=== PATIENT | male | born 1940 | race Caucasian/White ===

== ENCOUNTER 2019-05-05 18:19 | Emergency (ER) | payer MEDICARE, SELFPAY ==
[2019-05-05 18:19] VITALS: BP 157/90; PULSE 104; RESP 16; TEMP 36.3; O2SAT 98; BMI 21.8
[2019-05-05 18:45] VITALS: PULSE 99; RESP 15; O2SAT 99
--- NOTE | 2019-05-05 18:55 | RAD_ITS ---
STUDY: X-RAY - LUMBAR SPINE REASON FOR EXAM: Male, 78 years old. Lower back pain. Pain in legs. TECHNIQUE: 3 view(s) of the lumbar spine were obtained. COMPARISON: None FINDINGS: Normal lumbar lordosis. There is no substantial scoliosis. There is a normal alignment of the vertebrae. There is multilevel endplate spondylosis of the lumbar vertebrae. There is multi-level degenerative disc disease with multi-level disc space narrowing. There is no evidence of acute fracture or loss of vertebral axial height. Diffuse degenerative facet disease. There is atherosclerotic calcification of the abdominal aorta without a demonstrated aneurysm. RAD/Lumbar Spine 2 or 3 Views IMPRESSION: Degenerative changes of the spine, as detailed above. Electronically Signed: Antony Vu DO at 19:13 EDT Tel [phone], Service support ,
[2019-05-05] MEDS: HYDROcodone Bitartrate/Apap 5/325 Tablet PO (19:41)
--- NOTE | 2019-05-05 20:16 | ED.DCSUM_ITS ---
- ER Visit Summary Date of Service: 05/05/19 Chief Complaint: Back pain History of Present Illness: The patient is a 78 M with lumbar back pain that started around 11 AM. Nothing seemed to bring it on. Worse with movement. Nothing seems to make it better. No history of this in the past. The pain radiates down both legs. Patient denies abdominal pain or GI symptoms. Denies any urinary symptoms. Denies fever or systemic symptoms. Denies weakness or numbness. He has a history of peripheral arterial disease with stenting in his legs. He had an ultrasound of his legs last month which was unremarkable. Physical Examination: Afebrile and vital signs unremarkable. Abdomen soft and nontender. Lumbar spine is diffusely tender to palpation bilaterally over the lower lumbar region. Straight leg raise negative. Good strength and sensation. DP and PT pulses strong and equal bilaterally. Reflexes normal. Test Results: Lumbar x-rays show degenerative changes. He has a calcified aorta without aneurysm. Emergency Department Course and Treatment: Patient treated with [place] while awaiting results. I reviewed his imaging. Patient was feeling better on reevaluation and requested discharge. I believe this is myofascial pain. There is nothing to suggest GI, , vascular, or infectious etiology. No further imaging or diagnostic testing is indicated emergently. I believe the patient is appropriate for outpatient follow-up. He feels safe at home. He will follow-up with his family doctor or return for any worsening issues. He was given a short course of [place] for pain. Treatment Plan: As above Disposition: Discharged Impression: 1. Bilateral lumbar back pain This note was generated with [employer]akto[employer] dictation software. It may contain incorrect words, spelling, and punctuation that were not noted in review of the chart prior to signing ED Disposition - Plan for ED Patient: Referrals: Charanjit Nelson III, MD [Primary Care Provider] -
--- NOTE | 2019-05-05 20:19 | DCINST.ED_ITS ---
ED Disposition - Plan for ED Patient: Instructions: BACK PAIN (Acute or Chronic) Prescriptions: Hydrocodone Bitart/Apap 5-325 [Juana Diaz 5MG-325MG] 1 tab PO Q6H PRN PRN 3 Days #10 tab PRN Reason: Pain Prescription Printed Referrals: Charanjit Nelson III, MD [Primary Care Provider] -
[2019-05-05 20:27] VITALS: BP 167/74; PULSE 82; RESP 18
== END 2019-05-05 20:30 | disposition home or self-care (01) ==
PROVIDERS: Emergency Provider Emergency Medicine; Family Provider Family Medicine; PCP Family Medicine
DX: M54.5 Low back pain (principal); I70.0 Atherosclerosis of aorta; E11.9 Type 2 diabetes mellitus without complications; I10 Essential (primary) hypertension; E78.00 Pure hypercholesterolemia, unspecified; Z86.79 Personal history of other diseases of the circulatory system; Z95.828 Presence of other vascular implants and grafts; Z79.82 Long term (current) use of aspirin; Z79.4 Long term (current) use of insulin; Z79.899 Other long term (current) drug therapy; Z72.0 Tobacco use
CPT/HCPCS: 72100; 99283

== ENCOUNTER → 2019-12-11 | Outpatient (CLI) | payer MEDICARE, SELFPAY ==
--- NOTE | 2019-12-10 13:00 | FLU_PTH ---
PATIENT: ABEL SOLIS LOC: [facility] U#:[id number] AGE/SX: 79/M ROOM: RE12/11/[address]: Dr. Milla Person MD : [id number] BED: DIS: 12/11/2019 SPEC #: [id number] RECD: 12/11/19 12:44 STATUS: RACHNA REQ #: [id number] LOS: 12/10/19 13:[address]: Milla Person DEPT: CYTOLOGY RECD BY: Jayjay Self ENTERED: 12/11/19 13:23 SP TYPE: Fluid OTHR DR: Dr. Charanjit Nelson III, MD Tissues: A - Thyroid gland, NOS B - Thyroid gland, NOS Procedures: Special Stain Group II Surgery Specimen Level IV Cytospin Fluid Cytology Other HEADER OPERATION: Ultrasound-guided fine needle aspiration of right thyroid nodule PRE-OP DIAGNOSIS: Thyroid nodules TISSUE SUBMITTED: A - FNA right thyroid for cytology, B - FNA right thyroid x 8 slides DIAGNOSIS CYTOLOGY A. Right thyroid nodule fluid, ultrasound-guided FNA (cytospin and cell block): Consistent with benign follicular/colloid nodule. B. Right thyroid nodule, FNA (smears): Consistent with benign follicular/colloid nodule. Adequate for evaluation. ELIAS:gil 12/14/19 COMMENT Correlation with clinical, radiologic findings and appropriate follow up are necessary. CYTOLOGY STUDY Slides are reviewed. CYTOLOGY GROSS A - Received is 35 ml of turbid brown fluid labeled with the patient's name and and designated per the requisition as right thyroid. Submitted for cytology preparation including cell block. B - Received are eight smears labeled with the patient's name and designated per the requisition as right thyroid. Submitted for staining. / gil 12/11/19 TC:5 CPT: 85808, 88049, 82117
== END | disposition home or self-care (01) ==
PROVIDERS: PCP Family Medicine; Referring Provider Surgery; Visit Provider Surgery
DX: E04.2 Nontoxic multinodular goiter (principal)
CPT/HCPCS: 88108; 88161; 88305; 88313

== ENCOUNTER 2020-09-06 10:53 | Inpatient (IN) | payer MEDICARE, SELFPAY ==
[2020-09-06] VITALS (17 sets, daily range): BP systolic 135–174; BP diastolic 53–72; PULSE 72–100; RESP 13–18; TEMP 36.7–37.4; O2SAT 99–100; BMI 20.2; BMI 20.3; BMI 19.1
--- NOTE | 2020-09-06 11:45 | ED.VIS.GEN ---
History of Present Illness Chief Complaint: Abn Labs Informant: Patient Onset: Today Maximum Severity: Mild Narrative: Patient presents reporting his potassium is 6 on the blood draw during routine health visit check with his physician yesterday he was called about the above and told to come to the hospital he has no complaints he has been feeling well eating and drinking well normal bowel bladder habits he is on no supplements Past Medical History - Allergies and Home Meds Allergies/Adverse Reactions: Allergies varenicline tartrate [From Chantix] Allergy (Verified 09/06/20 10:54) makes me weird, hallucinations Primary Care Physician: Charanjit Nelson III, MD [Primary Care Provider] - Past Medical History: None Surgical History: - - wrist surgery in 1990 veing stripping, pad with stents 3 stents in left leg, abcess removed from his back Smoking Status: Current every day smoker - Family History Maternal Family History: Reports: No pertinent history, - - mother had a stroke, also had diabetes Paternal Family History: Reports: - - father of colon cancer, had diabetes Review of Systems General: Denies: Chills, Fever, Sweats Eyes: Denies: Visual changes - bilaterally, Diplopia ENT: Denies: Rhinorrhea, Sore throat Cardiovascular: Denies: Chest pain, Palpitations Respiratory: Denies: Dyspnea, Cough, Dyspnea on exertion Gastrointestinal: Denies: Abdominal pain, Nausea, Vomiting, Diarrhea, Melena, Hematochezia Genitourinary: Denies: Dysuria, Hematuria, Frequency Musculoskeletal: Denies: Back pain, Extremity Pain Skin: Denies: Rash, Wounds Neurological: Denies: Headache, Weakness, Numbness Physical Exam Vital Signs/Narrative: Vital Signs Temp Pulse Resp BP Pulse Ox 09/06/20 10:55 98.1 F 81 16 135/69 H 100 General: Well nourished, Well developed, No Acute Distress Head: Normocephalic, Atraumatic Eyes: Perrl, EOMI ENT: Moist mucous membranes, No rhinorrhea Neck: Supple, Nontender Cardiovascular: Regular rate, Regular rhythm, No murmurs Respiratory: No distress, CTA bilaterally, Chest nontender Abdomen: Soft, Nontender, Nondistended, Normal bowel sounds Back: Nontender, Normal Inspection Extremities: Nontender, No edema Skin: Normal color, No rash Neurological: Alert, Oriented x3, Cranial nerves II-XII grossly intact, Normal Strength, Normal Sensation Psychological: Normal affect, Normal Mood Diagnostic/Tx/Re-eval - Medical Decision Making Is resting comfortably in the bed he has absolutely no complaints eating and drinking well no complaints of fatigue chest pain fever cough the above screening labs were obtained to reevaluate for the high potassium reported on outpatient draw Patient's chemistry panel returns with potassium of 6.1, creatinine about 4.4 his baseline creatinine is about 2.6, his EKG shows a sinus rhythm rate of about 70 there appear to be peaked we will T waves compared to previous EKG, he was treated with the hyperkalemia protocol in addition he is noted to be anemic hemoglobin 6.6. He indicates he has had no vomiting of blood no black stools or red stools, he indicates he has been told he has anemia his baseline hemoglobin is running 9 range, he indicates he believes he had EGD and colonoscopy in the past and that he may have been told to use iron in the past for the anemia he is never required a blood transfusion I spoke with his attending physician Dr. vera given all the above he asked that he be considered for admission with hospitalist noting the patient was started on Benicar in the summer at that time again his baseline creatinine was about 2.6 and he had normal potassium he also noted that recent UAs have shown quite a bit of proteinuria Home Impression final hyperkalemia with EKG changes, history of unspecified anemia acute on chronic renal failure ED Disposition - Plan for ED Patient: Diagnosis: Acute on chronic renal failure hyperkale Referrals: Charanjit Nelson III, MD [Primary Care Provider] -
[2020-09-06 11:50] LABS: Absolute Lymphocyte Count 1.04 X10^3/uL (0.83-4.51); Absolute Neutrophil Count 5.7 X10^3/uL (2.0-7.7); Basophil# 0.04 X10^3/uL; Basophil% 0.5 % (0-1); Eosinophil# 0.13 X10^3/uL; Eosinophils% 1.7 % (0-5); Hematocrit 21.2 % (40-54); Hemoglobin 6.6 g/dL (13.0-16.5); Lymphocyte # 1.04 X10^3/ul (4.0); Lymphocyte % 13.9 % (19-41); Mean Corp Hgb Conc 31.1 g/dL (32-36); Mean Corpuscular Volume 99.5 fL (80-94); Mean Platelet Vol. 10.3 fl (6.2-12.0); Monocyte# 0.55 X10^3/uL; Monocyte% 7.4 % (0-10); NRBC Flagged by Analyzer 0 % (0-5); Neutrophil # 5.69 X10^3/uL (2.7-7.7); Neutrophil % 76.1 % (47-70); Platelet Count 254 K/mm3 (150-450); RBC Distribution Width CV 14.6 % (11.6-14.6); RBC Distribution Width SD 52.8 fl (35.1-43.9); Red Blood Count 2.13 M/mm3 (4.6-6.2); White Blood Count 7.5 K/mm3 (4.4-11.0)
[2020-09-06 12:04] LABS: Anion Gap 8 (5-15); BUN 62 mg/dL (7-18); BUN/Creat Ratio 14.4 RATIO (10-20); Calcium,Total 8.5 mg/dL (8.5-10.1); Chloride 113 mmol/L (98-107); EST Glomerular Filtration Rate 14 mL/min (>60); Est Glom Filt Rate - Afr Amer 17 mL/min (>60); Estimated Creatinine Clearance 11.97 ml/min; Glucose 84 mg/dL (74-106); Potassium 6.1 mmol/L (3.5-5.1); Sodium Level 136 mmol/L (136-145)
--- NOTE | 2020-09-06 13:06 | EKG12_ITS ---
Test Reason : ABNORMAL LABS Blood Pressure : / mmHG Vent. Rate : 069 BPM Atrial Rate : 069 BPM P-R Int : 188 ms QRS Dur : 080 ms QT Int : 386 ms P-R-T Axes : 050 015 057 degrees QTc Int : 413 ms Normal sinus rhythm Normal ECG Confirmed by INGRID BERRIOS, ASPEN ([id number]), film and video editor KAYKAY BRIONES ([id number]) on 09/09/2020 11:23:36 AM Referred By: RUBY/ELIAS Confirmed By:ASPEN QUINTERO MD
[2020-09-06] MEDS: Albuterol 2.5 MG/3 ML VIAL.NEB. INHALATION (13:55)
[2020-09-06 14:14] LABS: Bacteria 0 SEEN /hpf (None Seen); Mucous, Urine 0 SEEN /hpf (<or=2+); Squamous Epithelial Cells - UA 0 SEEN /hpf (0-5); White Blood Cells 0 SEEN /hpf (0-5)
[2020-09-06 14:24] LABS: Color, Urine Straw (Yellow); Glucose, Dipstick Normal (Normal); Ketone-Dipstick Negative (Negative); Leukocyte Esterase-Dipstick Negative /ul (Negative); Nitrite-Dipstick Negative (Negative); Occult Blood-Urine 10 /ul (Negative); Protein-Dipstick 500 mg/dl (Negative); Specific Gravity, Urine 1.015 (1.002-1.030); Urine Bilirubin Dipstick Negative (Negative); Urine Clarity Clear (Clear); Urine Urobilinogen Normal (Normal)
[2020-09-06] MEDS: Dextrose 50%-Water 25 GM/50 ML DISP.SYRIN IV (14:24)
[2020-09-06] MEDS: Calcium Gluconate 1 GM/10 ML Vial IV (14:24)
[2020-09-06] MEDS: Sodium Polystyrene Sulfonate 15 GM/60 ML UDC 30 GM PO (14:24)
[2020-09-06] MEDS: Insulin Lispro 5 UNIT in Syringe 0 ML 3 UNIT IV (14:25)
[2020-09-06 14:30] LABS: Red Blood Cells-Urine 0-5 SEEN /hpf (0-5)
--- NOTE | 2020-09-06 14:34 | NURSING ---
DR CORONA FOR DR ZAMBRANO
--- NOTE | 2020-09-06 14:47 | NURSING ---
PCU ACUTE ON CHRONIC RENAL FAILURE, HYPERKALEMIA, ANEMIA CHLOE
--- NOTE | 2020-09-06 14:58 | HP.PCM_ITS ---
<Breana Rodriguez DERMATOLOGY SALES REPRESENTATIVE - Last Filed: 09/06/20 15:45> Problem List (1) Colon polyps Status: Chronic (2) Tobacco use disorder Status: Chronic (3) PVD (peripheral vascular disease) Status: Chronic (4) Type II diabetes mellitus, uncontrolled Status: Chronic (5) Benign essential HTN Status: Chronic History of Present Illness Date of Admission: 09/06/20 Chief Complaint: Abnormal labs. The patient is a 79 year old M who presents to the emergency room due to abnormal labs. Patient states he was at his primary care provider yesterday for 6-month checkup and was called today and notified to come to ER due to abnormal labs. Patient is asymptomatic. He denies lightheadedness, shortness of breath, chest pain. Denies difficulty urinating or urinary symptoms. Denies blood in stool or dark stools. Denies nausea, vomiting, abdominal pain. Patient does state he has chronic right hip pain and needs his hip replaced. He is taking twice daily ibuprofen for pain. 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 Past Medical History Past Medical History (Chronic Problems): Chronic Problems Colon polyps (Chronic) Tobacco use disorder (Chronic) PVD (peripheral vascular disease) (Chronic) Type II diabetes mellitus, uncontrolled (Chronic) Benign essential HTN (Chronic) Allergies varenicline tartrate [From Chantix] Allergy (Verified 09/06/20 10:54) makes me weird, hallucinations Home Medications: Ambulatory Orders Medication Instructions Recorded Amlodipine [Norvasc] 10 mg PO DAILY 04/22/15 Insulin Glargine [Lantus SoloStar 12 units SC QHS 04/22/15 Pen] Hydrochlorothiazide [Hctz] 12.5 mg PO DAILY #30 tablet 05/02/15 Atorvastatin Calcium 10 mg PO QHS 05/05/19 Ferrous Sulfate 325 mg PO BID 05/05/19 Furosemide [Lasix] 20 mg PO DAILY 05/05/19 Cilostazol 100 mg PO BID 09/06/20 Labetalol [Trandate] 100 mg PO BID 09/06/20 Mycophenolate Mofetil 500 mg PO BID 09/06/20 Olmesartan Medoxomil [Benicar] 20 mg PO DAILY 09/06/20 Surgical History: - - wrist surgery in 1990 veing stripping, pad with stents 3 stents in left leg, abcess removed from his back, colon resection Psychiatric History: No pertinent psych hx Lives: Alone Smoking Status: Current every day smoker Tobacco Use: Cigarettes Alcohol: Sober - *Family History Maternal History Items: - - mother had a stroke, also had diabetes Paternal History Items: - - father of colon cancer, had diabetes Review of Systems Constitutional: Denies: Chills, Fever, Weight Change HEENT: Denies: Head Aches, Sinus Congestion, Sinus Drainage Cardiovascular: Denies: Chest Pain, Palpitations Respiratory: Denies: Cough, Shortness of breath at rest, Sputum production Gastrointestinal: Denies: Abdominal Pain, Nausea, Vomiting Genitourinary: Denies: Dysuria Musculoskeletal: Denies: Joint Pain, Joint Tenderness Skin: Denies: Rash, Wounds Neurological: Denies: Numbness, Tingling, Focal weakness Psychiatric: Denies: Anxiety, Depression, Homicidal Ideations, Suicidal Ideations Hematologic/ Lymphatic: Denies: Easy Bruising, Easy Bleeding VTE Information - Inpt Only VTE Present on Admission: No VTE Mechan Device Prophylaxis: SCD's VTE Pharm Prophylaxis ordered?: No Reason prophylaxis not ordered:: Medical Contraindication - Physical Exam Vitals/I&O's: Vital Signs Temp Pulse Resp BP Pulse Ox 98.1 F 94 15 172/72 H 100 09/06/20 10:55 09/06/20 14:04 09/06/20 14:04 09/06/20 14:04 09/06/20 10:55 Oxygen Delivery Method Room Air Weight: 129 lb 10.109 oz Body Mass Index (BMI) 20.2 Finger Stick Blood Glucose 146 Intake and Output for Last 24 Hours 09/04/20 09/05/20 09/06/20 23:59 23:59 23:59 Intake Total 500.05 / 500.05 Balance 500.05 / 500.05 General: Alert, Oriented x3, Cooperative HEENT: Atraumatic, PERRLA, EOMI, Normocephalic Neck: Supple, No JVD, Negative Carotid Bruits Lungs: Clear to auscultation, Normal air movement Cardiovascular: Regular rate, No murmurs Abdomen: Bowel Sounds Present, Soft, Non Tender Extremities: No clubbing, No cyanosis, No edema, Capillary Refill Less than 3 Seconds Skin: No rashes, No breakdown Musculoskeletal: No Tenderness to Palpation of Joints or Extremities Neurological: Cranial nerves II-XII grossly intact, Neuro grossly intact Psych/Mental Status: Normal Affect, Appropriate Laboratory Results 09/06/20 11:40: WBC 7.5, RBC 2.13 L, Hgb 6.6 L, Hct 21.2 L, MCV 99.5 H, MCH 31.0, MCHC 31.1 L, RDW Std Deviation 52.8 H, RDW Coeff of Mihaela 14.6, Plt Count 254, MPV 10.3, Immature Gran % (Auto) 0.400, Neut % (Auto) 76.1 H, Lymph % (Auto) 13.9 L, Shasta % (Auto) 7.4, Eos % (Auto) 1.7, Baso % (Auto) 0.5, Absolute Neuts (auto) 5.7, Absolute Lymphs (auto) 1.04, Nucleated RBC % 0 09/06/20 11:40: Sodium 136, Potassium 6.1 H*, Chloride 113 H, Carbon Dioxide 15.0 L, Anion Gap 8, BUN 62 H, Creatinine 4.30 H, Estim Creat Clear Calc 11.97, Est GFR (MDRD) Af Amer 17 L, Est GFR (MDRD) Non-Af 14 L, BUN/Creatinine Ratio 14.4, Glucose 84, Calcium 8.5 09/06/20 14:00: Urine Color Straw, Urine Clarity Clear, Urine pH 6.0, Ur Specific Corning 1.015, Urine Protein 500 H, Urine Glucose (UA) Normal, Urine Ketones Negative, Urine Occult Blood 10 H, Urine Nitrite Negative, Urine Bilirubin Negative, Urine Urobilinogen Normal, Ur Leukocyte Esterase Negative, Urine RBC 0-5 SEEN, Urine WBC 0 SEEN, Ur Squamous Epith Cells 0 SEEN, Urine B acteria 0 SEEN, Urine Mucus 0 SEEN Assessment/Plan 1. Acute blood loss anemia secondary to GI bleed on chronic anemia- history of bowel resection secondary to multiple polyps. Patient reports daily NSAID use due to right hip pain. IV PPI twice daily. Trend H&H. Transfuse 1 unit PRBC. Stool for occult blood ordered. 2. Acute kidney injury with hyperkalemia on chronic kidney disease stage III- hold ARB and HCTZ regimen. IV fluids, trend BMP. 3. Chronic right hip pain, arthritis- instructed on avoidance of NSAIDS. As needed pain regimen. 4. Type 2 diabetes [id number] with sliding scale insulin. Continue long-acting regimen. 5. Hypertension-stable, continue labetalol, amlodipine. Hold ARB. 6. PVD-continue statin. Hold cilostazol. History of vascular intervention. 7. Tobacco dependence-encouraged cessation. Current pack per day smoker. Nicotine replacement patch. 8. History of alcohol use-10 years sober. DVT prophylaxis- SCDs. This patient was seen by FAUSTINA Gonzalez under the supervision of Dr. Chun. <Solis Chun F - Last Filed: 09/06/20 16:54> History of Present Illness The patient is a 79 year old M [] Past Medical History Allergies varenicline tartrate [From Chantix] Allergy (Verified 09/06/20 10:54) makes me weird, hallucinations - Physical Exam Vitals/I&O's: Vital Signs Temp Pulse Resp BP Pulse Ox 98.4 F 84 18 156/71 H 99 09/06/20 16:16 09/06/20 16:16 09/06/20 16:16 09/06/20 16:16 09/06/20 16:16 Oxygen Delivery Method Room Air Weight: 126 lb 1.671 oz Body Mass Index (BMI) 19.1 Finger Stick Blood Glucose 146 Intake and Output for Last 24 Hours 09/04/20 09/05/20 09/06/20 23:59 23:59 23:59 Intake Total 500.05 / 500.05 Balance 500.05 / 500.05 Laboratory Results 09/06/20 11:40: WBC 7.5, RBC 2.13 L, Hgb 6.6 L, Hct 21.2 L, MCV 99.5 H, MCH 31.0, MCHC 31.1 L, RDW Std Deviation 52.8 H, RDW Coeff of Mihaela 14.6, Plt Count 254, MPV 10.3, Immature Gran % (Auto) 0.400, Neut % (Auto) 76.1 H, Lymph % (Auto) 13.9 L, Shasta % (Auto) 7.4, Eos % (Auto) 1.7, Baso % (Auto) 0.5, Absolute Neuts (auto) 5.7, Absolute Lymphs (auto) 1.04, Nucleated RBC % 0 09/06/20 11:40: Sodium 136, Potassium 6.1 H*, Chloride 113 H, Carbon Dioxide 15.0 L, Anion Gap 8, BUN 62 H, Creatinine 4.30 H, Estim Creat Clear Calc 11.97, Est GFR (MDRD) Af Amer 17 L, Est GFR (MDRD) Non-Af 14 L, BUN/Creatinine Ratio 14.4, Glucose 84, Calcium 8.5 09/06/20 14:00: Urine Color Straw, Urine Clarity Clear, Urine pH 6.0, Ur Specific [place] 1.015, Urine Protein 500 H, Urine Glucose (UA) Normal, Urine Ketones Negative, Urine Occult Blood 10 H, Urine Nitrite Negative, Urine Bilirubin Negative, Urine Urobilinogen Normal, Ur Leukocyte Esterase Negative, Urine RBC 0-5 SEEN, Urine WBC 0 SEEN, Ur Squamous Epith Cells 0 SEEN, Urine Bacteria 0 SEEN, Urine Mucus 0 SEEN 09/06/20 15:43: Blood Type Pending, Antibody Screen Pending Current Medications Acetaminophen (Acetaminophen 325 Mg Tablet) 650 mg PO Q6H PRN PRN PRN Reason: Pain Score 1-10 Amlodipine Besylate (Amlodipine 10 Mg Tablet) 10 mg PO DAILY [facility] Atorvastatin Calcium (Atorvastatin Calcium 10 Mg Tablet) 10 mg PO QHS [facility] Ferrous Sulfate (Ferrous Sulfate 325 Mg Tablet) 325 mg PO BIDCM [facility] Sodium Chloride () 1,000 mls @ 100 mls/hr IV .Q10H [facility] Last Admin: 09/06/20 16:39 Dose: 100 mls/hr Documented by: Pantoprazole Sodium 40 mg/ (Sodium Chloride) 110 mls @ 330 mls/hr IV Q12 [facility] Insulin Glargine (Insulin Glargine 100 Units/Ml Pen) 12 units SC QHS [facility] Insulin Human Lispro (Insulin Lispro 100 Unit/Ml Insuln.Pen) 0 unit SC ACHS [facility]; Protocol Last Admin: 09/06/20 16:43 Dose: Not Given Documented by: Labetalol HCl (Labetalol 100 Mg Tablet) 100 mg PO BID [facility] Mycophenolate Mofetil (Mycophenolate Mofetil 250 Mg Capsule) 500 mg PO BID [facility] Nicotine (Nicotine 14 Mg Patch) 14 mg TD DAILY [facility] Ondansetron HCl (Ondansetron 4 Mg/2 Ml Vial) 4 mg IV Q8H PRN PRN PRN Reason: NAUSEA/VOMITING Oxycodone HCl (Oxycodone 5 Mg Tablet) 5 mg PO Q4H PRN PRN PRN Reason: Pain Score 6-10 Addendum: Dr. Chun I personally examined the patient and reviewed the chart. I agree with the above. 79-year-old male presented to his PCP yesterday and had lab work which demonstrated a potassium of 6.0. He was called today to come to the ER where he was found to have a potassium of 6.1. EKGs were unremarkable and he did have Kayexalate as well as calcium gluconate and insulin and glucose given to try to lower his potassium. He denies any signs of overt bleeding but has noted that he has become more fatigued over the last several weeks. He states that he has been using Advil on a regular basis because of his hip pain. We will start him on Protonix and transfuse him at least 1 unit and with hemoglobin recheck. We will also try to test his stool for blood, he does have microscopic hematuria on his urine sample. Inpatient E&M: 19556 Init Hosp L3
[2020-09-06] MEDS: 0.9% Normal Saline 1,000 ML 100 ML IV (16:39)
[2020-09-06 16:50] LABS: Bedside Glucose 131 mg/dL (70-110)
[2020-09-06] MEDS: Ferrous Sulfate 325 MG Tablet PO (16:56)
[2020-09-06] MEDS: 0.9% Saline Lock 10 ML Syringe IV ×2 (17:51→22:20)
[2020-09-06 22:15] LABS: Bedside Glucose 131 mg/dL (70-110)
[2020-09-06] MEDS: Labetalol 100 MG Tablet PO (22:21)
[2020-09-06] MEDS: Atorvastatin Calcium 10 MG Tablet PO (22:21)
[2020-09-06] MEDS: Mycophenolate Mofetil 250 MG Capsule 500 MG PO (22:22)
[2020-09-07] VITALS (15 sets, daily range): BP systolic 148–173; BP diastolic 53–74; PULSE 59–99; RESP 18; TEMP 36.8–37.3; O2SAT 65–100
[2020-09-07 00:26] LABS: Hematocrit 20.8 % (40-54); Hemoglobin 6.5 g/dL (13.0-16.5)
[2020-09-07 07:05] LABS: Bedside Glucose 64 mg/dL (70-110)
[2020-09-07 07:11] LABS: Bedside Glucose 52 mg/dL (70-110)
[2020-09-07 07:11] LABS: Bedside Glucose 53 mg/dL (70-110)
[2020-09-07 07:26] LABS: Bedside Glucose 89 mg/dL (70-110)
[2020-09-07] MEDS: Ferrous Sulfate 325 MG Tablet PO ×2 (07:38→21:45)
[2020-09-07 09:13] LABS: Hematocrit 27.3 % (40-54); Hemoglobin 8.6 g/dL (13.0-16.5)
[2020-09-07] MEDS: amLODIPine 10 MG Tablet PO (09:25)
[2020-09-07] MEDS: Mycophenolate Mofetil 250 MG Capsule 500 MG PO ×2 (09:25→21:45)
[2020-09-07] MEDS: 0.9% Saline Lock 10 ML Syringe IV (09:25)
[2020-09-07] MEDS: Labetalol 100 MG Tablet PO ×2 (09:25→21:46)
[2020-09-07 09:36] LABS: Anion Gap 8 (5-15); BUN 63 mg/dL (7-18); BUN/Creat Ratio 15.7 RATIO (10-20); Calcium,Total 7.9 mg/dL (8.5-10.1); Chloride 114 mmol/L (98-107); Creatinine, Serum 4.01 mg/dL (0.70-1.30); EST Glomerular Filtration Rate 16 mL/min (>60); Est Glom Filt Rate - Afr Amer 19 mL/min (>60); Estimated Creatinine Clearance 12.48 ml/min; Glucose 85 mg/dL (74-106); Potassium 5.7 mmol/L (3.5-5.1); Sodium Level 138 mmol/L (136-145)
[2020-09-07 09:44] LABS: Ferritin 511 ng/mL (26-388); Iron 149 ug/dL (65-175); Iron Binding Capacity,Total 208 ug/dL (250-450); PERCENT IRON SATURATION 71.6 % (15.0-55.0)
--- NOTE | 2020-09-07 10:49 | CASEMGMT ---
JENIFER MCBRIDE assessment: Phone interview with patient for initial transition planning/care coordination assessment at this time. JENIFER MCBRIDE introduced self and role at [facility], pt voices understanding and consents to assessment at this time. Pt is A/O x4 at this time and answers all questions appropriately at this time. Care providers, pharmacy, and demographics verified at this time. Presentation: Sent by PCP for elev K+ Admitting dx: Hyperkalemia, anemia w/ MOODY PCP: Leslie TAY Specialists: simona Enamorado in [place](was supposed to have hip replacement but postponed at this time) Preferred Pharm[facility]: [facility]cription Benefit: [facility] Living Will/HPOA: Pt states has LW/HPOA and is aware that they are not on file at [facility] at this time. Pt states daughter, Jovita Jackman, is HPOA. LNOK: Jovita Jackman, daughter/HPOA Living Arrangements: Pt states lives alone in apartment with elevator access and states no concerns at home at this time. Pt states is independent with ADL's. Transportation: Pt states friends drive or hires rides and states no transportation concerns at this time. DME/HHC: Pt states no current DME or need for any at this time. Pt states has had HHC in the past with wound vac placement but states has not been to SNF in the past. Pt states no concerns with going home at time of discharge. Pt states is retired. 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 Pt states no further concerns/needs at this time. CM to follow for PT/OT evals and any further discharge planning/needs. Advised pt to ask for CM if any further questions/concerns/needs arise, voices understanding. Pt Goal: Home Plan[place] JENIFER MCBRIDE
[2020-09-07 11:41] LABS: Bedside Glucose 72 mg/dL (70-110)
[2020-09-07] MEDS: 0.9% Normal Saline 1,000 ML 100 ML IV ×2 (12:40→22:59)
--- NOTE | 2020-09-07 13:23 | PCM.PN.HOSP ---
Reason for Visit: abnormal lives Subjective: Feels well. Had some diarrhea post kayexalate. Vitals/I&O's: Vital Signs Temp Pulse Resp BP Pulse Ox 37.1 C 59 L 18 148/74 H 100 09/07/20 08:00 09/07/20 11:00 09/07/20 08:00 09/07/20 08:00 09/07/20 08:00 Oxygen Delivery Method Room Air Weight: 57.2 kg Body Mass Index (BMI) 19.1 Finger Stick Blood Glucose 146 Intake and Output for Last 24 Hours 09/05/20 09/06/20 09/07/20 23:59 23:59 23:59 Intake Total 1531.72 / 1641.72 1428.33 / 1428.33 Balance 1531.72 / 1641.72 1428.33 / 1428.33 General: Alert, No apparent distress HEENT: Atraumatic, Normocephalic Oral: Moist Mucosa, No Gingival or Mucosal Lesions/ Ulcerations Neck: No Nodes, Thyroid Normal Size and Texture Lungs: Clear to auscultation, Normal air movement, No rhonchi, No wheeze, No rales Cardiovascular: Regular rate, Regular Rhythm, Normal S1, Normal S2, No murmurs Abdomen: Bowel Sounds Present, Soft, Non Tender, Non-Distended, No Hepato-splenomegaly Extremities: No edema, No Calf Tenderness Skin: No rashes, No breakdown Psych/Mental Status: Normal Affect, Appropriate Microbiology Past 72 Hours 09/07/20 09:04 Stool Stool Occult Blood (MARYANN) - Final 09/06/20 22:15 Stool Stool Occult Blood (MARYANN) - Final Laboratory Results 09/06/20 14:00: Urine Color Straw, Urine Clarity Clear, Urine pH 6.0, Ur Specific [place] 1.015, Urine Protein 500 H, Urine Glucose (UA) Normal, Urine Ketones Negative, Urine Occult Blood 10 H, Urine Nitrite Negative, Urine Bilirubin Negative, Urine Urobilinogen Normal, Ur Leukocyte Esterase Negative, Urine RBC 0-5 SEEN, Urine WBC 0 SEEN, Ur Squamous Epith Cells 0 SEEN, Urine Bacteria 0 SEEN, Urine Mucus 0 SEEN 09/06/20 15:43: Blood Type A POSITIVE, Antibody Screen NEGATIVE 09/06/20 15:43: Crossmatch See Detail 09/06/20 16:32: POC Glucose 131 H 09/06/20 22:06: POC Glucose 131 H 09/07/20 00:15: Hgb 6.5 L, Hct 20.8 L 09/07/20 06:42: POC Glucose 52 L 09/07/20 06:44: POC Glucose 53 L 09/07/20 07:01: POC Glucose 64 L 09/07/20 07:22: POC Glucose 89 09/07/20 09:00: Sodium 138, Potassium 5.7 H, Chloride 114 H, Carbon Dioxide 16.0 L, Anion Gap 8, BUN 63 H, Creatinine 4.01 H, Estim Creat Clear Calc 12.48, Est GFR (MDRD) Af Amer 19 L, Est GFR (MDRD) Non-Af 16 L, BUN/Creatinine Ratio 15.7, Glucose 85, Calcium 7.9 L 09/07/20 09:00: Vitamin B12 Pending 09/07/20 09:00: Iron 149, TIBC 208 L, Iron Saturation 71.6 H, Ferritin 511 H 09/07/20 09:00: RBC Folate Hemolysate Pending, RBC Folate Pending, Hematocrit Pending 09/07/20 09:00: Hgb 8.6 L, Hct 27.3 L 09/07/20 11:22: POC Glucose 72 Current Medications Acetaminophen (Acetaminophen 325 Mg Tablet) 650 mg PO Q6H PRN PRN PRN Reason: Pain Score 1-10 Amlodipine Besylate (Amlodipine 10 Mg Tablet) 10 mg PO DAILY [facility] Last Admin: 09/07/20 09:25 Dose: 10 mg Documented by: Atorvastatin Calcium (Atorvastatin Calcium 10 Mg Tablet) 10 mg PO QHS [facility] Last Admin: 09/06/20 22:21 Dose: 10 mg Documented by: Ferrous Sulfate (Ferrous Sulfate 325 Mg Tablet) 325 mg PO BIDCM [facility] Last Admin: 09/07/20 07:38 Dose: 325 mg Documented by: Sodium Chloride () 1,000 mls @ 100 mls/hr IV .Q10H [facility] Last Admin: 09/07/20 12:40 Dose: 100 mls/hr Documented by: Pantoprazole Sodium 40 mg/ (Sodium Chloride) 110 mls @ 330 mls/hr IV Q12 [facility] Last Infusion: 09/07/20 09:48 Dose: Infused Documented by: Sodium Chloride () 500 mls @ 15 mls/hr IV PRN PRN PRN Reason: Blood Transfusion Sodium Chloride () 250 mls @ 15 mls/hr IV .[id number] PRN PRN Reason: Saline Flush Sodium Chloride () 250 mls @ 15 mls/hr IV .[id number] PRN PRN Reason: Additional IVPB Infusion Insulin Glargine (Insulin Glargine 100 Units/Ml Pen) 12 units SC QHS [facility] Last Admin: 09/06/20 22:20 Dose: 12 u Documented by: Insulin Human Lispro (Insulin Lispro 100 Unit/Ml Insuln.Pen) 0 unit SC ACHS [facility]; Protocol Last Admin: 09/07/20 11:23 Dose: Not Given Documented by: Labetalol HCl (Labetalol 100 Mg Tablet) 100 mg PO BID [facility] Last Admin: 09/07/20 09:25 Dose: 100 mg Documented by: Mycophenolate Mofetil (Mycophenolate Mofetil 250 Mg Capsule) 500 mg PO BID [facility] Last Admin: 09/07/20 09:25 Dose: 500 mg Documented by: Nicotine (Nicotine 14 Mg Patch) 14 mg TD DAILY [facility] Last Admin: 09/07/20 09:25 Dose: Not Given Documented by: Ondansetron HCl (Ondansetron 4 Mg/2 Ml Vial) 4 mg IV Q8H PRN PRN PRN Reason: NAUSEA/VOMITING Oxycodone HCl (Oxycodone 5 Mg Tablet) 5 mg PO Q4H PRN PRN PRN Reason: Pain Score 6-10 Sodium Chloride (0.9% Saline Lock 10 Ml Syringe) 10 - 40 ml IV UD PRN PRN Reason: SALINE FLUSH Last Admin: 09/07/20 09:25 Dose: 10 ml Documented by: STROKE Vital Signs/Narrative: Vital Signs Pulse 09/07/20 11:00 59 L Medical Necessity - Tobacco Use Smoking Status: Current every day smoker Tobacco Use: Cigarettes Assessment/Plan All Active Problems MOODY (acute kidney injury) (Acute) Hyperkalemia (Acute) Anemia (Acute) 1. 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 hold HCTZ, olmesartan monitor nephrology consult in v outpt 2. Hyperkalemia 2/2 MOODY, olmesartan recheck improved, but still elevated post Kayexalate 3. Anemia s/p 1 unit improved after transfusion studies post 1 unit: showed iron level and ferritin normal hemoccult pending 4. DM2 continue basal insulin 5. VTE prophylaxis: SCDs. Inpatient E&M: 57521 Subs Hosp L2
[2020-09-07 15:07] LABS: Anion Gap 6 (5-15); BUN 59 mg/dL (7-18); BUN/Creat Ratio 14.7 RATIO (10-20); Calcium,Total 7.8 mg/dL (8.5-10.1); Chloride 115 mmol/L (98-107); Creatinine, Serum 4.02 mg/dL (0.70-1.30); EST Glomerular Filtration Rate 15 mL/min (>60); Est Glom Filt Rate - Afr Amer 19 mL/min (>60); Estimated Creatinine Clearance 12.45 ml/min; Glucose 122 mg/dL (74-106); Potassium 6.4 mmol/L (3.5-5.1); Sodium Level 138 mmol/L (136-145)
[2020-09-07] MEDS: Sodium Polystyrene Sulfonate 15 GM/60 ML UDC PO (16:30)
[2020-09-07 16:56] LABS: Bedside Glucose 91 mg/dL (70-110)
[2020-09-07] MEDS: Atorvastatin Calcium 10 MG Tablet PO (21:46)
[2020-09-07 22:51] LABS: Bedside Glucose 135 mg/dL (70-110)
[2020-09-08 02:20] VITALS: BP 160/67; PULSE 68; RESP 19; TEMP 36.6; O2SAT 98
[2020-09-08 03:00] VITALS: PULSE 66
[2020-09-08 05:38] LABS: Absolute Lymphocyte Count 1.23 X10^3/uL (0.83-4.51); Absolute Neutrophil Count 5.8 X10^3/uL (2.0-7.7); Basophil# 0.03 X10^3/uL; Basophil% 0.4 % (0-1); Eosinophil# 0.17 X10^3/uL; Hematocrit 24.9 % (40-54); Hemoglobin 7.6 g/dL (13.0-16.5); Lymphocyte # 1.23 X10^3/ul (4.0); Lymphocyte % 14.8 % (19-41); Mean Corp Hgb Conc 30.5 g/dL (32-36); Mean Corpuscular Hgb 29.8 pg (27.0-32.0); Mean Corpuscular Volume 97.6 fL (80-94); Mean Platelet Vol. 9.6 fl (6.2-12.0); Monocyte# 1.05 X10^3/uL; Monocyte% 12.6 % (0-10); NRBC Flagged by Analyzer 0 % (0-5); Neutrophil # 5.82 X10^3/uL (2.7-7.7); Neutrophil % 69.8 % (47-70); Platelet Count 173 K/mm3 (150-450); RBC Distribution Width CV 15.7 % (11.6-14.6); RBC Distribution Width SD 56.2 fl (35.1-43.9); Red Blood Count 2.55 M/mm3 (4.6-6.2); White Blood Count 8.3 K/mm3 (4.4-11.0)
[2020-09-08 06:15] LABS: Anion Gap 8 (5-15); BUN 62 mg/dL (7-18); BUN/Creat Ratio 14.9 RATIO (10-20); Calcium,Total 7.8 mg/dL (8.5-10.1); Chloride 116 mmol/L (98-107); Creatinine, Serum 4.15 mg/dL (0.70-1.30); EST Glomerular Filtration Rate 15 mL/min (>60); Est Glom Filt Rate - Afr Amer 18 mL/min (>60); Estimated Creatinine Clearance 12.06 ml/min; Glucose 36 mg/dL (74-106); Potassium 5.2 mmol/L (3.5-5.1); Sodium Level 140 mmol/L (136-145)
--- NOTE | 2020-09-08 06:30 | NURSING ---
Addendum entered by Ankita Blanco 09/08/20 06:55: Rechecked BS, still was only 52. paged d/t no PRN orders for D50. put in orders, 1/2 amp given per protocol. JENIFER Joseph. Original Note: Lab called this RN to report a panic value, blood glucose of 36. This RN checked pt's blood sugar and it was 34. Pt denied any symptoms. Gave pt orange juice and PB w/ crackers. Rechecked in ten minutes, up to 47. Will recheck again in a bit. JENIFER Joseph
[2020-09-08] MEDS: Dextrose 50%-Water 25 GM/50 ML DISP.SYRIN IV (06:52)
[2020-09-08 07:00] VITALS: PULSE 72
[2020-09-08 07:46] LABS: Bedside Glucose 133 mg/dL (70-110)
[2020-09-08 07:46] LABS: Bedside Glucose 52 mg/dL (70-110)
[2020-09-08] MEDS: Ferrous Sulfate 325 MG Tablet PO (08:02)
[2020-09-08 08:15] LABS: Urea Nitrogen, Urine 409 mg/dL (NO RANGE EST.)
[2020-09-08 08:20] VITALS: BP 169/63; PULSE 65; RESP 18; TEMP 36.8; O2SAT 100
[2020-09-08 09:09] LABS: LDH 196 U/L (87-241)
--- NOTE | 2020-09-08 10:23 | DCINST_ITS ---
- Discharge Diagnoses Current Active Problems: Current Active and Chronic Problems Colon polyps (Chronic) Tobacco use disorder (Chronic) PVD (peripheral vascular disease) (Chronic) Type II diabetes mellitus, uncontrolled (Chronic) Benign essential HTN (Chronic) You will use the following diet at home:: Calorie/Carbohydrate Controlled (specify 1200, 1400, etc) - 1800 erick / day, Cardiac Your food should be the consistency of: Regular Your liquids should be the consistency of: Regular/Thin Discharge Activity: Return to Normal Activity Call your doctor if you observe: Shortness of breath, Dizziness, Fainting spells Additional Instructions: You will need to have a CBC and BMP (labs) checked in 1 week. You will need to arrange this with your PCP. Allergies/Adverse Reactions: Allergies varenicline tartrate [From Chantix] Allergy (Verified 09/06/20 10:54) makes me weird, hallucinations Medications to take at Discharge Amlodipine [Norvasc] 10 mg PO DAILY 04/22/15 Atorvastatin Calcium 10 mg PO QHS 05/05/19 Ferrous Sulfate 325 mg PO BID 05/05/19 Labetalol [Trandate (Beta Chema)] 100 mg PO BID 09/06/20 Mycophenolate Mofetil 500 mg PO BID 09/06/20 Primary Care Physician: Charanjit Nelson III, MD [Primary Care Provider] - Please follow up with your Primary Care Physician in: 1-2 weeks Test Results: Test results from this visit will be discussed in further detail at your follow- up appointment, if applicable. Please Follow Up With: Katie Hamilton DO - Nephrology When: 1-2 weeks Proposed Discharge Date: 09/08/20
[2020-09-08] MEDS: Mycophenolate Mofetil 250 MG Capsule 500 MG PO (10:46)
[2020-09-08] MEDS: Labetalol 100 MG Tablet PO (10:46)
[2020-09-08] MEDS: amLODIPine 10 MG Tablet PO (10:46)
[2020-09-08 10:50] VITALS: BP 169/63; PULSE 65; RESP 18; TEMP 36.8; O2SAT 100
[2020-09-08 11:00] VITALS: PULSE 63
--- NOTE | 2020-09-08 11:25 | DS.PCM_ITS ---
<Omar Linder - Last Filed: 09/08/20 11:25> Discharge Date and Diagnosis Date of Admission: 09/06/20 Date of Discharge: 09/08/20 - Primary Discharge Diagnosis Acute Problems: MOODY on CKD 4 with hyperkalemia PVD Hypertension Type 2 diabetes with hypoglycemia - Secondary Discharge Diagnosis Chronic Problems: Chronic Problems Colon polyps (Chronic) Tobacco use disorder (Chronic) PVD (peripheral vascular disease) (Chronic) Type II diabetes mellitus, uncontrolled (Chronic) Benign essential HTN (Chronic) Hospital Course and Treatment Imaging Results: Operations: colectomy Procedures: None Summary of Care Provided: Hospital course: The patient is a 79 year old M past medical history of polyps, tobacco use, PVD, type 2 diabetes, hypertension, who presented to the emergency room due to abnormal labs. He was in his normal state of health however his outpatient labs demonstrated acute kidney injury and hyperkalemia, anemia so he was sent to the emergency room. His hemoglobin was 6.6, potassium was 6.1, BUN 62, creatinine 4.3. He was placed in the progressive care unit. He was transfused with 2 units packed red blood cells. He was given Kayexalate and IV fluids. He had good improvement in his potassium. Hemoccult was negative x2. HCTZ, Lasix, and olmesartan were discontinued due to his declining renal function and hyperkalemia. Pletal was discontinued due to his anemia. While here he developed significant hypoglycemia while on his normal home Lantus dose. This was discontinued. His glucose and his blood pressure remained stable despite these changes to his medications. He was discharged home in stable condition. He will need follow-up with nephrology in 1 to 2 weeks, follow-up with PCP in 1 to 2 weeks, and follow-up with a basic metabolic panel and CBC in 1 week. This patient was seen by Omar Linder PA-C under the supervision of Doctor Horowitz. [] - Physical Exam Vitals/I&O's: Vital Signs Temp Pulse Resp BP Pulse Ox 98.3 F 65 18 169/63 H 100 09/08/20 10:50 09/08/20 10:50 09/08/20 10:50 09/08/20 10:50 09/08/20 10:50 Oxygen Delivery Method Room Air Weight: 126 lb 1.671 oz Body Mass Index (BMI) 19.1 Finger Stick Blood Glucose 146 Intake and Output for Last 24 Hours 09/06/20 09/07/20 09/08/20 23:59 23:59 23:59 Intake Total 1531.72 / 1641.72 2778.33 / 2898.33 120 / 120 Balance 1531.72 / 1641.72 2778.33 / 2898.33 120 / 120 General: Alert, Oriented x3, Cooperative HEENT: Atraumatic, PERRLA, EOMI, Normocephalic Neck: Supple, No JVD, Negative Carotid Bruits Lungs: Clear to auscultation, Normal air movement Cardiovascular: Regular rate, No murmurs Abdomen: Bowel Sounds Present, Soft, Non Tender Extremities: No edema, Capillary Refill Less than 3 Seconds Skin: No rashes, No breakdown Musculoskeletal: No Tenderness to Palpation of Joints or Extremities Neurological: Cranial nerves II-XII grossly intact Psych/Mental Status: Normal Affect, Appropriate, Alert and oriented to time, place, person, mood and affect Microbiology Past 72 Hours 09/07/20 09:04 Stool Stool Occult Blood (MARYANN) - Final 09/06/20 22:15 Stool Stool Occult Blood (MARYANN) - Final Laboratory Results 09/07/20 11:22: POC Glucose 72 09/07/20 14:12: Sodium 138, Potassium 6.4 H*, Chloride 115 H, Carbon Dioxide 17.0 L, Anion Gap 6, BUN 59 H, Creatinine 4.02 H, Estim Creat Clear Calc 12.45, Est GFR (MDRD) Af Amer 19 L, Est GFR (MDRD) Non-Af 15 L, BUN/Creatinine Ratio 14.7, Glucose 122 H, Calcium 7.8 L 09/07/20 16:33: POC Glucose 91 09/07/20 21:43: POC Glucose 135 H 09/08/20 04:31: WBC 8.3, RBC 2.55 L, Hgb 7.6 L, Hct 24.9 L, MCV 97.6 H, MCH 29.8, MCHC 30.5 L, RDW Std Deviation 56.2 H, RDW Coeff of Mihaela 15.7 H, Plt Count 173, MPV 9.6, Immature Gran % (Auto) 0.400, Neut % (Auto) 69.8, Lymph % (Auto) 14.8 L, [place] % (Auto) 12.6 H, Eos % (Auto) 2.0, Baso % (Auto) 0.4, Absolute Neuts (auto) 5.8, Absolute Lymphs (auto) 1.23, Nucleated RBC % 0 09/08/20 04:31: Sodium 140, Potassium 5.2 H, Chloride 116 H, Carbon Dioxide 16.0 L, Anion Gap 8, BUN 62 H, Creatinine 4.15 H, Estim Creat Clear Calc 12.06, Est GFR (MDRD) Af Amer 18 L, Est GFR (MDRD) Non-Af 15 L, BUN/Creatinine Ratio 14.9, Glucose 36 L*, Calcium 7.8 L 09/08/20 04:31: Lactate Dehydrogenase 196 09/08/20 06:39: POC Glucose 52 L 09/08/20 07:41: POC Glucose 133 H 09/08/20 07:45: Eos Smear Total Cells Pending 09/08/20 07:45: Urine Urea Nitrogen 409 09/08/20 07:45: Urine Creatinine 49.30 Current Medications Acetaminophen (Acetaminophen 325 Mg Tablet) 650 mg PO Q6H PRN PRN PRN Reason: Pain Score 1-10 Amlodipine Besylate (Amlodipine 10 Mg Tablet) 10 mg PO DAILY [facility] Last Admin: 09/08/20 10:46 Dose: 10 mg Documented by: Atorvastatin Calcium (Atorvastatin Calcium 10 Mg Tablet) 10 mg PO QHS [facility] Last Admin: 09/07/20 21:46 Dose: 10 mg Documented by: Dextrose (Dextrose 50%-Water 25 Gm/50 Ml Disp.Syrin) 0 gm IV X1 PRN; Protocol PRN Reason: Hypoglycemia Last Admin: 09/08/20 06:52 Dose: 25 gm Documented by: Ferrous Sulfate (Ferrous Sulfate 325 Mg Tablet) 325 mg PO BIDCM [facility] Last Admin: 09/08/20 08:02 Dose: 325 mg Documented by: Glucagon (Glucagon 1 Mg/Ml Syringe) 1 mg IM .X1 PRN PRN Reason: Hypoglycemia Sodium Chloride () 1,000 mls @ 100 mls/hr IV .Q10H [facility] Last Admin: 09/07/20 22:59 Dose: 100 mls/hr Documented by: Pantoprazole Sodium 40 mg/ (Sodium Chloride) 110 mls @ 330 mls/hr IV Q12 [facility] Last Admin: 11/26/20 10:38 Dose: 330 mls/hr Documented by: Sodium Chloride () 500 mls @ 15 mls/hr IV PRN PRN PRN Reason: Blood Transfusion Sodium Chloride () 250 mls @ 15 mls/hr IV .[id number] PRN PRN Reason: Saline Flush Sodium Chloride () 250 mls @ 15 mls/hr IV .[id number] PRN PRN Reason: Additional IVPB Infusion Labetalol HCl (Labetalol 100 Mg Tablet) 100 mg PO BID [facility] Last Admin: 09/08/20 10:46 Dose: 100 mg Documented by: Mycophenolate Mofetil (Mycophenolate Mofetil 250 Mg Capsule) 500 mg PO BID [facility] Last Admin: 09/08/20 10:46 Dose: 500 mg Documented by: Nicotine (Nicotine 14 Mg Patch) 14 mg TD DAILY [facility] Last Admin: 09/08/20 10:40 Dose: Not Given Documented by: Ondansetron HCl (Ondansetron 4 Mg/2 Ml Vial) 4 mg IV Q8H PRN PRN PRN Reason: NAUSEA/VOMITING Oxycodone HCl (Oxycodone 5 Mg Tablet) 5 mg PO Q4H PRN PRN PRN Reason: Pain Score 6-10 Sodium Chloride (0.9% Saline Lock 10 Ml Syringe) 10 - 40 ml IV UD PRN PRN Reason: SALINE FLUSH Last Admin: 09/07/20 09:25 Dose: 10 ml Documented by: Discharge Diet: Low fat/ Low Cholesterol, 1800 Calorie Control Diet, 2000 mg Sodium Diet Discharge Activity: Return to Normal Activity Call your doctor if you observe: Shortness of breath, Dizziness, Fainting spells Home Medications: Medications to take at Discharge Amlodipine [Norvasc] 10 mg PO DAILY 04/22/15 Atorvastatin Calcium 10 mg PO QHS 05/05/19 Ferrous Sulfate 325 mg PO BID 05/05/19 Labetalol [Trandate (Beta Chema)] 100 mg PO BID 09/06/20 Mycophenolate Mofetil 500 mg PO BID 09/06/20 Primary Care Physician: Charanjit Nelson III, MD [Primary Care Provider] - Please follow up with your Primary Care Physician in: 1-2 weeks Please Follow Up With: Katie Hamilton DO - Nephrology When: 1-2 weeks Disposition: Home Minutes spent on discharge:: 35 Patient Condition:: Stable Medical Necessity - Tobacco Use Smoking Status: Current every day smoker Tobacco Use: Cigarettes Meaningful Use Info Meaningful Use Diagnoses (Choose all that apply): None applicable <Ramana Cantrell - Last Filed: 09/08/20 13:01> Discharge Date and Diagnosis - Secondary Discharge Diagnosis Chronic Problems: Chronic Problems Colon polyps (Chronic) Tobacco use disorder (Chronic) PVD (peripheral vascular disease) (Chronic) Type II diabetes mellitus, uncontrolled (Chronic) Benign essential HTN (Chronic) Hospital Course and Treatment Imaging Results: 09/08/20 07:21 Kidney and Bladder [US] Urgent Procedures: None Summary of Care Provided: Patient seen and examined independently. Data reviewed. I agree with the above note by the physician environmental emergencies assistant. The patient is a 79 year old M presents with abnormal labs. Hemoglobin was found to be 6.6, potassium 6.1, creatinine 4.3. Patient instructed to come to the emergency room. Patient was transfused 2 units of packed red blood cells and his hemoglobin came up to 7.6. Iron studies performed after the initial transfusion were unremarkable., B12 and folate are still pending. Patient will require further work-up, including endoscopy in regards to his anemia. Patient will require periodic monitoring of his hemoglobin. For the patient's hyperkalemia, thought attributable to his chronic kidney disease and also his olmesartan. That has been held in addition, given the patient's chronic kidney disease, his HCTZ and for most mild will be held. Patient did have issue with hypoglycemia and his insulin has been recommended to be held for now as the risks outweigh the benefits. Patient is otherwise doing well. Patient did have diarrhea with Kayexalate that he did receive for his hyperkalemia. His hyperkalemia overall is improved. [] - Physical Exam Vitals/I&O's: Vital Signs Temp Pulse Resp BP Pulse Ox 36.8 C 63 18 169/63 H 100 09/08/20 10:50 09/08/20 11:00 09/08/20 10:50 09/08/20 10:50 09/08/20 10:50 Oxygen Delivery Method Room Air Weight: 57.2 kg Body Mass Index (BMI) 19.1 Finger Stick Blood Glucose 146 Intake and Output for Last 24 Hours 09/06/20 09/07/20 09/08/20 23:59 23:59 23:59 Intake Total 1531.72 / 1641.72 2778.33 / 2898.33 1470 / 1470 Balance 1531.72 / 1641.72 2778.33 / 2898.33 1470 / 1470 General: Alert, Cooperative HEENT: Atraumatic, Normocephalic Lungs: Clear to auscultation, Normal air movement Cardiovascular: Regular rate, No murmurs Abdomen: Bowel Sounds Present, Soft, Non Tender, Non-Distended Psych/Mental Status: Normal Affect, Appropriate Microbiology Past 72 Hours 09/07/20 09:04 Stool Stool Occult Blood (MARYANN) - Final 09/06/20 22:15 Stool Stool Occult Blood (MARYANN) - Final Laboratory Results 09/07/20 14:12: Sodium 138, Potassium 6.4 H*, Chloride 115 H, Carbon Dioxide 17.0 L, Anion Gap 6, BUN 59 H, Creatinine 4.02 H, Estim Creat Clear Calc 12.45, Est GFR (MDRD) Af Amer 19 L, Est GFR (MDRD) Non-Af 15 L, BUN/Creatinine Ratio 14.7, Glucose 122 H, Calcium 7.8 L 09/07/20 16:33: POC Glucose 91 09/07/20 21:43: POC Glucose 135 H 09/08/20 04:31: WBC 8.3, RBC 2.55 L, Hgb 7.6 L, Hct 24.9 L, MCV 97.6 H, MCH 29.8, MCHC 30.5 L, RDW Std Deviation 56.2 H, RDW Coeff of Mihaela 15.7 H, Plt Count 173, MPV 9.6, Immature Gran % (Auto) 0.400, Neut % (Auto) 69.8, Lymph % (Auto) 14.8 L, [place] % (Auto) 12.6 H, Eos % (Auto) 2.0, Baso % (Auto) 0.4, Absolute Neuts (auto) 5.8, Absolute Lymphs (auto) 1.23, Nucleated RBC % 0 09/08/20 04:31: Sodium 140, Potassium 5.2 H, Chloride 116 H, Carbon Dioxide 16.0 L, Anion Gap 8, BUN 62 H, Creatinine 4.15 H, Estim Creat Clear Calc 12.06, Est GFR (MDRD) Af Amer 18 L, Est GFR (MDRD) Non-Af 15 L, BUN/Creatinine Ratio 14.9, Glucose 36 L*, Calcium 7.8 L 09/08/20 04:31: Lactate Dehydrogenase 196 09/08/20 06:39: POC Glucose 52 L 09/08/20 07:41: POC Glucose 133 H 09/08/20 07:45: Eos Smear Total Cells Pending 09/08/20 07:45: Urine Urea Nitrogen 409 09/08/20 07:45: Urine Creatinine 49.30 09/08/20 11:30: POC Glucose 116 H Discharge Diet: Low fat/ Low Cholesterol, 1800 Calorie Control Diet, 2000 mg Sodium Diet Discharge Activity: Return to Normal Activity Call your doctor if you observe: Shortness of breath, Dizziness, Fainting spells Disposition: Home Minutes spent on discharge:: 35 Patient Condition:: Stable Meaningful Use Info Meaningful Use Diagnoses (Choose all that apply): None applicable Inpatient E&M: 64846 Disch Hosp
[2020-09-08] MEDS: 0.9% Saline Lock 10 ML Syringe IV (11:31)
[2020-09-08 11:40] LABS: Bedside Glucose 116 mg/dL (70-110)
[2020-09-09 07:06] LABS: Bedside Glucose 47 mg/dL (70-110)
[2020-09-09 07:06] LABS: Bedside Glucose 34 mg/dL (70-110)
[2020-09-09 14:08] LABS: Folate, RBC (Hct) Test 26.3 % (37.5-51.0)
[2020-09-09 14:27] LABS: Vitamin B12 315 pg/mL (211-911)
[2020-09-09 16:08] LABS: Folates, RBC Test 981 ng/mL (>498)
--- NOTE | 2020-09-09 16:36 | CASEMGMT ---
JENIFER MCBRIDE Discharge Follow-Up Phone Call. [place]: 10 Strata: 3 Discharge Date: 09/08/20 Adm Dx: Hypercalcemia, anemia, MOODY Call to pt to inquire about how he has been doing since being discharged from the hospital. Pt stated, I'm doing pretty darn good. He denies having any questions about the discharge instructions, stating, I need to contact Dr Nelson and Dr Hamilton to schedule appts yet, but other than that, everything is alright. Pt denies having any questions about his medications. He stated, Nope. I was out of one of the medications but they came in the mail today RN RAE inquired about what medications arrived today. Pt states 2 different ones arrived, the Atorvastatin and Cilostazol (Pletal). JENIFER MCBRIDE noted that Pletal was not on discharge medication list and reviewed discharge summary. Noted that Pletal was discontinued d/t the anemia. JENIFER MCBRIDE informed pt of this. Pt voices understanding and states he will stop taking it and voices appreciation for the call. He denies having any questions/concerns/needs. JENIFER MCBRIDE thanked pt for choosing [facility]. Ying LENTZ RN, CM
[2020-09-10 14:29] LABS: Eosinophil Ct. Urine No Eosinophils Seen % (.)
== END 2020-09-08 12:50 | disposition home or self-care (01) | DRG 812 ==
LOC: ED 12:31 → PCU 14:57
PROVIDERS: Nurse Practitioner Family; Physician Assistant; Admitting Provider Family Medicine; Emergency Provider Emergency Medicine; PCP Family Medicine
DX: D62 Acute posthemorrhagic anemia (principal); N17.9 Acute kidney failure, unspecified; N18.4 Chronic kidney disease, stage 4 (severe); E87.5 Hyperkalemia; E11.22 Type 2 diabetes mellitus with diabetic chronic kidney disease; I12.9 Hypertensive chronic kidney disease with stage 1 through stage 4 chronic kidney disease, or unspecified chronic kidney disease; E11.649 Type 2 diabetes mellitus with hypoglycemia without coma; E11.51 Type 2 diabetes mellitus with diabetic peripheral angiopathy without gangrene; M16.11 Unilateral primary osteoarthritis, right hip; G89.29 Other chronic pain; Z86.010 Personal history of colon polyps; F17.210 Nicotine dependence, cigarettes, uncomplicated; Z87.19 Personal history of other diseases of the digestive system; Z95.820 Peripheral vascular angioplasty status with implants and grafts; Z79.4 Long term (current) use of insulin; Z79.899 Other long term (current) drug therapy; Z90.49 Acquired absence of other specified parts of digestive tract
CPT/HCPCS: 36415; 80048; 81001; 82274; 82570; 82607; 82728; 82747; 82962; 83540; 83550; 83615; 84540; 85014; 85018; 85025; 86850; 86900; 86901; 86920; 86922; 87205; 93005; 94640; 99284; 99406; J7030; J7040; P9016; A4216; J0610

== ENCOUNTER → 2020-09-26 11:01 | Outpatient (CLI) | payer MEDICARE, SELFPAY ==
[2020-09-06 16:18] VITALS: BMI 19.1
--- NOTE | 2020-09-26 11:06 | US_ITS ---
STUDY: RENAL ULTRASOUND - COMPLETE REASON FOR EXAM: Male, 79 years old. CKD 4 TECHNIQUE: Ultrasound evaluation of the kidneys was performed with real-time and static jung-scale imaging. COMPARISON: None. FINDINGS: RIGHT KIDNEY: Normal location of the right kidney, which is normal in size. The right kidney measures 10.0 cm. Increased echogenicity renal cortex consistent with chronic medical renal disease. The renal cortex measures 1.7 cm. 2.5 cm cyst in the upper pole the right kidney. 2 other exophytic cyst in the midsection the right kidney. There are no right renal calculi. There is no right hydronephrosis. DISTAL RIGHT URETER: There is non-visualization of the distal right ureter. There is no demonstrated right ureterovesical junction calculus. There is a visualized right ureteral jet. LEFT KIDNEY: Normal location of the left kidney, which is normal in size. The left kidney measures 9.2 cm. Increased echogenicity renal cortex consistent with chronic medical renal disease. The renal cortex measures 1.8 cm. 1.2 cm exophytic cyst of the lower pole the left kidney. There are no left renal calculi. There is no left hydronephrosis. DISTAL LEFT URETER: There is non-visualization of the distal left ureter. There is no demonstrated left ureterovesical junction calculus. There is a visualized left ureteral jet. BLADDER: The distended urinary bladder has a volume of 57 ml. The empty urinary bladder has a volume of ml. There is a normal wall thickness of the distended urinary bladder. There is no demonstrated mass within the urinary bladder. There are no demonstrated bladder calculi. US/Kidney and Bladder IMPRESSION: Chronic medical renal disease but no hydronephrosis to suggest obstruction. Electronically Signed: Uvaldo Kim MD at 13:34 EST Tel , Service support ,
== END ==
PROVIDERS: PCP Family Medicine; Referring Provider Internal Medicine Nephrology; Visit Provider Internal Medicine Nephrology
DX: N18.4 Chronic kidney disease, stage 4 (severe) (principal)
CPT/HCPCS: 76770

== ENCOUNTER → 2020-10-26 08:22 | Outpatient (CLI) | payer MEDICARE, SELFPAY ==
[2020-09-06 16:18] VITALS: BMI 19.1
[2020-10-26 08:35] VITALS: BP 150/71; PULSE 81; RESP 18; TEMP 36.5; O2SAT 100
[2020-10-26 09:11] VITALS: BP 150/71; PULSE 81; RESP 16; TEMP 36.5; O2SAT 100
[2020-10-26 09:26] VITALS: BP 154/79; PULSE 73; RESP 16; TEMP 36.6
[2020-10-26] MEDS: 0.9% NaCl Peripheral Flush Adult/Peds IV (09:30)
[2020-10-26 10:26] VITALS: BP 164/70; PULSE 68; RESP 16; TEMP 36.3; O2SAT 100
[2020-10-26 11:40] VITALS: BP 181/74; PULSE 72; RESP 16; TEMP 36.4; O2SAT 99
[2020-10-26] MEDS: Furosemide 40 MG/4 ML Vial IV (11:56)
[2020-10-26 12:42] VITALS: BP 174/67; PULSE 78; RESP 16; TEMP 36.4; O2SAT 100
== END ==
PROVIDERS: PCP Family Medicine; Referring Provider Internal Medicine Hematology & Oncology; Visit Provider Internal Medicine Hematology & Oncology
DX: D64.9 Anemia, unspecified (principal); N18.9 Chronic kidney disease, unspecified
CPT/HCPCS: 36430; 86850; 86900; 86901; 86920; 86922; J7040; P9016; A4216; J1940

== ENCOUNTER → 2020-10-31 14:18 | Outpatient (CLI) | payer MEDICARE, SELFPAY ==
[2020-09-06 16:18] VITALS: BMI 19.1
[2020-10-31 15:52] LABS: Hematocrit 25.7 % (40-54); Hemoglobin 8.3 g/dL (13.0-16.5); Mean Corp Hgb Conc 32.3 g/dL (32-36); Mean Corpuscular Hgb 29.4 pg (27.0-32.0); Mean Corpuscular Volume 91.1 fL (80-94); Mean Platelet Vol. 10.5 fl (6.2-12.0); Platelet Count 290 K/mm3 (150-450); RBC Distribution Width CV 17.4 % (11.6-14.6); RBC Distribution Width SD 58.8 fl (35.1-43.9); Red Blood Count 2.82 M/mm3 (4.6-6.2); White Blood Count 8.9 K/mm3 (4.4-11.0)
[2020-10-31 16:18] LABS: Vitamin D,25 Hydroxy 10.6 ng/mL
[2020-10-31 16:35] LABS: Albumin, Serum 3.1 g/dL (3.2-5.0); BUN 69 mg/dL (7-18); BUN/Creat Ratio 11.6 RATIO (10-20); Calcium,Total 8.4 mg/dL (8.5-10.1); Chloride 109 mmol/L (98-107); Creatinine, Serum 5.93 mg/dL (0.70-1.30); EST Glomerular Filtration Rate 10 mL/min (>60); Est Glom Filt Rate - Afr Amer 12 mL/min (>60); Glucose 134 mg/dL (74-106); Phosphorus 8.8 mg/dL (2.5-4.9); Potassium 4.7 mmol/L (3.5-5.1); Sodium Level 136 mmol/L (136-145)
[2020-11-01 08:37] LABS: PTHIN 517.8 pg/mL (18.4-80.1)
== END ==
PROVIDERS: PCP Family Medicine; Referring Provider Internal Medicine Nephrology; Visit Provider Internal Medicine Nephrology
DX: N18.4 Chronic kidney disease, stage 4 (severe) (principal); D64.9 Anemia, unspecified
CPT/HCPCS: 36415; 80069; 82306; 83970; 85027

== ENCOUNTER → 2020-11-02 11:41 | Outpatient (CLI) | payer MEDICARE, SELFPAY ==
[2020-11-02 13:23] LABS: Hepatitis B Surface Antigen Non-Reactive (Nonreactive)
[2020-11-03 14:51] LABS: Hepatitis B Core Ab Total Negative (Negative)
== END ==
PROVIDERS: PCP Family Medicine; Visit Provider Internal Medicine Nephrology
DX: N18.5 Chronic kidney disease, stage 5 (principal)
CPT/HCPCS: 36415; 86704; 87340

== ENCOUNTER 2020-11-04 06:00 | Day surgery (SDC) | payer MEDICARE, SELFPAY ==
[2020-11-03 09:17] VITALS: BMI 20.5
[2020-11-04] VITALS (8 sets, daily range): BP systolic 151–165; BP diastolic 56–68; PULSE 71–78; RESP 16–20; TEMP 36.5–37.1; O2SAT 98–100; BMI 20.5
--- NOTE | 2020-11-04 06:17 | HP.PCM_ITS ---
Problem List (1) Chronic renal failure, stage 5 Status: Chronic History and Physical Date of Admission: 11/04/20 Intake Visit Reasons: CHEST CATH PLACEMENT Chief Complaint: dialysis cath placement Shipping Lead Required: No Is patient in pain?: No Allergies varenicline tartrate [From Chantix] Allergy (Verified 11/03/20 09:18) makes me weird, hallucinations Medications Amlodipine [Norvasc] 10 mg PO DAILY 04/22/15 [History Confirmed 11/03/20] Atorvastatin Calcium 10 mg PO QHS 05/05/19 [History Confirmed 11/03/20] Ferrous Sulfate 325 mg PO BID 05/05/19 [History Confirmed 11/03/20] Mycophenolate Mofetil 500 mg PO BID 09/06/20 [History Confirmed 11/03/20] calcium acetate(phosphat bind) 667 mg capsule 667 mg PO ONCE 11/03/20 [History Confirmed 11/03/20] ergocalciferol (vitamin D2) 1,250 mcg (50,000 unit) capsule 1,250 mcg PO QMONTH 11/03/20 [History Confirmed 11/03/20] [facility] Medical History (Updated 11/03/20 @ 09:[address] Meir Nelson MD) Chronic renal failure, stage 5 (Chronic) Brain aneurysm (Acute) History of GI bleed (Acute) Atrial fibrillation (Acute) Hepatitis C (Acute) CVA (cerebral vascular accident) (Acute) COPD (chronic obstructive pulmonary disease) (Chronic) Asthma (Acute) Sleep apnea (Acute) MOODY (acute kidney injury) (Acute) Hyperkalemia (Acute) Anemia (Acute) Colon polyps (Chronic) Tobacco use disorder (Chronic) PVD (peripheral vascular disease) (Chronic) Type II diabetes mellitus, uncontrolled (Chronic) Benign essential HTN (Chronic) Surgical History (Updated 11/03/20 @ 09:16 by Marilyn Booth) History of vein stripping (Acute) History of surgery on left wrist (Acute) History of cataract extraction (Acute) History of colectomy (Acute) History of colonoscopy (Acute ~06/2020) Family History Mother CVA (cerebral vascular accident) Diabetes Hypertension Father Colon cancer Diabetes Brother Diabetes Social History (Updated 11/03/20 @ 10:[address] Meir Nelson MD) Smoking Status: Current every day smoker HPI HPI HPI: ABEL SOLIS, is a 79 M who presents to the office today for referred today for urgent placement of tunneled dialysis catheters. The patient is referred by Dr. Katie Hamilton and a written copy my surgical consult recommendations will return to her. The patient was discharged from the [facility] on September 08, 2020 with the following problem list: MOODY on CKD 4 with hyperkalemia PVD Hypertension Type 2 diabetes with hypoglycemia The patient states that at discharge he was at 15 cc/min creatinine clearance and now he is at 10. He is scheduled to have bilateral upper extremity vein mapping tomorrow. A request has been made for urgent placement of tunneled dialysis catheters to facilitate hemodialysis. The patient otherwise generally feels well. There has been a slow progressive weight loss. He is accompanied by his daughter today. He claims to have had bilateral lower extremity surgery per Dr. Laura Barba. For that he was on anticoagulant. Again that has been recently discontinued. RUN DATE: 11/03/20 Test Result Flag Adult Reference Range RENAL GLU 134 H 74-106 mg/dL Fasting Glucose result greater than or equal to 126 mg/dL suggests DIABETES MELLITUS per A.D.A. criteria. Please note revised GLUCOSE reference range effective 11/15/2017. BUN 69 H 7-18 mg/dL CREAT,SERUM 5.93 H 0.70-1.30 mg/dL The validity of the calculated GFR & GFRAA in patients over 70 years has not been determined. Clinical correlation is essential. EST GFR 10 L >60 mL/min Non- GFR Calc EST GFR - AA 12 L >60 mL/min GFR Calc BUN/CRE 11.6 10-20 RATIO ALB 3.1 L 3.2-5.0 g/dL CA,Total 8.4 L 8.5-10.1 mg/dL PHOS 8.8 H 2.5-4.9 mg/dL NA 136 136-145 mmol/L Potassium 4.7 3.5-5.1 mmol/L CL 109 H 98-107 mmol/L CO2 12.0 L 21.0-32.0 mmol/L HPI HPI HPI: ABEL SOLIS, is a 79 M who presents to the office today for ROS General General: Yes fatigue; no weight change, appetite, colon cancer, breast cancer or weakness HEENT HEENT: Yes eye surgery; no difficulty swallowing, eye injury, swollen glands or hoarseness Endo Endocrine: Yes diabetes mellitus; no thyroid disease, thyroid cancer, Hair loss, heat intolerance or cold int olerance [facility] [place] Musculoskeletal: No back problems, arthritis, rheumatoid arthritis, gout or joint pain Cardio Cardiovascular: Yes high blood pressure; no murmur, pacemaker, heart disease, atrial fibrillation, heart attack, heart stent, palpitations, shortness of breat with exertion or chest pain Psych Psychiatric: No depression, anxiety or hearing voices Resp Respiratory: Yes shortness of breath, Yes sleep apnea, No cough, No COPD, No asthma, No emphysema, No wheezing Gastro Gastrointestinal: No abdominal pain, No nausea or vomiting, No diarrhea, No constipation, No blood in stool, No acid reflux, No hemorrhoids, No ulcers, No gallbladder problem, No black,tarry stools [place] Hematologic: No blood thinners, No blood disorders, No bleeding, Yes anemia, No blood clots Neuro Neurologic: No weakness Exam Const General: cooperative, comfortable, no acute distress Nutritional Appearance: underweight Orientation: alert, awake [facility] Head: normal to inspection Chest Chest palpation & inspection: normal inspection of the chest Resp Effort & Inspection: normal respiratory effort Auscultation: clear to auscultation bilaterally Cardio Rate: regular rate Rhythm: regular rhythm Heart Sounds: no murmurs GI Palpation: soft, no hepatosplenomegaly Other: Scaphoid, evidence of weight loss, no hepatosplenomegaly, [facility] [place] Cervical Spine: normal cervical lordosis Neuro Cognition: normal cognition Extrem General: no calf tenderness Other: Mild right lower extremity nonpitting edema Psych Affect: normal affect Assessment & Plan Problems 1. Chronic renal failure, stage 5 N18.5 Plan Stage V chronic renal failure. I recommended the patient tolerated Alysis catheter. Plan for the right IJ approach possible left. He is aware of the technique, benefit, risk of alternatives. We will expedite his care. He is scheduled for tomorrow. He has not yet had bilateral upper extremity vein mapping. I anticipate that he would be a candidate for future AV fistula creation. We will subsequently see him back in the office post vein mapping to evaluate for possible future fistula creation as well. The patient and his daughter have had an opportunity to ask and have questions answered. They would like to proceed with surgical treatment. Copy: Dr. Katie Hamilton and Dr. Charanjit Nelson, III Meri Nelson M.D., F.A.C.S. Coding Level of Care Code 79635 Diagnoses Chronic renal failure, stage 5 N18.5 I have re-examined the patient. There are no clinical changes since date of exam. Procedure Criteria Procedure Type: Elective COVID Risk Discussion: The surgeon/proceduralist and patient have discussed in detail the risk of exposure to and/or potential harm posed by the COVID-19 virus with having a surgery/procedure at this time versus the risk of delaying the surgery/procedure. It is not possible to know either the risk of delaying the surgery or procedure or chance of getting an infection with perfect accuracy, but a joint decision was made between the patient and the surgeon/proceduralist to proceed at this time with the scheduled surgery/procedure as indicated on the consent form.
[2020-11-04] MEDS: 0.9% Normal Saline 1,000 ML 30 ML IV (07:03)
--- NOTE | 2020-11-04 07:08 | DCINST_ITS ---
Discharge Diet: Renal Diet Discharge Activity: May Not Shower, May Take a Tub Bath May shower in (days): 1 Lifting Restrictions: 10 pounds Call your doctor if your incision/area has: Continuous Slow Oozing, Sudden Increased Bleeding, Increased Pain/ Swelling, Increased Redness, Foul Smelling Discharge Call your doctor if you observe: Fever of 101 or Higher Suture Line Care: Avoid Pulling/Pushing, Avoid Pinching/Bending Additional Dressing/Incision Instructions:: Dressing changes will typically be performed at the dialysis center. Please contact Dr. Katie Hamilton and your dialysis center so as to initiate hemodialysis treatment. Additional Instructions: Office follow-up should be confirmed after you have your vein mapping procedure so we can discuss future creation of an arteriovenous hemodialysis fistula Allergies/Adverse Reactions: Allergies varenicline tartrate [From Chantix] Allergy (Verified 11/04/20 06:26) makes me weird, hallucinations Medications to take at Discharge Amlodipine [Norvasc] 10 mg PO DAILY 04/22/15 Atorvastatin Calcium 10 mg PO QHS 05/05/19 Ferrous Sulfate 325 mg PO BID 05/05/19 Mycophenolate Mofetil 500 mg PO BID 09/06/20 calcium acetate(phosphat bind) 667 mg capsule 667 mg PO ONCE 11/03/20 ergocalciferol (vitamin D2) 1,250 mcg (50,000 unit) capsule 1,250 mcg PO QMONTH 11/03/20 Primary Care Physician: Charanjit Nelson III, MD [Primary Care Provider] - Test Results: Test results from this visit will be discussed in further detail at your follow- up appointment, if applicable. Please Follow Up With: Meir Nelson MD - [phone] When: Confirm office appt. please
[2020-11-04 07:10] LABS: Bedside Glucose 106 mg/dL (70-110)
[2020-11-04] MEDS: Cefazolin 2 GM in 0.9% Normal Saline 100 ML IV (07:26)
[2020-11-04] MEDS: Heparin 10,000 UNITS/10 ML Vial 10000 UNITS (07:58)
[2020-11-04] MEDS: Bupivacaine Mpf 0.5% 30 ML VIAL (08:01)
[2020-11-04] MEDS: Lidocaine 1% (30 ml sdv) 30 ML Vial (08:02)
--- NOTE | 2020-11-04 08:05 | OP.PCM_ITS ---
Problem List (1) Chronic renal failure, stage 5 Status: Chronic Report of Operation Date of Procedure: 11/04/20 Pre-Operative Diagnosis: Stage V chronic renal failure Post-Operative Diagnosis: Same Surgery/Procedure Performed:: Right internal jugular 19 cm precurved palindrome catheter placement. Ref. [id number]. Lot. [id number]. Expiry date 03/01/2025 Description of Surgical Findings:: Timeout and informed consent was obtained. 79-year-old gent was taken to the operating placed on the table underwent monitored anesthesia care. Ancef 2 g were given intravenously. The right neck and chest were initially prepped with chlorhexidine. There was some left forearm IV adjustment. So we reprepped the right neck and chest then with Betadine. Under ultrasound guidance 1% lidocaine mixed 50-50 with 0.5% Marcaine was used as a local anesthetic. A total of 19 cc was used. Under ultrasound guidance a micropuncture needle was inserted in the right internal jugular vein followed by Seldinger wire advancement. Local was instilled down upon the chest wall. An exit site selected. The 19 cm precurved palindrome catheter was advanced from the chest to the neck site. A micropunc ture sheath was inserted. The micropuncture wire dilator removed. 035 J-wire was inserted. Confirmation of position performed with fluoroscopy. Serial dilatation was performed. Sheath dilator was then inserted the dilator wire removed the catheter advanced through the sheath the sheath was split the catheter positioned. Fluoroscopy demonstrated excellent position of the catheter with a nice curvilinear lie. It aspirated easily. It was flushed with saline and then 2 cc of heparinized saline per chamber. It was secured at the exit site with 3-0 nylon. The neck site was closed with interrupted 5-0 Vicryl subdermal stitch. Steri-Strip Telfa OpSite placed on the neck. Silver dressing applied at the exit site. Sponge and instrument and needle counts were reported to the surgeon to be correct. Blood loss minimal. Blood loss minimal. Specimens none. Drains none. The patient was taken to recovery room in satisfactory addition without apparent complication Meir Nelson M.D., F.A.C.S. Type of Anesthesia:: Local MAC Anesthesiologist: Lauri Rios
--- NOTE | 2020-11-04 08:25 | RAD_ITS ---
STUDY: X-RAY CHEST REASON FOR EXAM: Male, 79 years old. Post op dialysis catheter placement TECHNIQUE: Single AP portable view of the chest. COMPARISON: Comparison is made with prior study dated 05/11/2014. FINDINGS: A right-sided dialysis catheter has been placed. The tip is at the junction of the superior vena cava and right atrium. Mild increased linear markings at the left lung base suggestive of atelectasis and/or scarring. There is no demonstrated pleural abnormality. Normal size heart. Normal mediastinum and jen. Normal visualized pulmonary arteries. There is atherosclerotic calcification of the aortic arch with tortuosity. Normal visualized thoracic spine. There is degenerative osteoarthritis of the bilateral shoulders. There is no demonstrated abnormality of the visualized soft tissue structures of the upper abdomen. RAD/CXR for Line Placement IMPRESSION: The tip of the dialysis catheter is at the junction of the superior vena cava and right atrium. Electronically Signed: Samson Bob MD at 9:03 EST , Service support ,
--- NOTE | 2020-11-04 08:59 | SUR.PHASEI ---
SINCE ADMISSION TO PACU, SLOW SEEPING OF BLOOD NOTED FROM RIGHT SUBCLAVIAN INSERTION SITE. DIRECT PRESSURE APPLIED TO RIGHT SUBCLAVIAN AREA. NO HEMATOMA NOTED. STERILE SILVERCEL/OPSITE DRESSING APPLIED TO RIGHT SUBCLAVIAN INSERTION SITE. 5 POUND SANDBAG LAID ON RIGHT SUBCLAVIAN AREA.
--- NOTE | 2020-11-04 10:05 | SUR.PHASEII ---
PRESSURE APPLIED TO RIGHT SUBCLAVIAN INSERTION SITE FOR APPROXIMATELY 20 MIN. NO HEMATOMA NOTED. SILVERCEL DRESSING APPLIED TO INSERTION SITE. 4X4 GAUZE PRESSURE DRESSING AND OPSITE APPLIED OVER THAT. [address] OVER RIGHT SUBCLAVIAN AREA.
== END 2020-11-04 10:40 | disposition home or self-care (01) ==
LOC: SDC 06:01 → AC 06:01
PROVIDERS: PCP Family Medicine; Referring Provider Surgery; Visit Provider Surgery
PROC: (CPT 36558; principal; 2020-11-04 07:15)
DX: I12.0 Hypertensive chronic kidney disease with stage 5 chronic kidney disease or end stage renal disease (principal); E11.22 Type 2 diabetes mellitus with diabetic chronic kidney disease; N18.5 Chronic kidney disease, stage 5; Z99.2 Dependence on renal dialysis; Z20.828 Contact with and (suspected) exposure to other viral communicable diseases; D64.9 Anemia, unspecified; E11.51 Type 2 diabetes mellitus with diabetic peripheral angiopathy without gangrene; I48.91 Unspecified atrial fibrillation; G47.30 Sleep apnea, unspecified; J44.9 Chronic obstructive pulmonary disease, unspecified; G25.81 Restless legs syndrome; E78.00 Pure hypercholesterolemia, unspecified; Z87.19 Personal history of other diseases of the digestive system; Z86.010 Personal history of colon polyps; Z86.73 Personal history of transient ischemic attack (TIA), and cerebral infarction without residual deficits; Z79.899 Other long term (current) drug therapy; F17.200 Nicotine dependence, unspecified, uncomplicated; R60.0 Localized edema
CPT/HCPCS: 36558; 71045; 76000; 82962; 87426; 93970; C9803; C1750

== ENCOUNTER → 2020-11-04 10:31 | Outpatient (CLI) | payer MEDICARE, SELFPAY ==
[2020-11-04 06:37] VITALS: BMI 20.5
--- NOTE | 2020-11-04 10:34 | VDUE_ITS ---
Reason For Study: CKD, AVF placement Right Arm Left Arm Right Cephalic Vein at the wrist measures Left Cephalic Vein at the wrist measures 0.17 x 0.19 cm. 0.10 x 0.10 cm. Right Cephalic Vein in the forearm measures Left Cephalic Vein in the forearm measures 0.21 x 0.23 cm. 0.13 x 0.13 cm. Right Cephalic Vein below antecub measures Left Cephalic Vein below antecub measures 0.26 x 0.27 cm. 0.12 x 0.13 cm. Right Cephalic Vein above antecub measures Left Cephalic Vein above antecub measures 0.29 x 0.30 cm. 0.31 x 0.34 cm. Right Cephalic Vein mid bicep measures 0.21 Left Cephalic Vein at mid bicep measures x 0.24 cm. 0.36 x 0.40 cm. Right Cephalic Vein at the shoulder measures Mid bicep branch measures 0.29 x 0.36 cm. 0.30 x 0.32 cm. Left Cephalic Vein at the shoulder measures Right Basilic Vein at the origin measures 0.29 x 0.28 cm. 0.12 x 0.14 cm. Basilic vein at origin measures 0.18 x 0.16 Right Basilic Vein mid bicep measures 0.16 x cm. 0.16 cm. Basilic vein at bicep measures 0.15 x 0.15 Right Basilic Vein above antecub measures cm. 0.11 x 0.11 cm. Basilic vein above antecub measures 0.19 x Right Brachial artery measures 0.49 x 0.50 0.18 cm. cm with a velocity of 109 cm/sec. Left Brachial artery measures 0.50 x 0.52 cm Right Radial artery measures 0.29 x 0.30 cm with a velocity of 152 cm/sec. with a velocity of 77.1 cm/sec. Left Radial artery measures 0.27 x 0.26 cm with a velocity of 110.9 cm/sec. Interpretation Summary Patent and compressible bilateral upper extremity cephalic and basilic veins as noted. Bilateral upper arm basilic veins are unusually diminutive Bilateral upper arm cephalic veins borderline though slightly more generous on the left. Patent with normal flow bilateral radial and brachial arteries Ordering Physician: Katie Hamilton Referring Physician: JASVIR Nelson M.D. Performed By: Trina lCaire RVT ?
== END ==
PROVIDERS: PCP Family Medicine; Referring Provider Internal Medicine Nephrology; Visit Provider Internal Medicine Nephrology
DX: Z01.818 Encounter for other preprocedural examination (principal); N18.5 Chronic kidney disease, stage 5
CPT/HCPCS: 93970

== ENCOUNTER 2020-11-30 08:38 | Day surgery (SDC) | payer MEDICARE, SELFPAY ==
[2020-11-23 13:20] VITALS: BMI 20.2
--- NOTE | 2020-11-28 13:37 | EKG12_ITS ---
Test Reason : PREOP Blood Pressure : / mmHG Vent. Rate : 080 BPM Atrial Rate : 080 BPM P-R Int : 188 ms QRS Dur : 086 ms QT Int : 368 ms P-R-T Axes : 079 054 072 degrees QTc Int : 424 ms Normal sinus rhythm Normal ECG Confirmed by INGRID BERRIOS, ASPEN ([id number]), technical editor KAYKAY BRIONES ([id number]) on 11/29/2020 10:56:35 AM Referred By: Meir Nelson Confirmed By:ASPEN QUINTERO MD
[2020-11-28 14:49] LABS: Hematocrit 27.5 % (40-54); Hemoglobin 8.4 g/dL (13.0-16.5); Mean Corp Hgb Conc 30.5 g/dL (32-36); Mean Corpuscular Hgb 31.2 pg (27.0-32.0); Mean Corpuscular Volume 102.2 fL (80-94); Mean Platelet Vol. 9.8 fl (6.2-12.0); POSITIVE MORPHOLOGY YES; Platelet Count 287 K/mm3 (150-450); RBC Distribution Width CV 18.7 % (11.6-14.6); RBC Distribution Width SD 71.2 fl (35.1-43.9); Red Blood Count 2.69 M/mm3 (4.6-6.2); White Blood Count 7.7 K/mm3 (4.4-11.0)
[2020-11-28 14:51] LABS: Scan Indicated on CBC? Y/N YES- FLAGS NOTED
[2020-11-28 15:06] LABS: Anion Gap 8 (5-15); BUN 23 mg/dL (7-18); BUN/Creat Ratio 5.3 RATIO (10-20); Calcium,Total 8.5 mg/dL (8.5-10.1); Chloride 99 mmol/L (98-107); Creatinine, Serum 4.38 mg/dL (0.70-1.30); EST Glomerular Filtration Rate 14 mL/min (>60); Est Glom Filt Rate - Afr Amer 17 mL/min (>60); Glucose 210 mg/dL (74-106); Potassium 4.8 mmol/L (3.5-5.1); Sodium Level 134 mmol/L (136-145)
[2020-11-30] VITALS (8 sets, daily range): BP systolic 95–153; BP diastolic 49–61; PULSE 69–80; RESP 14–16; TEMP 36.7–37.4; O2SAT 95–100; BMI 19.1
--- NOTE | 2020-11-30 09:20 | HP.PCM_ITS ---
Problem List (1) Chronic renal failure, stage 5 Status: Chronic History and Physical Date of Admission: 11/30/20 Intake Visit Reasons: VM 11/04, AV FISTULA Chief Complaint: Discuss AV Fistula [employer] Required: No Accompanied by: Unknown Is patient in pain?: No Allergies varenicline tartrate [From Chantix] Allergy (Verified 11/23/20 13:23) makes me weird, hallucinations Medications Amlodipine [Norvasc] 10 mg PO DAILY 04/22/15 [History Confirmed 11/23/20] Atorvastatin Calcium 10 mg PO QHS 05/05/19 [History Confirmed 11/23/20] Ferrous Sulfate 325 mg PO BID 05/05/19 [History Confirmed 11/23/20] Mycophenolate Mofetil 500 mg PO BID 09/06/20 [History Confirmed 11/23/20] calcium acetate(phosphat bind) 667 mg capsule 667 mg PO ONCE 11/03/20 [History Confirmed 11/23/20] ergocalciferol (vitamin D2) 1,250 mcg (50,000 unit) capsule 1,250 mcg PO QMONTH 11/03/20 [History Confirmed 11/23/20] [facility] Medical History Chronic renal failure, stage 5 (Chronic) Brain aneurysm (Acute) History of GI bleed (Acute) Atrial fibrillation (Acute) Hepatitis C (Acute) CVA (cerebral vascular accident) (Acute) COPD (chronic obstructive pulmonary disease) (Chronic) Asthma (Acute) Sleep apnea (Acute) MOODY (acute kidney injury) (Acute) Hyperkalemia (Acute) Anemia (Acute) Colon polyps (Chronic) Tobacco use disorder (Chronic) PVD (peripheral vascular disease) (Chronic) Type II diabetes mellitus, uncontrolled (Chronic) Benign essential HTN (Chronic) Surgical History (Updated 11/23/20 @ 13:20 by [place]) History of vein stripping (Acute) History of surgery on left wrist (Acute) History of cataract extraction (Acute) History of colectomy (Acute) History of colonoscopy (Acute ~06/2020) history insertion dialysis catheter (Acute ~11/04/20) Family History Mother CVA (cerebral vascular accident) Diabetes Hypertension Father Colon cancer Diabetes Brother Diabetes Social History (Updated 11/23/20 @ 13:[address] Meir Nelson MD) Smoking Status: Heavy Smoker (>10/day) HPI HPI HPI: ABEL SOLIS, is a 80 M who presents to the office today for surgical consultation regarding creation of a arteriovenous hemodialysis fistula for dialysis. The patient is referred by Dr. Katie Hamilton and a written copy my surgical consult recommendations will return to her. As noted below November 04, 2020 he had bilateral upper extremity vein mapping. Unfortunately this demonstrates quite diminutive veins. He has had a left forearm fracture that required 6 hours of ORIF. He has an incision down to the wrist he is unclear as to why he is got an oblique incision close to the left antecubital space. The vein mapping suggests diminutive veins of the forearms. His left upper arm cephalic vein is borderline. On November 04, 2020 I placed a 19 cm precurved palindrome catheter forearm and he has been on hemodialysis ever since. When asked whether he feels better now than he did preoperatively he states he feels about the same. He presents with his daughter today. He does appear to be quite thin. Body weight is noted to be 133 with a BMI of 20.2 [facility] [address] [place] [address] Saphenous Vein Mapping, Bilat 11/04/20 1042 MR#: [id number] Name: ABEL SOLISRep #:[id number] : [id number] 79From: Meir Nelson MD Attending Dr: Dr. Katie Hamilton, DOStatus: REG CLI Ordering Dr: Katie Hamilton DODate: 11/04/20 Location:CVSSex: Admitted: Reason For Study: CKD, AVF placement Right Arm Left Arm Right Cephalic Vein at the wrist measures Left Cephalic Vein at the wrist measures 0.17 x 0.19 cm. 0.10 x 0.10 cm. Right Cephalic Vein in the forearm measures Left Cephalic Vein in the forearm measures 0.21 x 0.23 cm. 0.13 x 0.13 cm. Right Cephalic Vein below antecub measures Left Cephalic Vein below antecub measures 0.26 x 0.27 cm. 0.12 x 0.13 cm. Right Cephalic Vein above antecub measures Left Cephalic Vein above antecub measures 0.29 x 0.30 cm. 0.31 x 0.34 cm. Right Cephalic Vein mid bicep measures 0.21 Left Cephalic Vein at mid bicep measures x 0.24 cm. 0.36 x 0.40 cm. Right Cephalic Vein at the shoulder measures Mid bicep branch measures 0.29 x 0.36 cm. 0.30 x 0.32 cm. Left Cephalic Vein at the shoulder measures Right Basilic Vein at the origin measures 0.29 x 0.28 cm. 0.12 x 0.14 cm. Basilic vein at origin measures 0.18 x 0.16 Right Basilic Vein mid bicep measures 0.16 x cm. 0.16 cm. Basilic vein at bicep measures 0.15 x 0.15 Right Basilic Vein above antecub measures cm. 0.11 x 0.11 cm. Basilic vein above antecub measures 0.19 x Right Brachial artery measures 0.49 x 0.50 0.18 cm. cm with a velocity of 109 cm/sec. Left Brachial artery measures 0.50 x 0.52 cm Right Radial artery measures 0.29 x 0.30 cm with a velocity of 152 cm/sec. with a velocity of 77.1 cm/sec. Left Radial artery measures 0.27 x 0.26 cm with a velocity of 110.9 cm/sec. Interpretation Summary Patent and compressible bilateral upper extremity cephalic and basilic veins as noted. Bilateral upper arm basilic veins are unusually diminutive Bilateral upper arm cephalic veins borderline though slightly more generous on the left. Patent with normal flow bilateral radial and brachial arteries Ordering Physician: Katie Hamilton Referring Physician: JASVIR Nelson M.D. Performed By: Trina Claire RVT ? 11/04/20 1307 Date Meir Nelson MD HPI HPI HPI: ABEL SOLIS, is a 80 M who presents to the office today for ROS General General: Yes fatigue; no weight change, appetite, colon cancer, breast cancer or weakness HEENT HEENT: Yes eye surgery; no difficulty swallowing, eye injury, swollen glands or hoarseness Endo Endocrine: Yes diabetes mellitus; no thyroid disease, thyroid cancer, Hair loss, heat intolerance or cold intolerance Skin Skin: No rash or changing moles Breast Breast: No left breast lump, right breast lump, nipple discharge, breast pain, abnormal mammogram, abnormal US or breast enlargement Musc Musculoskeletal: Yes arthritis; no back problems, rheumatoid arthritis, gout or joint pain Cardio Cardiovascular: Yes high blood pressure; no murmur, pacemaker, heart disease, atrial fibrillation, heart attack, heart stent, palpitations, shortness of breat with exertion or chest pain Psych Psychiatric: No depression, anxiety or hearing voices Resp Respiratory: Yes shortness of breath, Yes sleep apnea, No cough, No COPD, No asthma, No emphysema, No wheezing Gastro Gastrointestinal: No abdominal pain, No nausea or vomiting, No diarrhea, No constipation, No blood in stool, No acid reflux, No hemorrhoids, No ulcers, No gallbladder problem, No black,tarry stools [place] Hematologic: No blood thinners, No blood disorders, No bleeding, Yes anemia, No blood clots Neuro Neurologic: No system reviewed and no additional complaints, except as docu, No as per HPI, No abnormal walking, No abnormal hearing, No abnormal movements, No abnormal speech, No behavioral changes, No burning sensations, No confusion, No seizure-like activity, No unsteadiness, No dizziness, No localized weakness, No frequent falls, No headache(s), No lack of coordination, No loss of vision, No memory loss, No numbness, No other visual disturbances, No radiating pain, No restless legs, No sensory deficit, No fainting, No tingling, No tremor(s), No weakness, No other Exam Const General: cooperative, frail appearing Nutritional Appearance: underweight Orientation: alert, awake [facility] Head: normal to inspection Eyes General: appearance normal, both eyes and all related structures Chest Breast Palpation: No nipple discharge Other: Increased anterior posterior diameter. Tunnel dialysis catheter right chest. Resp Auscultation: clear to auscultation bilaterally Other: Decreased respiratory excursion Cardio Heart Sounds: no murmurs Other: Distant heart sounds, regular rate rhythm GI Palpation: soft Auscultation: normal bowel sounds Musc Cervical Spine: normal cervical lordosis Skin Other: Multiple areas bilateral upper extremities and upper torso of self inflicted areas of excoriation and ulceration Neuro Cognition: normal cognition Other: Hard of hearing, hearing aids in place Extrem General: no calf tenderness Psych Affect: normal affect Assessment & Plan Problems 1. Chronic renal failure, stage 5 N18.5 Plan Complicated 80-year-old gentleman. He is right arm dominant. He is right IJ tunneled dialysis catheter is in place. He has multiple areas of self-induced excoriation secondary to the pruritus of his chronic renal failure. He has been on hemodialysis since November 04, 2020. I do not believe that he would be a good candidate for a prosthetic device. He already has his tunneled catheters. I propose for him an attempt at a left upper extremity brachial to cephalic arteriovenous hemodialysis fistula. I inspected his left upper arm with ultrasound today. The cephalic vein appears to be somewhat thick-walled but is patent and compressible. Care will need to be taken to avoid his previous oblique incision at the distal left antecubital space. With his daughter present I have discussed the technique, benefit, risk, alternatives. No guarantees of success have been offered. We will schedule and proceed at his discretion. Because of his medical comorbidities I would anticipate performing this under monitored anesthesia care with local anesthetic Copy: Dr. Charanjit Nelson, III and Dr. Katie Nelson M.D., F.A.C.S. Coding Level of Care Code Off vis,est,level 3 Diagnoses Chronic renal failure, stage 5 N18.5 I have re-examined the patient. There are no clinical changes since date of exam. Procedure Criteria Procedure Type: Elective COVID Risk Discussion: The surgeon/proceduralist and patient have discussed in detail the risk of exposure to and/or potential harm posed by the COVID-19 virus with having a surgery/procedure at this time versus the risk of delaying the surgery/procedure. It is not possible to know either the risk of delaying the surgery or procedure or chance of getting an infection with perfect accuracy, but a joint decision was made between the patient and the surgeon/proceduralist to proceed at this time with the scheduled surgery/procedure as indicated on the consent form.
--- NOTE | 2020-11-30 09:21 | DCINST_ITS ---
Discharge Diet: Renal Diet Discharge Activity: May Not Drive - for 2-3 days or while taking narcotic pain medications., May Shower, May Take a Tub Bath - in 5 days. Lifting Restrictions: 5 pounds Keep extremity elevated above heart level: - - Keep arm elevated above the heart level for 3 days. Additional Activity Instructions:: Exercise hand vigorously with a stress ball. Call your doctor if your incision/area has: Continuous Slow Oozing, Sudden Increased Bleeding - apply pressure and call your doctor., Increased Pain/ Swelling, Increased Redness, Foul Smelling Discharge Call your doctor if you observe: Fever of 101 or Higher Suture Line Care: Avoid Pulling/Pushing, Avoid Pinching/Bending Cleanse incision/area with: Keep Dressing Clean & Dry Additional Dressing/Incision Instructions:: Change or remove dressing in one day. May protect with a gauze bandaid. Allergies/Adverse Reactions: Allergies varenicline tartrate [From Chantix] Allergy (Verified 11/28/20 11:42) makes me weird, hallucinations Medications to take at Discharge Amlodipine [Norvasc] 10 mg PO DAILY 04/22/15 Atorvastatin Calcium 10 mg PO QHS 05/05/19 Ferrous Sulfate 325 mg PO BID 05/05/19 Mycophenolate Mofetil 500 mg PO BID 09/06/20 calcium acetate(phosphat bind) 667 mg capsule 667 mg PO ONCE 11/03/20 ergocalciferol (vitamin D2) 1,250 mcg (50,000 unit) capsule 1,250 mcg PO QMONTH 11/03/20 Primary Care Physician: Charanjit Nelson III, MD [Primary Care Provider] - Test Results: Test results from this visit will be discussed in further detail at your follow- up appointment, if applicable. Please Follow Up With: Meir Nelson MD - [phone] When: Call to make an appointment for suture removal and follow up in 10 days.
[2020-11-30 09:41] LABS: Bedside Glucose 95 mg/dL (70-110)
[2020-11-30] MEDS: 0.45% Normal Saline 1,000 ML 15 ML IV (09:46)
[2020-11-30] MEDS: Cefazolin 2 GM in 0.9% Normal Saline 100 ML IV (10:30)
[2020-11-30] MEDS: Bupivacaine Mpf 0.5% 30 ML VIAL (11:00)
[2020-11-30] MEDS: Heparin Injection (Vial) 5,000 UNIT/ML VIAL 5000 UNIT (11:00)
[2020-11-30] MEDS: Lidocaine 1% (30 ml sdv) 30 ML Vial (11:00)
--- NOTE | 2020-11-30 11:32 | PCM.OPRPT ---
Problem List (1) Chronic renal failure, stage 5 Status: Chronic Report of Operation Date of Procedure: 11/30/20 Pre-Operative Diagnosis: Stage V chronic renal insufficiency on hemodialysis Post-Operative Diagnosis: Same Surgery/Procedure Performed:: Left upper arm brachial to cephalic arteriovenous hemodialysis fistula creation Description of Surgical Findings:: Timeout and informed consent was obtained. 80-year-old gentleman was taken to the operating placed on the table underwent monitored anesthesia care. Ancef 2 g were given intravenously. The left hip extremity was sterilely prepped and draped with chlorhexidine. Ultrasound had been performed preprocedure to map out the course of the cephalic vein. 1% lidocaine mixed 50-50 with 0.5% Marcaine was used as a local anesthetic. A total of 6 cc was used. The patient had evidence of self excoriation so after the prepping I applied a OpSite 3000 and an attempt to exclude the excoriation sites. An oblique incision was made at the antecubital space sharp and blunt dissection was used to dissect the cephalic vein. It was circumferentially dissected free. Side branches were secured with hemoclips. Then sharp and blunt dissection used to identify the brachial artery which was quite superficial. The vein was ligated distally with 2 hemoclips. The patient received 5000 units of heparin. After adequate circulating time peripheral vascular clamps were placed on the brachial artery. A 11 blade was used to make an arteriotomy which was extended with Liriano scissors. The vein was slightly spatulated. A end-to-side anastomosis of the vein to the artery was created with a running 7-0 Prolene. Prior to completion there was good antegrade retrograde flow. Clamps were removed. Immediately there was good pulsatile flow within the fistula. There remained a 2+ left radial pulse. The hand appeared to be viable. The wound was closed with deep layer of interrupted 3-0 Vicryl. The skin was approximated running subicular 4-0 Monocryl. Doreen-Strips Telfa tape dressing applied. Sponge and instrument and needle counts were reported the surgeon to be correct. Specimens none. Drains none. Blood loss minimal. The patient was taken to the recovery area in satisfactory vision without apparent complication. Meir Nelson M.D., F.A.C.S. Type of Anesthesia:: Local MAC Anesthesiologist: Alec Rao
== END 2020-11-30 14:07 | disposition home or self-care (01) ==
LOC: SDC 08:38 → AC 08:38
PROVIDERS: PCP Family Medicine; Referring Provider Surgery; Visit Provider Surgery
PROC: (CPT 36821; principal; 2020-11-30 10:30)
DX: E11.22 Type 2 diabetes mellitus with diabetic chronic kidney disease (principal); I12.0 Hypertensive chronic kidney disease with stage 5 chronic kidney disease or end stage renal disease; N18.5 Chronic kidney disease, stage 5; I48.91 Unspecified atrial fibrillation; J44.9 Chronic obstructive pulmonary disease, unspecified; G47.30 Sleep apnea, unspecified; E11.51 Type 2 diabetes mellitus with diabetic peripheral angiopathy without gangrene; G25.81 Restless legs syndrome; E78.00 Pure hypercholesterolemia, unspecified; Z20.828 Contact with and (suspected) exposure to other viral communicable diseases; Z86.010 Personal history of colon polyps; Z86.73 Personal history of transient ischemic attack (TIA), and cerebral infarction without residual deficits; Z87.19 Personal history of other diseases of the digestive system; Z79.899 Other long term (current) drug therapy
CPT/HCPCS: 01780; 36821; 36415; 80048; 82962; 85027; 87426; 93005; C9803; J2405

== ENCOUNTER 2020-12-04 16:01 | Emergency (ER) | payer MEDICARE, SELFPAY ==
[2020-11-30 09:30] VITALS: BMI 19.1
[2020-12-04 16:03] VITALS: BP 176/65; PULSE 84; RESP 16; TEMP 36.7; O2SAT 100; BMI 19.1
--- NOTE | 2020-12-04 16:18 | EKG12_ITS ---
Test Reason : DIZZY Blood Pressure : / mmHG Vent. Rate : 079 BPM Atrial Rate : 079 BPM P-R Int : 000 ms QRS Dur : 080 ms QT Int : 370 ms P-R-T Axes : 000 029 058 degrees QTc Int : 424 ms Sinus Rhythm Abnormal ECG Confirmed by ASPEN QUINTERO MD ([id number]), news assignment editor KAYKAY BRIONES ([id number]) on 12/06/2020 11:37:41 AM Referred By: NATALIO Confirmed By:ASPEN QUINTERO MD
--- NOTE | 2020-12-04 16:28 | ED.VIS.GEN ---
History of Present Illness Chief Complaint: Dizziness Informant: Patient Onset: Today, Hours Context: Sudden Onset Timing: Intermittent Quality: [place] weak and slumped against a cart to the ground Location: Outside apartment complex Current Severity: - - None Maximum Severity: Moderate - Mild to moderate when he stands Worsened by: Upright position Relieved by: Supine position Associated Symptoms: 2 loose watery stools this morning Narrative: Patient 80-year-old male with multiple medical problems including hemodialysis. He receives hemodialysis on Saturday, and Saturday. He had a fistula placed left antecubital fossa approximate 1 week ago. He has a Vas-Cath right subclavian. He states he had 2 loose watery stools this morning. He denied blood or mucus in the stool. He did report nausea without vomiting. He denies fever or chills. He denies headache. He denies change in vision, blurred vision or double vision. He denies ringing in his ears or decreased hearing. He denies upper respiratory symptoms. He denies loss of taste or smell. He denies chest discomfort, orthopnea or PND. He denies cough or shortness of breath. He denies dyspnea on exertion. He states urine output is less than normal. He has had no ill contacts. He states he has been tested for Covid multiple times. He does have rash lower extremity due to venous stasis dermatitis. He does complain of tingling in his left upper extremity since the placement of the fistula. He denies vertigo. Patient states he lives on the third floor of an apartment complex. He took the elevator down. He was walking out towards his car when he felt weak and slumped against the car to the ground. This was associated with nausea. He had no other symptoms. Prior similar symptoms: No Recent Illness/Hospitalization: Yes - Past Medical History (1) Diverticulitis of intestine with abscess Status: Resolved (2) Anemia Status: Acute (3) Asthma Status: Acute (4) Atrial fibrillation Status: Acute (5) Brain aneurysm Status: Acute (6) CVA (cerebral vascular accident) Status: Acute (7) Hepatitis C Status: Acute (8) History of GI bleed Status: Acute (9) PVD (peripheral vascular disease) Status: Chronic (10) Tobacco use disorder Status: Chronic (11) Type II diabetes mellitus, uncontrolled Status: Chronic Past Medical History - Allergies and Home Meds Allergies/Adverse Reactions: Allergies varenicline tartrate [From Chantix] Allergy (Verified 12/04/20 16:07) makes me weird, hallucinations Primary Care Physician: Charanjit Nelson III, MD [Primary Care Provider] - Prior records reviewed: Yes Surgical History: - - wrist surgery in 1990 veing stripping, pad with stents 3 stents in left leg, abcess removed from his back, colon resection Lives: Alone Smoking Status: Current every day smoker Alcohol: None Drugs: None - Family History Maternal Family History: Family History (Last Reviewed 11/23/20 @ 13:19 by [place]) Mother CVA (cerebral vascular accident) Diabetes Hypertension Father Colon cancer Diabetes Brother Diabetes Family History: Reports: - Paternal Family History: Family History (Last Reviewed 11/23/20 @ 13:19 by [place]) Mother CVA (cerebral vascular accident) Diabetes Hypertension Father Colon cancer Diabetes Brother Diabetes Family History: Reports: - Review of Systems General: Denies: Chills, Fever, Malaise, Subjective, Sweats Eyes: Denies: Visual changes - bilaterally, Blurred Vision - bilaterally, Diplopia ENT: Denies: Bilateral ear pain, Rhinorrhea, Sore throat Cardiovascular: Denies: Chest pain, Palpitations Respiratory: Denies: Dyspnea, Cough, Dyspnea on exertion, Orthopnea, Paroxysmal nocturnal dyspnea Gastrointestinal: Reports: Nausea, Diarrhea. Denies: Abdominal pain, Vomiting, Constipation, Melena, Hematochezia, -, - Genitourinary: Reports: - - Patient reports decreased urine output from baseline.. Denies: Dysuria, Hematuria, Frequency Musculoskeletal: Denies: Myalgias, Arthralgias, Neck pain, Back pain, Swelling, Extremity Pain, -, - Skin: Denies: Rash, Wounds Neurological: Reports: Weakness, Parasthesia - Left upper extremity status post fistula placement. Denies: Headache Psych: Denies: Depression Endocrine: Denies: Polyuria, Polydipsia Hematologic: Denies: Easy bruising, Easy bleeding Allergy: Denies: Uticaria Physical Exam Vital Signs/Narrative: Vital Signs Temp Pulse Resp BP Pulse Ox 12/04/20 16:03 98.0 F 84 16 176/65 H 100 Inital Vital Signs reviewed: Yes General: Well nourished, Well developed, No Acute Distress Head: Normocephalic, Atraumatic Eyes: Perrl, EOMI, Pale conjunctiva. Negative for: Scleral icterus ENT: Moist mucous membranes, No rhinorrhea. Negative for: Nasal congestion, Sinus tenderness Neck: Supple, Nontender, No lymphadenopathy, No JVD, - Cardiovascular: Regular rate, No murmurs, Irregular Respiratory: No distress, CTA bilaterally, Chest nontender Abdomen: Soft, Nontender, Nondistended, Normal bowel sounds, No masses. Negative for: Hepatomegaly, Splenomegaly, Mass, Pulsatile mass Rectal: Deferred Back: Nontender, Normal Inspection Extremities: Nontender, No edema, - - Has a significant pulse noted over the fistula. There is no obvious thrill at this point. Skin: No Trauma, Pallor, Rash - Stasis dermatitis. Negative for: Normal color, No rash, Cyanosis, Diaphoresis, Jaundice Neurological: Alert, Oriented x3, Cranial nerves II-XII grossly intact, Normal Strength, Normal Sensation Psychological: Normal affect, Normal Mood Diagnostic/Tx/Re-eval Laboratory Results 12/04/20 12/04/20 18:28 18:28 WBC 8.8 RBC 2.44 L Hgb 7.7 L Hct 25.0 L MCV 102.5 H MCH 31.6 MCHC 30.8 L RDW Std Deviation 69.7 H RDW Coeff of Mihaela 18.6 H Plt Count 220 MPV 9.7 Immature Gran % (Auto) 0.300 Neut % (Auto) 75.3 H Lymph % (Auto) 12.6 L Runnels % (Auto) 9.5 Eos % (Auto) 1.8 Baso % (Auto) 0.5 Absolute Neuts (auto) 6.6 Absolute Lymphs (auto) 1.11 Nucleated RBC % 0 Sodium 133 L Potassium 4.7 Chloride 96 L Carbon Dioxide 32.0 Anion Gap 5 BUN 23 H Creatinine 3.28 H Estim Creat Clear Calc 14.94 Est GFR (MDRD) Af Amer 24 L Est GFR (MDRD) Non-Af 20 L BUN/Creatinine Ratio 7.0 L Glucose 133 H Calcium 8.4 L IV access was not obtainable. Patient drink several glasses of water. Orthostatics were repeated. He is no longer symptomatic however he does have decrease in his blood pressure. Suspect this is due to autonomic dysfunction. - Rhythm Strip Rhythm Strip: Sinus Rhythm Ectopy: PAC(s) - EKG Initial EKG Interpretation: Sinus Rhythm - Sinus rhythm with a ventricular to 79. AR interval is proximal 160 ms. QRS duration 80 ms. QT duration 370 ms. [place] is normal. The computer read EKG is accelerated junction. I am in disagreement. Prior: Unchanged - Prior EKG was performed on November 28, 2020. ED Disposition - Plan for ED Patient: Disposition: Home or Assisted Living Diagnosis: Generalized weakness, Orthostatic hypotension, Diarrhea, End-stage renal disease on hemodialysis Instructions: ED Weakness (Uncertain Cause), ED Hypotension, Orthostatic, ED Diarrhea, Unknown Cause Referrals: Charanjit Nelson III, MD [Primary Care Provider] -
--- NOTE | 2020-12-04 18:21 | ED.RN ---
Dr Zhou aware unable to start IV and draw labs. He will do fem stick.
[2020-12-04 18:23] VITALS: BP 158/64; PULSE 73; RESP 15; O2SAT 98
[2020-12-04 18:49] VITALS: BP 124/51; BP 171/66; BP 173/62; PULSE 75; PULSE 80; PULSE 92
[2020-12-04 18:56] LABS: Anion Gap 5 (5-15); BUN 23 mg/dL (7-18); Calcium,Total 8.4 mg/dL (8.5-10.1); Chloride 96 mmol/L (98-107); Creatinine, Serum 3.28 mg/dL (0.70-1.30); EST Glomerular Filtration Rate 20 mL/min (>60); Est Glom Filt Rate - Afr Amer 24 mL/min (>60); Estimated Creatinine Clearance 14.94 ml/min; Glucose 133 mg/dL (74-106); Potassium 4.7 mmol/L (3.5-5.1); Sodium Level 133 mmol/L (136-145)
[2020-12-04 19:02] LABS: Absolute Lymphocyte Count 1.11 X10^3/uL (0.83-4.51); Absolute Neutrophil Count 6.6 X10^3/uL (2.0-7.7); Basophil# 0.04 X10^3/uL; Basophil% 0.5 % (0-1); Eosinophil# 0.16 X10^3/uL; Eosinophils% 1.8 % (0-5); Hemoglobin 7.7 g/dL (13.0-16.5); Lymphocyte # 1.11 X10^3/ul (4.0); Lymphocyte % 12.6 % (19-41); Mean Corp Hgb Conc 30.8 g/dL (32-36); Mean Corpuscular Hgb 31.6 pg (27.0-32.0); Mean Corpuscular Volume 102.5 fL (80-94); Mean Platelet Vol. 9.7 fl (6.2-12.0); Monocyte# 0.84 X10^3/uL; Monocyte% 9.5 % (0-10); NRBC Flagged by Analyzer 0 % (0-5); Neutrophil # 6.63 X10^3/uL (2.7-7.7); Neutrophil % 75.3 % (47-70); POSITIVE MORPHOLOGY YES; Platelet Count 220 K/mm3 (150-450); RBC Distribution Width CV 18.6 % (11.6-14.6); RBC Distribution Width SD 69.7 fl (35.1-43.9); Red Blood Count 2.44 M/mm3 (4.6-6.2); White Blood Count 8.8 K/mm3 (4.4-11.0)
[2020-12-04 19:27] LABS: Differential Indicated SCAN CRITERIA MET
[2020-12-04 20:06] LABS: Anisocytosis 3+; Differential Comment SCANNED; Macrocytosis 1+; Platelet Estimate ADEQUATE (ADEQ); Schistocytes 1+; Tear Drop Cell RARE
[2020-12-04 21:17] VITALS: BP 160/64; PULSE 75; RESP 15; O2SAT 99
[2020-12-04 22:05] VITALS: BP 113/47; BP 137/52; BP 163/62; PULSE 73; PULSE 82; PULSE 94
[2020-12-04 22:59] VITALS: RESP 18
[2020-12-05 13:34] LABS: Pathologist Review Reviewed
== END 2020-12-04 22:55 | disposition home or self-care (01) ==
PROVIDERS: Emergency Provider Emergency Medicine; PCP Family Medicine
DX: I95.1 Orthostatic hypotension (principal); R53.1 Weakness; R19.7 Diarrhea, unspecified; N18.6 End stage renal disease; Z99.2 Dependence on renal dialysis; I49.1 Atrial premature depolarization; D64.9 Anemia, unspecified; I87.2 Venous insufficiency (chronic) (peripheral); E11.51 Type 2 diabetes mellitus with diabetic peripheral angiopathy without gangrene; E11.22 Type 2 diabetes mellitus with diabetic chronic kidney disease; J45.909 Unspecified asthma, uncomplicated; I48.91 Unspecified atrial fibrillation; Z87.19 Personal history of other diseases of the digestive system; Z86.73 Personal history of transient ischemic attack (TIA), and cerebral infarction without residual deficits; Z79.899 Other long term (current) drug therapy; F17.200 Nicotine dependence, unspecified, uncomplicated
CPT/HCPCS: 80048; 85025; 93005; 99284; A4216

== ENCOUNTER 2020-12-15 15:38 | Observation (INO) | payer MEDICARE, SELFPAY ==
[2020-12-15 15:39] VITALS: BP 166/65; PULSE 72; RESP 17; TEMP 36.7; O2SAT 100; BMI 18.3
--- NOTE | 2020-12-15 16:26 | EKG12_ITS ---
Test Reason : DISSINESS Blood Pressure : / mmHG Vent. Rate : 071 BPM Atrial Rate : 071 BPM P-R Int : 198 ms QRS Dur : 088 ms QT Int : 418 ms P-R-T Axes : 074 036 069 degrees QTc Int : 454 ms Sinus rhythm with Premature atrial complexes Otherwise normal ECG Confirmed by SAVANAH BERRIOS, JIMI ([id number]), editor magazine KAYKAY BRIONES ([id number]) on 12/19/2020 2:38:05 PM Referred By: SHANE Confirmed By:JIMI PAVON MD
--- NOTE | 2020-12-15 16:27 | ED.DCSUM_ITS ---
History of Present Illness Chief Complaint: Dizziness Informant: Patient, Family Onset: Weeks - several Context: Gradual Onset - after standing Timing: Intermittent Quality: lightheadedness Location: head Current Severity: - - gone Maximum Severity: Severe Worsened by: standing Relieved by: sitting/resting Associated Symptoms: near-syncopal today. dark loose stools. no bleeding from anywhere. Narrative: Over the past 4 to 5 weeks or so patient has been feeling progressively more weak and lightheaded. There are times when he stands up and feels lightheaded immediately, there also times such as today when he stands up and starts feeling lightheaded 5 minutes later or so. He had a fall a week or 2 ago because of this, he did not injure himself. He has had no episodes of loss of consciousness but today he came close. He is on no anticoagulants. He has been taking iron pills and seen dark stools recently, no blood. No nausea, vomiting, abdominal pain. He has had progressively worsening renal function and was started on dialysis about 6 weeks ago which she has been compliant with. - Past Medical History (1) Anemia Status: Chronic (2) Asthma Status: Chronic (3) Atrial fibrillation Status: Chronic (4) Brain aneurysm Status: Chronic (5) CVA (cerebral vascular accident) Status: Chronic (6) Hepatitis C Status: Chronic (7) History of GI bleed Status: Chronic (8) Sleep apnea Status: Chronic (9) Benign essential HTN Status: Chronic (10) COPD (chronic obstructive pulmonary disease) Status: Chronic (11) Chronic renal failure, stage 5 Status: Chronic (12) Colon polyps Status: Chronic (13) PVD (peripheral vascular disease) Status: Chronic (14) Type II diabetes mellitus, uncontrolled Status: Chronic Past Medical History - Allergies and Home Meds Allergies/Adverse Reactions: Allergies varenicline tartrate [From Chantix] Allergy (Verified 12/15/20 15:39) makes me weird, hallucinations Primary Care Physician: Charanjit Nelson III, MD [Primary Care Provider] - Surgical History: - - wrist surgery in 1990 veing stripping, pad with stents 3 stents in left leg, abcess removed from his back, colon resection Smoking Status: Current every day smoker - Family History Maternal Family History: Family History (Last Reviewed 11/23/20 @ 13:19 by Soni [place]) Mother CVA (cerebral vascular accident) Diabetes Hypertension Father Colon cancer Diabetes Brother Diabetes Family History: Reports: - Paternal Family History: Family History (Last Reviewed 11/23/20 @ 13:19 by Soni [place]) Mother CVA (cerebral vascular accident) Diabetes Hypertension Father Colon cancer Diabetes Brother Diabetes Family History: Reports: - Review of Systems General: Reports: Malaise - And lightheadedness. See HPI.. Denies: Chills, Fever, Sweats Eyes: Denies: Visual changes - bilaterally, Diplopia ENT: Denies: Bilateral ear pain, Rhinorrhea, Sore throat Cardiovascular: Denies: Chest pain, Palpitations Respiratory: Denies: Dyspnea, Cough, Dyspnea on exertion Gastrointestinal: Denies: Abdominal pain, Nausea, Vomiting, Diarrhea, Melena, Hematochezia Genitourinary: Denies: Dysuria, Hematuria, Frequency Musculoskeletal: Denies: Back pain, Swelling, Extremity Pain Skin: Denies: Rash, Wounds Neurological: Denies: Headache, Weakness, Numbness Physical Exam Vital Signs/Narrative: Vital Signs Temp Pulse Resp BP Pulse Ox 12/15/20 15:39 98.0 F 72 17 166/65 H 100 Inital Vital Signs reviewed: Yes General: Well nourished, Well developed, No Acute Distress Head: Normocephalic, Atraumatic Eyes: Perrl, EOMI ENT: Moist mucous membranes, No rhinorrhea Neck: Supple, Nontender Cardiovascular: Regular rate, Regular rhythm, No murmurs. Negative for: Tachycardia Respiratory: No distress, CTA bilaterally, Chest nontender Abdomen: Soft, Nontender, Nondistended, Normal bowel sounds Back: Nontender, Normal Inspection Extremities: Nontender, No edema. Negative for: Calf Tenderness Skin: Normal color, No rash, No Trauma Neurological: Alert, Oriented x3, Cranial nerves II-XII grossly intact, Normal Strength, Normal Sensation Psychological: Normal affect, Normal Mood Diagnostic/Tx/Re-eval Chest X-Ray - ED: 1 View, Read by ED Physician, No Acute Disease, Chronic Changes - Hyperinflation Impressions Chest X-Ray 12/15/20 16:54 IMPRESSION: No active disease. Electronically Signed: Uvaldo Kim MD at 17:04 EST Tel , Service support , 12/15/20 16:54 Chest 1 View (Portable) [RAD] Stat Laboratory Results 12/15/20 12/15/20 16:00 16:00 WBC 5.7 RBC 2.33 L Hgb 7.5 L Hct 23.9 L MCV 102.6 H MCH 32.2 H MCHC 31.4 L RDW Std Deviation 67.9 H RDW Coeff of Mihaela 18.3 H Plt Count 202 MPV 10.1 Immature Gran % (Auto) 0.300 Neut % (Auto) 63.7 Lymph % (Auto) 23.0 [place] % (Auto) 10.1 H Eos % (Auto) 2.4 Baso % (Auto) 0.5 Absolute Neuts (auto) 3.7 Absolute Lymphs (auto) 1.32 Nucleated RBC % 0 Platelet Estimate ADEQUATE RBC Morphology N CHROM Anisocytosis 2+ Sodium 137 Potassium 4.3 Chloride 95 L Carbon Dioxide 37.0 H Anion Gap 5 BUN 9 Creatinine 1.77 H Estim Creat Clear Calc 26.56 Est GFR (MDRD) Af Amer 48 L Est GFR (MDRD) Non-Af 40 L BUN/Creatinine Ratio 5.1 L Glucose 114 H Calcium 8.6 Troponin I < 0.015 - Rhythm Strip Rhythm Strip: Sinus Rhythm Rate: 70 Ectopy: None - EKG Initial EKG Interpretation: Sinus Rhythm, No Acute Injury Pattern - Medical Decision Making Patient has a hemoglobin of 7.5, showing a steady decline. He has been anemic in the past and required blood transfusion, but did not necessarily have the s radha symptoms that he or daughter can recall. Given his symptoms and living by himself, especially several episodes of near syncope I think admitting him is reasonable. Discussed with hospitalist Dr. Cantrell, who agrees with admitting him and would hold off on transfusing with blood for now. I sent a type and screen in case he requires it. ED Disposition - Plan for ED Patient: Disposition: Acute Care Hospital [facility] Diagnosis: Anemia, Chronic renal failure, stage 5, Near syncope Referrals: Charanjit Nelson III, MD [Primary Care Provider] -
[2020-12-15 16:49] LABS: Absolute Lymphocyte Count 1.32 X10^3/uL (0.83-4.51); Absolute Neutrophil Count 3.7 X10^3/uL (2.0-7.7); Basophil# 0.03 X10^3/uL; Basophil% 0.5 % (0-1); Eosinophil# 0.14 X10^3/uL; Eosinophils% 2.4 % (0-5); Hematocrit 23.9 % (40-54); Hemoglobin 7.5 g/dL (13.0-16.5); Lymphocyte # 1.32 X10^3/ul (4.0); Mean Corp Hgb Conc 31.4 g/dL (32-36); Mean Corpuscular Hgb 32.2 pg (27.0-32.0); Mean Corpuscular Volume 102.6 fL (80-94); Mean Platelet Vol. 10.1 fl (6.2-12.0); Monocyte# 0.58 X10^3/uL; Monocyte% 10.1 % (0-10); NRBC Flagged by Analyzer 0 % (0-5); Neutrophil # 3.65 X10^3/uL (2.7-7.7); Neutrophil % 63.7 % (47-70); POSITIVE MORPHOLOGY YES; Platelet Count 202 K/mm3 (150-450); RBC Distribution Width CV 18.3 % (11.6-14.6); RBC Distribution Width SD 67.9 fl (35.1-43.9); Red Blood Count 2.33 M/mm3 (4.6-6.2); White Blood Count 5.7 K/mm3 (4.4-11.0)
--- NOTE | 2020-12-15 16:54 | RAD_ITS ---
STUDY: X-RAY CHEST REASON FOR EXAM: Male, 80 years old. weakness TECHNIQUE: Single AP portable view of the chest. COMPARISON: 11/04/2020 FINDINGS: Tunneled right internal jugular dialysis catheter which is unchanged. The lungs are clear and expanded. There is no demonstrated pleural abnormality. Normal size heart. Normal mediastinum and jen. Normal visualized pulmonary arteries. Normal visualized aortic arch and descending thoracic aorta. Normal visualized thoracic spine. Normal visualized ribs, clavicles, and shoulders. There is no demonstrated abnormality of the visualized soft tissue structures of the upper abdomen. RAD/Chest 1 View (Portable) IMPRESSION: No active disease. Electronically Signed: Uvaldo Kim MD at 17:04 EST Tel , Service support ,
[2020-12-15 17:16] LABS: Anion Gap 5 (5-15); BUN 9 mg/dL (7-18); BUN/Creat Ratio 5.1 RATIO (10-20); Calcium,Total 8.6 mg/dL (8.5-10.1); Chloride 95 mmol/L (98-107); Creatinine, Serum 1.77 mg/dL (0.70-1.30); EST Glomerular Filtration Rate 40 mL/min (>60); Est Glom Filt Rate - Afr Amer 48 mL/min (>60); Estimated Creatinine Clearance 26.56 ml/min; Glucose 114 mg/dL (74-106); Potassium 4.3 mmol/L (3.5-5.1); Sodium Level 137 mmol/L (136-145)
[2020-12-15 17:20] LABS: Differential Indicated SCAN CRITERIA MET
[2020-12-15 17:32] LABS: Platelet Estimate ADEQUATE (ADEQ); Red Cell Morphology N CHROM NORMAL (NORM C&C)
[2020-12-15 17:33] LABS: Anisocytosis 2+
[2020-12-15 18:02] VITALS: PULSE 88; RESP 22; O2SAT 96
--- NOTE | 2020-12-15 18:30 | HP.PCM_ITS ---
Problem List (1) Near syncope Status: Acute (2) Diverticulitis of intestine with abscess Status: Resolved (3) Chronic renal failure, stage 5 Status: Chronic (4) History of vein stripping Status: Chronic (5) History of surgery on left wrist Status: Chronic (6) History of cataract extraction Status: Chronic (7) History of colectomy Status: Chronic (8) History of colonoscopy Status: Chronic (9) Brain aneurysm Status: Chronic (10) History of GI bleed Status: Chronic (11) Atrial fibrillation Status: Chronic (12) Hepatitis C Status: Chronic (13) CVA (cerebral vascular accident) Status: Chronic (14) COPD (chronic obstructive pulmonary disease) Status: Chronic (15) Asthma Status: Chronic (16) Sleep apnea Status: Chronic (17) MOODY (acute kidney injury) Status: Chronic (18) Anemia Status: Chronic (19) Colon polyps Status: Chronic (20) Tobacco use disorder Status: Chronic (21) PVD (peripheral vascular disease) Status: Chronic (22) Type II diabetes mellitus, uncontrolled Status: Chronic (23) Benign essential HTN Status: Chronic History of Present Illness Date of Admission: 12/15/20 Chief Complaint: dizziness The patient is a 80 year old M [facility] and had [facility]. Afterwards, he is being picked up by his daughter, and patient went to get up and nearly passed out. Patient was confused for short period of time and then she came to. No seizure-like activity was noted.. Patient had a similar episode back on for and was seen in the emergency room at that time he was found to be orthostatic dropping roughly 50 mmHg upon standing from laying. Patient was discharged home. Patient stated he felt similar to that time. Patient is also another episode but was not evaluated in the emergency room. Patient is daughter was concerned given the confusion and how ill he appeared. In the emergency room here, he had a work-up that was unremarkable. Patient was anemic appears to be stable. Patient does note black stools which she initially stated was new but then states he does not know how long its been going on. Patient is on iron. Patient states that he normally feels well but daughter notes he does get dizzy at times upon standing but never to the extent that was visualized today. [] Past Medical History Past Medical History (Chronic Problems): Chronic Problems (Last Reviewed 02/10/21 @ 13:19 by Soni Bay) Chronic renal failure, stage 5 (Chronic) History of vein stripping (Chronic) History of surgery on left wrist (Chronic) History of cataract extraction (Chronic) History of colectomy (Chronic) History of colonoscopy (Chronic ~06/2020) Brain aneurysm (Chronic) History of GI bleed (Chronic) Atrial fibrillation (Chronic) Hepatitis C (Chronic) CVA (cerebral vascular accident) (Chronic) COPD (chronic obstructive pulmonary disease) (Chronic) Asthma (Chronic) Sleep apnea (Chronic) MOODY (acute kidney injury) (Chronic) Anemia (Chronic) Colon polyps (Chronic) Tobacco use disorder (Chronic) PVD (peripheral vascular disease) (Chronic) Type II diabetes mellitus, uncontrolled (Chronic) Benign essential HTN (Chronic) Medical History: Medical History (Last Reviewed 12/15/20 @ 18:[address] Ramana Cantrell, DO) Chronic renal failure, stage 5 (Chronic) N18.5 Brain aneurysm (Chronic) I67.1 History of GI bleed (Chronic) Z87.19 Atrial fibrillation (Chronic) I48.91 Hepatitis C (Chronic) B19.20 CVA (cerebral vascular accident) (Chronic) I63.9 COPD (chronic obstructive pulmonary disease) (Chronic) J44.9 Asthma (Chronic) J45.909 Sleep apnea (Chronic) G47.30 MOODY (acute kidney injury) (Acute) N17.9 Hyperkalemia (Acute) E87.5 Anemia (Chronic) D64.9 Colon polyps (Chronic) Tobacco use disorder (Chronic) F17.200 PVD (peripheral vascular disease) (Chronic) I73.9 Type II diabetes mellitus, uncontrolled (Chronic) E11.65 Benign essential HTN (Chronic) I10 Allergies varenicline tartrate [From Chantix] Allergy (Verified 12/15/20 15:39) makes me weird, hallucinations Home Medications: Ambulatory Orders Medication Instructions Recorded Amlodipine [Norvasc] 10 mg PO DAILY 04/22/15 Atorvastatin Calcium 10 mg PO QHS 05/05/19 Ferrous Sulfate 325 mg PO BID 05/05/19 Mycophenolate Mofetil 500 mg PO BID 09/06/20 calcium acetate(phosphat bind) 667 667 mg PO ONCE 11/03/20 mg capsule ergocalciferol (vitamin D2) 1,250 1,250 mcg PO QMONTH 11/03/20 mcg (50,000 unit) capsule Cilostazol 100 mg PO DAILY 12/04/20 Olmesartan Medoxomil [Benicar] 20 mg PO DAILY 12/04/20 Surgical History: Surgical History (Last Reviewed 12/15/20 @ 18:[address] Ramana Cantrell DO) History of vein stripping (Chronic) Z98.890 History of surgery on left wrist (Chronic) Z98.890 History of cataract extraction (Chronic) Z98.49 History of colectomy (Chronic) Z90.49 History of colonoscopy (Chronic) Onset Date: ~06/2020 Z98.890 history insertion dialysis catheter Onset Date: ~11/04/20 Surgical History: - - wrist surgery in 1990 veing stripping, pad with stents 3 stents in left leg, abcess removed from his back, colon resection Psychiatric History: No pertinent psych hx Smoking Status: Current every day smoker Tobacco Use: Cigarettes - *Family History Maternal Family History: Family History (Last Reviewed 12/15/20 @ 18:[address] Ramana Cantrell DO) Mother CVA (cerebral vascular accident) Diabetes Hypertension Father Colon cancer Diabetes Brother Diabetes History Items: - Paternal Family History: Family History (Last Reviewed 12/15/20 @ 18:[address] Ramana Cantrell DO) Mother CVA (cerebral vascular accident) Diabetes Hypertension Father Colon cancer Diabetes Brother Diabetes History Items: - Review of Systems Constitutional: Denies: Anorexia, Fever, Night Sweats, Malaise, Weakness Eyes: Denies: Blurred vision, Double vision HEENT: Denies: Head Aches, Sinus Congestion, Sinus Drainage Cardiovascular: Denies: Chest Pain, Palpitations Respiratory: Denies: Cough, Shortness of breath at rest, Sputum production Gastrointestinal: Denies: Abdominal Pain, Nausea, Vomiting Genitourinary: Denies: Dysuria Musculoskeletal: Denies: Joint Pain, Joint Tenderness Skin: Denies: Rash, Wounds Neurological: Reports: Balance problems. Denies: Change in Speech, Focal weakness, Headaches Psychiatric: Denies: Anxiety, Depression Endocrine: Reports: Change in Body Habitus - Has lost several pounds as of late. Not trying to lose weight. Hematologic/ Lymphatic: Denies: Easy Bruising, Easy Bleeding, Hx of blood clot Comment: All review of systems were negative except as mentioned above in the history of present illness and the other review of systems. VTE Information - Inpt Only VTE Present on Admission: No VTE Mechan Device Prophylaxis: None VTE Pharm Prophylaxis ordered?: No Reason prophylaxis not ordered:: Treatment Not Indicated - Physical Exam Vitals/I&O's: Vital Signs Temp Pulse Resp BP Pulse Ox 36.7 C 88 22 H 166/65 H 96 12/15/20 15:39 12/15/20 18:02 12/15/20 18:02 12/15/20 15:39 12/15/20 18:02 Oxygen Delivery Method Room Air Weight: 54.6 kg Body Mass Index (BMI) 18.3 Finger Stick Blood Glucose 146 General: Alert, Cooperative, No apparent distress, Well developed, Well nourished HEENT: Atraumatic, Normocephalic Oral: Moist Mucosa, No Gingival or Mucosal Lesions/ Ulcerations Neck: No Nodes, Thyroid Normal Size and Texture Lungs: Clear to auscultation, Normal air movement, No rhonchi, No wheeze, No rales Cardiovascular: Regular rate, Regular Rhythm, Normal S1, Normal S2, No murmurs Abdomen: Bowel Sounds Present, Soft, Non Tender, Non-Distended, No Hepato- splenomegaly Extremities: No edema, No Calf Tenderness, - - Fistula in the left upper extremity with a palpable and audible thrill. No evidence of any cellulitis. Skin: No rashes, No breakdown Musculoskeletal: No Tenderness to Palpation of Joints or Extremities, Cachexia, Muscle Wasting Neurological: Cranial nerves II-XII grossly intact, Motor Exam 5/5 strength throughout Psych/Mental Status: Normal Affect, Appropriate Laboratory Results 12/15/20 16:00: WBC 5.7, RBC 2.33 L, Hgb 7.5 L, Hct 23.9 L, MCV 102.6 H, MCH 32.2 H, MCHC 31.4 L, RDW Std Deviation 67.9 H, RDW Coeff of Mihaela 18.3 H, Plt Count 202, MPV 10.1, Immature Gran % (Auto) 0.300, Neut % (Auto) 63.7, Lymph % (Auto) 23.0, [place] % (Auto) 10.1 H, Eos % (Auto) 2.4, Baso % (Auto) 0.5, Absolute Neuts (auto) 3.7, Absolute Lymphs (auto) 1.32, Nucleated RBC % 0, Platelet Estimate ADEQUATE, RBC Morphology N CHROM, Anisocytosis 2+ 12/15/20 16:00: Sodium 137, Potassium 4.3, Chloride 95 L, Carbon Dioxide 37.0 H, Anion Gap 5, BUN 9, Creatinine 1.77 H, Estim Creat Clear Calc 26.56, Est GFR ( MDRD) Af Amer 48 L, Est GFR (MDRD) Non-Af 40 L, BUN/Creatinine Ratio 5.1 L, Glucose 114 H, Calcium 8.6, Troponin I < 0.015 EKG reviewed showed normal sinus rhythm with PACs. No other acute process noted. Chest x-ray personally reviewed and showed tunneled dialysis catheter in the right chest. No effusions, infiltrate nor edema. Assessment/Plan All Active Problems (Last Reviewed 11/23/20 @ 13:19 by Soni [place]) Diverticulitis of intestine with abscess (Resolved) Near syncope (Acute) 1. Near syncope Patient did not lose complete consciousness but was very dizzy and also confused transiently. Symptoms clearly resolved when he was sitting or laying. Patient was evaluated with similar symptoms back on December 04 and had profound orthostatic hypotension or laying, he went from 163/60 to 113/47 upon standing. I feel that that is likely the cause of this bout. I suspect is probably related with his blood pressure medications but also the fluid shifts related with dialysis. He may have periods where his blood pressure does drop upon standing but it may not affect him in any significant way. Plan: * I will not give the patient any additional fluids as he is already received IV fluids in the patient. * Hold amlodipine and allow permissive hypertension * Check orthostatic vital signs * Symptoms do persist and is orthostatic may need to consider addition of Florinef * Check a.m. cortisol if low, check an ACTH stim test the following morning. * Patient was transiently confused during this episode. Patient has no focal neurologic deficits and his symptoms resolved very quickly upon laying down. No additional neurologic work-up at this time. 2. Anemia Likely of chronic disease. Patient had anemia labs performed on September 07: Iron was 149, ferritin was 511, B12 315 and folate 981. Patient already on ferrous sulfate Patient states that he is having black stool but cannot tell me definitively if this is new versus chronic. Plan * Continue to monitor for now. Would hold off on transfusions unless he drops further. * No need to check additional anemia studies as he already had an unremarkable work-up back in August. 3. End-stage renal disease per patient, due to diabetes Patient has been on hemodialysis every Saturday since October Patient will be observation status but if this hospitalization does extend beyond the fifth, consult Dr. Hamilton for dialysis as that would be his normal dialysis day. Patient on mycophenolate but does not know why. Reviewing records, patient had not been on mycophenolate back in 2014 but it is unclear when it was started and by whom. Patient denies any organ transplant or any autoimmune disease. Will continue for now as he has been on it at least since August. 4. Diabetes mellitus type 2 Had a hypoglycemic episode back in August and has since been taken off his insulin glargine. Plan * Blood sugar before every meal and at bedtime. Sliding scale insulin * No recent A1c since 2014 so we will repeat. 5. Moderate protein malnutrition Recent albumin of 3.1 from October 31, 2020. Plan * Consult dietary for recommendations. 6. VTE prophylaxis: Not indicated given observation status 7. Advanced care planning: Discussed with the patient. Patient wishes to be full CODE STATUS. Case discussed with the patient's daughter present at bedside. OBSV E&M: [id number] Initial observation care L3
[2020-12-15 18:44] VITALS: BP 136/45; BP 156/57; BP 171/59; PULSE 75; PULSE 77; PULSE 87
[2020-12-15 18:49] VITALS: BP 136/45; PULSE 77; RESP 20; TEMP 36.5; O2SAT 98
[2020-12-15 19:15] VITALS: BP 166/52; PULSE 73; RESP 16; TEMP 37.1; O2SAT 100
[2020-12-15 19:27] VITALS: PULSE 73
[2020-12-15 19:46] VITALS: BMI 17.8
[2020-12-15 19:56] VITALS: BMI 17.8
[2020-12-15] MEDS: Atorvastatin Calcium 10 MG Tablet PO (21:38)
[2020-12-15] MEDS: Mycophenolate Mofetil 250 MG Capsule 500 MG PO (21:38)
[2020-12-15 21:45] LABS: Bedside Glucose 225 mg/dL (70-110)
[2020-12-16] VITALS (16 sets, daily range): BP systolic 131–200; BP diastolic 53–81; PULSE 70–84; RESP 16–18; TEMP 36.7–37.1; O2SAT 95–99
[2020-12-16 05:43] LABS: Absolute Lymphocyte Count 1.22 X10^3/uL (0.83-4.51); Absolute Neutrophil Count 4.2 X10^3/uL (2.0-7.7); Basophil# 0.04 X10^3/uL; Basophil% 0.6 % (0-1); Eosinophil# 0.19 X10^3/uL; Hematocrit 23.5 % (40-54); Hemoglobin 7.1 g/dL (13.0-16.5); Lymphocyte # 1.22 X10^3/ul (4.0); Lymphocyte % 19.1 % (19-41); Mean Corp Hgb Conc 30.2 g/dL (32-36); Mean Corpuscular Hgb 32.1 pg (27.0-32.0); Mean Corpuscular Volume 106.3 fL (80-94); Mean Platelet Vol. 9.1 fl (6.2-12.0); Monocyte# 0.69 X10^3/uL; Monocyte% 10.8 % (0-10); NRBC Flagged by Analyzer 0 % (0-5); Neutrophil # 4.23 X10^3/uL (2.7-7.7); Neutrophil % 66.2 % (47-70); POSITIVE MORPHOLOGY YES; Platelet Count 164 K/mm3 (150-450); RBC Distribution Width CV 18.5 % (11.6-14.6); Red Blood Count 2.21 M/mm3 (4.6-6.2); White Blood Count 6.4 K/mm3 (4.4-11.0)
[2020-12-16 05:49] LABS: Differential Indicated SCAN CRITERIA MET
[2020-12-16 06:02] LABS: Bacteria 0 SEEN /hpf (None Seen); Mucous, Urine 0 SEEN /hpf (<or=2+); Red Blood Cells-Urine 0 SEEN /hpf (0-5); Squamous Epithelial Cells - UA 0 SEEN /hpf (0-5); White Blood Cells 0 SEEN /hpf (0-5)
[2020-12-16 06:03] LABS: International Normalized Ratio 1.1; Prothrombin Time (Protime)PT. 13.9 SECONDS (11.7-14.9)
[2020-12-16 06:03] LABS: Color, Urine Yellow (Yellow); Glucose, Dipstick 100 mg/dl (Normal); Ketone-Dipstick Negative (Negative); Leukocyte Esterase-Dipstick Negative /ul (Negative); Nitrite-Dipstick Negative (Negative); Occult Blood-Urine Negative /ul (Negative); Protein-Dipstick 500 mg/dl (Negative); Urine Bilirubin Dipstick Negative (Negative); Urine Clarity Clear (Clear); Urine Urobilinogen Normal (Normal)
[2020-12-16 06:18] LABS: Differential Comment SCANNED
[2020-12-16 06:19] LABS: Anisocytosis 2+; Macrocytosis 1+; Microcytosis 1+; Polychromasia RARE; Schistocytes RARE
[2020-12-16 06:45] LABS: Bedside Glucose 94 mg/dL (70-110)
[2020-12-16 08:52] LABS: Hemoglobin A1c < 3.8 % (3.8-5.6)
[2020-12-16] MEDS: Calcium Acetate 667 MG Capsule 1334 MG PO ×3 (08:56→17:11)
[2020-12-16] MEDS: Ferrous Sulfate 325 MG Tablet 650 MG PO ×2 (08:56→17:11)
[2020-12-16] MEDS: Mycophenolate Mofetil 250 MG Capsule 500 MG PO ×2 (08:57→21:50)
[2020-12-16] MEDS: Folic Acid/Vitamin B Comp W-C 1 Capsule 1 CAP PO (08:57)
[2020-12-16 09:05] LABS: ALB/GLOB Ratio 0.9 RATIO (0.9-2.4); AST(SGOT) 11 U/L (15-37); Alanine Aminotransfer ALT/SGPT 12 U/L (16-61); Albumin, Serum 2.4 g/dL (3.2-5.0); Alkaline Phosphatase 49 U/L (45-117); Anion Gap 4 (5-15); BUN 19 mg/dL (7-18); BUN/Creat Ratio 6.7 RATIO (10-20); Calcium,Total 8.1 mg/dL (8.5-10.1); Chloride 100 mmol/L (98-107); Creatinine, Serum 2.85 mg/dL (0.70-1.30); EST Glomerular Filtration Rate 23 mL/min (>60); Est Glom Filt Rate - Afr Amer 28 mL/min (>60); Estimated Creatinine Clearance 16.07 ml/min; Ferritin 1221 ng/mL (26-388); Globulin 2.6 g/dL (2.2-4.2); Glucose 83 mg/dL (74-106); Iron Binding Capacity,Total 184 ug/dL (250-450); Potassium 4.7 mmol/L (3.5-5.1); Sodium Level 138 mmol/L (136-145)
[2020-12-16] MEDS: Insulin Lispro 100 UNIT/ML INSULN.PEN SC (12:07)
[2020-12-16 12:12] LABS: Iron 107 ug/dL (65-175)
[2020-12-16 12:16] LABS: Bedside Glucose 200 mg/dL (70-110)
--- NOTE | 2020-12-16 15:06 | CASEMGMT ---
Per Lynne, pt has chair time TTS at [address] Hussein is updated at this time so that if pt were to be kept overnight, they could try to get pt discharged by chair time so that he can have OP dialysis. Isamar, PCU charged, updated as well at this time. Carmen BURGESS CM
--- NOTE | 2020-12-16 15:53 | CASEMGMT ---
JENIFER MCBRIDE in to discuss HART form with pt. RN CM explained HART form, pt voiced understanding. Pt signed HART form and filed in chart. Pt provided with copy of signed form. Pt had no further questions or concerns at this time.
--- NOTE | 2020-12-16 16:17 | PN_ITS ---
Patient Problems: Active and Suspected Problems (Last Reviewed 12/15/20 @ 18:[address] Ramana Cantrell, DO) Near syncope (Acute) Near syncope (Acute) Reason for Visit: Follow- up on near syncope/severe anemia Subjective: Patient was seen and examined. He feels improved. Patient is on oral iron and his stools have been dark. FOBT has been negative. His H&H was unable to be drawn. Discussed with his primary specialty finishing utility person, Dr. Hamilton; his hemoglobin 2 days ago in the dialysis center was 9. Objective: Physical exam: General: Alert, Cooperative, No apparent distress, Well developed, Well nourished HEENT: Atraumatic, Normocephalic Oral: Moist Mucosa, No Gingival or Mucosal Lesions/ Ulcerations Neck: No Nodes, Thyroid Normal Size and Texture Lungs: Clear to auscultation, Normal air movement, No rhonchi, No wheeze, No rales Cardiovascular: Regular rate, Regular Rhythm, Normal S1, Normal S2, No murmurs Abdomen: Bowel Sounds Present, Soft, Non Tender, Non-Distended, No Hepato- splenomegaly Extremities: No edema, No Calf Tenderness, - - Fistula in the left upper extremity with a palpable and audible thrill. No evidence of any cellulitis. Skin: No rashes, No breakdown Musculoskeletal: No Tenderness to Palpation of Joints or Extremities, Cachexia, Muscle Wasting Neurological: Cranial nerves II-XII grossly intact, Motor Exam 5/5 strength throughout Psych/Mental Status: Normal Affect, Appropriate Vitals/I&O's: Vital Signs Temp Pulse Resp BP Pulse Ox 98.6 F 84 18 154/53 H 98 12/16/20 13:40 12/16/20 13:40 12/16/20 13:40 12/16/20 13:40 12/16/20 13:40 Oxygen Delivery Method Room Air Weight: 53.2 kg Body Mass Index (BMI) 17.8 Finger Stick Blood Glucose 146 Orthostatic Vital Signs Start: 12/15/20 20:17 Freq: 0700 Status: Active Protocol: Activity Type Activity Date Activity User E-Sign Co-Sign Detail Recorded Client Recorded Date Recorded By Document 12/16/20 13:39 DEBORAH [id number] 12/16/20 13:40 DEBORAH 12/16/20 13:39 Orthostatic Vitals Standing -Blood Pressure (90/60-120/80) 148/74 H -Extremity Use Right Arm -Pulse Rate (60-100) 80 Sitting -Blood Pressure (90/60-120/80) 154/53 H -Extremity Use Right Arm -Pulse Rate (60-100) 84 Lying -Blood Pressure (90/60-120/80) 175/57 H -Extremity Use Right Arm -Pulse Rate (60-100) 84 Intake and Output for Last 24 Hours 12/14/20 12/15/20 12/16/20 23:59 23:59 23:59 Intake Total 740 / 740 850 / 850 Output Total 450 / 450 Balance 740 / 740 400 / 400 Microbiology Past 72 Hours 12/16/20 15:00 Stool Stool Occult Blood (MARYANN) - Final 12/15/20 18:00 Stool Stool Occult Blood (MARYANN) - Final Laboratory Results 12/15/20 16:00: WBC 5.7, RBC 2.33 L, Hgb 7.5 L, Hct 23.9 L, MCV 102.6 H, MCH 32.2 H, MCHC 31.4 L, RDW Std Deviation 67.9 H, RDW Coeff of Mihaela 18.3 H, Plt Count 202, MPV 10.1, Immature Gran % (Auto) 0.300, Neut % (Auto) 63.7, Lymph % (Auto) 23.0, Stevens % (Auto) 10.1 H, Eos % (Auto) 2.4, Baso % (Auto) 0.5, Absolute Neuts (auto) 3.7, Absolute Lymphs (auto) 1.32, Nucleated RBC % 0, Platelet Estimate ADEQUATE, RBC Morphology N CHROM, Anisocytosis 2+ 12/15/20 16:00: Sodium 137, Potassium 4.3, Chloride 95 L, Carbon Dioxide 37.0 H, Anion Gap 5, BUN 9, Creatinine 1.77 H, Estim Creat Clear Calc 26.56, Est GFR (MDRD) Af Amer 48 L, Est GFR (MDRD) Non-Af 40 L, BUN/Creatinine Ratio 5.1 L, Glucose 114 H, Calcium 8.6, Troponin I < 0.015 12/15/20 21:00: Troponin I < 0.015 12/15/20 21:34: POC Glucose 225 H 12/16/20 00:20: Troponin I < 0.015 12/16/20 05:32: WBC 6.4, RBC 2.21 L, Hgb 7.1 L, Hct 23.5 L, MCV 106.3 H, MCH 32.1 H, MCHC 30.2 L, RDW Std Deviation 72.0 H, RDW Coeff of Mihaela 18.5 H, Plt Count 164, MPV 9.1, Immature Gran % (Auto) 0.300, Neut % (Auto) 66.2, Lymph % (Auto) 19.1, Stevens % (Auto) 10.8 H, Eos % (Auto) 3.0, Baso % (Auto) 0.6, Absolute Neuts (auto) 4.2, Absolute Lymphs (auto) 1.22, Nucleated RBC % 0, Differential Comment SCANNED, Polychromasia RARE, Anisocytosis 2+, Microcytosis 1+, Macrocytosis 1+, Schistocytes RARE 12/16/20 05:32: PT 13.9, INR 1.1 12/16/20 05:32: Hemoglobin A1c < 3.8 L 12/16/20 05:32: Sodium 138, Potassium 4.7, Chloride 100, Carbon Dioxide 34.0 H, Anion Gap 4 L, BUN 19 H, Creatinine 2.85 H, Estim Creat Clear Calc 16.07, Est GFR (MDRD) Af Amer 28 L, Est GFR (MDRD) Non-Af 23 L, BUN/Creatinine Ratio 6.7 L, Glucose 83, Calcium 8.1 L, TIBC 184 L, Ferritin 1221 H, Total Bilirubin 0.40, AST 11 L, ALT 12 L, Alkaline Phosphatase 49, Total Protein 5.0 L, Albumin 2.4 L, Globulin 2.6, Albumin/Globulin Ratio 0.9 12/16/20 05:32: Iron 107 12/16/20 05:50: Urine Color Yellow, Urine Clarity Clear, Urine pH 8.0, Ur Specific [place] 1.010, Urine Protein 500 H, Urine Glucose (UA) 100 H, Urine Ketones Negative, Urine Occult Blood Negative, Urine Nitrite Negative, Urine Bilirubin Negative, Urine Urobilinogen Normal, Ur Leukocyte Esterase Negative, Urine RBC 0 SEEN, Urine WBC 0 SEEN, Ur Squamous Epith Cells 0 SEEN, Urine Bacteria 0 SEEN, Urine Mucus 0 SEEN 12/16/20 06:41: POC Glucose 94 12/16/20 12:03: POC Glucose 200 H Current Medications Acetaminophen (Acetaminophen 325 Mg Tablet) 650 mg PO Q6H PRN PRN PRN Reason: Pain Score 1-10/Temp > 100.7 F Atorvastatin Calcium (Atorvastatin Calcium 10 Mg Tablet) 10 mg PO QHS [facility] Last Admin: 12/15/20 21:38 Dose: 10 mg Documented by: Calcium Acetate (Calcium Acetate 667 Mg Capsule) 1,334 mg PO TIDCM [facility] Last Admin: 12/16/20 12:08 Dose: 1,334 mg Documented by: Ferrous Sulfate (Ferrous Sulfate 325 Mg Tablet) 650 mg PO BIDCM [facility] Last Admin: 12/16/20 08:56 Dose: 650 mg Documented by: Sodium Chloride () 250 mls @ 15 mls/hr IV .[id number] PRN PRN Reason: Saline Flush Sodium Chloride () 250 mls @ 15 mls/hr IV .[id number] PRN PRN Reason: Additional IVPB Infusion Sodium Chloride () 500 mls @ 999 mls/hr IV .Q31M ONE Stop: 12/16/20 16:19 Last Admin: 12/16/20 16:13 Dose: 999 mls/hr Documented by: Insulin Human Lispro (Insulin Lispro 100 Unit/Ml Insuln.Pen) 0 unit SC TIDAC [facility]; Protocol Last Admin: 12/16/20 12:07 Dose: 2 u Documented by: Multivit/Ca Carb/B Cmplx/FA/Prenat (Folic Acid/Vitamin B Comp W-C 1 Capsule) 1 capsule PO DAILY [facility] Last Admin: 12/16/20 08:57 Dose: 1 capsule Documented by: Mycophenolate Mofetil (Mycophenolate Mofetil 250 Mg Capsule) 500 mg PO BID [facility] Last Admin: 12/16/20 08:57 Dose: 500 mg Documented by: Ondansetron HCl (Ondansetron 4 Mg/2 Ml Vial) 4 mg IV Q8H PRN PRN PRN Reason: NAUSEA/VOMITING Sodium Chloride (0.9% Saline Lock 10 Ml Syringe) 10 - 40 ml IV UD PRN PRN Reason: SALINE FLUSH STROKE Vital Signs/Narrative: Vital Signs Temp Pulse Pulse Pulse Pulse Resp BP 12/16/20 13:40 98.6 F 84 18 154/53 H 12/16/20 13:39 84 84 80 BP BP BP Pulse Ox 12/16/20 13:40 98 12/16/20 13:39 175/57 H 154/53 H 148/74 H Medical Necessity - Tobacco Use Smoking Status: Current every day smoker Tobacco Use: Cigarettes Assessment/Plan All Active Problems (Last Reviewed 12/15/20 @ 18:[address] Ramana Cantrell, DO) Diverticulitis of intestine with abscess (Resolved) Near syncope (Acute) Near syncope (Acute) 1. Near syncope secondary to orthostatic hypotension Patient remains orthostatic, off blood pressure medications Will give IV fluid boluses Continue to monitor 2. Anemia, likely acute on chronic, hemoglobin reportedly 9.0, 2 days ago Hb this morning 7.1, stool for occult blood has been negative, Will transfuse 1 unit of packed RBC Repeat blood work in am Will start on PO PPI twice daily, will follow up with GI in the outpatient 3. ESRD on hemodialysis?Saturday??Saturday 4. Type II DM, not on any hypoglycemic Check to monitor 5. Malnutrition, moderate protein calorie, on supplements 6. DVT prophylaxis?SCDs Inpatient E&M: 19792 Subs Hosp L2
--- NOTE | 2020-12-16 16:17 | DCINST_ITS ---
- Discharge Diagnoses Current Active Problems: Current Active and Chronic Problems (Last Reviewed 12/15/20 @ 18:[address] Ramana Cantrell DO) Near syncope (Acute) Near syncope (Acute) Chronic renal failure, stage 5 (Chronic) History of vein stripping (Chronic) History of surgery on left wrist (Chronic) History of cataract extraction (Chronic) History of colectomy (Chronic) History of colonoscopy (Chronic ~06/2020) Brain aneurysm (Chronic) History of GI bleed (Chronic) Atrial fibrillation (Chronic) Hepatitis C (Chronic) CVA (cerebral vascular accident) (Chronic) COPD (chronic obstructive pulmonary disease) (Chronic) Asthma (Chronic) Sleep apnea (Chronic) MOODY (acute kidney injury) (Chronic) Anemia (Chronic) Colon polyps (Chronic) Tobacco use disorder (Chronic) PVD (peripheral vascular disease) (Chronic) Type II diabetes mellitus, uncontrolled (Chronic) Benign essential HTN (Chronic) Reason(s) for Visit for Discharge Instructions: Near syncope You will use the following diet at home:: Cardiac Your food should be the consistency of: Regular Your liquids should be the consistency of: Regular/Thin Discharge Activity: Return to Normal Activity Additional Instructions: Continue with dialysis as scheduled. Do not take any of your BP medications. Allergies/Adverse Reactions: Allergies varenicline tartrate [From Chantix] Allergy (Verified 12/15/20 19:54) makes me weird, hallucinations Medications to take at Discharge Atorvastatin Calcium 10 mg PO QHS 05/05/19 Ferrous Sulfate 650 mg PO BID 05/05/19 Mycophenolate Mofetil 500 mg PO BID 09/06/20 calcium acetate(phosphat bind) 667 mg capsule 1,334 mg PO TIDCM 11/03/20 ergocalciferol (vitamin D2) 1,250 mcg (50,000 unit) capsule 1,250 mcg PO QMONTH 11/03/20 Vit B Comp No.3/Folic/C/Biotin [Nephro-Lola Rx Tablet] 1 tab PO DAILY 12/15/20 Primary Care Physician: Charanjit Nelson III, MD [Primary Care Provider] - Please follow up with your Primary Care Physician in: within 1-2 weeks Test Results: Test results from this visit will be discussed in further detail at your follow- up appointment, if applicable. Please Follow Up With: Katie Hamilton DO When: as scheduled in dialysis Proposed Discharge Date: 12/17/20
[2020-12-16 16:41] LABS: Bedside Glucose 92 mg/dL (70-110)
[2020-12-16] MEDS: Pantoprazole Sodium 40 MG Tablet PO (21:50)
[2020-12-16] MEDS: Atorvastatin Calcium 10 MG Tablet PO (21:50)
[2020-12-16 23:16] LABS: Bedside Glucose 151 mg/dL (70-110)
[2020-12-17] VITALS (11 sets, daily range): BP systolic 148–202; BP diastolic 70–83; PULSE 71–89; RESP 16–18; TEMP 36.8–36.9; O2SAT 96–97
--- NOTE | 2020-12-17 00:15 | PCM.PN.BLA ---
Progress Note Patient is severely elevated blood pressure. Apparently was on home amlodipine but stopped for permissive hypertension. Will start patient on amlodipine 5 mg p.o. daily first dose now. Hydralazine as needed for systolic blood pressure of more than 180 ordered. STROKE Vital Signs/Narrative: Vital Signs Temp Pulse Resp BP Pulse Ox 12/16/20 23:41 98.1 F 73 18 200/78 H 96 12/16/20 22:41 98.1 F 73 18 198/81 H 96 12/16/20 21:41 98.8 F 73 18 186/74 H 98 12/16/20 21:26 98.6 F 71 18 194/76 H 98
[2020-12-17] MEDS: amLODIPine 5 MG Tablet PO (00:58)
[2020-12-17] MEDS: hydrALAZINE 20 MG/ML Vial 5 MG IV (01:01)
[2020-12-17] MEDS: hydrALAZINE 20 MG/ML Vial 10 MG IV (04:11)
[2020-12-17 06:45] LABS: Bedside Glucose 98 mg/dL (70-110)
--- NOTE | 2020-12-17 06:57 | PCM.CONS.GEN ---
Problem List (1) Anemia Status: Chronic Qualifiers: Anemia type: due to chronic kidney disease Reason for Consult Date of Consultation: 12/17/20 History of Present Illness: The patient is a 80 year old M patient was here with syncope and was found to be anemic. The patient had 2 fecal occult blood test which were both negative. He is not having any abdominal pain and has not noted any gross blood in his stool. Past Medical History Past Medical History (Chronic Problems): Chronic Problems (Last Reviewed 12/15/20 @ 18:[address] Ramana Cantrell DO) Chronic renal failure, stage 5 (Chronic) History of vein stripping (Chronic) History of surgery on left wrist (Chronic) History of cataract extraction (Chronic) History of colectomy (Chronic) History of colonoscopy (Chronic ~06/2020) Brain aneurysm (Chronic) History of GI bleed (Chronic) Atrial fibrillation (Chronic) Hepatitis C (Chronic) CVA (cerebral vascular accident) (Chronic) COPD (chronic obstructive pulmonary disease) (Chronic) Asthma (Chronic) Sleep apnea (Chronic) MOODY (acute kidney injury) (Chronic) Anemia (Chronic) Colon polyps (Chronic) Tobacco use disorder (Chronic) PVD (peripheral vascular disease) (Chronic) Type II diabetes mellitus, uncontrolled (Chronic) Benign essential HTN (Chronic) Medical History: Medical History (Last Reviewed 12/15/20 @ 18:[address] Ramana Cantrell DO) Chronic renal failure, stage 5 (Chronic) N18.5 Brain aneurysm (Chronic) I67.1 History of GI bleed (Chronic) Z87.19 Atrial fibrillation (Chronic) I48.91 Hepatitis C (Chronic) B19.20 CVA (cerebral vascular accident) (Chronic) I63.9 COPD (chronic obstructive pulmonary disease) (Chronic) J44.9 Asthma (Chronic) J45.909 Sleep apnea (Chronic) G47.30 MOODY (acute kidney injury) (Chronic) N17.9 Anemia (Chronic) D64.9 Colon polyps (Chronic) Tobacco use disorder (Chronic) F17.200 PVD (peripheral vascular disease) (Chronic) I73.9 Type II diabetes mellitus, uncontrolled (Chronic) E11.65 Benign essential HTN (Chronic) I10 Allergies varenicline tartrate [From Chantix] Allergy (Verified 12/15/20 19:54) makes me weird, hallucinations Home Medications: Ambulatory Orders Medication Instructions Recorded Atorvastatin Calcium 10 mg PO QHS 05/05/19 Ferrous Sulfate 650 mg PO BID 05/05/19 Mycophenolate Mofetil 500 mg PO BID 09/06/20 calcium acetate(phosphat bind) 667 1,334 mg PO TIDCM 11/03/20 mg capsule ergocalciferol (vitamin D2) 1,250 1,250 mcg PO QMONTH 11/03/20 mcg (50,000 unit) capsule Vit B Comp No.3/Folic/C/Biotin 1 tab PO DAILY 12/15/20 [Nephro-Lola Rx Tablet] Surgical History: Surgical History (Last Reviewed 12/15/20 @ 18:[address] Ramana Cantrell DO) History of vein stripping (Chronic) Z98.890 History of surgery on left wrist (Chronic) Z98.890 History of cataract extraction (Chronic) Z98.49 History of colectomy (Chronic) Z90.49 History of colonoscopy (Chronic) Onset Date: ~06/2020 Z98.890 history insertion dialysis catheter Onset Date: ~11/04/20 Surgical History: - - wrist surgery in 1990 veing stripping, pad with stents 3 stents in left leg, abcess removed from his back, colon resection Psychiatric History: No pertinent psych hx Smoking Status: Current every day smoker Tobacco Use: Cigarettes - *Family History Maternal Family History: Family History (Last Reviewed 12/15/20 @ 18:[address] Ramana Cantrell DO) Mother CVA (cerebral vascular accident) Diabetes Hypertension Father Colon cancer Diabetes Brother Diabetes History Items: - Paternal Family History: Family History (Last Reviewed 12/15/20 @ 18:[address] Ramana Cantrell DO) Mother CVA (cerebral vascular accident) Diabetes Hypertension Father Colon cancer Diabetes Brother Diabetes History Items: - Review of Systems Constitutional: Reports: Weakness. Denies: Anorexia, Fever HEENT: Denies: Difficulty Swallowing Respiratory: Denies: Cough, Shortness of Breath Gastrointestinal: Denies: Abdominal Pain, Hematemesis, Hematochezia, Nausea, Melena, Vomiting Genitourinary: Denies: Hematuria Skin: Denies: Jaundice Neurological: Denies: Balance problems Hematologic/ Lymphatic: Reports: Anemia Patient Problems: Active and Suspected Problems (Last Reviewed 12/15/20 @ 18:[address] Ramana Cantrell, DO) Near syncope (Acute) Near syncope (Acute) - Physical Exam Vitals/I&O's: Vital Signs Temp Pulse Resp BP Pulse Ox 98.3 F 74 16 199/83 H 97 12/17/20 03:58 12/17/20 04:11 12/17/20 03:58 12/17/20 04:11 12/17/20 03:58 Oxygen Delivery Method Room Air Weight: 117 lb 4.575 oz Body Mass Index (BMI) 17.8 Finger Stick Blood Glucose 146 Orthostatic Vital Signs Start: 12/15/20 20:17 Freq: 0700 Status: Active Protocol: Activity Type Activity Date Activity User E-Sign Co-Sign Detail Recorded Client Recorded Date Recorded By Document 12/16/20 13:39 DEBORAH [id number] 12/16/20 13:40 DEBORAH 12/16/20 13:39 Orthostatic Vitals Standing -Blood Pressure (90/60-120/80) 148/74 H -Extremity Use Right Arm -Pulse Rate (60-100) 80 Sitting -Blood Pressure (90/60-120/80) 154/53 H -Extremity Use Right Arm -Pulse Rate (60-100) 84 Lying -Blood Pressure (90/60-120/80) 175/57 H -Extremity Use Right Arm -Pulse Rate (60-100) 84 Intake and Output for Last 24 Hours 12/15/20 12/16/20 12/17/20 23:59 23:59 23:59 Intake Total 740 / 740 1900 / 1900 Output Total 450 / 450 0 / 0 Balance 740 / 740 1450 / 1450 0 / 0 General: Alert, Oriented x3 Neck: No JVD Lungs: Normal air movement Cardiovascular: Regular rate, Regular Rhythm Abdomen: Soft, Non Tender, Non-Distended Microbiology Past 72 Hours 12/16/20 15:00 Stool Stool Occult Blood (MARYANN) - Final 12/15/20 18:00 Stool Stool Occult Blood (MARYANN) - Final Laboratory Results 12/16/20 05:32: Hemoglobin A1c < 3.8 L 12/16/20 05:32: Sodium 138, Potassium 4.7, Chloride 100, Carbon Dioxide 34.0 H, Anion Gap 4 L, BUN 19 H, Creatinine 2.85 H, Estim Creat Clear Calc 16.07, Est GFR (MDRD) Af Amer 28 L, Est GFR (MDRD) Non-Af 23 L, BUN/Creatinine Ratio 6.7 L, Glucose 83, Calcium 8.1 L, TIBC 184 L, Ferritin 1221 H, Total Bilirubin 0.40, AST 11 L, ALT 12 L, Alkaline Phosphatase 49, Total Protein 5.0 L, Albumin 2.4 L, Globulin 2.6, Albumin/Globulin Ratio 0.9 12/16/20 05:32: Iron 107 12/16/20 12:03: POC Glucose 200 H 12/16/20 16:32: POC Glucose 92 12/16/20 16:53: Blood Type A POSITIVE, Antibody Screen NEGATIVE, Crossmatch See Detail 12/16/20 21:47: POC Glucose 151 H 12/17/20 06:42: POC Glucose 98 Current Medications Acetaminophen (Acetaminophen 325 Mg Tablet) 650 mg PO Q6H PRN PRN PRN Reason: Pain Score 1-10/Temp > 100.7 F Amlodipine Besylate (Amlodipine 5 Mg Tablet) 5 mg PO DAILY [facility] Last Admin: 12/17/20 00:58 Dose: 5 mg Documented by: Atorvastatin Calcium (Atorvastatin Calcium 10 Mg Tablet) 10 mg PO QHS [facility] Last Admin: 12/16/20 21:50 Dose: 10 mg Documented by: Calcium Acetate (Calcium Acetate 667 Mg Capsule) 1,334 mg PO TIDCM [facility] Last Admin: 12/16/20 17:11 Dose: 1,334 mg Documented by: Ferrous Sulfate (Ferrous Sulfate 325 Mg Tablet) 650 mg PO BIDCM [facility] Last Admin: 12/16/20 17:11 Dose: 650 mg Documented by: Hydralazine HCl (Hydralazine 20 Mg/Ml Vial) 10 mg IV Q4H PRN PRN PRN Reason: BLOOD PRESSURE ELEVATION Last Admin: 12/17/20 04:11 Dose: 10 mg Documented by: Sodium Chloride () 250 mls @ 15 mls/hr IV .[id number] PRN PRN Reason: Saline Flush Sodium Chloride () 250 mls @ 15 mls/hr IV .[id number] PRN PRN Reason: Additional IVPB Infusion Insulin Human Lispro (Insulin Lispro 100 Unit/Ml [facility]ul[facility].Pen) [facility]; Protocol Last Admin: 12/17/20 06:44 Dose: Not Given Documented by: Multivit/Ca Carb/B Cmplx/FA/Prenat (Folic Acid/Vitamin B Comp W-C 1 Capsule) 1 capsule PO DAILY [facility] Last Admin: 12/16/20 08:57 Dose: 1 capsule Documented by: Mycophenolate Mofetil (Mycophenolate Mofetil 250 Mg Capsule) 500 mg PO BID [facility] Last Admin: 12/16/20 21:50 Dose: 500 mg Documented by: Ondansetron HCl (Ondansetron 4 Mg/2 Ml Vial) 4 mg IV Q8H PRN PRN PRN Reason: NAUSEA/VOMITING Pantoprazole Sodium (Pantoprazole Sodium 40 Mg Tablet) 40 mg PO BID [facility] Last Admin: 12/16/20 21:50 Dose: 40 mg Documented by: Sodium Chloride (0.9% Saline Lock 10 Ml Syringe) 10 - 40 ml IV UD PRN PRN Reason: SALINE FLUSH Assessment/Plan All Active Problems (Last Reviewed 12/15/20 @ 18:[address] Ramana Cantrell, DO) Diverticulitis of intestine with abscess (Resolved) Near syncope (Acute) Near syncope (Acute) 80-year-old male with anemia 1. The patient's anemia is most likely due to his chronic kidney disease. The patient was recently seen by Dr. Rodríguez who performed an EGD. The patient would like to follow-up with Dr. Rodríguez as an outpatient for colonoscopy. I believe this is reasonable and the patient may follow-up with Dr. Rodríguez after discharge. Jone Castillo MD Pager: [facility] [address] [place] [address], [address] [place] [address] Office:
[2020-12-17] MEDS: Calcium Acetate 667 MG Capsule 1334 MG PO (08:09)
[2020-12-17] MEDS: Folic Acid/Vitamin B Comp W-C 1 Capsule 1 CAP PO (08:09)
[2020-12-17] MEDS: amLODIPine 10 MG Tablet PO (08:09)
[2020-12-17] MEDS: 0.9% Saline Lock 10 ML Syringe IV (08:09)
[2020-12-17] MEDS: Pantoprazole Sodium 40 MG Tablet PO (08:09)
[2020-12-17] MEDS: Ferrous Sulfate 325 MG Tablet 650 MG PO (08:09)
--- NOTE | 2020-12-17 08:09 | PCM.DC.SUM ---
Discharge Date and Diagnosis - Problem List Patient Problems: Active and Suspected Problems (Last Reviewed 12/15/20 @ 18:[address] Ramana Cantrell DO) Near syncope (Acute) Near syncope (Acute) Date of Admission: 12/15/20 Date of Discharge: 12/17/20 - Primary Discharge Diagnosis Acute Problems: Active Problems (Last Reviewed 12/15/20 @ 18:[address] Ramana Cantrell DO) Near syncope (Acute) Orthostatic hypotension Anemia, acute on chronic, unclear etiology Suspected acute GI bleed - Secondary Discharge Diagnosis Chronic Problems: Chronic Problems (Last Reviewed 12/15/20 @ 18:[address] Ramana Cantrell DO) Chronic renal failure, stage 5 (Chronic) History of vein stripping (Chronic) History of surgery on left wrist (Chronic) History of cataract extraction (Chronic) History of colectomy (Chronic) History of colonoscopy (Chronic ~06/2020) Brain aneurysm (Chronic) History of GI bleed (Chronic) Atrial fibrillation (Chronic) Hepatitis C (Chronic) CVA (cerebral vascular accident) (Chronic) COPD (chronic obstructive pulmonary disease) (Chronic) Asthma (Chronic) Sleep apnea (Chronic) MOODY (acute kidney injury) (Chronic) Anemia (Chronic) Colon polyps (Chronic) Tobacco use disorder (Chronic) PVD (peripheral vascular disease) (Chronic) Type II diabetes mellitus, uncontrolled (Chronic) Benign essential HTN (Chronic) Hospital Course and Treatment Imaging Results: Clinical Impression(s) from Imaging Studies Chest X-Ray 12/15/20 16:54 IMPRESSION: No active disease. Electronically Signed: Uvaldo Kim MD at 17:04 EST Tel , Service support , None Summary of Care Provided: The patient is a 80 year old M with past medical history of ESRD on hemodialysis, chronic anemia, who presents with a near syncopal episode. He had dialysis on the day of admission and was on his way home with his daughter, when he attempted to get up and nearly passed out. He was confused for short period of time. No seizure-like activity was noted. Patient was brought to the emergency department and found to have orthostatic hypotension. Patient admits to dark stools; he is on oral iron. His admitting hemoglobin was 7.5. Previous hemoglobin in the dialysis center 2 days prior to admission was reportedly 9.0. Patient's repeat hemoglobin was 7.5. His stool for FOBT x2 was negative. General surgery was consulted, outpatient colonoscopy recommended. Patient received 1 unit of packed RBC prior to discharge. His repeat hemoglobin was 9.7. He received IV fluid boluses orthostatic hypotension. His home blood pressure medications were initially held. Overnight, his blood pressures were elevated and amlodipine was resumed. Amlodipine was increased to [address] Hamilton and updated patient's daughter, Jovita, patient will have labetalol 100 mg p.o. twice daily for when systolic blood pressures were more than 180. He will follow-up with Dr. Hamilton in also with Dr. Nelson in the outpatient. Patient Problems: Active and Suspected Problems (Last Reviewed 12/15/20 @ 18:[address] Ramana Cantrell, DO) Near syncope (Acute) Near syncope (Acute) Subjective: On the day of discharge, patient was seen and examined. He denied any new complaints. Objective: Physical exam: General: Alert, Cooperative, No apparent distress, Well developed, Well nourished HEENT: Atraumatic, Normocephalic Oral: Moist Mucosa, No Gingival or Mucosal Lesions/ Ulcerations Neck: No Nodes, Thyroid Normal Size and Texture Lungs: Clear to auscultation, Normal air movement, No rhonchi, No wheeze, No rales Cardiovascular: Regular rate, Regular Rhythm, Normal S1, Normal S2, No murmurs Abdomen: Bowel Sounds Present, Soft, Non Tender, Non-Distended, No Hepato-splenomegaly Extremities: No edema, No Calf Tenderness, - - Fistula in the left upper extremity with a palpable and audible thrill. No evidence of any cellulitis. Skin: No rashes, No breakdown Musculoskeletal: No Tenderness to Palpation of Joints or Extremities, Cachexia, Muscle Wasting Neurological: Cranial nerves II-XII grossly intact, Motor Exam 5/5 strength throughout Psych/Mental Status: Normal Affect, Appropriate - Physical Exam Vitals/I&O's: Vital Signs Temp Pulse Resp BP Pulse Ox 98.4 F 77 18 170/77 H 97 12/17/20 08:02 12/17/20 08:02 12/17/20 08:02 12/17/20 08:02 12/17/20 08:02 Oxygen Delivery Method Room Air Weight: 53.2 kg Body Mass Index (BMI) 17.8 Finger Stick Blood Glucose 146 Orthostatic Vital Signs Start: 12/15/20 20:17 Freq: 0700 Status: Active Protocol: Activity Type Activity Date Activity User E-Sign Co-Sign Detail Recorded Client Recorded Date Recorded By Document 12/17/20 07:00 bm [id number] 12/17/20 07:48 bm 12/17/20 07:00 Orthostatic Vitals Standing -Blood Pressure (90/60-120/80) 150/70 H -Extremity Use Right Arm -Pulse Rate (60-100) 89 Sitting -Blood Pressure (90/60-120/80) 148/72 H -Extremity Use Right Arm -Pulse Rate (60-100) 82 Lying -Blood Pressure (90/60-120/80) 170/76 H -Extremity Use Right Arm -Pulse Rate (60-100) 77 Intake and Output for Last 24 Hours 12/15/20 12/16/20 12/17/20 23:59 23:59 23:59 Intake Total 740 / 740 1900 / 1900 100 / 100 Output Total 450 / 450 0 / 0 Balance 740 / 740 1450 / 1450 100 / 100 Microbiology Past 72 Hours 12/16/20 15:00 Stool Stool Occult Blood (MARYANN) - Final 12/15/20 18:00 Stool Stool Occult Blood (MARYANN) - Final Laboratory Results 12/16/20 05:32: Hemoglobin A1c < 3.8 L 12/16/20 05:32: Sodium 138, Potassium 4.7, Chloride 100, Carbon Dioxide 34.0 H, Anion Gap 4 L, BUN 19 H, Creatinine 2.85 H, Estim Creat Clear Calc 16.07, Est GFR (MDRD) Af Amer 28 L, Est GFR (MDRD) Non-Af 23 L, BUN/Creatinine Ratio 6.7 L, Glucose 83, Calcium 8.1 L, TIBC 184 L, Ferritin 1221 H, Total Bilirubin 0.40, AST 11 L, ALT 12 L, Alkaline Phosphatase 49, Total Protein 5.0 L, Albumin 2.4 L, Globulin 2.6, Albumin/Globulin Ratio 0.9 12/16/20 05:32: Iron 107 12/16/20 12:03: POC Glucose 200 H 12/16/20 16:32: POC Glucose 92 12/16/20 16:53: Blood Type A POSITIVE, Antibody Screen NEGATIVE, Crossmatch See Detail 12/16/20 21:47: POC Glucose 151 H 12/17/20 06:42: POC Glucose 98 Current Medications Acetaminophen (Acetaminophen 325 Mg Tablet) 650 mg PO Q6H PRN PRN PRN Reason: Pain Score 1-10/Temp > 100.7 F Amlodipine Besylate (Amlodipine 10 Mg Tablet) 10 mg PO DAILY [facility] Atorvastatin Calcium (Atorvastatin Calcium 10 Mg Tablet) 10 mg PO QHS [facility] Last Admin: 12/16/20 21:50 Dose: 10 mg Documented by: Calcium Acetate (Calcium Acetate 667 Mg Capsule) 1,334 mg PO TIDCM [facility] Last Admin: 12/16/20 17:11 Dose: 1,334 mg Documented by: Ferrous Sulfate (Ferrous Sulfate 325 Mg Tablet) 650 mg PO BIDCM [facility] Last Admin: 12/16/20 17:11 Dose: 650 mg Documented by: Hydralazine HCl (Hydralazine 20 Mg/Ml Vial) 10 mg IV Q4H PRN PRN PRN Reason: BLOOD PRESSURE ELEVATION Last Admin: 12/17/20 04:11 Dose: 10 mg Documented by: Sodium Chloride () 250 mls @ 15 mls/hr IV .[id number] PRN PRN Reason: Saline Flush Sodium Chloride () 250 mls @ 15 mls/hr IV .[id number] PRN PRN Reason: Additional IVPB Infusion Insulin Human Lispro (Insulin Lispro 100 Unit/Ml Insuln.Pen) [facility]; Protocol Last Admin: 12/17/20 06:44 Dose: Not Given Documented by: Multivit/Ca Carb/B Cmplx/FA/Prenat (Folic Acid/Vitamin B Comp W-C 1 Capsule) 1 capsule PO DAILY [facility] Last Admin: 12/16/20 08:57 Dose: 1 capsule Documented by: Mycophenolate Mofetil (Mycophenolate Mofetil 250 Mg Capsule) 500 mg PO BID [facility] Last Admin: 12/16/20 21:50 Dose: 500 mg Documented by: Ondansetron HCl (Ondansetron 4 Mg/2 Ml Vial) 4 mg IV Q8H PRN PRN PRN Reason: NAUSEA/VOMITING Pantoprazole Sodium (Pantoprazole Sodium 40 Mg Tablet) 40 mg PO BID [facility] Last Admin: 12/16/20 21:50 Dose: 40 mg Documented by: Sodium Chloride (0.9% Saline Lock 10 Ml Syringe) 10 - 40 ml IV UD PRN PRN Reason: SALINE FLUSH Discharge Diet: Renal Diet Discharge Activity: Return to Normal Activity Home Medications: Medications to take at Discharge Atorvastatin Calcium 10 mg PO QHS 05/05/19 Ferrous Sulfate 650 mg PO BID 05/05/19 Mycophenolate Mofetil 500 mg PO BID 09/06/20 calcium acetate(phosphat bind) 667 mg capsule 1,334 mg PO TIDCM 11/03/20 ergocalciferol (vitamin D2) 1,250 mcg (50,000 unit) capsule 1,250 mcg PO QMONTH 11/03/20 Vit B Comp No.3/Folic/C/Biotin [Nephro-Lola Rx Tablet] 1 tab PO DAILY 12/15/20 Labetalol [Trandate (Beta Chema)] 100 mg PO BID 30 Days #60 tab 12/17/20 Pantoprazole Sodium [Protonix] 40 mg PO BID 30 Days #60 tab 12/17/20 Following Prescriptions Were Given to Patient: Pantoprazole Sodium [Protonix] 40 mg PO BID 30 Days #60 tab Transmission Status: Received by [id number] Labetalol [Trandate (Beta Chema)] 100 mg PO BID 30 Days #60 tab Transmission Status: Received by [id number] Primary Care Physician: Charanjit Nelson III, MD [Primary Care Provider] - Please follow up with your Primary Care Physician in: within 1-2 weeks Please Follow Up With: aKtie Hamilton DO When: as scheduled in dialysis Disposition: Home Minutes spent on discharge:: 40 Patient Condition:: Stable Medical Necessity - Tobacco Use Smoking Status: Current every day smoker Tobacco Use: Cigarettes Meaningful Use Info Meaningful Use Diagnoses (Choose all that apply): None applicable Inpatient E&M: 54658 Disch Hosp
[2020-12-17 08:46] LABS: Hemoglobin 9.7 g/dL (13.0-16.5)
--- NOTE | 2020-12-17 10:57 | NURSING ---
Patient discharged home via wheelchair. Daughter at side. Discharge teaching complete. Daughter and patient verbalized understanding. Vital signs stable.
== END 2020-12-17 07:27 | disposition home or self-care (01) ==
LOC: ED 18:11 → PCU 18:25
PROVIDERS: Emergency Provider Emergency Medicine; PCP Family Medicine; Visit Provider Internal Medicine
DX: I95.1 Orthostatic hypotension (principal); D63.1 Anemia in chronic kidney disease; J44.9 Chronic obstructive pulmonary disease, unspecified; I48.20 Chronic atrial fibrillation, unspecified; B18.2 Chronic viral hepatitis C; I12.0 Hypertensive chronic kidney disease with stage 5 chronic kidney disease or end stage renal disease; E11.22 Type 2 diabetes mellitus with diabetic chronic kidney disease; N18.6 End stage renal disease; N17.9 Acute kidney failure, unspecified; E11.51 Type 2 diabetes mellitus with diabetic peripheral angiopathy without gangrene; G47.30 Sleep apnea, unspecified; F17.210 Nicotine dependence, cigarettes, uncomplicated; E44.0 Moderate protein-calorie malnutrition; Z79.899 Other long term (current) drug therapy; Z86.73 Personal history of transient ischemic attack (TIA), and cerebral infarction without residual deficits; Z99.2 Dependence on renal dialysis; Z68.1 Body mass index [BMI] 19.9 or less, adult
CPT/HCPCS: 36415; 36430; 71045; 80048; 80053; 81001; 82274; 82728; 82962; 83036; 83540; 83550; 84484; 85014; 85018; 85025; 85610; 86850; 86900; 86901; 86920; 86922; 93005; 96361; 96374; 96376; 97161; 97165; 97802; 99218; 99285; 99406; J7040; P9016; A4216; G0378

== ENCOUNTER 2021-06-25 21:26 | Emergency (ER) | payer MEDICARE, SELFPAY ==
[2021-06-25 21:28] VITALS: BP 148/66; PULSE 64; RESP 16; TEMP 36.3; BMI 20.7
--- NOTE | 2021-06-25 21:48 | ED.RN ---
PT REQUESTS FOR DAUGHTER TO BE NOTIFIED THAT HE IS IN THE EMERGENCY DEPT. THIS RN CONTACTED HIS DAUGHTER WHO STATES SHE CANNOT COME IN DUE TO A SICK CHILD BUT WOULD STILL LIKE UPDATES THEY COME ON HER FATHERS STATUS
--- NOTE | 2021-06-25 22:38 | CT_ITS ---
STUDY: CT BRAIN WITHOUT CONTRAST REASON FOR EXAM: Male, 80 years old. Dizziness RADIATION DOSAGE (If Supplied By Facility): CTDIvol = ( 44.99 ) mGy, DLP = ( 829.85 ) mGycm TECHNIQUE: Transaxial CT imaging of the brain was performed without administration of intravenous contrast material. Individualized dose optimization techniques were used for this CT. COMPARISON: 06/01/2017 FINDINGS: Normal soft tissue structures. Normal calvarium. Normal size ventricles and extra-axial spaces for the patient''s age. There are areas of decreased attenuation within the white matter tracts of the supratentorial brain, consistent with microvascular disease changes. Normal basal ganglia and thalami. Normal brainstem. Normal cerebellum. There is no intracranial hemorrhage. There are no findings of an acute ischemic infarction. Normal visualized paranasal sinuses. Right ocular lens replacement. CT/Brain/Head without Contrast IMPRESSION: No intracranial acute abnormal finding. Electronically Signed: Shaheen Keys MD at 23:43 EDT Tel , Service support ,
--- NOTE | 2021-06-25 22:39 | EKG12_ITS ---
Test Reason : DYSRHYTHMIA Blood Pressure : / mmHG Vent. Rate : 059 BPM Atrial Rate : 059 BPM P-R Int : 220 ms QRS Dur : 098 ms QT Int : 444 ms P-R-T Axes : 053 004 040 degrees QTc Int : 439 ms Sinus bradycardia with 1st degree A-V block Otherwise normal ECG Confirmed by INGRID BERRIOS, ASPEN ([id number]), digital editor KAYKAY BRIONES ([id number]) on 06/26/2021 1:51:16 PM Referred By: DOUGLAS Confirmed By:ASPEN QUINTERO MD
--- NOTE | 2021-06-25 22:41 | EX.ED.DYSGE1 ---
HPI History of Present Illness Chief Complaint: Dizziness Narrative Narrative: Patient presents via EMS because of lightheaded and dizziness that began today at 11:00, almost 12 hours ago. He has past medical history of end-stage renal disease with dialysis on Saturday, Saturday, and Saturday. He completed all of his dialysis on Saturday evening, 2 days ago. He thinks his blood sugar may be high because as he is diabetic, he has felt this way previously when his blood sugars were elevated. However, he states that they took him off insulin in October and did not start him on any medications because there was no need for blood sugar control because he is on dialysis. He denies any chest pain or shortness of breath. He states his symptoms are more near syncopal than they are vertiginous. He had a headache earlier, but that has resolved. He denies any paresthesias. No other symptoms. He was concerned and called EMS because it happened again while he was at home, and he lives alone. [facility] Medical History MOODY (acute kidney injury) Anemia Asthma Atrial fibrillation Benign essential HTN Brain aneurysm Chronic renal failure, stage 5 Colon polyps COPD (chronic obstructive pulmonary disease) CVA (cerebral vascular accident) Hepatitis C History of GI bleed PVD (peripheral vascular disease) Sleep apnea Tobacco use disorder Type II diabetes mellitus, uncontrolled Home Medications atorvastatin 10 mg PO QHS 05/05/19 [History Last Taken 12/14/20] ferrous sulfate 650 mg PO BID 05/05/19 [History Last Taken 12/15/20] mycophenolate mofetil 500 mg PO BID 09/06/20 [History Last Taken 12/15/20] calcium acetate(phosphat bind) 667 mg capsule 1,334 mg PO TIDCM 11/03/20 [History Last Taken 12/15/20] ergocalciferol (vitamin D2) 1,250 mcg (50,000 unit) capsule 1,250 mcg PO QMONTH 11/03/20 [History Last Taken 06/14/21] vit B comp no.[id number]-L-biotin 1 tab PO DAILY 12/15/20 [History Last Taken 12/15/20] Allergy/AdvReac Type Severity Reaction Status Date / Time varenicline tartrate Allergy makes me Verified 06/25/21 21:30 [From Chantix] loyd oseguera Family History Mother CVA (cerebral vascular accident) Diabetes Hypertension Father Colon cancer Diabetes Brother Diabetes Surgical History history insertion dialysis catheter (~11/04/20) History of cataract extraction History of colectomy History of colonoscopy (~06/2020) History of surgery on left wrist History of vein stripping Social History Smoking Status: Current every day smoker tobacco type: cigarettes ROS ROS ED ROS Narrative Constitutional: No fever, no chills. HEENT: No sore throat. No neck pain. No loss of vision. No rhinorrhea. Cardiovascular: No chest pain. No palpitations. No pedal edema. Respiratory: No cough, no shortness of breath. Abdominal: No abdominal pain. No nausea. No vomiting. Genitourinary: No dysuria. No hematuria. Musculoskeletal: No myalgias. No arthralgias. Neurologic: No headaches currently. Positive dizziness, but not vertiginous. Positive lightheadedness. Skin: No rash. No change in color. Psychiatric: No depression. No anxiety. EXAM Physical Exam Narrative Exam Narrative: Afebrile. Vital signs noted. HEENT: Normocephalic. Atraumatic. PERRL, EOMI. Neck soft and supple. No point tenderness or step off. Cardiovascular: Regular rate and rhythm. No murmurs, rubs, or gallops appreciated. Respiratory: No tachypnea. Lungs clear to auscultation bilaterally. Gastrointestinal: Abdomen soft, nontender, with normoactive bowel sounds. No rebound or guarding. Neurological: Awake. Alert. Oriented x3. Nonfocal, nonlateralizing. Cerebellar functioning normal as tested. NIH stroke scale 0. Skin: No rash. Normal color. No pallor. Musculoskeletal: No pedal edema. Full range of motion extremities. Positive fistula left upper extremity with palpable thrill. Const Vital Signs: 06/25/21 21:28 06/25/21 22:48 06/25/21 23:40 Temperature 97.4 F L Temperature Source Temporal Pulse Rate 64 66 Pulse Rate [Lying] 58 L Pulse Rate [Sitting] 63 Pulse Rate [Standing] 62 Respiratory Rate 16 16 Respiratory Effort Normal Respiratory Pattern Normal Blood Pressure 148/66 H 165/63 H Blood Pressure [Lying] 156/56 H Blood Pressure [Sitting] 155/58 H Blood Pressure [Standing] 151/52 H Blood Pressure Mean 93 97 Blood Pressure Mean [Lying] 89 Blood Pressure Mean [Sitting] 90 Blood Pressure Mean [Standing] 85 Pulse Ox 95 Oxygen Delivery Method Room Air Room Air 06/26/21 01:45 Temperature Temperature Source Pulse Rate 72 Pulse Rate [Lying] Pulse Rate [Sitting] Pulse Rate [Standing] Respiratory Rate 18 Respiratory Effort Respiratory Pattern Blood Pressure 159/65 H Blood Pressure [Lying] Blood Pressure [Sitting] Blood Pressure [Standing] Blood Pressure Mean 96 Blood Pressure Mean [Lying] Blood Pressure Mean [Sitting] Blood Pressure Mean [Standing] Pulse Ox Oxygen Delivery Method MDM MDM MDM Narrative Medical decision making narrative: Comprehensive work-up was pursued. His EKG demonstrates normal sinus rhythm at 59 bpm without ectopy or acute ST changes. Electrolyte panel shows potassium slightly elevated at 5.5, but this is better than previous at 6.0. He was given 15 g of Kayexalate. He will be dialyzed tomorrow. His high-sensitivity troponin is negative. Orthostatics are negative. He was able to stand without difficulty. CT the brain shows no acute process. His glucose is normal at 115/appropriately elevated. He has a normal anion gap of 10. At this point in time, I feel he can be discharged safely home to get dialysis in the afternoon. Disposition is discharged home in stable condition. Return instructions to the emergency department were reviewed. Lab Data Attestation: I reviewed the patient's lab results. Labs: Laboratory Results - last 24 hr 06/25/21 06/25/21 06/25/21 21:37 21:37 22:46 WBC 6.0 RBC 2.62 L Hgb 8.7 L Hct 27.7 L MCV 105.7 H MCH 33.2 H MCHC 31.4 L RDW Std Deviation 65.1 H RDW Coeff of Mihaela 16.6 H Plt Count 210 MPV 10.2 Immature Gran % (Auto) 0.500 Neut % (Auto) 62.2 Lymph % (Auto) 21.6 Glynn % (Auto) 13.0 H Eos % (Auto) 2.2 Baso % (Auto) 0.5 Absolute Neuts (auto) 3.8 Absolute Lymphs (auto) 1.30 Nucleated RBC % 0 Anisocytosis 1+ Sodium 133 L Potassium 5.5 H Chloride 94 L Carbon Dioxide 29.0 Anion Gap 10 BUN 48 H Creatinine 5.62 H Estim Creat Clear Calc 9.47 Est GFR (MDRD) Af Amer 13 L Est GFR (MDRD) Non-Af 11 L BUN/Creatinine Ratio 8.5 L Glucose 115 H Calcium 9.1 Total Bilirubin 0.50 AST 22 ALT 22 Alkaline Phosphatase 62 Troponin I High Sens 14 Total Protein 6.7 Albumin 3.5 Globulin 3.2 Albumin/Globulin Ratio 1.1 POC Glucose 120 H Radiography Diagnostic Testing: Radiology Impression Brain CT 06/25/21 22:38 IMPRESSION: No intracranial acute abnormal finding. Electronically Signed: Shaheen Keys MD at 23:43 EDT Tel , Service support , Discharge Plan Triage Chief Complaint: Dizziness ED Provider: Kyle Parry Dx/Rx/DC Orders Clinical Impression: Lightheadedness, Near syncope, Acute hyperkalemia Instructions: ED Hyperkalemia, ED Near-Fainting, Uncertain Cause Prescriptions: No Action ergocalciferol (vitamin D2) 1,250 mcg (50,000 unit) capsule 1,250 mcg PO QMONTH RF: 0 calcium acetate(phosphat bind) 667 mg capsule 1,334 mg PO TIDCM RF: 0 atorvastatin 10 MG tablet 10 mg PO QHS RF: 0 ferrous sulfate 325 MG tablet 650 mg PO BID RF: 0 mycophenolate mofetil 500 MG tablet 500 mg PO BID RF: 0 vit B comp no.7-samgd-I-biotin 1 EACH tablet 1 tab PO DAILY RF: 0 Primary Care Provider: Jr Desouza Referrals: Jr Desouza MD [Primary Care Provider] - 06/26/21 Disposition Disposition: Home, Self Care
[2021-06-25 22:48] VITALS: BP 151/52; BP 155/58; BP 156/56; PULSE 58; PULSE 62; PULSE 63
[2021-06-25 22:50] LABS: Bedside Glucose 120 mg/dL (70-110)
[2021-06-25 22:58] LABS: Absolute Neutrophil Count 3.8 X10^3/uL (2.0-7.7); Basophil# 0.03 X10^3/uL; Basophil% 0.5 % (0-1); Eosinophil# 0.13 X10^3/uL; Eosinophils% 2.2 % (0-5); Hematocrit 27.7 % (40-54); Hemoglobin 8.7 g/dL (13.0-16.5); Lymphocyte % 21.6 % (19-41); Mean Corp Hgb Conc 31.4 g/dL (32-36); Mean Corpuscular Hgb 33.2 pg (27.0-32.0); Mean Corpuscular Volume 105.7 fL (80-94); Mean Platelet Vol. 10.2 fl (6.2-12.0); Monocyte# 0.78 X10^3/uL; NRBC Flagged by Analyzer 0 % (0-5); Neutrophil # 3.75 X10^3/uL (2.7-7.7); Neutrophil % 62.2 % (47-70); POSITIVE MORPHOLOGY YES; Platelet Count 210 K/mm3 (150-450); RBC Distribution Width CV 16.6 % (11.6-14.6); RBC Distribution Width SD 65.1 fl (35.1-43.9); Red Blood Count 2.62 M/mm3 (4.6-6.2)
[2021-06-25 23:01] LABS: Differential Indicated SCAN CRITERIA MET
[2021-06-25 23:14] LABS: ALB/GLOB Ratio 1.1 RATIO (0.9-2.4); AST(SGOT) 22 U/L (15-37); Alanine Aminotransfer ALT/SGPT 22 U/L (16-61); Albumin, Serum 3.5 g/dL (3.2-5.0); Alkaline Phosphatase 62 U/L (45-117); Anion Gap 10 (5-15); BUN 48 mg/dL (7-18); BUN/Creat Ratio 8.5 RATIO (10-20); Calcium,Total 9.1 mg/dL (8.5-10.1); Chloride 94 mmol/L (98-107); Creatinine, Serum 5.62 mg/dL (0.70-1.30); EST Glomerular Filtration Rate 11 mL/min (>60); Est Glom Filt Rate - Afr Amer 13 mL/min (>60); Estimated Creatinine Clearance 9.47 ml/min; Globulin 3.2 g/dL (2.2-4.2); Glucose 115 mg/dL (74-106); Potassium 5.5 mmol/L (3.5-5.1); Protein, Total 6.7 g/dL (6.4-8.2); Sodium Level 133 mmol/L (136-145); Troponin-I HS 14 pg/mL (3.0-78.0)
[2021-06-25 23:40] VITALS: BP 165/63; PULSE 66; RESP 16; O2SAT 95
[2021-06-25 23:51] LABS: Anisocytosis 1+
[2021-06-26] MEDS: Sodium Polystyrene Sulfonate 15 GM/60 ML UDC PO (00:46)
[2021-06-26 01:45] VITALS: BP 159/65; PULSE 72; RESP 18; O2SAT 94
== END 2021-06-26 02:32 | disposition home or self-care (01) ==
PROVIDERS: Emergency Provider Emergency Medicine; PCP Family Medicine
DX: R55 Syncope and collapse (principal); E87.5 Hyperkalemia; E11.22 Type 2 diabetes mellitus with diabetic chronic kidney disease; I12.0 Hypertensive chronic kidney disease with stage 5 chronic kidney disease or end stage renal disease; N18.6 End stage renal disease; Z99.2 Dependence on renal dialysis; D64.9 Anemia, unspecified; E11.51 Type 2 diabetes mellitus with diabetic peripheral angiopathy without gangrene; I48.91 Unspecified atrial fibrillation; I67.1 Cerebral aneurysm, nonruptured; J44.9 Chronic obstructive pulmonary disease, unspecified; G47.30 Sleep apnea, unspecified; Z87.19 Personal history of other diseases of the digestive system; Z86.73 Personal history of transient ischemic attack (TIA), and cerebral infarction without residual deficits; Z79.4 Long term (current) use of insulin; Z79.899 Other long term (current) drug therapy; F17.210 Nicotine dependence, cigarettes, uncomplicated
CPT/HCPCS: 70450; 80053; 82962; 84484; 85025; 93005; 96360; 99285; J7030; A4216

== ENCOUNTER 2021-06-29 19:06 | Observation (INO) | payer MEDICARE, SELFPAY ==
[2021-06-29 19:07] VITALS: BP 150/113; PULSE 65; RESP 16; TEMP 36.4; O2SAT 99; BMI 19.0
--- NOTE | 2021-06-29 19:27 | EKG12_ITS ---
Test Reason : DIZZINESS Blood Pressure : / mmHG Vent. Rate : 062 BPM Atrial Rate : 062 BPM P-R Int : 192 ms QRS Dur : 098 ms QT Int : 440 ms P-R-T Axes : 047 015 031 degrees QTc Int : 446 ms Normal sinus rhythm Voltage criteria for left ventricular hypertrophy Abnormal ECG Confirmed by INGRID BERRIOS, ASPEN ([id number]), telegraph editor KAYKAY BRIONES ([id number]) on 07/03/2021 10:09:30 AM Referred By: CESAR Confirmed By:ASPEN QUINTERO MD
--- NOTE | 2021-06-29 19:30 | RAD_ITS ---
STUDY: X-RAY CHEST REASON FOR EXAM: Male, 80 years old. Stroke TECHNIQUE: Single AP portable view of the chest. COMPARISON: December 15, 2020 FINDINGS: There is hyperinflation of the lungs consistent with chronic obstructive lung disease (COPD). No visualized consolidation. There is no demonstrated pleural abnormality. Normal size heart. Normal mediastinum and jen. Normal visualized pulmonary arteries. There is atherosclerotic calcification of the aortic arch with tortuosity. There are diffuse degenerative changes of the visualized thoracic spine. Normal visualized ribs, clavicles, and shoulders. There is no demonstrated abnormality of the visualized soft tissue structures of the upper abdomen. RAD/Chest 1 View (Portable) IMPRESSION: COPD Electronically Signed: Eduardo Orozco MD at 21:05 EDT , Service support ,
[2021-06-29 20:01] LABS: Absolute Lymphocyte Count 1.05 X10^3/uL (0.83-4.51); Absolute Neutrophil Count 5.6 X10^3/uL (2.0-7.7); Basophil# 0.02 X10^3/uL; Basophil% 0.3 % (0-1); Eosinophil# 0.08 X10^3/uL; Hematocrit 28.9 % (40-54); Hemoglobin 9.1 g/dL (13.0-16.5); Lymphocyte # 1.05 X10^3/ul (0.83-4.51); Lymphocyte % 13.7 % (19-41); Mean Corp Hgb Conc 31.5 g/dL (32-36); Mean Corpuscular Hgb 33.5 pg (27.0-32.0); Mean Corpuscular Volume 106.3 fL (80-94); Monocyte# 0.89 X10^3/uL; Monocyte% 11.6 % (0-10); NRBC Flagged by Analyzer 0 % (0-5); Neutrophil # 5.58 X10^3/uL (2.7-7.7); Neutrophil % 73.1 % (47-70); Platelet Count 176 K/mm3 (150-450); RBC Distribution Width CV 16.5 % (11.6-14.6); RBC Distribution Width SD 64.7 fl (35.1-43.9); Red Blood Count 2.72 M/mm3 (4.6-6.2); White Blood Count 7.6 K/mm3 (4.4-11.0)
[2021-06-29 20:12] LABS: International Normalized Ratio 1.1; Partial Thromboplast Time 30.5 Seconds (24.1-36.2); Prothrombin Time (Protime)PT. 13.6 SECONDS (11.7-14.9)
[2021-06-29 20:15] LABS: Anion Gap 7 (5-15); BUN 37 mg/dL (7-18); BUN/Creat Ratio 8.4 RATIO (10-20); Calcium,Total 9.3 mg/dL (8.5-10.1); Chloride 94 mmol/L (98-107); EST Glomerular Filtration Rate 14 mL/min (>60); Est Glom Filt Rate - Afr Amer 17 mL/min (>60); Glucose 132 mg/dL (74-106); Potassium 4.7 mmol/L (3.5-5.1); Sodium Level 135 mmol/L (136-145)
[2021-06-29 20:21] VITALS: PULSE 103; RESP 15; O2SAT 94
[2021-06-29 20:22] VITALS: O2SAT 94
--- NOTE | 2021-06-29 22:45 | EX.ED.DYSGE1 ---
HPI History of Present Illness Chief Complaint: Dizziness Detail of Chief Complaint: Lightheadedness Informant: patient and family Onset/Context/Timing Onset: Days Context: Gradual Onset Timing: Intermittent Current Severity: Mild Maximum Severity: Mild Narrative Narrative: 72-year-old male past medical history of hypertension, diabetes prior partial colectomy secondary to polyps. No history of stroke or heart attack. In December of this year he had trouble with his balance he was hospitalized and they adjusted his blood pressure medications because he was running low. States that he has had off balance and lightheadedness for the last several days. He was seen in the emergency department several days ago had a negative work-up and was discharged home. Similar symptoms today when he was walking. He denies any vertiginous room spinning sensation. He is never had vertigo. He denies any recent illness. Prior similar symptoms: Yes Recent Illness/Hospitalization: No PFSH [facility] Medical History MOODY (acute kidney injury) Anemia Asthma Atrial fibrillation Benign essential HTN Brain aneurysm Chronic renal failure, stage 5 Colon polyps COPD (chronic obstructive pulmonary disease) CVA (cerebral vascular accident) Hepatitis C History of GI bleed PVD (peripheral vascular disease) Sleep apnea Tobacco use disorder Type II diabetes mellitus, uncontrolled Home Medications atorvastatin 10 mg PO QHS 05/05/19 [History Last Taken 12/14/20] ferrous sulfate 650 mg PO BID 05/05/19 [History Last Taken 12/15/20] mycophenolate mofetil 500 mg PO BID 09/06/20 [History Last Taken 12/15/20] calcium acetate(phosphat bind) 667 mg capsule 1,334 mg PO TIDCM 11/03/20 [History Last Taken 12/15/20] ergocalciferol (vitamin D2) 1,250 mcg (50,000 unit) capsule 1,250 mcg PO QMONTH 11/03/20 [History Last Taken 06/14/21] vit B comp no.5-afwiu-W-biotin 1 tab PO DAILY 12/15/20 [History Last Taken 12/15/20] Allergy/AdvReac Type Severity Reaction Status Date / Time varenicline tartrate Allergy makes me Verified 06/29/21 19:06 [From Chantix] loyd oseguera Family History Mother CVA (cerebral vascular accident) Diabetes Hypertension Father Colon cancer Diabetes Brother Diabetes Surgical History history insertion dialysis catheter (~11/04/20) History of cataract extraction History of colectomy History of colonoscopy (~06/2020) History of surgery on left wrist History of vein stripping Social History Smoking Status: Current every day smoker tobacco type: cigarettes ROS ROS ED ROS Narrative Denies recent illness. Review of Systems ROS Unobtainable: Denies due to encephalopathy Constitutional Constitutional ED: Denies chills or fever(s) Eyes Eyes: Denies change in vision ENT ENT ED: Denies ear pain or sore throat Cardiovascular Cardiovascular: Denies chest pain Respiratory/Chest Respiratory/Chest: Denies cough or dyspnea Gastrointestinal Gastrointestinal: Denies abdominal pain, diarrhea, nausea or vomiting Genitourinary Genitourinary ED: Denies dysuria Musculoskeletal Musculoskeletal: Denies myalgias Integumentary Denies rash Neurologic Neurologic: Denies headache(s) Psychiatric Psychiatric: Denies depression Endocrine Endocrinology: Denies polyuria Allergic/Immunologic Allergic/Immunologic ED: Denies urticaria EXAM Physical Exam Narrative Exam Narrative: 72-year-old male no acute distress. Vital signs are stable. Initial blood pressure was 150/113. He is afebrile. Patient is in no distress lying in bed. HEENT exam unremarkable. No facial droop. Tongue midline. Moist mucous membranes. No trauma. Neck nontender. Lungs clear to auscultation bilaterally. Heart regular rate and rhythm rate about 70 no murmur. Abdomen soft nontender normal bowel sounds no peritoneal signs. Moving all 4 extremities. 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 Dorsi plantarflexion intact. Back nontender. Neurologically is awake and alert there is no focal motor deficits lying in bed. His NIH score lying in bed is 0. He has no drift. He has normal speech. There is no facial droop. Const Vital Signs: 06/29/21 19:07 06/29/21 20:21 06/29/21 20:22 Temperature 97.6 F L Temperature Source Temporal Pulse Rate 65 103 H Pulse Rate [Lying] Pulse Rate [Sitting] Pulse Rate [Standing] Respiratory Rate 16 15 Respiratory Effort Respiratory Pattern Blood Pressure 150/113 H Blood Pressure [Lying] Blood Pressure [Sitting] Blood Pressure [Standing] Blood Pressure Mean 125 Blood Pressure Mean [Lying] Blood Pressure Mean [Sitting] Blood Pressure Mean [Standing] Pulse Ox 99 94 94 Oxygen Delivery Method Room Air Nasal Cannula Nasal Cannula Oxygen Flow Rate (L/min) 6 6 Fraction of Inspired Oxygen (FIO2) 100 06/29/21 22:34 06/29/21 22:53 06/30/21 00:16 Temperature Temperature Source Pulse Rate 57 L Pulse Rate [Lying] 62 Pulse Rate [Sitting] 63 Pulse Rate [Standing] 60 Respiratory Rate 18 Respiratory Effort Normal Non-Labored Respiratory Pattern Normal Blood Pressure 143/56 H Blood Pressure [Lying] 155/62 H Blood Pressure [Sitting] 146/77 H Blood Pressure [Standing] 144/50 H Blood Pressure Mean 85 Blood Pressure Mean [Lying] 93 Blood Pressure Mean [Sitting] 100 Blood Pressure Mean [Standing] 81 Pulse Ox 100 Oxygen Delivery Method Room Air Oxygen Flow Rate (L/min) Fraction of Inspired Oxygen (FIO2) 06/30/21 01:31 Temperature Temperature Source Pulse Rate 62 Pulse Rate [Lying] Pulse Rate [Sitting] Pulse Rate [Standing] Respiratory Rate 18 Respiratory Effort Respiratory Pattern Blood Pressure 155/60 H Blood Pressure [Lying] Blood Pressure [Sitting] Blood Pressure [Standing] Blood Pressure Mean 91 Blood Pressure Mean [Lying] Blood Pressure Mean [Sitting] Blood Pressure Mean [Standing] Pulse Ox 93 Oxygen Delivery Method Room Air Oxygen Flow Rate (L/min) Fraction of Inspired Oxygen (FIO2) Positive well nourished and well developed; Negative for obese, cachectic, contractures or unkempt General Appearance ED: well developed and NAD; Negative for unkempt, cachectic, contractures, cyanotic or diaphoretic Nutritional Appearance: Negative for cachectic or obese HEENT Reports moist mucous membranes Negative for trauma or tenderness Eyes PERRL and EOMs intact bilaterally Neck no lymphadenopathy, supple and no JVD General: Negative for tenderness Chest Wall inspection of chest normal and palpation of chest normal Resp normal respiratory effort and clear to auscultation bilaterally Auscultation: Negative for rales, rhonchi or wheezes Cardio regular rate, regular rhythm, S1 normal heart sound, S2 normal heart sound and no murmurs GI normal to inspection, nondistended, normoactive bowel sounds, non-tender, non-distended and no masses Auscultation: normoactive bowel sounds Palpation: soft; Negative for tender, guarding or rebound tenderness present Back/Spine no CVA tenderness General Back: Negative for CVA tenderness Cervical Spine: Negative for cervical spine tenderness Thoracic Spine / Upper Back: Negative for thoracic spinal tenderness Extremity normal to inspection General Extremety ED: Negative for edema or tenderness General Extremity: Negative for edema Neuro oriented x3 and CN's II-XII intact bilaterally Sensorium / Orientation: alert; Negative for orientation impaired, lethargic or stuporous Motor Exam: strength 5/5 throughout Psych mental status grossly normal Appearance: Negative for unkempt Attitude: No agitated Mood & Affect: Negative for depressed or tearful Skin no rashes or lesions noted, no wounds and No skin turgor normal MDM MDM MDM Narrative Medical decision making narrative: Older male complaining of lightheadedness and off balance. Unremarkable exam lying in bed. I will review his labs and images from the other day. His CAT scan at that time was unremarkable. Repeat exam unchanged at 1:30 AM. Discussed at length with patient and family at bedside. Family is concerned that he is a significant fall risk. Has had trouble ambulating for more than a year. Is progressively getting worse. They would like him assessed by physical therapy to determine if he needs to go to a long-term rehabilitation center or the transitional care unit or if this could be worked on as an outpatient. I will speak to the hospitalist about admission. Lab Data Attestation: I reviewed the patient's lab results. Lab results narrative: CBC shows a white count of 7. Hemoglobin 9.1. Electrolytes show sodium 135. Gap is 7 acute renal insufficiency of the BUN of 37 creatinine 4.4 which is his baseline. Glucose 132. This is his baseline anemia of chronic disease in his baseline renal insufficiency. Labs: Laboratory Results - last 24 hr 06/29/21 06/29/21 06/29/21 19:50 19:50 19:50 WBC 7.6 RBC 2.72 L Hgb 9.1 L Hct 28.9 L MCV 106.3 H MCH 33.5 H MCHC 31.5 L RDW Std Deviation 64.7 H RDW Coeff of Mihaela 16.5 H Plt Count 176 MPV 10.0 Immature Gran % (Auto) 0.300 Neut % (Auto) 73.1 H Lymph % (Auto) 13.7 L [place] % (Auto) 11.6 H Eos % (Auto) 1.0 Baso % (Auto) 0.3 Absolute Neuts (auto) 5.6 Absolute Lymphs (auto) 1.05 Nucleated RBC % 0 PT 13.6 INR 1.1 APTT 30.5 Sodium 135 L Potassium 4.7 Chloride 94 L Carbon Dioxide 34.0 H Anion Gap 7 BUN 37 H Creatinine 4.40 H Estim Creat Clear Calc 11.10 Est GFR (MDRD) Af Amer 17 L Est GFR (MDRD) Non-Af 14 L BUN/Creatinine Ratio 8.4 L Glucose 132 H Calcium 9.3 Radiography Chest X-Ray - ED: 1 View, Read by ED Physician, Read by Radiologist, Heart, Lungs, Mediastinum, Bony Structures, No Acute Disease and Chronic Changes Diagnostic Testing: Radiology Impression Chest X-Ray 06/29/21 19:30 IMPRESSION: COPD Electronically Signed: Eduardo Orozco MD at 21:05 EDT , Service support , Portable chest x-ray 1 view interpreted both by myself the radiologist shows chronic changes consistent with COPD. No acute infiltrates. Rhythm Strip Rhythm Strip: Sinus Rhythm Rate: 62 Ectopy: None EKG Initial EKG: Attestation: I personally reviewed and interpreted this EKG as follows: Interpretation: Sinus Rhythm and No Acute Injury Pattern Comments: Normal sinus rhythm rate of 62 no acute signs of AL nor ischemia. No dysrhythmia. LVH. Discharge Plan Triage Chief Complaint: Dizziness ED Provider: Mauri Gifford Dx/Rx/DC Orders Clinical Impression: Weakness, Difficulty in walking, History of end stage renal disease, Anemia due to chronic kidney disease Prescriptions: No Action ergocalciferol (vitamin D2) 1,250 mcg (50,000 unit) capsule 1,250 mcg PO QMONTH RF: 0 calcium acetate(phosphat bind) 667 mg capsule 1,334 mg PO TIDCM RF: 0 atorvastatin 10 MG tablet 10 mg PO QHS RF: 0 ferrous sulfate 325 MG tablet 650 mg PO BID RF: 0 mycophenolate mofetil 500 MG tablet 500 mg PO BID RF: 0 vit B comp no.5-qgsbg-M-biotin 1 EACH tablet 1 tab PO DAILY RF: 0 Primary Care Provider: Jr Desouza Referrals: Jr Desouza MD [Primary Care Provider] - Disposition Disposition: Acute Care Hospital [facility]
[2021-06-29 22:53] VITALS: BP 143/56; PULSE 57; RESP 18; O2SAT 100
[2021-06-30] VITALS (13 sets, daily range): BP systolic 141–171; BP diastolic 50–80; PULSE 60–84; RESP 16–18; TEMP 36.2–37.7; O2SAT 93–98; BMI 19.8
--- NOTE | 2021-06-30 03:27 | HP.PCM.HOS_ITS ---
HPI - General General Date of Admission: 06/30/21 HPI Narrative ABEL SOLIS, is a 80 M with a significant history of end-stage renal disease on dialysis who presents to the emergency department with lightheadedness and near syncope for the past 2 weeks. His symptoms are progressively worsening. Because of the above symptoms he is unable to walk. Of note patient was at a hospital ED on 06/25/2021. He had hyperkalemia and was given Kayexalate at that time. CT scan at that time showed no acute intracranial pathology. Patient was subsequently discharged home. [facility] Medical History MOODY (acute kidney injury) Anemia Asthma Atrial fibrillation Benign essential HTN Brain aneurysm Chronic renal failure, stage 5 Colon polyps COPD (chronic obstructive pulmonary disease) CVA (cerebral vascular accident) Hepatitis C History of GI bleed PVD (peripheral vascular disease) Sleep apnea Tobacco use disorder Type II diabetes mellitus, uncontrolled Home Medications atorvastatin 10 mg PO QHS 05/05/19 [History Last Taken 12/14/20] ferrous sulfate 650 mg PO BID 05/05/19 [History Last Taken 12/15/20] mycophenolate mofetil 500 mg PO BID 09/06/20 [History Last Taken 12/15/20] calcium acetate(phosphat bind) 667 mg capsule 1,334 mg PO TIDCM 11/03/20 [History Last Taken 12/15/20] ergocalciferol (vitamin D2) 1,250 mcg (50,000 unit) capsule 1,250 mcg PO QMONTH 11/03/20 [History Last Taken 06/14/21] vit B comp no.9-yoxhu-X-biotin 1 tab PO DAILY 12/15/20 [History Last Taken 12/15/20] Allergy/AdvReac Type Severity Reaction Status Date / Time varenicline tartrate Allergy makes me Verified 06/29/21 19:06 [From Dulce] loyd oseguera Family History Mother CVA (cerebral vascular accident) Diabetes Hypertension Father Colon cancer Diabetes Brother Diabetes Surgical History history insertion dialysis catheter (~11/04/20) History of cataract extraction History of colectomy History of colonoscopy (~06/2020) History of surgery on left wrist History of vein stripping Social History Smoking Status: Current every day smoker tobacco type: cigarettes ROS ROS Narrative Constitutional: Denies anorexia and change in weight Eyes: Denies blurry vision, change in eye color, change in vision, discharge from eye(s), double vision, erythema, eye pain, loss of vision or other HEENT: Denies abnormal hearing, dysphagia, ear pain, epistaxis, headache(s), hearing loss, nasal congestion, nasal discharge, post nasal drip, sinus pressure, sore throat or other Cardiovascular: Denies chest pain or palpitations. Denies dyspnea on exertion, orthopnea and paroxysmal nocturnal dyspnea Respiratory/Chest: Denies cough, excessive phlegm production, shortness of breath with exertion and wheezing Gastrointestinal: Denies abdominal pain, coffee ground emesis, constipation, diarrhea, dyspepsia, hematemesis, hematochezia, loose stools, melena, nausea, vomiting or other Genitourinary: Denies burning urination, difficulty urinating, dysuria, hematuria, nocturia, urinary frequency, urinary hesitancy, urinary incontinence, urinary urgency or other Musculoskeletal: Denies arthralgias, back pain, joint pain, joint stiffness, joint swelling, myalgias, neck pain or other Neurologic: Denies abnormal gait, abnormal speech, confusion, dizziness, focal weakness, headache(s), numbness, paresthesias, seizure-like activity, seizures, tingling, tremor(s) or other Psychiatric: Denies anxiety, depression, homicidal ideation, suicidal ideation or other Endocrinology: Denies change in body appearance, cold intolerance, excessive sweating, heat intolerance, polydipsia, polyuria or other Hematologic/Lymphatic: Denies anemia, easy bleeding, easy bruising, lymphadenopathy or other Integumentary: Denies rashes Allergic/Immunologic: Denies rhinitis, hives, eczema, asthma or other Vital Signs Vital Signs Vital Signs: 06/29/21 19:07 06/29/21 20:21 06/29/21 20:22 Temperature 97.6 F L Temperature Source Temporal Pulse Rate 65 103 H Pulse Rate [Lying] Pulse Rate [Sitting] Pulse Rate [Standing] Respiratory Rate 16 15 Respiratory Effort Respiratory Pattern Blood Pressure 150/113 H Blood Pressure [Lying] Blood Pressure [Sitting] Blood Pressure [Standing] Blood Pressure Mean 125 Blood Pressure Mean [Lying] Blood Pressure Mean [Sitting] Blood Pressure Mean [Standing] Pulse Ox 99 94 94 Oxygen Delivery Method Room Air Nasal Cannula Nasal Cannula Oxygen Flow Rate (L/min) 6 6 Fraction of Inspired Oxygen (FIO2) 100 06/29/21 22:34 06/29/21 22:53 06/30/21 00:16 Temperature Temperature Source Pulse Rate 57 L Pulse Rate [Lying] 62 Pulse Rate [Sitting] 63 Pulse Rate [Standing] 60 Respiratory Rate 18 Respiratory Effort Normal Non-Labored Respiratory Pattern Normal Blood Pressure 143/56 H Blood Pressure [Lying] 155/62 H Blood Pressure [Sitting] 146/77 H Blood Pressure [Standing] 144/50 H Blood Pressure Mean 85 Blood Pressure Mean [Lying] 93 Blood Pressure Mean [Sitting] 100 Blood Pressure Mean [Standing] 81 Pulse Ox 100 Oxygen Delivery Method Room Air Oxygen Flow Rate (L/min) Fraction of Inspired Oxygen (FIO2) 06/30/21 01:31 Temperature Temperature Source Pulse Rate 62 Pulse Rate [Lying] Pulse Rate [Sitting] Pulse Rate [Standing] Respiratory Rate 18 Respiratory Effort Respiratory Pattern Blood Pressure 155/60 H Blood Pressure [Lying] Blood Pressure [Sitting] Blood Pressure [Standing] Blood Pressure Mean 91 Blood Pressure Mean [Lying] Blood Pressure Mean [Sitting] Blood Pressure Mean [Standing] Pulse Ox 93 Oxygen Delivery Method Room Air Oxygen Flow Rate (L/min) Fraction of Inspired Oxygen (FIO2) Weight Weight: 56.699 kg Body Mass Index (BMI) 19.0 Physical Exam Narrative Physical exam: General: Well-nourished, well-developed. Head: Normocephalic, atraumatic, no tenderness Eyes: PERRLA, EOMI ENT, no trauma, moist mucous membranes, no rhinorrhea Neck: Nontender, full range of motion, no spinal tenderness, deformities, step- off CVS: Regular rate and rhythm. S1-S2 present. No murmur, gallop or rub. Respiratory : clear to auscultation bilaterally, chest wall nontender, no wheezing Abdomen: Soft, nontender, nondistended, normal bowel sounds, no masses : Deferred Back: Nontender, no CVA tenderness, no midline spinal tenderness, deformities, step-offs Extremities: Nontender full range of motion, no trauma Skin: Normal color, no trauma, abrasions Neuro: Alert, oriented, cranial nerves II through XII grossly intact. Psychiatry: Normal mood. Normal affect. Not depressed. Not anxious. Results Lab / Micro Data Result Diagrams: 06/29/21 19:50 06/29/21 19:50 Labs: Laboratory Results - last 24 hr 06/29/21 19:50: WBC 7.6, RBC 2.72 L, Hgb 9.1 L, Hct 28.9 L, MCV 106.3 H, MCH 33.5 H, MCHC 31.5 L, RDW Std Deviation 64.7 H, RDW Coeff of Mihaela 16.5 H, Plt Count 176, MPV 10.0, Immature Gran % (Auto) 0.300, Neut % (Auto) 73.1 H, Lymph % (Auto) 13.7 L, [place] % (Auto) 11.6 H, Eos % (Auto) 1.0, Baso % (Auto) 0.3, Absolute Neuts (auto) 5.6, Absolute Lymphs (auto) 1.05, Nucleated RBC % 0 06/29/21 19:50: PT 13.6, INR 1.1, APTT 30.5 06/29/21 19:50: Sodium 135 L, Potassium 4.7, Chloride 94 L, Carbon Dioxide 34.0 H, Anion Gap 7, BUN 37 H, Creatinine 4.40 H, Estim Creat Clear Calc 11.10, Est GFR (MDRD) Af Amer 17 L, Est GFR (MDRD) Non-Af 14 L, BUN/Creatinine Ratio 8.4 L, Glucose 132 H, Calcium 9.3 Rhythm Strip Rhythm Strip: Sinus Rhythm Rate: 62 Ectopy: None Radiology Impression Chest X-Ray 06/29/21 19:30 IMPRESSION: COPD Electronically Signed: Eduardo Orozco MD at 21:05 EDT , Service support , Assessment & Plan Assessment/Plan (1) Lightheadedness: (2) Near syncope: (3) Debility: PLAN: Lightheadedness and syncope EKG independently reviewed sinus rhythm with left ventricular hypertrophy previous EKG was reviewed. Previous EKG (06/25/2021) also showed left ventricular hypertrophy. Impression of chest x-ray by radiologist: COPD. Actual chest x-ray image was independently reviewed and interpreted as hyperinflation and in agreement with radiologist interpretation. No acute cardiopulmonary process noted. Echocardiogram ordered. Review of previous labs shows that on 06/25/2021 when patient presented with similar symptoms his high-sensitivity troponin was negative. Orthostatic vitals per protocol Debility Secondary to lightheadedness and syncope. PT and OT to work with patient. Case management consult for disposition. End-stage renal disease on dialysis Stable Renal diet. Patient's nephrology is Dr. Sunny Hamilton. Will consult Dr. Hamilton. Tobacco abuse Counselled Nicotine patch prescribed DVT prophylaxis:Heparin subcutaneous ordered. Charges/Coding Visit Charges OBSV E&M: 79438 Initial observation care L3
--- NOTE | 2021-06-30 05:03 | ECHOD_ITS ---
Reason For Study: SYNCOPE Procedure This was a 2D Doppler, Color Flow transthoracic echocardiogram. Exam performed portable in patient room. Left Ventricle Normal left ventricle. The estimated ejection fraction is EF 40-45% %. Right Ventricle Normal right ventricle. Normal systolic function. Atria The left atrium is mildly enlarged. Normal right atrium. Mitral Valve There is mild to moderate mitral annular calcification. Moderate (2+) mitral valve insufficiency. Tricuspid Valve Normal tricuspid valve. Mild to moderate (1-2+) tricuspid valve insufficiency. Aortic Valve Moderate focal aortic valve calcification. Trivial aortic valve insufficiency. Pulmonic Valve The pulmonic valve is not well visualized. Great Vessels Normal aortic root. Pericardium/Pleural No pericardial effusion. MMode/2D Measurements & Calculations LVIDd: 5.0 cm IVSd: 0.76 cm Ao root diam: 3.0 cm LVIDs: 3.8 cm LVPWd: 0.74 cm RVDd: 3.3 cm FS: 23.5 % LAV(MOD-bp): 75.0 ml LVAd ap4: 34.8 cm2 SV(MOD-sp4): 40.1 ml LAV(MOD-bp) Indexed: 44.1 ml/m2 LVLd ap4: 9.7 cm LAV(MOD-sp2): 86.7 ml EDV(MOD-sp4): 103.3 ml LAV(MOD-sp4): 61.2 ml EDV(sp4-el): 105.9 ml LVAs ap4: 24.3 cm2 LVLs ap4: 8.1 cm ESV(MOD-sp4): 63.2 ml ESV(sp4-el): 61.9 ml EF(MOD-sp4): 38.8 % EF(sp4-el): 41.5 % SV(sp4-el): 43.9 ml LA A4 area: 20.8 cm2 LA dimension(2D): 4.1 cm RA A4 area: 12.0 cm2 Doppler Measurements & Calculations MV E max avelino: 120.1 cm/sec Lat Peak E' Avelino: 11.0 cm/sec Med Peak E' Avelino: 7.5 cm/sec MV A max avelino: 92.5 cm/sec E/E' lat: 10.9 E/E' med: 16.0 MV E/A: 1.3 Ao V2 max: 150.4 cm/sec LV V1 max: 85.9 cm/sec TR max avelino: 289.6 cm/sec Ao max P.1 mmHg LV V1 max P.0 mmHg TR max P.7 mmHg ECHO/Echo Complete Interpretation Summary The estimated ejection fraction is EF 40-45% %. Mild global Hypokinesia Moderate MR Mild to moderate TR No pericardial Effusion Ordering Physician: Noe Weaver Referring Physician: PAM THOMAS Performed By: Elba Reno, ROSY, RVT
--- NOTE | 2021-06-30 05:09 | PCS.PANDOC ---
PANDEMIC DOCUMENTATION INITIATED: Date: 05/29/2021 Time: 190
[2021-06-30 08:02] LABS: Absolute Lymphocyte Count 0.89 X10^3/uL (0.83-4.51); Absolute Neutrophil Count 6.4 X10^3/uL (2.0-7.7); Basophil# 0.02 X10^3/uL; Basophil% 0.2 % (0-1); Eosinophil# 0.11 X10^3/uL; Eosinophils% 1.3 % (0-5); Hematocrit 24.7 % (40-54); Hemoglobin 7.8 g/dL (13.0-16.5); Lymphocyte # 0.89 X10^3/ul (0.83-4.51); Lymphocyte % 10.6 % (19-41); Mean Corp Hgb Conc 31.6 g/dL (32-36); Mean Corpuscular Hgb 33.3 pg (27.0-32.0); Mean Corpuscular Volume 105.6 fL (80-94); Mean Platelet Vol. 10.6 fl (6.2-12.0); Monocyte# 0.93 X10^3/uL; Monocyte% 11.1 % (0-10); NRBC Flagged by Analyzer 0 % (0-5); Neutrophil # 6.37 X10^3/uL (2.7-7.7); Neutrophil % 76.2 % (47-70); Platelet Count 158 K/mm3 (150-450); RBC Distribution Width CV 16.2 % (11.6-14.6); Red Blood Count 2.34 M/mm3 (4.6-6.2); White Blood Count 8.4 K/mm3 (4.4-11.0)
[2021-06-30 08:14] LABS: Anion Gap 8 (5-15); BUN 41 mg/dL (7-18); BUN/Creat Ratio 8.4 RATIO (10-20); Calcium,Total 8.6 mg/dL (8.5-10.1); Chloride 94 mmol/L (98-107); Creatinine, Serum 4.87 mg/dL (0.70-1.30); EST Glomerular Filtration Rate 12 mL/min (>60); Est Glom Filt Rate - Afr Amer 15 mL/min (>60); Estimated Creatinine Clearance 10.47 ml/min; Glucose 256 mg/dL (74-106); Potassium 4.4 mmol/L (3.5-5.1); Sodium Level 132 mmol/L (136-145)
--- NOTE | 2021-06-30 08:17 | PCM.DC ---
Discharge Instructions Diet Discharge Diet: Carb Control Diet and Renal Diet Activity Discharge Activity: Return to Normal Activity Weight Bearing Status: Weight bearing as tolerated Follow Up Care Test Results: Test results from this visit will be discussed in further detail at your follow-up appointment, if applicable. Discharge Plan Admission Admit Date/Time: 06/30/21 03:18 Attending Provider: Reba Muñoz Primary Care Provider: Jr Desouza Consulting Providers: Katie Hamilton Discharge Orders/Prescriptions Prescriptions: No Action ergocalciferol (vitamin D2) 1,250 mcg (50,000 unit) capsule 1,250 mcg PO QMONTH RF: 0 calcium acetate(phosphat bind) 667 mg capsule 1,334 mg PO TIDCM RF: 0 atorvastatin 10 MG tablet 10 mg PO QHS RF: 0 ferrous sulfate 325 MG tablet 650 mg PO BID RF: 0 mycophenolate mofetil 500 MG tablet 500 mg PO BID RF: 0 vit B comp no.5-qcisb-E-biotin 1 EACH tablet 1 tab PO DAILY RF: 0 Referrals / Follow Up: Jr Desouza MD [Primary Care Provider] - Disposition Discharge Orders: Discharge Patient (Routine); Ordered 06/30/21 Ordered By: Dr. Reba Muñoz
--- NOTE | 2021-06-30 08:40 | MRI_ITS ---
STUDY: MRI BRAIN WITHOUT CONTRAST REASON FOR EXAM: Male, 80 years old. neuro deficit -- dizzy TECHNIQUE: Standardized multiplanar fat and water weighted pulse sequences were obtained. COMPARISON: ct head 06.25.21. FINDINGS: There is mild cerebral atrophy with widening of the extra-axial spaces and ventricular dilatation. There are a limited number of small white matter hyperintensities, distributed throughout the deep white matter tracts of the cerebral hemispheres, consistent with mild chronic white matter ischemic changes. There is mild prominence of the vermian folia, consistent with atrophy of the vermis. The cerebellar hemispheres are normal. There is no evidence for recent intracranial ischemia or other cause of cytotoxic edema on diffusion weighted imaging (DWI). Normal bilateral basal ganglia. Normal thalami. There is no extra-axial fluid accumulation. Normal flow voids within the major intracranial circulation suggesting patency by spin echo criteria. Normal sella turcica, pituitary gland, infundibular stalk, optic chiasm and hypothalamus. Normal tectal plate and pineal gland. Normal midbrain, jose and medulla. Normal basal cisterns. Normal bilateral temporal bones. Normal bilateral internal auditory canals. No demonstrated orbital abnormality, within the constraints of a routine brain study. Normal visualized paranasal sinuses. Normal calvarium and skull base. Normal visualized soft tissue structures. Normal visualized upper cervical spine. Aspect score 10 IMPRESSION: (NOT LISTED IN ORDER OF SIGNIFICANCE) There are no acute intracranial findings. Electronically Signed: Jorden Amaro MD at 10:05 EDT , Service support , MRI/Brain without Contrast
--- NOTE | 2021-06-30 08:41 | PN.HOSP_ITS ---
Subjective Subjective Patient was seen and examined. He was admitted this morning with near syncope and dizziness. Orthostatic vitals are negative. Patient still has dizziness. Labs reviewed and are stable Objective Data Objective Data Vital Signs: Vital Signs Temp Pulse Resp BP Pulse Ox 97.7 F L 66 18 141/80 H 95 06/30/21 05:18 06/30/21 05:18 06/30/21 05:18 06/30/21 05:18 06/30/21 08:32 Oxygen Flow Rate (L/min) 6 Oxygen Delivery Method Room Air Weight: 59.2 kg Body Mass Index (BMI) 19.8 Intake & Output: Intake and Output for Last 24 Hours 06/28/21 06/29/21 06/30/21 23:59 23:59 23:59 Intake Total 0 / 0 Balance 0 / 0 Lab / Micro Data Result Diagrams: 06/30/21 13:24 06/30/21 07:10 Labs: Laboratory Results - last 24 hr 06/29/21 19:50: WBC 7.6, RBC 2.72 L, Hgb 9.1 L, Hct 28.9 L, MCV 106.3 H, MCH 33.5 H, MCHC 31.5 L, RDW Std Deviation 64.7 H, RDW Coeff of Mihaela 16.5 H, Plt Count 176, MPV 10.0, Immature Gran % (Auto) 0.300, Neut % (Auto) 73.1 H, Lymph % (Auto) 13.7 L, [place] % (Auto) 11.6 H, Eos % (Auto) 1.0, Baso % (Auto) 0.3, Absolute Neuts (auto) 5.6, Absolute Lymphs (auto) 1.05, Nucleated RBC % 0 06/29/21 19:50: PT 13.6, INR 1.1, APTT 30.5 06/29/21 19:50: Sodium 135 L, Potassium 4.7, Chloride 94 L, Carbon Dioxide 34.0 H, Anion Gap 7, BUN 37 H, Creatinine 4.40 H, Estim Creat Clear Calc 11.10, Est GFR (MDRD) Af Amer 17 L, Est GFR (MDRD) Non-Af 14 L, BUN/Creatinine Ratio 8.4 L, Glucose 132 H, Calcium 9.3 06/30/21 07:10: WBC 8.4, RBC 2.34 L, Hgb 7.8 L, Hct 24.7 L, MCV 105.6 H, MCH 33.3 H, MCHC 31.6 L, RDW Std Deviation 63.0 H, RDW Coeff of Mihaela 16.2 H, Plt Count 158, MPV 10.6, Immature Gran % (Auto) 0.600, Neut % (Auto) 76.2 H, Lymph % (Auto) 10.6 L, [place] % (Auto) 11.1 H, Eos % (Auto) 1.3, Baso % (Auto) 0.2, Absolute Neuts (auto) 6.4, Absolute Lymphs (auto) 0.89, Nucleated RBC % 0 06/30/21 07:10: Sodium 132 L, Potassium 4.4, Chloride 94 L, Carbon Dioxide 30.0, Anion Gap 8, BUN 41 H, Creatinine 4.87 H, Estim Creat Clear Calc 10.47, Est GFR (MDRD) Af Amer 15 L, Est GFR (MDRD) Non-Af 12 L, BUN/Creatinine Ratio 8.4 L, Glucose 256 H, Calcium 8.6 Radiography Diagnostic Testing: Radiology Impression Chest X-Ray 06/29/21 19:30 IMPRESSION: COPD Electronically Signed: Eduardo Orozco MD at 21:05 EDT , Service support , Rhythm Strip Rhythm Strip: Sinus Rhythm Rate: 62 Ectopy: None Physical Exam Narrative Physical exam: General: Alert, Oriented x3, Cooperative, No apparent distress, Well developed HEENT: Atraumatic Oral: Moist Mucosa Neck: Supple Lungs: Clear to auscultation Cardiovascular: HS I+II, regular, no murmurs Abdomen: Bowel Sounds Present, Soft, Non Tender Extremities: No edema ACTING PROFESSOR: Cranial II-XII intact, power 5/5 in all extremities, normal tone, [id number] test intact, did not walk patient Assessment & Plan Assessment/Plan (1) Debility: (2) Lightheadedness: (3) Near syncope: (4) Anemia due to chronic kidney disease: QUALIFIERS: Chronic kidney disease stage: on chronic dialysis Qualified Code(s): N18.6 - End stage renal disease; D63.1 - Anemia in chronic kidney disease; Z99.2 - Dependence on renal dialysis (5) Ataxia: PLAN: 1. Acute dizziness/presyncope/ataxia Orthostatic vitals negative Admitting EKG showed normal sinus rhythm, no acute ST-T changes 2D echo ordered MRI brain to rule out posterior circulation 2. Anemia, chronic, anemia of CKD Admitting hemoglobin was 9.1, hemoglobin 7.89 We will check stool for occult blood, iron studies 3. Debility, related to the above 4. End-stage renal disease on dialysis, on hemodialysis- -- 5. Nicotine dependence, on nicotine patch Charges/Coding Visit Charges Inpatient E&M: 19649 Subs Hosp L2
[2021-06-30] MEDS: Heparin Injection (Vial) 5,000 UNIT/ML VIAL 5000 UNIT SC ×2 (08:51→21:28)
[2021-06-30 09:50] LABS: Vitamin B12 543 pg/mL (211-911)
--- NOTE | 2021-06-30 09:50 | CASEMGMT ---
SW had a note to call patient's daughter regarding placement. SW spoke with therapy and patient is strong, but very unsteady and wobbily. They are recommending SNF. SW then called patient's daughter and she said she and patient have been discussing SNF. She said he has been to [facility] and he would not mind going back there. She said their second choice would be [facility]. She asked if they have dialysis on site at [facility] and SW told her they do. MODESTO told her SW will talk with patient to make sure he is in agreement and then work on referral. SW will be in touch. SW went to see patient, but they were taking him to MRI. MODESTO did call Barb with [facility] regarding referral and also faxed referral. Await their decision and SW to double check with patient that he is okay with [facility] or [facility]. Gina Meier RETAIL OFFICE MANAGER [employer]
[2021-06-30 10:26] LABS: Iron 38 ug/dL (65-175); Iron Binding Capacity,Total 237 ug/dL (250-450)
--- NOTE | 2021-06-30 11:00 | CASEMGMT ---
SW spoke with patient and he was in agreement with going to [facility]. MODESTO told him SW sent a referral. We are just waiting on them to get back to SW. Gina CHAO
--- NOTE | 2021-06-30 12:31 | CON.PCM.RE_ITS ---
Assessment & Plan Assessment/Plan (1) History of end stage renal disease: PLAN: Dialysis today and Saturday (2) Anemia due to chronic kidney disease: QUALIFIERS: Chronic kidney disease stage: on chronic dialysis Qu alified Code(s): N18.6 - End stage renal disease; D63.1 - Anemia in chronic kidney disease; Z99.2 - Dependence on renal dialysis PLAN: ESRD on dialysis (3) Near syncope: PLAN: PT evaluation, monitor for arrhythmia (4) Weakness: (5) Benign essential HTN: PLAN: stable (6) DM type 2 (diabetes mellitus, type 2): PLAN: primary mgmt HPI Consult Data Date of Consult: 06/30/21 HPI Narrative HPI Narrative: ABEL SOLIS, is a 80 M with end-stage renal disease on hemodialysis Saturday posterior unit presents with near syncope, weakness for the past several weeks. He notices the symptoms after dialysis. He notices palpitations without shortness of breath. CT of the head was unremarkable on admission. Currently receiving hemodialysis. Physical therapy on consult for evaluation, blood pressure has been stable. [facility] Medical History MOODY (acute kidney injury) Anemia Asthma Atrial fibrillation Benign essential HTN Brain aneurysm Chronic renal failure, stage 5 Colon polyps COPD (chronic obstructive pulmonary disease) CVA (cerebral vascular accident) Hepatitis C History of GI bleed PVD (peripheral vascular disease) Sleep apnea Tobacco use disorder Type II diabetes mellitus, uncontrolled Home Medications atorvastatin 10 mg PO QHS 05/05/19 [History Last Taken 12/14/20] ferrous sulfate 650 mg PO BID 05/05/19 [History Last Taken 12/15/20] mycophenolate mofetil 500 mg PO BID 09/06/20 [History Last Taken 12/15/20] calcium acetate(phosphat bind) 667 mg capsule 1,334 mg PO TIDCM 11/03/20 [History Last Taken 12/15/20] ergocalciferol (vitamin D2) 1,250 mcg (50,000 unit) capsule 1,250 mcg PO QMONTH 11/03/20 [History Last Taken 06/14/21] vit B comp no.2-dnrxn-Y-biotin 1 tab PO DAILY 12/15/20 [History Last Taken 12/15/20] Allergy/AdvReac Type Severity Reaction Status Date / Time varenicline tartrate Allergy makes me Verified 06/29/21 19:06 [From Chantix] weird, loyd Family History Mother CVA (cerebral vascular accident) Diabetes Hypertension Father Colon cancer Diabetes Brother Diabetes Surgical History history insertion dialysis catheter (~11/04/20) History of cataract extraction History of colectomy History of colonoscopy (~06/2020) History of surgery on left wrist History of vein stripping Social History Smoking Status: Current every day smoker tobacco type: cigarettes ROS Constitutional Constitutional: Reports weakness; Denies chills or fever(s) Cardiovascular Cardiovascular: Reports palpitations; Denies chest pain or edema Respiratory/Chest Respiratory/Chest: Denies shortness of breath at rest Gastrointestinal Gastrointestinal: Denies diarrhea, nausea or vomiting Neurologic Neurologic: Reports weakness and other Details: Near syncope ; Denies frequent falls Psychiatric Psychiatric: Reports depression; Denies anxiety Hematologic/Lymphatic Hematologic/Lymphatic: Reports anemia Physical Exam Const alert, oriented x3 and no apparent distress Resp clear to auscultation bilaterally Cardio regular rate GI non-tender and non-distended Palpation: soft Extremity no clubbing, cyanosis or edema Extremity Narrative: AV fistula weak thrill and bruit difficult cannulation Skin Skin Narrative: Ecchymosis of the arms chronic Neuro Sensorium / Orientation: awake and alert Psych cooperative Lab / Micro Data Result Diagrams: 06/30/21 07:10 06/30/21 07:10 Labs: Laboratory Results - last 24 hr 06/29/21 19:50: WBC 7.6, RBC 2.72 L, Hgb 9.1 L, Hct 28.9 L, MCV 106.3 H, MCH 33.5 H, MCHC 31.5 L, RDW Std Deviation 64.7 H, RDW Coeff of Mihaela 16.5 H, Plt Count 176, MPV 10.0, Immature Gran % (Auto) 0.300, Neut % (Auto) 73.1 H, Lymph % (Auto) 13.7 L, [place] % (Auto) 11.6 H, Eos % (Auto) 1.0, Baso % (Auto) 0.3, Absolute Neuts (auto) 5.6, Absolute Lymphs (auto) 1.05, Nucleated RBC % 0 06/29/21 19:50: PT 13.6, INR 1.1, APTT 30.5 06/29/21 19:50: Sodium 135 L, Potassium 4.7, Chloride 94 L, Carbon Dioxide 34.0 H, Anion Gap 7, BUN 37 H, Creatinine 4.40 H, Estim Creat Clear Calc 11.10, Est GFR (MDRD) Af Amer 17 L, Est GFR (MDRD) Non-Af 14 L, BUN/Creatinine Ratio 8.4 L, Glucose 132 H, Calcium 9.3 06/29/21 19:50: Vitamin B12 543 06/30/21 07:10: WBC 8.4, RBC 2.34 L, Hgb 7.8 L, Hct 24.7 L, MCV 105.6 H, MCH 33.3 H, MCHC 31.6 L, RDW Std Deviation 63.0 H, RDW Coeff of Mihaela 16.2 H, Plt Count 158, MPV 10.6, Immature Gran % (Auto) 0.600, Neut % (Auto) 76.2 H, Lymph % (Auto) 10.6 L, [place] % (Auto) 11.1 H, Eos % (Auto) 1.3, Baso % (Auto) 0.2, Absolute Neuts (auto) 6.4, Absolute Lymphs (auto) 0.89, Nucleated RBC % 0 06/30/21 07:10: Sodium 132 L, Potassium 4.4, Chloride 94 L, Carbon Dioxide 30.0, Anion Gap 8, BUN 41 H, Creatinine 4.87 H, Estim Creat Clear Calc 10.47, Est GFR (MDRD) Af Amer 15 L, Est GFR (MDRD) Non-Af 12 L, BUN/Creatinine Ratio 8.4 L, Glucose 256 H, Calcium 8.6 06/30/21 07:10: Iron 38 L, TIBC 237 L, Iron Saturation 16.0, Folate 75.10 H Rhythm Strip Rhythm Strip: Sinus Rhythm Rate: 62 Ectopy: None Radiology Impression Chest X-Ray 06/29/21 19:30 IMPRESSION: COPD Electronically Signed: Eduardo Orozco MD at 21:05 EDT , Service support , Brain MRI 06/30/21 08:40
[2021-06-30 13:35] LABS: Hematocrit 25.2 % (40-54)
[2021-06-30] MEDS: Epoetin Alfa epbx 10,000 UNITS/ML 6000 UNIT IV (15:26)
--- NOTE | 2021-06-30 16:15 | DIALYSIS ---
HD x 3 hours and 15 minutes complete. Tolerated tx well. UF of 1000ml. Used upper left arm fistula. Difficulty placing venous needle. Dr. Hamilton is aware. Buckley removed post tx and pressure applied x 10 minutes. Hemostasis achieved and fresh gauze and tape applied. Meds given as ordered. See tx sheet for more details. Report was given to JENIFER Gallo.
--- NOTE | 2021-06-30 16:45 | CASEMGMT ---
MODESTO received a call from Barb with [employer] [facility] and they can take patient whenever he is ready. MODESTO called patient's daughter and let her know and that he won't be going until tomorrow now. Green sheet on chart. Plan: d/c to [facility] under skilled level of care on a PASRR as he is observation status. Gina Meier CHEF & OWNER [employer]
[2021-06-30] MEDS: Acetaminophen 325 MG Tablet 650 MG PO (21:28)
[2021-07-01] VITALS (7 sets, daily range): BP systolic 115–164; BP diastolic 67–74; PULSE 71–77; RESP 18; TEMP 36.7–37.6; O2SAT 91–97
[2021-07-01 09:15] LABS: Absolute Neutrophil Count 7.7 X10^3/uL (2.0-7.7); Basophil# 0.03 X10^3/uL; Basophil% 0.3 % (0-1); Eosinophil# 0.03 X10^3/uL; Eosinophils% 0.3 % (0-5); Hematocrit 26.1 % (40-54); Hemoglobin 8.4 g/dL (13.0-16.5); Lymphocyte % 10.3 % (19-41); Mean Corp Hgb Conc 32.2 g/dL (32-36); Mean Corpuscular Hgb 34.1 pg (27.0-32.0); Mean Corpuscular Volume 106.1 fL (80-94); Mean Platelet Vol. 10.1 fl (6.2-12.0); Monocyte# 0.96 X10^3/uL; Monocyte% 9.9 % (0-10); NRBC Flagged by Analyzer 0 % (0-5); Neutrophil # 7.66 X10^3/uL (2.7-7.7); Platelet Count 147 K/mm3 (150-450); RBC Distribution Width SD 62.4 fl (35.1-43.9); Red Blood Count 2.46 M/mm3 (4.6-6.2); White Blood Count 9.7 K/mm3 (4.4-11.0)
[2021-07-01] MEDS: Heparin Injection (Vial) 5,000 UNIT/ML VIAL 5000 UNIT SC (09:32)
[2021-07-01 09:38] LABS: ALB/GLOB Ratio 0.9 RATIO (0.9-2.4); AST(SGOT) 13 U/L (15-37); Alanine Aminotransfer ALT/SGPT 18 U/L (16-61); Albumin, Serum 3.1 g/dL (3.2-5.0); Alkaline Phosphatase 62 U/L (45-117); Anion Gap 7 (5-15); BUN 31 mg/dL (7-18); BUN/Creat Ratio 8.1 RATIO (10-20); Calcium,Total 8.6 mg/dL (8.5-10.1); Chloride 97 mmol/L (98-107); Creatinine, Serum 3.84 mg/dL (0.70-1.30); EST Glomerular Filtration Rate 16 mL/min (>60); Est Glom Filt Rate - Afr Amer 20 mL/min (>60); Estimated Creatinine Clearance 13.28 ml/min; Globulin 3.5 g/dL (2.2-4.2); Glucose 112 mg/dL (74-106); Potassium 4.1 mmol/L (3.5-5.1); Protein, Total 6.6 g/dL (6.4-8.2); Sodium Level 136 mmol/L (136-145)
--- NOTE | 2021-07-01 11:20 | CASEMGMT ---
RN RAE called daughter, Jovita SHANNON, to complete HART form via phone, patient is alert to self. RN RAE explained HART form to daughter, daughter voiced understanding. Daughter gave telephone consent via phone. HART form filed in chart. Patient provided copy of form. Daughter had no further questions or concerns.
--- NOTE | 2021-07-01 14:48 | PCM.TXEXTCAR ---
Diet 06/30/21 12:39 Diet: Renal - General Routine Orders/Code Status O2 Frequency: PRN Keep PO Greater than or Equal to (%): 94 Routine Lab Work: CBC (within 3 days) and BMP (within 3 days) Code Status: Full Code Therapies Weight Bearing: Weight bearing as tolerated Physical Therapy: Eval and Treat Occupational Therapy: Eval and Treat Problem/Diagnosis (1) Debility: Status: Acute (2) Lightheadedness: Status: Acute (3) Near syncope: Status: Acute (4) Anemia due to chronic kidney disease: Status: Chronic (5) Ataxia: Status: Acute Allergies/Procedures Done in Hospital Allergies varenicline tartrate [From Chantix] Allergy (Verified 06/29/21 19:06) makes me weird, hallucinations Procedures: 2-D Echocardiogram Type of Care/Length of Stay Estimated LOS: Convalescent Care Less Than 30 days Type of Care Needed: Skilled Rehab Potential: Good Prognosis: Good Additional Orders/Day of Discharge Day of Discharge: 07/01/21 Discharge Plan Admission Admit Date/Time: 06/30/21 03:18 Primary Reason for Your Visit: Acute dizziness Attending Provider: Reba Muñoz Primary Care Provider: Jr Desouza Consulting Providers: Katie Hamilton Discharge Orders/Prescriptions Prescriptions: New nicotine 14 mg/24 hr Patch 24 Hour 14 mg transdermal DAILY 28 Days Qty: 28 RF: 0 Continued ergocalciferol (vitamin D2) 1,250 mcg (50,000 unit) capsule 1,250 mcg PO QMONTH RF: 0 calcium acetate(phosphat bind) 667 mg capsule 2,001 mg PO TIDCM RF: 0 atorvastatin 10 MG tablet 10 mg PO QHS RF: 0 mycophenolate mofetil 500 MG tablet 500 mg PO BID RF: 0 Nephro-Lola 0.8 mg tablet 1 tab PO DAILY RF: 0 Lokelma 5 gram powder in packet 5 g PO DAILY RF: 0 Discontinued amlodipine 10 mg tablet 10 mg PO DAILY RF: 0 labetalol 100 mg tablet 100 mg PO TID RF: 0 Referrals / Follow Up: Jr Desouza MD [Primary Care Provider] - Disposition Disposition (needs filled in before D/C Order can be placed): Retirement Facility
--- NOTE | 2021-07-01 14:52 | DS.PCM_ITS ---
Providers Date of Admission: 06/30/21 Date of Discharge: 07/01/21 Primary Care Physician: Dr. Jr Thomas MD Consultations 06/30/21 05:03 Consult: Nephrology Routine Consulting Provider: Katie Hamilton Reason for Consult: ESRD on dialysis EMERGENT Consult: No MD Notified: Yes Date Notified: 06/30/21 Time Notified: 07:00 Method of Notification: Text Reason For Visit: NEAR SYNCOPE Diagnosis Discharge Diagnosis (1) Debility: Status: Acute Code(s): R53.81 - Other malaise (2) Lightheadedness: Status: Resolved Code(s): R42 - Dizziness and giddiness (3) Near syncope: Status: Resolved Code(s): R55 - Syncope and collapse (4) Anemia due to chronic kidney disease: Status: Chronic Code(s): N18.9 - Chronic kidney disease, unspecified; D63.1 - Anemia in chronic kidney disease Qualifiers: Chronic kidney disease stage: on chronic dialysis Qualified Code(s): N18.6 - End stage renal disease; D63.1 - Anemia in chronic kidney disease; Z99.2 - Dependence on renal dialysis (5) Ataxia: Status: Acute Code(s): R27.0 - Ataxia, unspecified Medications at Discharge Home Medications atorvastatin 10 mg PO QHS 05/05/19 mycophenolate mofetil 500 mg PO BID 09/06/20 calcium acetate(phosphat bind) 667 mg capsule 2,001 mg PO TIDCM 11/03/20 ergocalciferol (vitamin D2) 1,250 mcg (50,000 unit) capsule 1,250 mcg PO QMONTH 11/03/20 Lokelma 5 g PO DAILY 07/01/21 Nephro-Lola 1 tab PO DAILY 07/01/21 nicotine 14 mg TRANSDERMAL DAILY 28 Days #28 ea 07/01/21 Hospital Course Operations None Procedures 2-D Echocardiogram Summary of Care Provided Minutes Spent on Discharge: 40 Hospital Course: 89-year-old male with past medical history of ESRD on hemodialysis who presented with lightheadedness and near syncope ongoing for the past 2 weeks. Patient stated that he has been unable to walk. He was recently in the emergency room on 06/25/21 and found to be hyperkalemic. He was given Kayexalate at that time. His CT scan of the head showed no acute intracranial abnormality. Patient was admitted to the PCU, orthostatic vitals were negative. Patient was found to be significantly dizzy. He underwent dialysis during this hospital stay. Work-up for acute posterior stroke was negative with MRI. 2D echo shows EF of 40 to 45%. Patient was monitored off his blood pressure medications. His symptoms were resolved at discharge. He was skilled for discharge to subacute [facility]. His blood pressures remained stable. Physical Exam Narrative Physical exam: General: Alert, Oriented x3, Cooperative, No apparent distress, Well developed HEENT: Atraumatic Oral: Moist Mucosa Neck: Supple Lungs: Clear to auscultation Cardiovascular: HS I+II, regular, no murmurs Abdomen: Bowel Sounds Present, Soft, Non Tender Extremities: No edema HIGH VOLTAGE ELECTRICIAN: Cranial II-XII intact, power 5/5 in all extremities, normal tone, [id number]-xz-[id number] test intact, did not walk patient Weight / BMI Weight Weight: 59.2 kg Body Mass Index (BMI) 19.8 ABG / Lab / Microbiology Data Result Diagrams: 07/01/21 09:00 07/01/21 09:00 Laboratory: Laboratory Results - last 24 hr 07/01/21 09:00: WBC 9.7, RBC 2.46 L, Hgb 8.4 L, Hct 26.1 L, MCV 106.1 H, MCH 34.1 H, MCHC 32.2, RDW Std Deviation 62.4 H, RDW Coeff of Mihaela 16.0 H, Plt Count 147 L, MPV 10.1, Immature Gran % (Auto) 0.200, Neut % (Auto) 79.0 H, Lymph % (Auto) 10.3 L, [place] % (Auto) 9.9, Eos % (Auto) 0.3, Baso % (Auto) 0.3, Absolute Neuts (auto) 7.7, Absolute Lymphs (auto) 1.00, Nucleated RBC % 0 07/01/21 09:00: Sodium 136, Potassium 4.1, Chloride 97 L, Carbon Dioxide 32.0, Anion Gap 7, BUN 31 H, Creatinine 3.84 H, Estim Creat Clear Calc 13.28, Est GFR (MDRD) Af Amer 20 L, Est GFR (MDRD) Non-Af 16 L, BUN/Creatinine Ratio 8.1 L, Glucose 112 H, Calcium 8.6, Total Bilirubin 0.70, AST 13 L, ALT 18, Alkaline Phosphatase 62, Total Protein 6.6, Albumin 3.1 L, Globulin 3.5, Albumin/Globulin Ratio 0.9 Radiography Diagnostic Testing: Radiology Impression Echocardiogram 06/30/21 05:03 Interpretation Summary The estimated ejection fraction is EF 40-45% %. Mild global Hypokinesia Moderate MR Mild to moderate TR No pericardial Effusion Ordering Physician: Noe Weaver Referring Physician: PAM THOMAS Performed By: Elba Reno RDCS, RVT D/C Instructions Discharge Diet: Low fat / Low cholesterol and 2000 mg Sodium Diet Discharge Activity: Return to Normal Activity Meaningful Use Info Meaningful Use Diagnoses (Choose all that apply): None applicable Discharge Plan Admission Admit Date/Time: 06/30/21 03:18 Primary Reason for Your Visit: Acute dizziness Attending Provider: Reba Muñoz Primary Care Provider: Jr Thomas Consulting Providers: Katie Hamilton Discharge Orders/Prescriptions Prescriptions: New nicotine 14 mg/24 hr Patch 24 Hour 14 mg transdermal DAILY 28 Days Qty: 28 RF: 0 Continued ergocalciferol (vitamin D2) 1,250 mcg (50,000 unit) capsule 1,250 mcg PO QMONTH RF: 0 calcium acetate(phosphat bind) 667 mg capsule 2,001 mg PO TIDCM RF: 0 atorvastatin 10 MG tablet 10 mg PO QHS RF: 0 mycophenolate mofetil 500 MG tablet 500 mg PO BID RF: 0 Nephro-Lola 0.8 mg tablet 1 tab PO DAILY RF: 0 Lokelma 5 gram powder in packet 5 g PO DAILY RF: 0 Discontinued amlodipine 10 mg tablet 10 mg PO DAILY RF: 0 labetalol 100 mg tablet 100 mg PO TID RF: 0 Referrals / Follow Up: Jr Thomas MD [Primary Care Provider] - Disposition Disposition (needs filled in before D/C Order can be placed): Nursing Home Facility Charges/Coding Visit Charges OBSV E&M: 33633 Observation care discharge
--- NOTE | 2021-07-01 16:18 | NURSING ---
Report called to nurse Екатерина, for pt return to [facility].
--- NOTE | 2021-07-01 17:17 | NURSING ---
Pt daughter Jovita updated to pt going to [facility].
== END 2021-07-01 17:21 | disposition skilled nursing facility (03) ==
LOC: ED 06-30 02:23 → PCU 06-30 04:32
PROVIDERS: Admitting Provider Hospitalist; Emergency Provider Emergency Medicine; PCP Family Medicine; Visit Provider Internal Medicine
DX: R55 Syncope and collapse (principal); R42 Dizziness and giddiness; D63.1 Anemia in chronic kidney disease; N18.6 End stage renal disease; I12.0 Hypertensive chronic kidney disease with stage 5 chronic kidney disease or end stage renal disease; E11.22 Type 2 diabetes mellitus with diabetic chronic kidney disease; R29.700 NIHSS score 0; E11.51 Type 2 diabetes mellitus with diabetic peripheral angiopathy without gangrene; J44.9 Chronic obstructive pulmonary disease, unspecified; G47.30 Sleep apnea, unspecified; F17.210 Nicotine dependence, cigarettes, uncomplicated; I48.91 Unspecified atrial fibrillation; Z79.899 Other long term (current) drug therapy; Z99.2 Dependence on renal dialysis; Z86.19 Personal history of other infectious and parasitic diseases
CPT/HCPCS: 36415; 70551; 71045; 80048; 80053; 82607; 82746; 83540; 83550; 85014; 85018; 85025; 85610; 85730; 87426; 90937; 93005; 93306; 96372; 96374; 96375; 97116; 97162; 97166; 97535; 99218; 99285; J1756; J7030; A4216; G0257; G0378; Q5106

== ENCOUNTER 2021-07-22 22:17 | Inpatient (IN) | payer MEDICARE, SELFPAY ==
[2021-07-22 22:18] VITALS: BP 144/69; PULSE 102; RESP 33; TEMP 38.2; O2SAT 96; BMI 19.3
--- NOTE | 2021-07-22 22:20 | EKG12_ITS ---
Test Reason : ALT LOC Blood Pressure : / mmHG Vent. Rate : 098 BPM Atrial Rate : 098 BPM P-R Int : 150 ms QRS Dur : 088 ms QT Int : 398 ms P-R-T Axes : 039 027 -04 degrees QTc Int : 508 ms Normal sinus rhythm Nonspecific ST abnormality Prolonged QT Abnormal ECG Confirmed by INGRID BERRIOS, ASPEN ([id number]), research editor KAYKAY BRIONES ([id number]) on 07/25/2021 9:31:10 AM Referred By: LULU Confirmed By:ASPEN QUINTERO MD
--- NOTE | 2021-07-22 22:20 | RAD_ITS ---
EXAM: XR Chest, 1 View CLINICAL INDICATION: 80 years old, Male; hypoxia TECHNIQUE: Frontal view of the chest. This report was created using [employer] report generation technology. COMPARISON: None. FINDINGS: Lungs and pleural spaces: Infiltrates throughout both lungs may be due to edema or pneumonia. Blunting of the left costophrenic angle may be due to a small amount of fluid or pleural thickening. No pneumothorax. Heart: Unremarkable. Cardiac silhouette not enlarged. Mediastinum: Central airways and mediastinal contour are unremarkable. Bones/joints: Advanced degenerative changes both shoulders. Soft tissues: Unremarkable. RAD/Chest 1 View (Portable) IMPRESSION: 1. Infiltrates throughout both lungs may be due to edema or pneumonia. 2. Advanced degenerative changes both shoulders. ASSESSMENT: ABNORMAL report - There are abnormal findings in this report which may be related or unrelated to the reason for the exam. Electronically Signed: Cuong Ramirez MD at 23:07 EDT Tel , Service support ,
--- NOTE | 2021-07-22 22:20 | RAD_ITS ---
EXAM: XR Right Humerus, 2 or More Views CLINICAL INDICATION: 80 years old, Male; pain, fall TECHNIQUE: Frontal and lateral views of the right humerus. This report was created using [employer] report generation technology. COMPARISON: None. FINDINGS: Bones/joints: Advanced degenerative changes right shoulder. Calcific tendinosis of the lateral epicondyle. No acute fracture. No subluxation. Normal alignment. No sclerotic or destructive changes observed. Soft tissues: Unremarkable. No soft tissue swelling or gas. No radiopaque foreign body. RAD/Humerus min 2 Views IMPRESSION: Advanced degenerative changes right shoulder. ASSESSMENT: ABNORMAL report - There are abnormal findings in this report which may be related or unrelated to the reason for the exam. Electronically Signed: Cuong Ramirez MD at 23:06 EDT Tel , Service support ,
--- NOTE | 2021-07-22 22:21 | CT_ITS ---
EXAM: CT Head Without Intravenous Contrast CLINICAL INDICATION: 80 years old, Male; weakness, fall TECHNIQUE: Multiple axial images were obtained of the head without intravenous contrast. This CT exam was performed using one or more of the following dose reduction techniques: automated exposure control, adjustment of the mA and/or kV according to patient size, and/or use of iterative reconstruction technique. This report was created using [employer] report generation technology. COMPARISON: Head CT dated 06/25/2021 FINDINGS: Brain and extra-axial spaces: Mild small vessel ischemic/degenerative changes. Mild cerebral and cerebellar atrophy. No intra- or extra-axial hemorrhage. No intracranial mass or mass effect. No hydrocephalus. Basal cisterns are patent. Bones/joints: Unremarkable. No discrete lytic or blastic abnormalities. Vasculature: Atherosclerotic disease. Sinuses: Unremarkable as visualized. Clear. Mastoid air cells: Unremarkable. Clear. Orbits: Visualized globes, extraocular muscles, optic nerves and retrobulbar fat appear unremarkable. CT/Brain/Head without Contrast IMPRESSION: No acute findings in the head/brain. ASSESSMENT: INCIDENTAL report - The findings in this report are either known or are not significant. Electronically Signed: Cuong Ramirez MD at 23:10 EDT Tel , Service support ,
[2021-07-22 22:22] VITALS: TEMP 38.2; O2SAT 96
[2021-07-22 22:23] VITALS: BP 144/69; PULSE 100; RESP 26; TEMP 38.2; O2SAT 96
--- NOTE | 2021-07-22 22:52 | EX.ED.DYSGE1 ---
HPI History of Present Illness Chief Complaint: Alt LOC Informant: patient, family and EMS Narrative Narrative: Patient is a 80-year-old male with complex medical history presenting from home via EMS after he was found laying longterm off the bed. Apparently patient been there all day. Patient was discharged from rehab 1 week ago and had a fall after dialysis 3 days ago. EMS came to evaluate him but he refused transport. Daughter found him today and patient not complaining of pain but is complain of generalized weakness. On my evaluation he is complaining of some right shoulder pain as well. He had dialysis yesterday. Patient does dialysis Saturday and Saturday. Patient was hypoxic for EMS and 72% on room air. He was placed on nonrebreather with improvement. He was also febrile with a fever of 102.7 for EMS and was given 500 mg of Tylenol in route. PFSH PFS Medical History MOODY (acute kidney injury) Anemia Asthma Atrial fibrillation Benign essential HTN Brain aneurysm Chronic renal failure, stage 5 Colon polyps COPD (chronic obstructive pulmonary disease) CVA (cerebral vascular accident) Hepatitis C History of GI bleed PVD (peripheral vascular disease) Sleep apnea Tobacco use disorder Type II diabetes mellitus, uncontrolled Home Medications atorvastatin 10 mg PO QHS 05/05/19 [History Last Taken 06/29/21 21:00] mycophenolate mofetil 500 mg PO BID 09/06/20 [History Last Taken 06/29/21] calcium acetate(phosphat bind) 667 mg capsule 2,001 mg PO TIDCM 11/03/20 [History Last Taken 06/29/21 17:00] ergocalciferol (vitamin D2) 1,250 mcg (50,000 unit) capsule 1,250 mcg PO QMONTH 11/03/20 [History Last Taken 06/14/21] Lokelma 5 g PO DAILY 07/01/21 [History Last Taken 06/29/21] Nephro-Lola 1 tab PO DAILY 07/01/21 [History Last Taken 06/29/21 17:00] Allergy/AdvReac Type Severity Reaction Status Date / Time varenicline tartrate Allergy makes me Verified 07/22/21 22:23 [From Chantix] loyd oseguera Family History Mother CVA (cerebral vascular accident) Diabetes Hypertension Father Colon cancer Diabetes Brother Diabetes Surgical History history insertion dialysis catheter (~11/04/20) History of cataract extraction History of colectomy History of colonoscopy (~06/2020) History of surgery on left wrist History of vein stripping Social History Smoking Status: Current every day smoker tobacco type: cigarettes ROS ROS ED Constitutional Constitutional ED: Reports chills and fever(s) Eyes Eyes: Denies change in vision ENT ENT ED: Denies sore throat Cardiovascular Cardiovascular: Denies chest pain or palpitations Respiratory/Chest Respiratory/Chest: Reports cough; Denies dyspnea Gastrointestinal Gastrointestinal: Denies abdominal pain, nausea or vomiting Musculoskeletal Musculoskeletal: Reports arthralgias; Denies myalgias Integumentary Denies rash Neurologic Neurologic: Reports weakness; Denies headache(s) Psychiatric Psychiatric: Denies depression EXAM Physical Exam Const Vital Signs: 07/22/21 22:18 07/22/21 22:22 07/22/21 22:23 Temperature 100.7 F H 100.7 F H 100.7 F H Temperature Source Oral Oral Oral Pulse Rate 102 H 100 Respiratory Rate 33 H 26 H Respiratory Effort Respiratory Pattern Blood Pressure 144/69 H 144/69 H Blood Pressure Mean 94 94 Pulse Ox 96 96 96 Oxygen Delivery Method Nasal Cannula Nasal Cannula Nasal Cannula Oxygen Flow Rate (L/min) 4 4 4 07/22/21 22:27 07/22/21 23:22 07/23/21 00:00 Temperature 99 F 99.3 F H Temperature Source Oral Oral Pulse Rate 81 81 Respiratory Rate 22 H 29 H Respiratory Effort Normal Respiratory Pattern Tachypnea Blood Pressure 134/71 H 132/76 H Blood Pressure Mean 92 94 Pulse Ox 97 96 Oxygen Delivery Method Nasal Cannula Nasal Cannula Oxygen Flow Rate (L/min) 2.5 2.5 Positive cachectic Constitutional Narrative: Chronically ill-appearing General Appearance ED: cachectic Nutritional Appearance: cachectic HEENT Reports dry mucous membranes Mouth ED: Yes dry mucous membranes Mouth: dry mucous membranes Eyes PERRL and EOMs intact bilaterally Neck supple and no JVD Chest Wall inspection of chest normal Resp normal respiratory effort Resp Narrative: Coarse breath sounds throughout, diminished at the bases Cardio regular rhythm and no murmurs Rate: tachycardic GI normal to inspection, nondistended, normoactive bowel sounds and non-tender Extremity normal to inspection Extremity Narrative: Right shoulder diffusely, no joint deformity. Range of motion preserved. Forearm with palpable thrill. General Extremety ED: Yes tenderness; Negative for edema General Extremity: Negative for edema Neuro oriented x3 Sensorium / Orientation: alert Motor Exam: general weakness Psych mental status grossly normal Skin no rashes or lesions noted Skin Narrative: Scattered ecchymosis on left shoulder MDM MDM MDM Narrative Medical decision making narrative: Patient is evaluated for acute hypoxia and generalized weakness. He is also febrile. Clinically suspect he has pneumonia. Covid test is negative. He was given Tylenol in route and his fever does seem to be improving. He is requiring submental oxygen. Patient clinically appears dehydrated. His CBC is remarkable for leukocytosis and chronic anemia. Patient's CMP does show a transaminitis as well as consistent with end-stage kidney disease. His potassium is normal and he does not require emergent dialysis. Patient has a markedly elevated high sensitive troponin of 1678. He is not having any chest pain. I did discuss with cardiology on-call who at this time felt like this was more of a strain pattern and did not think heparin drip was indicated. Patient is given aspirin in the ER. He is admitted to hospitalist service for further management of his elevated troponin, hypoxia and suspected pneumonia. Lab Data Attestation: I reviewed the patient's lab results. Labs: Laboratory Results - last 24 hr 07/22/21 07/22/21 07/22/21 22:35 22:35 22:35 WBC Cancelled Corrected WBC Cancelled RBC Cancelled Hgb Cancelled Hct Cancelled MCV Cancelled MCH Cancelled MCHC Cancelled RDW Std Deviation Cancelled RDW Coeff of Mihaela Cancelled Plt Count Cancelled MPV Cancelled Immature Gran % (Auto) Cancelled Neut % (Auto) Cancelled Lymph % (Auto) Cancelled Gulf % (Auto) Cancelled Eos % (Auto) Cancelled Baso % (Auto) Cancelled Absolute Neuts (auto) Cancelled Absolute Lymphs (auto) Cancelled Total Counted Cancelled Neutrophils % (Manual) Cancelled Band Neutrophils % Cancelled Lymphocytes % (Manual) Cancelled Monocytes % (Manual) Cancelled Eosinophils % (Manual) Cancelled Basophils % (Manual) Cancelled Metamyelocytes % Cancelled Myelocytes % Cancelled Promyelocytes % Cancelled Blast Cells % Cancelled Plasma Cell % (Manual) Cancelled Other Cells % Cancelled Nucleated RBC % Cancelled Nucleated RBCs/100 WBC Cancelled Differential Comment Cancelled Diff Path Review Cancelled Hypersegmented Neuts Cancelled Atypical Lymphocytes Cancelled Reactive Lymphocytes Cancelled Smudge Cells Cancelled Toxic Granulation Cancelled Toxic Vacuolation Cancelled Dohle Bodies Cancelled Vaishali Rods Cancelled Platelet Estimate Cancelled Plt Morphology Comment Cancelled RBC Morphology Cancelled Polychromasia Cancelled Hypochromasia Cancelled Poikilocytosis Cancelled Basophilic Stippling Cancelled Anisocytosis Cancelled Microcytosis Cancelled Macrocytosis Cancelled Spherocytes Cancelled Sickle Cells Cancelled Target Cells Cancelled Tear Drop Cells Cancelled Ovalocytes Cancelled Stomatocytes Cancelled Joseph-Buell Bodies Cancelled Casi Cells Cancelled Bite Cells Cancelled Crenated Cell Cancelled Acanthocytes (Spur) Cancelled Rouleaux Cancelled Schistocytes Cancelled PT 19.4 H INR 1.7 APTT 33.6 Sodium 135 L Potassium 4.8 Chloride 91 L Carbon Dioxide 28.0 Anion Gap 16 H BUN 45 H Creatinine 5.77 H Estim Creat Clear Calc 8.58 Est GFR (MDRD) Af Amer 12 L Est GFR (MDRD) Non-Af 10 L BUN/Creatinine Ratio 7.8 L Glucose 285 H Lactic Acid Calcium 8.4 L Total Bilirubin 0.80 AST 304 H ALT 236 H Alkaline Phosphatase 81 Total Creatine Kinase 314 H Troponin I High Sens 1678 H* Total Protein 6.7 Albumin 2.9 L Globulin 3.8 Albumin/Globulin Ratio 0.8 L 07/22/21 07/22/21 23:05 23:05 WBC 17.5 H Corrected WBC RBC 2.77 L Hgb 9.3 L Hct 28.8 L MCV 104.0 H MCH 33.6 H MCHC 32.3 RDW Std Deviation 63.5 H RDW Coeff of Mihaela 16.8 H Plt Count 227 MPV 10.4 Immature Gran % (Auto) 2.600 H Neut % (Auto) 90.8 H Lymph % (Auto) 1.8 L Gulf % (Auto) 4.7 Eos % (Auto) 0.0 Baso % (Auto) 0.1 Absolute Neuts (auto) 15.9 H Absolute Lymphs (auto) 0.31 L Total Counted Neutrophils % (Manual) Band Neutrophils % Lymphocytes % (Manual) Monocytes % (Manual) Eosinophils % (Manual) Basophils % (Manual) Metamyelocytes % Myelocytes % Promyelocytes % Blast Cells % Plasma Cell % (Manual) Other Cells % Nucleated RBC % 0.1 Nucleated RBCs/100 WBC Differential Comment Diff Path Review Hypersegmented Neuts Atypical Lymphocytes Reactive Lymphocytes Smudge Cells Toxic Granulation Toxic Vacuolation Dohle Bodies Vaishali Rods Platelet Estimate Plt Morphology Comment RBC Morphology Polychromasia Hypochromasia Poikilocytosis Basophilic Stippling Anisocytosis Microcytosis Macrocytosis Spherocytes Sickle Cells Target Cells Tear Drop Cells Ovalocytes Stomatocytes Joseph-Buell Bodies [place] Cells Bite Cells Crenated Cell Acanthocytes (Spur) Rouleaux Schistocytes PT INR APTT Sodium Potassium Chloride Carbon Dioxide Anion Gap BUN Creatinine Estim Creat Clear Calc Est GFR (MDRD) Af Amer Est GFR (MDRD) Non-Af BUN/Creatinine Ratio Glucose Lactic Acid 2.1 H* Calcium Total Bilirubin AST ALT Alkaline Phosphatase Total Creatine Kinase Troponin I High Sens Total Protein Albumin Globulin Albumin/Globulin Ratio Radiography Chest X-Ray - ED: 1 View, Read by ED Physician, Read by Radiologist, Right Infiltrate and Left Infiltrate Diagnostic Testing: Clinical Impression(s) from Imaging Studies Chest X-Ray 07/22/21 22:20 IMPRESSION: 1. Infiltrates throughout both lungs may be due to edema or pneumonia. 2. Advanced degenerative changes both shoulders. ASSESSMENT: ABNORMAL report - There are abnormal findings in this report which may be related or unrelated to the reason for the exam. Electronically Signed: Cuong Ramirez MD at 23:07 EDT Tel , Service support , Humerus X-Ray 07/22/21 22:20 IMPRESSION: Advanced degenerative changes right shoulder. ASSESSMENT: ABNORMAL report - There are abnormal findings in this report which may be related or unrelated to the reason for the exam. Electronically Signed: Cuong Ramirez MD at 23:06 EDT Tel , Service support , Brain CT 07/22/21 22:21 IMPRESSION: No acute findings in the head/brain. ASSESSMENT: INCIDENTAL report - The findings in this report are either known or are not significant. Electronically Signed: Cuong Ramirez MD at 23:10 EDT Tel , Service support , Rhythm Strip Rhythm Strip: Sinus Rhythm Rate: 98 Ectopy: None EKG Initial EKG: Attestation: I personally reviewed and interpreted this EKG as follows: Interpretation: Sinus Rhythm Comments: Normal sinus rhythm rate of 98 Normal axis Prolonged QTC at [address] segment abnormalities No ACS noted Discharge Plan Dx/Rx/DC Orders Clinical Impression: Febrile illness, acute, Metabolic encephalopathy, Multifocal pneumonia, NSTEMI, initial episode of care, Acute respiratory failure with hypoxia, Leukocytosis, Anemia in chronic kidney disease (CKD) Disposition Disposition: Acute Care Hospital [facility] Discharge Date/Time: 07/23/21 01:08
[2021-07-22 23:01] LABS: International Normalized Ratio 1.7; Prothrombin Time (Protime)PT. 19.4 SECONDS (11.7-14.9)
[2021-07-22 23:02] LABS: Partial Thromboplast Time 33.6 Seconds (24.1-36.2)
[2021-07-22 23:22] VITALS: BP 134/71; PULSE 81; RESP 22; TEMP 37.2; O2SAT 97
[2021-07-22 23:25] LABS: ALB/GLOB Ratio 0.8 RATIO (0.9-2.4); AST(SGOT) 304 U/L (15-37); Alanine Aminotransfer ALT/SGPT 236 U/L (16-61); Albumin, Serum 2.9 g/dL (3.2-5.0); Alkaline Phosphatase 81 U/L (45-117); Anion Gap 16 (5-15); BUN 45 mg/dL (7-18); BUN/Creat Ratio 7.8 RATIO (10-20); CPK Total, Creatine Kinase 314 U/L (39-308); Calcium,Total 8.4 mg/dL (8.5-10.1); Chloride 91 mmol/L (98-107); Creatinine, Serum 5.77 mg/dL (0.70-1.30); EST Glomerular Filtration Rate 10 mL/min (>60); Est Glom Filt Rate - Afr Amer 12 mL/min (>60); Estimated Creatinine Clearance 8.58 ml/min; Globulin 3.8 g/dL (2.2-4.2); Glucose 285 mg/dL (74-106); Potassium 4.8 mmol/L (3.5-5.1); Protein, Total 6.7 g/dL (6.4-8.2); Sodium Level 135 mmol/L (136-145); Troponin-I HS 1678 pg/mL (3.0-78.0)
[2021-07-23] VITALS (19 sets, daily range): BP systolic 132–175; BP diastolic 61–79; PULSE 72–137; RESP 18–29; TEMP 36.6–37.4; O2SAT 92–96; BMI 18.1
[2021-07-23 00:18] LABS: Lactic Acid 2.1 mmol/L (0.4-1.9)
--- NOTE | 2021-07-23 00:28 | ECHOD_ITS ---
Version 2 Reason For Study: CHF Procedure This was a 2D Doppler, Color Flow transthoracic echocardiogram. Exam performed portable in patient room. Left Ventricle Normal LV size. The estimated ejection fraction is 37 %. Normal diastology for age. Stage 1 diastolic dysfunction. There is moderate global hypokinesis of the left ventricle. Right Ventricle Normal RV size. Normal systolic function. Mitral Valve Normal mitral valve. Mild (1+) eccentric mitral valve insufficiency. Tricuspid Valve Normal tricuspid valve. Mild (1+) tricuspid valve insufficiency. Pulmonary artery systolic pressure is 46 mmHg. Aortic Valve Trisinus/trileaflet aortic valve. Moderate focal aortic valve calcification. Trivial aortic valve insufficiency. Pulmonic Valve Normal pulmonic valve. Great Vessels Normal aortic root. The pulmonary artery is normal size. Normal inferior vena cava. Pericardium/Pleural Small pericardial effusion. Moderate size left pleural effusion. MMode/2D Measurements & Calculations LVIDd: 5.0 cm IVSd: 0.99 cm LA dimension: 3.8 cm LVIDs: 4.3 cm LVPWd: 1.2 cm RVDd: 3.3 cm FS: 13.9 % LAV(MOD-bp): 67.0 ml LA A4 area: 17.4 cm2 RA A4 area: 15.3 cm2 LAV(MOD-bp) Indexed: 39.7 ml/m2 LAV(MOD-sp2): 89.3 ml LAV(MOD-sp4): 43.6 ml Time Measurements MV dec time: 0.14 sec Doppler Measurements & Calculations MV E max avelino: 106.8 cm/sec Lat Peak E' Avelino: 7.5 cm/sec Med Peak E' Avelino: 4.5 cm/sec MV A max avelino: 109.8 cm/sec E/E' lat: 14.3 E/E' med: 23.6 MV E/A: 0.97 MV V2 max: 112.9 cm/sec MV P1/2t max avelino: 95.1 cm/sec Ao V2 max: 137.2 cm/sec MV max P.1 mmHg MV P1/2t: 65.3 msec Ao max P.5 mmHg MV V2 mean: 64.3 cm/sec MV mean P.9 mmHg MV dec slope: 426.3 cm/sec2 MV V2 VTI: 24.4 cm MVA(P1/2t): 3.4 cm2 LV V1 max: 77.0 cm/sec MR max avelino: 553.3 cm/sec PA V2 max: 73.8 cm/sec LV V1 max P.4 mmHg MR max P.4 mmHg MR mean avelino: 396.7 cm/sec MR mean P.8 mmHg MR VTI: 178.2 cm TR max avelino: 325.2 cm/sec TR max P.3 mmHg ECHO/Echo Complete Interpretation Summary Normal LV size. The estimated ejection fraction is 37 %. There is moderate global hypokinesis of the left ventricle. Normal diastology for age. Small pericardial effusion. Moderate focal aortic valve calcification. Stage 1 diastolic dysfunction. Moderate size left pleural effusion. Ordering Physician: Kaley Hamilton Referring Physician: Jai Desouza Performed By: Alejandro Way RCS
--- NOTE | 2021-07-23 00:29 | PCM.HP.STD ---
HPI - General General Date of Admission: 07/23/21 Date of Service: 07/23/21 Chief Complaint: generalized weakness/Encephalopathy HPI Narrative ABEL SOLIS, is a 80 M who presented to the emergency department at [facility] on 07/22/2021 with some altered mental status and hypoxia. The patient's daughter found him lying skilled nursing off the bed this afternoon. The patient had evidently been there all day. He states he had really eating all day and his appetite has been poor. 3 days ago he fell after dialysis and the EMS came to evaluate him but he refused transport at that time. He had a recent hospitalization here from 06/30/2021 to 07/01/2021 and was discharged to [facility] for rehab and was discharged from [facility] approximately 1 week ago to home. He lives independently but his daughter checks in on him frequently. At this time he is complaining of generalized weakness, malaise, mild right shoulder pain from his fall, and decreased appetite. EMS found him to be hypoxic at 72% on room air and he was placed on a nonrebreather by them with improvement. He is currently on 3 L nasal cannula. His signs in the emergency department show a T-max of 100.7 but for the squad on their arrival his temp was 102.7 and Tylenol was given at that time. His heart rate and blood pressures appear to be at baseline he is mildly tachypneic with respiratory rates anywhere from 22-33 and he is currently requiring 3 L nasal cannula and has oxygen saturations of 96 to 97% with this. His CBC shows a leukocytosis with a white count of 17.5, and a significant left shift with 90.8% neutrophils. His coags are mildly elevated with an INR of 1.5. The patient is not on Coumadin at baseline but I suspect this may be nutritional in nature. His BMP shows a sodium of 135 which is approximately his baseline but he has an elevated anion gap at 16. His BUN and creatinine are 45 and 5.77 respectively. The patient is on dialysis at baseline on Saturday and Saturday. His glucose was 285 but he is not taking any hormone oral agents. His lactic acid was 2.1. His bilirubin is normal but his AST and ALT show significant elevation when compared to baseline. AST is 304 and ALT is 236. CK was obtained and was 314. A troponin was obtained and was found to be elevated at 1678. This is markedly elevated compared to a previous troponin he has had with the same renal function. A rapid Covid was negative but his chest x-ray showed patchy bilateral infiltrates versus edema and with his other symptoms I felt it prudent to rule out Covid with a PCR. His EKG showed normal sinus rhythm with evidence of LVH but no ST-T wave elevation. In the emergency department he was given a 500 cc fluid bolus and dosed with Vanco and Zosyn. [facility] Medical History MOODY (acute kidney injury) Anemia Asthma Atrial fibrillation Benign essential HTN Brain aneurysm Chronic renal failure, stage 5 Colon polyps COPD (chronic obstructive pulmonary disease) CVA (cerebral vascular accident) Hepatitis C History of GI bleed PVD (peripheral vascular disease) Sleep apnea Tobacco use disorder Type II diabetes mellitus, uncontrolled Home Medications atorvastatin 10 mg PO QHS 05/05/19 [History Last Taken 06/29/21 21:00] mycophenolate mofetil 500 mg PO BID 09/06/20 [History Last Taken 06/29/21] calcium acetate(phosphat bind) 667 mg capsule 2,001 mg PO TIDCM 11/03/20 [History Last Taken 06/29/21 17:00] ergocalciferol (vitamin D2) 1,250 mcg (50,000 unit) capsule 1,250 mcg PO QMONTH 11/03/20 [History Last Taken 06/14/21] Lokelma 5 g PO DAILY 07/01/21 [History Last Taken 06/29/21] Nephro-Lola 1 tab PO DAILY 07/01/21 [History Last Taken 06/29/21 17:00] Allergy/AdvReac Type Severity Reaction Status Date / Time varenicline tartrate Allergy makes me Verified 07/22/21 22:23 [From Dulce] loyd oseguera Family History Mother CVA (cerebral vascular accident) Diabetes Hypertension Father Colon cancer Diabetes Brother Diabetes Surgical History history insertion dialysis catheter (~11/04/20) History of cataract extraction History of colectomy History of colonoscopy (~06/2020) History of surgery on left wrist History of vein stripping Social History Smoking Status: Current every day smoker tobacco type: cigarettes ROS Constitutional Constitutional: Reports anorexia, chills, fatigue, malaise and weakness; Denies change in weight, fever(s), night sweats or other Eyes Eyes: Denies blurry vision, change in eye color, change in vision, discharge from eye(s), double vision, erythema, eye pain, loss of vision or other ENT HEENT: Denies abnormal hearing, dysphagia, ear pain, epistaxis, headache(s), hearing loss, nasal congestion, nasal discharge, post nasal drip, sinus pressure, sore throat or other Cardiovascular Cardiovascular: Denies chest pain, claudication, dyspnea on exertion, edema, lightheadedness, orthopnea, palpitations, paroxysmal nocturnal dyspnea, rapid heart rate, syncope or other Respiratory/Chest Respiratory/Chest: Reports cough, dyspnea and shortness of breath with exertion Gastrointestinal Gastrointestinal: Denies abdominal pain, coffee ground emesis, constipation, diarrhea, dyspepsia, hematemesis, hematochezia, loose stools, melena, nausea, vomiting or other Genitourinary Genitourinary: Denies burning urination, difficulty urinating, dysuria, hematuria, nocturia, urinary frequency, urinary hesitancy, urinary incontinence, urinary urgency or other Musculoskeletal Musculoskeletal: Reports joint stiffness and myalgias; Denies arthralgias, back pain, joint pain, joint swelling, neck pain or other Neurologic Neurologic: Reports abnormal gait, confusion and paresthesias LLE; Denies abnormal speech, disequilibrium, dizziness, focal weakness, headache(s), numbness, seizure-like activity, seizures, syncope, tingling, tremor(s) or other Psychiatric Psychiatric: Denies anxiety, depression, homicidal ideation, suicidal ideation or other Endocrine Endocrinology: Denies change in body appearance, cold intolerance, excessive sweating, heat intolerance, polydipsia, polyuria or other Hematologic/Lymphatic Hematologic/Lymphatic: Reports anemia; Denies easy bleeding, easy bruising, lymphadenopathy or other Allergic/Immunologic Allergic/Immunologic: Denies rhinitis, hives, eczemia, asthma or other Vital Signs Vital Signs Vital Signs: 07/22/21 22:18 07/22/21 22:22 07/22/21 22:23 Temperature 100.7 F H 100.7 F H 100.7 F H Temperature Source Oral Oral Oral Pulse Rate 102 H 100 Respiratory Rate 33 H 26 H Respiratory Effort Respiratory Pattern Blood Pressure 144/69 H 144/69 H Blood Pressure Mean 94 94 Pulse Ox 96 96 96 Oxygen Delivery Method Nasal Cannula Nasal Cannula Nasal Cannula Oxygen Flow Rate (L/min) 4 4 4 07/22/21 22:27 07/22/21 23:22 07/23/21 00:00 Temperature 99 F 99.3 F H Temperature Source Oral Oral Pulse Rate 81 81 Respiratory Rate 22 H 29 H Respiratory Effort Normal Respiratory Pattern Tachypnea Blood Pressure 134/71 H 132/76 H Blood Pressure Mean 92 94 Pulse Ox 97 96 Oxygen Delivery Method Nasal Cannula Nasal Cannula Oxygen Flow Rate (L/min) 2.5 2.5 07/23/21 00:16 Temperature 99.2 F H Temperature Source Oral Pulse Rate 80 Respiratory Rate 23 H Respiratory Effort Respiratory Pattern Blood Pressure 134/79 H Blood Pressure Mean 97 Pulse Ox 96 Oxygen Delivery Method Nasal Cannula Oxygen Flow Rate (L/min) 2.5 Weight Weight: 57.5 kg Body Mass Index (BMI) 19.3 Physical Exam Const alert and no apparent distress Constitutional Narrative: Hectic elderly white male lying in bed, daughter at bedside, patient alert and oriented to self, month, year, president but confused about present location General Appearance: cooperative HEENT normocephalic and head/scalp atraumatic HEENT Narrative: Mild KOTZEBUE, no thrush, Mallampati 2, fair dentition, dry mucous membranes Eyes PERRL, EOMs intact bilaterally and conjunctivae normal Eyes Narrative: No scleral icterus Neck no lymphadenopathy, supple and no JVD Resp no retractions and no use of accessory muscles Resp Narrative: Diminished with patchy crackles, mild tachypnea no signs of respiratory extremis Auscultation: crackles; Negative for rales, rhonchi or wheezes Cardio regular rate, regular rhythm, S1 normal heart sound, S2 normal heart sound, no murmurs, no rub, no gallops, no clicks and no JVD GI normal to inspection, nondistended, normoactive bowel sounds, soft to palpation, non-tender and non-distended; Negative for hepatosplenomegaly Extremity no clubbing, cyanosis or edema Extremity Narrative: Few healing sores on feet, decreased lean muscle mass Peripheral Pulses: Yes pulses 2+ throughout Skin skin turgor normal, no jaundice, no petechiae and no mottling Neuro CN's II-XII intact bilaterally, moves all extremities and no focal motor deficits Neuro Narrative: Marked generalized weakness Sensorium / Orientation: awake and alert Speech: speech normal Psych affect normal Results Lab / Micro Data Result Diagrams: 07/22/21 23:05 07/22/21 22:35 Labs: Laboratory Results - last 24 hr 07/22/21 22:35: WBC Cancelled, Corrected WBC Cancelled, RBC Cancelled, Hgb Cancelled, Hct Cancelled, MCV Cancelled, MCH Cancelled, MCHC Cancelled, RDW Std Deviation Cancelled, RDW Coeff of Mihaela Cancelled, Plt Count Cancelled, MPV Cancelled, Immature Gran % (Auto) Cancelled, Neut % (Auto) Cancelled, Lymph % (Auto) Cancelled, [place] % (Auto) Cancelled, Eos % (Auto) Cancelled, Baso % (Auto) Cancelled, Absolute Neuts (auto) Cancelled, Absolute Lymphs (auto) Cancelled, Total Counted Cancelled, Neutrophils % (Manual) Cancelled, Band Neutrophils % Cancelled, Lymphocytes % (Manual) Cancelled, Monocytes % (Manual) Cancelled, Eosinophils % (Manual) Cancelled, Basophils % (Manual) Cancelled, Metamyelocytes % Cancelled, Myelocytes % Cancelled, Promyelocytes % Cancelled, Blast Cells % Cancelled, Plasma Cell % (Manual) Cancelled, Other Cells % Cancelled, Nucleated RBC % Cancelled, Nucleated RBCs/100 WBC Cancelled, Differential Comment Cancelled, Diff Path Review Cancelled, Hypersegmented Neuts Cancelled, Atypical Lymphocytes Cancelled, Reactive Lymphocytes Cancelled, Smudge Cells Cancelled, Toxic Granulation Cancelled, Toxic Vacuolation Cancelled, Dohle Bodies Cancelled, Vaishali Rods Cancelled, Platelet Estimate Cancelled, Plt Morphology Comment Cancelled, RBC Morphology Cancelled, Polychromasia Cancelled, Hypochromasia Cancelled, Poikilocytosis Cancelled, Basophilic Stippling Cancelled, Anisocytosis Cancelled, Microcytosis Cancelled, Macrocytosis Cancelled, Spherocytes Cancelled, Sickle Cells Cancelled, Target Cells Cancelled, Tear Drop Cells Cancelled, Ovalocytes Cancelled, Stomatocytes Cancelled, Joseph-Edgard Bodies Cancelled, [place] Cells Cancelled, Bite Cells Cancelled, Crenated Cell Cancelled, Acanthocytes (Spur) Cancelled, Rouleaux Cancelled, Schistocytes Cancelled 07/22/21 22:35: PT 19.4 H, INR 1.7, APTT 33.6 07/22/21 22:35: Sodium 135 L, Potassium 4.8, Chloride 91 L, Carbon Dioxide 28.0, Anion Gap 16 H, BUN 45 H, Creatinine 5.77 H, Estim Creat Clear Calc 8.58, Est GFR (MDRD) Af Amer 12 L, Est GFR (MDRD) Non-Af 10 L, BUN/Creatinine Ratio 7.8 L, Glucose 285 H, Calcium 8.4 L, Total Bilirubin 0.80, AST 304 H, ALT 236 H, Alkaline Phosphatase 81, Total Creatine Kinase 314 H, Troponin I High Sens 1678 H*, Total Protein 6.7, Albumin 2.9 L, Globulin 3.8, Albumin/Globulin Ratio 0.8 L 07/22/21 23:05: Lactic Acid 2.1 H* Micro: Microbiology 07/22/21 22:38 Interface Orders SARS-CoV-2 Antigen (Rapid) - Final Radiology Impression Chest X-Ray 07/22/21 22:20 IMPRESSION: 1. Infiltrates throughout both lungs may be due to edema or pneumonia. 2. Advanced degenerative changes both shoulders. ASSESSMENT: ABNORMAL report - There are abnormal findings in this report which may be related or unrelated to the reason for the exam. Electronically Signed: Cuong Ramirez MD at 23:07 EDT Tel , Service support , Humerus X-Ray 07/22/21 22:20 IMPRESSION: Advanced degenerative changes right shoulder. ASSESSMENT: ABNORMAL report - There are abnormal findings in this report which may be related or unrelated to the reason for the exam. Electronically Signed: Cuong Ramirez MD at 23:06 EDT Tel , Service support , Brain CT 07/22/21 22:21 IMPRESSION: No acute findings in the head/brain. ASSESSMENT: INCIDENTAL report - The findings in this report are either known or are not significant. Electronically Signed: Cuong Ramirez MD at 23:10 EDT Tel , Service support , Assessment & Plan Assessment/Plan (1) Acute respiratory failure with hypoxia: (2) NSTEMI, initial episode of care: (3) Multifocal pneumonia: (4) Weakness: (5) Metabolic encephalopathy: (6) Febrile illness, acute: (7) Leukocytosis: (8) Anemia in chronic kidney disease (CKD): PLAN: Acute hypoxic respiratory failure -Patient does not require oxygen at baseline -Rapid Covid negative, PCR pending -Vanco and Zosyn dose in the emergency department will continue on admission -Check respiratory viral panel -Check Legionella and strep pneumo urine antigens -Check MRSA DNA by PCR -Sputum culture if obtainable -Continue supplemental oxygen as needed to maintain oxygen saturations greater than 92% -Currently requiring 2 to 3 L -If Covid positive will start Decadron Acute febrile illness -Blood cultures pending -Chest x-ray has bilateral patchy infiltrates -As needed Tylenol but monitor closely with transaminitis -Rapid Covid negative/PCR pending Acute NSTEMI -Troponin on admission was 1678 and patient had a normal troponin with a similar serum creatinine on 06/25/2021 -Suspect that he did have an acute cardiac event -Start heparin drip -Full dose aspirin dosed in the emergency department -Baby aspirin daily -Continue home statin -Check lipids -Check hemoglobin A1c -EKG has no findings consistent with acute ischemia -Check echocardiogram with troponin elevation to reassess EF and wall motion -Most recent was from 06/30/2021 and showed an EF of 40 to 45% with mild global hypokinesia, moderate MR, mild to Moderate TR -Consider initiation of beta-angeli if blood pressures remain stable although with current concern for infection I will hold off at this time -Consult cardiology Metabolic encephalopathy -Suspect acute infection and possibly NSTEMI are contributing to the worsening -Per discussion with daughter it sounds like he may be having some memory issues at baseline -Once acute issues resolve if patient is still having memory issues would refer to geriatrics for further evaluation Transaminitis -May be related to cardiac issue -Patient does not have transaminitis at baseline -Continue to monitor -We will continue statin at this time but if these continue to increase may need to discontinue Anion gap metabolic acidosis -Etiology is unclear although I suspect it is related to his kidney injury, mild lactic acidosis of 2.1 -Serum bicarbonate is approximately his baseline -We will repeat BMP in a.m. to reevaluate Leukocytosis -Suspect related to underlying infection -Monitor for improvement with treatment Chronic anemia secondary to end-stage renal disease -Counts are stable -Monitor daily with heparin drip Chronic hyponatremia -Volume management with dialysis DM-2 -Patient is currently not taking any medication for his diabetes but he has been having elevated blood sugars at home -Check hemoglobin A1c -[facility] End-stage renal disease on HD -MWF HD -Continue home phosphate binder and daily vitamin -Consult Dr. Hamilton for assistance Hyperlipidemia -Continue atorvastatin -Monitor closely with transaminitis and discontinue if liver enzymes continue to rise Severe malnutrition -Diet restrictions per chronic medical conditions -Consult dietitian -Supplementation Debility -Consult PT/OT DVT prophylaxis -Patient is on a heparin drip at this time CODE STATUS -Full code per discussion with patient and daughter in the emergency department upon admission -May need rehab placement at discharge Charges/Coding Visit Charges Inpatient E&M: 63638 Init Hosp L3
[2021-07-23 00:30] LABS: Absolute Lymphocyte Count 0.31 X10^3/uL (0.83-4.51); Absolute Neutrophil Count 15.9 X10^3/uL (2.0-7.7); Basophil# 0.02 X10^3/uL; Basophil% 0.1 % (0-1); Hematocrit 28.8 % (40-54); Hemoglobin 9.3 g/dL (13.0-16.5); Lymphocyte # 0.31 X10^3/ul (0.83-4.51); Lymphocyte % 1.8 % (19-41); Mean Corp Hgb Conc 32.3 g/dL (32-36); Mean Corpuscular Hgb 33.6 pg (27.0-32.0); Mean Platelet Vol. 10.4 fl (6.2-12.0); Monocyte# 0.82 X10^3/uL; Monocyte% 4.7 % (0-10); NRBC Flagged by Analyzer 0.1 % (0-5); Neutrophil # 15.92 X10^3/uL (2.7-7.7); Neutrophil % 90.8 % (47-70); POSITIVE DIFFERENTIAL YES; Platelet Count 227 K/mm3 (150-450); RBC Distribution Width CV 16.8 % (11.6-14.6); RBC Distribution Width SD 63.5 fl (35.1-43.9); Red Blood Count 2.77 M/mm3 (4.6-6.2); White Blood Count 17.5 K/mm3 (4.4-11.0)
[2021-07-23 00:31] LABS: Differential Indicated SCAN CRITERIA MET
[2021-07-23] MEDS: Aspirin 325 MG Tablet PO (01:00)
[2021-07-23 02:41] LABS: Troponin-I HS 3668 pg/mL (3.0-78.0)
[2021-07-23] MEDS: HEPARIN/D5w 25,000 UNITS 25,000 UNITS/250 ML IV.SOLN. 8 UNITS IV (02:47)
[2021-07-23] MEDS: Heparin Injection (Vial) 5,000 UNIT/ML VIAL 4000 UNIT IV (02:50)
[2021-07-23 03:12] LABS: Reflex Lactate? Y
[2021-07-23 03:59] LABS: Absolute Lymphocyte Count 0.63 X10^3/uL (0.83-4.51); Absolute Neutrophil Count 13.3 X10^3/uL (2.0-7.7); Basophil# 0.03 X10^3/uL; Basophil% 0.2 % (0-1); Hematocrit 26.7 % (40-54); Hemoglobin 8.5 g/dL (13.0-16.5); Lymphocyte # 0.63 X10^3/ul (0.83-4.51); Lymphocyte % 4.3 % (19-41); Mean Corp Hgb Conc 31.8 g/dL (32-36); Mean Corpuscular Hgb 32.9 pg (27.0-32.0); Mean Corpuscular Volume 103.5 fL (80-94); Mean Platelet Vol. 10.8 fl (6.2-12.0); Monocyte# 0.71 X10^3/uL; Monocyte% 4.8 % (0-10); NRBC Flagged by Analyzer 0 % (0-5); Neutrophil # 13.29 X10^3/uL (2.7-7.7); Platelet Count 194 K/mm3 (150-450); RBC Distribution Width CV 16.9 % (11.6-14.6); RBC Distribution Width SD 62.9 fl (35.1-43.9); Red Blood Count 2.58 M/mm3 (4.6-6.2); White Blood Count 14.8 K/mm3 (4.4-11.0)
[2021-07-23 04:16] LABS: Lactic Acid 1.9 mmol/L (0.4-1.9)
[2021-07-23 05:27] LABS: Troponin-I HS 4375 pg/mL (3.0-78.0)
[2021-07-23] MEDS: Phytonadione (Vit K1) 5 MG TABLET PO (06:33)
[2021-07-23] MEDS: Acetaminophen 325 MG Tablet 650 MG PO (06:38)
[2021-07-23] MEDS: Insulin Lispro 100 UNIT/ML INSULN.PEN SC ×3 (06:38→15:44)
[2021-07-23 07:06] LABS: Bedside Glucose 187 mg/dL (70-110)
[2021-07-23] MEDS: Calcium Acetate 667 MG Capsule 2001 MG PO ×3 (09:00→17:51)
[2021-07-23] MEDS: Mycophenolate Mofetil 250 MG Capsule 500 MG PO ×2 (09:01→21:45)
[2021-07-23] MEDS: Folic Acid/Vitamin B Comp W-C 1 Capsule 1 CAP PO (09:01)
[2021-07-23 09:04] LABS: Bacteria 0 SEEN /hpf (None Seen); Mucous, Urine 0 SEEN /hpf (<or=2+); Red Blood Cells-Urine 0 SEEN /hpf (0-5); Squamous Epithelial Cells - UA 0 SEEN /hpf (0-5); White Blood Cells 0 SEEN /hpf (0-5)
[2021-07-23 09:06] LABS: BNP,B-Type NATRIURETIC PEPTIDE > 5000.0 pg/mL (0-100); Magnesium 2.6 mg/dL (1.6-2.6); Phosphorus 5.5 mg/dL (2.5-4.9)
[2021-07-23 09:06] LABS: Color, Urine Yellow (Yellow); Glucose, Dipstick 100 mg/dl (Normal); Ketone-Dipstick Negative (Negative); Leukocyte Esterase-Dipstick Negative /ul (Negative); Nitrite-Dipstick Negative (Negative); Occult Blood-Urine Negative /ul (Negative); Protein-Dipstick 100 mg/dl (Negative); Urine Bilirubin Dipstick Negative (Negative); Urine Clarity Sl. Cloudy (Clear); Urine Urobilinogen Normal (Normal)
[2021-07-23 09:10] LABS: ALB/GLOB Ratio 0.7 RATIO (0.9-2.4); AST(SGOT) 438 U/L (15-37); Alanine Aminotransfer ALT/SGPT 354 U/L (16-61); Albumin, Serum 2.6 g/dL (3.2-5.0); Alkaline Phosphatase 74 U/L (45-117); Anion Gap 13 (5-15); BUN 53 mg/dL (7-18); BUN/Creat Ratio 8.6 RATIO (10-20); Chloride 91 mmol/L (98-107); Cholesterol 78 mg/dL (200); Creatinine, Serum 6.18 mg/dL (0.70-1.30); EST Glomerular Filtration Rate 9 mL/min (>60); Est Glom Filt Rate - Afr Amer 11 mL/min (>60); Estimated Creatinine Clearance 7.55 ml/min; Globulin 3.7 g/dL (2.2-4.2); Glucose 202 mg/dL (74-106); High Density Lipoprotein 50 mg/dL; Magnesium 2.6 mg/dL (1.6-2.6); Phosphorus 5.6 mg/dL (2.5-4.9); Potassium 4.6 mmol/L (3.5-5.1); Protein, Total 6.3 g/dL (6.4-8.2); Sodium Level 132 mmol/L (136-145); Triglycerides 67 mg/dL; Troponin-I HS 4545 pg/mL (3.0-78.0); Very Low Density Lipoprotein 13 mg/dL (5-40)
[2021-07-23 09:13] LABS: Partial Thromboplast Time 105.2 Seconds (24.1-36.2)
--- NOTE | 2021-07-23 11:04 | CON.PCM.CA_ITS ---
Assessment & Plan Assessment/Plan (1) Anemia in chronic kidney disease (CKD): (2) Leukocytosis: (3) Acute respiratory failure with hypoxia: (4) DM type 2 (diabetes mellitus, type 2): (5) CVA (cerebral vascular accident): (6) COPD (chronic obstructive pulmonary disease): (7) MOODY (acute kidney injury): (8) NSTEMI, initial episode of care: PLAN: 80-year-old patient admitted through the emergency department at [facility] Evidently patient was found by his daughter, lying in bed, EMS called He was hypoxic with fever and altered mental status Patient recently discharged from rehab center recently Has multiple comorbidities, with hypertension, CVA, diabetes mellitus and end- stage renal disease Patient currently on hemodialysis. Cardiac consult requested to evaluate for the elevated cardiac biomarkers Patient had no symptoms of chest pain. Patient had a history of paroxysmal atrial fibrillation, history of stroke and chronic anemia, history of peripheral vascular disease. Cardiovascular assessment and recommendation; 1. Impression; Elevated cardiac biomarkers is likely type II myocardial infarction with demand myocardial ischemia secondary to the hypoxia, I reviewed the current medication as well as his current lab and residential monitor We will continue medical therapy 2. Echocardiogram to evaluate his LV function 3. Will follow-up clinically and discuss further cardiac care plan. HPI Consult Data Date of Consult: 07/23/21 HPI Narrative Reason for Consultation: NSTEMI HPI Narrative: ABEL SOLIS, is a 80 M who presents [facility] Medical History MOODY (acute kidney injury) Anemia Asthma Atrial fibrillation Benign essential HTN Brain aneurysm Chronic renal failure, stage 5 Colon polyps COPD (chronic obstructive pulmonary disease) CVA (cerebral vascular accident) Hepatitis C History of GI bleed PVD (peripheral vascular disease) Sleep apnea Tobacco use disorder Type II diabetes mellitus, uncontrolled Home Medications atorvastatin 10 mg PO QHS 05/05/19 [History Last Taken 06/29/21 21:00] mycophenolate mofetil 500 mg PO BID 09/06/20 [History Last Taken 06/29/21] calcium acetate(phosphat bind) 667 mg capsule 2,001 mg PO TIDCM 11/03/20 [History Last Taken 06/29/21 17:00] ergocalciferol (vitamin D2) 1,250 mcg (50,000 unit) capsule 1,250 mcg PO QMONTH 11/03/20 [History Last Taken 06/14/21] Lokelma 5 g PO DAILY 07/01/21 [History Last Taken 06/29/21] Nephro-Lola 1 tab PO DAILY 07/01/21 [History Last Taken 06/29/21 17:00] Allergy/AdvReac Type Severity Reaction Status Date / Time varenicline tartrate Allergy makes me Verified 07/22/21 22:23 [From Chantix] loyd oseguera Family History Mother CVA (cerebral vascular accident) Diabetes Hypertension Father Colon cancer Diabetes Brother Diabetes Surgical History history insertion dialysis catheter (~11/04/20) History of cataract extraction History of colectomy History of colonoscopy (~06/2020) History of surgery on left wrist History of vein stripping Social History Smoking Status: Current every day smoker tobacco type: cigarettes Physical Exam Narrative Patient seen and evaluated today at bedside Sitting out in a chair No symptoms of chest pain reported Cardiovascular examination; case monitor showed underlying normal sinus S1-S2 regular there is no murmur, no gallop or pericardial rub. Chest examination; Mild bilateral basilar rales. Objective Data Vital Signs: Vital Signs Temp Pulse Resp BP Pulse Ox 98.1 F 78 18 137/61 H 92 07/23/21 08:17 07/23/21 08:17 07/23/21 08:17 07/23/21 08:17 07/23/21 08:17 Oxygen Flow Rate (L/min) 3 Oxygen Delivery Method Nasal Cannula Weight: 119 lb 7.849 oz Body Mass Index (BMI) 18.1 Intake & Output: Intake and Output for Last 24 Hours 07/21/21 07/22/21 07/23/21 23:59 23:59 23:59 Intake Total 922 / 922 Balance 922 / 922 Lab / Micro Data Result Diagrams: 07/23/21 03:45 07/23/21 08:36 Labs: Laboratory Results - last 24 hr 07/22/21 22:35: WBC Cancelled, Corrected WBC Cancelled, RBC Cancelled, Hgb Cancelled, Hct Cancelled, MCV Cancelled, MCH Cancelled, MCHC Cancelled, RDW Std Deviation Cancelled, RDW Coeff of Mihaela Cancelled, Plt Count Cancelled, MPV Cancelled, Immature Gran % (Auto) Cancelled, Neut % (Auto) Cancelled, Lymph % (Auto) Cancelled, [place] % (Auto) Cancelled, Eos % (Auto) Cancelled, Baso % (Auto) Cancelled, Absolute Neuts (auto) Cancelled, Absolute Lymphs (auto) Cancelled, Total Counted Cancelled, Neutrophils % (Manual) Cancelled, Band Neutrophils % Cancelled, Lymphocytes % (Manual) Cancelled, Monocytes % (Manual) Cancelled, Eosinophils % (Manual) Cancelled, Basophils % (Manual) Cancelled, Metamyelocytes % Cancelled, Myelocytes % Cancelled, Promyelocytes % Cancelled, Blast Cells % Cancelled, Plasma Cell % (Manual) Cancelled, Other Cells % Cancelled, Nucleated RBC % Cancelled, Nucleated RBCs/100 WBC Cancelled, Differential Comment Cancelled, Diff Path Review Cancelled, Hypersegmented Neuts Cancelled, Atypical Lymphocytes Cancelled, Reactive Lymphocytes Cancelled, Smudge Cells Cancelled, Toxic Granulation Cancelled, Toxic Vacuolation Cancelled, Dohle Bodies Cancelled, Vaishali Rods Cancelled, Platelet Estimate Cancelled, Plt Morphology Comment Cancelled, RBC Morphology Cancelled, Polychromasia Cancelled, Hypochromasia Cancelled, Poikilocytosis Cancelled, Basophilic Stippling Cancelled, Anisocytosis Cancelled, Microcytosis Cancelled, Macrocytosis Cancelled, Spherocytes Cancelled, Sickle Cells Cancelled, Target Cells Cancelled, Tear Drop Cells Cancelled, Ovalocytes Cancelled, Stomatocytes Cancelled, Joseph-[place] Bodies Cancelled, [place] Cells Cancelled, Bite Cells Cancelled, Crenated Cell Cancelled, Acanthocytes (Spur) Cancelled, Rouleaux Cancelled, Schistocytes Cancelled 07/22/21 22:35: PT 19.4 H, INR 1.7, APTT 33.6 07/22/21 22:35: Sodium 135 L, Potassium 4.8, Chloride 91 L, Carbon Dioxide 28.0, Anion Gap 16 H, BUN 45 H, Creatinine 5.77 H, Estim Creat Clear Calc 8.58, Est GFR (MDRD) Af Amer 12 L, Est GFR (MDRD) Non-Af 10 L, BUN/Creatinine Ratio 7.8 L, Glucose 285 H, Calcium 8.4 L, Total Bilirubin 0.80, AST 304 H, ALT 236 H, Alkaline Phosphatase 81, Total Creatine Kinase 314 H, Troponin I High Sens 1678 H*, Total Protein 6.7, Albumin 2.9 L, Globulin 3.8, Albumin/Globulin Ratio 0.8 L 07/22/21 23:05: Lactic Acid 2.1 H* 07/22/21 23:05: WBC 17.5 H, RBC 2.77 L, Hgb 9.3 L, Hct 28.8 L, MCV 104.0 H, MCH 33.6 H, MCHC 32.3, RDW Std Deviation 63.5 H, RDW Coeff of Mihaela 16.8 H, Plt Count 227, MPV 10.4, Immature Gran % (Auto) 2.600 H, Neut % (Auto) 90.8 H, Lymph % (Auto) 1.8 L, [place] % (Auto) 4.7, Eos % (Auto) 0.0, Baso % (Auto) 0.1, Absolute Neuts (auto) 15.9 H, Absolute Lymphs (auto) 0.31 L, Nucleated RBC % 0.1 07/23/21 00:23: COVID-19 (PLACIDO) Not Detected 07/23/21 02:10: Troponin I High Sens 3668 H* 07/23/21 03:45: WBC 14.8 H, RBC 2.58 L, Hgb 8.5 L, Hct 26.7 L, MCV 103.5 H, MCH 32.9 H, MCHC 31.8 L, RDW Std Deviation 62.9 H, RDW Coeff of Mihaela 16.9 H, Plt Count 194, MPV 10.8, Immature Gran % (Auto) 0.700, Neut % (Auto) 90.0 H, Lymph % (Auto) 4.3 L, [place] % (Auto) 4.8, Eos % (Auto) 0.0, Baso % (Auto) 0.2, Absolute Neuts (auto) 13.3 H, Absolute Lymphs (auto) 0.63 L, Nucleated RBC % 0 07/23/21 03:45: Hemoglobin A1c 6.0 H 07/23/21 03:45: Troponin I High Sens 4375 H* 07/23/21 03:45: Lactic Acid 1.9 07/23/21 06:36: POC Glucose 187 H 07/23/21 08:17: Urine Color Yellow, Urine Clarity Sl. Cloudy, Urine pH 8.0, Ur Specific [place] 1.010, Urine Protein 100 H, Urine Glucose (UA) 100 H, Urine Ketones Negative, Urine Occult Blood Negative, Urine Nitrite Negative, Urine Bilirubin Negative, Urine Urobilinogen Normal, Ur Leukocyte Esterase Negative, Urine RBC 0 SEEN, Urine WBC 0 SEEN, Ur Squamous Epith Cells 0 SEEN, Urine Bacteria 0 SEEN, Urine Mucus 0 SEEN 07/23/21 08:36: Sodium 132 L, Potassium 4.6, Chloride 91 L, Carbon Dioxide 28.0, Anion Gap 13, BUN 53 H, Creatinine 6.18 H, Estim Creat Clear Calc 7.55, Est GFR (MDRD) Af Amer 11 L, Est GFR (MDRD) Non-Af 9 L, BUN/Creatinine Ratio 8.6 L, Glucose 202 H, Calcium 8.0 L, Phosphorus 5.6 H, Magnesium 2.6, Total Bilirubin 0.80, AST 438 H, ALT 354 H, Alkaline Phosphatase 74, Troponin I High Sens 4545 H*, Total Protein 6.3 L, Albumin 2.6 L, Globulin 3.7, Albumin/Globulin Ratio 0.7 L, Triglycerides 67, Cholesterol 78, LDL Cholesterol 15, VLDL Cholesterol 13, HDL Cholesterol 50 07/23/21 08:36: APTT 105.2 H* 07/23/21 08:36: Phosphorus 5.5 H, Magnesium 2.6 07/23/21 08:36: B-Natriuretic Peptide > 5000.0 H Micro: Microbiology 07/23/21 05:17 Urine, Clean Catch Legionella Antigen - Final 07/23/21 05:17 Urine, Clean Catch Streptococcus pneumoniae Antigen (M - Final Streptococcus pneumonia Ag 07/23/21 00:23 Mucosa - Nasopharyngeal Respiratory Panel (PCR) - Final 07/22/21 22:38 Interface Orders SARS-CoV-2 Antigen (Rapid) - Final Rhythm Strip Rhythm Strip: Sinus Rhythm Rate: 98 Ectopy: None Cardiology Labs/Tests 07/22/21 22:35: WBC Cancelled, Corrected WBC Cancelled, RBC Cancelled, Hgb Cancelled, Hct Cancelled, MCV Cancelled, MCH Cancelled, MCHC Cancelled, Plt Count Cancelled, MPV Cancelled, Immature Gran % (Auto) Cancelled, Neut % (Auto) Cancelled, Lymph % (Auto) Cancelled, [place] % (Auto) Cancelled, Eos % (Auto) Cancelled, Baso % (Auto) Cancelled, Absolute Neuts (auto) Cancelled, Total Counted Cancelled, Neutrophils % (Manual) Cancelled, Band Neutrophils % Cancelled, Lymphocytes % (Manual) Cancelled, Monocytes % (Manual) Cancelled, Eosinophils % (Manual) Cancelled, Basophils % (Manual) Cancelled, Metamyelocytes % Cancelled, Myelocytes % Cancelled, Promyelocytes % Cancelled, Blast Cells % Cancelled, Plasma Cell % (Manual) Cancelled, Other Cells % Cancelled, Nucleated RBC % Cancelled 07/22/21 22:35: PT 19.4 H, INR 1.7, APTT 33.6 07/22/21 22:35: Sodium 135 L, Potassium 4.8, Chloride 91 L, Carbon Dioxide 28.0, Anion Gap 16 H, BUN 45 H, Creatinine 5.77 H, Est GFR (MDRD) Af Amer 12 L, Est GFR (MDRD) Non-Af 10 L, BUN/Creatinine Ratio 7.8 L, Glucose 285 H, Calcium 8.4 L , Total Bilirubin 0.80 07/22/21 23:05: Lactic Acid 2.1 H* 07/22/21 23:05: WBC 17.5 H, RBC 2.77 L, Hgb 9.3 L, Hct 28.8 L, MCV 104.0 H, MCH 33.6 H, MCHC 32.3, Plt Count 227, MPV 10.4, Immature Gran % (Auto) 2.600 H, Neut % (Auto) 90.8 H, Lymph % (Auto) 1.8 L, [place] % (Auto) 4.7, Eos % (Auto) 0.0, Baso % (Auto) 0.1, Absolute Neuts (auto) 15.9 H, Nucleated RBC % 0.1 07/23/21 03:45: WBC 14.8 H, RBC 2.58 L, Hgb 8.5 L, Hct 26.7 L, MCV 103.5 H, MCH 32.9 H, MCHC 31.8 L, Plt Count 194, MPV 10.8, Immature Gran % (Auto) 0.700, Neut % (Auto) 90.0 H, Lymph % (Auto) 4.3 L, [place] % (Auto) 4.8, Eos % (Auto) 0.0, Baso % (Auto) 0.2, Absolute Neuts (auto) 13.3 H, Nucleated RBC % 0 07/23/21 03:45: Hemoglobin A1c 6.0 H 07/23/21 03:45: Lactic Acid 1.9 07/23/21 08:17: Urine Color Yellow, Urine Clarity Sl. Cloudy, Urine pH 8.0, Ur Specific [place] 1.010, Urine Protein 100 H, Urine Glucose (UA) 100 H, Urine Ketones Negative, Urine Occult Blood Negative, Urine Nitrite Negative, Urine Bilirubin Negative, Urine Urobilinogen Normal, Ur Leukocyte Esterase Negative, Urine RBC 0 SEEN, Urine WBC 0 SEEN 07/23/21 08:36: Sodium 132 L, Potassium 4.6, Chloride 91 L, Carbon Dioxide 28.0, Anion Gap 13, BUN 53 H, Creatinine 6.18 H, Est GFR (MDRD) Af Amer 11 L, Est GFR (MDRD) Non-Af 9 L, BUN/Creatinine Ratio 8.6 L, Glucose 202 H, Calcium 8.0 L, Phosphorus 5.6 H, Magnesium 2.6, Total Bilirubin 0.80, Triglycerides 67, Cholesterol 78, LDL Cholesterol 15, VLDL Cholesterol 13, HDL Cholesterol 50 07/23/21 08:36: APTT 105.2 H* 07/23/21 08:36: Phosphorus 5.5 H, Magnesium 2.6 07/23/21 08:36: B-Natriuretic Peptide > 5000.0 H Rhythm: Normal sinus rhythm EKG: Normal sinus rhythm with LVH Radiography Diagnostic Testing: Radiology Impression Chest X-Ray 07/22/21 22:20 IMPRESSION: 1. Infiltrates throughout both lungs may be due to edema or pneumonia. 2. Advanced degenerative changes both shoulders. ASSESSMENT: ABNORMAL report - There are abnormal findings in this report which may be related or unrelated to the reason for the exam. Electronically Signed: Cuong Ramirez MD at 23:07 EDT Tel , Service support , Humerus X-Ray 07/22/21 22:20 IMPRESSION: Advanced degenerative changes right shoulder. ASSESSMENT: ABNORMAL report - There are abnormal findings in this report which may be related or unrelated to the reason for the exam. Electronically Signed: Cuong Ramirez MD at 23:06 EDT Tel , Service support , Brain CT 07/22/21 22:21 IMPRESSION: No acute findings in the head/brain. ASSESSMENT: INCIDENTAL report - The findings in this report are either known or are not significant. Electronically Signed: Cuong Ramirez MD at 23:10 EDT Tel , Service support ,
[2021-07-23 11:51] LABS: Bedside Glucose 385 mg/dL (70-110)
--- NOTE | 2021-07-23 11:56 | PCM.CONS.R ---
Assessment & Plan Assessment/Plan (1) ESRD (end stage renal disease) on dialysis: PLAN: Arrange dialysis Saturday, Saturday, Saturday. (2) Leukocytosis: PLAN: IV antibiotic therapy (3) Febrile illness, acute: PLAN: Primary (4) Anemia in chronic kidney disease (CKD): PLAN: HUGH therapy with dialysis (5) Metabolic encephalopathy: PLAN: Return to baseline suspect due to infectious cause care management (6) DM type 2 (diabetes mellitus, type 2): (7) Debility: PLAN: Consider return to rehab, PT OT (8) Weakness: PLAN: With weight loss (9) Benign essential HTN: PLAN: Stable (10) Fall: (11) Troponin level elevated: PLAN: Primary care management (12) LFT elevation: PLAN: Follow-up lab HPI Consult Data Date of Consult: 07/23/21 HPI Narrative HPI Narrative: ABEL SOLIS, is a 80 M with ESRD on hemodialysis Saturday, Saturday, Saturday with last dialysis Saturday presented to the emergency room with altered mental status and hypoxia. The patient's daughter found him lying fpc off the bed at home. He admits to falling at home after accidentally kicking his walker and losing his balance. He admits to poor appetite with generalized malaise, weakness and diarrhea. Upon arrival to the ED he had leukocytosis with fever. He has a nonproductive cough. He was recently discharged from [facility] about a week ago after hospitalized 06/30/2021 to 07/01/2021. He lives independently but his daughter checks in on him frequently. EMS found him to be hypoxic at 72% on room air. In the emergency department show a T-max of 100.7 but for the squad on their arrival his temp was 102.7 and Tylenol was given at that time. CBC showed white count of 17.5 AST is 304 and ALT is 236. CK was obtained and was 314. A troponin was obtained and was found to be elevated at 1678. Patient denied any chest pain. Chest x-ray showed patchy bilateral infiltrates versus edema and with his other symptoms I felt it prudent to rule out Covid with a PCR. His EKG showed normal sinus rhythm with evidence of LVH but no ST-T wave elevation. In the emergency department he was given a 500 cc fluid bolus and dosed with Vanco and Zosyn. [facility] Medical History MOODY (acute kidney injury) Anemia Asthma Atrial fibrillation Benign essential HTN Brain aneurysm Chronic renal failure, stage 5 Colon polyps COPD (chronic obstructive pulmonary disease) CVA (cerebral vascular accident) Hepatitis C History of GI bleed PVD (peripheral vascular disease) Sleep apnea Tobacco use disorder Type II diabetes mellitus, uncontrolled Home Medications atorvastatin 10 mg PO QHS 05/05/19 [History Last Taken 06/29/21 21:00] mycophenolate mofetil 500 mg PO BID 09/06/20 [History Last Taken 06/29/21] calcium acetate(phosphat bind) 667 mg capsule 2,001 mg PO TIDCM 11/03/20 [History Last Taken 06/29/21 17:00] ergocalciferol (vitamin D2) 1,250 mcg (50,000 unit) capsule 1,250 mcg PO QMONTH 11/03/20 [History Last Taken 06/14/21] Lokelma 5 g PO DAILY 07/01/21 [History Last Taken 06/29/21] Nephro-Lola 1 tab PO DAILY 07/01/21 [History Last Taken 06/29/21 17:00] Allergy/AdvReac Type Severity Reaction Status Date / Time varenicline tartrate Allergy makes me Verified 07/22/21 22:23 [From Chantix] weiblack, loyd Family History Mother CVA (cerebral vascular accident) Diabetes Hypertension Father Colon cancer Diabetes Brother Diabetes Surgical History history insertion dialysis catheter (~11/04/20) History of cataract extraction History of colectomy History of colonoscopy (~06/2020) History of surgery on left wrist History of vein stripping Social History Smoking Status: Current every day smoker tobacco type: cigarettes ROS Constitutional Constitutional: Reports malaise, weakness and weight loss; Denies chills or fever(s) ENT HEENT: Denies nasal congestion Cardiovascular Cardiovascular: Reports dyspnea on exertion; Denies chest pain or leg edema Respiratory/Chest Respiratory/Chest: Reports dry cough and dyspnea on exertion Gastrointestinal Gastrointestinal: Reports anorexia and diarrhea; Denies nausea or vomiting Genitourinary Genitourinary: Denies difficulty urinating Musculoskeletal Musculoskeletal: Reports abnormal gait and other Details: Generalized weakness, recent fall at home. Integumentary Integumentary: Reports other Details: Ecchymosis Neurologic Neurologic: Reports weakness Psychiatric Psychiatric: Reports depression; Denies anxiety Endocrine Endocrinology: Reports fatigue Hematologic/Lymphatic Hematologic/Lymphatic: Reports anemia Physical Exam Const alert and oriented x3 Resp no use of accessory muscles Resp Narrative: Faint crackles in the bases Auscultation: diminished lung sounds Cardio regular rate GI non-tender and non-distended Palpation: soft Extremity Extremity Narrative: With [place] left upper arm General Extremity: AV fistula Skin General Skin Exam: ecchymosis Lab / Micro Data Result Diagrams: 07/23/21 03:45 07/23/21 08:36 Labs: Laboratory Results - last 24 hr 07/22/21 22:35: WBC Cancelled, Corrected WBC Cancelled, RBC Cancelled, Hgb Cancelled, Hct Cancelled, MCV Cancelled, MCH Cancelled, MCHC Cancelled, RDW Std Deviation Cancelled, RDW Coeff of Mihaela Cancelled, Plt Count Cancelled, MPV Cancelled, Immature Gran % (Auto) Cancelled, Neut % (Auto) Cancelled, Lymph % (Auto) Cancelled, [place] % (Auto) Cancelled, Eos % (Auto) Cancelled, Baso % (Auto) Cancelled, Absolute Neuts (auto) Cancelled, Absolute Lymphs (auto) Cancelled, Total Counted Cancelled, Neutrophils % (Manual) Cancelled, Band Neutrophils % Cancelled, Lymphocytes % (Manual) Cancelled, Monocytes % (Manual) Cancelled, Eosinophils % (Manual) Cancelled, Basophils % (Manual) Cancelled, Metamyelocytes % Cancelled, Myelocytes % Cancelled, Promyelocytes % Cancelled, Blast Cells % Cancelled, Plasma Cell % (Manual) Cancelled, Other Cells % Cancelled, Nucleated RBC % Cancelled, Nucleated RBCs/100 WBC Cancelled, Differential Comment Cancelled, Diff Path Review Cancelled, Hypersegmented Neuts Cancelled, Atypical Lymphocytes Cancelled, Reactive Lymphocytes Cancelled, Smudge Cells Cancelled, Toxic Granulation Cancelled, Toxic Vacuolation Cancelled, Dohle Bodies Cancelled, Vaishali Rods Cancelled, Platelet Estimate Cancelled, Plt Morphology Comment Cancelled, RBC Morphology Cancelled, Polychromasia Cancelled, Hypochromasia Cancelled, Poikilocytosis Cancelled, Basophilic Stippling Cancelled, Anisocytosis Cancelled, Microcytosis Cancelled, Macrocytosis Cancelled, Spherocytes Cancelled, Sickle Cells Cancelled, Target Cells Cancelled, Tear Drop Cells Cancelled, Ovalocytes Cancelled, Stomatocytes Cancelled, Joseph[place] Bodies Cancelled, [place] Cells Cancelled, Bite Cells Cancelled, Crenated Cell Cancelled, Acanthocytes (Spur) Cancelled, Rouleaux Cancelled, Schistocytes Cancelled 07/22/21 22:35: PT 19.4 H, INR 1.7, APTT 33.6 07/22/21 22:35: Sodium 135 L, Potassium 4.8, Chloride 91 L, Carbon Dioxide 28.0, Anion Gap 16 H, BUN 45 H, Creatinine 5.77 H, Estim Creat Clear Calc 8.58, Est GFR (MDRD) Af Amer 12 L, Est GFR (MDRD) Non-Af 10 L, BUN/Creatinine Ratio 7.8 L, Glucose 285 H, Calcium 8.4 L, Total Bilirubin 0.80, AST 304 H, ALT 236 H, Alkaline Phosphatase 81, Total Creatine Kinase 314 H, Troponin I High Sens 1678 H*, Total Protein 6.7, Albumin 2.9 L, Globulin 3.8, Albumin/Globulin Ratio 0.8 L 07/22/21 23:05: Lactic Acid 2.1 H* 07/22/21 23:05: WBC 17.5 H, RBC 2.77 L, Hgb 9.3 L, Hct 28.8 L, MCV 104.0 H, MCH 33.6 H, MCHC 32.3, RDW Std Deviation 63.5 H, RDW Coeff of Mihaela 16.8 H, Plt Count 227, MPV 10.4, Immature Gran % (Auto) 2.600 H, Neut % (Auto) 90.8 H, Lymph % (Auto) 1.8 L, [place] % (Auto) 4.7, Eos % (Auto) 0.0, Baso % (Auto) 0.1, Absolute Neuts (auto) 15.9 H, Absolute Lymphs (auto) 0.31 L, Nucleated RBC % 0.1 07/23/21 00:23: COVID-19 (PLACIDO) Not Detected 07/23/21 02:10: Troponin I High Sens 3668 H* 07/23/21 03:45: WBC 14.8 H, RBC 2.58 L, Hgb 8.5 L, Hct 26.7 L, MCV 103.5 H, MCH 32.9 H, MCHC 31.8 L, RDW Std Deviation 62.9 H, RDW Coeff of Mihaela 16.9 H, Plt Count 194, MPV 10.8, Immature Gran % (Auto) 0.700, Neut % (Auto) 90.0 H, Lymph % (Auto) 4.3 L, [place] % (Auto) 4.8, Eos % (Auto) 0.0, Baso % (Auto) 0.2, Absolute Neuts (auto) 13.3 H, Absolute Lymphs (auto) 0.63 L, Nucleated RBC % 0 07/23/21 03:45: Hemoglobin A1c 6.0 H 07/23/21 03:45: Troponin I High Sens 4375 H* 07/23/21 03:45: Lactic Acid 1.9 07/23/21 06:36: POC Glucose 187 H 07/23/21 08:17: Urine Color Yellow, Urine Clarity Sl. Cloudy, Urine pH 8.0, Ur Specific [place] 1.010, Urine Protein 100 H, Urine Glucose (UA) 100 H, Urine Ketones Negative, Urine Occult Blood Negative, Urine Nitrite Negative, Urine Bilirubin Negative, Urine Urobilinogen Normal, Ur Leukocyte Esterase Negative, Urine RBC 0 SEEN, Urine WBC 0 SEEN, Ur Squamous Epith Cells 0 SEEN, Urine Bacteria 0 SEEN, Urine Mucus 0 SEEN 07/23/21 08:36: Sodium 132 L, Potassium 4.6, Chloride 91 L, Carbon Dioxide 28.0, Anion Gap 13, BUN 53 H, Creatinine 6.18 H, Estim Creat Clear Calc 7.55, Est GFR (MDRD) Af Amer 11 L, Est GFR (MDRD) Non-Af 9 L, BUN/Creatinine Ratio 8.6 L, Glucose 202 H, Calcium 8.0 L, Phosphorus 5.6 H, Magnesium 2.6, Total Bilirubin 0.80, AST 438 H, ALT 354 H, Alkaline Phosphatase 74, Troponin I High Sens 4545 H*, Total Protein 6.3 L, Albumin 2.6 L, Globulin 3.7, Albumin/Globulin Ratio 0.7 L, Triglycerides 67, Cholesterol 78, LDL Cholesterol 15, VLDL Cholesterol 13, HDL Cholesterol 50 07/23/21 08:36: APTT 105.2 H* 07/23/21 08:36: Phosphorus 5.5 H, Magnesium 2.6 07/23/21 08:36: B-Natriuretic Peptide > 5000.0 H 07/23/21 11:29: POC Glucose 385 H Micro: Microbiology 07/23/21 05:17 Urine, Clean Catch Legionella Antigen - Final 07/23/21 05:17 Urine, Clean Catch Streptococcus pneumoniae Antigen (M - Final Streptococcus pneumonia Ag 07/23/21 00:23 Mucosa - Nasopharyngeal Respiratory Panel (PCR) - Final 07/22/21 22:38 Interface Orders SARS-CoV-2 Antigen (Rapid) - Final Rhythm Strip Rhythm Strip: Sinus Rhythm Rate: 98 Ectopy: None Radiology Impression Chest X-Ray 07/22/21 22:20 IMPRESSION: 1. Infiltrates throughout both lungs may be due to edema or pneumonia. 2. Advanced degenerative changes both shoulders. ASSESSMENT: ABNORMAL report - There are abnormal findings in this report which may be related or unrelated to the reason for the exam. Electronically Signed: Cuong Ramirez MD at 23:07 EDT Tel , Service support , Humerus X-Ray 07/22/21 22:20 IMPRESSION: Advanced degenerative changes right shoulder. ASSESSMENT: ABNORMAL report - There are abnormal findings in this report which may be related or unrelated to the reason for the exam. Electronically Signed: Cuong Ramirez MD at 23:06 EDT Tel , Service support , Brain CT 07/22/21 22:21 IMPRESSION: No acute findings in the head/brain. ASSESSMENT: INCIDENTAL report - The findings in this report are either known or are not significant. Electronically Signed: Cuong Ramirez MD at 23:10 EDT Tel , Service support ,
[2021-07-23] MEDS: Ipratropium/Albuterol Sulfate 3 ML AMPUL.NEB INHALATION ×2 (13:57→19:20)
[2021-07-23 14:46] LABS: M R Staph aureus DNA By PCR Negative (Negative); Probe Check PASS; Specimen Processing Control PASS
--- NOTE | 2021-07-23 15:08 | PCM.PN.HOSP ---
Subjective Subjective The patient was admitted with altered mental status and hypoxia with daughters found him laying mcfp of the bed. Patient is on hemodialysis. Recent hospitalized from 06/30-07/01 to [place] for medical discharged home. T-max 102.7 by squad. Hypoxia 72% on room air. Chest x-ray shows bilateral patchy infiltrates. Troponin elevated. Objective Data Objective Data Vital Signs: Vital Signs Temp Pulse Resp BP Pulse Ox 98.1 F 72 20 H 137/61 H 92 07/23/21 08:17 07/23/21 14:31 07/23/21 14:31 07/23/21 08:17 07/23/21 08:17 Oxygen Flow Rate (L/min) 3 Oxygen Delivery Method Nasal Cannula Weight: 119 lb 8 oz Body Mass Index (BMI) 18.1 Intake & Output: Intake and Output for Last 24 Hours 07/21/21 07/22/21 07/23/21 23:59 23:59 23:59 Intake Total 972 / 972 Balance 972 / 972 Lab / Micro Data Result Diagrams: 07/23/21 03:45 07/23/21 08:36 Labs: Laboratory Results - last 24 hr 07/22/21 22:35: PT 19.4 H, INR 1.7, APTT 33.6 07/22/21 22:35: Sodium 135 L, Potassium 4.8, Chloride 91 L, Carbon Dioxide 28.0, Anion Gap 16 H, BUN 45 H, Creatinine 5.77 H, Estim Creat Clear Calc 8.58, Est GFR (MDRD) Af Amer 12 L, Est GFR (MDRD) Non-Af 10 L, BUN/Creatinine Ratio 7.8 L, Glucose 285 H, Calcium 8.4 L, Total Bilirubin 0.80, AST 304 H, ALT 236 H, Alkaline Phosphatase 81, Total Creatine Kinase 314 H, Troponin I High Sens 1678 H*, Total Protein 6.7, Albumin 2.9 L, Globulin 3.8, Albumin/Globulin Ratio 0.8 L 07/22/21 23:05: Lactic Acid 2.1 H* 07/22/21 23:05: WBC 17.5 H, RBC 2.77 L, Hgb 9.3 L, Hct 28.8 L, MCV 104.0 H, MCH 33.6 H, MCHC 32.3, RDW Std Deviation 63.5 H, RDW Coeff of Mihaela 16.8 H, Plt Count 227, MPV 10.4, Immature Gran % (Auto) 2.600 H, Neut % (Auto) 90.8 H, Lymph % (Auto) 1.8 L, [place] % (Auto) 4.7, Eos % (Auto) 0.0, Baso % (Auto) 0.1, Absolute Neuts (auto) 15.9 H, Absolute Lymphs (auto) 0.31 L, Nucleated RBC % 0.1 07/23/21 00:23: COVID-19 (PLACIDO) Not Detected 07/23/21 02:10: Troponin I High Sens 3668 H* 07/23/21 02:20: MRSA (PCR) Negative 07/23/21 03:45: WBC 14.8 H, RBC 2.58 L, Hgb 8.5 L, Hct 26.7 L, MCV 103.5 H, MCH 32.9 H, MCHC 31.8 L, RDW Std Deviation 62.9 H, RDW Coeff of Mihaela 16.9 H, Plt Count 194, MPV 10.8, Immature Gran % (Auto) 0.700, Neut % (Auto) 90.0 H, Lymph % (Auto) 4.3 L, [place] % (Auto) 4.8, Eos % (Auto) 0.0, Baso % (Auto) 0.2, Absolute Neuts (auto) 13.3 H, Absolute Lymphs (auto) 0.63 L, Nucleated RBC % 0 07/23/21 03:45: Hemoglobin A1c 6.0 H 07/23/21 03:45: Troponin I High Sens 4375 H* 07/23/21 03:45: Lactic Acid 1.9 07/23/21 06:36: POC Glucose 187 H 07/23/21 08:17: Urine Color Yellow, Urine Clarity Sl. Cloudy, Urine pH 8.0, Ur Specific [place] 1.010, Urine Protein 100 H, Urine Glucose (UA) 100 H, Urine Ketones Negative, Urine Occult Blood Negative, Urine Nitrite Negative, Urine Bilirubin Negative, Urine Urobilinogen Normal, Ur Leukocyte Esterase Negative, Urine RBC 0 SEEN, Urine WBC 0 SEEN, Ur Squamous Epith Cells 0 SEEN, Urine Bacteria 0 SEEN, Urine Mucus 0 SEEN 07/23/21 08:36: Sodium 132 L, Potassium 4.6, Chloride 91 L, Carbon Dioxide 28.0, Anion Gap 13, BUN 53 H, Creatinine 6.18 H, Estim Creat Clear Calc 7.55, Est GFR (MDRD) Af Amer 11 L, Est GFR (MDRD) Non-Af 9 L, BUN/Creatinine Ratio 8.6 L, Glucose 202 H, Calcium 8.0 L, Phosphorus 5.6 H, Magnesium 2.6, Total Bilirubin 0.80, AST 438 H, ALT 354 H, Alkaline Phosphatase 74, Troponin I High Sens 4545 H*, Total Protein 6.3 L, Albumin 2.6 L, Globulin 3.7, Albumin/Globulin Ratio 0.7 L, Triglycerides 67, Cholesterol 78, LDL Cholesterol 15, VLDL Cholesterol 13, HDL Cholesterol 50 07/23/21 08:36: APTT 105.2 H* 07/23/21 08:36: Phosphorus 5.5 H, Magnesium 2.6 07/23/21 08:36: B-Natriuretic Peptide > 5000.0 H 07/23/21 11:29: POC Glucose 385 H Micro: Microbiology 07/22/21 22:37 Blood Culture (Wb) - Right Wrist Blood Culture - Preliminary 07/22/21 22:35 Blood Culture (Wb) - Anticubital Right Bacteria Detection (PCR) - Final Staphylococcus aureus 07/22/21 22:35 Blood Culture (Wb) - Anticubital Right Blood Culture - Preliminary 07/23/21 05:17 Urine, Clean Catch Legionella Antigen - Final 07/23/21 05:17 Urine, Clean Catch Streptococcus pneumoniae Antigen (M - Final Streptococcus pneumonia Ag 07/23/21 00:23 Mucosa - Nasopharyngeal Respiratory Panel (PCR) - Final 07/22/21 22:38 Interface Orders SARS-CoV-2 Antigen (Rapid) - Final Radiography Diagnostic Testing: Radiology Impression Chest X-Ray 07/22/21 22:20 IMPRESSION: 1. Infiltrates throughout both lungs may be due to edema or pneumonia. 2. Advanced degenerative changes both shoulders. ASSESSMENT: ABNORMAL report - There are abnormal findings in this report which may be related or unrelated to the reason for the exam. Electronically Signed: Cuong Ramirez MD at 23:07 EDT Tel , Service support , Humerus X-Ray 07/22/21 22:20 IMPRESSION: Advanced degenerative changes right shoulder. ASSESSMENT: ABNORMAL report - There are abnormal findings in this report which may be related or unrelated to the reason for the exam. Electronically Signed: Cuong Ramirez MD at 23:06 EDT Tel , Service support , Brain CT 07/22/21 22:21 IMPRESSION: No acute findings in the head/brain. ASSESSMENT: INCIDENTAL report - The findings in this report are either known or are not significant. Electronically Signed: Cuong Ramirez MD at 23:10 EDT Tel , Service support , Rhythm Strip Rhythm Strip: Sinus Rhythm Rate: 98 Ectopy: None Physical Exam Narrative General: Alert, Oriented x3, Cooperative, fatigue HEENT: Atraumatic, PERRLA, EOMI, Normocephalic Oral: No Gingival or Mucosal Lesions/ Ulcerations Neck: Supple, No JVD, Negative Carotid Bruits Lungs: Dyspnea at rest. Air entry severely diminished in bilateral lung bases. Bilateral fine wheezing and crepitations. Tachypnea Cardiovascular: Regular rate, Regular Rhythm, Normal S1, Normal S2, No murmurs Abdomen: Bowel Sounds Present, Soft, Non Tender, Non-Distended : No renal angle tenderness. No suprapubic tenderness. Extremities: No edema, Capillary Refill Less than 3 Seconds Skin: No rashes, No breakdown Musculoskeletal: No Tenderness to Palpation of Joints or Extremities Neurological: Cranial nerves II-XII grossly intact, DTR 2+/4 and Symmetrical, Neuro grossly intact Psych/Mental Status: Flat affect. Assessment & Plan Assessment/Plan (1) Acute respiratory failure with hypoxia: (2) NSTEMI, initial episode of care: (3) Multifocal pneumonia: (4) Weakness: (5) Metabolic encephalopathy: (6) Febrile illness, acute: (7) Leukocytosis: (8) Anemia in chronic kidney disease (CKD): PLAN: Acute hypoxic respiratory failure related to bilateral pneumonia due to strep pneumoniae and staph aureus bacteremia and possible heart failure from non-STEMI: Patient is admitted in PCU. Preliminary blood culture shows gram-positive and cluster, staph aureus making not detected. Urinary antigens for Streptococcus positive. On oxygen. Covid RT PCR negative. Patient also has transaminitis increased anion gap metabolic acidosis and leukocytosis probably due to infection, -Continue supplemental oxygen as needed to maintain oxygen saturations greater than 92% Acute NSTEMI probably type II LA from increased myocardial demand secondary to hypoxia: Troponin very high. On IV heparin drip. Discussed with the [facility] consultant. 2D echo, lipid profile and A1c tomorrow a.m. Plan for conservative management for now. On baby aspirin, statin, low-dose metoprolol. Most recent was from 06/30/2021 and showed an EF of 40 to 45% with mild global hypokinesia, moderate MR, mild to Moderate TR Metabolic encephalopathy from acute infection and possible non-STEMI. ESRD on hemodialysis on Saturday and Saturday. Parts Consultant Dr. Hamilton is consulted. Severe protein calorie malnutrition: Dietary selected. On Ensure Diabetes mellitus type 2 uncontrolled: Accu-Cheks before meals and at bedtime continue sliding scale. Elevated blood sugar Multiple comorbidities include chronic hyponatremia, dyslipidemia, chronic anemia secondary to end-stage renal disease DVT prophylaxis -Patient is on a heparin drip at this time CODE STATUS: Full code. -May need rehab placement at discharge
[2021-07-23 16:06] LABS: Bedside Glucose 238 mg/dL (70-110)
--- NOTE | 2021-07-23 18:07 | PCM.RX.CS ---
Consult Pharmacy has been consulted to manage selected antiobiotic: Vancomycin Type of Consult: New start Labs: Sodium 132 mmol/L (136-145) L 07/23/21 08:36 Potassium 4.6 mmol/L (3.5-5.1) 07/23/21 08:36 Chloride 91 mmol/L (98-107) L 07/23/21 08:36 Carbon Dioxide 28.0 mmol/L (21.0-32.0) 07/23/21 08:36 Anion Gap 13 (5-15) 07/23/21 08:36 BUN 53 mg/dL (7-18) H 07/23/21 08:36 Creatinine 6.18 mg/dL (0.70-1.30) H 07/23/21 08:36 Est GFR (MDRD) Af Amer 11 mL/min (>60) L 07/23/21 08:36 Est GFR (MDRD) Non-Af 9 mL/min (>60) L 07/23/21 08:36 BUN/Creatinine Ratio 8.6 RATIO (10-20) L 07/23/21 08:36 Glucose 202 mg/dL (74-106) H 07/23/21 08:36 Microbiology: Microbiology 07/22/21 22:37 Blood Culture (Wb) - Right Wrist Blood Culture - Preliminary 07/22/21 22:35 Blood Culture (Wb) - Anticubital Right Bacteria Detection (PCR) - Final Staphylococcus aureus 07/22/21 22:35 Blood Culture (Wb) - Anticubital Right Blood Culture - Preliminary 07/23/21 05:17 Urine, Clean Catch Legionella Antigen - Final 07/23/21 05:17 Urine, Clean Catch Streptococcus pneumoniae Antigen (M - Final Streptococcus pneumonia Ag 07/23/21 00:23 Mucosa - Nasopharyngeal Respiratory Panel (PCR) - Final 07/22/21 22:38 Interface Orders SARS-CoV-2 Antigen (Rapid) - Final Estimated Creatinine Clearance: 7.5mls/min Goal Trough: 15-20 mcg/mL Pharmacy Plan for Drug Dosing: NEW START IV VANCOMYCIN Consulting Physician: Chemo Indication: Goal Trough: 15-20 SrCr: 6.18 CrCl: 7.5 Comments: pt received a 1500mg x1 dose in the ER on 07/23/21 at 0102 Vancomcyin Dose: pt is on a MWF dialysis schedule. next scheduled dose will be on 07/24/21, AFTER dialysis is complete. Pending Level: random level to be drawn 07/26/21 prior to dialysis Pharmacy Service will continue to monitor and adjust dosing as required. Follow-Up Labs: Trough Vancomycin - 07/26/21 at 0600
[2021-07-23] MEDS: Atorvastatin Calcium 10 MG Tablet PO (21:45)
[2021-07-23 22:11] LABS: Bedside Glucose 315 mg/dL (70-110)
[2021-07-23] MEDS: hydrALAZINE 20 MG/ML Vial 5 MG IV (23:31)
[2021-07-24] VITALS (21 sets, daily range): BP systolic 102–174; BP diastolic 62–80; PULSE 76–96; RESP 20–28; TEMP 36.6–37; O2SAT 87–100
[2021-07-24] MEDS: Heparin Injection (Vial) 5,000 UNIT/ML VIAL IV ×3 (00:50→22:36)
[2021-07-24] MEDS: Ipratropium/Albuterol Sulfate 3 ML AMPUL.NEB INHALATION ×4 (01:00→19:44)
[2021-07-24] MEDS: hydrALAZINE 20 MG/ML Vial 5 MG IV (05:16)
[2021-07-24] MEDS: 0.9% Saline Lock 10 ML Syringe IV ×2 (05:20→15:59)
[2021-07-24] MEDS: Insulin Lispro 100 UNIT/ML INSULN.PEN SC ×2 (06:39→16:03)
[2021-07-24 06:45] LABS: Bedside Glucose 278 mg/dL (70-110)
[2021-07-24 06:55] LABS: Absolute Lymphocyte Count 0.55 X10^3/uL (0.83-4.51); Absolute Neutrophil Count 13.6 X10^3/uL (2.0-7.7); Basophil# 0.02 X10^3/uL; Basophil% 0.1 % (0-1); Hematocrit 26.1 % (40-54); Hemoglobin 8.5 g/dL (13.0-16.5); Lymphocyte # 0.55 X10^3/ul (0.83-4.51); Lymphocyte % 3.7 % (19-41); Mean Corp Hgb Conc 32.6 g/dL (32-36); Mean Corpuscular Hgb 32.7 pg (27.0-32.0); Mean Corpuscular Volume 100.4 fL (80-94); Mean Platelet Vol. 11.4 fl (6.2-12.0); Monocyte# 0.74 X10^3/uL; Monocyte% 4.9 % (0-10); NRBC Flagged by Analyzer 0.2 % (0-5); Neutrophil # 13.64 X10^3/uL (2.7-7.7); Neutrophil % 90.8 % (47-70); POSITIVE DIFFERENTIAL YES; Platelet Count 180 K/mm3 (150-450); RBC Distribution Width CV 16.4 % (11.6-14.6); RBC Distribution Width SD 59.9 fl (35.1-43.9)
[2021-07-24 07:08] LABS: Partial Thromboplast Time 54.8 Seconds (24.1-36.2)
[2021-07-24 07:09] LABS: Anion Gap 17 (5-15); BUN 73 mg/dL (7-18); BUN/Creat Ratio 10.1 RATIO (10-20); Calcium,Total 8.3 mg/dL (8.5-10.1); Chloride 84 mmol/L (98-107); Creatinine, Serum 7.25 mg/dL (0.70-1.30); EST Glomerular Filtration Rate 8 mL/min (>60); Est Glom Filt Rate - Afr Amer 9 mL/min (>60); Estimated Creatinine Clearance 6.89 ml/min; Glucose 327 mg/dL (74-106); Magnesium 2.5 mg/dL (1.6-2.6); Potassium 4.2 mmol/L (3.5-5.1); Sodium Level 126 mmol/L (136-145)
[2021-07-24 07:17] LABS: Differential Indicated SCAN CRITERIA MET
[2021-07-24 07:18] LABS: Anisocytosis 1+
--- NOTE | 2021-07-24 07:42 | PCS.PANDOC ---
PANDEMIC DOCUMENTATION INITIATED: Date: 05/29/2021 Time: 190
--- NOTE | 2021-07-24 07:43 | NURSING ---
Dialysis equipment/staff at [facility] to start dialysis
--- NOTE | 2021-07-24 09:20 | PN.RENAL_ITS ---
Subjective Subjective seen on dialysis, still with dry cough, SOB, hypoxic on FM, poor appetite Objective Data Objective Data Vital Signs: Vital Signs Temp Pulse Resp BP Pulse Ox 97.9 F 86 22 H 159/71 H 96 07/24/21 09:11 07/24/21 09:11 07/24/21 09:11 07/24/21 09:11 07/24/21 09:11 Oxygen Flow Rate (L/min) 8 Oxygen Delivery Method Venturi Mask Weight: 58 kg Body Mass Index (BMI) 18.1 Intake & Output: Intake and Output for Last 24 Hours 07/22/21 07/23/21 07/24/21 23:59 23:59 23:59 Intake Total 1004 / 1004 672.2 / 672.2 Balance 1004 / 1004 672.2 / 672.2 Lab / Micro Data Result Diagrams: 07/24/21 06:42 07/24/21 06:42 Labs: Laboratory Results - last 24 hr 07/23/21 02:20: MRSA (PCR) Negative 07/23/21 08:17: Urine Color Yellow, Urine Clarity Sl. Cloudy, Urine pH 8.0, Ur Specific [place] 1.010, Urine Protein 100 H, Urine Glucose (UA) 100 H, Urine Ketones Negative, Urine Occult Blood Negative, Urine Nitrite Negative, Urine Bilirubin Negative, Urine Urobilinogen Normal, Ur Leukocyte Esterase Negative, Urine RBC 0 SEEN, Urine WBC 0 SEEN, Ur Squamous Epith Cells 0 SEEN, Urine Bacteria 0 SEEN, Urine Mucus 0 SEEN 07/23/21 11:29: POC Glucose 385 H 07/23/21 15:43: POC Glucose 238 H 07/23/21 17:00: APTT 47.0 H 07/23/21 21:51: POC Glucose 315 H 07/23/21 23:25: APTT 50.0 H 07/24/21 06:39: POC Glucose 278 H 07/24/21 06:42: WBC 15.0 H, RBC 2.60 L, Hgb 8.5 L, Hct 26.1 L, MCV 100.4 H, MCH 32.7 H, MCHC 32.6, RDW Std Deviation 59.9 H, RDW Coeff of Mihaela 16.4 H, Plt Count 180, MPV 11.4, Immature Gran % (Auto) 0.500, Neut % (Auto) 90.8 H, Lymph % (Auto) 3.7 L, [place] % (Auto) 4.9, Eos % (Auto) 0.0, Baso % (Auto) 0.1, Absolute Neuts (auto) 13.6 H, Absolute Lymphs (auto) 0.55 L, Nucleated RBC % 0.2, Anisocytosis 1+ 07/24/21 06:42: Sodium 126 L, Potassium 4.2, Chloride 84 L, Carbon Dioxide 25.0, Anion Gap 17 H, BUN 73 H, Creatinine 7.25 H, Estim Creat Clear Calc 6.89, Est GFR (MDRD) Af Amer 9 L, Est GFR (MDRD) Non-Af 8 L, BUN/Creatinine Ratio 10.1, Glucose 327 H, Calcium 8.3 L, Magnesium 2.5 07/24/21 06:42: APTT 54.8 H Micro: Microbiology 07/22/21 22:37 Blood Culture (Wb) - Right Wrist Blood Culture - Preliminary Staphylococcus aureus 07/22/21 22:35 Blood Culture (Wb) - Anticubital Right Bacteria Detection (PCR) - Final Staphylococcus aureus 07/22/21 22:35 Blood Culture (Wb) - Anticubital Right Blood Culture - Preliminary Staphylococcus aureus 07/23/21 05:17 Urine, Clean Catch Legionella Antigen - Final 07/23/21 05:17 Urine, Clean Catch Streptococcus pneumoniae Antigen (M - Final Streptococcus pneumonia Ag 07/23/21 00:23 Mucosa - Nasopharyngeal Respiratory Panel (PCR) - Final 07/22/21 22:38 Interface Orders SARS-CoV-2 Antigen (Rapid) - Final Rhythm Strip Rhythm Strip: Sinus Rhythm Rate: 98 Ectopy: None Physical Exam Const alert and oriented x3 Constitutional Narrative: thin, on oxygen General Appearance: cooperative and frail Resp clear to auscultation bilaterally Cardio regular rate GI non-tender and non-distended Auscultation: normoactive bowel sounds Palpation: soft Extremity no clubbing, cyanosis or edema Assessment & Plan Assessment/Plan (1) ESRD (end stage renal disease) on dialysis: PLAN: seen on dialysis, attempt 1L fluid removal (2) Anemia in chronic kidney disease (CKD): PLAN: HUGH on dialysis (3) Leukocytosis: PLAN: iv antibx (4) Troponin level elevated: PLAN: on heparin drip (5) Debility: PLAN: evaluate for ECF (6) DM type 2 (diabetes mellitus, type 2): PLAN: stable (7) Benign essential HTN: PLAN: stable
--- NOTE | 2021-07-24 09:48 | CASEMGMT ---
Pt has HD MWF at [facility]. CM to follow. Carmen BURGESS CM
--- NOTE | 2021-07-24 10:25 | CASEMGMT ---
SW met w/pt, reviewed prior level of function and anticipated discharge plan. PCP: Dr. Desouza Specialists: Dr. Hamilton, nephrology Insurance: [employer] Pharmacy: [facility] by mail, [facility] [place] LNOK: Daughter LW/POA: As per pt, daughter Jovita is POA, he has completed the forms, SW let pt know they are not on file Prior level of function: As per pt, daughter helps with cooking, cleaning, medications, finances, transportation. Pt also has friends who transport pt. Friends or his daughters take pt to dialysis. Pt goes to dialysis M,W,F middle shift with [facility]. Pt is able to use the restroom, can bathe and take care of his personal ADLs. DME/HHC/SNF: Pt was recently in [facility], has a bedside commode, walker and shower chair. Plan: Pt would like to go back to [facility], is stating would like to go snf. He states [facility] would set up transportation for him to go to dialysis. SW asked about pt's financial status, if he needs to apply for Medicaid. Pt does not know, is agreeable to have SW call pt's daughter. SW did leave a list in the room that take pt's insurance, in preferred insurance network, complete with quality and resource use data. SW called pt's daughter, introduced self, role of SW in hospital. 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 Daughter is aware that pt is requesting [facility], but she would rather him go elsewhere. SW let her know the SNF list is in the room, did review the local facilities with her on the phone. She plans to be here this afternoon and will speak w/pt, and will let SW know. She also wants to start the process of pt applying for Medicaid, SW will assist with this as well. SW will continue to follow, will speak w/daughter and pt when daughter is here this afternoon. BASIA Cherry
--- NOTE | 2021-07-24 11:11 | PN.CARD_ITS ---
Subjective Subjective Patient seen and noted today Bedside hemodialysis Symptoms shortness of breath with cough No chest pain Objective Data Vital Signs: Vital Signs Temp Pulse Resp BP Pulse Ox 97.9 F 86 22 H 159/71 H 96 07/24/21 09:11 07/24/21 09:11 07/24/21 09:11 07/24/21 09:11 07/24/21 09:11 Oxygen Flow Rate (L/min) 8 Oxygen Delivery Method Venturi Mask Weight: 127 lb 13.89 oz Body Mass Index (BMI) 18.1 Intake & Output: Intake and Output for Last 24 Hours 07/22/21 07/23/21 07/24/21 23:59 23:59 23:59 Intake Total 1004 / 1004 672.2 / 672.2 Balance 1004 / 1004 672.2 / 672.2 Lab / Micro Data Result Diagrams: 07/24/21 06:42 07/24/21 06:42 Labs: Laboratory Results - last 24 hr 07/23/21 02:20: MRSA (PCR) Negative 07/23/21 11:29: POC Glucose 385 H 07/23/21 15:43: POC Glucose 238 H 07/23/21 17:00: APTT 47.0 H 07/23/21 21:51: POC Glucose 315 H 07/23/21 23:25: APTT 50.0 H 07/24/21 06:39: POC Glucose 278 H 07/24/21 06:42: WBC 15.0 H, RBC 2.60 L, Hgb 8.5 L, Hct 26.1 L, MCV 100.4 H, MCH 32.7 H, MCHC 32.6, RDW Std Deviation 59.9 H, RDW Coeff of Mihaela 16.4 H, Plt Count 180, MPV 11.4, Immature Gran % (Auto) 0.500, Neut % (Auto) 90.8 H, Lymph % (Auto) 3.7 L, [place] % (Auto) 4.9, Eos % (Auto) 0.0, Baso % (Auto) 0.1, Absolute Neuts (auto) 13.6 H, Absolute Lymphs (auto) 0.55 L, Nucleated RBC % 0.2, Anisocytosis 1+ 07/24/21 06:42: Sodium 126 L, Potassium 4.2, Chloride 84 L, Carbon Dioxide 25.0, Anion Gap 17 H, BUN 73 H, Creatinine 7.25 H, Estim Creat Clear Calc 6.89, Est GFR (MDRD) Af Amer 9 L, Est GFR (MDRD) Non-Af 8 L, BUN/Creatinine Ratio 10.1, Glucose 327 H, Calcium 8.3 L, Magnesium 2.5 07/24/21 06:42: APTT 54.8 H Micro: Microbiology 07/23/21 05:17 Urine Catheter - Catheter Urine Culture - Preliminary Culture exhibits no growth. 07/22/21 22:37 Blood Culture (Wb) - Right Wrist Blood Culture - Preliminary Staphylococcus aureus 07/22/21 22:35 Blood Culture (Wb) - Anticubital Right Bacteria Detection (PCR) - Final Staphylococcus aureus 07/22/21 22:35 Blood Culture (Wb) - Anticubital Right Blood Culture - Preliminary Staphylococcus aureus 07/23/21 05:17 Urine, Clean Catch Legionella Antigen - Final 07/23/21 05:17 Urine, Clean Catch Streptococcus pneumoniae Antigen (M - Final Streptococcus pneumonia Ag Rhythm Strip Rhythm Strip: Sinus Rhythm Rate: 98 Ectopy: None Cardiology Labs/Tests 07/23/21 17:00: APTT 47.0 H 07/23/21 23:25: APTT 50.0 H 07/24/21 06:42: WBC 15.0 H, RBC 2.60 L, Hgb 8.5 L, Hct 26.1 L, MCV 100.4 H, MCH 32.7 H, MCHC 32.6, Plt Count 180, MPV 11.4, Immature Gran % (Auto) 0.500, Neut % (Auto) 90.8 H, Lymph % (Auto) 3.7 L, [place] % (Auto) 4.9, Eos % (Auto) 0.0, Baso % (Auto) 0.1, Absolute Neuts (auto) 13.6 H, Nucleated RBC % 0.2 07/24/21 06:42: Sodium 126 L, Potassium 4.2, Chloride 84 L, Carbon Dioxide 25.0, Anion Gap 17 H, BUN 73 H, Creatinine 7.25 H, Est GFR (MDRD) Af Amer 9 L, Est GFR (MDRD) Non-Af 8 L, BUN/Creatinine Ratio 10.1, Glucose 327 H, Calcium 8.3 L, Magnesium 2.5 07/24/21 06:42: APTT 54.8 H Rhythm: Normal sinus rhythm Physical Exam Narrative Patient seen and evaluated at bedside today Alert orientated Still having cough and shortness of breath Review of the cardiac telemetry normal sinus rhythm Cardiovascular examination S1-S2 is regular, no murmur no systolic or diastolic murmur No pericardial rub or gallop rhythm Chest examination minimal basilar rales Examination of the abdomen; No tenderness or abdominal distention. Examination lower extremity; No lower extremity edema, no clubbing or cyanosis. Examination of central nervous system; No focal neurological distribution Assessment & Plan Assessment/Plan (1) ESRD (end stage renal disease) on dialysis: (2) Fall: (3) Anemia in chronic kidney disease (CKD): (4) Leukocytosis: (5) Acute respiratory failure with hypoxia: (6) DM type 2 (diabetes mellitus, type 2): (7) NSTEMI, initial episode of care: PLAN: 80-year-old patient admitted following: Fall at his house, found by his daughter and brought into hospital with EMS Had end-stage renal disease with chronic anemia And had acute hypoxic respiratory failure on oxygen Blood culture showed staph aureus positive with leukocytosis currently on antibiotic treatment Cardiac evaluation and consultation requested because of elevated high sensitive troponin I Patient had no symptoms of chest pain, electrocardiogram showed normal sinus rhythm patient had a history of paroxysmal atrial fibrillation. Currently on treatment with the IV heparin and medical therapy Cardiovascular assessment and plan; 1. Patient will be evaluated further today by echocardiogram 2. We will continue with current treatment 3. Patient has a multiple medical comorbidities, with history of paroxysmal atrial fibrillation, CVA, end-stage renal disease, hemodialysis and chronic anemia. We will review the echocardiogram and discuss further plan
[2021-07-24 12:11] LABS: Bedside Glucose 113 mg/dL (70-110)
[2021-07-24] MEDS: Epoetin Alfa epbx 10,000 UNITS/ML 10000 UNIT IV (12:18)
[2021-07-24] MEDS: Calcium Acetate 667 MG Capsule 2001 MG PO ×2 (12:35→17:13)
[2021-07-24] MEDS: Mycophenolate Mofetil 250 MG Capsule 500 MG PO ×2 (12:35→22:40)
[2021-07-24] MEDS: Folic Acid/Vitamin B Comp W-C 1 Capsule 1 CAP PO (12:35)
--- NOTE | 2021-07-24 12:42 | DIALYSIS ---
Hemodialysis today x 3.25hrs. Pt tolerated tx UF -1000mL removed. Profile B waveform on critline. [place] pulled stasis achieved. Dressings applied Pt stable Report to JENIFER Munroe
[2021-07-24 12:49] LABS: Partial Thromboplast Time 50.9 Seconds (24.1-36.2)
--- NOTE | 2021-07-24 14:32 | PCM.CONS.GEN ---
Assessment & Plan Assessment/Plan (1) ESRD (end stage renal disease) on dialysis: (2) Bacteremia: PLAN: mssa bacteremia per pcr. On vanc/ceftriaxone. UAg s. pneumo (+). Repeat bcx today. Echo pending. No spine or joint tenderness/swelling. No issues with LUE fistula. No foreign material in place. Will follow, thank you HPI Consult Data Date of Consult: 07/24/21 HPI Narrative HPI Narrative: ABEL SOLIS, is a 80 M who presented 07/22 with several weeks not feeling well. No issues with LUE fistula. ECF resident. Mild rare dry cough. Some fever and chills, some fatigue. No new joint pain. No rash or skin infection. Came to ED, admitted on vanc/zosyn, changed to vanc/ceftriaxone. Bcx with mssa per pcr. Full ROS performed and neg except as noted above. Is covid vaccinated. [facility] Medical History MOODY (acute kidney injury) Anemia Asthma Atrial fibrillation Benign essential HTN Brain aneurysm Chronic renal failure, stage 5 Colon polyps COPD (chronic obstructive pulmonary disease) CVA (cerebral vascular accident) Hepatitis C History of GI bleed PVD (peripheral vascular disease) Sleep apnea Tobacco use disorder Type II diabetes mellitus, uncontrolled Home Medications atorvastatin 10 mg PO QHS 05/05/19 [History Last Taken 06/29/21 21:00] mycophenolate mofetil 500 mg PO BID 09/06/20 [History Last Taken 06/29/21] calcium acetate(phosphat bind) 667 mg capsule 2,001 mg PO TIDCM 11/03/20 [History Last Taken 06/29/21 17:00] ergocalciferol (vitamin D2) 1,250 mcg (50,000 unit) capsule 1,250 mcg PO QMONTH 11/03/20 [History Last Taken 06/14/21] Lokelma 5 g PO DAILY 07/01/21 [History Last Taken 06/29/21] Nephro-Lola 1 tab PO DAILY 07/01/21 [History Last Taken 06/29/21 17:00] Allergy/AdvReac Type Severity Reaction Status Date / Time varenicline tartrate Allergy makes me Verified 07/22/21 22:23 [From Chantix] loyd oseguera Family History Mother CVA (cerebral vascular accident) Diabetes Hypertension Father Colon cancer Diabetes Brother Diabetes Surgical History history insertion dialysis catheter (~11/04/20) History of cataract extraction History of colectomy History of colonoscopy (~06/2020) History of surgery on left wrist History of vein stripping Social History Smoking Status: Current every day smoker tobacco type: cigarettes Physical Exam Const alert and no apparent distress General Appearance: cooperative Exam Limitations: no limitations HEENT normocephalic and head/scalp atraumatic Eyes PERRL and EOMs intact bilaterally Neck supple and No nodes Resp normal air movement and clear to auscultation bilaterally Cardio regular rate and regular rhythm GI normal to inspection, nondistended, normoactive bowel sounds Extremity no clubbing, cyanosis or edema Skin no rashes or lesions noted Skin Narrative: LUE fistula no inflammation. No splinter hemorrhages on fingers. Neuro CN's II-XII intact bilaterally Lab / Micro Data Result Diagrams: 07/24/21 06:42 07/24/21 06:42 Labs: Laboratory Results - last 24 hr 07/23/21 02:20: MRSA (PCR) Negative 07/23/21 15:43: POC Glucose 238 H 07/23/21 17:00: APTT 47.0 H 07/23/21 21:51: POC Glucose 315 H 07/23/21 23:25: APTT 50.0 H 07/24/21 06:39: POC Glucose 278 H 07/24/21 06:42: WBC 15.0 H, RBC 2.60 L, Hgb 8.5 L, Hct 26.1 L, MCV 100.4 H, MCH 32.7 H, MCHC 32.6, RDW Std Deviation 59.9 H, RDW Coeff of Mihaela 16.4 H, Plt Count 180, MPV 11.4, Immature Gran % (Auto) 0.500, Neut % (Auto) 90.8 H, Lymph % (Auto) 3.7 L, Overton % (Auto) 4.9, Eos % (Auto) 0.0, Baso % (Auto) 0.1, Absolute Neuts (auto) 13.6 H, Absolute Lymphs (auto) 0.55 L, Nucleated RBC % 0.2, Anisocytosis 1+ 07/24/21 06:42: Sodium 126 L, Potassium 4.2, Chloride 84 L, Carbon Dioxide 25.0, Anion Gap 17 H, BUN 73 H, Creatinine 7.25 H, Estim Creat Clear Calc 6.89, Est GFR (MDRD) Af Amer 9 L, Est GFR (MDRD) Non-Af 8 L, BUN/Creatinine Ratio 10.1, Glucose 327 H, Calcium 8.3 L, Magnesium 2.5 07/24/21 06:42: APTT 54.8 H 07/24/21 11:42: POC Glucose 113 H 07/24/21 12:30: APTT 50.9 H Micro: Microbiology 07/23/21 05:17 Urine Catheter - Catheter Urine Culture - Preliminary Culture exhibits no growth. 07/22/21 22:37 Blood Culture (Wb) - Right Wrist Blood Culture - Preliminary Staphylococcus aureus 07/22/21 22:35 Blood Culture (Wb) - Anticubital Right Bacteria Detection (PCR) - Final Staphylococcus aureus 07/22/21 22:35 Blood Culture (Wb) - Anticubital Right Blood Culture - Preliminary Staphylococcus aureus Rhythm Strip Rhythm Strip: Sinus Rhythm Rate: 98 Ectopy: None
--- NOTE | 2021-07-24 15:42 | CASEMGMT ---
SW met w/daughter in room, completed Medicaid application w/daughter, faxed to [facility]. SW spoke w/daughter about SNF options. She may want to consider [facility] for pt, as he could get dialysis on site. Pt agreeable to this also. Daughter states however she saw on the website they do dialysis through a catheter and not a fistula, wanted to make sure pt can get dialysis through a fistula. SW called and left a message, SW will continue to follow, will let daughter know once [facility] calls back. BASIA Cherry
[2021-07-24] MEDS: Vancomycin IV 500 MG/100 ML BAG 100 MG IV (15:55)
[2021-07-24 16:11] LABS: Bedside Glucose 152 mg/dL (70-110)
--- NOTE | 2021-07-24 16:13 | PN.HOSP_ITS ---
Subjective Subjective Seen and examined. Patient is still short of breath but he states better than yesterday. Undergoing dialysis. Very weak and having hard time in sitting up. Denies any chest pain. Objective Data Objective Data Vital Signs: Vital Signs Temp Pulse Resp BP Pulse Ox 98.5 F 84 20 H 172/71 H 96 07/24/21 12:39 07/24/21 14:22 07/24/21 14:22 07/24/21 12:39 07/24/21 14:22 Oxygen Flow Rate (L/min) 8 Oxygen Delivery Method Venturi Mask Weight: 128 lb 4.944 oz Body Mass Index (BMI) 18.1 Intake & Output: Intake and Output for Last 24 Hours 07/22/21 07/23/21 07/24/21 23:59 23:59 23:59 Intake Total 1004 / 1004 791.18 / 791.18 Output Total 1000 / 1000 Balance 1004 / 1004 -208.82 / -208.82 Lab / Micro Data Result Diagrams: 07/24/21 06:42 07/24/21 06:42 Labs: Laboratory Results - last 24 hr 07/23/21 17:00: APTT 47.0 H 07/23/21 21:51: POC Glucose 315 H 07/23/21 23:25: APTT 50.0 H 07/24/21 06:39: POC Glucose 278 H 07/24/21 06:42: WBC 15.0 H, RBC 2.60 L, Hgb 8.5 L, Hct 26.1 L, MCV 100.4 H, MCH 32.7 H, MCHC 32.6, RDW Std Deviation 59.9 H, RDW Coeff of Mihaela 16.4 H, Plt Count 180, MPV 11.4, Immature Gran % (Auto) 0.500, Neut % (Auto) 90.8 H, Lymph % (Auto) 3.7 L, [place] % (Auto) 4.9, Eos % (Auto) 0.0, Baso % (Auto) 0.1, Absolute Neuts (auto) 13.6 H, Absolute Lymphs (auto) 0.55 L, Nucleated RBC % 0.2, Anisocytosis 1+ 07/24/21 06:42: Sodium 126 L, Potassium 4.2, Chloride 84 L, Carbon Dioxide 25.0, Anion Gap 17 H, BUN 73 H, Creatinine 7.25 H, Estim Creat Clear Calc 6.89, Est GFR (MDRD) Af Amer 9 L, Est GFR (MDRD) Non-Af 8 L, BUN/Creatinine Ratio 10.1, Glucose 327 H, Calcium 8.3 L, Magnesium 2.5 07/24/21 06:42: APTT 54.8 H 07/24/21 11:42: POC Glucose 113 H 07/24/21 12:30: APTT 50.9 H 07/24/21 16:03: POC Glucose 152 H Micro: Microbiology 07/23/21 05:17 Urine Catheter - Catheter Urine Culture - Preliminary Culture exhibits no growth. 07/22/21 22:37 Blood Culture (Wb) - Right Wrist Blood Culture - Preliminary Staphylococcus aureus 07/22/21 22:35 Blood Culture (Wb) - Anticubital Right Bacteria Detection (PCR) - Final Staphylococcus aureus 07/22/21 22:35 Blood Culture (Wb) - Anticubital Right Blood Culture - Pr eliminary Staphylococcus aureus 07/23/21 05:17 Urine, Clean Catch Legionella Antigen - Final 07/23/21 05:17 Urine, Clean Catch Streptococcus pneumoniae Antigen (M - Final Streptococcus pneumonia Ag 07/23/21 00:23 Mucosa - Nasopharyngeal Respiratory Panel (PCR) - Final 07/22/21 22:38 Interface Orders SARS-CoV-2 Antigen (Rapid) - Final Rhythm Strip Rhythm Strip: Sinus Rhythm Rate: 98 Ectopy: None Physical Exam Narrative General: Alert, Oriented x3, Cooperative, fatigue HEENT: Atraumatic, PERRLA, EOMI, Normocephalic Oral: No Gingival or Mucosal Lesions/ Ulcerations Neck: Supple, No JVD, Negative Carotid Bruits Lungs: Dyspnea at rest. Air entry severely diminished in bilateral lung bases. Bilateral fine crepitations. Cardiovascular: Regular rate, Regular Rhythm, Normal S1, Normal S2, No murmurs Abdomen: Bowel Sounds Present, Soft, Non Tender, Non-Distended : On hemodialysis no renal angle tenderness. No suprapubic tenderness. Extremities: No edema, Capillary Refill Less than 3 Seconds Skin: Scabs on knee and lower legs. No rashes, No breakdown Musculoskeletal: Weakness lower legs, strength 4/5. Mild atrophy of both lower legs. No Tenderness to Palpation of Joints or Extremities Neurological: Cranial nerves II-XII grossly intact, DTR 2+/4 and Symmetrical, Neuro grossly intact Psych/Mental Status: Flat affect. Assessment & Plan Assessment/Plan (1) Acute respiratory failure with hypoxia: (2) NSTEMI, initial episode of care: (3) Multifocal pneumonia: (4) Weakness: (5) Metabolic encephalopathy: (6) Febrile illness, acute: (7) Leukocytosis: (8) Anemia in chronic kidney disease (CKD): PLAN: Acute hypoxic respiratory failure related to bilateral pneumonia due to strep pneumoniae and staph aureus bacteremia and possible heart failure from non- STEMI: Patient is admitted in PCU. Preliminary blood culture shows gram- positive and cluster, staph aureus making not detected. Urinary antigens for Streptococcus positive. On oxygen. Covid RT PCR negative. Patient also has transaminitis increased anion gap metabolic acidosis and leukocytosis probably due to infection, -Continue supplemental oxygen as needed to maintain oxygen saturations greater than 92%. 07/24: Still short of breath. Seen by ID. Antibiotic narrowed down to vancomycin and ceftriaxone. Zosyn discontinued. Leukocytosis improving. Acute NSTEMI probably type II CO from increased myocardial demand secondary to hypoxia: Troponin very high. On IV heparin drip. Discussed with the shipping and receiving specialist. 2D echo, lipid profile and A1c tomorrow a.m. Plan for conservative management for now. On baby aspirin, statin, low-dose metoprolol. Most recent was from 06/30/2021 and showed an EF of 40 to 45% with mild global hypokinesia, moderate MR, mild to Moderate TR 07/24: 2D echo is completed. Not reported yet. Metabolic encephalopathy from acute infection and possible non-STEMI. ESRD on hemodialysis on Saturday and Saturday. Academic Support Coordinator Dr. Hamilton is consulted. On hemodialysis per white sidewall tire buffer. Severe protein calorie malnutrition: Dietary selected. On Ensure Diabetes mellitus type 2 uncontrolled: Accu-Cheks before meals and at bedtime continue sliding scale. Elevated blood sugar Multiple comorbidities include chronic hyponatremia, dyslipidemia, chronic anemia secondary to end-stage renal disease DVT prophylaxis -Patient is on a heparin drip at this time CODE STATUS: Living will/advanced directive/end of life care: Patient does not have living will or advanced directive. His power of family law attorney is her daughter, Ms. Jovita Jackman. After discussion of benefits/risks procedures involved with full code, DNR CC arrest and DNR CC, the patient and her daughter opted for DNR-CC Arrest with no intubation Patient does not want artificial life support including intubation, tube feed, ventilator and/chest compression, central venous catheter, vasopressor and DC shock if needed Total time spent in [id number] encounter in discussion of advanced directive 16 minutes. I talked to the patient's daughter Jovita and gave clinical update. Charges/Coding Visit Charges Inpatient E&M: 45294 Subs Hosp L2 Procedures Hospitalists Procedures: 32562 Advncd Care Plan 30 Min
[2021-07-24] MEDS: HEPARIN/D5w 25,000 UNITS 25,000 UNITS/250 ML IV.SOLN. 8 UNITS IV (17:10)
[2021-07-24] MEDS: Atorvastatin Calcium 10 MG Tablet PO (22:40)
[2021-07-24 22:50] LABS: Bedside Glucose 286 mg/dL (70-110)
[2021-07-25] VITALS (15 sets, daily range): BP systolic 141–166; BP diastolic 64–118; PULSE 71–89; RESP 18–24; TEMP 36.4–37; O2SAT 35–100
[2021-07-25 05:01] LABS: Absolute Lymphocyte Count 0.87 X10^3/uL (0.83-4.51); Absolute Neutrophil Count 12.2 X10^3/uL (2.0-7.7); Basophil# 0.02 X10^3/uL; Basophil% 0.1 % (0-1); Eosinophil# 0.01 X10^3/uL; Eosinophils% 0.1 % (0-5); Hematocrit 27.8 % (40-54); Hemoglobin 8.8 g/dL (13.0-16.5); Lymphocyte # 0.87 X10^3/ul (0.83-4.51); Lymphocyte % 6.3 % (19-41); Mean Corp Hgb Conc 31.7 g/dL (32-36); Mean Corpuscular Hgb 33.3 pg (27.0-32.0); Mean Corpuscular Volume 105.3 fL (80-94); Mean Platelet Vol. 11.3 fl (6.2-12.0); Monocyte# 0.68 X10^3/uL; Monocyte% 4.9 % (0-10); NRBC Flagged by Analyzer 0.9 % (0-5); Neutrophil % 88.1 % (47-70); Platelet Count 166 K/mm3 (150-450); RBC Distribution Width CV 16.3 % (11.6-14.6); Red Blood Count 2.64 M/mm3 (4.6-6.2); White Blood Count 13.9 K/mm3 (4.4-11.0)
[2021-07-25 05:14] LABS: Partial Thromboplast Time 50.8 Seconds (24.1-36.2)
[2021-07-25 05:17] LABS: Anion Gap 12 (5-15); BUN 41 mg/dL (7-18); BUN/Creat Ratio 8.1 RATIO (10-20); Calcium,Total 8.8 mg/dL (8.5-10.1); Chloride 93 mmol/L (98-107); Creatinine, Serum 5.04 mg/dL (0.70-1.30); EST Glomerular Filtration Rate 12 mL/min (>60); Est Glom Filt Rate - Afr Amer 14 mL/min (>60); Estimated Creatinine Clearance 9.88 ml/min; Glucose 282 mg/dL (74-106); Potassium 4.5 mmol/L (3.5-5.1); Sodium Level 132 mmol/L (136-145)
[2021-07-25] MEDS: Insulin Lispro 100 UNIT/ML INSULN.PEN SC ×3 (06:50→16:26)
[2021-07-25] MEDS: Heparin Injection (Vial) 5,000 UNIT/ML VIAL IV ×2 (06:50→19:21)
[2021-07-25 06:51] LABS: Bedside Glucose 314 mg/dL (70-110)
[2021-07-25] MEDS: Ipratropium/Albuterol Sulfate 3 ML AMPUL.NEB INHALATION ×3 (07:11→19:15)
[2021-07-25] MEDS: Mycophenolate Mofetil 250 MG Capsule 500 MG PO ×2 (08:58→21:13)
[2021-07-25] MEDS: Calcium Acetate 667 MG Capsule 2001 MG PO ×3 (08:58→16:25)
[2021-07-25] MEDS: Folic Acid/Vitamin B Comp W-C 1 Capsule 1 CAP PO (08:59)
[2021-07-25] MEDS: Carvedilol 3.125 MG TABLET PO ×2 (10:40→21:13)
--- NOTE | 2021-07-25 10:47 | PCM.PN.ID ---
Physical Exam Narrative Feeling better, no fever, no n/v/d. Const alert General Appearance: cooperative Resp normal air movement and clear to auscultation bilaterally Cardio regular rate and regular rhythm GI normal to inspection, nondistended, normoactive bowel sounds Skin no rashes or lesions noted ID ID: Route of nutrition/ use of supplements: [] Nutritional Intake: [] IV Site: [] Jade Catheter: [] Assessment & Plan Assessment/Plan (1) ESRD (end stage renal disease) on dialysis: (2) Bacteremia: PLAN: mssa bacteremia. On vanc/ceftriaxone. UAg s. pneumo (+). Repeat bcx today. TTE neg for veg. No spine or joint tenderness/swelling. No issues with LUE fistula. No foreign material in place. Narrow abx to cefazolin. Plan will be for cefazolin dosed with HD at discharge. Will follow
[2021-07-25 11:01] LABS: Bedside Glucose 234 mg/dL (70-110)
--- NOTE | 2021-07-25 11:19 | CASEMGMT ---
JENIFER MCBRIDE called [facility] and they can do dialysis through catheter or fistula at [facility]. SW called patient's daughter and let her know this information. She asked that a referral be sent to [facility]. MODESTO told her SW will work on this and get back with her. SW faxed referral and also left a message for Marie at [facility]. Gina Meier FRENCH BINDER ZHANNA
--- NOTE | 2021-07-25 11:26 | PN.CARD_ITS ---
Subjective Subjective This patient seen and eval today at bedside Sitting out in a chair feeling better shortness of breath is improving No symptoms of chest pain reported Objective Data Vital Signs: Vital Signs Temp Pulse Resp BP Pulse Ox 98.6 F 83 18 166/69 H 99 07/25/21 08:52 07/25/21 08:52 07/25/21 08:52 07/25/21 08:52 07/25/21 08:52 Oxygen Flow Rate (L/min) 3 Oxygen Delivery Method Nasal Cannula Weight: 127 lb 6.835 oz Body Mass Index (BMI) 18.1 Intake & Output: Intake and Output for Last 24 Hours 07/23/21 07/24/21 07/25/21 23:59 23:59 23:59 Intake Total 1004 / 1004 1010.44 / 1190.44 304.25 / 304.25 Output Total 1000 / 1000 0 / 0 Balance 1004 / 1004 10.44 / 190.44 304.25 / 304.25 Lab / Micro Data Result Diagrams: 07/25/21 04:48 07/25/21 04:48 Labs: Laboratory Results - last 24 hr 07/24/21 11:42: POC Glucose 113 H 07/24/21 12:30: APTT 50.9 H 07/24/21 16:03: POC Glucose 152 H 07/24/21 20:26: APTT 52.0 H 07/24/21 22:39: POC Glucose 286 H 07/25/21 04:48: WBC 13.9 H, RBC 2.64 L, Hgb 8.8 L, Hct 27.8 L, MCV 105.3 H, MCH 33.3 H, MCHC 31.7 L, RDW Std Deviation 63.0 H, RDW Coeff of Mihaela 16.3 H, Plt Count 166, MPV 11.3, Immature Gran % (Auto) 0.500, Neut % (Auto) 88.1 H, Lymph % (Auto) 6.3 L, Haakon % (Auto) 4.9, Eos % (Auto) 0.1, Baso % (Auto) 0.1, Absolute Neuts (auto) 12.2 H, Absolute Lymphs (auto) 0.87, Nucleated RBC % 0.9 07/25/21 04:48: Sodium 132 L, Potassium 4.5, Chloride 93 L, Carbon Dioxide 27.0, Anion Gap 12, BUN 41 H, Creatinine 5.04 H, Estim Creat Clear Calc 9.88, Est GFR (MDRD) Af Amer 14 L, Est GFR (MDRD) Non-Af 12 L, BUN/Creatinine Ratio 8.1 L, Glucose 282 H, Calcium 8.8 07/25/21 04:48: APTT 50.8 H 07/25/21 06:46: POC Glucose 314 H 07/25/21 10:53: POC Glucose 234 H Micro: Microbiology 07/23/21 05:17 Urine Catheter - Catheter Urine Culture - Final Culture exhibits no growth. 07/22/21 22:37 Blood Culture (Wb) - Right Wrist Blood Culture - Final Staphylococcus aureus 07/22/21 22:35 Blood Culture (Wb) - Anticubital Right Bacteria Detection (PCR) - Final Staphylococcus aureus 07/22/21 22:35 Blood Culture (Wb) - Anticubital Right Blood Culture - Final Staphylococcus aureus Rhythm Strip Rhythm Strip: Sinus Rhythm Rate: 98 Ectopy: None Cardiology Labs/Tests 07/24/21 12:30: APTT 50.9 H 07/24/21 20:26: APTT 52.0 H 07/25/21 04:48: WBC 13.9 H, RBC 2.64 L, Hgb 8.8 L, Hct 27.8 L, MCV 105.3 H, MCH 33.3 H, MCHC 31.7 L, Plt Count 166, MPV 11.3, Immature Gran % (Auto) 0.500, Neut % (Auto) 88.1 H, Lymph % (Auto) 6.3 L, Haakon % (Auto) 4.9, Eos % (Auto) 0.1, Baso % (Auto) 0.1, Absolute Neuts (auto) 12.2 H, Nucleated RBC % 0.9 07/25/21 04:48: Sodium 132 L, Potassium 4.5, Chloride 93 L, Carbon Dioxide 27.0, Anion Gap 12, BUN 41 H, Creatinine 5.04 H, Est GFR (MDRD) Af Amer 14 L, Est GFR (MDRD) Non-Af 12 L, BUN/Creatinine Ratio 8.1 L, Glucose 282 H, Calcium 8.8 07/25/21 04:48: APTT 50.8 H Rhythm: Normal sinus rhythm ECHO: EF 37% Radiography Diagnostic Testing: Radiology Impression Echocardiogram 07/23/21 00:28 Interpretation Summary Normal LV size. The estimated ejection fraction is 37 %. There is moderate global hypokinesis of the left ventricle. Normal diastology for age. Small pericardial effusion. Moderate focal aortic valve calcification. Stage 1 diastolic dysfunction. Moderate size left pleural effusion. Ordering Physician: Kaley Hamilton Referring Physician: Jai Desouza Performed By: Alejandro Way RCS Physical Exam Narrative Patient seen and evaluated at bedside along with the nursing staff Not in apparent distress Alert and orientated x3 Cardiovascular examination; S1-S2 regular, no pericardial rub, no gallop, no systolic or diastolic murmur Chest examination; Diminished air entry bilateral with minimal basilar rales. Central nervous system exam; No focal neurological deficit noted Examination of lower extremities; No lower extremity edema, no clubbing or cyanosis. Risk Stratification Risk Stratification Applicable: Yes Age >/= 65: Yes >/= 3 CAD Risk Factors (HTN, HLD, DM, family hx of CAD, or current smoker): Yes Aspirin Use in the Past 7 Days: Yes Severe Angina (>/= episodes in 24 hours): No EKG ST Changes >/= 0.5mm: No Positive Cardiac Marker: Yes SVETLANA Risk Stratification Score: 4 SVETLANA % Risk: 20% Risk Assessment & Plan Assessment/Plan (1) Multifocal pneumonia: (2) ESRD (end stage renal disease) on dialysis: (3) Anemia in chronic kidney disease (CKD): (4) DM type 2 (diabetes mellitus, type 2): (5) NSTEMI, initial episode of care: PLAN: This patient with multiple medical comorbidities With multifocal pneumonia, significantly elevated cardiac enzymes/high sensitive troponin I With the worsening LV systolic function, with ejection fraction 37%. Patient has end-stage renal disease currently on hemodialysis history of anemia. The cardiac telemetry showed underlying normal sinus rhythm Symptoms of shortness of breath is improving with the current treatment and he is on IV antibiotic with vancomycin/ceftriaxone Cardiac recommendation and plan; 1. Patient is status is DNR CC?A, no intubation I talked to his daughter today and explained the cardiac status as she has a non-ST elevation IA which is type II IA/demand myocardial ischemia secondary to hypoxia With acute aspiratory failure with hypoxia multifocal pneumonia. 2. Patient remained in normal sinus rhythm and I reviewed his current medication Did beta-angeli carvedilol 3.125 mg twice a day in addition to statin and aspirin. 3. From cardiac standpoint patient can be set up for outpatient follow-up with the [facility] high pressure firer.
[2021-07-25 12:59] LABS: Partial Thromboplast Time 61.2 Seconds (24.1-36.2)
--- NOTE | 2021-07-25 13:04 | CASEMGMT ---
MODESTO received a call from [facility] [place] [facility] and they can accept patient. She said [employer] is still waiving pre-certs. MODESTO called patient's daughter and let her know [facility] can take patient when he is ready. She thanked for the update. Plan: D/c to [facility] under skilled level of care. Gina Meier BUSINESS SERVICES COORDINATOR ZHANNA
--- NOTE | 2021-07-25 13:57 | CPS ---
Pt was asleep and was 86% on room air, had him take deep breaths but Spo2 only increased to 89%. Placed on 35% VM which was patient's choice.
--- NOTE | 2021-07-25 14:27 | PN.HOSP_ITS ---
Subjective Subjective Overall patient is feeling better today. He states improvement in shortness of breath. Was feeling weak after dialysis yesterday. 2D echo findings discussed with him. Objective Data Objective Data Vital Signs: Vital Signs Temp Pulse Resp BP Pulse Ox 98.6 F 83 18 166/69 H 96 07/25/21 08:52 07/25/21 08:52 07/25/21 08:52 07/25/21 08:52 07/25/21 11:57 Oxygen Flow Rate (L/min) 2 Oxygen Delivery Method Room Air Weight: 127 lb 6.835 oz Body Mass Index (BMI) 18.1 Intake & Output: Intake and Output for Last 24 Hours 07/23/21 07/24/21 07/25/21 23:59 23:59 23:59 Intake Total 1004 / 1004 1010.44 / 1190.44 704.25 / 704.25 Output Total 1000 / 1000 0 / 0 Balance 1004 / 1004 10.44 / 190.44 704.25 / 704.25 Lab / Micro Data Result Diagrams: 07/25/21 04:48 07/25/21 04:48 Labs: Laboratory Results - last 24 hr 07/24/21 16:03: POC Glucose 152 H 07/24/21 20:26: APTT 52.0 H 07/24/21 22:39: POC Glucose 286 H 07/25/21 04:48: WBC 13.9 H, RBC 2.64 L, Hgb 8.8 L, Hct 27.8 L, MCV 105.3 H, MCH 33.3 H, MCHC 31.7 L, RDW Std Deviation 63.0 H, RDW Coeff of Mihaela 16.3 H, Plt Count 166, MPV 11.3, Immature Gran % (Auto) 0.500, Neut % (Auto) 88.1 H, Lymph % (Auto) 6.3 L, Greer % (Auto) 4.9, Eos % (Auto) 0.1, Baso % (Auto) 0.1, Absolute Neuts (auto) 12.2 H, Absolute Lymphs (auto) 0.87, Nucleated RBC % 0.9 07/25/21 04:48: Sodium 132 L, Potassium 4.5, Chloride 93 L, Carbon Dioxide 27.0, Anion Gap 12, BUN 41 H, Creatinine 5.04 H, Estim Creat Clear Calc 9.88, Est GFR (MDRD) Af Amer 14 L, Est GFR (MDRD) Non-Af 12 L, BUN/Creatinine Ratio 8.1 L, Glucose 282 H, Calcium 8.8 07/25/21 04:48: APTT 50.8 H 07/25/21 06:46: POC Glucose 314 H 07/25/21 10:53: POC Glucose 234 H 07/25/21 12:35: APTT 61.2 H Micro: Microbiology 07/23/21 05:17 Urine Catheter - Catheter Urine Culture - Final Culture exhibits no growth. 07/22/21 22:37 Blood Culture (Wb) - Right Wrist Blood Culture - Final Staphylococcus aureus 07/22/21 22:35 Blood Culture (Wb) - Anticubital Right Bacteria Detection (PCR) - Final Staphylococcus aureus 07/22/21 22:35 Blood Culture (Wb) - Anticubital Right Blood Culture - Final Staphylococcus aureus 07/23/21 05:17 Urine, Clean Catch Legionella Antigen - Final 07/23/21 05:17 Urine, Clean Catch Streptococcus pneumoniae Antigen (M - Final Streptococcus pneumonia Ag 07/23/21 00:23 Mucosa - Nasopharyngeal Respiratory Panel (PCR) - Final 07/22/21 22:38 Interface Orders SARS-CoV-2 Antigen (Rapid) - Final Radiography Diagnostic Testing: Radiology Impression Echocardiogram 07/23/21 00:28 Interpretation Summary Normal LV size. The estimated ejection fraction is 37 %. There is moderate global hypokinesis of the left ventricle. Normal diastology for age. Small pericardial effusion. Moderate focal aortic valve calcification. Stage 1 diastolic dysfunction. Moderate size left pleural effusion. Ordering Physician: Kaley Hamilton Referring Physician: Jai Desouza Performed By: Alejandro Way RCS Rhythm Strip Rhythm Strip: Sinus Rhythm Rate: 98 Ectopy: None Physical Exam Narrative Patient states he falls frequently at home. General: Alert, Oriented x3, Cooperative, fatigue HEENT: Atraumatic, PERRLA, EOMI, Normocephalic Oral: No Gingival or Mucosal Lesions/ Ulcerations Neck: Supple, No JVD, Negative Carotid Bruits Lungs: Dyspnea at rest resolved. Air entry severely diminished in bilateral lung bases. Cardiovascular: Regular rate, Regular Rhythm, Normal S1, Normal S2, No murmurs Abdomen: Bowel Sounds Present, Soft, Non Tender, Non-Distended : On hemodialysis no renal angle tenderness. No suprapubic tenderness. Extremities: No edema, Capillary Refill Less than 3 Seconds Skin: Scabs on knee and lower legs. No rashes, No breakdown Musculoskeletal: Weakness lower legs, strength 4/5. Mild atrophy of both lower legs. No Tenderness to Palpation of Joints or Extremities Neurological: Cranial nerves II-XII grossly intact, DTR 2+/4 and Symmetrical Psych/Mental Status: Flat affect. Assessment & Plan Assessment/Plan (1) Bacteremia: (2) Acute respiratory failure with hypoxia: (3) NSTEMI, initial episode of care: (4) Multifocal pneumonia: (5) Weakness: (6) Metabolic encephalopathy: (7) Febrile illness, acute: (8) Leukocytosis: (9) Anemia in chronic kidney disease (CKD): PLAN: Acute hypoxic respiratory failure related to bilateral pneumonia due to strep pneumoniae and staph aureus bacteremia and possible heart failure from non- STEMI: Patient is admitted in PCU. Preliminary blood culture shows gram- positive and cluster, staph aureus making not detected. Urinary antigens for S treptococcus positive. On oxygen. Covid RT PCR negative. Patient also has transaminitis increased anion gap metabolic acidosis and leukocytosis probably due to infection, -Continue supplemental oxygen as needed to maintain oxygen saturations greater than 92%. 07/24: Still short of breath. Seen by ID. Antibiotic narrowed down to vancomycin and ceftriaxone. Zosyn discontinued. Leukocytosis improving. 07/25: Shortness of breath has improved. Continue antibiotic. Repeat blood culture was sent yesterday and today and are pending Acute on chronic systolic and diastolic heart failure most probably due to acute NSTEMI probably type II NH from increased myocardial demand secondary to hyp oxia: Troponin very high. On IV heparin drip. Discussed with the coffee grower. 2D echo, lipid profile and A1c tomorrow a.m. Plan for conservative management for now. On baby aspirin, statin, low-dose metoprolol. Most recent was from 06/30/2021 and showed an EF of 40 to 45% with mild global hypokinesia, moderate MR, mild to Moderate TR 07/25: 2D echo discussed with the coffee grower. No vegetation seen. EF 37% moderate global hypokinesis stage I?restriction. Moderate sized left effusion. Overall suggestive of acute on chronic systolic and diastolic heart failure Metabolic encephalopathy from acute infection and possible non-STEMI. 07/25 acute metabolic encephalopathy resolved. ESRD on hemodialysis on Saturday and Saturday. [employer] Dr. Hamilton is consulted. On hemodialysis per supervisor paper testing. Severe protein calorie malnutrition: Dietary selected. On Ensure Diabetes mellitus type 2 uncontrolled: Accu-Cheks before meals and at bedtime continue sliding scale. Elevated blood sugar Multiple comorbidities include chronic hyponatremia, dyslipidemia, chronic anemia secondary to end-stage renal disease DVT prophylaxis -Patient is on a heparin drip at this time CODE STATUS: Living will/advanced directive/end of life care: Patient does not have living will or advanced directive. His power of prosecuting attorney is her daughter, Ms. Jovita Jackman. After discussion of benefits/risks procedures involved with full code, DNR CC arrest and DNR CC, the patient and her daughter opted for DNR-CC Arrest with no intubation Patient does not want artificial life support including intubation, tube feed, ventilator and/chest compression, central venous catheter, vasopressor and DC shock if needed Total time spent in [id number] encounter in discussion of advanced directive 16 minutes. I talked to the patient's daughter Jovita and gave clinical update on 07/1221. Charges/Coding Visit Charges Inpatient E&M: 82638 Subs Hosp L2
[2021-07-25 16:35] LABS: Bedside Glucose 222 mg/dL (70-110)
[2021-07-25] MEDS: HEPARIN/D5w 25,000 UNITS 25,000 UNITS/250 ML IV.SOLN. 10 UNITS IV (17:58)
[2021-07-25 19:04] LABS: Partial Thromboplast Time 53.2 Seconds (24.1-36.2)
[2021-07-25] MEDS: Cefazolin 1 GM/50 ML BAG IV (20:55)
[2021-07-25] MEDS: Atorvastatin Calcium 10 MG Tablet PO (21:13)
[2021-07-25 21:26] LABS: Bedside Glucose 246 mg/dL (70-110)
[2021-07-26] VITALS (11 sets, daily range): BP systolic 153–166; BP diastolic 67–74; PULSE 70–81; RESP 16–20; TEMP 36.6–36.8; O2SAT 90–96
[2021-07-26 01:47] LABS: Partial Thromboplast Time 60.8 Seconds (24.1-36.2)
[2021-07-26] MEDS: Ipratropium/Albuterol Sulfate 3 ML AMPUL.NEB INHALATION ×3 (06:49→19:23)
[2021-07-26] MEDS: Insulin Lispro 100 UNIT/ML INSULN.PEN SC ×3 (06:59→16:34)
[2021-07-26 07:05] LABS: Bedside Glucose 229 mg/dL (70-110)
[2021-07-26] MEDS: Calcium Acetate 667 MG Capsule 2001 MG PO ×3 (07:35→16:34)
[2021-07-26 07:41] LABS: Partial Thromboplast Time 59.1 Seconds (24.1-36.2)
[2021-07-26] MEDS: Folic Acid/Vitamin B Comp W-C 1 Capsule 1 CAP PO (08:57)
[2021-07-26] MEDS: Mycophenolate Mofetil 250 MG Capsule 500 MG PO (08:57)
[2021-07-26] MEDS: Carvedilol 3.125 MG TABLET PO (09:31)
[2021-07-26 11:06] LABS: Bedside Glucose 305 mg/dL (70-110)
--- NOTE | 2021-07-26 12:00 | CASEMGMT ---
Call to Bran at [facility] and he states pt cannot be run at [facility] on the day that he arrives there. Pt will be run there on M,T,W,F per [facility]. Chetan SALVADOR aware, voices understanding. Bran aware that pt will likely discharge tomorrow, 07/27, voices understanding. Bran states pt can do first run at [facility] on 07/28. CM to follow. Carmen BURGESS CM
--- NOTE | 2021-07-26 12:18 | PN.RENAL_ITS ---
Subjective Subjective dialysis today, feeling better. Objective Data Objective Data Vital Signs: Vital Signs Temp Pulse Resp BP Pulse Ox 97.9 F 70 18 166/74 H 93 07/26/21 08:51 07/26/21 08:51 07/26/21 08:51 07/26/21 08:51 07/26/21 08:51 Oxygen Flow Rate (L/min) 93 Oxygen Delivery Method Room Air Weight: 60.8 kg Body Mass Index (BMI) 18.1 Intake & Output: Intake and Output for Last 24 Hours 07/24/21 07/25/21 07/26/21 23:59 23:59 23:59 Intake Total 1010.44 / 1190.44 1428.84 / 1428.84 314.43 / 314.43 Output Total 1000 / 1000 0 / 0 Balance 10.44 / 190.44 1428.84 / 1428.84 314.43 / 314.43 Lab / Micro Data Result Diagrams: 07/25/21 04:48 07/25/21 04:48 Labs: Laboratory Results - last 24 hr 07/25/21 12:35: APTT 61.2 H 07/25/21 16:24: POC Glucose 222 H 07/25/21 18:40: APTT 53.2 H 07/25/21 21:02: POC Glucose 246 H 07/26/21 01:25: APTT 60.8 H 07/26/21 06:55: POC Glucose 229 H 07/26/21 07:15: APTT 59.1 H 07/26/21 11:00: POC Glucose 305 H Micro: Microbiology 07/23/21 05:17 Urine Catheter - Catheter Urine Culture - Final Culture exhibits no growth. 07/22/21 22:37 Blood Culture (Wb) - Right Wrist Blood Culture - Final Staphylococcus aureus 07/22/21 22:35 Blood Culture (Wb) - Anticubital Right Bacteria Detection (PCR) - Final Staphylococcus aureus 07/22/21 22:35 Blood Culture (Wb) - Anticubital Right Blood Culture - Final Staphylococcus aureus 07/23/21 05:17 Urine, Clean Catch Legionella Antigen - Final 07/23/21 05:17 Urine, Clean Catch Streptococcus pneumoniae Antigen (M - Final Streptococcus pneumonia Ag 07/23/21 00:23 Mucosa - Nasopharyngeal Respiratory Panel (PCR) - Final 07/22/21 22:38 Interface Orders SARS-CoV-2 Antigen (Rapid) - Final Rhythm Strip Rhythm Strip: Sinus Rhythm Rate: 98 Ectopy: None Physical Exam Const alert, oriented x3 and no apparent distress Resp clear to auscultation bilaterally Cardio regular rate Extremity no clubbing, cyanosis or edema General Extremity: AV fistula Assessment & Plan Assessment/Plan (1) ESRD (end stage renal disease) on dialysis: PLAN: dialysis today. Arrange dialysis HHD at [facility] 4x/wk on discharge (2) Anemia in chronic kidney disease (CKD): PLAN: HUGH on dialysis (3) Leukocytosis: PLAN: iv/po antibx per ID rec to be administerd by ECF for pneumococcal pna (4) Troponin level elevated: PLAN: on heparin drip, cardio mgmt (5) Debility: PLAN: evaluate for ECF (6) DM type 2 (diabetes mellitus, type 2): PLAN: stable (7) Benign essential HTN: PLAN: stable (8) Pneumococcal pneumonia:
--- NOTE | 2021-07-26 15:48 | PCM.PN.ID ---
Physical Exam Narrative Feeling better, no fever, no n/v/d. Const alert General Appearance: cooperative Resp normal air movement and clear to auscultation bilaterally Cardio regular rate and regular rhythm GI normal to inspection, nondistended, normoactive bowel sounds Skin no rashes or lesions noted ID ID: Route of nutrition/ use of supplements: [] Nutritional Intake: [] IV Site: [] Jade Catheter: [] Assessment & Plan Assessment/Plan (1) ESRD (end stage renal disease) on dialysis: (2) Bacteremia: PLAN: mssa bacteremia. On vanc/ceftriaxone. UAg s. pneumo (+). Repeat bcx neg since 07/24. TTE neg for veg. No spine or joint tenderness/swelling. No issues with LUE fistula. No foreign material in place. Narrowed abx to cefazolin. Plan will be for cefazolin dosed with HD at discharge, 2gm after each HD session for 4 week total course, stop date 08/21/21. Will follow
[2021-07-26] MEDS: HEPARIN/D5w 25,000 UNITS 25,000 UNITS/250 ML IV.SOLN. 11 UNITS IV (16:36)
[2021-07-26 16:45] LABS: Bedside Glucose 237 mg/dL (70-110)
[2021-07-26] MEDS: hydrALAZINE 20 MG/ML Vial 5 MG IV (16:47)
[2021-07-26] MEDS: 0.9% Saline Lock 10 ML Syringe IV (16:48)
--- NOTE | 2021-07-26 19:36 | PN.HOSP_ITS ---
Subjective Subjective Patient was seen and examined today, he is currently on room air and does not appear to be short of breath. Patient had dialysis today. Objective Data Objective Data Vital Signs: Vital Signs Temp Pulse Resp BP Pulse Ox 98.1 F 72 18 153/70 H 95 07/26/21 16:40 07/26/21 19:00 07/26/21 16:40 07/26/21 18:00 07/26/21 16:40 Oxygen Flow Rate (L/min) 93 Oxygen Delivery Method Room Air Weight: 60.8 kg Body Mass Index (BMI) 18.1 Intake & Output: Intake and Output for Last 24 Hours 07/24/21 07/25/21 07/26/21 23:59 23:59 23:59 Intake Total 1010.44 / 1190.44 1428.84 / 1428.84 1273.93 / 1273.93 Output Total 1000 / 1000 0 / 0 Balance 10.44 / 190.44 1428.84 / 1428.84 1273.93 / 1273.93 Lab / Micro Data Result Diagrams: 07/25/21 04:48 07/25/21 04:48 Labs: Laboratory Results - last 24 hr 07/25/21 21:02: POC Glucose 246 H 07/26/21 01:25: APTT 60.8 H 07/26/21 06:55: POC Glucose 229 H 07/26/21 07:15: APTT 59.1 H 07/26/21 11:00: POC Glucose 305 H 07/26/21 16:33: POC Glucose 237 H Micro: Microbiology 07/24/21 14:23 Blood Culture (Wb) - Anticubital Right Blood Culture - Pr eliminary No growth in 48 hours. 07/23/21 05:17 Urine Catheter - Catheter Urine Culture - Final Culture exhibits no growth. 07/22/21 22:37 Blood Culture (Wb) - Right Wrist Blood Culture - Final Staphylococcus aureus 07/22/21 22:35 Blood Culture (Wb) - Anticubital Right Bacteria Detection (PCR) - Final Staphylococcus aureus 07/22/21 22:35 Blood Culture (Wb) - Anticubital Right Blood Culture - Final Staphylococcus aureus 07/23/21 05:17 Urine, Clean Catch Legionella Antigen - Final 07/23/21 05:17 Urine, Clean Catch Streptococcus pneumoniae Antigen (M - Final Streptococcus pneumonia Ag 07/23/21 00:23 Mucosa - Nasopharyngeal Respiratory Panel (PCR) - Final 07/22/21 22:38 Interface Orders SARS-CoV-2 Antigen (Rapid) - Final Rhythm Strip Rhythm Strip: Sinus Rhythm Rate: 98 Ectopy: None Physical Exam Const alert, oriented x3 and no apparent distress Constitutional Narrative: Patient appears his stated age General Appearance: cooperative, well kempt and well developed Orientation / Consciousness: awake, oriented to person, oriented to place and oriented to time HEENT normocephalic, head/scalp atraumatic and moist oral mucous membranes Head and Scalp: normocephalic Eyes PERRL, EOMs intact bilaterally and conjunctivae normal Neck nuchal rigidity, supple, no JVD, thyroid normal and no carotid bruits General: trachea midline Resp normal respiratory effort, no retractions, no use of accessory muscles and clear to auscultation bilaterally Auscultation: Negative for rales, rhonchi or wheezes Cardio regular rate, regular rhythm, S1 normal heart sound, S2 normal heart sound, no murmurs, no rub and no gallops GI normal to inspection, nondistended, normoactive bowel sounds, soft to palpation, non-tender and non-distended Extremity no clubbing, cyanosis or edema Skin no rashes or lesions noted General Skin Exam: no breakdown Neuro oriented x3, CN's II-XII intact bilaterally, no focal motor deficits and no sensory deficits noted Sensorium / Orientation: awake and alert Speech: speech normal Psych thought process normal and affect normal Assessment & Plan Assessment/Plan (1) Multifocal pneumonia: PLAN: 1. Methicillin sensitive staph aureus bacteremia-continue antibiotic treatment per infectious diseases #2 Streptococcus pneumoniae pneumonia-continue antibiotic treatment per infectious diseases #3 end-stage renal disease on dialysis-patient will undergo dialysis today #4 non-STEMI #5 type 2 diabetes #6 metabolic encephalopathy-resolved #7 acute hypoxic respiratory failure secondary to strep pneumoniae pneumonia-pat ient is currently on room air #8 acute on chronic congestive heart failure with reduced ejection fraction- stable at this time Patient does not have acute or chronic diastolic congestive heart failure at this time Charges/Coding Visit Charges Inpatient E&M: 77904 Subs Hosp L2
[2021-07-26 21:40] LABS: Bedside Glucose 210 mg/dL (70-110)
--- NOTE | 2021-07-26 21:43 | NURSING ---
Dialysis nurse and equipment in patient room getting ready to start hemodialysis. Pt's medication's not given at this time; will wait until after dialysis is completed per dialysis nurse.
[2021-07-27] VITALS (9 sets, daily range): BP systolic 142–151; BP diastolic 49–72; PULSE 71–82; RESP 16–20; TEMP 36.4–37.4; O2SAT 94–100
[2021-07-27] MEDS: Cefazolin 1 GM/50 ML BAG IV (01:45)
[2021-07-27] MEDS: Atorvastatin Calcium 10 MG Tablet PO (01:47)
[2021-07-27] MEDS: Mycophenolate Mofetil 250 MG Capsule 500 MG PO ×2 (01:47→10:08)
[2021-07-27] MEDS: Carvedilol 3.125 MG TABLET PO ×2 (01:47→10:08)
--- NOTE | 2021-07-27 01:50 | NURSING ---
Pt's 2200 medications given late due to patient being on hemodialysis at scheduled time. Pt's medication given as soon as patient was done with dialysis.
[2021-07-27 06:14] LABS: Partial Thromboplast Time 52.4 Seconds (24.1-36.2)
[2021-07-27] MEDS: Heparin Injection (Vial) 5,000 UNIT/ML VIAL IV (06:28)
[2021-07-27] MEDS: Insulin Lispro 100 UNIT/ML INSULN.PEN SC ×3 (06:43→16:18)
[2021-07-27 06:50] LABS: Bedside Glucose 190 mg/dL (70-110)
[2021-07-27] MEDS: Ipratropium/Albuterol Sulfate 3 ML AMPUL.NEB INHALATION (07:12)
[2021-07-27 09:18] LABS: Hepatitis B Surface Antigen Non-Reactive (Nonreactive)
[2021-07-27] MEDS: Calcium Acetate 667 MG Capsule 2001 MG PO ×3 (10:08→16:19)
[2021-07-27] MEDS: Folic Acid/Vitamin B Comp W-C 1 Capsule 1 CAP PO (10:08)
--- NOTE | 2021-07-27 11:05 | PCM.PN.ID ---
Physical Exam Narrative Feeling better, no fever, no abd pain Const alert General Appearance: cooperative Resp normal air movement and clear to auscultation bilaterally Cardio regular rate and regular rhythm GI normal to inspection, nondistended, normoactive bowel sounds Skin no rashes or lesions noted ID ID: Route of nutrition/ use of supplements: [] Nutritional Intake: [] IV Site: [] Jade Catheter: [] Assessment & Plan Assessment/Plan (1) ESRD (end stage renal disease) on dialysis: (2) Bacteremia: PLAN: mssa bacteremia. UAg s. pneumo (+). Repeat bcx neg since 07/24. TTE neg for veg. No spine or joint tenderness/swelling. No issues with LUE fistula. No foreign material in place. Narrowed abx to cefazolin. Due to 4x/week HD schedule, neph recommends daily dosing 1gm of cefazolin. Want to avoid picc line/central line if possible, so will instead do 2 weeks of po linezolid at discharge. Will follow as needed, wrote rx, d/w primary team and keycase assembler
--- NOTE | 2021-07-27 11:16 | CASEMGMT ---
MODESTO called Marie at [facility] and let her know patient will be discharged today. Gina Meier MARINE PHOTOGRAPHERLoida CHAO
--- NOTE | 2021-07-27 11:40 | TREXTCAR_ITS ---
Diet 07/23/21 01:14 Diet: Renal - General Food consistency:: Regular Liquid Consistency:: Regular/Thin Dietary Modifications:: Consistent Carbohydrate Type of Dietary Supplement:: Nepro Diet Comments: 120 ml Nepro TID with meals. Routine Orders/Code Status Routine Lab Work: - (fingerstick blood sugars fasting and 4pm daily, call attending if blood sugar below 70 or above 200) Code Status: DNRCC-A (no intubation) Wound(s) rt knee: Wound Type: Abrasion Therapies Weight Bearing: Full weight bearing Problem/Diagnosis (1) ESRD (end stage renal disease) on dialysis: Status: Chronic (2) Bacteremia: Status: Acute Comment: MSSA (3) Pneumococcal pneumonia: Status: Acute (4) NSTEMI, initial episode of care: Status: Acute (5) DM type 2 (diabetes mellitus, type 2): Status: Chronic (6) Acute respiratory failure with hypoxia: Status: Acute (7) CHF exacerbation: Status: Acute Allergies/Procedures Done in Hospital Allergies varenicline tartrate [From Chantix] Allergy (Verified 07/22/21 22:23) makes loyd lubin Procedures: 2-D Echocardiogram and Dialysis Type of Care/Length of Stay Estimated LOS: More Than 30 Days Type of Care Needed: Skilled Rehab Potential: Fair Prognosis: Fair Additional Orders/Day of Discharge H&P will serve as current which was dated: 07/23/21 Day of Discharge: 07/27/21 Dietary and Speech Recommendations Dietitian Recommendations/Changes: Renal/carbohydrate-controlled diet; 120ml nepro TID w/ meals Discharge Plan Admission Admit Date/Time: 07/23/21 00:15 Primary Reason for Your Visit: MSSA bacteremia, resp failure, pneumococcal pneumonia Attending Provider: Steven Reyes Primary Care Provider: Jr Desouza Consulting Providers: Bruna Palacios ; Katie Hamilton ; Meir Monreal Instructions Additional Instructions / Restrictions: Give Linezolid for 14 days, then discontinue Discharge Orders/Prescriptions Prescriptions: New linezolid 600 mg tablet 600 mg PO Q12H 14 Days Qty: 28 RF: 0 acetaminophen [Tylenol] 325 mg Tablet 650 mg PO Q6H PRN PRN (Reason: Pain Score 1-10/Temp > 100.7 F) Qty: 1 RF: 0 carvedilol 3.125 mg Tablet 3.125 mg PO BID Qty: 0 RF: 0 Lantus U-100 Insulin 100 unit/mL solution 10 unit subcut BID Qty: 10 RF: 0 Continued ergocalciferol (vitamin D2) 1,250 mcg (50,000 unit) capsule 1,250 mcg PO QMONTH RF: 0 calcium acetate(phosphat bind) 667 mg capsule 2,001 mg PO TIDCM RF: 0 atorvastatin 10 MG tablet 10 mg PO QHS RF: 0 mycophenolate mofetil 500 MG tablet 500 mg PO BID RF: 0 Nephro-Lola 0.8 mg tablet 1 tab PO DAILY RF: 0 Discontinued Lokelma 5 gram powder in packet 5 g PO DAILY RF: 0 Referrals / Follow Up: Katie Hamilton DO [STAFF PHYSICIAN] - See Referral Note (as directed) Jr Desouza MD [Primary Care Provider] - Disposition Disposition (needs filled in before D/C Order can be placed): Residential Facility
[2021-07-27 11:51] LABS: Bedside Glucose 316 mg/dL (70-110)
--- NOTE | 2021-07-27 12:19 | CASEMGMT ---
MODESTO faxed orders to [facility]. MODESTO spoke with Marie and patient's daughter can transport him, but she won't be able to visit him as they had an employee that tested positive. There will be no visitation until next week. MODESTO called patient's daughter and let her know he will be discharged today. She said she could transport him, but she won't be able to be here until 530p. MODESTO told her SW will check to make sure this is okay. MODESTO also told her about the visitation being suspended until next week due to an employee testing positive. MODESTO will check with [employer]ola charger [employer] and get back to patient's daughter. Gina Meier STRATEGY ASSOCIATE ZHANNA
--- NOTE | 2021-07-27 13:35 | CASEMGMT ---
It is okay for patient to stay until his daughter gets off work at 530p. SW called patient's daughter and left her a voice mail letting her know this information. SW also notified patient. SW let patient know that there is no visitation at [facility] until next week due to an employee testing positive. MODESTO also notified Marie at [facility]. 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 Patient's daughter will transport him via private vehicle. Gina Meier EMERGENCY CARE ATTENDANTLoida CHAO
--- NOTE | 2021-07-27 14:26 | CASEMGMT ---
Call to Bran at [facility] to notify of discharge today, voices understanding and states pt will be run tomorrow at [facility]. Carmen BURGESS CM
[2021-07-27 16:35] LABS: Bedside Glucose 286 mg/dL (70-110)
--- NOTE | 2021-07-27 19:25 | PCM.DC.SUM ---
Providers Date of Admission: 07/23/21 Date of Discharge: 07/27/21 Primary Care Physician: Dr. Jr Desouza MD Consultations 07/23/21 01:12 Consult: Cardiology Routine Consulting Provider: Bruna Palacios Reason for Consult: NSTEMI EMERGENT Consult: No Notified: Yes Date Notified: 07/23/21 Time Notified: 06:45 Method of Notification: Text Consult: Nephrology Routine Consulting Provider: Katie Hamilton Reason for Consult: ESRD EMERGENT Consult: No MD Notified: Yes Date Notified: 07/23/21 Time Notified: 06:46 Method of Notification: Text 07/24/21 13:21 Consult: Infectious Disease Routine Consulting Provider: Meir Monreal Reason for Consult: Staph aureus and Strep Pneumonia EMERGENT Consult: No MD Notified: Yes Date Notified: 07/24/21 Time Notified: 13:31 Method of Notification: Answering Service Reason For Visit: ACUTE HYPOXIC RESPIRATORY FAILURE Diagnosis Discharge Diagnosis (1) ESRD (end stage renal disease) on dialysis: Status: Chronic Code(s): N18.6 - End stage renal disease; Z99.2 - Dependence on renal dialysis (2) Bacteremia: Status: Acute Code(s): R78.81 - Bacteremia (3) Pneumococcal pneumonia: Status: Acute Code(s): J13 - Pneumonia due to Streptococcus pneumoniae (4) NSTEMI, initial episode of care: Status: Acute Code(s): I21.4 - Non-ST elevation (NSTEMI) myocardial infarction (5) DM type 2 (diabetes mellitus, type 2): Status: Chronic Code(s): E11.9 - Type 2 diabetes mellitus without complications (6) Acute respiratory failure with hypoxia: Status: Acute Code(s): J96.01 - Acute respiratory failure with hypoxia (7) CHF exacerbation: Status: Acute Code(s): I50.9 - Heart failure, unspecified Plan: Final diagnosis: #1 methicillin sensitive staph aureus bacteremia #2 Streptococcus pneumoniae pneumonia #3 end-stage renal disease on dialysis #4 non-STEMI #5 type 2 diabetes #6 metabolic encephalopathy #7 acute hypoxic respiratory failure secondary to strep pneumonia #8 acute on chronic congestive heart failure with reduced ejection fraction Diastolic congestive heart failure was not present Medications at Discharge Home Medications atorvastatin 10 mg PO QHS 05/05/19 mycophenolate mofetil 500 mg PO BID 09/06/20 calcium acetate(phosphat bind) 667 mg capsule 2,001 mg PO TIDCM 11/03/20 ergocalciferol (vitamin D2) 1,250 mcg (50,000 unit) capsule 1,250 mcg PO QMONTH 11/03/20 Nephro-Lola 1 tab PO DAILY 07/01/21 acetaminophen [Tylenol] 650 mg PO Q6H PRN PRN #1 tab 07/27/21 carvedilol 3.125 mg PO BID #0 tab 07/27/21 insulin glargine [Lantus U-100 Insulin] 10 unit SUBCUT BID #10 ml 07/27/21 linezolid 600 mg PO Q12H 14 Days #28 tab 07/27/21 Hospital Course Procedures 2-D Echocardiogram Summary of Care Provided Minutes Spent on Discharge: 32 Hospital Course: 80-year-old white male was brought to the emergency room at [facility] after he was found lying in the hallway at his home. Patient apparently had been there all day. He had been discharged from rehab 1 week prior and sustained a fall after undergoing dialysis 3 days ago. Patient is a chronic renal failure patient and undergoes chronic dialysis. Patient was hypoxic for EMS at 72% on room air, he was placed on nonrebreather and he was noted to be febrile with a temperature of 102.7. Work-up in the emergency room included a chest x-ray which showed infiltrates throughout both lungs, patient's troponin was elevated at 1678, patient was admitted for acute hypoxic respiratory failure, he was seen in consultation by nephrology for dialysis, he was placed on antibiotics and seen in consultation by cardiology due to a non-STEMI. Patient's medication was adjusted and he underwent an echocardiogram which showed reduced ejection fraction of 37%, patient was treated for acute on chronic congestive heart failure with reduced ejection fraction. Patient was positive for methicillin sensitive staph aureus bacteremia, he was seen in consultation by infectious diseases, his urine antigen was positive for strep pneumoniae. Patient improved during his hospitalization. On 07/27/2021, patient was seen and examined: On examination he appeared in good health and spirits. Vital signs as documented. Skin warm and dry and without overt rashes. Neck without JVD, neck was supple, trachea midline, thyroid was normal. Lungs clear bilaterally, normal air movement was noted. Heart exam notable for regular rhythm, normal sounds and absence of murmurs, rubs or gallops. Abdomen unremarkable and without evidence of organomegaly, masses, or abdominal aortic enlargement. Bowel sounds are present, abdomen is not distended. Extremities nonedematous, no cyanosis was noted, no clubbing was noted. Neuro: Cranial nerves II through XII are grossly intact, no focal motor deficits were noted, sensation to light touch and pinprick intact, motor exam 5/5 throughout. Psych: Patient is alert and oriented x3, he does not appear anxious or depressed, he does not appear agitated. Patient was seen by PT and OT was felt to be a candidate for long-term admission, patient was discharged on 07/27/2021 to a long-term facility for inpatient rehab services in stable condition. Weight / BMI Weight Weight: 58.9 kg Body Mass Index (BMI) 18.1 ABG / Lab / Microbiology Data Result Diagrams: 07/25/21 04:48 07/25/21 04:48 Laboratory: Laboratory Results - last 24 hr 07/26/21 21:36: POC Glucose 210 H 07/27/21 05:08: APTT 52.4 H 07/27/21 05:08: Hep Bs Antigen Non-Reactive 07/27/21 06:42: POC Glucose 190 H 07/27/21 11:37: POC Glucose 316 H 07/27/21 16:17: POC Glucose 286 H Microbiology: Microbiology 07/27/21 12:04 Nasal Secretion SARS-CoV-2 Antigen (Rapid) - Final 07/25/21 12:35 Blood Culture (Wb) - Anticubital Right Blood Culture - Preliminary No growth in 48 hours. 07/24/21 14:23 Blood Culture (Wb) - Anticubital Right Blood Culture - Preliminary No growth in 48 hours. 07/23/21 05:17 Urine Catheter - Catheter Urine Culture - Final Culture exhibits no growth. 07/22/21 22:37 Blood Culture (Wb) - Right Wrist Blood Culture - Final Staphylococcus aureus 07/22/21 22:35 Blood Culture (Wb) - Anticubital Right Bacteria Detection (PCR) - Final Staphylococcus aureus 07/22/21 22:35 Blood Culture (Wb) - Anticubital Right Blood Culture - Final Staphylococcus aureus 07/23/21 05:17 Urine, Clean Catch Legionella Antigen - Final 07/23/21 05:17 Urine, Clean Catch Streptococcus pneumoniae Antigen (M - Final Streptococcus pneumonia Ag 07/23/21 00:23 Mucosa - Nasopharyngeal Respiratory Panel (PCR) - Final 07/22/21 22:38 Interface Orders SARS-CoV-2 Antigen (Rapid) - Final Meaningful Use Info Meaningful Use Diagnoses (Choose all that apply): CHF CHF HERNESTO/ARB ordered at discharge?: No Reason HERNESTO/ARB not ordered?: Worsening renal function Documented LVEF (%): 37 Discharge Plan Admission Admit Date/Time: 07/23/21 00:15 Primary Reason for Your Visit: MSSA bacteremia, resp failure, pneumococcal pneumonia Attending Provider: Steven Reyes Primary Care Provider: Jr Desouza Consulting Providers: Bruna Palacios ; Katie Hamilton ; Meir Monreal Instructions Additional Instructions / Restrictions: Give Linezolid for 14 days, then discontinue Discharge Orders/Prescriptions Prescriptions: New linezolid 600 mg tablet 600 mg PO Q12H 14 Days Qty: 28 RF: 0 acetaminophen [Tylenol] 325 mg Tablet 650 mg PO Q6H PRN PRN (Reason: Pain Score 1-10/Temp > 100.7 F) Qty: 1 RF: 0 carvedilol 3.125 mg Tablet 3.125 mg PO BID Qty: 0 RF: 0 Lantus U-100 Insulin 100 unit/mL solution 10 unit subcut BID Qty: 10 RF: 0 Continued ergocalciferol (vitamin D2) 1,250 mcg (50,000 unit) capsule 1,250 mcg PO QMONTH RF: 0 calcium acetate(phosphat bind) 667 mg capsule 2,001 mg PO TIDCM RF: 0 atorvastatin 10 MG tablet 10 mg PO QHS RF: 0 mycophenolate mofetil 500 MG tablet 500 mg PO BID RF: 0 Nephro-Lola 0.8 mg tablet 1 tab PO DAILY RF: 0 Discontinued Lokelma 5 gram powder in packet 5 g PO DAILY RF: 0 Referrals / Follow Up: Katie Hamilton DO [STAFF PHYSICIAN] - See Referral Note (as directed) Jr Desouza MD [Primary Care Provider] - Disposition Disposition (needs filled in before D/C Order can be placed): Intermediate Facility Charges/Coding Visit Charges Inpatient E&M: 91060 Disch Hosp
== END 2021-07-27 18:11 | disposition skilled nursing facility (03) | DRG 193 ==
LOC: ED 23:48 → PCU 07-23 00:28
PROVIDERS: Hospitalist; Internal Medicine; Internal Medicine Nephrology; Admitting Provider Internal Medicine; Emergency Provider Emergency Medicine; PCP Family Medicine; Visit Provider Internal Medicine
DX: J13 Pneumonia due to Streptococcus pneumoniae (principal); G93.41 Metabolic encephalopathy; J96.01 Acute respiratory failure with hypoxia; N18.6 End stage renal disease; E43 Unspecified severe protein-calorie malnutrition; I21.A1 Myocardial infarction type 2; I50.23 Acute on chronic systolic (congestive) heart failure; J44.0 Chronic obstructive pulmonary disease with (acute) lower respiratory infection; I13.2 Hypertensive heart and chronic kidney disease with heart failure and with stage 5 chronic kidney disease, or end stage renal disease; Z68.1 Body mass index [BMI] 19.9 or less, adult; R78.81 Bacteremia; B95.61 Methicillin susceptible Staphylococcus aureus infection as the cause of diseases classified elsewhere; I48.0 Paroxysmal atrial fibrillation; R53.81 Other malaise; D63.1 Anemia in chronic kidney disease; M25.511 Pain in right shoulder; W19.XXXA Unspecified fall, initial encounter; Y93.9 Activity, unspecified; Y92.9 Unspecified place or not applicable; E11.22 Type 2 diabetes mellitus with diabetic chronic kidney disease; E11.51 Type 2 diabetes mellitus with diabetic peripheral angiopathy without gangrene; G47.30 Sleep apnea, unspecified; Z66 Do not resuscitate; Z99.2 Dependence on renal dialysis; Z86.19 Personal history of other infectious and parasitic diseases; Z87.19 Personal history of other diseases of the digestive system; Z86.010 Personal history of colon polyps; Z86.73 Personal history of transient ischemic attack (TIA), and cerebral infarction without residual deficits; Z79.4 Long term (current) use of insulin; Z79.899 Other long term (current) drug therapy; F17.210 Nicotine dependence, cigarettes, uncomplicated
CPT/HCPCS: 36415; 70450; 71045; 73060; 80048; 80053; 80061; 81001; 82550; 82962; 83036; 83605; 83735; 83880; 84100; 84484; 85025; 85610; 85730; 87040; 87077; 87086; 87149; 87186; 87340; 87426; 87449; 87633; 87635; 87641; 90937; 93005; 93306; 94640; 94667; 94668; 97110; 97162; 97166; 97530; 97535; 97803; 99251; 99285; 99406; J7030; J7040; J7050; Q9957; U0005; A4216; G0257; G0463; J0696; J3490; Q5106; U0003

== ENCOUNTER → 2021-08-14 04:00 | Outpatient (REF) | payer MEDICARE, SELFPAY ==
[2021-08-14 06:43] LABS: Hematocrit 31.8 % (40-54); Hemoglobin 9.9 g/dL (13.0-16.5); Mean Corp Hgb Conc 31.1 g/dL (32-36); Mean Platelet Vol. 10.5 fl (6.2-12.0); Platelet Count 158 K/mm3 (150-450); RBC Distribution Width CV 16.7 % (11.6-14.6); RBC Distribution Width SD 64.6 fl (35.1-43.9); White Blood Count 7.4 K/mm3 (4.4-11.0)
[2021-08-14 07:06] LABS: Anion Gap 7 (5-15); BUN 71 mg/dL (7-18); BUN/Creat Ratio 9.1 RATIO (10-20); Calcium,Total 9.3 mg/dL (8.5-10.1); Chloride 99 mmol/L (98-107); Creatinine, Serum 7.79 mg/dL (0.70-1.30); EST Glomerular Filtration Rate 7 mL/min (>60); Est Glom Filt Rate - Afr Amer 9 mL/min (>60); Glucose 92 mg/dL (74-106); Potassium 6.8 mmol/L (3.5-5.1); Sodium Level 135 mmol/L (136-145)
== END ==
LOC: OLS.SW500 04:00
PROVIDERS: PCP Family Medicine; Visit Provider Family Medicine
DX: E11.9 Type 2 diabetes mellitus without complications (principal); D64.9 Anemia, unspecified; J44.9 Chronic obstructive pulmonary disease, unspecified; E78.5 Hyperlipidemia, unspecified
CPT/HCPCS: 36415; 80048; 85027

== ENCOUNTER → 2021-08-15 05:00 | Outpatient (REF) | payer MEDICARE, SELFPAY ==
[2021-08-15 08:57] LABS: Anion Gap 8 (5-15); BUN 55 mg/dL (7-18); BUN/Creat Ratio 9.1 RATIO (10-20); Chloride 98 mmol/L (98-107); Creatinine, Serum 6.03 mg/dL (0.70-1.30); EST Glomerular Filtration Rate 10 mL/min (>60); Est Glom Filt Rate - Afr Amer 12 mL/min (>60); Glucose 78 mg/dL (74-106); Potassium 5.5 mmol/L (3.5-5.1); Sodium Level 135 mmol/L (136-145)
== END ==
LOC: OLS.SW500 05:00
PROVIDERS: PCP Family Medicine; Visit Provider Family Medicine
DX: E87.5 Hyperkalemia (principal)
CPT/HCPCS: 36415; 80048

== ENCOUNTER → 2021-08-21 05:00 | Outpatient (REF) | payer MEDICARE, SELFPAY ==
[2021-08-21 07:22] LABS: Hematocrit 27.3 % (40-54); Hemoglobin 8.6 g/dL (13.0-16.5); Mean Corp Hgb Conc 31.5 g/dL (32-36); Mean Corpuscular Hgb 33.1 pg (27.0-32.0); Mean Platelet Vol. 10.6 fl (6.2-12.0); POSITIVE MORPHOLOGY YES; Platelet Count 206 K/mm3 (150-450); RBC Distribution Width SD 69.5 fl (35.1-43.9); White Blood Count 8.8 K/mm3 (4.4-11.0)
[2021-08-21 07:32] LABS: Anion Gap 7 (5-15); BUN 81 mg/dL (7-18); BUN/Creat Ratio 11.4 RATIO (10-20); Calcium,Total 8.8 mg/dL (8.5-10.1); Chloride 98 mmol/L (98-107); EST Glomerular Filtration Rate 8 mL/min (>60); Est Glom Filt Rate - Afr Amer 10 mL/min (>60); Glucose 55 mg/dL (74-106); Potassium 5.9 mmol/L (3.5-5.1); Sodium Level 133 mmol/L (136-145)
[2021-08-21 07:33] LABS: Scan Indicated on CBC? Y/N YES- FLAGS NOTED
== END ==
LOC: OLS.SW500 05:00
PROVIDERS: PCP Family Medicine; Referring Provider Family Medicine; Visit Provider Family Medicine
DX: D64.9 Anemia, unspecified (principal); E11.22 Type 2 diabetes mellitus with diabetic chronic kidney disease; N18.6 End stage renal disease
CPT/HCPCS: 36415; 80048; 85027

== ENCOUNTER → 2021-08-22 14:00 | Outpatient (REF) | payer MEDICARE, SELFPAY ==
[2021-08-22 14:46] LABS: Potassium 4.3 mmol/L (3.5-5.1)
== END ==
LOC: OLS.SW500 14:00
PROVIDERS: PCP Family Medicine; Visit Provider Family Medicine
DX: E87.5 Hyperkalemia (principal)
CPT/HCPCS: 36415; 84132

== ENCOUNTER → 2021-09-21 07:00 | Outpatient (REF) | payer MEDICARE, MEDICAID, SELFPAY ==
[2021-09-21 08:15] LABS: Potassium 5.1 mmol/L (3.5-5.1)
== END ==
LOC: OLS.SW500 07:00
PROVIDERS: PCP Family Medicine; Visit Provider Family Medicine
DX: N18.6 End stage renal disease (principal)
CPT/HCPCS: 36415; 84132

== ENCOUNTER → 2021-09-27 04:00 | Outpatient (REF) | payer MEDICARE, SELFPAY ==
[2021-09-27 08:39] LABS: Hematocrit 33.4 % (40-54); Hemoglobin 10.9 g/dL (13.0-16.5); Mean Corp Hgb Conc 32.6 g/dL (32-36); Mean Corpuscular Hgb 34.2 pg (27.0-32.0); Mean Corpuscular Volume 104.7 fL (80-94); Mean Platelet Vol. 10.1 fl (6.2-12.0); Platelet Count 215 K/mm3 (150-450); RBC Distribution Width CV 15.6 % (11.6-14.6); RBC Distribution Width SD 60.7 fl (35.1-43.9); Red Blood Count 3.19 M/mm3 (4.6-6.2); White Blood Count 5.5 K/mm3 (4.4-11.0)
[2021-09-27 08:55] LABS: Anion Gap 10 (5-15); BUN 61 mg/dL (7-18); BUN/Creat Ratio 12.4 RATIO (10-20); Calcium,Total 9.1 mg/dL (8.5-10.1); Chloride 96 mmol/L (98-107); EST Glomerular Filtration Rate 12 mL/min (>60); Est Glom Filt Rate - Afr Amer 15 mL/min (>60); Glucose 85 mg/dL (74-106); Potassium 4.7 mmol/L (3.5-5.1); Sodium Level 135 mmol/L (136-145)
== END ==
LOC: OLS.SW500 04:00
PROVIDERS: PCP Family Medicine; Referring Provider Family Medicine; Visit Provider Family Medicine
DX: E11.22 Type 2 diabetes mellitus with diabetic chronic kidney disease (principal); N18.6 End stage renal disease; D64.9 Anemia, unspecified
CPT/HCPCS: 36415; 80048; 85027

== ENCOUNTER 2021-10-10 05:43 | Emergency (ER) | payer MEDICARE, SELFPAY ==
[2021-10-10 05:44] VITALS: BP 224/93; PULSE 77; RESP 25; TEMP 36.4; O2SAT 93; BMI 19.8
--- NOTE | 2021-10-10 05:48 | CT_ITS ---
EXAM: CT HEAD WITHOUT INTRAVENOUS CONTRAST : 1940 CLINICAL INDICATION: mental status change TECHNIQUE: Multiple axial images were obtained of the head without intravenous contrast. This CT exam was performed using one or more of the following dose reduction techniques: automated exposure control, adjustment of the mA and/or kV according to patient size, and/or use of iterative reconstruction technique. This report was created using [employer] report generation technology. COMPARISON: 07/22/21 FINDINGS: BRAIN AND EXTRA-AXIAL SPACES: Diffuse cerebral volume loss. Periventricular small vessel chronic ischemic change. No intra- or extra-axial hemorrhage. No intracranial mass or mass effect. Posterior fossa structures are unremarkable. No hydrocephalus. Basal cisterns are patent. BONES/JOINTS: Unremarkable. No discrete lytic or blastic abnormalities. VASCULATURE: Arterial calcifications. SINUSES: Unremarkable as visualized. Clear. MASTOID AIR CELLS: Unremarkable. Clear. ORBITS: Visualized globes, extraocular muscles, optic nerves and retrobulbar fat appear unremarkable. CT/Brain/Head without Contrast IMPRESSION: 1. No acute intracranial abnormalities. 2. Age-related changes. Individualized dose optimization techniques were used for this CT. at 0617 Reported and signed by: Jorden Aldana MD Electronically Signed: Jorden Aldana MD at 6:16 EST Tel , Service support ,
--- NOTE | 2021-10-10 05:49 | CT_ITS ---
History: fall, pain. TECHNIQUE: Helically acquired images were obtained of the cervical spine. 2-D reformatted images were reviewed. A radiation dose optimization technique was used for the scan. # of images incl. paperwork: 442. IV contrast dosage and agent: None. COMPARISON: None. FINDINGS: VERTEBRAE: No evidence of acute fracture or other acute injury. Old C6 spinous process fracture at the tip. Vertebral body heights maintained. Posterior elements intact. ALIGNMENT: Degenerative anterolisthesis of C3 on C4 and C6 on C7. Preservation of the cervical lordosis. INTERVERTEBRAL DISCS: Diffuse degenerative changes of the intervertebral discs. SOFT TISSUES: No prevertebral soft tissue thickening. Carotid artery calcifications. CT/Spine Cervical without Contras IMPRESSION: No evidence for acute fracture or dislocation in the cervical spine. Degenerative changes. Individualized dose optimization techniques were used for this CT. at 0619 Reported and signed by: Jorden Aldana MD Electronically Signed: Jorden Aldana MD at 6:19 EST Tel , Service support ,
--- NOTE | 2021-10-10 06:07 | ED.RN ---
BACK FROM CAT SCAN.
[2021-10-10 06:08] LABS: Absolute Lymphocyte Count 0.64 X10^3/uL (0.83-4.51); Absolute Neutrophil Count 9.8 X10^3/uL (2.0-7.7); Basophil# 0.02 X10^3/uL; Basophil% 0.2 % (0-1); Eosinophil# 0.01 X10^3/uL; Eosinophils% 0.1 % (0-5); Hematocrit 42.2 % (40-54); Hemoglobin 13.5 g/dL (13.0-16.5); Lymphocyte # 0.64 X10^3/ul (0.83-4.51); Lymphocyte % 5.4 % (19-41); Mean Corpuscular Volume 103.2 fL (80-94); Mean Platelet Vol. 10.5 fl (6.2-12.0); Monocyte# 1.45 X10^3/uL; Monocyte% 12.1 % (0-10); NRBC Flagged by Analyzer 0 % (0-5); Neutrophil # 9.78 X10^3/uL (2.7-7.7); Neutrophil % 81.8 % (47-70); Platelet Count 216 K/mm3 (150-450); RBC Distribution Width CV 13.8 % (11.6-14.6); RBC Distribution Width SD 53.1 fl (35.1-43.9); Red Blood Count 4.09 M/mm3 (4.6-6.2)
--- NOTE | 2021-10-10 06:09 | EDS_ITS ---
HPI HPI - Fall History of Present Illness Chief Complaint: Fall Narrative Narrative: History and physical is limited secondary to patient condition. Patient presents via EMS status post fall. He is in a prison facility and is DO NOT RESUSCITATE [employer] Care arrest. He was an unwitnessed fall and was found on the floor. EMS was unable to disclose when last known well time was. It was unknown how long he had been on the floor. He presents with fall and mental status change. Per RN, he is usually alert and oriented x4. Currently he is unresponsive, and is snoring. His blood sugar was reported to be 70. [facility] Medical History MOODY (acute kidney injury) Anemia Asthma Atrial fibrillation Benign essential HTN Brain aneurysm Chronic renal failure, stage 5 Colon polyps COPD (chronic obstructive pulmonary disease) CVA (cerebral vascular accident) Diabetes Dialysis complication Dialysis patient Fall Febrile illness, acute Fistula Hepatitis C History of GI bleed Leukocytosis LFT elevation Metabolic encephalopathy Multifocal pneumonia NSTEMI, initial episode of care PVD (peripheral vascular disease) Sleep apnea Tobacco use disorder Troponin level elevated Type II diabetes mellitus, uncontrolled Home Medications atorvastatin 10 mg PO QHS 05/05/19 [History Last Taken 06/29/21 21:00] mycophenolate mofetil 500 mg PO BID 09/06/20 [History Last Taken 06/29/21] calcium acetate(phosphat bind) 667 mg capsule 2,001 mg PO TIDCM 11/03/20 [History Last Taken 06/29/21 17:00] ergocalciferol (vitamin D2) 1,250 mcg (50,000 unit) capsule 1,250 mcg PO QMONTH 11/03/20 [History Last Taken 06/14/21] Nephro-Lola 1 tab PO DAILY 07/01/21 [History Last Taken 06/29/21 17:00] carvedilol 3.125 mg PO BID #0 tab 07/27/21 [Rx Last Taken Unknown] insulin glargine [Lantus U-100 Insulin] 10 unit SUBCUT BID #10 ml 07/27/21 [Rx Last Taken Unknown] acetaminophen [Tylenol] 650 mg PO Q4H PRN PRN 10/10/21 [History Last Taken Unknown] calcium citrate 0.25 mg PO QODAY 10/10/21 [History Last Taken Unknown] calcium polycarbophil [Fiber-Caps (ca polycarbophil)] 1,250 mg PO DAILY 10/10/21 [History Last Taken Unknown] Allergy/AdvReac Type Severity Reaction Status Date / Time varenicline tartrate Allergy makes me Verified 07/22/21 22:23 [From Chantix] loyd oseguera Family History Mother CVA (cerebral vascular accident) Diabetes Hypertension Father Colon cancer Diabetes Brother Diabetes Surgical History history insertion dialysis catheter (~11/04/20) History of cataract extraction History of colectomy History of colonoscopy (~06/2020) History of surgery on left wrist History of vein stripping Social History Smoking Status: Current every day smoker tobacco type: cigarettes ROS ROS ED ROS Narrative Unable to obtain secondary to patient condition Review of Systems ROS Unobtainable: due to mental status EXAM Physical Exam Narrative Exam Narrative: Afebrile. Vital signs noted. HEENT: Normocephalic. Atraumatic. In c-collar. PERRL, EOMI. Neck soft and supple. No point tenderness or step off. Cardiovascular: Regular rate and rhythm. No murmurs, rubs, or gallops appreciated. Respiratory: No tachypnea. Lungs clear to auscultation bilaterally. Gastrointestinal: Abdomen soft, nontender, with normoactive bowel sounds. No rebound or guarding. Neurological: Awakens to sternal rub. Moves all extremities. Will not allow dropped arm to fall on face. Skin: No rash. Normal color. No pallor. Musculoskeletal: No pedal edema. Full range of motion extremities. Const Vital Signs: 10/10/21 05:44 10/10/21 06:04 10/10/21 06:25 Temperature 97.6 F L Temperature Source Temporal Pulse Rate 77 Respiratory Rate 25 H Blood Pressure 224/93 H 232/99 H Blood Pressure Mean 136 143 Pulse Ox 93 Oxygen Delivery Method Room Air Room Air MDM MDM MDM Narrative Medical decision making narrative: Comprehensive work-up was pursued. His sugar was rechecked and was low at 55. Will be given an amp of D50. However, on his BMP/CMP his glucose was only 27. LFTs are low. Creatinine elevated at 6.39 which is his baseline and demonstrates his need for dialysis/end-stage renal disease.. He has a normal anion gap of 10. Chloride slightly low at 97. He has an elevated white count of 12.0 which I think is nonspecific, hemoglobin normal at 13.5. Normal platelet count. CT of the brain shows chronic changes but no acute hemorrhage. CT of the C-spine also shows chronic changes but no evidence of acute fracture. I do think that his mental status change was secondary to hypoglycemia. After his amp of D50, he is awake, alert, and talking. He is oriented x3. His repeat blood sugar was in the 120s after D50. He will be given a meal to eat. He is missing dialysis currently, but he has a normal potassium. Ammonia is negative. CK is also negative. Troponin negative in the 50s, but he does have end-stage renal disease. At this point in time, he will be signed out to the oncoming physician, Dr. Ricco Liu who will recheck his blood sugar after his meal to make sure that it is consistently high. I feel that with his negative work-up as long as his blood sugar remains elevated that he could be discharged back to the prison facility. He is in stable condition. Lab Data Attestation: I reviewed the patient's lab results. Labs: Laboratory Results - last 24 hr 10/10/21 10/10/21 10/10/21 06:00 06:00 06:00 WBC 12.0 H RBC 4.09 L Hgb 13.5 Hct 42.2 MCV 103.2 H MCH 33.0 H MCHC 32.0 RDW Std Deviation 53.1 H RDW Coeff of Mihaela 13.8 Plt Count 216 MPV 10.5 Immature Gran % (Auto) 0.400 Neut % (Auto) 81.8 H Lymph % (Auto) 5.4 L [place] % (Auto) 12.1 H Eos % (Auto) 0.1 Baso % (Auto) 0.2 Absolute Neuts (auto) 9.8 H Absolute Lymphs (auto) 0.64 L Nucleated RBC % 0 Sodium 137 Potassium 4.5 Chloride 97 L Carbon Dioxide 30.0 Anion Gap 10 BUN 70 H Creatinine 6.39 H Estim Creat Clear Calc 7.95 Est GFR (MDRD) Af Amer 11 L Est GFR (MDRD) Non-Af 9 L BUN/Creatinine Ratio 11.0 Glucose 27 L* Calcium 9.9 Total Bilirubin 0.70 AST 14 L ALT 17 Alkaline Phosphatase 67 Ammonia 13.0 Total Creatine Kinase 56 Troponin I High Sens 57 Total Protein 7.7 Albumin 3.4 Globulin 4.3 H Albumin/Globulin Ratio 0.8 L Urine Color Urine Clarity Urine pH Ur Specific [place] Urine Protein Urine Glucose (UA) Urine Ketones Urine Occult Blood Urine Nitrite Urine Bilirubin Urine Urobilinogen Ur Leukocyte Esterase Urine RBC Urine WBC Ur Squamous Epith Cells Urine Bacteria Urine Mucus POC Glucose 10/10/21 10/10/21 10/10/21 06:11 06:22 06:49 WBC RBC Hgb Hct MCV MCH MCHC RDW Std Deviation RDW Coeff of Mihaela Plt Count MPV Immature Gran % (Auto) Neut % (Auto) Lymph % (Auto) [place] % (Auto) Eos % (Auto) Baso % (Auto) Absolute Neuts (auto) Absolute Lymphs (auto) Nucleated RBC % Sodium Potassium Chloride Carbon Dioxide Anion Gap BUN Creatinine Estim Creat Clear Calc Est GFR (MDRD) Af Amer Est GFR (MDRD) Non-Af BUN/Creatinine Ratio Glucose Calcium Total Bilirubin AST ALT Alkaline Phosphatase Ammonia Total Creatine Kinase Troponin I High Sens Total Protein Albumin Globulin Albumin/Globulin Ratio Urine Color Yellow Urine Clarity Clear Urine pH 8.0 Ur Specific [place] 1.010 Urine Protein 500 H Urine Glucose (UA) Normal Urine Ketones Negative Urine Occult Blood 10 H Urine Nitrite Negative Urine Bilirubin Negative Urine Urobilinogen Normal Ur Leukocyte Esterase Negative Urine RBC 0 SEEN Urine WBC 0 SEEN Ur Squamous Epith Cells 0 SEEN Urine Bacteria 0 SEEN Urine Mucus 0 SEEN POC Glucose 55 L 125 H 10/10/21 07:55 WBC RBC Hgb Hct MCV MCH MCHC RDW Std Deviation RDW Coeff of Mihaela Plt Count MPV Immature Gran % (Auto) Neut % (Auto) Lymph % (Auto) [place] % (Auto) Eos % (Auto) Baso % (Auto) Absolute Neuts (auto) Absolute Lymphs (auto) Nucleated RBC % Sodium Potassium Chloride Carbon Dioxide Anion Gap BUN Creatinine Estim Creat Clear Calc Est GFR (MDRD) Af Amer Est GFR (MDRD) Non-Af BUN/Creatinine Ratio Glucose Calcium Total Bilirubin AST ALT Alkaline Phosphatase Ammonia Total Creatine Kinase Troponin I High Sens Total Protein Albumin Globulin Albumin/Globulin Ratio Urine Color Urine Clarity Urine pH Ur Specific [place] Urine Protein Urine Glucose (UA) Urine Ketones Urine Occult Blood Urine Nitrite Urine Bilirubin Urine Urobilinogen Ur Leukocyte Esterase Urine RBC Urine WBC Ur Squamous Epith Cells Urine Bacteria Urine Mucus POC Glucose 80 Radiography Diagnostic Testing: Clinical Impression(s) from Imaging Studies Brain CT 10/10/21 05:48 IMPRESSION: 1. No acute intracranial abnormalities. 2. Age-related changes. Individualized dose optimization techniques were used for this CT. at 0617 Reported and signed by: Jorden Aldana MD Electronically Signed: Jorden Aldana MD at 6:16 EST Tel , Service support , Cervical Spine CT 10/10/21 05:49 IMPRESSION: No evidence for acute fracture or dislocation in the cervical spine. Degenerative changes. Individualized dose optimization techniques were used for this CT. at 0619 Reported and signed by: Jorden Aldana MD Electronically Signed: Jorden Aldana MD at 6:19 EST Tel , Service support , Discharge Plan Triage Chief Complaint: Fall ED Provider: Kyle Parry Dx/Rx/DC Orders Clinical Impression: Hypoglycemia, Fall, Mental status change resolved Prescriptions: No Action ergocalciferol (vitamin D2) 1,250 mcg (50,000 unit) capsule 1,250 mcg PO QMONTH RF: 0 calcium acetate(phosphat bind) 667 mg capsule 2,001 mg PO TIDCM RF: 0 atorvastatin 10 MG tablet 10 mg PO QHS RF: 0 mycophenolate mofetil 500 MG tablet 500 mg PO BID RF: 0 Nephro-Lola 0.8 mg tablet 1 tab PO DAILY RF: 0 carvedilol 3.125 mg Tablet 3.125 mg PO BID Qty: 0 RF: 0 Lantus U-100 Insulin 100 unit/mL solution 10 unit subcut BID Qty: 10 RF: 0 calcium polycarbophil [Fiber-Caps (ca polycarbophil)] 625 mg Tablet 1,250 mg PO DAILY RF: 0 calcium citrate 150 mg Capsule 0.25 mg PO QODAY RF: 0 acetaminophen [Tylenol] 325 mg tablet 650 mg PO Q4H PRN PRN (Reason: Pain Score 1-10/Temp > 100.7 F) RF: 0 Primary Care Provider: Jr Desouza Referrals: Jr Desouza MD [Primary Care Provider] -
[2021-10-10 06:16] LABS: Bedside Glucose 55 mg/dL (70-110)
[2021-10-10] MEDS: Dextrose 50%-Water 25 GM/50 ML DISP.SYRIN IV (06:18)
[2021-10-10 06:25] VITALS: BP 232/99
--- NOTE | 2021-10-10 06:25 | ED.RN ---
PT AWAKE AND TALKING AFTER D50 GIVEN.A/OX4.
[2021-10-10 06:26] LABS: Bacteria 0 SEEN /hpf (None Seen); Mucous, Urine 0 SEEN /hpf (<or=2+); Red Blood Cells-Urine 0 SEEN /hpf (0-5); Squamous Epithelial Cells - UA 0 SEEN /hpf (0-5); White Blood Cells 0 SEEN /hpf (0-5)
[2021-10-10 06:37] LABS: Color, Urine Yellow (Yellow); Glucose, Dipstick Normal (Normal); Ketone-Dipstick Negative (Negative); Leukocyte Esterase-Dipstick Negative /ul (Negative); Nitrite-Dipstick Negative (Negative); Occult Blood-Urine 10 /ul (Negative); Protein-Dipstick 500 mg/dl (Negative); Urine Bilirubin Dipstick Negative (Negative); Urine Clarity Clear (Clear); Urine Urobilinogen Normal (Normal)
[2021-10-10 06:48] LABS: ALB/GLOB Ratio 0.8 RATIO (0.9-2.4); AST(SGOT) 14 U/L (15-37); Alanine Aminotransfer ALT/SGPT 17 U/L (16-61); Albumin, Serum 3.4 g/dL (3.2-5.0); Alkaline Phosphatase 67 U/L (45-117); Anion Gap 10 (5-15); BUN 70 mg/dL (7-18); CPK Total, Creatine Kinase 56 U/L (39-308); Calcium,Total 9.9 mg/dL (8.5-10.1); Chloride 97 mmol/L (98-107); Creatinine, Serum 6.39 mg/dL (0.70-1.30); EST Glomerular Filtration Rate 9 mL/min (>60); Est Glom Filt Rate - Afr Amer 11 mL/min (>60); Estimated Creatinine Clearance 7.95 ml/min; Globulin 4.3 g/dL (2.2-4.2); Glucose 27 mg/dL (74-106); Potassium 4.5 mmol/L (3.5-5.1); Protein, Total 7.7 g/dL (6.4-8.2); Sodium Level 137 mmol/L (136-145); Troponin-I HS 57 pg/mL (3.0-78.0)
[2021-10-10 06:55] LABS: Bedside Glucose 125 mg/dL (70-110)
[2021-10-10 08:00] LABS: Bedside Glucose 80 mg/dL (70-110)
[2021-10-10 08:08] VITALS: BP 156/76; PULSE 80; RESP 18; O2SAT 98
[2021-10-10 09:36] LABS: Bedside Glucose 142 mg/dL (70-110)
[2021-10-10 11:50] VITALS: BP 147/78; PULSE 71; RESP 16; O2SAT 98
== END 2021-10-10 11:50 | disposition home or self-care (01) ==
PROVIDERS: Emergency Provider Emergency Medicine; PCP Family Medicine
DX: E11.649 Type 2 diabetes mellitus with hypoglycemia without coma (principal); W19.XXXA Unspecified fall, initial encounter; Y93.9 Activity, unspecified; Y92.129 Unspecified place in nursing home as the place of occurrence of the external cause; E11.22 Type 2 diabetes mellitus with diabetic chronic kidney disease; E11.51 Type 2 diabetes mellitus with diabetic peripheral angiopathy without gangrene; G47.30 Sleep apnea, unspecified; I12.0 Hypertensive chronic kidney disease with stage 5 chronic kidney disease or end stage renal disease; N18.6 End stage renal disease; I48.91 Unspecified atrial fibrillation; I25.2 Old myocardial infarction; I67.1 Cerebral aneurysm, nonruptured; J44.9 Chronic obstructive pulmonary disease, unspecified; Z99.2 Dependence on renal dialysis; Z66 Do not resuscitate; Z86.73 Personal history of transient ischemic attack (TIA), and cerebral infarction without residual deficits; Z87.19 Personal history of other diseases of the digestive system; Z87.01 Personal history of pneumonia (recurrent); Z79.4 Long term (current) use of insulin; Z79.899 Other long term (current) drug therapy; F17.210 Nicotine dependence, cigarettes, uncomplicated
CPT/HCPCS: 70450; 72125; 80053; 81001; 82140; 82550; 82962; 84484; 85025; 87426; 96374; 99285; A4216

== ENCOUNTER → 2021-10-11 04:00 | Outpatient (REF) | payer MEDICARE, SELFPAY ==
[2021-10-11 07:46] LABS: Hemoglobin 11.3 g/dL (13.0-16.5); Mean Corp Hgb Conc 32.3 g/dL (32-36); Mean Corpuscular Hgb 33.2 pg (27.0-32.0); Mean Corpuscular Volume 102.9 fL (80-94); Mean Platelet Vol. 10.6 fl (6.2-12.0); Platelet Count 185 K/mm3 (150-450); RBC Distribution Width CV 14.1 % (11.6-14.6); RBC Distribution Width SD 53.4 fl (35.1-43.9); White Blood Count 8.8 K/mm3 (4.4-11.0)
[2021-10-11 07:59] LABS: Anion Gap 11 (5-15); BUN 82 mg/dL (7-18); BUN/Creat Ratio 11.3 RATIO (10-20); Calcium,Total 8.9 mg/dL (8.5-10.1); Chloride 94 mmol/L (98-107); Creatinine, Serum 7.26 mg/dL (0.70-1.30); EST Glomerular Filtration Rate 8 mL/min (>60); Est Glom Filt Rate - Afr Amer 9 mL/min (>60); Glucose 59 mg/dL (74-106); Potassium 4.9 mmol/L (3.5-5.1); Sodium Level 132 mmol/L (136-145)
== END ==
LOC: OLS.SW500 04:00
PROVIDERS: PCP Family Medicine; Referring Provider Family Medicine; Visit Provider Family Medicine
DX: D72.829 Elevated white blood cell count, unspecified (principal)
CPT/HCPCS: 36415; 80048; 85027

== ENCOUNTER 2021-10-23 05:00 | Outpatient (REF) | payer MEDICARE, MEDICAID, SELFPAY ==
[2021-10-23 09:07] LABS: Potassium 5.9 mmol/L (3.5-5.1)
[2021-10-23 11:00] LABS: Potassium 2.8 mmol/L (3.5-5.1)
== END 2021-10-23 23:59 | disposition home or self-care (01) ==
LOC: OLS.SW500 05:00
PROVIDERS: PCP Family Medicine; Visit Provider Family Medicine
DX: N18.6 End stage renal disease (principal)
CPT/HCPCS: 36415; 84132

== ENCOUNTER → 2021-10-26 04:00 | Outpatient (REF) | payer MEDICARE, MEDICAID, SELFPAY ==
[2021-10-26 07:32] LABS: Hematocrit 28.2 % (40-54); Hemoglobin 9.1 g/dL (13.0-16.5); Mean Corp Hgb Conc 32.3 g/dL (32-36); Mean Corpuscular Volume 102.2 fL (80-94); Mean Platelet Vol. 10.8 fl (6.2-12.0); Platelet Count 196 K/mm3 (150-450); RBC Distribution Width CV 13.1 % (11.6-14.6); RBC Distribution Width SD 48.7 fl (35.1-43.9); Red Blood Count 2.76 M/mm3 (4.6-6.2)
[2021-10-26 07:53] LABS: Anion Gap 8 (5-15); BUN 57 mg/dL (7-18); BUN/Creat Ratio 12.1 RATIO (10-20); Calcium,Total 8.6 mg/dL (8.5-10.1); Chloride 96 mmol/L (98-107); Creatinine, Serum 4.71 mg/dL (0.70-1.30); EST Glomerular Filtration Rate 13 mL/min (>60); Est Glom Filt Rate - Afr Amer 16 mL/min (>60); Glucose 83 mg/dL (74-106); Potassium 5.2 mmol/L (3.5-5.1); Sodium Level 134 mmol/L (136-145)
[2021-10-30 06:15] LABS: Cholesterol 68 mg/dL (200); High Density Lipoprotein 37 mg/dL; Triglycerides 35 mg/dL; Very Low Density Lipoprotein 7 mg/dL (5-40)
[2021-10-30 08:11] LABS: Hemoglobin A1c 5.9 % (3.8-5.6)
== END ==
LOC: OLS.SW500 04:00
PROVIDERS: PCP Family Medicine; Visit Provider Family Medicine
DX: D64.9 Anemia, unspecified (principal); E11.22 Type 2 diabetes mellitus with diabetic chronic kidney disease; N18.6 End stage renal disease
CPT/HCPCS: 36415; 80048; 80061; 83036; 85027

== ENCOUNTER 2021-11-01 08:30 | Day surgery (SDC) | payer MEDICARE, MEDICAID, SELFPAY ==
[2021-10-31 15:45] VITALS: BMI 17.0
--- NOTE | 2021-11-01 07:28 | HP.PCM_ITS ---
History and Physical Date of Admission: 11/01/21 [facility] [address] [place] [address] OFFICE VISIT Date of Service: 10/26/21 MR#:[id number] Acct:[id number] Name: ABEL SOLIS Rep #:[id number] :1940 Provider: CHESTER Sibley Age/Sex: 80/M Location:[facility] Status:Signed Intake Vital Signs 10/26/21 14:14 Height 5 ft 8 in Weight: 112 lb BMI 17.0 BP 161/77 H Blood Pressure Location Rt brachial Position Sitting Respiration 18 Intake Visit Reasons: fistulagram Chief Complaint: check fistula Chain Hooker Required: No Is patient in pain?: No Allergies varenicline tartrate [From Chantix] Allergy (Verified 10/26/21 14:02) makes me weird, hallucinations Medications atorvastatin 10 mg PO QHS 05/05/19 [History Confirmed 10/31/21] mycophenolate mofetil 500 mg PO BID 09/06/20 [History Confirmed 10/31/21] calcium acetate(phosphat bind) 667 mg capsule 2,001 mg PO TIDCM 11/03/20 [History Confirmed 10/31/21] ergocalciferol (vitamin D2) 1,250 mcg (50,000 unit) capsule 1,250 mcg PO QMONTH 11/03/20 [History Confirmed 10/31/21] Nephro-Lola 1 tab PO DAILY 07/01/21 [History Confirmed 10/31/21] carvedilol 3.125 mg PO BID #0 tab 07/27/21 [Rx Confirmed 10/31/21] insulin glargine [Lantus U-100 Insulin] 10 unit SUBCUT BID #10 ml 07/27/21 [Rx Confirmed 10/31/21] acetaminophen [Tylenol] 650 mg PO Q4H PRN PRN 10/10/21 [History Confirmed 10/31/21] calcium citrate 0.25 mg PO QODAY 10/10/21 [History Confirmed 10/31/21] calcium polycarbophil [Fiber-Caps (ca polycarbophil)] 1,250 mg PO DAILY 10/10/21 [History Confirmed 10/31/21] B-complex with vitamin C 1 tab PO DAILY 10/26/21 [History Confirmed 10/31/21] aspirin 81 mg tablet,delayed release 81 mg PO DAILY 10/26/21 [History Confirmed 10/31/21] fiber 1 cap PO DAILY 10/26/21 [History Confirmed 10/31/21] [facility] Medical History (Updated 11/01/21 @ 07:27 by Luisa MASSEY, PAVladC) MOODY (acute kidney injury) Anemia Asthma Atrial fibrillation Benign essential HTN Brain aneurysm Chronic renal failure, stage 5 Colon polyps COPD (chronic obstructive pulmonary disease) CVA (cerebral vascular accident) Diabetes Dialysis complication Dialysis patient Fall Febrile illness, acute Fistula Hepatitis C History of GI bleed Leukocytosis LFT elevation Metabolic encephalopathy Multifocal pneumonia NSTEMI, initial episode of care Problem with dialysis access PVD (peripheral vascular disease) Sleep apnea Tobacco use disorder Troponin level elevated Type II diabetes mellitus, uncontrolled Surgical History history insertion dialysis catheter (~11/04/20) History of cataract extraction History of colectomy History of colonoscopy (~06/2020) History of surgery on left wrist History of vein stripping Family History Mother CVA (cerebral vascular accident) Diabetes Hypertension Father Colon cancer Diabetes Brother Diabetes Social History Smoking Status: Current every day smoker tobacco type: cigarettes HPI: ABEL SOLIS, is a 80 M who presents to the office today for prolonged post-treatment bleeds. Patient has a left upper extremity brachial to cephalic arteriovenous fistula which was created on 11/30/20. He has not had any previous interventions on his fistula. He denies pain at the fistula site. He states he has to hold pressure the entire day after the treatment is completed. He notes even the following day he has difficult removing the dressing due to the access sites continuing to bleed. He currently resides in a half-way at [facility] [place]. He dialyzes on M,T,W and F. He is maintained on a daily 81 mg aspirin. ROS General General: Yes weight change and fatigue; No appetite, colon cancer, breast cancer or weakness HEENT HEENT: No difficulty swallowing, eye injury, eye surgery, swollen glands or hoarseness Endo Endocrine: Yes diabetes mellitus; No thyroid disease, thyroid cancer, Hair loss, heat intolerance or cold intolerance Skin Skin: No rash or changing moles Breast Breast: No left breast lump, right breast lump, nipple discharge, breast pain, abnormal mammogram, abnormal US or breast enlargement Musc Musculoskeletal: Yes arthritis; No back problems, rheumatoid arthritis, gout or joint pain Cardio Cardiovascular: Yes heart disease; No murmur, pacemaker, atrial fibrillation, high blood pressure, heart attack, heart stent, palpitations, shortness of breat with exertion or chest pain Psych Psychiatric: No depression, anxiety or hearing voices Resp Respiratory: No shortness of breath, No sleep apnea, No cough, No COPD, No asthma, No emphysema and No wheezing Gastro Gastrointestinal: No abdominal pain, No nausea or vomiting, No diarrhea, No constipation, No blood in stool, No acid reflux, No hemorrhoids, No ulcers, No gallbladder problem and No black,tarry stools [place] Hematologic: No blood thinners, No blood disorders, No bleeding, No anemia and No blood clots Neuro Neurologic: No system reviewed and no additional complaints, except as documented, No as per HPI, No abnormal gait, No abnormal hearing, No abnormal movements, No abnormal speech, No behavioral changes, No burning sensations, No confusion, No convulsions, No disequilibrium, No dizziness, No localized weak ness, No frequent falls, No headache(s), No lack of coordination, No loss of vision, No memory loss, No numbness, No other visual disturbances, No radicular pain, No restless legs, No sensory deficit, No syncope, No tingling, No tremor(s), No weakness and No other Exam Const General: cooperative, comfortable, no acute distress and frail appearing Nutritional Appearance: thin and underweight Other: Wheelchair bound [facility] Head: normal to inspection Eyes General: appearance normal, both eyes and all related structures Neck Neck: normal visual inspection Neck mass: No Resp Effort & Inspection: normal respiratory effort Auscultation: clear to auscultation bilaterally Cardio Rate: regular rate Rhythm: regular rhythm GI Inspection: normal to inspection Palpation: soft Auscultation: normal bowel sounds Musc Cervical Spine: normal cervical lordosis Skin General: no rashes or lesions noted Neuro General: no focal motor deficits and CN's II-XI intact bilaterally Extrem Other: Left upper extremity- dressing were removed. No bleeding identified. Dried blood mixed with small amount of bright red blood noted on dressing. Excellent pulse, diminished bruit and thrill. Psych Appearance: grossly normal Affect: normal affect COVID (Procedure Consent) Procedure Criteria Procedure Criteria: Yes Elective The surgeon/proceduralist and patient have discussed in detail the risk of exposure to and/or potential harm posed by the COVID-19 virus with having a surgery/procedure at this time versus the risk of delaying the surgery/procedure. It is not possible to know either the risk of delaying the surgery or procedure or chance of getting an infection with perfect accuracy, but a joint decision was made between the patient and the surgeon/proceduralist to proceed at this time with the scheduled surgery/procedure as indicated on the consent form. Assessment & Plan Assessment/Plan (1) Problem with dialysis access: QUALIFIERS: Encounter type: initial encounter Qualified Code(s): T82.898A - Other specified complication of vascular prosthetic devices, implants and grafts, initial encounter PLAN: Assessment and Plan (1) ESRD (end stage renal disease) on dialysis: Status: Chronic Plan - Luisa MASSEY PA-C: Dr. Nelson will plan to perform a left upper extremity fistulogram. Procedure details, risks and benefits have been explained. Patient will continue his daily aspirin for the procedure. Patient has had the opportunity to ask and have questions answered. Patient verbally understands and agrees with the plan. Our office will make arrangements with the half-way for the procedure. (2) Problem with dialysis access: Status: Acute
--- NOTE | 2021-11-01 09:31 | PCM.HP.BLA ---
History and Physical Date of Admission: 11/01/21 Date of Admission: 11/01/21 [facility] [address] [place] [address] OFFICE VISIT Date of Service: 10/26/21 MR#:[id number] Acct:[id number] Name: ABEL SOLIS Rep #:[id number] :1940 Provider: CHESTER Sibley Age/Sex: 80/M Location:[facility] Status:Signed Intake Vital Signs 10/26/21 14:14 Height 5 ft 8 in Weight: 112 lb BMI 17.0 BP 161/77 H Blood Pressure Location Rt brachial Position Sitting Respiration 18 Intake Visit Reasons: fistulagram Chief Complaint: check fistula Surgical Territory Manager Required: No Is patient in pain?: No Allergies varenicline tartrate [From Chantix] Allergy (Verified 10/26/21 14:02) makes me weird, hallucinations Medications atorvastatin 10 mg PO QHS 05/05/19 [History Confirmed 10/31/21] mycophenolate mofetil 500 mg PO BID 09/06/20 [History Confirmed 10/31/21] calcium acetate(phosphat bind) 667 mg capsule 2,001 mg PO TIDCM 11/03/20 [History Confirmed 10/31/21] ergocalciferol (vitamin D2) 1,250 mcg (50,000 unit) capsule 1,250 mcg PO QMONTH 11/03/20 [History Confirmed 10/31/21] Nephro-Lola 1 tab PO DAILY 07/01/21 [History Confirmed 10/31/21] carvedilol 3.125 mg PO BID #0 tab 07/27/21 [Rx Confirmed 10/31/21] insulin glargine [Lantus U-100 Insulin] 10 unit SUBCUT BID #10 ml 07/27/21 [Rx Confirmed 10/31/21] acetaminophen [Tylenol] 650 mg PO Q4H PRN PRN 10/10/21 [History Confirmed 10/31/21] calcium citrate 0.25 mg PO QODAY 10/10/21 [History Confirmed 10/31/21] calcium polycarbophil [Fiber-Caps (ca polycarbophil)] 1,250 mg PO DAILY 10/10/21 [History Confirmed 10/31/21] B-complex with vitamin C 1 tab PO DAILY 10/26/21 [History Confirmed 10/31/21] aspirin 81 mg tablet,delayed release 81 mg PO DAILY 10/26/21 [History Confirmed 10/31/21] fiber 1 cap PO DAILY 10/26/21 [History Confirmed 10/31/21] [facility] Medical History (Updated 11/01/21 @ 07:27 by Luisa MASSEY, PAVladC) MOODY (acute kidney injury) Anemia Asthma Atrial fibrillation Benign essential HTN Brain aneurysm Chronic renal failure, stage 5 Colon polyps COPD (chronic obstructive pulmonary disease) CVA (cerebral vascular accident) Diabetes Dialysis complication Dialysis patient Fall Febrile illness, acute Fistula Hepatitis C History of GI bleed Leukocytosis LFT elevation Metabolic encephalopathy Multifocal pneumonia NSTEMI, initial episode of care Problem with dialysis access PVD (peripheral vascular disease) Sleep apnea Tobacco use disorder Troponin level elevated Type II diabetes mellitus, uncontrolled Surgical History history insertion dialysis catheter (~11/04/20) History of cataract extraction History of colectomy History of colonoscopy (~06/2020) History of surgery on left wrist History of vein stripping Family History Mother CVA (cerebral vascular accident) Diabetes Hypertension Father Colon cancer Diabetes Brother Diabetes Social History Smoking Status: Current every day smoker tobacco type: cigarettes HPI: ABEL SOLIS, is a 80 M who presents to the office today for prolonged post-treatment bleeds. Patient has a left upper extremity brachial to cephalic arteriovenous fistula which was created on 11/30/20. He has not had any previous interventions on his fistula. He denies pain at the fistula site. He states he has to hold pressure the entire day after the treatment is completed. He notes even the following day he has difficult removing the dressing due to the access sites continuing to bleed. He currently resides in a half-way at [facility]. He dialyzes on M,T,W and F. He is maintained on a daily 81 mg aspirin. ROS General General: Yes weight change and fatigue; No appetite, colon cancer, breast cancer or weakness HEENT HEENT: No difficulty swallowing, eye injury, eye surgery, swollen glands or hoarseness Endo Endocrine: Yes diabetes mellitus; No thyroid disease, thyroid cancer, Hair loss, heat intolerance or cold intolerance Skin Skin: No rash or changing moles Breast Breast: No left breast lump, right breast lump, nipple discharge, breast pain, abnormal mammogram, abnormal US or breast enlargement Musc Musculoskeletal: Yes arthritis; No back problems, rheumatoid arthritis, gout or joint pain Cardio Cardiovascular: Yes heart disease; No murmur, pacemaker, atrial fibrillation, high blood pressure, heart attack, heart stent, palpitations, shortness of breat with exertion or chest pain Psych Psychiatric: No depression, anxiety or hearing voices Resp Respiratory: No shortness of breath, No sleep apnea, No cough, No COPD, No asthma, No emphysema and No wheezing Gastro Gastrointestinal: No abdominal pain, No nausea or vomiting, No diarrhea, No constipation, No blood in stool, No acid reflux, No hemorrhoids, No ulcers, No gallbladder problem and No black,tarry stools [place] Hematologic: No blood thinners, No blood disorders, No bleeding, No anemia and No blood clots Neuro Neurologic: No system reviewed and no additional complaints, except as documented, No as per HPI, No abnormal gait, No abnormal hearing, No abnormal movements, No abnormal speech, No behavioral changes, No burning sensations, No confusion, No convulsions, No disequilibrium, No dizziness, No localized weakness, No frequent falls, No headache(s), No lack of coordination, No loss of vision, No memory loss, No numbness, No other visual disturbances, No radicular pain, No restless legs, No sensory deficit, No syncope, No tingling, No tremor(s), No weakness and No other Exam Const General: cooperative, comfortable, no acute distress and frail appearing Nutritional Appearance: thin and underweight Other: Wheelchair bound [facility] Head: normal to inspection Eyes General: appearance normal, both eyes and all related structures Neck Neck: normal visual inspection Neck mass: No Resp Effort & Inspection: normal respiratory effort Auscultation: clear to auscultation bilaterally Cardio Rate: regular rate Rhythm: regular rhythm GI Inspection: normal to inspection Palpation: soft Auscultation: normal bowel sounds Musc Cervical Spine: normal cervical lordosis Skin General: no rashes or lesions noted Neuro General: no focal motor deficits and CN's II-XI intact bilaterally Extrem Other: Left upper extremity- dressing were removed. No bleeding identified. Dried blood mixed with small amount of bright red blood noted on dressing. Excellent pulse, diminished bruit and thrill. Psych Appearance: grossly normal Affect: normal affect COVID (Procedure Consent) Procedure Criteria Procedure Criteria: Yes Elective The surgeon/proceduralist and patient have discussed in detail the risk of exposure to and/or potential harm posed by the COVID-19 virus with having a surgery/procedure at this time versus the risk of delaying the surgery/procedure. It is not possible to know either the risk of delaying the surgery or procedure or chance of getting an infection with perfect accuracy, but a joint decision was made between the patient and the surgeon/proceduralist to proceed at this time with the scheduled surgery/procedure as indicated on the consent form. Assessment & Plan Assessment/Plan (1) Problem with dialysis access: QUALIFIERS: Encounter type: initial encounter Qualified Code(s): T82.898A - Other specified complication of vascular prosthetic devices, implants and grafts, initial encounter PLAN: Assessment and Plan (1) ESRD (end stage renal disease) on dialysis: Status: Chronic Plan - Luisa MASSEY PA-C: Dr. Nelson will plan to perform a left upper extremity fistulogram. Procedure details, risks and benefits have been explained. Patient will continue his daily aspirin for the procedure. Patient has had the opportunity to ask and have questions answered. Patient verbally understands and agrees with the plan. Our office will make arrangements with the half-way for the procedure. (2) Problem with dialysis access: Status: Acute 11/01/21 0731 <Electronically signed by Luisa MASSEY PA-C> Cosigner Signature (if applicable): CC: CHESTER Sibley; Dr. Jr Desouza MD~Signed Meir Nelson M.D., F.A.C.S.
--- NOTE | 2021-11-01 10:39 | OP.PCM_ITS ---
Problems Associated Problem List Diagnoses (1) Problem with dialysis access: Report of Operation Date of Procedure: 11/01/21 Pre-Operative Diagnosis: Problem with dialysis access increased bleeding left upper extremity brachial to cephalic arteriovenous hemodialysis fistula Post-Operative Diagnosis: High-grade proximal fistula venous stenosis Surgery/Procedure Performed:: Left upper extremity fistulogram with 8 x 2 conqu est angioplasty Description of Surgical Findings:: Timeout informed consent was obtained. The patient was taken the procedure room placed on the table left extremity sterilely prepped and draped very close to the arterial anastomosis 2% lidocaine was instilled as local anesthetic throughout the procedure total 10 cc was used to infiltrate around the fistula. Micropuncture needle inserted antegrade with flow micropuncture wire 6 Divehi short sheath dilator. Isovue was used standard fistulogram of the left upper arm and central venous system. There was a 2 cm long area of high-grade 90% stenosis of the proximal fistula with then 6 cm of the origin. A Glidewire was advanced 8 x 2 conquest balloon angioplasty performed 2 separate insufflations. Dramatic improvement was noted on completion view. No apparent complications. Sheath was removed the skin was noted to be very thin several U sutures of 4-0 nylon was placed. There was a vaporization and and squirting of blood causing contact exposure to myself. Hemostasis was subsequently controlled with pressure. At the completion the fistula had a strong pulse thrill and bruit Fistulogram demonstrates a left upper arm brachiocephalic arteriovenous hemodialysis fistula with high-grade proximal fistula stenosis. This resolved with 8 x 2 conquest angioplasty. There is good central venous outflow. Meir Nelson M.D., F.A.C.S. Surgeon: Meir Nelson Type of Anesthesia: Local
== END 2021-11-01 23:59 | disposition home or self-care (01) ==
LOC: CLSP 08:35
PROVIDERS: PCP Family Medicine; Referring Provider Surgery; Visit Provider Surgery
DX: T82.858A Stenosis of other vascular prosthetic devices, implants and grafts, initial encounter (principal); E11.51 Type 2 diabetes mellitus with diabetic peripheral angiopathy without gangrene; J44.9 Chronic obstructive pulmonary disease, unspecified; E11.59 Type 2 diabetes mellitus with other circulatory complications; E11.22 Type 2 diabetes mellitus with diabetic chronic kidney disease; I12.0 Hypertensive chronic kidney disease with stage 5 chronic kidney disease or end stage renal disease; N18.5 Chronic kidney disease, stage 5; I48.91 Unspecified atrial fibrillation; Z79.4 Long term (current) use of insulin; F17.210 Nicotine dependence, cigarettes, uncomplicated; I87.2 Venous insufficiency (chronic) (peripheral); Z86.73 Personal history of transient ischemic attack (TIA), and cerebral infarction without residual deficits; Z87.19 Personal history of other diseases of the digestive system; I25.2 Old myocardial infarction; G47.30 Sleep apnea, unspecified; Z87.01 Personal history of pneumonia (recurrent); Z79.82 Long term (current) use of aspirin; Z79.899 Other long term (current) drug therapy; Y84.9 Medical procedure, unspecified as the cause of abnormal reaction of the patient, or of later complication, without mention of misadventure at the time of the procedure
CPT/HCPCS: 36902; 86703; 86704; 86706; 86803; 87340; Q9967; C1725; C1769

== ENCOUNTER → 2021-11-01 11:12 | Outpatient (REF) | payer SELFPAY ==
[2021-11-01 12:22] LABS: HIV - WCH Non-Reactive (Nonreactive); Hepatitis B Surface Antibody Non-Reactive; Hepatitis B Surface Antigen Non-Reactive (Nonreactive); Hepatitis C Antibody Non-Reactive (Nonreactive)
[2021-11-02 14:18] LABS: Hepatitis B Core Ab Total Negative (Negative)
== END | disposition home or self-care (01) ==
LOC: ED 11:12
PROVIDERS: Surgery; PCP Family Medicine; Visit Provider Emergency Medicine
DX: Z00.00 Encounter for general adult medical examination without abnormal findings (principal)
CPT/HCPCS: 86703; 86704; 86706; 86803; 87340

== ENCOUNTER 2021-11-07 08:34 | Outpatient (CLI) | payer MEDICARE, MEDICAID, SELFPAY | END 2021-11-07 23:59 | disposition short-term general hospital (02) | LOC: LABSPEC 11-08 08:34 | PROVIDERS: PCP Family Medicine; Visit Provider Dermatology | DX: D48.5 Neoplasm of uncertain behavior of skin (principal) | CPT/HCPCS: 87070; 87077; 87186; 87205 ==

== ENCOUNTER 2021-11-24 04:00 | Outpatient (REF) | payer MEDICARE, MEDICAID, SELFPAY ==
[2021-11-24 06:49] LABS: Hematocrit 25.2 % (40-54); Hemoglobin 7.9 g/dL (13.0-16.5); Mean Corp Hgb Conc 31.3 g/dL (32-36); Mean Corpuscular Hgb 32.2 pg (27.0-32.0); Mean Corpuscular Volume 102.9 fL (80-94); Platelet Count 236 K/mm3 (150-450); RBC Distribution Width CV 14.2 % (11.6-14.6); RBC Distribution Width SD 52.7 fl (35.1-43.9); Red Blood Count 2.45 M/mm3 (4.6-6.2); White Blood Count 7.2 K/mm3 (4.4-11.0)
[2021-11-24 07:24] LABS: Anion Gap 8 (5-15); BUN 81 mg/dL (7-18); BUN/Creat Ratio 11.3 RATIO (10-20); Chloride 99 mmol/L (98-107); Creatinine, Serum 7.14 mg/dL (0.70-1.30); EST Glomerular Filtration Rate 8 mL/min (>60); Est Glom Filt Rate - Afr Amer 10 mL/min (>60); Glucose 56 mg/dL (74-106); Potassium 6.1 mmol/L (3.5-5.1); Sodium Level 134 mmol/L (136-145)
== END 2021-11-24 23:59 | disposition home or self-care (01) ==
LOC: OLS.SW500 04:00
PROVIDERS: PCP Family Medicine; Visit Provider Family Medicine
DX: N18.6 End stage renal disease (principal)
CPT/HCPCS: 36415; 80048; 85027

== ENCOUNTER → 2021-12-23 | Outpatient (REF) | payer MEDICARE, MEDICAID, SELFPAY ==
[2021-12-23 09:30] LABS: Hematocrit 32.5 % (40-54); Hemoglobin 10.3 g/dL (13.0-16.5); Mean Corp Hgb Conc 31.7 g/dL (32-36); Mean Corpuscular Hgb 34.3 pg (27.0-32.0); Mean Corpuscular Volume 108.3 fL (80-94); Platelet Count 259 K/mm3 (150-450); RBC Distribution Width CV 15.9 % (11.6-14.6); RBC Distribution Width SD 62.1 fl (35.1-43.9)
[2021-12-23 09:42] LABS: Anion Gap 7 (5-15); BUN 52 mg/dL (7-18); BUN/Creat Ratio 9.5 RATIO (10-20); Calcium,Total 9.7 mg/dL (8.5-10.1); Chloride 95 mmol/L (98-107); Creatinine, Serum 5.49 mg/dL (0.70-1.30); EST Glomerular Filtration Rate 11 mL/min (>60); Est Glom Filt Rate - Afr Amer 13 mL/min (>60); Glucose 108 mg/dL (74-106); Potassium 4.9 mmol/L (3.5-5.1); Sodium Level 134 mmol/L (136-145)
== END | disposition home or self-care (01) ==
LOC: OLS.SW500 08:13
PROVIDERS: PCP Family Medicine; Referring Provider Family Medicine; Visit Provider Family Medicine
DX: D64.9 Anemia, unspecified (principal); E11.9 Type 2 diabetes mellitus without complications
CPT/HCPCS: 36415; 80048; 85027

== ENCOUNTER → 2022-01-22 | Outpatient (REF) | payer MEDICARE, SELFPAY ==
[2022-01-22 10:01] LABS: Anion Gap 10 (5-15); BUN 64 mg/dL (7-18); BUN/Creat Ratio 8.8 RATIO (10-20); Calcium,Total 10.6 mg/dL (8.5-10.1); Chloride 92 mmol/L (98-107); Creatinine, Serum 7.27 mg/dL (0.70-1.30); EST Glomerular Filtration Rate 8 mL/min (>60); Est Glom Filt Rate - Afr Amer 9 mL/min (>60); Glucose 100 mg/dL (74-106); Sodium Level 132 mmol/L (136-145)
[2022-01-22 14:49] LABS: Hematocrit 33.6 % (40-54); Hemoglobin 10.7 g/dL (13.0-16.5); Mean Corp Hgb Conc 31.8 g/dL (32-36); Mean Corpuscular Hgb 33.2 pg (27.0-32.0); Mean Corpuscular Volume 104.3 fL (80-94); Mean Platelet Vol. 10.2 fl (6.2-12.0); Platelet Count 271 K/mm3 (150-450); RBC Distribution Width CV 14.1 % (11.6-14.6); RBC Distribution Width SD 54.9 fl (35.1-43.9); Red Blood Count 3.22 M/mm3 (4.6-6.2); White Blood Count 8.2 K/mm3 (4.4-11.0)
== END | disposition home or self-care (01) ==
LOC: OLS.SW300 04:00
PROVIDERS: PCP Family Medicine; Referring Provider Family Medicine; Visit Provider Family Medicine
DX: N18.6 End stage renal disease (principal)
CPT/HCPCS: 36415; 80048; 85027

== ENCOUNTER → 2022-01-29 | Outpatient (REF) | payer MEDICAID, SELFPAY ==
[2022-01-29 08:23] LABS: Cholesterol 81 mg/dL (200); High Density Lipoprotein 40 mg/dL; Triglycerides 58 mg/dL; Very Low Density Lipoprotein 12 mg/dL (5-40)
[2022-01-29 08:26] LABS: Hemoglobin A1c 5.5 % (3.8-5.6)
== END | disposition home or self-care (01) ==
LOC: OLS.SW500 05:00
PROVIDERS: PCP Family Medicine; Visit Provider Family Medicine
DX: E11.9 Type 2 diabetes mellitus without complications (principal)
CPT/HCPCS: 36415; 80061; 83036

== ENCOUNTER 2022-02-17 11:19 | Emergency (ER) | payer MEDICARE, MEDICAID, SELFPAY ==
[2022-02-17 11:20] VITALS: BP 190/75; PULSE 71; RESP 16; TEMP 36.8; O2SAT 99; BMI 20.6
--- NOTE | 2022-02-17 11:24 | CT_ITS ---
STUDY: CT BRAIN WITHOUT CONTRAST REASON FOR EXAM: Male, 81 years old. injury RADIATION DOSAGE (If Supplied By Facility): CTDIvol = ( 44.99 ) mGy, DLP = ( 863.60 ) mGycm TECHNIQUE: Transaxial CT imaging of the brain was performed without administration of intravenous contrast material. Individualized dose optimization techniques were used for this CT. COMPARISON: 10/02/2021 FINDINGS: Small right frontal scalp hematoma. Normal calvarium. There is moderate cerebral atrophy with widening of the extra-axial spaces and ventricular dilatation. There are areas of decreased attenuation within the white matter tracts of the supratentorial brain, consistent with microvascular disease changes. Normal basal ganglia and thalami. Normal brainstem. Normal cerebellum. There is no intracranial hemorrhage. There are no findings of an acute ischemic infarction. Normal visualized paranasal sinuses. CT/Brain/Head without Contrast IMPRESSION: Small right frontal scalp hematoma. No intracranial hemorrhage. Electronically Signed: Uvaldo Kim MD at 12:11 EDT ,
--- NOTE | 2022-02-17 11:26 | EX.ED.GENINJ ---
HPI History of Present Illness Chief Complaint: Fall Informant: patient and EMS Narrative Narrative: 81-year-old male fell off his wheelchair today injuring his right shoulder and head. EMS notes hematoma and laceration to the scalp. Noted abrasion to the left index finger. No loss of consciousness. He is a dialysis patient. Tetanus Immunization: <5 years [facility] Medical History MOODY (acute kidney injury) Anemia Asthma Atrial fibrillation Benign essential HTN Brain aneurysm Chronic renal failure, stage 5 Colon polyps COPD (chronic obstructive pulmonary disease) CVA (cerebral vascular accident) Diabetes Dialysis complication Dialysis patient Fall Febrile illness, acute Fistula Hepatitis C History of GI bleed Leukocytosis LFT elevation Metabolic encephalopathy Multifocal pneumonia NSTEMI, initial episode of care Problem with dialysis access PVD (peripheral vascular disease) Sleep apnea Tobacco use disorder Troponin level elevated Type II diabetes mellitus, uncontrolled Home Medications atorvastatin 10 mg PO QHS 05/05/19 [History Last Taken 06/29/21 21:00] mycophenolate mofetil 500 mg PO BID 09/06/20 [History Last Taken 06/29/21] ergocalciferol (vitamin D2) 1,250 mcg (50,000 unit) capsule 1,250 mcg PO QMONTH 11/03/20 [History Last Taken 06/14/21] Nephro-Lola 1 tab PO DAILY 07/01/21 [History Last Taken 06/29/21 17:00] carvedilol 3.125 mg PO BID #0 tab 07/27/21 [Rx Last Taken Unknown] acetaminophen [Tylenol] 650 mg PO Q4H PRN PRN 10/10/21 [History Last Taken Unknown] aspirin 81 mg tablet,delayed release 81 mg PO DAILY 10/26/21 [History Last Taken Unknown] fiber 1 cap PO DAILY 10/26/21 [History Last Taken Unknown] acetaminophen 650 mg WY Q4H PRN 02/17/22 [History Last Taken Unknown] aluminum-magnesium hydroxide [Antacid] 30 ml PO Q4H PRN PRN 02/17/22 [History Last Taken Unknown] ammonium lactate 1 applic TOPICAL TID 02/17/22 [History Last Taken Unknown] bisacodyl 10 mg WY DAILY PRN 02/17/22 [History Last Taken Unknown] calcium acetate(phosphat bind) [PhosLo] 1,334 mg PO TID 02/17/22 [History Last Taken Unknown] dextrose [Glucose Gel] 10 g PO Q15M PRN 02/17/22 [History Last Taken Unknown] glucagon [Glucagon Emergency Kit] 1 mg IM PRN PRN 02/17/22 [History Last Taken Unknown] guaifenesin 200 mg PO Q4H PRN 02/17/22 [History Last Taken Unknown] insulin glargine [Lantus U-100 Insulin] 10 unit SUBCUT DAILY 02/17/22 [History Last Taken Unknown] lidocaine 1 patch TOPICAL DAILY 02/17/22 [History Last Taken Unknown] loperamide 2 mg PO Q6H PRN 02/17/22 [History Last Taken Unknown] magnesium hydroxide [Milk of Magnesia] 30 ml PO DAILY PRN 02/17/22 [History Last Taken Unknown] sodium phosphates [Fleet Enema] 118 ml WY DAILY PRN 02/17/22 [History Last Taken Unknown] tramadol 50 mg PO BID PRN 02/17/22 [History Last Taken Unknown] triamcinolone acetonide 1 applic TOPICAL BID PRN 02/17/22 [History Last Taken Unknown] Allergy/AdvReac Type Severity Reaction Status Date / Time varenicline tartrate Allergy makes me Verified 02/17/22 11:23 [From Dulce] ana rosa, loyd Family History Mother CVA (cerebral vascular accident) Diabetes Hypertension Father Colon cancer Diabetes Brother Diabetes Surgical History history insertion dialysis catheter (~11/04/20) History of cataract extraction History of colectomy History of colonoscopy (~06/2020) History of surgery on left wrist History of vein stripping Social History (Updated 02/17/22 @ 11:[address] Ricco Liu DO) Smoking Status: Current every day smoker tobacco type: cigarettes substance use type: does not use ROS ROS ED Constitutional Constitutional ED: Denies chills, fever(s) or weight loss Eyes Eyes: Denies change in vision or diplopia ENT ENT ED: Denies ear pain, rhinorrhea or sore throat Cardiovascular Cardiovascular: Denies chest pain, orthopnea, palpitations or racing heartbeat Respiratory/Chest Respiratory/Chest: Denies cough, dyspnea or orthopnea Gastrointestinal Gastrointestinal: Denies abdominal pain, diarrhea, nausea or vomiting Genitourinary Genitourinary ED: Denies dysuria, hematuria or urinary frequency Musculoskeletal Musculoskeletal: Denies arthralgias or myalgias Integumentary Denies abscess or rash Neurologic Neurologic: Denies headache(s) or weakness Psychiatric Psychiatric: Denies anxiety, depression, suicidal ideation or suicidal thoughts Endocrine Endocrinology: Denies polydipsia, polyphagia or polyuria Allergic/Immunologic Allergic/Immunologic ED: Denies mouth swelling, tongue swelling or urticaria EXAM Physical Exam Const Vital Signs: 02/17/22 11:20 02/17/22 11:25 Temperature 98.3 F Temperature Source Oral Pulse Rate 71 Respiratory Rate 16 Respiratory Effort Normal Respiratory Depth Normal Respiratory Pattern Normal Blood Pressure 190/75 H Blood Pressure Mean 113 Pulse Ox 99 Oxygen Delivery Method Room Air Room Air Positive well nourished and well developed General Appearance ED: well developed HEENT Reports normocephalic, head/scalp atraumatic and moist mucous membranes HEENT Narrative: There is a right forehead hematoma and 1/2 cm laceration. There is associated abrasions. No bony depressions. Eyes PERRL and EOMs intact bilaterally Neck no lymphadenopathy, supple and no JVD Resp normal respiratory effort and clear to auscultation bilaterally Cardio regular rate, regular rhythm and no murmurs Rate: regular rate GI normal to inspection, nondistended, normoactive bowel sounds and non-tender Palpation: soft Back/Spine no CVA tenderness and normal ROM Extremity normal to inspection General Extremety ED: Negative for edema General Extremity: Negative for edema Neuro oriented x3 and CN's II-XII intact bilaterally Sensorium / Orientation: alert Motor Exam: strength 5/5 throughout Psych mental status grossly normal Mood & Affect: Negative for depressed or tearful Skin no rashes or lesions noted Skin Narrative: Superficial abrasion to the left index finger. MDM MDM MDM Narrative Medical decision making narrative: My interpretation of the plain films of the right shoulder is no acute fracture. CT of the brain was obtained which does not demonstrate intracranial hemorrhage or fracture. Wound was washed with Shur-Clens and explored. Small amount of Dermabond was used to close the laceration. Patient will Radiography Diagnostic Testing: Clinical Impression(s) from Imaging Studies Shoulder X-Ray 02/17/22 11:33 IMPRESSION: No acute fracture or dislocation in the right shoulder. Diffuse osteopenia. Advanced degenerative changes of the glenohumeral and moderate degenerative changes of the acromioclavicular joints. Clear visualized right lung. Electronically Signed: Deep Shah MD at 11:49 EDT Reading Location ID and State: [facility] / [place] Tel , Service support , Discharge Plan Triage Chief Complaint: Fall ED Provider: Ricco Liu Dx/Rx/DC Orders Clinical Impression: Head injury, Fall, Laceration of scalp, Abrasion of finger, Contusion of right shoulder Instructions: ED Head Injury (Adult), ED Laceration: Skin Adhesive Prescriptions: No Action ergocalciferol (vitamin D2) 1,250 mcg (50,000 unit) capsule 1,250 mcg PO QMONTH RF: 0 aspirin 81 mg tablet,delayed release (DR/EC) 81 mg PO DAILY RF: 0 fiber Capsule 2 cap PO QHS RF: 0 atorvastatin 10 MG tablet 10 mg PO QHS RF: 0 mycophenolate mofetil 500 MG tablet 500 mg PO BID RF: 0 Nephro-Lola 0.8 mg tablet 1 tab PO DAILY RF: 0 carvedilol 3.125 mg Tablet 3.125 mg PO BID Qty: 0 RF: 0 acetaminophen [Tylenol] 325 mg tablet 650 mg PO Q4H PRN PRN (Reason: Pain Score 1-10/Temp > 100.7 F) RF: 0 Glucagon Emergency Kit 1 mg Kit 1 mg IM PRN PRN (Reason: Hypoglycemia) RF: 0 acetaminophen 650 mg Suppository 650 mg WY Q4H PRN (Reason: pain/fever) RF: 0 lidocaine 4 % Adhesive Patch,Medicated 1 patch TOPICAL DAILY RF: 0 ammonium lactate 12 % Lotion 1 applic TOPICAL TID RF: 0 loperamide 2 mg Capsule 2 mg PO Q6H PRN (Reason: Diarrhea) RF: 0 dextrose [Glucose Gel] 40 % Gel 10 g PO Q15M PRN (Reason: Hypoglycemia) RF: 0 tramadol 50 mg Tablet 50 mg PO BID PRN (Reason: Pain) RF: 0 guaifenesin 100 mg/5 mL Liquid 200 mg PO Q4H PRN (Reason: Congestion) RF: 0 triamcinolone acetonide 0.1 % Cream 1 applic TOPICAL BID PRN (Reason: psoriasis) RF: 0 magnesium hydroxide [Milk of Magnesia] 400 mg/5 mL Suspension 30 ml PO DAILY PRN (Reason: Constipation) RF: 0 bisacodyl 10 mg Suppository 10 mg WY DAILY PRN (Reason: Constipation) RF: 0 Antacid 225-200 mg/5 mL Suspension 30 ml PO Q4H PRN PRN (Reason: Indigestion) RF: 0 Fleet Enema 19-7 gram/118 mL Enema 118 ml WY DAILY PRN (Reason: Constipation) RF: 0 calcium acetate(phosphat bind) [PhosLo] 667 mg Capsule 1,334 mg PO TID RF: 0 Lantus U-100 Insulin 100 unit/mL solution 10 unit subcut DAILY RF: 0 Primary Care Provider: Shaheen Baker Referrals: Shaheen Baker MD [Primary Care Provider] - As Needed Disposition Disposition: Home, Self Care
--- NOTE | 2022-02-17 11:33 | RAD_ITS ---
STUDY: X-RAY - RIGHT SHOULDER REASON FOR EXAM: Male, 81 years old. Pain after trauma TECHNIQUE: 3 view(s) of the shoulder. COMPARISON: None. FINDINGS: Please see the impression. RAD/Shoulder min 2 Views IMPRESSION: No acute fracture or dislocation in the right shoulder. Diffuse osteopenia. Advanced degenerative changes of the glenohumeral and moderate degenerative changes of the acromioclavicular joints. Clear visualized right lung. Electronically Signed: Deep Shah MD at 11:49 EDT ,
[2022-02-17 13:00] VITALS: BP 168/72; PULSE 66; RESP 14; O2SAT 98
[2022-02-17 15:00] VITALS: BP 165/78; PULSE 88; RESP 16; O2SAT 98
[2022-02-17 17:00] VITALS: BP 164/54; PULSE 66; RESP 16; O2SAT 98
--- NOTE | 2022-02-17 17:59 | ED.RN ---
Daughter updated still waiting on ride.
[2022-02-17 19:00] VITALS: BP 156/72; PULSE 78; RESP 14; O2SAT 98
[2022-02-17 19:30] VITALS: BP 160/78; PULSE 67; RESP 14; TEMP 36.9; O2SAT 98
== END 2022-02-17 19:31 | disposition home or self-care (01) ==
LOC: ED 12:05
PROVIDERS: Emergency Provider Emergency Medicine; PCP Family Medicine; Visit Provider Emergency Medicine
DX: S01.01XA Laceration without foreign body of scalp, initial encounter (principal); E11.51 Type 2 diabetes mellitus with diabetic peripheral angiopathy without gangrene; Z99.2 Dependence on renal dialysis; J44.9 Chronic obstructive pulmonary disease, unspecified; E11.22 Type 2 diabetes mellitus with diabetic chronic kidney disease; I12.0 Hypertensive chronic kidney disease with stage 5 chronic kidney disease or end stage renal disease; N18.5 Chronic kidney disease, stage 5; I48.91 Unspecified atrial fibrillation; Z79.4 Long term (current) use of insulin; S40.011A Contusion of right shoulder, initial encounter; F17.210 Nicotine dependence, cigarettes, uncomplicated; S60.411A Abrasion of left index finger, initial encounter; W05.0XXA Fall from non-moving wheelchair, initial encounter; Z86.73 Personal history of transient ischemic attack (TIA), and cerebral infarction without residual deficits; Z87.19 Personal history of other diseases of the digestive system; I25.2 Old myocardial infarction; G47.30 Sleep apnea, unspecified; Z79.82 Long term (current) use of aspirin; Z79.899 Other long term (current) drug therapy; S00.83XA Contusion of other part of head, initial encounter; S01.81XA Laceration without foreign body of other part of head, initial encounter
CPT/HCPCS: 12001; 70450; 73030; 99284

== ENCOUNTER → 2022-02-20 | Outpatient (REF) | payer MEDICARE, MEDICAID, SELFPAY ==
[2022-02-20 06:59] LABS: Hematocrit 27.3 % (40-54); Hemoglobin 8.8 g/dL (13.0-16.5); Mean Corp Hgb Conc 32.2 g/dL (32-36); Mean Corpuscular Hgb 32.8 pg (27.0-32.0); Mean Corpuscular Volume 101.9 fL (80-94); Mean Platelet Vol. 10.3 fl (6.2-12.0); Platelet Count 196 K/mm3 (150-450); RBC Distribution Width CV 13.7 % (11.6-14.6); RBC Distribution Width SD 50.6 fl (35.1-43.9); Red Blood Count 2.68 M/mm3 (4.6-6.2); White Blood Count 5.6 K/mm3 (4.4-11.0)
[2022-02-20 07:13] LABS: Anion Gap 9 (5-15); BUN 63 mg/dL (7-18); BUN/Creat Ratio 12.1 RATIO (10-20); Chloride 93 mmol/L (98-107); Creatinine, Serum 5.19 mg/dL (0.70-1.30); EST Glomerular Filtration Rate 11 mL/min (>60); Est Glom Filt Rate - Afr Amer 14 mL/min (>60); Glucose 105 mg/dL (74-106); Potassium 4.6 mmol/L (3.5-5.1); Sodium Level 133 mmol/L (136-145)
== END | disposition home or self-care (01) ==
LOC: OLS.SW500 05:00
PROVIDERS: PCP Family Medicine; Visit Provider Family Medicine
DX: I10 Essential (primary) hypertension (principal); J44.9 Chronic obstructive pulmonary disease, unspecified; E11.9 Type 2 diabetes mellitus without complications; E78.5 Hyperlipidemia, unspecified; D64.9 Anemia, unspecified
CPT/HCPCS: 36415; 80048; 85027

== ENCOUNTER → 2022-03-21 05:00 | Outpatient (REF) | payer MEDICARE, MEDICAID, SELFPAY ==
[2022-03-21 09:56] LABS: Hemoglobin 7.5 g/dL (13.0-16.5); Mean Corp Hgb Conc 31.3 g/dL (32-36); Mean Corpuscular Hgb 32.8 pg (27.0-32.0); Mean Corpuscular Volume 104.8 fL (80-94); Mean Platelet Vol. 10.6 fl (6.2-12.0); Platelet Count 231 K/mm3 (150-450); RBC Distribution Width CV 14.7 % (11.6-14.6); RBC Distribution Width SD 55.9 fl (35.1-43.9); Red Blood Count 2.29 M/mm3 (4.6-6.2); White Blood Count 5.2 K/mm3 (4.4-11.0)
[2022-03-21 10:27] LABS: Anion Gap 6 (5-15); BUN 64 mg/dL (7-18); BUN/Creat Ratio 12.7 RATIO (10-20); Calcium,Total 9.6 mg/dL (8.5-10.1); Chloride 94 mmol/L (98-107); Creatinine, Serum 5.02 mg/dL (0.70-1.30); EST Glomerular Filtration Rate 12 mL/min (>60); Est Glom Filt Rate - Afr Amer 14 mL/min (>60); Glucose 59 mg/dL (74-106); Potassium 4.1 mmol/L (3.5-5.1); Sodium Level 134 mmol/L (136-145)
== END ==
LOC: OLS.SW500 05:00
PROVIDERS: PCP Family Medicine; Visit Provider Family Medicine
DX: D64.9 Anemia, unspecified (principal); E11.22 Type 2 diabetes mellitus with diabetic chronic kidney disease; N18.6 End stage renal disease
CPT/HCPCS: 36415; 80048; 85027

== ENCOUNTER → 2022-03-23 12:40 | Outpatient (REF) | payer MEDICARE, MEDICAID, SELFPAY ==
[2022-03-23 12:56] LABS: Hemoglobin 8.6 g/dL (13.0-16.5)
== END ==
LOC: OLS.SW500 12:40
PROVIDERS: PCP Family Medicine; Visit Provider Family Medicine
DX: E11.9 Type 2 diabetes mellitus without complications (principal)
CPT/HCPCS: 36415; 85018

== ENCOUNTER → 2022-04-19 05:00 | Outpatient (REF) | payer MEDICARE, MEDICAID, SELFPAY ==
[2022-04-19 08:31] LABS: Hematocrit 29.3 % (40-54); Hemoglobin 9.2 g/dL (13.0-16.5); Mean Corp Hgb Conc 31.4 g/dL (32-36); Mean Corpuscular Hgb 33.3 pg (27.0-32.0); Mean Corpuscular Volume 106.2 fL (80-94); Mean Platelet Vol. 10.1 fl (6.2-12.0); Platelet Count 246 K/mm3 (150-450); RBC Distribution Width CV 15.3 % (11.6-14.6); RBC Distribution Width SD 58.9 fl (35.1-43.9); Red Blood Count 2.76 M/mm3 (4.6-6.2); White Blood Count 6.3 K/mm3 (4.4-11.0)
[2022-04-19 08:59] LABS: Anion Gap 10 (5-15); BUN 71 mg/dL (7-18); BUN/Creat Ratio 11.3 RATIO (10-20); Calcium,Total 9.4 mg/dL (8.5-10.1); Chloride 89 mmol/L (98-107); Creatinine, Serum 6.31 mg/dL (0.70-1.30); EST Glomerular Filtration Rate 9 mL/min (>60); Est Glom Filt Rate - Afr Amer 11 mL/min (>60); Glucose 63 mg/dL (74-106); Potassium 4.6 mmol/L (3.5-5.1); Sodium Level 130 mmol/L (136-145)
== END ==
LOC: OLS.SW500 05:00
PROVIDERS: PCP Family Medicine; Visit Provider Family Medicine
DX: D64.9 Anemia, unspecified (principal); E11.9 Type 2 diabetes mellitus without complications
CPT/HCPCS: 36415; 80048; 85027

== ENCOUNTER → 2022-04-30 | Outpatient (REF) | payer MEDICARE, MEDICAID, SELFPAY ==
[2022-04-30 08:36] LABS: Hemoglobin A1c 5.1 % (3.8-5.6)
[2022-04-30 08:39] LABS: Cholesterol 72 mg/dL (200); High Density Lipoprotein 40 mg/dL; Triglycerides 55 mg/dL; Very Low Density Lipoprotein 11 mg/dL (5-40)
== END ==
LOC: OLS.SW500 05:00
PROVIDERS: PCP Family Medicine; Visit Provider Family Medicine
DX: E11.9 Type 2 diabetes mellitus without complications (principal)
CPT/HCPCS: 36415; 80061; 83036

== ENCOUNTER → 2022-05-18 | Outpatient (REF) | payer MEDICARE, MEDICAID, SELFPAY ==
[2022-05-18 08:00] LABS: Hematocrit 30.4 % (40-54); Hemoglobin 9.6 g/dL (13.0-16.5); Mean Corp Hgb Conc 31.6 g/dL (32-36); Mean Corpuscular Hgb 34.7 pg (27.0-32.0); Mean Corpuscular Volume 109.7 fL (80-94); Mean Platelet Vol. 10.5 fl (6.2-12.0); Platelet Count 211 K/mm3 (150-450); RBC Distribution Width CV 15.3 % (11.6-14.6); RBC Distribution Width SD 62.1 fl (35.1-43.9); Red Blood Count 2.77 M/mm3 (4.6-6.2); White Blood Count 5.6 K/mm3 (4.4-11.0)
[2022-05-18 08:12] LABS: Anion Gap 6 (5-15); BUN 51 mg/dL (7-18); BUN/Creat Ratio 9.1 RATIO (10-20); Calcium,Total 9.4 mg/dL (8.5-10.1); Chloride 98 mmol/L (98-107); Creatinine, Serum 5.58 mg/dL (0.70-1.30); EST Glomerular Filtration Rate 11 mL/min (>60); Est Glom Filt Rate - Afr Amer 13 mL/min (>60); Glucose 82 mg/dL (74-106); Potassium 4.6 mmol/L (3.5-5.1); Sodium Level 136 mmol/L (136-145)
== END ==
LOC: OLS.SW500 04:00
PROVIDERS: PCP Family Medicine; Referring Provider Family Medicine; Visit Provider Family Medicine
DX: E11.22 Type 2 diabetes mellitus with diabetic chronic kidney disease (principal); N18.6 End stage renal disease
CPT/HCPCS: 36415; 80048; 85027

== ENCOUNTER → 2022-06-19 | Outpatient (REF) | payer MEDICARE, MEDICAID, SELFPAY ==
[2022-06-19 09:35] LABS: Mean Corp Hgb Conc 32.1 g/dL (32-36); Mean Corpuscular Volume 105.7 fL (80-94); Mean Platelet Vol. 11.2 fl (6.2-12.0); Platelet Count 180 K/mm3 (150-450); RBC Distribution Width CV 13.3 % (11.6-14.6); RBC Distribution Width SD 51.4 fl (35.1-43.9); Red Blood Count 2.65 M/mm3 (4.6-6.2); White Blood Count 5.2 K/mm3 (4.4-11.0)
[2022-06-19 09:43] LABS: Anion Gap 7 (5-15); BUN 53 mg/dL (7-18); BUN/Creat Ratio 9.8 RATIO (10-20); Calcium,Total 10.1 mg/dL (8.5-10.1); Chloride 96 mmol/L (98-107); Creatinine, Serum 5.41 mg/dL (0.70-1.30); EST Glomerular Filtration Rate 11 mL/min (>60); Est Glom Filt Rate - Afr Amer 13 mL/min (>60); Glucose 64 mg/dL (74-106); Sodium Level 136 mmol/L (136-145)
== END ==
LOC: OLS.SW500 08:20
PROVIDERS: PCP Family Medicine; Visit Provider Family Medicine
DX: D64.9 Anemia, unspecified (principal); E11.22 Type 2 diabetes mellitus with diabetic chronic kidney disease; N18.6 End stage renal disease
CPT/HCPCS: 36415; 80048; 85027

== ENCOUNTER → 2022-07-17 | Outpatient (REF) | payer MEDICARE, MEDICAID, SELFPAY ==
[2022-07-17 07:50] LABS: Hematocrit 27.4 % (40-54); Hemoglobin 8.7 g/dL (13.0-16.5); Mean Corp Hgb Conc 31.8 g/dL (32-36); Mean Corpuscular Hgb 34.5 pg (27.0-32.0); Mean Corpuscular Volume 108.7 fL (80-94); Mean Platelet Vol. 10.1 fl (6.2-12.0); Platelet Count 309 K/mm3 (150-450); RBC Distribution Width CV 13.8 % (11.6-14.6); RBC Distribution Width SD 54.4 fl (35.1-43.9); Red Blood Count 2.52 M/mm3 (4.6-6.2); White Blood Count 7.2 K/mm3 (4.4-11.0)
[2022-07-17 08:00] LABS: Anion Gap 8 (5-15); BUN 33 mg/dL (7-18); BUN/Creat Ratio 8.7 RATIO (10-20); Calcium,Total 10.3 mg/dL (8.5-10.1); Chloride 94 mmol/L (98-107); Creatinine, Serum 3.81 mg/dL (0.70-1.30); EST Glomerular Filtration Rate 16 mL/min (>60); Est Glom Filt Rate - Afr Amer 20 mL/min (>60); Glucose 116 mg/dL (74-106); Potassium 3.8 mmol/L (3.5-5.1); Sodium Level 133 mmol/L (136-145)
== END ==
LOC: OLS.SW500 04:00
PROVIDERS: PCP Family Medicine; Visit Provider Family Medicine
DX: D64.9 Anemia, unspecified (principal); E11.9 Type 2 diabetes mellitus without complications
CPT/HCPCS: 36415; 80048; 85027

== ENCOUNTER → 2022-07-30 | Outpatient (REF) | payer MEDICARE, MEDICAID, SELFPAY ==
[2022-07-30 08:26] LABS: Cholesterol 54 mg/dL (200); High Density Lipoprotein 25 mg/dL; Triglycerides 98 mg/dL; Very Low Density Lipoprotein 20 mg/dL (5-40)
[2022-07-30 09:08] LABS: Hemoglobin A1c 5.9 % (3.8-5.6)
== END ==
LOC: OLS.SW500 05:00
PROVIDERS: PCP Family Medicine; Visit Provider Family Medicine
DX: E11.9 Type 2 diabetes mellitus without complications (principal); E78.5 Hyperlipidemia, unspecified
CPT/HCPCS: 36415; 80061; 83036

== ENCOUNTER → 2022-08-15 | Outpatient (REF) | payer MEDICARE, MEDICAID, SELFPAY ==
[2022-08-15 08:58] LABS: Hematocrit 23.9 % (40-54); Hemoglobin 7.5 g/dL (13.0-16.5); Mean Corp Hgb Conc 31.4 g/dL (32-36); Mean Corpuscular Hgb 34.9 pg (27.0-32.0); Mean Corpuscular Volume 111.2 fL (80-94); Mean Platelet Vol. 10.6 fl (6.2-12.0); Platelet Count 171 K/mm3 (150-450); RBC Distribution Width CV 15.8 % (11.6-14.6); RBC Distribution Width SD 63.7 fl (35.1-43.9); Red Blood Count 2.15 M/mm3 (4.6-6.2); White Blood Count 5.1 K/mm3 (4.4-11.0)
[2022-08-15 09:10] LABS: Anion Gap 7 (5-15); BUN 52 mg/dL (7-18); BUN/Creat Ratio 9.8 RATIO (10-20); Calcium,Total 9.2 mg/dL (8.5-10.1); Chloride 95 mmol/L (98-107); Creatinine, Serum 5.31 mg/dL (0.70-1.30); EST Glomerular Filtration Rate 11 mL/min (>60); Est Glom Filt Rate - Afr Amer 14 mL/min (>60); Glucose 79 mg/dL (74-106); Potassium 4.3 mmol/L (3.5-5.1); Sodium Level 135 mmol/L (136-145)
== END ==
LOC: OLS.SW 05:00
PROVIDERS: PCP Family Medicine; Visit Provider Family Medicine
DX: N18.6 End stage renal disease (principal); E11.22 Type 2 diabetes mellitus with diabetic chronic kidney disease; D64.9 Anemia, unspecified
CPT/HCPCS: 36415; 80048; 85027

== ENCOUNTER → 2022-09-13 | Outpatient (REF) | payer MEDICARE, MEDICAID, SELFPAY ==
[2022-09-13 10:01] LABS: Hematocrit 21.4 % (40-54); Hemoglobin 6.6 g/dL (13.0-16.5); Mean Corp Hgb Conc 30.8 g/dL (32-36); Mean Corpuscular Hgb 35.1 pg (27.0-32.0); Mean Corpuscular Volume 113.8 fL (80-94); Mean Platelet Vol. 10.6 fl (6.2-12.0); Platelet Count 215 K/mm3 (150-450); RBC Distribution Width CV 15.4 % (11.6-14.6); RBC Distribution Width SD 63.8 fl (35.1-43.9); Red Blood Count 1.88 M/mm3 (4.6-6.2); White Blood Count 5.9 K/mm3 (4.4-11.0)
[2022-09-13 10:09] LABS: Anion Gap 8 (5-15); BUN 34 mg/dL (7-18); BUN/Creat Ratio 9.8 RATIO (10-20); Calcium,Total 8.9 mg/dL (8.5-10.1); Chloride 95 mmol/L (98-107); Creatinine, Serum 3.47 mg/dL (0.70-1.30); EST Glomerular Filtration Rate 18 mL/min (>60); Est Glom Filt Rate - Afr Amer 22 mL/min (>60); Glucose 105 mg/dL (74-106); Potassium 3.7 mmol/L (3.5-5.1); Sodium Level 137 mmol/L (136-145)
== END ==
LOC: OLS.SW 05:00
PROVIDERS: PCP Family Medicine; Visit Provider Family Medicine
DX: E11.22 Type 2 diabetes mellitus with diabetic chronic kidney disease (principal); N18.6 End stage renal disease; D64.9 Anemia, unspecified
CPT/HCPCS: 36415; 80048; 85027

== ENCOUNTER → 2022-10-12 | Outpatient (REF) | payer MEDICARE, MEDICAID, SELFPAY ==
[2022-10-12 07:48] LABS: Hematocrit 28.9 % (40-54); Hemoglobin 8.9 g/dL (13.0-16.5); Mean Corp Hgb Conc 30.8 g/dL (32-36); Mean Corpuscular Hgb 34.6 pg (27.0-32.0); Mean Corpuscular Volume 112.5 fL (80-94); Mean Platelet Vol. 10.7 fl (6.2-12.0); Platelet Count 172 K/mm3 (150-450); RBC Distribution Width CV 14.7 % (11.6-14.6); RBC Distribution Width SD 62.1 fl (35.1-43.9); Red Blood Count 2.57 M/mm3 (4.6-6.2); White Blood Count 4.4 K/mm3 (4.4-11.0)
[2022-10-12 08:05] LABS: Anion Gap 8 (5-15); BUN 42 mg/dL (7-18); BUN/Creat Ratio 8.2 RATIO (10-20); Calcium,Total 8.6 mg/dL (8.5-10.1); Chloride 96 mmol/L (98-107); Creatinine, Serum 5.13 mg/dL (0.70-1.30); EST Glomerular Filtration Rate 12 mL/min (>60); Est Glom Filt Rate - Afr Amer 14 mL/min (>60); Glucose 73 mg/dL (74-106); Sodium Level 134 mmol/L (136-145)
[2022-10-12 10:43] LABS: Erythrocyte Sedimentation Rate 42 mm/hr (0-20)
== END ==
LOC: OLS.SW 04:00
PROVIDERS: PCP Family Medicine; Referring Provider Family Medicine; Visit Provider Family Medicine
DX: E11.9 Type 2 diabetes mellitus without complications (principal)
CPT/HCPCS: 36415; 80048; 85027; 85652

== ENCOUNTER → 2022-12-10 | Outpatient (REF) | payer MEDICARE, MEDICAID, SELFPAY ==
[2022-12-10 07:25] LABS: Hematocrit 31.6 % (40-54); Hemoglobin 10.2 g/dL (13.0-16.5); Mean Corp Hgb Conc 32.3 g/dL (32-36); Mean Corpuscular Hgb 34.2 pg (27.0-32.0); Mean Platelet Vol. 10.9 fl (6.2-12.0); Platelet Count 181 K/mm3 (150-450); RBC Distribution Width CV 13.7 % (11.6-14.6); Red Blood Count 2.98 M/mm3 (4.6-6.2); White Blood Count 6.9 K/mm3 (4.4-11.0)
[2022-12-10 07:55] LABS: Anion Gap 9 (5-15); BUN 81 mg/dL (7-18); BUN/Creat Ratio 11.3 RATIO (10-20); Calcium,Total 9.5 mg/dL (8.5-10.1); Chloride 97 mmol/L (98-107); Creatinine, Serum 7.17 mg/dL (0.70-1.30); EST Glomerular Filtration Rate 8 mL/min (>60); Est Glom Filt Rate - Afr Amer 10 mL/min (>60); Glucose 96 mg/dL (74-106); Potassium 5.1 mmol/L (3.5-5.1); Sodium Level 135 mmol/L (136-145)
== END ==
LOC: OLS.SW 05:00
PROVIDERS: PCP Family Medicine; Referring Provider Family Medicine; Visit Provider Family Medicine
DX: D64.9 Anemia, unspecified (principal); E11.22 Type 2 diabetes mellitus with diabetic chronic kidney disease; N18.6 End stage renal disease
CPT/HCPCS: 36415; 80048; 85027

== ENCOUNTER 2022-12-25 08:52 | Day surgery (SDC) | payer MEDICARE, MEDICAID, SELFPAY ==
[2022-12-24 13:35] VITALS: BMI 19.0
--- NOTE | 2022-12-25 09:37 | HP.PCM_ITS ---
History and Physical Date of Admission: 12/25/22 Visit Reasons:?Dialysis Access Intervention Chief Complaint: check fistula Is patient in pain?: No Allergies varenicline tartrate [From Chantix] Allergy (Verified 12/17/22 12:58) makes me weird, hallucinations Medications atorvastatin 10 mg tablet 10 mg PO QHS cholesterol 05/05/19 [History Confirmed 12/17/22] mycophenolate mofetil 500 mg tablet 500 mg PO BID rejection 09/06/20 [History Confirmed 12/17/22] ergocalciferol (vitamin D2) 1,250 mcg (50,000 unit) capsule 1,250 mcg PO QMONTH health maintenance 11/03/20 [History Confirmed 12/17/22] vitamin B complex-vitamin C-folic acid 0.8 mg tablet (Nephro-Lola) 1 tab PO D AILY health maintenance 07/01/21 [History Confirmed 12/17/22] carvedilol 3.125 mg tablet 3.125 mg PO BID #0 tabs 07/27/21 [Rx Confirmed 12/17/22] acetaminophen 325 mg tablet (Tylenol) 650 mg PO Q4H PRN PRN Pain Score 1-10/Temp > 100.7 F 10/10/21 [History Confirmed 12/17/22] aspirin 81 mg tablet,delayed release 81 mg PO DAILY 10/26/21 [History Confirmed 12/17/22] fiber 2 cap PO QHS 10/26/21 [History Confirmed 12/17/22] acetaminophen 650 mg rectal suppository 650 mg ID Q4H PRN pain/fever 02/17/22 [History Confirmed 12/17/22] aluminum-magnesium hydroxide 225 mg-200 mg/5 mL oral suspension 30 ml PO Q4H PRN PRN Indigestion 02/17/22 [History Confirmed 12/17/22] ammonium lactate 12 % lotion 1 applic topical TID 02/17/22 [History Confirmed 12/17/22] bisacodyl 10 mg rectal suppository 10 mg ID DAILY PRN Constipation 02/17/22 [History Confirmed 12/17/22] calcium acetate(phosphat bind) 667 mg capsule 1,334 mg PO TID 02/17/22 [History Confirmed 12/17/22] dextrose 40 % oral gel (Glucose Gel) 10 g PO Q15M PRN Hypoglycemia 02/17/22 [History Confirmed 12/17/22] glucagon 1 mg injection kit 1 mg IM PRN PRN Hypoglycemia 02/17/22 [History Confirmed 12/17/22] guaifenesin 100 mg/5 mL oral liquid 200 mg PO Q4H PRN Congestion 02/17/22 [History Confirmed 12/17/22] insulin glargine 100 unit/mL subcutaneous solution (Lantus U-100 Insulin) 10 unit subcut DAILY 02/17/22 [History Confirmed 12/17/22] lidocaine 4 % topical patch 1 patch topical DAILY 02/17/22 [History Confirmed 12/17/22] loperamide 2 mg capsule 2 mg PO Q6H PRN Diarrhea 02/17/22 [History Confirmed 12/17/22] magnesium hydroxide 400 mg/5 mL oral suspension (Milk of Magnesia) 30 ml PO DAILY PRN Constipation 02/17/22 [History Confirmed 12/17/22] sodium phosphates 19 gram-7 gram/118 mL enema (Fleet Enema) 118 ml ID DAILY PRN Constipation 02/17/22 [History Confirmed 12/17/22] tramadol 50 mg tablet 50 mg PO BID PRN Pain 02/17/22 [History Confirmed 12/17/22] triamcinolone acetonide 0.1 % topical cream 1 applic topical BID PRN psoriasis 02/17/22 [History Confirmed 12/17/22] PFSH Medical History? MOODY (acute kidney injury) Anemia Asthma Atrial fibrillation Benign essential HTN Brain aneurysm Chronic renal failure, stage 5 Colon polyps COPD (chronic obstructive pulmonary disease) CVA (cerebral vascular accident) Diabetes Dialysis complication Dialysis patient Fall Febrile illness, acute Fistula Hepatitis C History of GI bleed Leukocytosis LFT elevation Metabolic encephalopathy Multifocal pneumonia NSTEMI, initial episode of care Problem with dialysis access PVD (peripheral vascular disease) Sleep apnea Tobacco use disorder Troponin level elevated Type II diabetes mellitus, uncontrolled Surgical History?(Updated 05/04/22 @ 13:08 by Gris Nicolas) history insertion dialysis catheter (~11/04/20) History of cataract extraction History of colectomy History of colonoscopy (~06/2020) History of surgery on left wrist History of vein stripping Family History? Mother CVA (cerebral vascular accident) Diabetes HypertensionFather Colon cancer DiabetesBrother Diabetes Social History?(Updated 02/17/22 @ 11:[address] Ricco Liu DO) Smoking Status:? Current every day smoker tobacco type: cigarettes substance use type:? does not use HPI HPI Surgical H&P: Yes HPI: Patient is an 82 y/o M I am following for prolonged post-treatment bleeding and difficulty with cannulation. Patient notes for several weeks the dialysis center have been having difficulty with with prolonged bleeding and alarms during cannulation. Patient noted he has had to be taken off dialysis early due to the machine alarming. Patient is currently on a low dose aspirin. 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 Patient resides at [facility] and performs dialysis at the long-term.? Patient's last fistulogram was completed on 11/01/2021. 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 An 8 x 2 conquest angioplasty was used to successfully treat this area. ROS General General: Yes weight change and fatigue; No appetite, colon cancer, breast cancer or weakness HEENT HEENT: No difficulty swallowing, eye injury, eye surgery, swollen glands or hoarseness Endo Endocrine: Yes diabetes mellitus; No thyroid disease, thyroid cancer, Hair loss, heat intolerance or cold intolerance Skin Skin: No rash or changing moles Breast Breast: No left breast lump, right breast lump, nipple discharge, breast pain, abnormal mammogram, abnormal US or breast enlargement Musc Musculoskeletal: Yes arthritis; No back problems, rheumatoid arthritis, gout or joint pain Cardio Cardiovascular: Yes heart disease; No murmur, pacemaker, atrial fibrillation, high blood pressure, heart attack, heart stent, palpitations, shortness of breat with exertion or chest pain Psych Psychiatric: No depression, anxiety or hearing voices Resp Respiratory: No shortness of breath, No sleep apnea, No cough, No COPD, No asthma, No emphysema and No wheezing Gastro Gastrointestinal: No abdominal pain, No nausea or vomiting, No diarrhea, No constipation, No blood in stool, No acid reflux, No hemorrhoids, No ulcers, No gallbladder problem and No black,tarry stools [place] Hematologic: No blood thinners, No blood disorders, No bleeding, No anemia and No blood clots Neuro Neurologic: No system reviewed and no additional complaints, except as documented, No as per HPI, No abnormal gait, No abnormal hearing, No abnormal movements, No abnormal speech, No behavioral changes, No burning sensations, No confusion, No convulsions, No disequilibrium, No dizziness, No localized weakness, No frequent falls, No headache(s), No lack of coordination, No loss of vision, No memory loss, No numbness, No other visual disturbances, No radicular pain, No restless legs, No sensory deficit, No syncope, No tingling, No tremor(s), No weakness and No other Exam Const General: cooperative, healthy appearing and comfortable Other: Patient presents in a wheelchair from a long-term [facility] Head: normal to inspection Eyes General: appearance normal, both eyes and all related structures Neck Neck: normal visual inspection Neck mass: No Resp Effort & Inspection: normal respiratory effort Auscultation: clear to auscultation bilaterally Cardio Rate: regular rate Rhythm: regular rhythm GI Inspection: normal to inspection Palpation: soft Musc Cervical Spine: normal cervical lordosis Skin Other: Micro-abrasions noted on bilateral upper extremities Neuro General: no focal motor deficits and CN's II-XI intact bilaterally Extrem Other: Left upper extremity- good pulse, diminished bruit and thrill. Fistula is pulsatile. Psych Appearance: grossly normal Affect: normal affect Assessment and Plan Assessment and Plan (1) Problem with dialysis access: ?Status:?Acute ?Qualifiers: ?Encounter type:?initial encounter? Qualified Code(s):?T82.898A - Other s pecified complication of vascular prosthetic devices, implants and grafts, initial encounter ?Plan: Dr. Nelson will plan to perform a non-urgent left upper extremity fistulogram. Procedure details, risks and benefits have been explained. Patient may continue his daily aspirin. Patient resides at [facility]. Instructions were sent with the patient and faxed to the long-term as well. Patient has had the opportunity to ask and have questions answered. Patient verbally understands and agrees with the plan. I have examined the patient and the H&P has been reviewed. There are no clinical changes since date of exam. Meir Nelson M.D., F.A.C.S.
--- NOTE | 2022-12-25 10:30 | OP.PCM_ITS ---
Report of Operation Date of Procedure: 12/25/22 Pre-Operative Diagnosis: Flow left upper extremity brachial cephalic arterioven ous hemodialysis fistula Post-Operative Diagnosis: High-grade proximal fistula venous stenosis Surgery/Procedure Performed:: Left upper extremity fistulogram with 9 x 2 conquest angioplasty Description of Surgical Findings:: Timeout informed consent was obtained. 82-year-old gentleman was taken to the special procedures lab placed upon the table he received 50 mcg of fentanyl and 1 mg of Versed is intravenous sedation after informed consent timeout was performed. The left upper extremity was sterilely prepped and draped. 2% lidocaine was instilled as a local anesthetic. Very close to the arterial anastomosis antegrade with flow local was instilled micropuncture needle inserted micropuncture wire inserted 6 Icelandic short sheath dilator inserted. Using Isovue contrast fistulogram was obtained of the left extremity. This demonstrated a patent cephalic vein to brachial artery anastomosis but within th e first 5 cm of the origin there was a high-grade area of at least 80% stenosis. There was good central venous outflow. I up sheath to a 7 Icelandic sheath. Over a Glidewire placed a 9 x 2 conquest balloon. Balloon angioplasty was performed and at 20 adriana of pressure there was release of the stenosis. We brought the balloon up to total of 30 adriana of pressure and held for 3 minutes. The balloon was then removed fistulogram was performed and now there was 100% resolution of the stenosis. The fistula now had resumption of a palpable thrill and the pulsatility markedly diminished. You suture of 4-0 nylon was placed for hemostasis and the sheath was removed. Images demonstrate a left upper arm brachiocephalic arteriovenous hemodialysis fistula with a high-grade proximal fistula venous stenosis in the distal left upper arm. Subsequent to 9 x 2 conquest angioplasty there was resolution and there was good central venous outflow. Specimens none. Drains none. Blood loss minimal. Total contrast used 15 cc. Meir Nelson M.D., F.A.C.S. Surgeon: Meir Nelson Type of Anesthesia: IV Sedation and Local
== END 2022-12-25 11:35 | disposition home or self-care (01) ==
PROVIDERS: PCP Family Medicine; Referring Provider Surgery; Visit Provider Surgery
DX: T82.898A Other specified complication of vascular prosthetic devices, implants and grafts, initial encounter (principal); Z99.2 Dependence on renal dialysis; I12.0 Hypertensive chronic kidney disease with stage 5 chronic kidney disease or end stage renal disease; N18.5 Chronic kidney disease, stage 5; I73.9 Peripheral vascular disease, unspecified; I48.91 Unspecified atrial fibrillation; E11.9 Type 2 diabetes mellitus without complications; I87.2 Venous insufficiency (chronic) (peripheral); Z79.82 Long term (current) use of aspirin; I25.2 Old myocardial infarction; Z86.73 Personal history of transient ischemic attack (TIA), and cerebral infarction without residual deficits
CPT/HCPCS: 36902; 99152; 99153; C1769; Q9967; C1725; C1894

== ENCOUNTER → 2023-01-28 | Outpatient (REF) | payer MEDICARE, MEDICAID, SELFPAY ==
[2023-01-28 09:15] LABS: Cholesterol 87 mg/dL (200); High Density Lipoprotein 37 mg/dL; Triglycerides 110 mg/dL; Very Low Density Lipoprotein 22 mg/dL (5-40)
== END ==
LOC: OLS.SW 04:00
PROVIDERS: PCP Family Medicine; Referring Provider Family Medicine; Visit Provider Family Medicine
DX: N18.6 End stage renal disease (principal); Z79.899 Other long term (current) drug therapy
CPT/HCPCS: 36415; 80061; 83036

== ENCOUNTER → 2023-02-06 | Outpatient (REF) | payer MEDICARE, MEDICAID, SELFPAY ==
[2023-02-06 08:19] LABS: Anion Gap 6 (5-15); BUN 77 mg/dL (7-18); Calcium,Total 9.3 mg/dL (8.5-10.1); Chloride 96 mmol/L (98-107); Creatinine, Serum 6.98 mg/dL (0.70-1.30); EST Glomerular Filtration Rate 8 mL/min (>60); Est Glom Filt Rate - Afr Amer 10 mL/min (>60); Glucose 131 mg/dL (74-106); Potassium 4.5 mmol/L (3.5-5.1); Sodium Level 132 mmol/L (136-145)
[2023-02-06 10:30] LABS: Hematocrit 25.6 % (40-54); Hemoglobin 8.4 g/dL (13.0-16.5); Mean Corp Hgb Conc 32.8 g/dL (32-36); Mean Corpuscular Hgb 35.4 pg (27.0-32.0); Mean Platelet Vol. 11.1 fl (6.2-12.0); Platelet Count 163 K/mm3 (150-450); RBC Distribution Width CV 13.2 % (11.6-14.6); RBC Distribution Width SD 51.4 fl (35.1-43.9); Red Blood Count 2.37 M/mm3 (4.6-6.2); White Blood Count 5.8 K/mm3 (4.4-11.0)
== END ==
LOC: OLS.SW 05:00
PROVIDERS: PCP Family Medicine; Visit Provider Family Medicine
DX: E11.22 Type 2 diabetes mellitus with diabetic chronic kidney disease (principal); N18.6 End stage renal disease; D64.9 Anemia, unspecified
CPT/HCPCS: 36415; 80048; 85027

== ENCOUNTER → 2023-02-18 | Outpatient (REF) | payer MEDICARE, MEDICAID, SELFPAY ==
[2023-02-18 09:27] LABS: Absolute Lymphocyte Count 1.11 X10^3/uL (0.83-4.51); Absolute Neutrophil Count 2.9 X10^3/uL (2.0-7.7); Basophil# 0.03 X10^3/uL; Basophil% 0.6 % (0-1); Eosinophil# 0.24 X10^3/uL; Eosinophils% 4.8 % (0-5); Hematocrit 26.4 % (40-54); Hemoglobin 8.7 g/dL (13.0-16.5); Lymphocyte # 1.11 X10^3/ul (0.83-4.51); Mean Corpuscular Hgb 35.8 pg (27.0-32.0); Mean Corpuscular Volume 108.6 fL (80-94); Mean Platelet Vol. 10.3 fl (6.2-12.0); Monocyte# 0.73 X10^3/uL; Monocyte% 14.5 % (0-10); NRBC Flagged by Analyzer 0 % (0-5); Neutrophil # 2.92 X10^3/uL (2.7-7.7); Neutrophil % 57.7 % (47-70); Platelet Count 173 K/mm3 (150-450); RBC Distribution Width CV 13.8 % (11.6-14.6); RBC Distribution Width SD 54.9 fl (35.1-43.9); Red Blood Count 2.43 M/mm3 (4.6-6.2); White Blood Count 5.1 K/mm3 (4.4-11.0)
[2023-02-18 09:46] LABS: Albumin, Serum 2.9 g/dL (3.2-5.0); BUN 61 mg/dL (7-18); BUN/Creat Ratio 9.1 RATIO (10-20); Chloride 98 mmol/L (98-107); Cholesterol 108 mg/dL (200); Creatinine, Serum 6.73 mg/dL (0.70-1.30); EST Glomerular Filtration Rate 9 mL/min (>60); Est Glom Filt Rate - Afr Amer 10 mL/min (>60); Ferritin 1192 ng/mL (26-388); Glucose 102 mg/dL (74-106); Hemoglobin A1c 5.6 % (3.8-5.6); High Density Lipoprotein 37 mg/dL; Iron 77 ug/dL (65-175); Magnesium 3.2 mg/dL (1.6-2.6); Phosphorus 5.8 mg/dL (2.5-4.9); Potassium 5.6 mmol/L (3.5-5.1); Sodium Level 133 mmol/L (136-145); Triglycerides 83 mg/dL; Very Low Density Lipoprotein 17 mg/dL (5-40)
== END ==
LOC: OLS.SWAL 05:00
PROVIDERS: PCP Family Medicine; Visit Provider Internal Medicine
DX: I10 Essential (primary) hypertension (principal); D63.1 Anemia in chronic kidney disease; E11.22 Type 2 diabetes mellitus with diabetic chronic kidney disease; N18.6 End stage renal disease; J96.01 Acute respiratory failure with hypoxia
CPT/HCPCS: 36415; 80061; 80069; 82728; 83036; 83540; 83735; 85025

== ENCOUNTER → 2023-02-22 | Outpatient (CLI) | payer MEDICARE, MEDICAID, SELFPAY ==
[2023-02-22 13:54] LABS: Potassium 6.3 mmol/L (3.5-5.1)
== END | disposition home or self-care (01) ==
LOC: LABSPEC 12:16
PROVIDERS: Internal Medicine Nephrology; PCP Family Medicine; Referring Provider Internal Medicine; Visit Provider Internal Medicine
DX: N18.6 End stage renal disease (principal); E87.5 Hyperkalemia
CPT/HCPCS: 84132

== ENCOUNTER → 2023-05-06 | Outpatient (REF) | payer MEDICARE, MEDICAID, SELFPAY ==
[2023-05-06 08:45] LABS: Hematocrit 30.7 % (40-54); Hemoglobin 9.8 g/dL (13.0-16.5); Mean Corp Hgb Conc 31.9 g/dL (32-36); Mean Corpuscular Hgb 34.3 pg (27.0-32.0); Mean Corpuscular Volume 107.3 fL (80-94); Mean Platelet Vol. 11.3 fl (6.2-12.0); Platelet Count 162 K/mm3 (150-450); RBC Distribution Width SD 51.4 fl (35.1-43.9); Red Blood Count 2.86 M/mm3 (4.6-6.2); White Blood Count 5.3 K/mm3 (4.4-11.0)
[2023-05-06 08:51] LABS: Anion Gap 6 (5-15); BUN 48 mg/dL (7-18); BUN/Creat Ratio 7.7 RATIO (10-20); Calcium,Total 9.6 mg/dL (8.5-10.1); Chloride 97 mmol/L (98-107); Creatinine, Serum 6.26 mg/dL (0.70-1.30); EST Glomerular Filtration Rate 9 mL/min (>60); Est Glom Filt Rate - Afr Amer 11 mL/min (>60); Glucose 90 mg/dL (74-106); Potassium 4.8 mmol/L (3.5-5.1); Sodium Level 133 mmol/L (136-145)
[2023-05-10 08:21] LABS: Cholesterol 127 mg/dL (200); High Density Lipoprotein 34 mg/dL; Triglycerides 114 mg/dL; Very Low Density Lipoprotein 23 mg/dL (5-40)
[2023-05-10 08:41] LABS: Hemoglobin A1c 6.2 % (3.8-5.6)
== END ==
LOC: OLS.SWAL 04:00
PROVIDERS: PCP Family Medicine; Referring Provider Internal Medicine; Visit Provider Internal Medicine
DX: E11.22 Type 2 diabetes mellitus with diabetic chronic kidney disease (principal); N18.6 End stage renal disease; D64.9 Anemia, unspecified
CPT/HCPCS: 36415; 80048; 80061; 83036; 85027

== ENCOUNTER → 2023-05-13 | Outpatient (REF) | payer MEDICARE, MEDICAID, SELFPAY ==
[2023-05-13 06:37] LABS: Cholesterol 124 mg/dL (200); High Density Lipoprotein 33 mg/dL; Triglycerides 122 mg/dL; Very Low Density Lipoprotein 24 mg/dL (5-40)
[2023-05-13 07:52] LABS: Hemoglobin A1c 5.9 % (3.8-5.6)
== END ==
LOC: OLS.SWAL 05:00
PROVIDERS: PCP Family Medicine; Visit Provider Internal Medicine
DX: E11.22 Type 2 diabetes mellitus with diabetic chronic kidney disease (principal); N18.9 Chronic kidney disease, unspecified
CPT/HCPCS: 36415; 80061; 83036

== ENCOUNTER 2023-05-26 21:51 | Inpatient (IN) | payer MEDICARE, MEDICAID, SELFPAY ==
[2023-05-26 21:52] VITALS: BP 168/62; PULSE 77; RESP 17; TEMP 37.7; O2SAT 87; BMI 22.2
[2023-05-26 21:57] VITALS: O2SAT 91
--- NOTE | 2023-05-26 22:10 | CT_ITS ---
STUDY: CT BRAIN WITHOUT CONTRAST REASON FOR EXAM: Male, 82 years old. trauma RADIATION DOSAGE (If Supplied By Facility): CTDIvol = ( 47.06 ) mGy, DLP = ( 996.20 ) mGycm TECHNIQUE: Transaxial CT imaging of the brain was performed without administration of intravenous contrast material. Individualized dose optimization techniques were used for this CT. COMPARISON: 02/17/2022. FINDINGS: Mild right frontal soft tissue swelling. Normal calvarium. There is moderate cerebral atrophy with widening of the extra-axial spaces and ventricular dilatation. There are areas of decreased attenuation within the white matter tracts of the supratentorial brain, consistent with microvascular disease changes. There is no intracranial hemorrhage. There are no findings of an acute ischemic infarction. Normal visualized paranasal sinuses. CT/Brain/Head without Contrast IMPRESSION: No acute findings. Microvascular ischemia. Atrophy. Electronically Signed: Antonieta Castillo MD at 22:50 EDT Reading Location ID and State: [id number] / Tel , Service support ,
--- NOTE | 2023-05-26 22:10 | EKG12_ITS ---
Test Reason : FALL Blood Pressure : / mmHG Vent. Rate : 065 BPM Atrial Rate : 065 BPM P-R Int : 212 ms QRS Dur : 108 ms QT Int : 422 ms P-R-T Axes : 000 010 096 degrees QTc Int : 438 ms Sinus rhythm with 1st degree A-V block with occasional Premature ventricular complexes Nonspecific ST abnormality Abnormal QRS-T angle, consider primary T wave abnormality Abnormal ECG Confirmed by ABRIL CANTU ([id number]), scientific editor WOODY ESPINO ([id number]) on 06/03/2023 2:01:14 PM Referred By: LIBRA Confirmed By:ABRIL CANTU
--- NOTE | 2023-05-26 22:10 | CT_ITS ---
INDICATION: polytrauma EXAMINATION: CT CERVICAL SPINE - CT Spine Cervical W/O Contrast Injection TECHNIQUE: Helically acquired images were obtained of the cervical spine. 2D reformatted images were reviewed. A radiation dose optimization technique was used for this scan. IV Contrast dosage and agent: None. RADIATION DOSAGE (If Supplied By Facility): CTDIvol = ( 18.36 ) mGy, DLP = ( 362.93 ) mGycm COMPARISON: 10/10/2021. FINDINGS: VERTEBRAE: No fracture. Normal craniocervical junction and cervicothoracic junction. DISCS and SPINAL CANAL: C2-3: Normal disc height and morphology. Normal central canal. Mild left foraminal encroachment due to uncinate and facet hypertrophy. C3-4: Disc space narrowing. 5 mm anterolisthesis, no change. No demonstrated fracture. Mild canal stenosis and foraminal stenosis due to anterolisthesis. C4-5: Disc space narrowing. Spondylotic bar. Borderline canal stenosis. Mild left foraminal encroachment. Severe right foraminal encroachment due to uncinate and facet hypertrophy. C5-6: Disc space narrowing. Sclerotic endplate changes. 3 mm retrolisthesis, new or increased. Moderate canal stenosis. Severe foraminal stenosis. C6-7: Normal disc height and morphology. 4 mm anterolisthesis, no change. No canal stenosis. Moderate to severe foraminal stenosis greater on the left. C7-T1: Normal disc height and morphology. Normal central canal. Foramina are patent. NECK SOFT TISSUES: No prevertebral soft tissue swelling. There is no cervical adenopathy. LUNG APICES: Right pleural effusion. CT/Spine Cervical without Contras IMPRESSION: No evidence of cervical trauma. Moderate C5-6 canal stenosis. Mild stenosis at C3-4. Multilevel listhesis. Degenerative changes detailed above. Electronically Signed: Antonieta Castillo MD at 23:12 EDT Reading Location ID and State: [id number] / Tel , Service support ,
--- NOTE | 2023-05-26 22:12 | ED.VIS.FALL ---
HPI HPI - Fall History of Present Illness Chief Complaint: Fall Informant: patient and family Narrative Narrative: Brought in by EMS from assisted living mechanical fall x2 today. Daughter currently present. 3-day postop left second toe amputation. Recovering back at assisted living. He and was with a walker does have a wheelchair. Daughter found patient in the room on the ground this morning tripping over his walker. This evening tripped over another patient's walker in the dining room. Head injury. Patient on dialysis Fridays. He does make urine to 3 times a day. Reports some burning with urine. Report is placed on oxygen after second fall. Reported recent cough. No fevers. No chest pains. Facial abrasion from the second fall. Daughter reports was unsteady throughout the day. Report concerns for confusion. Patient on aspirin and Plavix history of coronary disease. Tetanus in last couple years. Patient surgery was done outpatient and was not hospitalized. His cough started prior to his procedure. Tetanus Immunization: <5 years [facility] Medical History (Updated 05/27/23 @ 01:39 by Stacey Goldman) Anemia Asthma Atrial fibrillation Benign essential HTN Brain aneurysm Chronic renal failure, stage 5 Colon polyps COPD (chronic obstructive pulmonary disease) CVA (cerebral vascular accident) Diabetes Dialysis complication Dialysis patient Fall Febrile illness, acute Fistula Hepatitis C History of GI bleed Hyperlipemia Hyponatremia Leukocytosis LFT elevation Metabolic encephalopathy Multifocal pneumonia NSTEMI, initial episode of care Problem with dialysis access PVD (peripheral vascular disease) Sleep apnea TIA (transient ischemic attack) Tobacco use disorder Troponin level elevated Type II diabetes mellitus, uncontrolled Home Medications mycophenolate mofetil 500 mg tablet 500 mg PO QHS rejection 09/06/20 [History Last Taken 06/29/21] ergocalciferol (vitamin D2) 1,250 mcg (50,000 unit) capsule 1,250 mcg PO QMONTH health maintenance 11/03/20 [History Last Taken 06/14/21] vitamin B complex-vitamin C-folic acid 0.8 mg tablet (Nephro-Lola) 1 tab PO DAILY health maintenance 07/01/21 [History Last Taken 06/29/21 17:00] acetaminophen 325 mg tablet (Tylenol) 650 mg PO Q4H PRN PRN Pain Score 1-10/Temp > 100.7 F 10/10/21 [History Last Taken Unknown] aspirin 81 mg tablet,delayed release 81 mg PO DAILY heart health 10/26/21 [History Last Taken Unknown] fiber 2 cap PO QHS PRN constipation 10/26/21 [History Last Taken Unknown] acetaminophen 650 mg rectal suppository 650 mg MO Q4H PRN pain/fever 02/17/22 [History Last Taken Unknown] aluminum-magnesium hydroxide 225 mg-200 mg/5 mL oral suspension 30 ml PO Q4H PRN PRN Indigestion 02/17/22 [History Last Taken Unknown] ammonium lactate 12 % lotion 1 applic topical TID dry skin 02/17/22 [History Last Taken Unknown] bisacodyl 10 mg rectal suppository 10 mg MO DAILY PRN Constipation 02/17/22 [History Last Taken Unknown] calcium acetate(phosphat bind) 667 mg capsule 1,334 mg PO TID binder 02/17/22 [History Last Taken Unknown] dextrose 40 % oral gel (Glucose Gel) 10 g PO Q15M PRN Hypoglycemia 02/17/22 [History Last Taken Unknown] glucagon 1 mg injection kit 1 mg IM PRN PRN Hypoglycemia 02/17/22 [History Last Taken Unknown] guaifenesin 100 mg/5 mL oral liquid 200 mg PO Q4H PRN Congestion 02/17/22 [History Last Taken Unknown] lidocaine 4 % topical patch 1 patch topical DAILY pain 02/17/22 [History Last Taken Unknown] loperamide 2 mg capsule 2 mg PO Q6H PRN Diarrhea 02/17/22 [History Last Taken Unknown] magnesium hydroxide 400 mg/5 mL oral suspension (Milk of Magnesia) 30 ml PO DAILY PRN Constipation 02/17/22 [History Last Taken Unknown] sodium phosphates 19 gram-7 gram/118 mL enema (Fleet Enema) 118 ml MO DAILY PRN Constipation 02/17/22 [History Last Taken Unknown] triamcinolone acetonide 0.1 % topical cream 1 applic topical BID PRN psoriasis 02/17/22 [History Last Taken Unknown] amlodipine 5 mg tablet 5 mg PO BID blood pressure 05/26/23 [History Last Taken Unknown] carvedilol 3.125 mg tablet 12.5 mg PO BID heart health 05/26/23 [History Last Taken Unknown] clopidogrel 75 mg tablet (Plavix) 75 mg PO DAILY antiplatelet 05/26/23 [History Last Taken Unknown] doxycycline hyclate 100 mg capsule 100 mg PO BID antibiotic 05/26/23 [History Last Taken Unknown] hydrocodone-acetaminophen 5-325mg 5mg-325mg 1 tab PO Q6H PRN pain 05/26/23 [History Last Taken Unknown] loperamide 2 mg capsule (Anti-Diarrheal (loperamide)) 2 mg PO MOTUWEFR dialysis 05/27/23 [History Last Taken Unknown] naproxen 500 mg tablet 500 mg PO DAILY PRN pain 05/27/23 [History Last Taken Unknown] Allergy/AdvReac Type Severity Reaction Status Date / Time varenicline tartrate Allergy makes me Verified 05/26/23 21:52 [From Chantix] weird, hallucinations Family History Mother CVA (cerebral vascular accident) Diabetes Hypertension Father Colon cancer Diabetes Brother Diabetes Surgical History history insertion dialysis catheter (~11/04/20) History of cataract extraction History of colectomy History of colonoscopy (~06/2020) History of surgery on left wrist History of vein stripping Social History (Updated 05/26/23 @ 23:[address] Emily Weeks MD) housing: long-term Smoking Status: Current every day smoker tobacco type: cigarettes alcohol intake: never substance use type: does not use ROS ROS ED Constitutional Constitutional ED: Denies chills, fever(s) or sweats Eyes Eyes: Denies change in vision ENT ENT ED: Denies dysphagia or sore throat Cardiovascular Cardiovascular: Denies chest pain, leg edema, palpitations or racing heartbeat Respiratory/Chest Respiratory/Chest: Reports cough; Denies dyspnea or dyspnea on exertion Gastrointestinal Gastrointestinal: Denies abdominal pain, diarrhea, nausea or vomiting Genitourinary Genitourinary ED: Reports dysuria; Denies hematuria or urinary frequency Musculoskeletal Musculoskeletal: Denies back pain, extremity pain or neck pain Integumentary Denies rash or wounds Neurologic Neurologic: Reports headache(s); Denies paresthesias or weakness EXAM Physical Exam Const Vital Signs: 05/26/23 21:52 05/26/23 21:57 05/26/23 22:25 Temperature 100 F H Temperature Source Oral Pulse Rate 77 Respiratory Rate 17 Respiratory Effort Blood Pressure 168/62 H Blood Pressure Mean 97 Pulse Ox 87 91 Oxygen Delivery Method Room Air Nasal Cannula Nasal Cannula Oxygen Flow Rate (L/min) 3 3 05/26/23 22:26 Temperature Temperature Source Pulse Rate Respiratory Rate Respiratory Effort Normal Blood Pressure Blood Pressure Mean Pulse Ox Oxygen Delivery Method Oxygen Flow Rate (L/min) Positive well nourished and well developed Constitutional Narrative: 3 L nasal cannula GCS 15. General Appearance ED: well developed and NAD HEENT Reports moist mucous membranes HEENT Narrative: Right frontal contusion with abrasion. No hemotympanums. No facial bone tenderness. normocephalic Eyes PERRL, EOMs intact bilaterally and conjunctivae normal General Eye ED: Yes normal appearance of both eyes Neck no lymphadenopathy and supple General: Negative for tenderness Chest Wall inspection of chest normal and palpation of chest normal Chest: Negative for tenderness Resp normal respiratory effort and normal air movement Effort and Inspection: symmetric chest movement; Negative for respiratory distress Cardio regular rate, regular rhythm and no murmurs Peripheral Pulses: pulses 2+ throughout GI normal to inspection, nondistended, normoactive bowel sounds and non-tender Palpation: Negative for guarding or rebound tenderness present Back/Spine no CVA tenderness and no thoracic nor lumbar tenderness Back/Spine Narrative: No midline tenderness no ecchymosis no step-offs. Extremity normal to inspection Extremity Narrative: Full range of motion upper and lower extremities deformities or pain. Negative logroll of lower extremities. Left foot examination sutures clean dry intact of the distal second metatarsal. Mild ecchymosis noted at the base of the great toe. Positive thrill fistula left upper extremity. General Extremety ED: Negative for edema or tenderness General Extremity: Negative for edema Neuro oriented x3, CN's II-XII intact bilaterally and no sensory deficits noted Sensorium / Orientation: awake and alert Skin no rashes or lesions noted and no wounds MDM MDM MDM Narrative Medical decision making narrative: Interventions / MDM: Differential diagnosis: Pneumonia, UTI Diagnosis considered but do not suspect: Intracranial hemorrhage however CT negative. My EKG interpretation: Sinus rate of 65, no ST or T wave changes. First-degree AV block. PVC noted. QTc 438. No hyperkalemic changes. Imaging independently reviewed and interpreted by myself: 2 view chest x-ray: Infiltrate right upper, right lower. CT head and neck: No intracranial hemorrhage, no fractures also read by radiology. External documents reviewed: N/A Test considered but not ordered:N/A ED course: Patient mechanical fall with injuries however hypoxic at assisted living and on arrival. He is on 3 L of oxygen. Reporting a cough and dysuria. Temperature was 100 on arrival. Heart rate respiratory rate normal range. Trauma scans head and neck ordered shows no acute process. Two-view chest x-ray concerns for infiltrative findings. Labs White count of 13.3. Chronic anemia heme: 8.9. Creatinine 6.63 BUN 48. He is dialysis patient. His potassium is 4.4. Sodium 131. 2325: Urine still pending collection at this time. Stable on 3 L oxygen. New oxygen demand with pneumonia findings. Will discuss with hospitalist for admission. 2335: I spoke with hospitalist Dr. Weeks, patient dialysis patient recent surgery, blood cultures x2 will be ordered. Currently 1 out of 4 SIRS criteria for WBC elevation. Not clinically septic. No respiratory distress. Will broadly cover Zosyn and Vanco at this time for his pneumonia. 2350: Antibiotics are running after blood cultures. Per nursing patient due for his [place] for postop foot pain. This was ordered. Re-evaluation: stable Disposition discussed with patient/family/significant other: Patient and daughter Case discussed with consulting clinician: Hospitalist This note was generated with RunAlong dictation software. It may contain incorrect words, spelling, and punctuation that were not noted in checking the note before signing. Lab Data Attestation: I reviewed the patient's lab results. Labs: Laboratory Results - last 24 hr 05/26/23 05/26/23 22:20 22:28 WBC 13.3 H RBC 2.64 L Hgb 8.9 L Hct 28.2 L MCV 106.8 H MCH 33.7 H MCHC 31.6 L RDW Std Deviation 52.5 H RDW Coeff of Mihaela 13.4 Plt Count 165 MPV 11.0 Immature Gran % (Auto) 1.400 H Neut % (Auto) 85.0 H Lymph % (Auto) 4.3 L [place] % (Auto) 9.1 Eos % (Auto) 0.0 Baso % (Auto) 0.2 Absolute Neuts (auto) 11.3 H Absolute Lymphs (auto) 0.57 L Nucleated RBC % 0 Differential Comment SCANNED Sodium 131 L Potassium 4.4 Chloride 91 L Carbon Dioxide 29.0 Anion Gap 11 BUN 48 H Creatinine 6.63 H Estim Creat Clear Calc 8.33 Est GFR (MDRD) Af Amer 10 L Est GFR (MDRD) Non-Af 9 L BUN/Creatinine Ratio 7.2 L Glucose 204 H Calcium 10.2 H Magnesium 3.6 H Radiography Diagnostic Testing: Clinical Impression(s) from Imaging Studies Brain CT 05/26/23 22:10 IMPRESSION: No acute findings. Microvascular ischemia. Atrophy. Electronically Signed: Antonieta Castillo MD at 22:50 EDT Reading Location ID and State: [place] Harris MD Tel , Service support , Cervical Spine CT 05/26/23 22:10 IMPRESSION: No evidence of cervical trauma. Moderate C5-6 canal stenosis. Mild stenosis at C3-4. Multilevel listhesis. Degenerative changes detailed above. Electronically Signed: Antonieta Castillo MD at 23:12 EDT Reading Location ID and State: [facility] Harris MD Tel , Service support , Chest X-Ray 05/26/23 22:43 IMPRESSION: Hazy pulmonary opacities suspicious for pneumonia. Small pleural effusion. Electronically Signed: Antonieta Castillo MD at 23:14 EDT Reading Location ID and State: Raven Harris MD Tel , Service support , Discharge Plan Dx/Rx/DC Orders Clinical Impression: End-stage renal disease on hemodialysis, Closed head injury, HCAP (healthcare-associated pneumonia), Hypoxia, Facial hematoma, Abrasion, Chronic anemia Disposition Disposition: Acute Care [facility] Discharge Date/Time: 05/27/23 00:08
[2023-05-26 22:31] LABS: Absolute Lymphocyte Count 0.57 X10^3/uL (0.83-4.51); Absolute Neutrophil Count 11.3 X10^3/uL (2.0-7.7); Basophil# 0.02 X10^3/uL; Basophil% 0.2 % (0-1); Hematocrit 28.2 % (40-54); Hemoglobin 8.9 g/dL (13.0-16.5); Lymphocyte # 0.57 X10^3/ul (0.83-4.51); Lymphocyte % 4.3 % (19-41); Mean Corp Hgb Conc 31.6 g/dL (32-36); Mean Corpuscular Hgb 33.7 pg (27.0-32.0); Mean Corpuscular Volume 106.8 fL (80-94); Monocyte# 1.21 X10^3/uL; Monocyte% 9.1 % (0-10); NRBC Flagged by Analyzer 0 % (0-5); Neutrophil # 11.29 X10^3/uL (2.7-7.7); POSITIVE DIFFERENTIAL YES; Platelet Count 165 K/mm3 (150-450); RBC Distribution Width CV 13.4 % (11.6-14.6); RBC Distribution Width SD 52.5 fl (35.1-43.9); Red Blood Count 2.64 M/mm3 (4.6-6.2); White Blood Count 13.3 K/mm3 (4.4-11.0)
[2023-05-26 22:36] LABS: Differential Indicated SCAN CRITERIA MET
--- NOTE | 2023-05-26 22:43 | RAD_ITS ---
INDICATION: cough EXAMINATION/TECHNIQUE: X-RAY - XR Chest 2 Views COMPARISON: 07/22/2021. FINDINGS: LINES/DEVICES: None. LUNGS: Small pleural effusion. Hazy opacities in the right upper, right lower and left lower lobes. MEDIASTINUM AND CARDIOVASCULAR STRUCTURES: Cardiac silhouette not enlarged. Central airways and mediastinal contour are unremarkable. BONES AND SOFT TISSUES: Unremarkable. RAD/Chest PA and Lateral IMPRESSION: Hazy pulmonary opacities suspicious for pneumonia. Small pleural effusion. Electronically Signed: Antonieta Castillo MD at 23:14 EDT Reading Location ID and State: [id number] / Tel , Service support ,
[2023-05-26 22:48] LABS: Anion Gap 11 (5-15); BUN 48 mg/dL (7-18); BUN/Creat Ratio 7.2 RATIO (10-20); Calcium,Total 10.2 mg/dL (8.5-10.1); Chloride 91 mmol/L (98-107); Creatinine, Serum 6.63 mg/dL (0.70-1.30); EST Glomerular Filtration Rate 9 mL/min (>60); Est Glom Filt Rate - Afr Amer 10 mL/min (>60); Estimated Creatinine Clearance 8.33 ml/min; Glucose 204 mg/dL (74-106); Potassium 4.4 mmol/L (3.5-5.1); Sodium Level 131 mmol/L (136-145)
[2023-05-26 22:51] LABS: Differential Comment SCANNED
--- NOTE | 2023-05-26 23:31 | PCM.HP.STD ---
HPI - General General Date of Admission: 05/26/23 Date of Service: 05/26/23 Chief Complaint: Falls, confusion, recent surgery. 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 treated with course of mycophenolate of note per discussion with daughter which she reports he is no longer taking, Chronic macrocytic anemia/AOCD, ESRD on HD, Diabetes mellitus type II, Chronic Hyponatremia, HLD, HTN, Chronic Systolic CHF, Severe protein calorie malnutrition, Asthma/COPD, GOKUL, Tobacco use, Hx CVA, Questionable Hepatitis C w/ last note 12/2022 per GI w/ recommendation to check hepatitis C PCR RNA quant to assure this was not a false positive given no IVDA history, PAF, Hx Colon CA s/p colectomy, Hx GI bleed who presents to the [facility] ED on 05/26/23 with history of left second toe amputation 3 days prior to current presentation by Dr. Vazquez, recovering currently assisted living unfortunately falling x2 on day of presentation with daughter finding him at 1 point on the ground in the morning tripping over his walker unfortunately hitting his head prompting ED evaluation. He does report a mild ongoing cough that was even prior to his foot surgery but patient daughter present and notes this is chronic. Patient also reports making urine approximately 3 times a day with some mild dysuria. Following his recent fall at the facility he was placed on oxygen supplementation but denied any recent cough nor any chest pain. Per daughter patient then became more unsteady on his feet and confused prompting eventual ED evaluation. He does report recent cough but no markedly productive sputum. Work-up in the ED included T100, heart 77, BP 160/62, respiratory rate 17, initially noted to be 87% on room air with improvement to 91% on 3 L nasal cannula, CBC with WBC 13.3, hemoglobin 8.9, MCV 106.8, platelet 165 with left shift and lymphopenia, BMP with sodium 131, chloride 91, BUN/creatinine 48/6.63, glucose 204, CT of the brain with no acute intracranial findings with chronic microvascular ischemia and atrophy, CT cervical spine with no evidence of cervical trauma, moderate C5-6 canal stenosis, mild stenosis C3-4, multilevel listhesis, degenerative changes, chest x-ray, chest x-ray with hazy pulmonary opacities suspicious for pneumonia, small pleural effusion, EKG with sinus rhythm with first-degree AV block with nonspecific changes with no acute evidence of ischemia, Bld Cx x 2 pending per ED. UA pending upon request evaluation of patient. In the ED patient administered IV Zosyn and IV Vancomycin. [facility] Medical History Anemia Asthma Atrial fibrillation Benign essential HTN Brain aneurysm Chronic renal failure, stage 5 Colon polyps COPD (chronic obstructive pulmonary disease) CVA (cerebral vascular accident) Diabetes Dialysis complication Dialysis patient Fall Febrile illness, acute Fistula Hepatitis C History of GI bleed Leukocytosis LFT elevation Metabolic encephalopathy Multifocal pneumonia NSTEMI, initial episode of care Problem with dialysis access PVD (peripheral vascular disease) Sleep apnea Tobacco use disorder Troponin level elevated Type II diabetes mellitus, uncontrolled Home Medications mycophenolate mofetil 500 mg tablet 500 mg PO QHS rejection 09/06/20 [History Last Taken 06/29/21] ergocalciferol (vitamin D2) 1,250 mcg (50,000 unit) capsule 1,250 mcg PO QMONTH health maintenance 11/03/20 [History Last Taken 06/14/21] vitamin B complex-vitamin C-folic acid 0.8 mg tablet (Nephro-Lola) 1 tab PO DAILY health maintenance 07/01/21 [History Last Taken 06/29/21 17:00] acetaminophen 325 mg tablet (Tylenol) 650 mg PO Q4H PRN PRN Pain Score 1-10/Temp > 100.7 F 10/10/21 [History Last Taken Unknown] aspirin 81 mg tablet,delayed release 81 mg PO DAILY 10/26/21 [History Last Taken Unknown] fiber 2 cap PO QHS 10/26/21 [History Last Taken Unknown] acetaminophen 650 mg rectal suppository 650 mg UT Q4H PRN pain/fever 02/17/22 [History Last Taken Unknown] aluminum-magnesium hydroxide 225 mg-200 mg/5 mL oral suspension 30 ml PO Q4H PRN PRN Indigestion 02/17/22 [History Last Taken Unknown] ammonium lactate 12 % lotion 1 applic topical TID 02/17/22 [History Last Taken Unknown] bisacodyl 10 mg rectal suppository 10 mg UT DAILY PRN Constipation 02/17/22 [History Last Taken Unknown] calcium acetate(phosphat bind) 667 mg capsule 1,334 mg PO TID 02/17/22 [History Last Taken Unknown] dextrose 40 % oral gel (Glucose Gel) 10 g PO Q15M PRN Hypoglycemia 02/17/22 [History Last Taken Unknown] glucagon 1 mg injection kit 1 mg IM PRN PRN Hypoglycemia 02/17/22 [History Last Taken Unknown] guaifenesin 100 mg/5 mL oral liquid 200 mg PO Q4H PRN Congestion 02/17/22 [History Last Taken Unknown] lidocaine 4 % topical patch 1 patch topical DAILY 02/17/22 [History Last Taken Unknown] loperamide 2 mg capsule 2 mg PO Q6H PRN Diarrhea 02/17/22 [History Last Taken Unknown] magnesium hydroxide 400 mg/5 mL oral suspension (Milk of Magnesia) 30 ml PO DAILY PRN Constipation 02/17/22 [History Last Taken Unknown] sodium phosphates 19 gram-7 gram/118 mL enema (Fleet Enema) 118 ml UT DAILY PRN Constipation 02/17/22 [History Last Taken Unknown] triamcinolone acetonide 0.1 % topical cream 1 applic topical BID PRN psoriasis 02/17/22 [History Last Taken Unknown] amlodipine 5 mg tablet 5 mg PO BID 05/26/23 [History Last Taken Unknown] carvedilol 3.125 mg tablet 12.5 mg PO BID 05/26/23 [History Last Taken Unknown] clopidogrel 75 mg tablet (Plavix) 75 mg PO DAILY 05/26/23 [History Last Taken Unknown] doxycycline hyclate 100 mg capsule 100 mg PO BID 05/26/23 [History Last Taken Unknown] hydrocodone-acetaminophen 5-325mg 5mg-325mg 1 tab PO Q6H PRN pain 05/26/23 [History Last Taken Unknown] Allergy/AdvReac Type Severity Reaction Status Date / Time varenicline tartrate Allergy makes me Verified 05/26/23 21:52 [From Chantix] weird, hallucinations Family History Mother CVA (cerebral vascular accident) Diabetes Hypertension Father Colon cancer Diabetes Brother Diabetes Surgical History history insertion dialysis catheter (~11/04/20) History of cataract extraction History of colectomy History of colonoscopy (~06/2020) History of surgery on left wrist History of vein stripping Social History (Updated 05/26/23 @ 23:[address] Emily Weeks MD) housing: long term Smoking Status: Current every day smoker tobacco type: cigarettes alcohol intake: never substance use type: does not use ROS Review of Systems ROS Unobtainable: due to encephalopathy Vital Signs Vital Signs Vital Signs: 05/26/23 21:52 05/26/23 21:57 05/26/23 22:25 Temperature 100 F H Temperature Source Oral Pulse Rate 77 Respiratory Rate 17 Respiratory Effort Blood Pressure 168/62 H Blood Pressure Mean 97 Pulse Ox 87 91 Oxygen Delivery Method Room Air Nasal Cannula Nasal Cannula Oxygen Flow Rate (L/min) 3 3 05/26/23 22:26 Temperature Temperature Source Pulse Rate Respiratory Rate Respiratory Effort Normal Blood Pressure Blood Pressure Mean Pulse Ox Oxygen Delivery Method Oxygen Flow Rate (L/min) Weight Weight: 146 lb 2.664 oz Body Mass Index (BMI) 22.2 Physical Exam Narrative Physical Examination: General: Awakens to stimuli but not markedly alert, oriented to self, knows his daughter but not at baseline, very lethargic, falling asleep throughout examination, remains cooperative, seated upright in bed in no apparent distress. Skin: Normal color, normal turgor, no icterus, no cyanosis except for abrasions to the R forehead s/p fall and LLE 2nd toe amp with sutures in place, no drainage, well appearing. HEENT: AT except noted abrasions to the R forehead s/p fall/NC, EOMI, PERRLA, mildly dry MM, no carotid bruits or JVD noted. Lungs: Significantly diminished, greater bases, mildly decreased effort but no distress, no rales, ronchi or wheezing. Heart: Regular rate and rhythm; no gallop, rub audible. Abdomen: Soft, NTTP, ND, mildly hyperactive BS, no HSM. Extremities: No cyanosis, no clubbing, no marked peripheral edema except for expected mild swelling around surgical site left great toe amputation, sutures in place, no drainage, well-appearing. Neurological: Awakens to stimuli but not markedly alert, oriented to self, knows his daughter but not at baseline, very lethargic, falling asleep throughout examination, remains cooperative, seated upright in bed in no apparent distress, cognitive function not baseline intact; pupils equally reactive to light and accommodation, cranial nerves grossly normal, moving all 4 extremities, strength severely globally decreased secondary to acute presentation and underlying comorbidities. Psychiatric: Affect appears flat, fatigued, lethargic, no acute evidence of depressive or anxiety feelings. Results Lab / Micro Data 05/26/23 22:20 05/26/23 22:20 Labs: Laboratory Results - last 24 hr 05/26/23 22:20: WBC 13.3 H, RBC 2.64 L, Hgb 8.9 L, Hct 28.2 L, MCV 106.8 H, MCH 33.7 H, MCHC 31.6 L, RDW Std Deviation 52.5 H, RDW Coeff of Mihaela 13.4, Plt Count 165, MPV 11.0, Immature Gran % (Auto) 1.400 H, Neut % (Auto) 85.0 H, Lymph % (Auto) 4.3 L, Talbot % (Auto) 9.1, Eos % (Auto) 0.0, Baso % (Auto) 0.2, Absolute Neuts (auto) 11.3 H, Absolute Lymphs (auto) 0.57 L, Nucleated RBC % 0, Differential Comment SCANNED, Sodium 131 L, Potassium 4.4, Chloride 91 L, Carbon Dioxide 29.0, Anion Gap 11, BUN 48 H, Creatinine 6.63 H, Estim Creat Clear Calc 8.33, Est GFR (MDRD) Af Amer 10 L, Est GFR (MDRD) Non-Af 9 L, BUN/Creatinine Ratio 7.2 L, Glucose 204 H, Calcium 10.2 H Radiology Impression Brain CT 05/26/23 22:10 IMPRESSION: No acute findings. Microvascular ischemia. Atrophy. Electronically Signed: Antonieta Castillo MD at 22:50 EDT Reading Location ID and State: Raven Harris MD Tel , Service support , Cervical Spine CT 05/26/23 22:10 IMPRESSION: No evidence of cervical trauma. Moderate C5-6 canal stenosis. Mild stenosis at C3-4. Multilevel listhesis. Degenerative changes detailed above. Electronically Signed: Antonieta Castillo MD at 23:12 EDT Reading Location ID and State: Raven Harris MD Tel , Service support , Chest X-Ray 05/26/23 22:43 IMPRESSION: Hazy pulmonary opacities suspicious for pneumonia. Small pleural effusion. 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 with course of mycophenolate of note per discussion with daughter which she reports he is no longer taking, Chronic macrocytic anemia/AOCD, ESRD on HD, Diabetes mellitus type II, Chronic Hyponatremia, HLD, HTN, Chronic Systolic CHF, Severe protein calorie malnutrition, Asthma/COPD, GOKUL, Tobacco use, Hx CVA, Questionable Hepatitis C w/ last note 12/2022 per GI w/ recommendation to check hepatitis C PCR RNA quant to assure this was not a false positive given no IVDA history, PAF, Hx Colon CA s/p colectomy, Hx GI bleed who presents to the [facility] ED on 05/26/23 with history of left second toe amputation 3 days prior to current presentation by Dr. Vazquez, recovering currently assisted living unfortunately falling x2 on day of presentation with daughter finding him at 1 point on the ground in the morning tripping over his walker unfortunately hitting his head prompting ED evaluation. #1. Acute Encephalopathy with mechanical falls secondary to Acute Hypoxia secondary to Acute BL Pneumonia, possible GN/GP given recent admission/surgery as noted #2: Will admit to [facility], maintain on oxygen with wean as tolerated to room air, PRN albuterol, maintained on IV Zosyn and Vancomycin w/MRS screen with de-escalation if negative, HOB, IS parameters w/ pending sputum cultures, full respiratory viral panel, COVID PCR and urine antigens. PT/OT/CM consulted for discharge planning. #2. Recent left second toe amputation: We will request wound care, dressing changes, nonweightbearing with heel touch only, PT/OT/case management consulted for discharge planning. #3. Chronic systolic CHF: 07/23/2021 echocardiogram with normal LV size, EF 37%, moderate global hypokinesis LV, normal diastole for age, small pericardial effusion, moderate focal AV calcification, stage I diastolic dysfunction, moderate size left pleural effusion. Will judiciously hydrate if necessary given history, continue dialysis regimen as noted, will continue aspirin, Plavix, Coreg, not on ACEI/ARB/diuretic/statin therapy, defer to outpatient. #4. ESRD on HD: Admission BUN/Cr 48/6.63, will consult nephrology and continue patient to normal HD regimen, of note makes urine approximate 3 times daily. #5. Chronic macrocytic anemia/AOCD: Admission hemoglobin 8.9, baseline more recently appears 8-9, stable, continue to trend. #6. Hypertension: Continue home regimen including Coreg, amlodipine with hold parameters as needed, PRN hydralazine. #7. Hyperlipidemia: Per current regimen not on medication, defer to outpatient. #8. Severe protein calorie malnutrition: Patient with chronic significant comorbidities, muscle and fat loss history, will request nutrition consultation for recommendation. #9. History CVA: We will continue aspirin, Plavix, hypertensive regimen, maintain on ADA/renal diet as noted for diet controlled diabetes, not on statin therapy, defer to outpatient. #10. History colon cancer: Patient status post colectomy secondary to underlying colon cancer history and possibly diverticulitis, consider remission. #11. Questionable Hepatitis C: From review of 12/2022 visit with GI per their recommendation will check hepatitis C PCR RNA quant to assure this was not a false positive given no IVDA history. #12. Diabetes mellitus type II: Not on regimen, diet controlled, last hemoglobin A1c noted 05/13/2023 5.9% at that time, will maintain on renal/ADA diet, accu checks w/ ISS. #13. Tobacco Abuse: Encouraged cessation, inpatient consultation per RT, NR if desired. #14. GOKUL: CPAP nightly. #15. DVT prophylaxis: Heparin. #16. CODE status: Full Code per facility paperwork. Charges/Coding Visit Charges Inpatient E&M: 87411 Init Hosp L3
[2023-05-26] MEDS: Vancomycin IV 1,000 MG/200 ML BAG 200 MG IV (23:47)
[2023-05-26] MEDS: HYDROcodone Bitartrate/Apap 5/325 Tablet PO (23:58)
[2023-05-27] VITALS (17 sets, daily range): BP systolic 112–237; BP diastolic 51–90; PULSE 55–72; RESP 12–20; TEMP 36–37; O2SAT 94–100; BMI 21.4; BMI 21.6; BMI 21.0
[2023-05-27] LABS: Magnesium 3.6 mg/dL (1.6-2.6)
--- NOTE | 2023-05-27 00:52 | CPS ---
[[id number]] Pt. politely declined using the hospital's CPAP/BiPAP at this time. Pt. resting comfortably on 3L NC (SpO2=98%), with no signs of distress or discomfort with his breathing.
[2023-05-27] MEDS: 0.9% Normal Saline 1,000 ML 75 ML IV (01:20)
[2023-05-27 03:34] LABS: Probe Check PASS
[2023-05-27 03:36] LABS: M R Staph aureus DNA By PCR POSITIVE (Negative)
[2023-05-27] MEDS: Ammonium Lactate 225 gm Bottle 1 APPLIC TOPICAL ×3 (06:52→21:10)
[2023-05-27] MEDS: Lidocaine 5% Patch 1 PATCH TOPICAL (06:52)
[2023-05-27 07:10] LABS: Absolute Neutrophil Count 10.6 X10^3/uL (2.0-7.7); Basophil# 0.01 X10^3/uL; Basophil% 0.1 % (0-1); Hematocrit 24.4 % (40-54); Hemoglobin 7.9 g/dL (13.0-16.5); Lymphocyte % 6.9 % (19-41); Mean Corp Hgb Conc 32.4 g/dL (32-36); Mean Corpuscular Hgb 34.5 pg (27.0-32.0); Mean Corpuscular Volume 106.6 fL (80-94); Mean Platelet Vol. 11.2 fl (6.2-12.0); Monocyte# 1.39 X10^3/uL; Monocyte% 10.7 % (0-10); NRBC Flagged by Analyzer 0 % (0-5); Neutrophil # 10.57 X10^3/uL (2.7-7.7); Neutrophil % 81.5 % (47-70); Platelet Count 150 K/mm3 (150-450); RBC Distribution Width CV 13.4 % (11.6-14.6); RBC Distribution Width SD 52.1 fl (35.1-43.9); Red Blood Count 2.29 M/mm3 (4.6-6.2)
[2023-05-27 07:14] LABS: Bedside Glucose 146 mg/dL (74-106)
[2023-05-27 07:41] LABS: ALB/GLOB Ratio 0.9 RATIO (0.9-2.4); AST(SGOT) 12 U/L (15-37); Alanine Aminotransfer ALT/SGPT 15 U/L (16-61); Alkaline Phosphatase 77 U/L (45-117); Anion Gap 10 (5-15); BUN 52 mg/dL (7-18); BUN/Creat Ratio 7.7 RATIO (10-20); Calcium,Total 9.2 mg/dL (8.5-10.1); Chloride 93 mmol/L (98-107); Creatinine, Serum 6.72 mg/dL (0.70-1.30); EST Glomerular Filtration Rate 9 mL/min (>60); Est Glom Filt Rate - Afr Amer 10 mL/min (>60); Estimated Creatinine Clearance 8.02 ml/min; Globulin 3.4 g/dL (2.2-4.2); Glucose 162 mg/dL (74-106); Potassium 4.1 mmol/L (3.5-5.1); Protein, Total 6.4 g/dL (6.4-8.2); Sodium Level 132 mmol/L (136-145)
[2023-05-27] MEDS: Heparin Injection (Vial) 5,000 UNIT/ML VIAL 5000 UNIT SC ×2 (08:51→21:10)
[2023-05-27] MEDS: Menthol/Lanolin/Calamine/Znox 113 GM Tube 1 APPLIC TOPICAL ×4 (08:51→21:08)
[2023-05-27] MEDS: Carvedilol 12.5 MG Tablet PO ×2 (08:52→21:09)
[2023-05-27] MEDS: Aspirin E.C. 81 MG Tablet PO (08:52)
[2023-05-27] MEDS: Folic Acid/Vitamin B Comp W-C 1 Capsule 1 CAP PO (08:52)
[2023-05-27] MEDS: Calcium Acetate 667 MG Capsule 1334 MG PO ×3 (08:52→16:14)
[2023-05-27] MEDS: amLODIPine 5 MG Tablet PO ×2 (08:52→21:09)
[2023-05-27] MEDS: Clopidogrel Bisulfate 75 MG Tablet PO (08:53)
--- NOTE | 2023-05-27 09:38 | CASEMGMT ---
Discharge Planning Patient resides at [facility] and wishes to return. Updates sent via fax. Monica Locke, Discharge Planning Asst.
[2023-05-27] MEDS: PureFlow B 2K Dialysis Soln 1 BAG 6 BAG PF (09:53)
[2023-05-27] MEDS: 0.9% Normal Saline 1,000 ML IV.SOLN. 1000 ML OPERA.SITE (09:53)
--- NOTE | 2023-05-27 09:55 | WOUNDNOTE ---
wound photo: left 2nd toe
--- NOTE | 2023-05-27 09:56 | WOUNDNOTE ---
wound photo: left 2nd toe
--- NOTE | 2023-05-27 10:39 | PCM.CONS.R ---
Assessment & Plan Assessment/Plan (1) ESRD (end stage renal disease) on dialysis: (2) Difficulty in walking: (3) Anemia: QUALIFIERS: Anemia type: due to chronic kidney disease Chronic kidney disease stage: on chronic dialysis Qualified Code(s): N18.6 - End stage renal disease; D63.1 - Anemia in chronic kidney disease; Z99.2 - Dependence on renal dialysis PLAN: Plan This is a pleasant 82-year-old male with past medical history significant for ESRD on hemodialysis Saturday who was admitted to the hospital for evaluation after falling at assisted living. Patient is followed by Dr. Hamilton; we are covering for Dr. Hamilton today. Patient dialyzes Saturday. We will continue to provide dialysis support while in hospital, patient will dialyze today and attempting around 2 to 2.5 L fluid removal as patient/blood pressure tolerates. Outpatient EDW is 64 kg. Quite possibly dry weight will be lowered by time of hospital discharge. Patient has history of anemia of chronic disease and received Mircera 75 mcg this past Saturday at hemodialysis. We will monitor hemoglobin trends. Chest x-ray emergency room suspicious for pneumonia and also showed small pleural effusion. Patient is on IV antibiotics, blood cultures pending. Patient had brain CT no acute findings and cervical spine CT with no evidence of cervical trauma. Current blood pressures acceptable on amlodipine. Further orders forthcoming as hospitalization evolves. HPI Consult Data Date of Consult: 05/27/23 HPI Narrative HPI Narrative: ABEL SOLIS, is a 82 M with past medical history significant for ESRD on hemodialysis Saturday at [facility] followed by Dr. Hamilton who was brought to the emergency room for evaluation after patient had fallen at assisted living facility hitting his head. Patient recently had toe amputation and had been residing at assisted living facility. Patient had work-up in the emergency room which included CT of head with no acute findings, chest x-ray suspicious for pneumonia and small pleural effusion. Blood cultures were also drawn in the emergency room and patient was empirically started on IV antibiotics, Zosyn and vancomycin. Nephrology consulted for hemodialysis needs. Patient was seen and examined this morning on hemodialysis. He is alert and oriented but has difficult time recalling recent events. Denies any complaints. [facility] Medical History (Updated 05/27/23 @ 10:46 by Stefania Trzcinski, COBBLER APPRENTICE-C) Anemia Asthma Atrial fibrillation Benign essential HTN Brain aneurysm Chronic renal failure, stage 5 Colon polyps COPD (chronic obstructive pulmonary disease) CVA (cerebral vascular accident) Diabetes Dialysis complication Dialysis patient Fall Febrile illness, acute Fistula Hepatitis C History of GI bleed Hyperlipemia Hyponatremia Leukocytosis LFT elevation Metabolic encephalopathy Multifocal pneumonia NSTEMI, initial episode of care Problem with dialysis access PVD (peripheral vascular disease) Sleep apnea TIA (transient ischemic attack) Tobacco use disorder Troponin level elevated Type II diabetes mellitus, uncontrolled Home Medications mycophenolate mofetil 500 mg tablet 500 mg PO QHS rejection 09/06/20 [History Last Taken 06/29/21] ergocalciferol (vitamin D2) 1,250 mcg (50,000 unit) capsule 1,250 mcg PO QMONTH health maintenance 11/03/20 [History Last Taken 06/14/21] vitamin B complex-vitamin C-folic acid 0.8 mg tablet (Nephro-Lola) 1 tab PO DAILY health maintenance 07/01/21 [History Last Taken 06/29/21 17:00] acetaminophen 325 mg tablet (Tylenol) 650 mg PO Q4H PRN PRN Pain Score 1-10/Temp > 100.7 F 10/10/21 [History Last Taken Unknown] aspirin 81 mg tablet,delayed release 81 mg PO DAILY heart health 10/26/21 [History Last Taken Unknown] fiber 2 cap PO QHS PRN constipation 10/26/21 [History Last Taken Unknown] acetaminophen 650 mg rectal suppository 650 mg OR Q4H PRN pain/fever 02/17/22 [History Last Taken Unknown] aluminum-magnesium hydroxide 225 mg-200 mg/5 mL oral suspension 30 ml PO Q4H PRN PRN Indigestion 02/17/22 [History Last Taken Unknown] ammonium lactate 12 % lotion 1 applic topical TID dry skin 02/17/22 [History Last Taken Unknown] bisacodyl 10 mg rectal suppository 10 mg OR DAILY PRN Constipation 02/17/22 [History Last Taken Unknown] calcium acetate(phosphat bind) 667 mg capsule 1,334 mg PO TID binder 02/17/22 [History Last Taken Unknown] dextrose 40 % oral gel (Glucose Gel) 10 g PO Q15M PRN Hypoglycemia 02/17/22 [History Last Taken Unknown] glucagon 1 mg injection kit 1 mg IM PRN PRN Hypoglycemia 02/17/22 [History Last Taken Unknown] guaifenesin 100 mg/5 mL oral liquid 200 mg PO Q4H PRN Congestion 02/17/22 [History Last Taken Unknown] lidocaine 4 % topical patch 1 patch topical DAILY pain 02/17/22 [History Last Taken Unknown] loperamide 2 mg capsule 2 mg PO Q6H PRN Diarrhea 02/17/22 [History Last Taken Unknown] magnesium hydroxide 400 mg/5 mL oral suspension (Milk of Magnesia) 30 ml PO DAILY PRN Constipation 02/17/22 [History Last Taken Unknown] sodium phosphates 19 gram-7 gram/118 mL enema (Fleet Enema) 118 ml OR DAILY PRN Constipation 02/17/22 [History Last Taken Unknown] triamcinolone acetonide 0.1 % topical cream 1 applic topical BID PRN psoriasis 02/17/22 [History Last Taken Unknown] amlodipine 5 mg tablet 5 mg PO BID blood pressure 05/26/23 [History Last Taken Unknown] carvedilol 3.125 mg tablet 12.5 mg PO BID heart health 05/26/23 [History Last Taken Unknown] clopidogrel 75 mg tablet (Plavix) 75 mg PO DAILY antiplatelet 05/26/23 [History Last Taken Unknown] doxycycline hyclate 100 mg capsule 100 mg PO BID antibiotic 05/26/23 [History Last Taken Unknown] hydrocodone-acetaminophen 5-325mg 5mg-325mg 1 tab PO Q6H PRN pain 05/26/23 [History Last Taken Unknown] loperamide 2 mg capsule (Anti-Diarrheal (loperamide)) 2 mg PO MOTUWEFR dialysis 05/27/23 [History Last Taken Unknown] naproxen 500 mg tablet 500 mg PO DAILY PRN pain 05/27/23 [History Last Taken Unknown] Allergy/AdvReac Type Severity Reaction Status Date / Time varenicline tartrate Allergy makes me Verified 05/26/23 21:52 [From Chanchristina] loyd oseguera Family History Mother CVA (cerebral vascular accident) Diabetes Hypertension Father Colon cancer Diabetes Brother Diabetes Surgical History history insertion dialysis catheter (~11/04/20) History of cataract extraction History of colectomy History of colonoscopy (~06/2020) History of surgery on left wrist History of vein stripping Social History (Updated 05/26/23 @ 23:[address] Emily Weeks MD) housing: skilled nursing Smoking Status: Current every day smoker tobacco type: cigarettes alcohol intake: never substance use type: does not use ROS ROS Narrative As in past medical history and HPI Physical Exam Narrative Alert and oriented, no apparent distress S1, S2, RRR Lung sounds diminished with faint rhonchi Abdomen soft, nontender No edema Left upper arm AV fistula accessed for hemodialysis Lab / Micro Data 05/27/23 06:26 05/27/23 06:26 Labs: Laboratory Results - last 24 hr 05/26/23 22:20: WBC 13.3 H, RBC 2.64 L, Hgb 8.9 L, Hct 28.2 L, MCV 106.8 H, MCH 33.7 H, MCHC 31.6 L, RDW Std Deviation 52.5 H, RDW Coeff of Mihaela 13.4, Plt Count 165, MPV 11.0, Immature Gran % (Auto) 1.400 H, Neut % (Auto) 85.0 H, Lymph % (Auto) 4.3 L, [place] % (Auto) 9.1, Eos % (Auto) 0.0, Baso % (Auto) 0.2, Absolute Neuts (auto) 11.3 H, Absolute Lymphs (auto) 0.57 L, Nucleated RBC % 0, Differential Comment SCANNED, Sodium 131 L, Potassium 4.4, Chloride 91 L, Carbon Dioxide 29.0, Anion Gap 11, BUN 48 H, Creatinine 6.63 H, Estim Creat Clear Calc 8.33, Est GFR (MDRD) Af Amer 10 L, Est GFR (MDRD) Non-Af 9 L, BUN/Creatinine Ratio 7.2 L, Glucose 204 H, Calcium 10.2 H 05/26/23 22:28: Magnesium 3.6 H 05/27/23 01:25: MRSA (PCR) POSITIVE H 05/27/23 06:26: WBC 13.0 H, RBC 2.29 L, Hgb 7.9 L, Hct 24.4 L, MCV 106.6 H, MCH 34.5 H, MCHC 32.4, RDW Std Deviation 52.1 H, RDW Coeff of Mihaela 13.4, Plt Count 150, MPV 11.2, Immature Gran % (Auto) 0.800, Neut % (Auto) 81.5 H, Lymph % (Auto) 6.9 L, [place] % (Auto) 10.7 H, Eos % (Auto) 0.0, Baso % (Auto) 0.1, Absolute Neuts (auto) 10.6 H, Absolute Lymphs (auto) 0.90, Nucleated RBC % 0, Sodium 132 L, Potassium 4.1, Chloride 93 L, Carbon Dioxide 29.0, Anion Gap 10, BUN 52 H, Creatinine 6.72 H, Estim Creat Clear Calc 8.02, Est GFR (MDRD) Af Amer 10 L, Est GFR (MDRD) Non-Af 9 L, BUN/Creatinine Ratio 7.7 L, Glucose 162 H, Calcium 9.2, Total Bilirubin 0.70, AST 12 L, ALT 15 L, Alkaline Phosphatase 77, Total Protein 6.4, Albumin 3.0 L, Globulin 3.4, Albumin/Globulin Ratio 0.9 05/27/23 06:49: POC Glucose 146 H Micro: Microbiology 05/26/23 23:55 Mucosa - Nasopharyngeal Coronavirus COVID-19 PCR - Final 05/26/23 23:55 Mucosa - Nasopharyngeal Respiratory Panel (PCR) - Final Radiology Impression Brain CT 05/26/23 22:10 IMPRESSION: No acute findings. Microvascular ischemia. Atrophy. Electronically Signed: Antonieta Castillo MD at 22:50 EDT Reading Location ID and State: [place] MD Tel , Service support , Cervical Spine CT 05/26/23 22:10 IMPRESSION: No evidence of cervical trauma. Moderate C5-6 canal stenosis. Mild stenosis at C3-4. Multilevel listhesis. Degenerative changes detailed above. Electronically Signed: Antonieta Castillo MD at 23:12 EDT Reading Location ID and State: [place] MD Tel , Service support , Chest X-Ray 05/26/23 22:43 IMPRESSION: Hazy pulmonary opacities suspicious for pneumonia. Small pleural effusion. Electronically Signed: Antonieta Castillo MD at 23:14 EDT Reading Location ID and State: [id number] / Tel , Service support ,
--- NOTE | 2023-05-27 11:19 | PCM.RX.CS ---
Consult Antibiotic Management Pharmacy has been consulted to manage selected antiobiotic: Vancomycin Type of Intervention Type of Consult: New start Suspected Infection Suspected Infection: Pneumonia Labs Labs: Sodium 132 mmol/L (136-145) L 05/27/23 06:26 Potassium 4.1 mmol/L (3.5-5.1) 05/27/23 06:26 Chloride 93 mmol/L (98-107) L 05/27/23 06:26 Carbon Dioxide 29.0 mmol/L (21.0-32.0) 05/27/23 06:26 Anion Gap 10 (5-15) 05/27/23 06:26 BUN 52 mg/dL (7-18) H 05/27/23 06:26 Creatinine 6.72 mg/dL (0.70-1.30) H 05/27/23 06:26 Est GFR (MDRD) Af Amer 10 mL/min (>60) L 05/27/23 06:26 Est GFR (MDRD) Non-Af 9 mL/min (>60) L 05/27/23 06:26 BUN/Creatinine Ratio 7.7 RATIO (10-20) L 05/27/23 06:26 Glucose 162 mg/dL (74-106) H 05/27/23 06:26 Microbiology Microbiology: Microbiology 05/26/23 23:55 Mucosa - Nasopharyngeal Coronavirus COVID-19 PCR - Final 05/26/23 23:55 Mucosa - Nasopharyngeal Respiratory Panel (PCR) - Final Goal Trough Goal Trough: 15-20 mcg/mL Pharmacy Plan for Drug Dosing Pharmacy Plan for Drug Dosing: NEW START IV VANCOMYCIN Consulting Physician: Dr. Weeks Indication: R/O PNA Goal Trough: 15-20 SrCr: HD CrCl: Gets HD M/W/F at home- per nephrology, will continue normal home HD schedule here Comments: Patient had 1st initial dose of vancomycin 1000mg IV x1 05/26/23 @2347 Vancomycin Dose: Per nephrology consultation, patient will get HD today. Will give a 500mg x1 dose post-HD today per protocol. Will subsequently dose based off pre-HD levels after dose today. Pending Level: *RANDOM* pre-HD level 05/29/23 w/ AM labs Pharmacy Service will continue to monitor and adjust dosing as required.
[2023-05-27] MEDS: Insulin Lispro 100 UNIT/ML INSULN.PEN SC ×3 (11:44→21:16)
[2023-05-27 12:08] LABS: Bedside Glucose 179 mg/dL (74-106)
--- NOTE | 2023-05-27 12:33 | CASEMGMT ---
Discharge Planning [facility] would like patient to have SNF stay prior to returning to [place]. Patient is agreeable to SNF referral being sent to [facility]. Referral sent to [facility] via [facility]. Monica Locke, Discharge Planning Asst.
--- NOTE | 2023-05-27 16:25 | PCM.PN.HOSP ---
Reason for Visit Reason for Visit: Diagnoses Pneumonia, unspecified organism (05/26/23) Subjective Subjective Patient was seen and examined today, he is undergoing dialysis today. Patient was admitted for hypoxia and generalized weakness from his assisted living facility. We received word today that the assisted living facility does not want to take the patient back unless he undergoes skilled care. I brought this up with the patient earlier this morning and he stated that if he had to go somewhere for rehab services he would consent to it. Patient is currently on 2 L via nasal cannula at this time. Objective Data Objective Data Vital Signs: Vital Signs Temp Pulse Resp BP Pulse Ox O2 Del Method O2 Flow Rate 98.4 F 67 16 132/76 H 95 Nasal Cannula 2 05/27/23 14:00 05/27/23 14:00 05/27/23 14:00 05/27/23 14:00 05/27/23 14:00 05/27/23 14:00 05/27/23 15:08 Oxygen Flow Rate (L/min) 2 Oxygen Delivery Method Nasal Cannula Weight: 63 kg Body Mass Index (BMI) 21.0 Intake & Output: Intake and Output for Last 24 Hours 05/25/23 05/26/23 05/27/23 23:59 23:59 23:59 Intake Total 1450 / 1450 Output Total 1750 / 1750 Balance -300 / -300 Lab / Micro Data 05/27/23 06:26 05/27/23 06:26 Labs: Laboratory Results - last 24 hr 05/26/23 22:20: WBC 13.3 H, RBC 2.64 L, Hgb 8.9 L, Hct 28.2 L, MCV 106.8 H, MCH 33.7 H, MCHC 31.6 L, RDW Std Deviation 52.5 H, RDW Coeff of Mihaela 13.4, Plt Count 165, MPV 11.0, Immature Gran % (Auto) 1.400 H, Neut % (Auto) 85.0 H, Lymph % (Auto) 4.3 L, [place] % (Auto) 9.1, Eos % (Auto) 0.0, Baso % (Auto) 0.2, Absolute Neuts (auto) 11.3 H, Absolute Lymphs (auto) 0.57 L, Nucleated RBC % 0, Differential Comment SCANNED, Sodium 131 L, Potassium 4.4, Chloride 91 L, Carbon Dioxide 29.0, Anion Gap 11, BUN 48 H, Creatinine 6.63 H, Estim Creat Clear Calc 8.33, Est GFR (MDRD) Af Amer 10 L, Est GFR (MDRD) Non-Af 9 L, BUN/Creatinine Ratio 7.2 L, Glucose 204 H, Calcium 10.2 H 05/26/23 22:28: Magnesium 3.6 H 05/27/23 01:25: MRSA (PCR) POSITIVE H 05/27/23 06:26: WBC 13.0 H, RBC 2.29 L, Hgb 7.9 L, Hct 24.4 L, MCV 106.6 H, MCH 34.5 H, MCHC 32.4, RDW Std Deviation 52.1 H, RDW Coeff of Mihaela 13.4, Plt Count 150, MPV 11.2, Immature Gran % (Auto) 0.800, Neut % (Auto) 81.5 H, Lymph % (Auto) 6.9 L, [place] % (Auto) 10.7 H, Eos % (Auto) 0.0, Baso % (Auto) 0.1, Absolute Neuts (auto) 10.6 H, Absolute Lymphs (auto) 0.90, Nucleated RBC % 0, Sodium 132 L, Potassium 4.1, Chloride 93 L, Carbon Dioxide 29.0, Anion Gap 10, BUN 52 H, Creatinine 6.72 H, Estim Creat Clear Calc 8.02, Est GFR (MDRD) Af Amer 10 L, Est GFR (MDRD) Non-Af 9 L, BUN/Creatinine Ratio 7.7 L, Glucose 162 H, Calcium 9.2, Total Bilirubin 0.70, AST 12 L, ALT 15 L, Alkaline Phosphatase 77, Total Protein 6.4, Albumin 3.0 L, Globulin 3.4, Albumin/Globulin Ratio 0.9 05/27/23 06:49: POC Glucose 146 H 05/27/23 11:41: POC Glucose 179 H Micro: Microbiology 05/26/23 23:55 Mucosa - Nasopharyngeal Coronavirus COVID-19 PCR - Final 05/26/23 23:55 Mucosa - Nasopharyngeal Respiratory Panel (PCR) - Final Radiography Diagnostic Testing: Radiology Impression Brain CT 05/26/23 22:10 IMPRESSION: No acute findings. Microvascular ischemia. Atrophy. Electronically Signed: Antonieta Castillo MD at 22:50 EDT Reading Location ID and State: [place] / Tel , Service support , Cervical Spine CT 05/26/23 22:10 IMPRESSION: No evidence of cervical trauma. Moderate C5-6 canal stenosis. Mild stenosis at C3-4. Multilevel listhesis. Degenerative changes detailed above. Electronically Signed: Antonieta Castillo MD at 23:12 EDT Reading Location ID and State: [place] / Tel , Service support , Chest X-Ray 05/26/23 22:43 IMPRESSION: Hazy pulmonary opacities suspicious for pneumonia. Small pleural effusion. Electronically Signed: Antonieta Castillo MD at 23:14 EDT Reading Location ID and State: [place] / Tel , Service support , Physical Exam Const alert and no apparent distress Constitutional Narrative: Patient appears frail and older than his stated age General Appearance: cooperative, well kempt and well developed Orientation / Consciousness: awake, oriented to person, oriented to place and oriented to time HEENT normocephalic, head/scalp atraumatic and moist oral mucous membranes Eyes PERRL, EOMs intact bilaterally and conjunctivae normal Neck supple, no JVD, thyroid normal and no carotid bruits General: trachea midline Resp normal respiratory effort, no retractions and no use of accessory muscles Resp Narrative: Breath sounds are distant bilaterally Auscultation: Negative for rales, rhonchi or wheezes Cardio regular rate, regular rhythm, S1 normal heart sound, S2 normal heart sound, no murmurs, no rub and no gallops GI normal to inspection, nondistended, normoactive bowel sounds, soft to palpation, non-tender and non-distended Extremity Extremity Narrative: Left foot is bandaged with surgical dressing, this was not removed for examination of the patient's recent second toe amputation Neuro oriented x3, CN's II-XII intact bilaterally, moves all extremities, no focal motor deficits and no sensory deficits noted Sensorium / Orientation: awake, alert, oriented to person and oriented to place Speech: speech normal Psych affect normal Assessment & Plan Assessment/Plan (1) Hypoxia: PLAN: Plan 1. Bilateral pneumonia-suspected to be bacterial in nature, patient will remain on Zosyn, I have elected to take the patient on vancomycin at this time, labs will be monitored #2 hypoxia-secondary to #1-pulse ox will be monitored, oxygen will be weaned if possible #3 end-stage renal disease requiring hemodialysis-patient was dialyzed today #4 recent left second toe amputation-wound care is seeing patient presently #5 acute debility-PT and OT are seeing patient, again he will need at least temporary placement in a intermediate facility rather than go back to assisted living at this time. #6 anemia of chronic renal disease-patient is labs will be monitored #7 type 2 diabetes-blood sugars will be monitored, sliding scale insulin will be used if needed #8 essential hypertension-patient will remain on his present medication #9 cerebrovascular disease-patient will remain on the present medication #10 cardiomyopathy-exact etiology unclear, complicates care, medical course, recovery, and prognosis Total clinical time spent by myself addressing the patient's medical issues, reviewing all of his data, and collaborating with patient's care team: 50 minutes Charges/Coding Visit Charges Inpatient E&M: 96635 Subs Hosp L3
[2023-05-27 16:33] LABS: Bedside Glucose 157 mg/dL (74-106)
[2023-05-27] MEDS: Nepro Liquid 120 ML LIQUID PO ×2 (17:06→21:27)
[2023-05-27 20:56] LABS: Bacteria 0 SEEN /hpf (None Seen); Mucous, Urine 0 SEEN /hpf (<or=2+); Squamous Epithelial Cells - UA 0 SEEN /hpf (0-5)
[2023-05-27 21:02] LABS: Color, Urine Yellow (Yellow); Glucose, Dipstick Normal (Normal); Ketone-Dipstick Negative (Negative); Leukocyte Esterase-Dipstick Negative /ul (Negative); Nitrite-Dipstick Negative (Negative); Occult Blood-Urine 25 /ul (Negative); Protein-Dipstick 100 mg/dl (Negative); Urine Bilirubin Dipstick Negative (Negative); Urine Clarity Clear (Clear); Urine Urobilinogen Normal (Normal)
[2023-05-27 21:13] LABS: Red Blood Cells-Urine 0-5 SEEN /hpf (0-5); White Blood Cells 0-5 SEEN /hpf (0-5)
[2023-05-27] MEDS: Acetaminophen 325 MG Tablet 650 MG PO (21:16)
[2023-05-27 21:52] LABS: Bedside Glucose 189 mg/dL (74-106)
[2023-05-28 02:00] VITALS: BP 149/54; PULSE 55; RESP 16; TEMP 36.8; O2SAT 95
[2023-05-28 04:21] VITALS: BMI 21.6
[2023-05-28] MEDS: Ammonium Lactate 225 gm Bottle 1 APPLIC TOPICAL ×3 (05:41→21:21)
[2023-05-28] MEDS: 0.9% Saline Lock 10 ML Syringe IV ×2 (05:41→21:27)
[2023-05-28] MEDS: Acetaminophen 325 MG Tablet 650 MG PO (06:56)
[2023-05-28 07:19] LABS: Bedside Glucose 144 mg/dL (74-106)
[2023-05-28 08:00] VITALS: BP 142/54; PULSE 84; RESP 18; TEMP 37; O2SAT 95
[2023-05-28] MEDS: Calcium Acetate 667 MG Capsule 1334 MG PO ×3 (08:36→16:12)
[2023-05-28] MEDS: Menthol/Lanolin/Calamine/Znox 113 GM Tube 1 APPLIC TOPICAL ×4 (08:36→21:21)
[2023-05-28] MEDS: Carvedilol 12.5 MG Tablet PO ×2 (08:36→21:21)
[2023-05-28] MEDS: Folic Acid/Vitamin B Comp W-C 1 Capsule 1 CAP PO (08:36)
[2023-05-28] MEDS: Lidocaine 5% Patch 1 PATCH TOPICAL (08:37)
[2023-05-28] MEDS: Nepro Liquid 120 ML LIQUID PO ×4 (08:37→21:21)
[2023-05-28] MEDS: Aspirin E.C. 81 MG Tablet PO (08:37)
[2023-05-28] MEDS: Heparin Injection (Vial) 5,000 UNIT/ML VIAL 5000 UNIT SC ×2 (08:37→21:22)
[2023-05-28] MEDS: Clopidogrel Bisulfate 75 MG Tablet PO (08:38)
[2023-05-28] MEDS: amLODIPine 5 MG Tablet PO ×2 (08:38→21:21)
--- NOTE | 2023-05-28 11:07 | CASEMGMT ---
Discharge Planning Requested updates for pre-cert sent to [facility] via [employer]. Monica Lokce, Discharge Planning Asst.
[2023-05-28] MEDS: Insulin Lispro 100 UNIT/ML INSULN.PEN SC ×3 (11:18→21:20)
[2023-05-28 11:39] LABS: Bedside Glucose 263 mg/dL (74-106)
[2023-05-28 14:00] VITALS: BP 140/62; PULSE 73; RESP 18; TEMP 36.8; O2SAT 94
--- NOTE | 2023-05-28 15:50 | PN.HOSP_ITS ---
Reason for Visit Reason for Visit: Diagnoses Pneumonia, unspecified organism (05/26/23) Hypoxemia (05/26/23) Subjective Subjective Patient was seen and examined today, he remains on 2 L of oxygen via nasal cannula. Patient's blood culture preliminary report was positive for gram- negative rods, patient has been accepted to a nursing facility, I have decided at this time to repeat the patient's CBC tomorrow and make sure he is medically stable before transporting him to an extended care facility. Patient will have dialysis again tomorrow. Patient remains afebrile at this time and does not look unwell. Objective Data Objective Data Vital Signs: Vital Signs Temp Pulse Resp BP Pulse Ox O2 Del Method O2 Flow Rate 98.3 F 73 18 140/62 H 94 Nasal Cannula 2 05/28/23 14:00 05/28/23 14:00 05/28/23 14:00 05/28/23 14:00 05/28/23 14:00 05/28/23 14:00 05/28/23 14:00 Oxygen Flow Rate (L/min) 2 Oxygen Delivery Method Nasal Cannula Weight: 64.7 kg Body Mass Index (BMI) 21.6 Intake & Output: Intake and Output for Last 24 Hours 05/26/23 05/27/23 05/28/23 23:59 23:59 23:59 Intake Total 1750 / 2050 950 / 950 Output Total 1750 / 1750 Balance 0 / 300 950 / 950 Lab / Micro Data 05/27/23 06:26 05/27/23 06:26 Labs: Laboratory Results - last 24 hr 05/26/23 20:45: Urine Color Yellow, Urine Clarity Clear, Urine pH 8.0, Ur Specific [place] 1.010, Urine Protein 100 H, Urine Glucose (UA) Normal, Urine Ketones Negative, Urine Occult Blood 25 H, Urine Nitrite Negative, Urine Bilirubin Negative, Urine Urobilinogen Normal, Ur Leukocyte Esterase Negative, Urine RBC 0-5 SEEN, Urine WBC 0-5 SEEN, Ur Squamous Epith Cells 0 SEEN, Urine Bacteria 0 SEEN, Urine Mucus 0 SEEN 05/27/23 16:12: POC Glucose 157 H 05/27/23 21:15: POC Glucose 189 H 05/28/23 06:55: POC Glucose 144 H 05/28/23 11:16: POC Glucose 263 H Micro: Microbiology 05/26/23 23:41 Blood Culture (Wb) - Right Hand Blood Culture - Preliminary 05/27/23 20:45 Urine, Clean Catch Streptococcus pneumoniae Antigen (M - Final 05/27/23 20:45 Urine, Clean Catch Legionella Antigen - Final 05/26/23 23:55 Mucosa - Nasopharyngeal Coronavirus COVID-19 PCR - Final 05/26/23 23:55 Mucosa - Nasopharyngeal Respiratory Panel (PCR) - Final Physical Exam Narrative alert and no apparent distress Constitutional Narrative: Patient appears frail and older than his stated age General Appearance: cooperative, well kempt and well developed Orientation / Consciousness: awake, oriented to person, oriented to place and oriented to time HEENT normocephalic, head/scalp atraumatic and moist oral mucous membranes Eyes PERRL, EOMs intact bilaterally and conjunctivae normal Neck supple, no JVD, thyroid normal and no carotid bruits General: trachea midline Resp normal respiratory effort, no retractions and no use of accessory muscles Resp Narrative: Breath sounds are distant bilaterally Auscultation: Negative for rales, rhonchi or wheezes Cardio regular rate, regular rhythm, S1 normal heart sound, S2 normal heart sound, no murmurs, no rub and no gallops GI normal to inspection, nondistended, normoactive bowel sounds, soft to palpation, non-tender and non-distended Extremity Extremity Narrative: Left foot is bandaged with surgical dressing, this was not removed for examination of the patient's recent second toe amputation Neuro oriented x3, CN's II-XII intact bilaterally, moves all extremities, no focal motor deficits and no sensory deficits noted Sensorium / Orientation: awake, alert, oriented to person and oriented to place Speech: speech normal Psych affect normal Assessment & Plan Assessment/Plan (1) HCAP (healthcare-associated pneumonia): (2) Hypoxia: PLAN: Plan 1. Bilateral pneumonia-suspected to be bacterial in nature, patient will remain on Zosyn, patient's CBC will be repeated tomorrow, it appears that he has a bacteremia with gram-negative rods, I will reassess the patient tomorrow for discharge to an extended care facility. #2 hypoxia-secondary to #1-pulse ox will be monitored, oxygen will be weaned if possible #3 end-stage renal disease requiring hemodialysis-patient will be dialyzed tomorrow #4 recent left second toe amputation-wound care is seeing patient presently, the wound care nurse states that the toe wound appears noninfected and healing adequately. #5 acute debility-PT and OT are seeing patient, patient has been accepted at a [facility] facility, I will assess him tomorrow for possible transfer to a fdc facility. #6 anemia of chronic renal disease-patient is labs will be monitored #7 type 2 diabetes-blood sugars will be monitored, sliding scale insulin will be used if needed #8 essential hypertension-patient will remain on his present medication #9 cerebrovascular disease-patient will remain on the present medication #10 cardiomyopathy-exact etiology unclear, complicates care, medical course, rec overy, and prognosis Total clinical time spent by myself addressing the patient's medical issues, r eviewing all of his data, and collaborating with patient's care team: 35 minutes Charges/Coding Visit Charges Inpatient E&M: 72116 Subs Hosp L2
[2023-05-28 16:38] LABS: Bedside Glucose 208 mg/dL (74-106)
[2023-05-28 19:55] VITALS: O2SAT 94
[2023-05-28 20:00] VITALS: BP 160/63; PULSE 60; RESP 18; TEMP 37.2; O2SAT 96
[2023-05-28 20:07] LABS: HCV Quant. RNA PCR HCV Not Detected IU/mL (.)
[2023-05-28 22:35] LABS: Bedside Glucose 153 mg/dL (74-106)
[2023-05-29] VITALS (14 sets, daily range): BP systolic 151–213; BP diastolic 52–81; PULSE 59–87; RESP 16–20; TEMP 36.1–36.9; O2SAT 92–100; BMI 21.5; BMI 22.5; BMI 21.9
[2023-05-29] MEDS: Ammonium Lactate 225 gm Bottle 1 APPLIC TOPICAL ×2 (06:24→14:19)
[2023-05-29 07:08] LABS: Bedside Glucose 141 mg/dL (74-106)
[2023-05-29] MEDS: 0.9% Normal Saline 1,000 ML IV.SOLN. 1000 ML OPERA.SITE (08:30)
[2023-05-29] MEDS: PureFlow B 2K Dialysis Soln 1 BAG 6 BAG PF (08:30)
[2023-05-29 08:37] LABS: Absolute Lymphocyte Count 0.89 X10^3/uL (0.83-4.51); Absolute Neutrophil Count 7.9 X10^3/uL (2.0-7.7); Basophil# 0.04 X10^3/uL; Basophil% 0.4 % (0-1); Eosinophil# 0.04 X10^3/uL; Eosinophils% 0.4 % (0-5); Hematocrit 25.4 % (40-54); Hemoglobin 8.4 g/dL (13.0-16.5); Lymphocyte # 0.89 X10^3/ul (0.83-4.51); Lymphocyte % 9.1 % (19-41); Mean Corp Hgb Conc 33.1 g/dL (32-36); Mean Corpuscular Hgb 34.4 pg (27.0-32.0); Mean Corpuscular Volume 104.1 fL (80-94); Mean Platelet Vol. 10.6 fl (6.2-12.0); Monocyte# 0.88 X10^3/uL; NRBC Flagged by Analyzer 0.3 % (0-5); Neutrophil # 7.89 X10^3/uL (2.7-7.7); Neutrophil % 80.2 % (47-70); Platelet Count 166 K/mm3 (150-450); RBC Distribution Width CV 13.3 % (11.6-14.6); RBC Distribution Width SD 51.2 fl (35.1-43.9); Red Blood Count 2.44 M/mm3 (4.6-6.2); White Blood Count 9.8 K/mm3 (4.4-11.0)
[2023-05-29 11:25] LABS: Bedside Glucose 134 mg/dL (74-106)
--- NOTE | 2023-05-29 11:49 | TREXTCAR_ITS ---
Diet Diet Order/Speech Therapy: 05/27/23 00:28 Diet: Consistent Carb - Calorie Controlled Food consistency:: Regular Liquid Consistency:: Regular/Thin How many daily calories?: 1800 calorie Diet: Renal - General Food consistency:: Regular Liquid Consistency:: Regular/Thin Routine Orders/Code Status O2 Liters per Minute: 2 O2 Frequency: Continuous Routine Lab Work: - (Fingerstick blood sugars fasting and 4 PM daily, notify attending if blood sugars under 80 or over 160) Code Status: Full Code Wound(s) rt calf: Wound Type: Skin Tear Rt knee: Wound Type: Skin Tear Rt forehead: Wound Type: Skin Tear Generalized: Wound Type: Abrasion Lt 2nd toe: Wound Type: surgical incision s/p L 2nd toe amputation Dressing Change: betadine with dry dressing left calf: Wound Type: Abrasion Therapies Weight Bearing: Full weight bearing Physical Therapy: Eval and Treat Occupational Therapy: Eval and Treat Speech Therapy: Eval and Treat Problem/Diagnosis (1) HCAP (healthcare-associated pneumonia): Status: Acute Code(s): J18.9 - Pneumonia, unspecified organism (2) Hypoxia: Status: Acute Code(s): R09.02 - Hypoxemia Plan 1. Bilateral pneumonia-suspected to be bacterial in nature, blood culture is growing out a slow-growing gram-negative organism, will transition the patient to Levaquin at discharge #2 hypoxia-secondary to #1-pulse ox will be monitored, oxygen will be weaned if possible #3 end-stage renal disease requiring hemodialysis #4 recent left second toe amputation-wound care is seeing patient presently, the wound care nurse states that the toe wound appears noninfected and healing adequately. #5 acute debility-PT and OT are seeing patient, patient has been accepted at a detention facility, I will assess him tomorrow for possible transfer to a detention facility. #6 anemia of chronic renal disease-patient is labs will be monitored #7 type 2 diabetes-blood sugars will be monitored, sliding scale insulin will be used if needed #8 essential hypertension-patient will remain on his present medication #9 cerebrovascular disease-patient will remain on the present medication #10 cardiomyopathy-exact etiology unclear, complicates care, medical course, recovery, and prognosis #11 cognitive impairment-exact etiology unclear, possibly secondary to dementia versus encephalopathy from bilateral pneumonia Total clinical time spent by myself addressing the patient's medical issues, reviewing all of his data, and collaborating with patient's care team: 35 minutes Allergies/Procedures Done in Hospital Allergies varenicline tartrate [From Chantix] Allergy (Verified 05/26/23 21:52) makes me ana rosa, loyd Procedures: Dialysis Type of Care/Length of Stay Estimated LOS: Convalescent Care Less Than 30 days Type of Care Needed: Skilled Rehab Potential: Fair Prognosis: Fair Additional Orders/Day of Discharge H&P will serve as current which was dated: 05/26/23 Day of Discharge: 05/29/23 Dietary and Speech Recommendations Dietitian Recommendations/Changes: Continue ONS 4x/day as ordered Continue therapeutic diet as ordered Available if diet education desired. Discharge Plan Admission Admit Date/Time: 05/26/23 23:33 Primary Reason for Your Visit: Bilateral pneumonia, hypoxia, debility Attending Provider: Steven Reyes Primary Care Provider: Fay Diaz Consulting Providers: Emily Weeks; Marck Segura Discharge Orders/Prescriptions Prescriptions: New Nepro Carb Steady 0.08 gram-1.8 kcal/mL Liquid 120 ml PO 4X/DAY Qty: 0 0RF levofloxacin 500 mg tablet 500 mg PO UD Qty: 3 0RF Rx Instructions: Take 1 every 48 hours starting 05/31/2023-total of 3 doses to be given Continued ergocalciferol (vitamin D2) 1,250 mcg (50,000 unit) capsule 1,250 mcg PO QMONTH Rx Instructions: takes on the aspirin 81 mg tablet,delayed release (DR/EC) 81 mg PO DAILY Nephro-Lola 0.8 mg tablet 1 tab PO DAILY Patient Comments: TAKE 1 TABLET BY MOUTH EVERY DAY acetaminophen [Tylenol] 325 mg tablet 650 mg PO Q4H PRN PRN (Reason: Pain Score 1-10/Temp > 100.7 F) ammonium lactate 12 % Lotion 1 applic TOPICAL TID loperamide 2 mg Capsule 2 mg PO Q6H PRN (Reason: Diarrhea) triamcinolone acetonide 0.1 % Cream 1 applic TOPICAL BID PRN (Reason: psoriasis) bisacodyl 10 mg Suppository 10 mg PA DAILY PRN (Reason: Constipation) calcium acetate(phosphat bind) 667 mg Capsule 1,334 mg PO TID amlodipine 5 mg tablet 5 mg PO BID clopidogrel [Plavix] 75 mg tablet 75 mg PO DAILY carvedilol 3.125 mg Tablet 12.5 mg PO BID Discontinued fiber Capsule 2 cap PO QHS PRN (Reason: constipation) mycophenolate mofetil 500 MG tablet 500 mg PO QHS Glucagon Emergency Kit 1 mg Kit 1 mg IM PRN PRN (Reason: Hypoglycemia) acetaminophen 650 mg Suppository 650 mg PA Q4H PRN (Reason: pain/fever) lidocaine 4 % Adhesive Patch,Medicated 1 patch TOPICAL DAILY Patient Comments: apply to rt groin dextrose [Glucose Gel] 40 % Gel 10 g PO Q15M PRN (Reason: Hypoglycemia) guaifenesin 100 mg/5 mL Liquid 200 mg PO Q4H PRN (Reason: Congestion) magnesium hydroxide [Milk of Magnesia] 400 mg/5 mL Suspension 30 ml PO DAILY PRN (Reason: Constipation) Antacid 225-200 mg/5 mL Suspension 30 ml PO Q4H PRN PRN (Reason: Indigestion) Fleet Enema 19-7 gram/118 mL Enema 118 ml PA DAILY PRN (Reason: Constipation) doxycycline hyclate 100 mg capsule 100 mg PO BID hydrocodone-acetaminophen 5-325 mg tablet 1 tab PO Q6H PRN (Reason: pain) loperamide [Anti-Diarrheal (loperamide)] 2 mg capsule 2 mg PO MOTUWEFR Patient Comments: give in the morning mon, tue, wed, fri related to Dependance on Renal dialysis Give prior to dialysis naproxen 500 mg tablet 500 mg PO DAILY PRN (Reason: pain) Referrals / Follow Up: Fay Diaz MD [Primary Care Provider] - Disposition Disposition (needs filled in before D/C Order can be placed): [facility]
[2023-05-29] MEDS: 0.9% Saline Lock 10 ML Syringe IV (11:55)
[2023-05-29] MEDS: Aspirin E.C. 81 MG Tablet PO (12:11)
[2023-05-29] MEDS: Clopidogrel Bisulfate 75 MG Tablet PO (12:11)
[2023-05-29] MEDS: amLODIPine 5 MG Tablet PO (12:11)
[2023-05-29] MEDS: Menthol/Lanolin/Calamine/Znox 113 GM Tube 1 APPLIC TOPICAL (12:11)
[2023-05-29] MEDS: Carvedilol 12.5 MG Tablet PO (12:12)
[2023-05-29] MEDS: Folic Acid/Vitamin B Comp W-C 1 Capsule 1 CAP PO (12:12)
[2023-05-29] MEDS: Calcium Acetate 667 MG Capsule 1334 MG PO (12:12)
[2023-05-29] MEDS: Heparin Injection (Vial) 5,000 UNIT/ML VIAL 5000 UNIT SC (12:15)
[2023-05-29] MEDS: Nepro Liquid 120 ML LIQUID PO ×2 (12:19→14:19)
--- NOTE | 2023-05-29 13:01 | DS.PCM_ITS ---
Providers Date of Admission: 05/26/23 Date of Discharge: 05/29/23 Primary Care Physician: Dr. Fay Diaz MD Consultations 05/27/23 00:28 Consult: Onc/Wound/metrologist Routine Comment: Reason for Consult:: Recent toe amp 05/27/23 07:00 Consult: Nephrology Routine Consulting Provider: Marck Segura Reason for Consult: ESRD on HD EMERGENT Consult: No MD Notified: Yes Date Notified: 05/27/23 Time Notified: 08:15 Method of Notification: Text Reason For Visit: HYPOXIA, PNA, FALLS, ENCEPHALOPATHY Diagnosis Discharge Diagnosis (1) HCAP (healthcare-associated pneumonia): Status: Acute Code(s): J18.9 - Pneumonia, unspecified organism (2) Hypoxia: Status: Acute Code(s): R09.02 - Hypoxemia Plan 1. Bilateral pneumonia-suspected to be bacterial in nature, blood culture is growing out a slow-growing gram-negative organism, will transition the patient to Levaquin at discharge #2 hypoxia-secondary to #1-pulse ox will be monitored, oxygen will be weaned if possible #3 end-stage renal disease requiring hemodialysis #4 recent left second toe amputation-wound care is seeing patient presently, the wound care nurse states that the toe wound appears noninfected and healing adequately. #5 acute debility-PT and OT are seeing patient, patient has been accepted at a senior living facility, I will assess him tomorrow for possible transfer to a senior living facility. #6 anemia of chronic renal disease-patient is labs will be monitored #7 type 2 diabetes-blood sugars will be monitored, sliding scale insulin will be used if needed #8 essential hypertension-patient will remain on his present medication #9 cerebrovascular disease-patient will remain on the present medication #10 cardiomyopathy-exact etiology unclear, complicates care, medical course, recovery, and prognosis #11 cognitive impairment-exact etiology unclear, possibly secondary to dementia versus encephalopathy from bilateral pneumonia #12 gram-negative bacteremia secondary to bilateral pneumonia Total clinical time spent by myself addressing the patient's medical issues, rev iewing all of his data, and collaborating with patient's care team: 35 minutes Medications at Discharge Home Medications ergocalciferol (vitamin D2) 1,250 mcg (50,000 unit) capsule 1,250 mcg PO [facility] 11/03/20 vitamin B complex-vitamin C-folic acid 0.8 mg tablet (Nephro-Lola) 1 tab PO DAILY health maintenance 07/01/21 acetaminophen 325 mg tablet (Tylenol) 650 mg PO Q4H PRN PRN Pain Score 1-10/Temp > 100.7 F 10/10/21 aspirin 81 mg tablet,delayed release 81 mg PO DAILY [facility] 10/26/21 ammonium lactate 12 % lotion 1 applic topical TID dry skin 02/17/22 bisacodyl 10 mg rectal suppository 10 mg SC DAILY PRN Constipation 02/17/22 calcium acetate(phosphat bind) 667 mg capsule 1,334 mg PO TID binder 02/17/22 loperamide 2 mg capsule 2 mg PO Q6H PRN Diarrhea 02/17/22 triamcinolone acetonide 0.1 % topical cream 1 applic topical BID PRN psoriasis 02/17/22 amlodipine 5 mg tablet 5 mg PO BID blood pressure 05/26/23 carvedilol 3.125 mg tablet 12.5 mg PO BID [facility] 05/26/23 clopidogrel 75 mg tablet (Plavix) 75 mg PO DAILY antiplatelet 05/26/23 levofloxacin 500 mg tablet 500 mg PO UD #3 tabs 05/29/23 nut.tx.imp.renal fxn,lac-reduc 0.08 gram-1.8 kcal/mL oral liquid (Nepro Carb Steady) 120 ml PO 4X/DAY #0 mL 05/29/23 Hospital Course Operations None Procedures Dialysis Summary of Care Provided Minutes Spent on Discharge: 32 Hospital Course: This 82-year-old white male was seen in the emergency room at [facility] after being brought in from assisted living due to a fall with no significant injuries, patient had periods of confusion according to his daughter also. Patient suffered only facial abrasions from his fall, work-up in the emergency room revealed the patient's white blood cell count to be elevated at 13.3, hemoglobin was 8.9, creatinine was elevated and BUN were elevated in keeping with his chronic renal disease-patient was on chronic dialysis. Brain CT showed no acute findings, there was no evidence of cervical trauma, and chest x-ray showed hazy pulmonary opacities suspicious for pneumonia with a small pleural effusion. Patient was admitted to [place] [id number], he was seen in consultation by nephrology and underwent dialysis during his hospital stay, he was treated with IV antibiotics, his white count normalized, his preliminary blood culture grew out a gram-negative organism, at the time of the patient's discharge to an extended care facility, identification of this organism was not confirmed. Patient exhibited confusion during his hospital stay, the exact etiology of the confusion was unknown but felt to be in part secondary to multiple medical problems including his pneumonia and end-stage renal disease. Patient was seen by PT and OT. Arranges were made for the patient to go to an extended care facility for short-term rehab services. alert and no apparent distress Constitutional Narrative: Patient appears frail and older than his stated age General Appearance: cooperative, well kempt and well developed Orientation / Consciousness: Patient was awake and responded to simple questions appropriately, he exhibited some confusion HEENT normocephalic, head/scalp atraumatic except for superficial abrasion over the right forehead, moist oral mucous membranes Eyes PERRL, EOMs intact bilaterally and conjunctivae normal Neck supple, no JVD, thyroid normal and no carotid bruits General: trachea midline Resp normal respiratory effort, no retractions and no use of accessory muscles Resp Narrative: Breath sounds are distant bilaterally Auscultation: Negative for rales, rhonchi or wheezes Cardio regular rate, regular rhythm, S1 normal heart sound, S2 normal heart sound, no murmurs, no rub and no gallops GI normal to inspection, nondistended, normoactive bowel sounds, soft to palpation, non-tender and non-distended Extremity Extremity Narrative: Left foot is bandaged with surgical dressing, this was not removed for examination of the patient's recent second toe amputation Neuro Patient exhibited some confusion, he was able to answer some simple questions appropriately Speech: He exhibited some mild dysarthria Psych Patient exhibited mild confusion On 05/29/2023, patient was seen and examined and felt to be in stable condition for transfer to an extended care facility for inpatient rehab services. Weight / BMI Weight Weight: 65.453 kg Body Mass Index (BMI) 21.9 ABG / Lab / Microbiology Data 05/29/23 08:26 05/27/23 06:26 Laboratory: Laboratory Results - last 24 hr 05/26/23 22:28: HCV RNA Quant (PCR) HCV Not Detected, HCV RNA (PCR) IU log10 TNP, HCV RNA PCR Test Info Comment 05/28/23 16:11: POC Glucose 208 H 05/28/23 21:19: POC Glucose 153 H 05/29/23 06:25: POC Glucose 141 H 05/29/23 08:26: WBC 9.8, RBC 2.44 L, Hgb 8.4 L, Hct 25.4 L, MCV 104.1 H, MCH 34.4 H, MCHC 33.1, RDW Std Deviation 51.2 H, RDW Coeff of Mihaela 13.3, Plt Count 166, MPV 10.6, Immature Gran % (Auto) 0.900, Neut % (Auto) 80.2 H, Lymph % (Auto) 9.1 L, [place] % (Auto) 9.0, Eos % (Auto) 0.4, Baso % (Auto) 0.4, Absolute Neuts (auto) 7.9 H, Absolute Lymphs (auto) 0.89, Nucleated RBC % 0.3 05/29/23 11:04: POC Glucose 134 H Microbiology: Microbiology 05/26/23 23:41 Blood Culture (Wb) - Right Hand Blood Culture - Preliminary 05/27/23 20:45 Urine, Clean Catch Streptococcus pneumoniae Antigen (M - F inal 05/27/23 20:45 Urine, Clean Catch Legionella Antigen - Final 05/26/23 23:55 Mucosa - Nasopharyngeal Coronavirus COVID-19 PCR - Final 05/26/23 23:55 Mucosa - Nasopharyngeal Respiratory Panel (PCR) - Final Meaningful Use Info Meaningful Use Diagnoses (Choose all that apply): None applicable Discharge Plan Admission Admit Date/Time: 05/26/23 23:33 Primary Reason for Your Visit: Bilateral pneumonia, hypoxia, debility Attending Provider: Steven Reyes Primary Care Provider: Fay Diaz Consulting Providers: Emily Weeks; Marck Segura Discharge Orders/Prescriptions Prescriptions: New Nepro Carb Steady 0.08 gram-1.8 kcal/mL Liquid 120 ml PO 4X/DAY Qty: 0 0RF levofloxacin 500 mg tablet 500 mg PO UD Qty: 3 0RF Rx Instructions: Take 1 every 48 hours starting 05/31/2023-total of 3 doses to be given Continued ergocalciferol (vitamin D2) 1,250 mcg (50,000 unit) capsule 1,250 mcg PO QMONTH Rx Instructions: takes on the aspirin 81 mg tablet,delayed release (DR/EC) 81 mg PO DAILY Nephro-Lola 0.8 mg tablet 1 tab PO DAILY Patient Comments: TAKE 1 TABLET BY MOUTH EVERY DAY acetaminophen [Tylenol] 325 mg tablet 650 mg PO Q4H PRN PRN (Reason: Pain Score 1-10/Temp > 100.7 F) ammonium lactate 12 % Lotion 1 applic TOPICAL TID loperamide 2 mg Capsule 2 mg PO Q6H PRN (Reason: Diarrhea) triamcinolone acetonide 0.1 % Cream 1 applic TOPICAL BID PRN (Reason: psoriasis) bisacodyl 10 mg Suppository 10 mg SC DAILY PRN (Reason: Constipation) calcium acetate(phosphat bind) 667 mg Capsule 1,334 mg PO TID amlodipine 5 mg tablet 5 mg PO BID clopidogrel [Plavix] 75 mg tablet 75 mg PO DAILY carvedilol 3.125 mg Tablet 12.5 mg PO BID Discontinued fiber Capsule 2 cap PO QHS PRN (Reason: constipation) mycophenolate mofetil 500 MG tablet 500 mg PO QHS Glucagon Emergency Kit 1 mg Kit 1 mg IM PRN PRN (Reason: Hypoglycemia) acetaminophen 650 mg Suppository 650 mg SC Q4H PRN (Reason: pain/fever) lidocaine 4 % Adhesive Patch,Medicated 1 patch TOPICAL DAILY Patient Comments: apply to rt groin dextrose [Glucose Gel] 40 % Gel 10 g PO Q15M PRN (Reason: Hypoglycemia) guaifenesin 100 mg/5 mL Liquid 200 mg PO Q4H PRN (Reason: Congestion) magnesium hydroxide [Milk of Magnesia] 400 mg/5 mL Suspension 30 ml PO DAILY PRN (Reason: Constipation) Antacid 225-200 mg/5 mL Suspension 30 ml PO Q4H PRN PRN (Reason: Indigestion) Fleet Enema 19-7 gram/118 mL Enema 118 ml SC DAILY PRN (Reason: Constipation) doxycycline hyclate 100 mg capsule 100 mg PO BID hydrocodone-acetaminophen 5-325 mg tablet 1 tab PO Q6H PRN (Reason: pain) loperamide [Anti-Diarrheal (loperamide)] 2 mg capsule 2 mg PO MOTUWEFR Patient Comments: give in the morning mon, tue, wed, fri related to Dependance on Renal dialysis Give prior to dialysis naproxen 500 mg tablet 500 mg PO DAILY PRN (Reason: pain) Referrals / Follow Up: Fay Diaz MD [Primary Care Provider] - Willy Vazquez DPM [Med Staff - Active Staff] - See Referral Note (Call office to make an appointment for follow-up on recent second toe amputation) Disposition Disposition (needs filled in before D/C Order can be placed): [facility] Charges/Coding Visit Charges Inpatient E&M: 32247 Disch Hosp >30min
--- NOTE | 2023-05-29 13:14 | PHA.DC.MR.R ---
Pharmacy [place] Med Reconciliation Pharmacy Service has performed discharge medication reconciliation for this patient. Per H&P, patient no longer taking CellCept. The patient's discharge medication list was reviewed for discrepancies and discrepancies were resolved. Medications at Discharge Home Medications ergocalciferol (vitamin D2) 1,250 mcg (50,000 unit) capsule 1,250 mcg PO QMONTH health maintenance 11/03/20 vitamin B complex-vitamin C-folic acid 0.8 mg tablet (Nephro-Lola) 1 tab PO DAILY health maintenance 07/01/21 acetaminophen 325 mg tablet (Tylenol) 650 mg PO Q4H PRN PRN Pain Score 1-10/Temp > 100.7 F 10/10/21 aspirin 81 mg tablet,delayed release 81 mg PO DAILY [facility] 10/26/21 ammonium lactate 12 % lotion 1 applic topical TID dry skin 02/17/22 bisacodyl 10 mg rectal suppository 10 mg [place] DAILY PRN Constipation 02/17/22 calcium acetate(phosphat bind) 667 mg capsule 1,334 mg PO TID binder 02/17/22 loperamide 2 mg capsule 2 mg PO Q6H PRN Diarrhea 02/17/22 triamcinolone acetonide 0.1 % topical cream 1 applic topical BID PRN psoriasis 02/17/22 amlodipine 5 mg tablet 5 mg PO BID blood pressure 05/26/23 carvedilol 3.125 mg tablet 12.5 mg PO BID [facility] 05/26/23 clopidogrel 75 mg tablet (Plavix) 75 mg PO DAILY antiplatelet 05/26/23 levofloxacin 500 mg tablet 500 mg PO UD #3 tabs 05/29/23 nut.tx.imp.renal fxn,lac-reduc 0.08 gram-1.8 kcal/mL oral liquid (Nepro Carb Steady) 120 ml PO 4X/DAY #0 mL 05/29/23
--- NOTE | 2023-05-29 13:53 | CASEMGMT ---
Discharge Planning Discharge orders, signed med list, and transport time sent to [facility] via [facility]. [facility] will transport patient by cot at 3p. Patient and nursing notified. A vm was left for his daughter. Monica Locke, Discharge Planning Asst.
[2023-05-29] MEDS: levoFLOXacin 750 MG Tablet PO (14:16)
--- NOTE | 2023-05-29 14:45 | NURSING ---
REPORT CALLED TO JOSE LUIS ANN AND REPORT GIVEN TO HAROON BURGESS
== END 2023-05-29 15:10 | disposition skilled nursing facility (03) | DRG 177 ==
LOC: ED 23:42 → MS3 23:47
PROVIDERS: Admitting Provider Family Medicine; Emergency Provider Emergency Medicine; PCP Internal Medicine; Visit Provider Internal Medicine
DX: J15.6 Pneumonia due to other Gram-negative bacteria (principal); N18.6 End stage renal disease; R78.81 Bacteremia; I13.2 Hypertensive heart and chronic kidney disease with heart failure and with stage 5 chronic kidney disease, or end stage renal disease; I42.9 Cardiomyopathy, unspecified; J44.0 Chronic obstructive pulmonary disease with (acute) lower respiratory infection; I50.22 Chronic systolic (congestive) heart failure; D63.8 Anemia in other chronic diseases classified elsewhere; D63.1 Anemia in chronic kidney disease; E11.22 Type 2 diabetes mellitus with diabetic chronic kidney disease; Z99.2 Dependence on renal dialysis; G47.33 Obstructive sleep apnea (adult) (pediatric); S00.83XA Contusion of other part of head, initial encounter; I25.10 Atherosclerotic heart disease of native coronary artery without angina pectoris; D53.9 Nutritional anemia, unspecified; E78.5 Hyperlipidemia, unspecified; I44.0 Atrioventricular block, first degree; R26.2 Difficulty in walking, not elsewhere classified; Z82.3 Family history of stroke; Z79.02 Long term (current) use of antithrombotics/antiplatelets; Z72.0 Tobacco use; Y95 Nosocomial condition; Z79.82 Long term (current) use of aspirin; I49.3 Ventricular premature depolarization; R53.81 Other malaise
CPT/HCPCS: 36415; 70450; 71046; 72125; 80048; 80053; 81001; 82962; 83735; 85025; 87040; 87077; 87449; 87522; 87633; 87635; 87641; 90937; 93005; 94668; 97110; 97162; 97166; 97530; 97535; 97802; 99285; J7030; J7040; J7050; A4216; G0257; J0885; Q5106

== ENCOUNTER 2023-07-25 12:15 | Outpatient (RCR) | payer MEDICARE, MEDICAID, SELFPAY | END 2023-08-13 23:59 | LOC: LABSPEC 12:15 | PROVIDERS: PCP Internal Medicine; Referring Provider Podiatrist Foot & Ankle Surgery; Visit Provider Podiatrist Foot & Ankle Surgery | DX: L97.529 Non-pressure chronic ulcer of other part of left foot with unspecified severity (principal) | CPT/HCPCS: 87070; 87075; 87077; 87101; 87186; 87205 ==

== ENCOUNTER 2023-07-31 14:45 | Outpatient (RCR) | payer MEDICARE, MEDICAID, SELFPAY ==
[2023-07-24 14:07] VITALS: BP 121/58; PULSE 49; RESP 16; TEMP 36.7; BMI 21.4
--- NOTE | 2023-07-24 16:59 | HP.PCM_ITS ---
History of Present Illness Date of Service: 07/24/23 Chief Complaint: Diabetic foot ulceration, left foot History of Wound: Patient is a 82-year-old diabetic male presenting to the wound care center today [facility] for second evaluation for ulceration to the left foot. Patient was seen by an outside domestic housekeeper at the [facility] for amputation of the left second digit and wound care. Patient is being seen today at the wound care center for evaluation and treatment. Patient is also on dialysis. He is currently residing at a facility. No treatment thus far to the left lateral wound underlying the subfifth metatarsal head. He admits to pain with weightbearing and touch. He denies trauma. Denies constitutional symptoms. No other pedal complaints at this time. Progress of Wound: Wound has evidence of eschar with erythema. [facility] Medical History Anemia Asthma Atrial fibrillation Benign essential HTN Brain aneurysm Chronic renal failure, stage 5 Closed head injury Colon polyps COPD (chronic obstructive pulmonary disease) CVA (cerebral vascular accident) Diabetes Dialysis complication Dialysis patient Fall Febrile illness, acute Fistula HCAP (healthcare-associated pneumonia) Hepatitis C History of GI bleed Hyperlipemia Hyponatremia Leukocytosis LFT elevation Metabolic encephalopathy Multifocal pneumonia NSTEMI, initial episode of care Pneumonia Problem with dialysis access PVD (peripheral vascular disease) Sleep apnea TIA (transient ischemic attack) Tobacco use disorder Troponin level elevated Type II diabetes mellitus, uncontrolled Home Medications acetaminophen 325 mg tablet (Tylenol) 650 mg PO Q4H PRN PRN Pain Score 1-10/Temp > 100.7 F 10/10/21 [History Last Taken Unknown] ammonium lactate 12 % lotion 1 applic topical TID dry skin 02/17/22 [History Last Taken Unknown] bisacodyl 10 mg rectal suppository 10 mg ND DAILY PRN Constipation 02/17/22 [History Last Taken Unknown] calcium acetate(phosphat bind) 667 mg capsule 1,334 mg PO TID binder 02/17/22 [History Last Taken Unknown] loperamide 2 mg capsule 2 mg PO Q6H PRN Diarrhea 02/17/22 [History Last Taken Unknown] triamcinolone acetonide 0.1 % topical cream 1 applic topical BID PRN psoriasis 02/17/22 [History Last Taken Unknown] amlodipine 5 mg tablet 5 mg PO BID blood pressure 05/26/23 [History Last Taken Unknown] carvedilol 3.125 mg tablet 12.5 mg PO BID heart health 05/26/23 [History Last Taken Unknown] clopidogrel 75 mg tablet (Plavix) 75 mg PO DAILY antiplatelet 05/26/23 [History Last Taken Unknown] cholecalciferol (vitamin D3) 125 mcg (5,000 unit) tablet (Vitamin D3) 125 mcg PO .monthly 07/24/23 [History Last Taken Unknown] clonidine HCl 0.2 mg tablet 0.2 mg PO DAILY PRN hypertensive emergency 07/24/23 [History Last Taken Unknown] guaifenesin 100 mg/5 mL oral liquid 200 mg PO Q6H PRN cough 07/24/23 [History Last Taken Unknown] insulin lispro 100 unit/mL subcutaneous pen (Humalog KwikPen (U-100) Insulin) 1 sliding scale dose subcut TID 07/24/23 [History Last Taken Unknown] nut.tx.imp.renal fxn,lac-reduc 0.08 gram-1.8 kcal/mL oral liquid (Nepro Carb Steady) 120 ml PO DAILY 07/24/23 [History Last Taken Unknown] potassium chloride 10 mEq capsule,extended release 20 meq PO DAILY 07/24/23 [History Last Taken Unknown] Allergy/AdvReac Type Severity Reaction Status Date / Time milk Allergy Intermediate Diarrhea Verified 07/24/23 14:30 varenicline tartrate Allergy makes me Verified 07/24/23 14:29 [From Chantix] weird, hallucinations Family History Mother CVA (cerebral vascular accident) Diabetes Hypertension Father Colon cancer Diabetes Brother Diabetes Surgical History history insertion dialysis catheter (~11/04/20) History of cataract extraction History of colectomy History of colonoscopy (~06/2020) History of surgery on left wrist History of vein stripping Social History housing: detention Smoking Status: Current every day smoker tobacco type: cigarettes alcohol intake: never substance use type: does not use Vital Signs Vital Signs Vital Signs: 07/24/23 14:07 Temperature 98.1 F Temperature Source Temporal Pulse Rate 49 L Respiratory Rate 16 Blood Pressure 121/58 H Blood Pressure Mean 79 Blood Pressure Source Monitor Blood Pressure Position Sitting Blood Pressure Location Right Arm Oxygen Delivery Method Room Air Weight Weight: 65.771 kg Body Mass Index (BMI) 21.4 Physical Exam Narrative Vascular: DP and PT pulse are faintly palpable secondary to edema. CFT is delayed. Skin temperature is warm to cool from proximal ankle to distal digits to left lower extremity. +1 pitting edema appreciated to left foot Neurological light touch and epicritic station is intact. Patient response to painful stimuli. Dermatological: Evidence of dry eschar appreciated to the dorsum of the left foot which underlying skin is healed. There is evidence of a full-thickness ulceration to the subfifth metatarsal head measuring 1.3 x 0.4 x 0.2 cm. Pain on palpation. Evident of scant purulent drainage. No probe to bone. Erythema with mild proximal streaking. Excisional debridement down to including subcutaneous tissue of the full- thickness ulceration soft with metatarsal head of the left foot with a #15 blade without incident. Predebridement measurements are eschar, postdebridement measurement is 1.3 x 0.4 x 0.2 cm. Culture was taken due to scant purulent drainage. Musculoskeletal: Moderate bony tenderness appreciated full-thickness ulceration to the subfifth metatarsal head. No pain with calf compression. Debridement Note Debridement Note Debridement Free Text: Excisional debridement down to including subcutaneous tissue of the full-thickness ulceration soft with metatarsal head of the left foot with a #15 blade without incident. Predebridement measurements are eschar, postdebridement measurement is 1.3 x 0.4 x 0.2 cm. Culture was taken due to scant purulent drainage. Post-Debridement Measurements and Additional Note: Post-Debridement Measurements/Treatment - Nurse 1 - General Ulcer Assessment Start: 07/24/23 14:03 Freq: Status: Active Protocol: GINNY Activity Type Activity Date Activity User E-sign Co-sign Detail Recorded Client Recorded Date Recorded By Document 07/24/23 14:07 [facility] Desktop 07/24/23 14:24 [facility] 07/24/23 14:07 - Today's Visit Information Type of service Initial Visit Arrival Mode Wheelchair Transfer Assistance Other Transfer Assist (Other) STAND BY Patient Identification Verified (Name & Yes ) Patient Requires Transmission-Based No Precautions Height and Weight Height 5 ft 9 in Weight 65.771 kg Weight in Pounds 145.0 lbs Weight Measurement Method Stated by Patient Body Mass Index (BMI) 21.4 BMI Classification Normal BSA - Hnak 1.80 Vital Signs Temperature (97.8 F-99.1 F) 98.1 F Temperature Source Temporal Pulse Rate (60-100) 49 L Pulse Location Monitor Respiratory Rate (12-18) 16 Respiratory rate source Observation Oxygen Delivery Method Room Air Blood Pressure (90/60-120/80) 121/58 H Blood Pressure Mean 79 Source Monitor Position Sitting Blood Pressure Location Right Arm History Since Last Visit- (Skip if this is Patient's initial visit) Left Footwear Surgical Shoe with pressure relief insole Right Footwear Custom Shoe Pain Scale: 0-10 Numeric Is Patient Pain Free? Yes Lower Extremity Assessment/ Foot Assessment/ Toe Nail Assessment Right -Posterior Tibial Doppler Monophasic -Dorsalis Pedis Doppler Monophasic -Extremity Color Pale -Hair Growth on Legs Yes -Hair Growth on Toes No -Temperature of Extremity Warm -Thick Yes -Discolored Yes -Deformed No -Improper Length & Hygeine No Left -Posterior Tibial Doppler Monophasic -Dorsalis Pedis Doppler Monophasic -Extremity Color Pale -Hair Growth on Legs Yes -Hair Growth on Toes No -Temperature of Extremity Warm -Thick Yes -Discolored Yes -Deformed No -Improper Length & Hygeine Yes Communication Assessment Preferred language Ukrainian Machine Binding Folder Required No Able to Read Yes Able to Write Yes Communication Tools None Right Hearing Abillity Normal Left Hearing Abillity Normal Visual Assistive Devices None Teaching Assessment Preferences Verbal,Written, Audio/Visual, Demonstration Barriers to Learning None Readiness To Learn Excellent Willingness to Engage in Self Management High Activies Readiness to Engage in Self Management High Activities Anxiety Level Calm Cooperation Cooperative Perception Coherent Interest in Health Problem Asks Questions Education Importance Acknowledges Need Does Patient Smoke tobacco or other No substances Smoking Status Current every day smoker Is Patient Diabetic Yes WC - Nurse 1 - General Ulcer Measurement Start: 07/24/23 14:03 Freq: Status: Active Protocol: Activity Type Activity Date Activity User E-sign Co-sign Detail Recorded Client Recorded Date Recorded By Document 07/24/23 14:07 [facility] Desktop 07/24/23 14:24 [facility] 07/24/23 14:07 Wound Center Nurse 1 #2- L DORSAL FOOT -Combined with other wound No -Current Size (cm) - Length 1.4 -Current Size (cm) - Width 2.3 -Current Size (cm) - Depth 0.1 -Total Square Cm 3.22 -Date of Last Picture (Recall this 07/24/23 field) -Photo Taken Yes -Tunneling No -Undermining/Tunneling No -Circular Undermining No -Exudate Amt None Present -Wound Margin Distinct, Outline Attached -Granulation Amt None Present (0 %) -Slough/Fibrin Yes -Necrosis Amt Large (67-100%) -Necrotic Tissue Type Eschar -Texture (Doreen-wound Skin Appearance) Assessed -Moisture (Doreen-wound Skin Appearance) Assessed -Color (Doreen-wound Skin Appearance) Assessed -Temperature (Doreen-wound Skin No Abnormality Appearance) (Pt Warm) -Tenderness on Palpation (Doreen-wound No Skin Appearance) -Ulcer Cleansing Soap and Water -Foul Odor after Cleansing No -Anesthetic Used 5% Lidocaine Gel #1- L LAT FOOT -Combined with other wound No -Current Size (cm) - Length 1.4 -Current Size (cm) - Width 0.7 -Current Size (cm) - Depth 0.1 -Total Square Cm 0.98 -Date of Last Picture (Recall this 07/24/23 field) -Photo Taken Yes -Epithelialization None Present -Tunneling No -Undermining/Tunneling No -Circular Undermining No -Exudate Amt None Present -Wound Margin Distinct, Outline Attached -Granulation Amt None Present (0 %) -Slough/Fibrin Yes -Necrosis Amt Large (67-100%) -Necrotic Tissue Type Eschar -Texture (Doreen-wound Skin Appearance) Assessed, Scarring -Moisture (Doreen-wound Skin Appearance) Assessed -Color (Doreen-wound Skin Appearance) Assessed -Temperature (Doreen-wound Skin No Abnormality Appearance) (Pt Warm) -Tenderness on Palpation (Doreen-wound No Skin Appearance) -Ulcer Cleansing Soap and Water -Foul Odor after Cleansing No -Anesthetic Used 5% Lidocaine Gel Right Calf (cm) 28.5 Right Ankle (cm) 20 Left Calf (cm) 27.5 Left Ankle (cm) 20 WC - Nurse 2 - General Ulcer CM Notes Start: 07/24/23 14:03 Freq: Status: Active Protocol: Activity Type Activity Date Activity User E-sign Co-sign Detail Recorded Client Recorded Date Recorded By Document 07/24/23 15:07 [facility] Laptop 07/24/23 15:08 07/24/23 15:07 Wound Center Nurse 2 #2- L DORSAL FOOT -Correct Patient No -Correct Side, Site, Position No -Correct Procedure No -Procedure Performed No -Post Debridement (cm) - Length 0 -Post Debridement (cm) - Width 0 -Post Debridement (cm) - Depth 0 -Total Square (Post) (cm) 0 -Area of Debridement (cm) - Length 0 -Area of Debridement (cm) - Width 0 -Total Square (Area) (cm) 0 -Wound/Ulcer Outcome Healed- Epithelialized #1- L LAT FOOT -Time 15:07 -Correct Patient Yes -Correct Side, Site, Position Yes -Correct Procedure Yes -Procedure Performed Yes -Type of Procedure Debridement -Clinical Debridement Subcutaneous -Tissue Removed Subcutaneous -Post Debridement (cm) - Length 1.3 -Post Debridement (cm) - Width 0.4 -Post Debridement (cm) - Depth 0.2 -Total Square (Post) (cm) 0.52 -Area of Debridement (cm) - Length 1.3 -Area of Debridement (cm) - Width 0.4 -Total Square (Area) (cm) 0.52 -Tunneling No -Undermining/Tunneling No -Circular Undermining No -Wound/Ulcer Outcome Not Healed -Ulcer Cleansing Rinsed/ Irrigated with Saline -Foul Odor after Cleansing No -Bioengineered Tissue No -Bleeding Controlled with Pressure -Treatment Response Procedure Tolerated Well -Offloading No -Debridement - Subq, 1st 20sq cm Yes Pain Scale: 0-10 Numeric Is Patient Pain Free? Yes - Nurse 3 - General Ulcer D/C NN Start: 07/24/23 14:03 Freq: Status: Active Protocol: Activity Type Activity Date Activity User E-sign Co-sign Detail Recorded Client Recorded Date Recorded By Document 07/24/23 15:21 [facility] Desktop 07/24/23 15:22 KW 07/24/23 15:21 Wound Care Center Nurse 3 #1- L LAT FOOT -Ulcer Cleansing Rinsed/ Irrigated with Saline -Primary Dressing Covered/Secured with Dry Gauze & Roll Gauze, Secured with Tape Pain Scale: 0-10 Numeric Is Patient Pain Free? Yes - Visit Discharge Discharge Condition Stable Ambulatory Status Wheelchair Transportation Private Auto Medication Reconcilliation completed & No provided to patient/care provider Clinical Summary of Care Provided Yes Assessment/Plan Assessment/Plan (1) Ulcer of left foot with fat layer exposed: CODE(S): L97.522 - Non-pressure chronic ulcer of other part of left foot with fat layer exposed PLAN: Patient was examined evaluated. All findings were discussed with the patient. All questions were answered to the patient satisfaction. Excisional debridement down to including subcutaneous tissue of the full- thickness ulceration soft with metatarsal head of the left foot with a #15 blade without incident. Predebridement measurements are eschar, postdebridement measurement is 1.3 x 0.4 x 0.2 cm. Culture was taken due to scant purulent drainage. Wound was dressed with Betadine soaked gauze, dry sterile dressing and a light compression wrap. Patient will be placed on doxycycline 100 mg to be taken twice daily for 14 days. Antibiotics may need to be changed after culture and sensitivity returns. Ordered x-rays of the left foot to rule out osteomyelitis. Ordered vascular studies, PVRs and venous to rule out any arterial disease at this time. Follow-up 1 week (2) Chronic painful diabetic polyneuropathy: CODE(S): E11.42 - Type 2 diabetes mellitus with diabetic polyneuropathy
--- NOTE | 2023-07-30 12:47 | VDLE_ITS ---
Reason For Study: foot uler, PVD RIGHT LEFT CFV is compressible, spontaneous, phasic, CFV is compressible, spontaneous, phasic, competent and demonstrates normal competent, and demonstrates normal augmentation. augmentation. FV is compressible, spontaneous, phasic, FV is compressible, spontaneous, phasic, competent and demonstrates normal competent and demonstrates normal augmentation. augmentation. POP V is compressible, spontaneous, phasic, POP V is compressible, spontaneous, phasic, competent and demonstrates normal competent and demonstrates normal augmentation. augmentation. T/P Trunk is compressible. T/P Trunk is compressible. PTV is compressible. PTV is compressible. RT PerV is compressible. LT PerV is compressible. GSV is harvested. GSV is harvested. SSV proximal calf is competent and SSV proximal calf is competent and measures .22 x .26 cm. measures .16 x .21 cm. Procedure This is a venous duplex using B-mode, color flow and spectral Doppler. Exam performed in department. The exam was diagnostic. VL/Venous Duplex US - Fabricio Extrem Interpretation Summary Deep veins of the lower extremities are bilaterally patent and compressible seg mentally. There is no evidence of deep vein thrombosis on either side. Valvular competence appears in tact within the proximal deep venous systems bilaterally. The great saphenous veins are absent bilaterally, having been previously harvested. Small saphenous veins are patent and competent bilat erakaleb. Ordering Physician: Juan Reyes Referring Physician: Fay Diaz Performed By: Peng Chris, RVT
--- NOTE | 2023-07-30 12:47 | ART_ITS ---
Reason For Study: PVD, foot ulcer Procedure A bilateral lower extremity continuous wave Doppler with analog waveform analysis,segmental pressures,and ankle brachial indexes without exercise. Left Segmental Pressures Left calf = 191mmHg. Left posterior tibial artery = 124mmHg. Left dorsalis pedis artery = 126mmHg. Left digit = 54 mmHg. The left dorsalis pedis waveforms are biphasic. The left posterior tibial artery waveforms are biphasic. Right Segmental Pressures Right brachial= 160mmHg. Right calf = 157mmHg. Right posterior tibial artery = 155mmHg. Right dorsalis pedis artery = 154mmHg. Right digit = 110 mmHg. The right posterior tibial artery waveforms are triphasic. The right dorsalis pedis waveforms are biphasic. Indices The right ankle brachial index by the dorsalis pedis is .96. The right ankle brachial index by the posterior tibial artery is .97. The right digital-brachial index is .69. The left ankle brachial index by the posterior tibial artery is .78. The left ankle brachial index by the dorsalis pedis is .79. The left digital-brachial index is .34. VL/Lower Ext Art Exam w/o Exercis Interpretation Summary Triphasic and biphasic Doppler waveforms are noted at ankle level on the right. Biphasic Doppler waveforms are noted at ankle level on the left. Pulse-volume recordings are dim inished at digital level on the left. The resting right ankle-brachial index is mildly diminished. The resting left ankle-brachial index is moderately diminished. The right digital-brachial index is mildly diminished. The left digital-brachial index is moderately to severely diminishe d. There is evidence of mild arterial occlusive disease at ankle and digital level on the right. There is evidence of [id number] arterial occlusive disease in the left lower extremity, which is multi-segmental in nature. Ordering Physician: Juan Reyes Performed By: Peng Chris RVT
--- NOTE | 2023-07-30 13:24 | RAD_ITS ---
STUDY: X-RAY - LEFT FOOT CLINICAL: Male, 82 years old. LEFT LATERAL FOOT ULCER/ R/O OSTEOMYELITIS TECHNIQUE: 4 view(s) of the foot. COMPARISON: None. FINDINGS: Normal talus, calcaneus, and tarsal bones. Normal visualized subtalar, talonavicular, calcaneocuboid, tarsal and tarsometatarsal articulations. Normal metatarsi. Normal metatarsophalangeal joint of the great toe. Normal tibial and fibular sesamoid bones. Normal interphalangeal joint of the great toe. Normal phalanges of the great toe. Postop changes status post amputation of the second toe at the metatarsal phalangeal joint. Normal interphalangeal joints and phalanges of the lesser toes. Soft tissues ulceration lateral to the fifth toe at the level of the metatarsal phalangeal joint RAD/Foot min 3 Views IMPRESSION: Ulceration of the soft tissues lateral to the fifth metatarsal phalangeal joint without radiographic evidence for acute osteomyelitis. MRI recommended for more definitive evaluation if indicated Electronically Signed: Zach Anthony MD at 20:44 EDT ,
[2023-07-31 14:48] VITALS: BP 130/50; PULSE 48; RESP 18; TEMP 36.1; BMI 21.4
--- NOTE | 2023-07-31 16:42 | PN.PCM_ITS ---
History of Present Illness Date of Service: 07/31/23 Chief Complaint: Diabetic foot ulceration, left foot History of Wound: Patient is a 82-year-old diabetic male presenting to the wound care center today [facility] for second evaluation for ulceration to the left foot. Patient was seen by an outside purchasing administrator at the [facility] for amputation of the left second digit and wound care. Patient is being seen today at the wound care center for evaluation and treatment. Patient is also on dialysis. He is currently residing at a facility. No treatment thus far to the left lateral wound underlying the subfifth metatarsal head. He admits to pain with weightbearing and touch. He denies trauma. Denies constitutional symptoms. No other pedal complaints at this time. Progress of Wound: Wound has evidence of eschar with erythema. Subjective Subjective Mr. Rodriguez is a 82-year-old diabetic male presenting to the wound care center today for follow-up of full-thickness ulceration to the lateral aspect of his left foot. Patient is also here to review his vascular studies as well as radiographs of the left foot. Patient has been taking the oral doxycycline and has noticed improvement with pain and redness to his left foot. His blood sugar has been controlled. He currently resides at a [facility] facility. He denies trauma. Denies constitutional symptoms. No other pedal complaints at this time. Objective Data Objective Data Vital Signs: Vital Signs Temp Pulse Resp BP O2 Del Method 97.0 F L 48 L 18 130/50 H Room Air 07/31/23 14:48 07/31/23 14:48 07/31/23 14:48 07/31/23 14:48 07/31/23 14:48 Oxygen Delivery Method Room Air Weight: 65.771 kg Body Mass Index (BMI) 21.4 Radiography Diagnostic Testing: Radiology Impression Extremity Arterial Study 07/30/23 12:47 Interpretation Summary Triphasic and biphasic Doppler waveforms are noted at ankle level on the right. Biphasic Doppler waveforms are noted at ankle level on the left. Pulse-volume recordings are diminished at digital level on the left. The resting right ankle-brachial index is mildly diminished. The resting left ankle-brachial index is moderately diminished. The right digital-brachial index is mildly diminished. The left digital-brachial index is moderately to severely diminished. There is evidence of mild arterial occlusive disease at ankle and digital level on the right. There is evidence of [id number] arterial occlusive disease in the left lower extremity, which is multi-segmental in nature. Ordering Physician: Juan Reyes Performed By: Peng Chris RVT Venous Doppler Study 07/30/23 12:47 Interpretation Summary Deep veins of the lower extremities are bilaterally patent and compressible se gmentally. There is no evidence of deep vein thrombosis on either side. Valvular competence appears intact within the proximal deep venous systems bilaterally. The great saphenous veins are absent bilaterally, having been previously harvested. Small saphenous veins are patent and competent bilaterally. Ordering Physician: Juan Reyes Referring Physician: Fay Diaz Performed By: Peng Chris, RVAn Foot X-Ray 07/30/23 13:24 IMPRESSION: Ulceration of the soft tissues lateral to the fifth metatarsal phalangeal joint without radiographic evidence for acute osteomyelitis. MRI recommended for more definitive evaluation if indicated Electronically Signed: Zach Anthony MD at 20:44 EDT , Physical Exam Narrative Vascular: DP and PT pulse are faintly palpable secondary to edema. CFT is delayed. Skin temperature is warm to cool from proximal ankle to distal digits to left lower extremity. +1 pitting edema appreciated to left foot Neurological light touch and epicritic station is intact. Patient response to painful stimuli. Dermatological: Evidence of dry eschar appreciated to the dorsum of the left foot which underlying skin is healed. There is evidence of a full-thickness ulceration to the subfifth metatarsal head eschar. Pain on palpation. No drainage noted. No probe to bone. Erythema with mild proximal streaking, improving. Excisional debridement down to including subcutaneous tissue of the full- thickness ulceration soft with metatarsal head of the left foot with a #15 blade without incident. Predebridement measurements are eschar, postdebridement measurement is 1.0 x 0.8 x 0.1 cm. Musculoskeletal: Moderate bony tenderness appreciated full-thickness ulceration to the subfifth metatarsal head. No pain with calf compression. Debridement Note Debridement Note Debridement Free Text: Excisional debridement down to including subcutaneous tissue of the full-thickness ulceration soft with metatarsal head of the left foot with a #15 blade without incident. Predebridement measurements are eschar, postdebridement measurement is 1.0 x 0.8 x 0.1 cm. 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 ) Arrival Mode Wheelchair Wheelchair Transfer Assistance Other Transfer Assist (Other) STAND BY Patient Identification Verified (Name & Yes Yes ) Patient Requires Transmission-Based No Precautions Height and Weight Height 5 ft 9 in Weight 65.771 kg Weight in Pounds 145.0 lbs Weight Measurement Method Stated by Patient Body Mass Index (BMI) 21.4 21.4 BMI Classification Normal Normal BSA - Hank 1.80 Vital Signs Temperature (97.8 F-99.1 F) 98.1 F 97.0 F L Temperature Source Temporal Temporal Pulse Rate (60-100) 49 L 48 L Pulse Location Monitor Respiratory Rate (12-18) 16 18 Respiratory rate source Observation Observation Oxygen Delivery Method Room Air Room Air Blood Pressure (90/60-120/80) 121/58 H 130/50 H Blood Pressure Mean (mm Hg) 79 76 Source Monitor Monitor Position Sitting Sitting Blood Pressure Location Right Arm Right Arm History Since Last Visit- (Skip if this is Patient's initial visit) Have you changed medications since your No last visit? Any new allergies or adverse reactions No Had a fall/change in ADL's that may No increase risk of falls Signs or symptoms of abuse and/or No neglect since last visit Have you been in the hospital since your No last visit? Has dressing in place as prescribed Yes Has compression in place as prescribed Yes Has offloadiing in place as prescribed Yes Experienced any changes in pain level or No management Left Footwear Surgical Shoe Surgical Shoe with pressure with pressure relief insole relief insole Right Footwear Custom Shoe Regular Shoe Pain Scale: 0-10 Numeric Is Patient Pain Free? Yes Yes Lower Extremity Assessment/ Foot Assessment/ Toe Nail Assessment Right -Posterior Tibial Doppler Monophasic -Dorsalis Pedis Doppler Monophasic -Extremity Color Pale -Hair Growth on Legs Yes -Hair Growth on Toes No -Temperature of Extremity Warm -Thick Yes -Discolored Yes -Deformed No -Improper Length & Hygeine No Left -Posterior Tibial Doppler Monophasic -Dorsalis Pedis Doppler Monophasic -Extremity Color Pale -Hair Growth on Legs Yes -Hair Growth on Toes No -Temperature of Extremity Warm -Thick Yes -Discolored Yes -Deformed No -Improper Length & Hygeine Yes Communication Assessment Preferred language Turkish Hand Laster Required No Able to Read Yes Able to Write Yes Communication Tools None Right Hearing Abillity Normal Left Hearing Abillity Normal Visual Assistive Devices None Teaching Assessment Preferences Verbal,Written, Audio/Visual, Demonstration Barriers to Learning None Readiness To Learn Excellent Willingness to Engage in Self Management High Activies Readiness to Engage in Self Management High Activities Anxiety Level Calm Cooperation Cooperative Perception Coherent Interest in Health Problem Asks Questions Education Importance Acknowledges Need Does Patient Smoke tobacco or other No substances Smoking Status Current every day smoker Is Patient Diabetic Yes WC - Nurse 1 - General Ulcer Measurement Start: 07/24/23 14:03 Freq: Status: Active Protocol: Activity Type Activity Date Activity User E-sign Co-sign Detail Recorded Client Recorded Date Recorded By Document 07/24/23 14:07 [facility] Desktop 07/24/23 14:24 [facility] Document 07/31/23 14:48 KW Desktop 07/31/23 14:56 KW 07/24/23 07/31/23 14:07 14:48 Wound Center Nurse 1 #2- L DORSAL FOOT -Combined with other wound No -Current Size (cm) - Length 1.4 -Current Size (cm) - Width 2.3 -Current Size (cm) - Depth 0.1 -Total Square Cm 3.22 -Date of Last Picture (Recall this 07/24/23 field) -Photo Taken Yes -Tunneling No -Undermining/Tunneling No -Circular Undermining No -Exudate Amt None Present -Wound Margin Distinct, Outline Attached -Granulation Amt None Present (0 %) -Slough/Fibrin Yes -Necrosis Amt Large (67-100%) -Necrotic Tissue Type Eschar -Texture (Doreen-wound Skin Appearance) Assessed -Moisture (Doreen-wound Skin Appearance) Assessed -Color (Doreen-wound Skin Appearance) Assessed -Temperature (Doreen-wound Skin No Abnormality Appearance) (Pt Warm) -Tenderness on Palpation (Doreen-wound No Skin Appearance) -Ulcer Cleansing Soap and Water -Foul Odor after Cleansing No -Anesthetic Used 5% Lidocaine Gel #1- L LAT FOOT -Combined with other wound No -Current Size (cm) - Length 1.4 0.9 -Current Size (cm) - Width 0.7 0.5 -Current Size (cm) - Depth 0.1 0.1 -Total Square Cm 0.98 0.45 -Date of Last Picture (Recall this 07/24/23 field) -Photo Taken Yes Yes -Epithelialization None Present -Tunneling No -Undermining/Tunneling No -Circular Undermining No -Exudate Amt None Present -Wound Margin Distinct, Distinct, Outline Outline Attached Attached -Granulation Amt None Present (0 %) -Slough/Fibrin Yes -Necrosis Amt Large (67-100%) Large (67-100%) -Necrotic Tissue Type Eschar Eschar -Texture (Doreen-wound Skin Appearance) Assessed, Assessed Scarring -Moisture (Doreen-wound Skin Appearance) Assessed Assessed -Color (Doreen-wound Skin Appearance) Assessed Assessed -Temperature (Doreen-wound Skin No Abnormality No Abnormality Appearance) (Pt Warm) (Pt Warm) -Tenderness on Palpation (Doreen-wound No No Skin Appearance) -Ulcer Cleansing Soap and Water Rinsed/ Irrigated with Saline -Foul Odor after Cleansing No -Anesthetic Used 5% Lidocaine 5% Lidocaine Gel Gel Right Calf (cm) 28.5 Right Ankle (cm) 20 Left Calf (cm) 27.5 Left Ankle (cm) 20 WC - Nurse 2 - General Ulcer CM Notes Start: 07/24/23 14:03 Freq: Status: Active Protocol: Activity Type Activity Date Activity User E-sign Co-sign Detail Recorded Client Recorded Date Recorded By Document 07/24/23 15:07 Laptop 07/24/23 15:08 Document 07/31/23 15:32 Laptop 07/31/23 15:38 07/24/23 07/31/23 15:07 15:32 Wound Center Nurse 2 #2- L DORSAL FOOT -Correct Patient No -Correct Side, Site, Position No -Correct Procedure No -Procedure Performed No -Post Debridement (cm) - Length 0 -Post Debridement (cm) - Width 0 -Post Debridement (cm) - Depth 0 -Total Square (Post) (cm) 0 -Area of Debridement (cm) - Length 0 -Area of Debridement (cm) - Width 0 -Total Square (Area) (cm) 0 -Wound/Ulcer Outcome Healed- Epithelialized #1- L LAT FOOT -Time 15:07 15:33 -Correct Patient Yes Yes -Correct Side, Site, Position Yes Yes -Correct Procedure Yes Yes -Procedure Performed Yes Yes -Type of Procedure Debridement Debridement -Clinical Debridement Subcutaneous Subcutaneous -Tissue Removed Subcutaneous Subcutaneous -Post Debridement (cm) - Length 1.3 1.0 -Post Debridement (cm) - Width 0.4 0.8 -Post Debridement (cm) - Depth 0.2 0.1 -Total Square (Post) (cm) 0.52 0.80 -Area of Debridement (cm) - Length 1.3 1.0 -Area of Debridement (cm) - Width 0.4 0.8 -Total Square (Area) (cm) 0.52 0.80 -Tunneling No No -Undermining/Tunneling No No -Circular Undermining No No -Wound/Ulcer Outcome Not Healed Not Healed -Ulcer Cleansing Rinsed/ Rinsed/ Irrigated with Irrigated with Saline Saline -Foul Odor after Cleansing No No -Bioengineered Tissue No No -Bleeding Controlled with Pressure Pressure -Treatment Response Procedure Procedure Tolerated Well Tolerated Well -Offloading No No -Debridement - Subq, 1st 20sq cm Yes Yes Pain Scale: 0-10 Numeric Is Patient Pain Free? Yes Yes - Nurse 3 - General Ulcer D/C NN Start: 07/24/23 14:03 Freq: Status: Active Protocol: Activity Type Activity Date Activity User E-sign Co-sign Detail Recorded Client Recorded Date Recorded By Document 07/24/23 15:21 KW Desktop 07/24/23 15:22 KW Document 07/31/23 15:41 KW Desktop 07/31/23 15:42 KW 07/24/23 07/31/23 15:21 15:41 Wound Care Center Nurse 3 #1- L LAT FOOT -Ulcer Cleansing Rinsed/ Irrigated with Saline -Primary Dressing Covered/Secured with Dry Gauze & Dry Gauze & Roll Gauze, Roll Gauze, Secured with Secured with Tape Tape Pain Scale: 0-10 Numeric Is Patient Pain Free? Yes Yes - Visit Discharge Discharge Condition Stable Stable Ambulatory Status Wheelchair Wheelchair Transportation Private Auto Accompanied by jose Medication Reconcilliation completed & No No provided to patient/care provider Clinical Summary of Care Provided Yes Yes Assessment/Plan Assessment/Plan (1) Ulcer of left foot with fat layer exposed: CODE(S): L97.522 - Non-pressure chronic ulcer of other part of left foot with fat layer exposed PLAN: Patient was examined evaluated. All findings were discussed with the patient. All questions were answered to the patient satisfaction. Reviewed the patient's radiographs that show no evidence of osteomyelitis to the left fifth metatarsal head. Patient may benefit from a dorsiflexor he osteotomy and delayed primary closure if the ulceration is showing evidence of nonhealing. Excisional debridement down to including subcutaneous tissue of the full- thickness ulceration soft with metatarsal head of the left foot with a #15 blade without incident. Predebridement measurements are eschar, postdebridement measurement is 1.0 x 0.8 x 0.1 cm. Ulceration was dressed with Betadine paint and Band-Aid. We will order the patient Santyl to be applied nickel thick to the ulceration with moist gauze and dry sterile dressing. This is to be done/changed daily until follow-up in 1 week. 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 TBI's are little bit on the low side for healing however with routine wound care that the patient should be able to heal his wound. If there is concern for delayed healing will recommend the patient to follow-up for vascular for consultation.
== END 2023-08-13 23:59 | disposition home or self-care (01) ==
LOC: WC 14:45
PROVIDERS: PCP Internal Medicine; Referring Provider Internal Medicine; Visit Provider Podiatrist Foot & Ankle Surgery
DX: E11.621 Type 2 diabetes mellitus with foot ulcer (principal); E11.51 Type 2 diabetes mellitus with diabetic peripheral angiopathy without gangrene; L97.522 Non-pressure chronic ulcer of other part of left foot with fat layer exposed; J44.9 Chronic obstructive pulmonary disease, unspecified; E11.22 Type 2 diabetes mellitus with diabetic chronic kidney disease; E11.42 Type 2 diabetes mellitus with diabetic polyneuropathy; N18.5 Chronic kidney disease, stage 5; I12.0 Hypertensive chronic kidney disease with stage 5 chronic kidney disease or end stage renal disease; Z79.4 Long term (current) use of insulin; E78.5 Hyperlipidemia, unspecified; R60.0 Localized edema; Z79.02 Long term (current) use of antithrombotics/antiplatelets; Z79.899 Other long term (current) drug therapy; F17.210 Nicotine dependence, cigarettes, uncomplicated
CPT/HCPCS: 11042; 73630; 93923; 93970; 99214; G0463

== ENCOUNTER 2023-08-05 12:47 | Inpatient (IN) | payer MEDICARE, MEDICAID, SELFPAY ==
[2023-08-05] VITALS (14 sets, daily range): BP systolic 138–164; BP diastolic 46–88; PULSE 62–74; RESP 18–28; TEMP 36.6–37.1; O2SAT 90–98; BMI 20.9; BMI 20.1
[2023-08-05] MEDS: Ipratropium/Albuterol Sulfate 3 ML AMPUL.NEB INHALATION ×4 (13:17→22:55)
[2023-08-05] MEDS: Albuterol 2.5 MG/3 ML VIAL.NEB. INHALATION (13:17)
--- NOTE | 2023-08-05 13:23 | EX.ED.DYSGE1 ---
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 Patient presents to the emergency department for sudden onset of coughing, shortness of breath, wheezing after hemodialysis. Per the patient, he has been feeling well recently, denies any fever or chills. Patient states that it came on after his dialysis. Patient does have 2 L of oxygen he wears as needed at the assisted living facility however he does not wear it all the time. Patient was hypoxic at 88% on 2 L. Patient states he does feel that he is short of breath, he denies bringing anything up with his cough. Denies any recent sick contacts. Denies any recent antibiotic use. PFS <FAUSTINA Figueredo - Last Filed: 08/05/23 15:07> [facility], [facility] Medical History (Updated 08/05/23 @ 16:47 by Jeana Castillo) Anemia Asthma Atrial fibrillation Benign essential HTN Brain aneurysm Chronic renal failure, stage 5 Closed head injury Colon polyps COPD (chronic obstructive pulmonary disease) CVA (cerebral vascular accident) Diabetes Dialysis complication Dialysis patient Fall Febrile illness, acute Fistula HCAP (healthcare-associated pneumonia) Hepatitis C History of GI bleed Hyperlipemia Hyponatremia Kidney disease Leukocytosis LFT elevation Metabolic encephalopathy Multifocal pneumonia NSTEMI, initial episode of care On home oxygen therapy Pneumonia Problem with dialysis access PVD (peripheral vascular disease) Sleep apnea Smoker TIA (transient ischemic attack) Tobacco use disorder Troponin level elevated Type II diabetes mellitus, uncontrolled Home Medications acetaminophen 325 mg tablet (Tylenol) 650 mg PO Q4H PRN PRN Pain Score 1-10/Temp > 100.7 F 10/10/21 [History Last Taken Unknown] ammonium lactate 12 % lotion 1 applic topical TID dry skin 02/17/22 [History Last Taken Unknown] bisacodyl 10 mg rectal suppository 10 mg KS DAILY PRN Constipation 02/17/22 [History Last Taken Unknown] calcium acetate(phosphat bind) 667 mg capsule 1,334 mg PO TID binder 02/17/22 [History Last Taken Unknown] loperamide 2 mg capsule 2 mg PO Q6H PRN Diarrhea 02/17/22 [History Last Taken Unknown] triamcinolone acetonide 0.1 % topical cream 1 applic topical BID PRN psoriasis 02/17/22 [History Last Taken Unknown] amlodipine 5 mg tablet 5 mg PO BID blood pressure 05/26/23 [History Last Taken Unknown] carvedilol 3.125 mg tablet 12.5 mg PO BID heart health 05/26/23 [History Last Taken Unknown] clopidogrel 75 mg tablet (Plavix) 75 mg PO DAILY antiplatelet 05/26/23 [History Last Taken Unknown] cholecalciferol (vitamin D3) 125 mcg (5,000 unit) tablet (Vitamin D3) 125 mcg PO .monthly supplement 07/24/23 [History Last Taken Unknown] clonidine HCl 0.2 mg tablet 0.2 mg PO DAILY PRN hypertensive emergency 07/24/23 [History Last Taken Unknown] guaifenesin 100 mg/5 mL oral liquid 200 mg PO Q6H PRN cough 07/24/23 [History Last Taken Unknown] insulin lispro 100 unit/mL subcutaneous pen (Humalog KwikPen (U-100) Insulin) 1 sliding scale dose subcut TID diabetes 07/24/23 [History Last Taken Unknown] potassium chloride 10 mEq capsule,extended release 20 meq PO DAILY hypokalemia 07/24/23 [History Last Taken Unknown] magnesium hydroxide 30 ml PO .1 PRN constipation 08/05/23 [History Last Taken Unknown] vitamin B complex-vitamin C-folic acid 0.8 mg tablet (Nephro-Lola) 1 tab PO DAILY supplement 08/05/23 [History Last Taken Unknown] Allergy/AdvReac Type Severity Reaction Status Date / Time milk Allergy Intermediate Diarrhea Verified 08/05/23 16:05 varenicline tartrate Allergy makes me Verified 08/05/23 16:05 [From Chantitrudy] loyd oseguera Family History Mother CVA (cerebral vascular accident) Diabetes Hypertension Father Colon cancer Diabetes Brother Diabetes Surgical History history insertion dialysis catheter (~11/04/20) History of cataract extraction History of colectomy History of colonoscopy (~06/2020) History of surgery on left wrist History of vein stripping Social History (Updated 08/05/23 @ 15:[address] Kaley Hamilton, DO) housing: snf Smoking Status: Light Smoker (<10/day) alcohol intake: former details: Patient quit using alcohol 14 years ago substance use type: does not use ROS <FAUSTINA Figueredo - Last Filed: 08/05/23 15:07> ROS ED ROS Narrative Constitutional: Negative for fever, chills, weight loss. For weakness Eyes: Negative for vision loss, vision change, double vision ENT: Negative for any sore throat, ear pain, congestion Cardiovascular: Negative for any chest pain, tightness, palpitations Respiratory: Negative for any sputum production, hemoptysis. Positive for cough, dyspnea, dyspnea on exertion, orthopnea Gastrointestinal: Negative for any abdominal pain, nausea, vomiting, diarrhea, constipation, blood in stool, blood in vomit : Negative for any urinary frequency, dysuria, retention, blood in urine Muscle skeletal: Negative for any muscle joint pain, stiffness, myalgias, arthralgias, neck pain, back pain Neurological: Negative for any headache, syncope, numbness or tingling, dizziness Skin: Negative for any rashes, lumps, itching, abrasions, lacerations Psychiatric: Negative for any depression, anxiety, stress, suicidal ideation, homicidal ideation Hematologic: Negative for any easy bruising, excessive bruising, easy bleeding Allergies: Negative for any eczema, hives, rash EXAM <FAUSTINA Figueredo - Last Filed: 08/05/23 15:07> Physical Exam Narrative Exam Narrative: Vital signs reviewed. Patient does appear to be in mild to moderate distress, patient is tachypneic, pulse oxygenation is 88% on 2 to 3 L. Patient does have a harsh cough, as well as adventitious lung sounds. Patient is alert and orient x4. HEET: Head normocephalic atraumatic, TMs clear bilaterally. Posterior pharynx is clear, moist mucous membranes. Nares clear bilaterally. Neck: Supple with no lymphadenopathy or tenderness. No signs of meningismus, negative jolt sign. Cardiac: Regular rate and rhythm no murmurs gallops or rubs, equal peripheral pulses bilaterally. Respiratory: She has expiratory wheezes, crackles to the mid and lower bases, worse on the left than the right.. No chest tenderness. Abdomen: Soft, nontender, nondistended. No abdominal bruit or pulsatile masses. No hepatosplenomegaly Extremities: No peripheral edema, no signs of gross trauma or deformity. Active full range of motion of all extremities. Does have his dialysis port to the left bicep, positive thrill, bruit. Neuro: Cranial nerves II through XII intact, no focal neurological deficits. Skin: Clean dry and intact with no rash, purpura, petechiae, vesicles or pustules. Backs/flank: No CVA tenderness, no midline spinal tenderness, no deformity. Psych: Normal mood and affect. No SI, HI or acute psychosis. Const Vital Signs: 08/05/23 12:48 08/05/23 12:58 08/05/23 13:41 Temperature 98 F Temperature Source Oral Pulse Rate 63 Respiratory Rate 20 H Respiratory Effort Normal Respiratory Depth Normal Respiratory Pattern Normal Blood Pressure 164/53 H Blood Pressure Mean 90 Pulse Ox 90 Oxygen Delivery Method Room Air Nasal Cannula Nasal Cannula Oxygen Flow Rate (L/min) 2 3 08/05/23 13:19 08/05/23 13:19 08/05/23 13:47 Temperature Temperature Source Pulse Rate 66 74 Respiratory Rate 20 H 18 Respiratory Effort Respiratory Depth Respiratory Pattern Normal Blood Pressure Blood Pressure Mean Pulse Ox 96 Oxygen Delivery Method Nasal Cannula Nasal Cannula Oxygen Flow Rate (L/min) 9 4 08/05/23 14:47 Temperature Temperature Source Pulse Rate 72 Respiratory Rate 18 Respiratory Effort Respiratory Depth Respiratory Pattern Blood Pressure 150/88 H Blood Pressure Mean 108 Pulse Ox 92 Oxygen Delivery Method Nasal Cannula Oxygen Flow Rate (L/min) 4 <Dr. Landy Boyd, DO - Last Filed: 08/05/23 17:27> Physical Exam Const Vital Signs: 08/05/23 12:48 08/05/23 12:58 08/05/23 13:41 Temperature 98 F Temperature Source Oral Pulse Rate 63 Respiratory Rate 20 H Respiratory Effort Normal Respiratory Depth Normal Respiratory Pattern Normal Blood Pressure 164/53 H Blood Pressure Mean 90 Pulse Ox 90 Oxygen Delivery Method Room Air Nasal Cannula Nasal Cannula Oxygen Flow Rate (L/min) 2 3 08/05/23 13:19 08/05/23 13:19 08/05/23 13:47 Temperature Temperature Source Pulse Rate 66 74 Respiratory Rate 20 H 18 Respiratory Effort Respiratory Depth Respiratory Pattern Normal Blood Pressure Blood Pressure Mean Pulse Ox 96 Oxygen Delivery Method Nasal Cannula Nasal Cannula Oxygen Flow Rate (L/min) 9 4 08/05/23 14:47 Temperature Temperature Source Pulse Rate 72 Respiratory Rate 18 Respiratory Effort Respiratory Depth Respiratory Pattern Blood Pressure 150/88 H Blood Pressure Mean 108 Pulse Ox 92 Oxygen Delivery Method Nasal Cannula Oxygen Flow Rate (L/min) 4 MDM <Shaheen Scales ASSOCIATE PROFESSOR [employer] - Last Filed: 08/05/23 15:07> [facility] Lab Data Labs: Laboratory Results - last 24 hr 08/05/23 08/05/23 12:59 13:40 WBC 9.4 RBC 3.15 L Hgb 11.1 L Hct 34.3 L MCV 108.9 H MCH 35.2 H MCHC 32.4 RDW Std Deviation 67.3 H RDW Coeff of Mihaela 16.6 H Plt Count 166 MPV 11.5 Immature Gran % (Auto) 0.400 Neut % (Auto) 74.7 H Lymph % (Auto) 14.5 L [place] % (Auto) 9.8 Eos % (Auto) 0.4 Baso % (Auto) 0.2 Absolute Neuts (auto) 7.0 Absolute Lymphs (auto) 1.36 Nucleated RBC % 0 Anisocytosis 1+ Sodium 135 L Potassium 5.2 H Chloride 96 L Carbon Dioxide 29.0 Anion Gap 10 BUN 32 H Creatinine 4.84 H Estim Creat Clear Calc 11.09 Est GFR (MDRD) Af Amer 15 L Est GFR (MDRD) Non-Af 12 L BUN/Creatinine Ratio 6.6 L Glucose 98 Lactic Acid 3.2 H* Calcium 10.1 Total Bilirubin 1.20 H AST 25 ALT 21 Alkaline Phosphatase 84 Troponin I High Sens 15 Total Protein 7.5 Albumin 3.5 Globulin 4.0 Albumin/Globulin Ratio 0.9 Radiography Diagnostic Testing: Clinical Impression(s) from Imaging Studies Chest X-Ray 08/05/23 13:50 IMPRESSION: Indeterminate 3.7 cm round opacity within the right upper lung concerning for an underlying mass, recommend chest CT for further characterization. Ill-defined opacities within the lower lungs may be secondary to pneumonia and/or atelectasis, cannot exclude an associated left pleural effusion. Electronically Signed: Gissell Erwin MD at 14:16 EDT , Chest CT 08/05/23 14:39 IMPRESSION: 2.4 cm x 2.2 cm mass in the peripheral posterior aspect of the right upper lobe. Bilateral pleural effusions right greater than left with bibasilar infiltration and/or atelectasis. Enlarged left axillary lymph nodes. Electronically Signed: Samson Bob MD at 15:30 EDT , EKG Sinus rhythm with PACs.: Attestation: I personally reviewed and interpreted this EKG as follows: Interpretation: Sinus Rhythm Comments: EKG shows sinus rhythm with premature atrial complexes, rate of 65 bpm, KS 172 ms, QRS duration 88 ms, no acute ST elevation, no acute infarct noted Treatment and Re-Evaluation :: Patient arrives in moderate distress secondary to shortness of breath. This shortness of breath started after the patient's hemodialysis today. Patient received a full septic work-up was revealing 2 sets of blood cultures, chest x-ray, lactic acidosis. Patient will receive basic laboratory values. Differential diagnosis includes viral-like illness including COVID-19 or influenza. Differential also includes CHF exacerbation, COPD exacerbation, pneumonia. All radiologic examinations were read, reviewed by the emergency department attending. From these reads, a plan of care will be put in place. Patient on 4 L nasal cannula patient is [id number]%. Patient's x-ray shows indeterminate 3.7 cm round opacity within the right upper lung concerning for underlying mass. CT is recommended. Ill-defined opacities within the lower lungs may be secondary to pneumonia and/or atelectasis, cannot exclude an associated left pleural effusion. Patient did respond well to the breathing treatments. Patient did have lactic acidosis patient's lactic was 3.2. Patient was given 500 cc of normal saline. Started IV Rocephin, Zithromax. Spoke with hospitalist, patient will need to be admitted to the hospital. All questions answered. Patient stable for admission <Dr. Landy Boyd, DO - Last Filed: 08/05/23 17:27> [facility] Lab Data Attestation: I reviewed the patient's lab results. Labs: Laboratory Results - last 24 hr 08/05/23 08/05/23 12:59 13:40 WBC 9.4 RBC 3.15 L Hgb 11.1 L Hct 34.3 L MCV 108.9 H MCH 35.2 H MCHC 32.4 RDW Std Deviation 67.3 H RDW Coeff of Mihaela 16.6 H Plt Count 166 MPV 11.5 Immature Gran % (Auto) 0.400 Neut % (Auto) 74.7 H Lymph % (Auto) 14.5 L [place] % (Auto) 9.8 Eos % (Auto) 0.4 Baso % (Auto) 0.2 Absolute Neuts (auto) 7.0 Absolute Lymphs (auto) 1.36 Nucleated RBC % 0 Anisocytosis 1+ Sodium 135 L Potassium 5.2 H Chloride 96 L Carbon Dioxide 29.0 Anion Gap 10 BUN 32 H Creatinine 4.84 H Estim Creat Clear Calc 11.09 Est GFR (MDRD) Af Amer 15 L Est GFR (MDRD) Non-Af 12 L BUN/Creatinine Ratio 6.6 L Glucose 98 Lactic Acid 3.2 H* Calcium 10.1 Total Bilirubin 1.20 H AST 25 ALT 21 Alkaline Phosphatase 84 Troponin I High Sens 15 Total Protein 7.5 Albumin 3.5 Globulin 4.0 Albumin/Globulin Ratio 0.9 Radiography Chest X-Ray - ED: 1 View, Read by ED Physician, Read by Radiologist, Chronic Changes and Left Infiltrate Diagnostic Testing: Clinical Impression(s) from Imaging Studies Chest X-Ray 08/05/23 13:50 IMPRESSION: Indeterminate 3.7 cm round opacity within the right upper lung concerning for an underlying mass, recommend chest CT for further characterization. Ill-defined opacities within the lower lungs may be secondary to pneumonia and/or atelectasis, cannot exclude an associated left pleural effusion. Electronically Signed: Gissell Erwin MD at 14:16 EDT , Chest CT 08/05/23 14:39 IMPRESSION: 2.4 cm x 2.2 cm mass in the peripheral posterior aspect of the right upper lobe. Bilateral pleural effusions right greater than left with bibasilar infiltration and/or atelectasis. Enlarged left axillary lymph nodes. Electronically Signed: Samson Bob MD at 15:30 EDT , Treatment and Re-Evaluation :: Patient arrives in moderate distress secondary to shortness of breath. This shortness of breath started after the patient's hemodialysis today. Patient received a full septic work-up was revealing 2 sets of blood cultures, chest x-ray, lactic acidosis. Patient will receive basic laboratory values. Differential diagnosis includes viral-like illness including COVID-19 or influenza. Differential also includes CHF exacerbation, COPD exacerbation, pneumonia. All radiologic examinations were read, reviewed by the emergency department attending. From these reads, a plan of care will be put in place. Patient on 4 L nasal cannula patient is 91-92%. Patient's x-ray shows indeterminate 3.7 cm round opacity within the right upper lung concerning for underlying mass. CT is recommended. Ill-defined opacities within the lower lungs may be secondary to pneumonia and/or atelectasis, cannot exclude an associated left pleural effusion. Patient did respond well to the breathing treatments. Patient did have lactic acidosis patient's lactic was 3.2. Patient was given 500 cc of normal saline. Started IV Rocephin, Zithromax. Spoke with hospitalist, patient will need to be admitted to the hospital. All questions answered. Patient stable for admission I have personally performed a face to face assessment of the patient and have reviewed the CASIMIRO Note. I performed a substantive portion of the visit including all aspects of the following. My alegria findings include: History is patient is an 82-year-old male with multiple comorbidities including CHF, cardiomyopathy, end-stage renal disease on hemodialysis (had dialysis earlier today but stopped 30 minutes early due to shortness of breath), type 2 diabetes mellitus, hypertension and atrial fibrillation presenting with worsening shortness of breath and generalized weakness. Patient wears 2 L of oxygen as needed however he is currently 90% on 2 L. Patient does have quite coarse breath sounds and is given stacked breathing treatments as well as Solu-Medrol. Differential does include fluid overload (I suspect this is less likely), COPD exacerbation as well as pneumonia. Chest x-ray is concerning for left lower lobe infiltrate. He is given broad-spectrum antibiotics, Rocephin and azithromycin for this. Given his increased O2 requirements as well as generalized weakness as well as poor protoplasm I do think he benefit from admission. Patient is given a small fluid bolus as clinically I suspect he is more dehydrated and does have an elevated lactate. This could be from sepsis versus ischemia associated from hypoxia. As he is end-stage renal disease I do not want to give him a 30 cc/kg fluid bolus. Case discussed with Dr. Hamilton, hospitalist. He is agreeable with admission. Other additions or changes: [None] Discharge Plan Dx/Rx/DC Orders Clinical Impression: Respiratory failure, Hypoxia, Acidosis, lactic, Lung mass, Community acquired pneumonia Disposition Disposition: Acute Care Hospital [facility] Discharge Date/Time: 08/05/23 16:20
[2023-08-05] MEDS: MethylPREDNISolone 125 MG/2 ML Vial IV (13:31)
[2023-08-05 13:38] LABS: Absolute Lymphocyte Count 1.36 X10^3/uL (0.83-4.51); Basophil# 0.02 X10^3/uL; Basophil% 0.2 % (0-1); Eosinophil# 0.04 X10^3/uL; Eosinophils% 0.4 % (0-5); Hematocrit 34.3 % (40-54); Hemoglobin 11.1 g/dL (13.0-16.5); Lymphocyte # 1.36 X10^3/ul (0.83-4.51); Lymphocyte % 14.5 % (19-41); Mean Corp Hgb Conc 32.4 g/dL (32-36); Mean Corpuscular Hgb 35.2 pg (27.0-32.0); Mean Corpuscular Volume 108.9 fL (80-94); Mean Platelet Vol. 11.5 fl (6.2-12.0); Monocyte# 0.92 X10^3/uL; Monocyte% 9.8 % (0-10); NRBC Flagged by Analyzer 0 % (0-5); Neutrophil % 74.7 % (47-70); POSITIVE MORPHOLOGY YES; Platelet Count 166 K/mm3 (150-450); RBC Distribution Width CV 16.6 % (11.6-14.6); RBC Distribution Width SD 67.3 fl (35.1-43.9); Red Blood Count 3.15 M/mm3 (4.6-6.2); White Blood Count 9.4 K/mm3 (4.4-11.0)
[2023-08-05 13:40] LABS: Differential Indicated SCAN CRITERIA MET
--- NOTE | 2023-08-05 13:50 | RAD_ITS ---
INDICATION: cough EXAMINATION/TECHNIQUE: X-RAY - XR Chest 1 View COMPARISON: May 26, 2023 FINDINGS: LINES/DEVICES: None. LUNGS: There is a persistent round 3.7 cm opacity within the right upper/mid lung. There are ill-defined opacities within the lower lungs associated with obscuration of the left hemidiaphragm. No pneumothorax. MEDIASTINUM AND CARDIOVASCULAR STRUCTURES: Cardiac silhouette not enlarged. Central airways and mediastinal contour are unremarkable. BONES AND SOFT TISSUES: Unremarkable. RAD/Chest 1 View (Portable) IMPRESSION: Indeterminate 3.7 cm round opacity within the right upper lung concerning for an underlying mass, recommend chest CT for further characterization. Ill-defined opacities within the lower lungs may be secondary to pneumonia and/or atelectasis, cannot exclude an associated left pleural effusion. Electronically Signed: Gissell Erwin MD at 14:16 EDT ,
[2023-08-05 13:56] LABS: ALB/GLOB Ratio 0.9 RATIO (0.9-2.4); AST(SGOT) 25 U/L (15-37); Alanine Aminotransfer ALT/SGPT 21 U/L (16-61); Albumin, Serum 3.5 g/dL (3.2-5.0); Alkaline Phosphatase 84 U/L (45-117); Anion Gap 10 (5-15); BUN 32 mg/dL (7-18); BUN/Creat Ratio 6.6 RATIO (10-20); Calcium,Total 10.1 mg/dL (8.5-10.1); Chloride 96 mmol/L (98-107); Creatinine, Serum 4.84 mg/dL (0.70-1.30); EST Glomerular Filtration Rate 12 mL/min (>60); Est Glom Filt Rate - Afr Amer 15 mL/min (>60); Estimated Creatinine Clearance 11.09 ml/min; Glucose 98 mg/dL (74-106); Potassium 5.2 mmol/L (3.5-5.1); Protein, Total 7.5 g/dL (6.4-8.2); Sodium Level 135 mmol/L (136-145); Troponin-I HS (w/2H Reflex) 15 pg/mL (3.0-78.0)
[2023-08-05 14:03] LABS: Anisocytosis 1+
[2023-08-05 14:23] LABS: Lactic Acid 3.2 mmol/L (0.4-1.9)
--- NOTE | 2023-08-05 14:39 | CT_ITS ---
STUDY: CT CHEST WITHOUT CONTRAST REASON FOR EXAM: Male, 82 years old. Cough. Shortness of breath with wheezing. Possible pulmonary mass. RADIATION DOSAGE (If Supplied By Facility): CTDIvol = ( 13.22 ) mGy, DLP = ( 469 ) mGycm TECHNIQUE: Transaxial imaging was performed without the administration of intravenous contrast material. Multiplanar coronal and sagittal images were reformatted. Individualized dose optimization techniques were used for this CT. COMPARISON: Comparison is made with prior chest radiograph done earlier in the day. FINDINGS: CHEST Mild enlargement of the left axillary lymph nodes. There is a 2.4 cm x 2.2 cm mass in the peripheral posterior aspect of the right upper lobe. Bilateral pleural effusions right greater than left with bibasilar atelectasis and/or infiltrates. There are calcifications of the coronary arteries. Normal mediastinum. Normal hilar regions. Normal unenhanced pulmonary arteries. There is atherosclerotic calcification of the aortic arch with tortuosity and elongation of the aortic arch and descending thoracic aorta. There are multi-level degenerative changes of the thoracic spine. Osteoarthritis of both shoulder joints worse on the right side. There is no demonstrated abnormality of the visualized upper abdomen. CT/Chest without Contrast IMPRESSION: 2.4 cm x 2.2 cm mass in the peripheral posterior aspect of the right upper lobe. Bilateral pleural effusions right greater than left with bibasilar infiltration and/or atelectasis. Enlarged left axillary lymph nodes. Electronically Signed: Samson Bob MD at 15:30 EDT ,
[2023-08-05] MEDS: 0.9% Normal Saline (500mL Bag) 500 ML 999 ML IV (14:44)
--- NOTE | 2023-08-05 14:44 | PCM.HP.STD ---
HPI - General General Date of Admission: 08/05/23 Date of Service: 08/05/23 Chief Complaint: SOB HPI Narrative ABEL SOLIS, is a 82 M who presented to the emergency department with the hospital on 08/05/2023 with chief complaint of shortness of breath and wheezing following his dialysis session. He reported that it started acutely at the end of his dialysis session. Patient states he started feeling congested yesterday in the evening, but was not short of breath. Stated he was at dialysis and at the end of his dialysis session he started having shortness of breath and wheezing. He has a chronic cough that has not really changed. No change in sputum production. He denies any fever or chills. He currently resides at [facility] and states that his roommate has had a cough but is unclear if he has a diagnosis of any respiratory viruses or otherwise. He denies any rhinorrhea or nasal congestion, pharyngitis, chest pain, hemoptysis, fever or chills, nausea or vomiting, change in bowels or myalgias. He still smokes however his last use he reports is about 1 week ago. He does report that he has had previous need for thoracentesis. It appears that his last dose of Plavix was this morning on 08/05/2023. Patient states he intermittently wears oxygen when he feels like he needs it at 2 L nasal cannula. Vital signs on presentation show his temperature at 98 degrees, pulse 63, blood pressure 164/53, respiratory was 20 and oxygen saturation was 88% on on 2 L nasal cannula per documentation from emergency room to physician. BC shows no elevated white count however he does have a very mild left shift. He has a chronic stable and normal platelet value. His chemistry panel showed chronic stable hyponatremia with a sodium of 135, mild hyperkalemia with potassium of 5.2, elevated BUN/creatinine which are stable as patient is dialysis dependent at baseline. His glucose was 98. Her function is Liver function is normal. normal. Initial troponin was 15. His lactic acid was 3.2 and I suspect this is related to hypoxemia. Chest x-ray was performed and showed a 3.7 cm round opacity in the right upper lobe concerning for underlying mass and ill-defined opacities in the lower lung jacobson that appear consistent with pleural effusions. I ordered a CT of his chest to better image this mass and the opacities and this revealed a 2.4 x 2.2 mass in the peripheral posterior aspect of the right upper lobe and an enlarged left-sided lymph node in the axillary region as well as bilateral pleural effusions right greater than left with compressive atelectasis. His EKG was unremarkable for any acute finding and shows nonspecific T wave changes in the lateral leads with normal intervals and rate. I reviewed the CT with pulmonary medicine and they do anticipate that this is a malignancy especially with his history of tobacco abuse. Dr. Mclean recommended initial thoracentesis for cytology and if this is unrevealing patient will need a CT-guided biopsy of the upper lobe. His last Plavix dose was on 08/05/2020 3 in the AM prior to arrival in the emergency department. [facility] Medical History Anemia Asthma Atrial fibrillation Benign essential HTN Brain aneurysm Chronic renal failure, stage 5 Closed head injury Colon polyps COPD (chronic obstructive pulmonary disease) CVA (cerebral vascular accident) Diabetes Dialysis complication Dialysis patient Fall Febrile illness, acute Fistula HCAP (healthcare-associated pneumonia) Hepatitis C History of GI bleed Hyperlipemia Hyponatremia Leukocytosis LFT elevation Metabolic encephalopathy Multifocal pneumonia NSTEMI, initial episode of care Pneumonia Problem with dialysis access PVD (peripheral vascular disease) Sleep apnea TIA (transient ischemic attack) Tobacco use disorder Troponin level elevated Type II diabetes mellitus, uncontrolled Home Medications acetaminophen 325 mg tablet (Tylenol) 650 mg PO Q4H PRN PRN Pain Score 1-10/Temp > 100.7 F 10/10/21 [History Last Taken Unknown] ammonium lactate 12 % lotion 1 applic topical TID dry skin 02/17/22 [History Last Taken Unknown] bisacodyl 10 mg rectal suppository 10 mg NC DAILY PRN Constipation 02/17/22 [History Last Taken Unknown] calcium acetate(phosphat bind) 667 mg capsule 1,334 mg PO TID binder 02/17/22 [History Last Taken Unknown] loperamide 2 mg capsule 2 mg PO Q6H PRN Diarrhea 02/17/22 [History Last Taken Unknown] triamcinolone acetonide 0.1 % topical cream 1 applic topical BID PRN psoriasis 02/17/22 [History Last Taken Unknown] amlodipine 5 mg tablet 5 mg PO BID blood pressure 05/26/23 [History Last Taken Unknown] carvedilol 3.125 mg tablet 12.5 mg PO BID heart health 05/26/23 [History Last Taken Unknown] clopidogrel 75 mg tablet (Plavix) 75 mg PO DAILY antiplatelet 05/26/23 [History Last Taken Unknown] cholecalciferol (vitamin D3) 125 mcg (5,000 unit) tablet (Vitamin D3) 125 mcg PO .monthly 07/24/23 [History Last Taken Unknown] clonidine HCl 0.2 mg tablet 0.2 mg PO DAILY PRN hypertensive emergency 07/24/23 [History Last Taken Unknown] guaifenesin 100 mg/5 mL oral liquid 200 mg PO Q6H PRN cough 07/24/23 [History Last Taken Unknown] insulin lispro 100 unit/mL subcutaneous pen (Humalog KwikPen (U-100) Insulin) 1 sliding scale dose subcut TID 07/24/23 [History Last Taken Unknown] nut.tx.imp.renal fxn,lac-reduc 0.08 gram-1.8 kcal/mL oral liquid (Nepro Carb Steady) 120 ml PO DAILY 07/24/23 [History Last Taken Unknown] potassium chloride 10 mEq capsule,extended release 20 meq PO DAILY 07/24/23 [History Last Taken Unknown] Allergy/AdvReac Type Severity Reaction Status Date / Time milk Allergy Intermediate Diarrhea Verified 08/05/23 12:53 varenicline tartrate Allergy makes me Verified 08/05/23 12:53 [From Chantix] weird, hallucinations Family History Mother CVA (cerebral vascular accident) Diabetes Hypertension Father Colon cancer Diabetes Brother Diabetes Surgical History history insertion dialysis catheter (~11/04/20) History of cataract extraction History of colectomy History of colonoscopy (~06/2020) History of surgery on left wrist History of vein stripping Social History (Updated 08/05/23 @ 15:[address] Kaley Hamilton DO) housing: [facility] Smoking Status: Light Smoker (<10/day) alcohol intake: former details: Patient quit using alcohol 14 years ago substance use type: does not use ROS Constitutional Constitutional: Denies anorexia, change in weight, chills, fatigue, fever(s), malaise, night sweats, weakness or other Eyes Eyes: Denies blurry vision, change in eye color, change in vision, discharge from eye(s), double vision, erythema, eye pain, loss of vision or other ENT HEENT: Denies abnormal hearing, dysphagia, ear pain, epistaxis, headache(s), hearing loss, nasal congestion, nasal discharge, post nasal drip, sinus pressure, sore throat or other Cardiovascular Cardiovascular: Denies chest pain, claudication, dyspnea on exertion, edema, lightheadedness, orthopnea, palpitations, paroxysmal nocturnal dyspnea, rapid heart rate, syncope or other Respiratory/Chest Respiratory/Chest: Reports cough, dyspnea, shortness of breath at rest, shortness of breath with exertion and wheezing Gastrointestinal Gastrointestinal: Denies abdominal pain, coffee ground emesis, constipation, diarrhea, dyspepsia, hematemesis, hematochezia, loose stools, melena, nausea, vomiting or other Genitourinary Genitourinary: Denies burning urination, difficulty urinating, dysuria, hematuria, nocturia, urinary frequency, urinary hesitancy, urinary incontinence, urinary urgency or other Musculoskeletal Musculoskeletal: Reports joint pain and joint stiffness; Denies arthralgias, back pain, joint swelling, myalgias, neck pain or other Neurologic Neurologic: Denies abnormal gait, abnormal speech, confusion, disequilibrium, dizziness, focal weakness, headache(s), numbness, paresthesias, seizure-like activity, seizures, syncope, tingling, tremor(s) or other Psychiatric Psychiatric: Denies anxiety, depression, homicidal ideation, suicidal ideation or other Endocrine Endocrinology: Denies change in body appearance, cold intolerance, excessive sweating, heat intolerance, polydipsia, polyuria or other Hematologic/Lymphatic Hematologic/Lymphatic: Denies anemia, easy bleeding, easy bruising, lymphadenopathy or other Allergic/Immunologic Allergic/Immunologic: Denies rhinitis, hives, eczemia, asthma or other Vital Signs Vital Signs Vital Signs: 08/05/23 12:48 08/05/23 12:58 08/05/23 13:41 Temperature 98 F Temperature Source Oral Pulse Rate 63 Respiratory Rate 20 H Respiratory Effort Normal Respiratory Depth Normal Respiratory Pattern Normal Blood Pressure 164/53 H Blood Pressure Mean 90 Pulse Ox 90 Oxygen Delivery Method Room Air Nasal Cannula Nasal Cannula Oxygen Flow Rate (L/min) 2 3 08/05/23 13:19 08/05/23 13:19 Temperature Temperature Source Pulse Rate 66 Respiratory Rate 20 H Respiratory Effort Respiratory Depth Respiratory Pattern Normal Blood Pressure Blood Pressure Mean Pulse Ox 96 Oxygen Delivery Method Nasal Cannula Oxygen Flow Rate (L/min) 9 Weight Weight: 64.4 kg Body Mass Index (BMI) 20.9 Physical Exam Const alert, oriented x3 and no apparent distress Constitutional Narrative: Thin, older, white male, sitting up in bed currently on oxygen at 4 L nasal cannula, no signs of respiratory distress at this time, appears chronically ill General Appearance: cooperative HEENT normocephalic, head/scalp atraumatic and moist oral mucous membranes HEENT Narrative: Dentition is fair, Mallampati is 2, no thrush, mild to moderate hearing loss Eyes PERRL, EOMs intact bilaterally and conjunctivae normal Eyes Narrative: No scleral icterus Neck no lymphadenopathy and supple Neck Narrative: Trachea midline, no thyroid enlargement Resp no retractions, no use of accessory muscles and No clear to auscultation bilaterally Resp Narrative: Diffuse inspiratory and end expiratory wheeze, slight tachypnea with no signs of extremis Auscultation: wheezes; Negative for rales or rhonchi Cardio regular rate, regular rhythm, S1 normal heart sound, S2 normal heart sound, no murmurs, no rub, no gallops and no clicks GI normal to inspection, nondistended, normoactive bowel sounds, soft to palpation and non-tender Extremity Extremity Narrative: No clubbing or cyanosis, slight left upper extremity swelling, fistula left upper extremity with bruit and thrill, no other edema identified Skin Skin Narrative: Wound left foot with previous second digit removal but appears to be healing well Neuro oriented x3, CN's II-XII intact bilaterally, moves all extremities and no focal motor deficits Neuro Narrative: Significant generalized weakness noted Sensorium / Orientation: awake, alert, oriented to person, oriented to place and oriented to time Speech: speech normal Motor Exam: Negative for strength 5/5 throughout Psych affect normal Psych Narrative: pleasant, patient interacts appropriately Results Lab / Micro Data Attestation: I reviewed the patient's lab results. 08/05/23 12:59 08/05/23 12:59 Labs: Laboratory Results - last 24 hr 08/05/23 12:59: WBC 9.4, RBC 3.15 L, Hgb 11.1 L, Hct 34.3 L, MCV 108.9 H, MCH 35.2 H, MCHC 32.4, RDW Std Deviation 67.3 H, RDW Coeff of Mihaela 16.6 H, Plt Count 166, MPV 11.5, Immature Gran % (Auto) 0.400, Neut % (Auto) 74.7 H, Lymph % (Auto) 14.5 L, [place] % (Auto) 9.8, Eos % (Auto) 0.4, Baso % (Auto) 0.2, Absolute Neuts (auto) 7.0, Absolute Lymphs (auto) 1.36, Nucleated RBC % 0, Anisocytosis 1+, Sodium 135 L, Potassium 5.2 H, Chloride 96 L, Carbon Dioxide 29.0, Anion Gap 10, BUN 32 H, Creatinine 4.84 H, Estim Creat Clear Calc 11.09, Est GFR (MDRD) Af Amer 15 L, Est GFR (MDRD) Non-Af 12 L, BUN/Creatinine Ratio 6.6 L, Glucose 98, Calcium 10.1, Total Bilirubin 1.20 H, AST 25, ALT 21, Alkaline Phosphatase 84, Troponin I High Sens 15, Total Protein 7.5, Albumin 3.5, Globulin 4.0, Albumin/Globulin Ratio 0.9 08/05/23 13:40: Lactic Acid 3.2 H* Micro: Microbiology 08/05/23 13:40 Nasal Secretion SARS-CoV-2 & FLU Antigen (Rapid) - Final Radiology Impression Chest X-Ray 08/05/23 13:50 IMPRESSION: Indeterminate 3.7 cm round opacity within the right upper lung concerning for an underlying mass, recommend chest CT for further characterization. Ill-defined opacities within the lower lungs may be secondary to pneumonia and/or atelectasis, cannot exclude an associated left pleural effusion. Electronically Signed: Gissell Erwin MD at 14:16 EDT , Assessment & Plan Assessment/Plan (1) Shortness of breath: (2) Hypoxia: (3) Hyperkalemia: (4) Lactic acidosis: (5) Abnormal chest x-ray: PLAN: Plan Acute hypoxia with shortness of breath -At baseline wears 2 L as needed -Sats on 2 L were 88% on presentation -Oxygenation has improved on -Wean as able -Check ambulatory pulse ox prior to discharge -CT of the chest pending -Chest x-ray shows bilateral lower lung effusions--> pneumonia very unlikely as patient has no elevated white count or fever and onset was acute -Was given 1 dose of azithromycin and ceftriaxone in the emergency department however will hold on antibiotics at this time -Aggressive of pulmonary toilet -IV Solu-Medrol 40 every 8 -COVID and flu panel are negative -Respiratory viral panel -Check strep pneumo and Legionella antigens -ABG pending checking for CO2 retention with history of COPD and hyperkalemia Abnormal chest x-ray -Imaging done today and on 05/26/2023 both show a right upper lung mass that was not there on previous imaging. -No follow-up CT had been performed -Patient does have significant tobacco abuse history and is still actively smoking at this time -Stat CT of the chest was obtained and shows bilateral pleural effusions right greater than left as well as a right spiculated mass in the right upper lung -Discussed case with pulmonology and they recommended getting a thoracentesis first and if positive for malignant cells biopsy would not need to be pursued however if negative will need right upper lobe CT-guided biopsy -We will hold Plavix Lactic acidosis -Likely related to hypoxemia and elevated serum creatinine baseline with decreased clearance -Doubt this is related to sepsis picture -We will trend per protocol but anticipate improvement with oxygen supplementation Hyperkalemia -Check ABG to rule out acidosis as patient did have dialysis today and this should be resolved -It is mild so I will take no direct intervention at this time and repeat BMP in a.m. -Patient was given 500 cc of IV fluid in the emergency department -We will hold potassium supplementation if patient is currently on any once medications are verified Chronic anemia secondary to end-stage renal disease -Counts are stable -Continue to monitor Chronic hyponatremia -Currently mild at 135 -Volume management with dialysis Left foot diabetic foot wound -Follows with [facility] podiatry and the wound center -Previous left second digit amputation -Vascular studies have been ordered -Recent debridement on 07/24/2023 by podiatry -Is on doxycycline 100 mg p.o. twice daily for 14 days which was started on 07/24/2023 with a stop date of 08/07/2023 -Culture shows staph epi with resistance to quinolones -Consult wound care DM-2 -Patient is currently not taking any medication for his diabetes but he has been having elevated blood sugars at home -Last hemoglobin was A1c was 5.9 on 05/13/2023 -He required some basal insulin with steroid use but will monitor for now -SSI -Max End-stage renal disease on HD -MWF HD -Continue home phosphate binder and daily vitamin -Consult nephrology-Dr. Hamilton Chronic systolic heart failure -Last echocardiogram was performed Chronic macrocytic anemia -Hemoglobin appears to be stable when compared to previous and actually uptrending Hypertension -Continue home medication once verified Hyperlipidemia -It does not appear patient is currently on any regimen for hyperlipidemia -Recommend outpatient follow-up History of stroke -We will hold Plavix for now given need for thoracentesis and possible lung nodule biopsy History of GOKUL -Continue home CPAP Debility -Consult PT/OT -Patient is currently residing at [facility] may need pre-CERT to return -We will consult social work/corrections caseworker History of colon cancer status post colectomy -Hemoglobin stable -No current issues Tobacco abuse -Last use was about a week ago -Patient defers need for any nicotine replacement therapy stating it will make him crazy History of alcohol abuse -Last use was 14 years ago DVT prophylaxis -Subcu heparin 3 times daily CODE STATUS -Code is verified with patient on admission and also reviewed from his facility paperwork Charges/Coding Visit Charges Inpatient E&M: 20641 Init Hosp L3
[2023-08-05] MEDS: Ceftriaxone 1 GM/50 ML BAG IV (15:25)
--- NOTE | 2023-08-05 15:28 | NURSING ---
322 DEANNA RESP FAILURE, HYPOXIA, COPD EXAC, LACTIC ACIDOSIS
[2023-08-05 15:35] LABS: Reflex Troponin-HS? (from REC) Y
[2023-08-05 15:46] LABS: Base Excess 2 mmol/L (-2 to +2); Bicarbonate 25.3 mmol/L (22-26); Blood Gas Specimen Type ART; Mode Not entered; O2 Delivery Device HFNC; PO2 28 mmHG (75-100); SITE R Radial; SO2 58 % (95-99); Total Carbon Dioxide 26 mmol/L; pCO2 33.6 mmHg (35-45); pH 7.48 (7.35-7.45)
[2023-08-05] MEDS: Azithromycin 500 MG in Dextrose 5%-Water (250mL Bag) 250 ML 250 MG IV (15:47)
[2023-08-05 16:04] LABS: Troponin-I HS 16 pg/mL (3.0-78.0)
[2023-08-05 17:45] LABS: Reflex Lactate? Y
--- NOTE | 2023-08-05 19:30 | NURSING ---
late entry. droplet precautions started at 1930 due to pending test.
[2023-08-05 19:38] LABS: Lactic Acid 1.8 mmol/L (0.4-1.9)
--- NOTE | 2023-08-05 21:45 | CPS ---
Patient refusing CPAP
[2023-08-05] MEDS: Carvedilol 12.5 MG Tablet PO (22:21)
[2023-08-05] MEDS: amLODIPine 5 MG Tablet PO (22:21)
[2023-08-05] MEDS: guaiFENesin 1,200 MG Tablet 1200 MG PO (22:21)
[2023-08-05] MEDS: Heparin Injection (Vial) 5,000 UNIT/ML VIAL 5000 UNIT SC (22:27)
[2023-08-05] MEDS: Ammonium Lactate 225 gm Bottle 1 APPLIC TOPICAL (22:29)
[2023-08-05] MEDS: 0.9% Saline Lock 10 ML Syringe IV (22:31)
[2023-08-05] MEDS: Methylprednisolone Sod Succ 40 MG/ML VIAL IV (22:31)
[2023-08-06] VITALS (29 sets, daily range): BP systolic 123–287; BP diastolic 39–85; PULSE 56–83; RESP 16–24; TEMP 36.6–36.8; O2SAT 90–99; BMI 20.2; BMI 19.3
[2023-08-06] MEDS: Ipratropium/Albuterol Sulfate 3 ML AMPUL.NEB INHALATION ×5 (02:32→22:56)
[2023-08-06] MEDS: 0.9% Saline Lock 10 ML Syringe IV ×2 (06:24→15:06)
[2023-08-06] MEDS: Methylprednisolone Sod Succ 40 MG/ML VIAL IV ×3 (06:24→21:56)
[2023-08-06] MEDS: Heparin Injection (Vial) 5,000 UNIT/ML VIAL 5000 UNIT SC ×3 (06:26→21:55)
[2023-08-06] MEDS: Ammonium Lactate 225 gm Bottle 1 APPLIC TOPICAL ×3 (06:27→21:56)
[2023-08-06 07:30] LABS: Absolute Lymphocyte Count 0.67 X10^3/uL (0.83-4.51); Absolute Neutrophil Count 5.1 X10^3/uL (2.0-7.7); Lymphocyte # 0.67 X10^3/ul (0.83-4.51); Lymphocyte % 11.3 % (19-41); Mean Corp Hgb Conc 32.3 g/dL (32-36); Mean Corpuscular Hgb 35.2 pg (27.0-32.0); Mean Corpuscular Volume 109.2 fL (80-94); Mean Platelet Vol. 11.9 fl (6.2-12.0); Monocyte# 0.16 X10^3/uL; Monocyte% 2.7 % (0-10); NRBC Flagged by Analyzer 0 % (0-5); Neutrophil % 85.7 % (47-70); POSITIVE MORPHOLOGY YES; Platelet Count 160 K/mm3 (150-450); RBC Distribution Width CV 16.4 % (11.6-14.6); RBC Distribution Width SD 66.1 fl (35.1-43.9); Red Blood Count 2.84 M/mm3 (4.6-6.2)
[2023-08-06 07:33] LABS: Differential Indicated SCAN CRITERIA MET
--- NOTE | 2023-08-06 07:54 | PCM.PN.HOSP ---
Reason for Visit Reason for Visit: Diagnoses Acidosis, unspecified (08/05/23) Hyperkalemia (08/05/23) Shortness of breath (08/05/23) Hypoxemia (08/05/23) Abnormal findings on diagnostic imaging of other specified body structures (08/05/23) Subjective Subjective Feels well presently. Objective Data Objective Data Vital Signs: Vital Signs Temp Pulse Resp BP Pulse Ox O2 Del Method O2 Flow Rate 36.6 C 56 L 18 123/77 H 92 High Flow 3 08/06/23 04:06 08/06/23 04:06 08/06/23 04:06 08/06/23 04:06 08/06/23 06:31 08/06/23 06:31 08/06/23 06:31 Oxygen Flow Rate (L/min) 3 Oxygen Delivery Method High Flow Weight: 61.8 kg Body Mass Index (BMI) 20.1 Intake & Output: Intake and Output for Last 24 Hours 08/04/23 08/05/23 08/06/23 23:59 23:59 23:59 Intake Total 1105 / 1105 100 / 100 Balance 1105 / 1105 100 / 100 Lab / Micro Data 08/06/23 06:45 08/06/23 06:45 Labs: Laboratory Results - last 24 hr 08/05/23 12:59: WBC 9.4, RBC 3.15 L, Hgb 11.1 L, Hct 34.3 L, MCV 108.9 H, MCH 35.2 H, MCHC 32.4, RDW Std Deviation 67.3 H, RDW Coeff of Mihaela 16.6 H, Plt Count 166, MPV 11.5, Immature Gran % (Auto) 0.400, Neut % (Auto) 74.7 H, Lymph % (Auto) 14.5 L, [place] % (Auto) 9.8, Eos % (Auto) 0.4, Baso % (Auto) 0.2, Absolute Neuts (auto) 7.0, Absolute Lymphs (auto) 1.36, Nucleated RBC % 0, Anisocytosis 1+, Sodium 135 L, Potassium 5.2 H, Chloride 96 L, Carbon Dioxide 29.0, Anion Gap 10, BUN 32 H, Creatinine 4.84 H, Estim Creat Clear Calc 11.09, Est GFR (MDRD) Af Amer 15 L, Est GFR (MDRD) Non-Af 12 L, BUN/Creatinine Ratio 6.6 L, Glucose 98, Calcium 10.1, Total Bilirubin 1.20 H, AST 25, ALT 21, Alkaline Phosphatase 84, Troponin I High Sens 15, Total Protein 7.5, Albumin 3.5, Globulin 4.0, Albumin/Globulin Ratio 0.9 08/05/23 13:40: Lactic Acid 3.2 H* 08/05/23 15:29: Troponin I High Sens 16 08/05/23 19:05: Lactic Acid 1.8 08/06/23 06:45: WBC 6.0, RBC 2.84 L, Hgb 10.0 L, Hct 31.0 L, MCV 109.2 H, MCH 35.2 H, MCHC 32.3, RDW Std Deviation 66.1 H, RDW Coeff of Mihaela 16.4 H, Plt Count 160, MPV 11.9, Immature Gran % (Auto) 0.300, Neut % (Auto) 85.7 H, Lymph % (Auto) 11.3 L, [place] % (Auto) 2.7, Eos % (Auto) 0.0, Baso % (Auto) 0.0, Absolute Neuts (auto) 5.1, Absolute Lymphs (auto) 0.67 L, Nucleated RBC % 0 Micro: Microbiology 08/05/23 15:05 Mucosa - Nasopharyngeal Respiratory Panel (PCR) - Final Rhinovirus 08/05/23 13:40 Nasal Secretion SARS-CoV-2 & FLU Antigen (Rapid) - Final ABG Data ABG results: ABG 08/05/23 15:39 Specimen Type ART Sample Site R Radial pH 7.48 H Bicarbonate Actual 25.3 Total CO2 26 Base Excess 2 O2 Saturation 58 L O2 % 5.0 ABG pCO2 33.6 L ABG pO2 28 L* O2 Delivery Device HFNC Vent Mode Not entered Crit Call To/Read Back Yes Blood Gas Notified Whom Blood Gas Notified Time 15:40:50 Radiography Diagnostic Testing: Radiology Impression Chest X-Ray 08/05/23 13:50 IMPRESSION: Indeterminate 3.7 cm round opacity within the right upper lung concerning for an underlying mass, recommend chest CT for further characterization. Ill-defined opacities within the lower lungs may be secondary to pneumonia and/or atelectasis, cannot exclude an associated left pleural effusion. Electronically Signed: Gissell Erwin MD at 14:16 EDT , Chest CT 08/05/23 14:39 IMPRESSION: 2.4 cm x 2.2 cm mass in the peripheral posterior aspect of the right upper lobe. Bilateral pleural effusions right greater than left with bibasilar infiltration and/or atelectasis. Enlarged left axillary lymph nodes. Electronically Signed: Samson Bob MD at 15:30 EDT , Physical Exam Const alert and no apparent distress HEENT head/scalp atraumatic and moist oral mucous membranes Resp normal respiratory effort and no retractions Cardio regular rate, regular rhythm, S1 normal heart sound and S2 normal heart sound GI normal to inspection, nondistended, normoactive bowel sounds, soft to palpation, non-tender and non-distended Extremity no clubbing, cyanosis or edema Assessment & Plan Assessment/Plan (1) Pleural effusion: PLAN: Bilateral pleural effusions. R > L Unclear type Pt will need thoracentesis, however, last use of clopidogrel was 08/05 (2) Lung mass: PLAN: Concerning for malignancy Check cytology on thoracentesis, if negative, eventually will require CT-guided biopsy of lung mass. (3) Hypoxia: PLAN: POA 2/2 pleural effusions and rhinovirus Reported 88% on 2l. 28mmHg on ABG (though I suspect it was a VBG) wean oxygen as tolerated. (4) Hyperkalemia: PLAN: ESRD monitor (5) Lactic acidosis: PLAN: likely 2/2 hypoxia. resolved no additional work up. PLAN: Plan Chronic conditions: Chronic anemia secondary to end-stage renal disease-Counts are stable-Continue to monitor Chronic hyponatremia-Currently mild at 135-Volume management with dialysis Left foot diabetic foot wound-Follows with [facility] podiatry and the wound center-Previous left second digit amputation-Recent debridement on 07/24/2023 by podiatry-Is on doxycycline 100 mg p.o. twice daily for 14 days which was started on 07/24/2023 with a stop date of 08/07/2023. Culture shows staph epi with resistance to quinolones-Consult wound care [id number] is currently not taking any medication for his diabetes but he has been having elevated blood sugars at home-Last hemoglobin was A1c was 5.9 on 05/13/2023-He required some basal insulin with steroid use but will monitor for now-SSI End-stage renal disease on HD-MWF HD-Continue home phosphate binder and daily vitamin-Consult nephrology-Dr. Hamilton Chronic systolic heart failure-Last echocardiogram was performed Hypertension-Continue home medication once verified Hyperlipidemia-It does not appear patient is currently on any regimen for hyperlipidemia-Recommend outpatient follow-up History of stroke-We will hold Plavix for now given need for thoracentesis and possible lung nodule biopsy History of GOKUL-Continue home CPAP Debility-Consult PT/OT-Patient is currently residing at [facility] may need pre-CERT to return-We will consult social work/adult protective caseworker History of colon cancer status post colectomy-Hemoglobin stable-No current issues Tobacco abuse-Last use was about a week ago-Patient defers need for any nicotine replacement therapy stating it will make him crazy History of alcohol abuse-Last use was 14 years ago DVT prophylaxis -Subcu heparin 3 times daily CODE STATUS Full code. Discussed with the patient's daughter Jovita about the pleural effusion, follow-up for cytology if that is negative then patient will likely need an outpatient CT-guided biopsy of the lung mass. Greater than 55 minutes of which greater than 50% of time was reviewing the patient's data, evaluating the patient, but also discussing with the patient's daughter over the phone. Charges/Coding Visit Charges Inpatient E&M: 04484 Subs Hosp L3
[2023-08-06] MEDS: Calcium Acetate 667 MG Capsule 1334 MG PO ×3 (08:12→18:39)
[2023-08-06 08:19] LABS: Anisocytosis 1+
[2023-08-06 08:28] LABS: International Normalized Ratio 1.3; Prothrombin Time (Protime)PT. 16.2 SECONDS (11.7-14.9)
[2023-08-06 08:30] LABS: Partial Thromboplast Time 31.9 Seconds (24.1-36.2)
[2023-08-06 08:35] LABS: Anion Gap 9 (5-15); BUN 44 mg/dL (7-18); BUN/Creat Ratio 7.8 RATIO (10-20); Calcium,Total 9.2 mg/dL (8.5-10.1); Chloride 98 mmol/L (98-107); Creatinine, Serum 5.61 mg/dL (0.70-1.30); EST Glomerular Filtration Rate 10 mL/min (>60); Est Glom Filt Rate - Afr Amer 13 mL/min (>60); Estimated Creatinine Clearance 9.18 ml/min; Glucose 245 mg/dL (74-106); Magnesium 2.5 mg/dL (1.6-2.6); Phosphorus 4.9 mg/dL (2.5-4.9); Potassium 6.1 mmol/L (3.5-5.1); Sodium Level 134 mmol/L (136-145)
[2023-08-06] MEDS: 0.9% Normal Saline 1,000 ML IV.SOLN. 1000 ML OPERA.SITE (09:03)
[2023-08-06] MEDS: PureFlow B 2K Dialysis Soln 1 BAG 6 BAG PF (09:03)
[2023-08-06] MEDS: Carvedilol 12.5 MG Tablet PO ×2 (10:04→21:55)
[2023-08-06] MEDS: guaiFENesin 1,200 MG Tablet 1200 MG PO ×2 (10:05→21:56)
[2023-08-06] MEDS: amLODIPine 5 MG Tablet PO ×2 (10:05→21:57)
[2023-08-06] MEDS: Folic Acid/Vitamin B Comp W-C 1 Capsule 1 CAP PO (10:05)
--- NOTE | 2023-08-06 10:06 | PCM.CONS.R ---
Assessment & Plan Assessment/Plan (1) End-stage renal disease on hemodialysis: (2) Hyperkalemia: (3) Lung mass: (4) Shortness of breath: PLAN: Plan This is a pleasant 82-year-old male with past medical history significant for ESRD on hemodialysis via AV fistula who was brought to the emergency room yesterday for evaluation of shortness of breath requiring more oxygen at the custodial. Work-up in the emergency room showed bilateral pleural effusions, lung mass concerning for malignancy. Patient was admitted for further evaluation and treatment. Nephrology consulted for hemodialysis needs. This morning patient's potassium is 6.1, he did have only 2 hours of hemodialysis yesterday. We will plan for dialysis today on 2K bath over the 3.5 hours and attempt fluid removal as patient/blood pressure tolerates. Recommend renal diet. Likely patient will have new lowered target weight by time of discharge. We will evaluate for hemodialysis needs tomorrow. Hemoglobin acceptable at 10.0. Patient to undergo CT-guided biopsy, Plavix on hold. Blood pressures acceptable on Coreg and amlodipine, recommend holding BP meds mornings of dialysis. Further orders forthcoming as hospitalization evolves, thank you for allowing us to participate in the care of Mr. Rodriguez HPI Consult Data Date of Consult: 08/06/23 HPI Narrative HPI Narrative: ABEL RODRIGUEZ, is a 82 M with past medical history significant for ESRD on hemodialysis at [facility] on a Saturday, Saturday, , Saturday schedule who was brought to the emergency room yesterday as patient was noted to have difficulty breathing at custodial and requiring more oxygen. Work-up in the emergency room included chest x-ray which was concerning for right upper lobe mass 3.[address] of chest revealed mass in peripheral posterior aspect of right upper lobe and enlarged left-sided lymph nodes in axillary region. Patient did have partial dialysis yesterday around 2hours. This morning patient reports he is feeling better, feels he is breathing better. Denies any chest pain. Denies any recent nausea or vomiting. [facility] Medical History (Updated 08/06/23 @ 07:[address] Ramana Cantrell, ) Anemia Asthma Atrial fibrillation Benign essential HTN Brain aneurysm Chronic renal failure, stage 5 Closed head injury Colon polyps COPD (chronic obstructive pulmonary disease) CVA (cerebral vascular accident) Diabetes Dialysis complication Dialysis patient Fall Febrile illness, acute Fistula HCAP (healthcare-associated pneumonia) Hepatitis C History of GI bleed Hyperlipemia Hyponatremia Kidney disease Leukocytosis LFT elevation Metabolic encephalopathy Multifocal pneumonia NSTEMI, initial episode of care On home oxygen therapy Pneumonia Problem with dialysis access PVD (peripheral vascular disease) Sleep apnea Smoker TIA (transient ischemic attack) Tobacco use disorder Troponin level elevated Type II diabetes mellitus, uncontrolled Home Medications acetaminophen 325 mg tablet (Tylenol) 650 mg PO Q4H PRN PRN Pain Score 1-10/Temp > 100.7 F 10/10/21 [History Last Taken Unknown] ammonium lactate 12 % lotion 1 applic topical TID dry skin 02/17/22 [History Last Taken Unknown] bisacodyl 10 mg rectal suppository 10 mg MI DAILY PRN Constipation 02/17/22 [History Last Taken Unknown] calcium acetate(phosphat bind) 667 mg capsule 1,334 mg PO TID binder 02/17/22 [History Last Taken Unknown] loperamide 2 mg capsule 2 mg PO Q6H PRN Diarrhea 02/17/22 [History Last Taken Unknown] triamcinolone acetonide 0.1 % topical cream 1 applic topical BID PRN psoriasis 02/17/22 [History Last Taken Unknown] amlodipine 5 mg tablet 5 mg PO BID blood pressure 05/26/23 [History Last Taken Unknown] carvedilol 3.125 mg tablet 12.5 mg PO BID heart health 05/26/23 [History Last Taken Unknown] clopidogrel 75 mg tablet (Plavix) 75 mg PO DAILY antiplatelet 05/26/23 [History Last Taken Unknown] cholecalciferol (vitamin D3) 125 mcg (5,000 unit) tablet (Vitamin D3) 125 mcg PO .monthly supplement 07/24/23 [History Last Taken Unknown] clonidine HCl 0.2 mg tablet 0.2 mg PO DAILY PRN hypertensive emergency 07/24/23 [History Last Taken Unknown] guaifenesin 100 mg/5 mL oral liquid 200 mg PO Q6H PRN cough 07/24/23 [History Last Taken Unknown] insulin lispro 100 unit/mL subcutaneous pen (Humalog KwikPen (U-100) Insulin) 1 sliding scale dose subcut TID diabetes 07/24/23 [History Last Taken Unknown] potassium chloride 10 mEq capsule,extended release 20 meq PO DAILY hypokalemia 07/24/23 [History Last Taken Unknown] magnesium hydroxide 30 ml PO .1 PRN constipation 08/05/23 [History Last Taken Unknown] vitamin B complex-vitamin C-folic acid 0.8 mg tablet (Nephro-Lola) 1 tab PO DAILY supplement 08/05/23 [History Last Taken Unknown] Allergy/AdvReac Type Severity Reaction Status Date / Time milk Allergy Intermediate Diarrhea Verified 08/05/23 16:05 varenicline tartrate Allergy makes me Verified 08/05/23 16:05 [From Chantix] weird, hallucinations Family History Mother CVA (cerebral vascular accident) Diabetes Hypertension Father Colon cancer Diabetes Brother Diabetes Surgical History history insertion dialysis catheter (~11/04/20) History of cataract extraction History of colectomy History of colonoscopy (~06/2020) History of surgery on left wrist History of vein stripping Social History (Updated 08/05/23 @ 15:[address] Kaley Hamilton DO) housing: custodial Smoking Status: Light Smoker (<10/day) alcohol intake: former details: Patient quit using alcohol 14 years ago substance use type: does not use ROS ROS Narrative As in HPI and past medical history Physical Exam Narrative Alert and oriented x3, no apparent distress S1, S2, RRR Diminished breath sounds with rhonchi Abdomen soft, nontender No pitting edema AV fistula left arm accessed for hemodialysis Lab / Micro Data 08/06/23 06:45 08/06/23 06:45 Labs: Laboratory Results - last 24 hr 08/05/23 12:59: WBC 9.4, RBC 3.15 L, Hgb 11.1 L, Hct 34.3 L, MCV 108.9 H, MCH 35.2 H, MCHC 32.4, RDW Std Deviation 67.3 H, RDW Coeff of Mihaela 16.6 H, Plt Count 166, MPV 11.5, Immature Gran % (Auto) 0.400, Neut % (Auto) 74.7 H, Lymph % (Auto) 14.5 L, [place]ccurt[place] % (Auto) 9.8, Eos % (Auto) 0.4, Baso % (Auto) 0.2, Absolute Neuts (auto) 7.0, Absolute Lymphs (auto) 1.36, Nucleated RBC % 0, Anisocytosis 1+, Sodium 135 L, Potassium 5.2 H, Chloride 96 L, Carbon Dioxide 29.0, Anion Gap 10, BUN 32 H, Creatinine 4.84 H, Estim Creat Clear Calc 11.09, Est GFR (MDRD) Af Amer 15 L, Est GFR (MDRD) Non-Af 12 L, BUN/Creatinine Ratio 6.6 L, Glucose 98, Calcium 10.1, Total Bilirubin 1.20 H, AST 25, ALT 21, Alkaline Phosphatase 84, Troponin I High Sens 15, Total Protein 7.5, Albumin 3.5, Globulin 4.0, Albumin/Globulin Ratio 0.9 08/05/23 13:40: Lactic Acid 3.2 H* 08/05/23 15:29: Troponin I High Sens 16 08/05/23 19:05: Lactic Acid 1.8 08/06/23 06:45: WBC 6.0, RBC 2.84 L, Hgb 10.0 L, Hct 31.0 L, MCV 109.2 H, MCH 35.2 H, MCHC 32.3, RDW Std Deviation 66.1 H, RDW Coeff of Mihaela 16.4 H, Plt Count 160, MPV 11.9, Immature Gran % (Auto) 0.300, Neut % (Auto) 85.7 H, Lymph % (Auto) 11.3 L, [place] % (Auto) 2.7, Eos % (Auto) 0.0, Baso % (Auto) 0.0, Absolute Neuts (auto) 5.1, Absolute Lymphs (auto) 0.67 L, Nucleated RBC % 0, Anisocytosis 1+, PT 16.2 H, INR 1.3, APTT 31.9, Sodium 134 L, Potassium 6.1 H*, Chloride 98, Carbon Dioxide 27.0, Anion Gap 9, BUN 44 H, Creatinine 5.61 H, Estim Creat Clear Calc 9.18, Est GFR (MDRD) Af Amer 13 L, Est GFR (MDRD) Non-Af 10 L, BUN/Creatinine Ratio 7.8 L, Glucose 245 H, Calcium 9.2, Phosphorus 4.9, Magnesium 2.5 Micro: Microbiology 08/05/23 15:05 Mucosa - Nasopharyngeal Respiratory Panel (PCR) - Final Rhinovirus 08/05/23 13:40 Nasal Secretion SARS-CoV-2 & FLU Antigen (Rapid) - Final ABG Data ABG results: ABG 08/05/23 15:39 Specimen Type ART Sample Site R Radial pH 7.48 H Bicarbonate Actual 25.3 Total CO2 26 Base Excess 2 O2 Saturation 58 L O2 % 5.0 ABG pCO2 33.6 L ABG pO2 28 L* O2 Delivery Device HFNC Vent Mode Not entered Crit Call To/Read Back Yes Blood Gas Notified Whom Blood Gas Notified Time 15:40:50 Radiology Impression Chest X-Ray 08/05/23 13:50 IMPRESSION: Indeterminate 3.7 cm round opacity within the right upper lung concerning for an underlying mass, recommend chest CT for further characterization. Ill-defined opacities within the lower lungs may be secondary to pneumonia and/or atelectasis, cannot exclude an associated left pleural effusion. Electronically Signed: Gissell Erwin MD at 14:16 EDT , Chest CT 08/05/23 14:39 IMPRESSION: 2.4 cm x 2.2 cm mass in the peripheral posterior aspect of the right upper lobe. Bilateral pleural effusions right greater than left with bibasilar infiltration and/or atelectasis. Enlarged left axillary lymph nodes. Electronically Signed: Samson Bob MD at 15:30 EDT ,
[2023-08-06] MEDS: Lidocaine 2% (20 ml mdv) 20 ML Vial INFILT (13:35)
--- NOTE | 2023-08-06 13:39 | CASEMGMT ---
Addendum entered and electronically signed by Priscila Hernandez 08/06/23 16:47: Social Work Confirmed with patient's daughter Jovita, who is listed as the power of stencil inspector, that prefers patient to return to [facility]. Patient has an assisted living apartment at [facility], and the plan is to return to the Assisted Living if able. Patient has 3 more weeks left before will lose that apartment, as has been at the side of [facility] since May. Jovita asks for hospital to arrange transport at time of discharge, and reports belief patient could sit in wheelchair van. Plan: Return to [facility], skilled after new precert attained; will need transport arranged. -MANISHA kelly Original Note: Social Work Pt admitted from [facility]. SW sent message via [employer] to inquire about return and LOC. [facility] can accept when ready. Pt was skilled and will need new precert to return. SW to confirm with pt plan is to return to [facility]. PLAN: DC to [facility], skilled, pending new precert and pt agreement CODY Santana
--- NOTE | 2023-08-06 13:46 | RAD_ITS ---
STUDY: X-RAY CHEST REASON FOR EXAM: Male, 82 years old. Post thora TECHNIQUE: AP inspiration and expiration views. COMPARISON: Comparison is made with prior study dated December 06, 2022. FINDINGS: The patient is status post right thoracentesis. No evidence of a pneumothorax. Persistent left pleural effusion with the infiltration in the left lung as well as right pulmonary nodules. Degenerative changes of both shoulder joints. RAD/Chest Insp/Exp 2 View IMPRESSION: Status post right thoracentesis. No evidence of pneumothorax. Electronically Signed: Samson Bob MD at 14:06 EDT ,
--- NOTE | 2023-08-06 13:52 | FLU_PTH ---
PATIENT: ABEL SOLIS LOC: MS3 U#:[id number] AGE/SX: 82/M ROOM: [facility] RE08/05/[address]: Dr. Ramana Cantrell DO : 1940 BED: 1 DIS: 08/08/2023 SPEC #: [id number] RECD: 08/07/23 08:18 STATUS: RACHNA REWindy #: [id number] LOS: 08/06/23 13:[address]: Ramana Cantrell DEPT: CYTOLOGY RECD BY: Anna Hager ENTERED: 08/07/23 08:18 SP TYPE: Fluid OTHR DR: MD Dr. Fay Robert MD Dr. Kathryn Lee, DO Tissues: Pleural fluid, NOS Procedures: Special Stain Group II Surgery Specimen Level IV Cytospin Fluid HEADER OPERATION: Ultrasound-guided thoracentesis PRE-OP DIAGNOSIS: Pleural effusion TISSUE SUBMITTED: Thoracentesis fluid for cytology DIAGNOSIS CYTOLOGY Thoracentesis fluid for cytology (cytospin and cell block): Negative for malignant cells. AM:gil 08/08/2023 CYTOLOGY STUDY Slides are reviewed. CYTOLOGY GROSS Received is 90 ml of yellow cloudy fluid labeled with the patient's name and and designated per the requisition as thoracentesis. Submitted for cytology preparation including cell block. / gil 08/07/2023 TC:5 CPT: 31344, 58428
[2023-08-06 13:53] LABS: LDH 214 U/L (87-241)
[2023-08-06 14:08] LABS: Cytology, Body Fluid / CSF SEE PATHOLOGY REPORT
[2023-08-06 14:27] LABS: Body Fluid Mononuclear WBC % 88.3 %; Body Fluid Polynuclear WBC # 0.008 10^3/uL; Body Fluid Polynuclear WBC % 11.7 %; Body Fluid Total Cells Counted 0.079 10^3/ul; White Blood Count/Body Fluid 0.068 10^3/uL
[2023-08-06 14:28] LABS: Auto B Fluid Analyzer BKGD Ct COUNTS W/IN LIMITS (W/IN LIMITS); Source- Body Fluid THORACENTESIS
[2023-08-06 14:29] LABS: Appearance/Body Fluid CLEAR; Color/Body Fluid YELLOW
[2023-08-06 15:05] LABS: Red Cell Count/Body Fluid 7 /mm3
--- NOTE | 2023-08-06 15:11 | PCM.OP.PRO ---
Procedure Report Date of Procedure: 08/06/23 Assessment & Plan Assessment/Plan (1) Pleural effusion: PLAN: PROCEDURE: Ultrasound Guided Thoracentesis ORDERING PROVIDER: Dr. Cantrell INDICATION: Male, 82 years old. Right pleural effusion. PROVIDER: BERHANE Victoria PROCEDURE: The risks, benefits, and alternatives to the procedure were explained to the patient. The specific risks of bleeding, infection, and pneumothorax requiring chest tube insertion were discussed and accepted. Written informed consent was obtained. Ultrasonographic evaluation of the bilateral lower pleural spaces was carried out. An adequate pocket was identified in the right lower pleural space. The patient was placed in the sitting, upright position. The overlying skin was prepped and draped in sterile fashion. 2% lidocaine was administered subcutaneously for local anesthesia. Under ultrasound guidance, a 5-Uzbek thoracentesis needle/catheter system was advanced into the right posterior lower pleural fluid collection. 1270 ml of light camilo colored fluid was drained. 100 mL of this was sent to the laboratory for testing, as ordered by requesting physician. The catheter was removed, and a sterile dressing was applied. The patient tolerated the procedure well. A chest x-ray was ordered. IMPRESSION: Successful ultrasound-guided thoracentesis of right pleural effusion. Procedures Radiology Radiology US Procedures: 95638 Thoracentesis
[2023-08-06 15:32] LABS: Body Fluid QC Type(s) BF1Q; Lymphocytes 60 %; Monocytes 20 %; Neutrophil (Segs) 20 %
[2023-08-06 16:29] LABS: Glucose, Body Fluid 299 mg/dL (40-70); LDH,Body Fluid 65 Units/L (Not Establ.); Protein, Body Fluid 2.4 g/dL (Not Establ.)
--- NOTE | 2023-08-06 17:05 | CASEMGMT ---
Social Work - Advanced Directive Validation Message to Bhargav, shipping and receiving coordinator for [facility], asking [employer] to check on whether there are advanced directives on file at the facility, and if so to fax to [facility] to be added to patient's file. 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 Daughter Jovita is listed as the POA for the patient. -MANISHA Soria
--- NOTE | 2023-08-06 17:38 | US_ITS ---
PROCEDURE: ULTRASOUND GUIDED THORACENTESIS. DATE: August 06, 2023.. INDICATION: Male, 82 years old. Right pleural effusion. PHYSICIAN: Samson Bob M.D. PROCEDURE: The risks, benefits, and alternatives to the procedure were explained to the patient. The specific risks of bleeding, infection, and pneumothorax requiring chest tube insertion were discussed and accepted. Written informed consent was obtained. Ultrasonographic evaluation of the right lower pleural space was carried out. An adequate pocket was identified. The patient was placed in the sitting, upright position. The overlying skin was prepped and draped in sterile fashion. 1% lidocaine was administered subcutaneously for local anesthesia. Under ultrasound guidance, a 5 New Zealander thoracentesis needle/catheter system was advanced into the right posterior lower pleural fluid collection. Approximately 1270 mL of camilo-colored fluid fluid was drained. The catheter was removed, and a sterile dressing was applied. A specimen was collected and sent to the laboratory for analysis, as requested by the referring clinician. The patient tolerated the procedure well. A chest x-ray was ordered. US/Thoracentesis W US IMPRESSION: Ultrasound-guided right thoracentesis. Electronically Signed: Samson Bob MD at 14:37 EDT ,
[2023-08-06 18:28] LABS: AST(SGOT) 21 U/L (15-37); Alanine Aminotransfer ALT/SGPT 18 U/L (16-61); Alkaline Phosphatase 72 U/L (45-117); Bilirubin, Direct 0.27 mg/dL (0.00-0.30); Globulin 3.6 g/dL (2.2-4.2); Protein, Total 6.6 g/dL (6.4-8.2)
--- NOTE | 2023-08-06 22:59 | CPS ---
Patient declines CPAP use at this time
[2023-08-07] VITALS (13 sets, daily range): BP systolic 133–152; BP diastolic 40–75; PULSE 55–68; RESP 15–24; TEMP 36.3–36.8; O2SAT 93–100
--- NOTE | 2023-08-07 | FLU_PTH ---
PATIENT: ABEL SOLIS LOC: MS3 U#:[id number] AGE/SX: 82/M ROOM: [facility] RE08/05/[address]: Dr. Ramana Cantrell DO : 1940 BED: 1 DIS: 08/08/2023 SPEC #: [id number] RECD: 08/07/23 12:29 STATUS: RACHNA REWindy #: [id number] LOS: 08/07/23 00:[address]: Ramana Cantrell DEPT: CYTOLOGY RECD BY: Vasquez Mercedes ENTERED: 08/07/23 13:59 SP TYPE: Fluid OTHR DR: MD Dr. Fay Robert MD Dr. Kathryn Lee, Tissues: THORACIC FLUID Procedures: Special Stain Group II Cytospin Fluid HEADER OPERATION: Ultrasound-guided thoracentesis PRE-OP DIAGNOSIS: Left pleural effusion TISSUE SUBMITTED: Thoracentesis fluid for cytology DIAGNOSIS CYTOLOGY Thoracentesis fluid for cytology (cytospin and cell block): Negative for malignant cells. Acute inflammation. AM:igl 08/08/2023 CYTOLOGY STUDY Slides are reviewed. CYTOLOGY GROSS Received is 90 ml of yellow cloudy fluid labeled with the patient's name and and designated per the requisition as thoracentesis. Submitted for cytology preparation including cell block. / gil 08/07/2023 TC:2 CPT: 00544, 46645
[2023-08-07] MEDS: Ipratropium/Albuterol Sulfate 3 ML AMPUL.NEB INHALATION ×4 (03:54→23:38)
[2023-08-07] MEDS: Methylprednisolone Sod Succ 40 MG/ML VIAL IV ×2 (05:00→13:06)
[2023-08-07] MEDS: Ammonium Lactate 225 gm Bottle 1 APPLIC TOPICAL ×3 (05:00→21:46)
[2023-08-07] MEDS: 0.9% Saline Lock 10 ML Syringe IV ×2 (05:00→13:08)
[2023-08-07 06:49] LABS: Absolute Lymphocyte Count 0.65 X10^3/uL (0.83-4.51); Absolute Neutrophil Count 7.8 X10^3/uL (2.0-7.7); Hematocrit 30.8 % (40-54); Lymphocyte # 0.65 X10^3/ul (0.83-4.51); Lymphocyte % 7.2 % (19-41); Mean Corp Hgb Conc 32.5 g/dL (32-36); Mean Corpuscular Volume 107.7 fL (80-94); Mean Platelet Vol. 11.6 fl (6.2-12.0); Monocyte# 0.46 X10^3/uL; Monocyte% 5.1 % (0-10); NRBC Flagged by Analyzer 0 % (0-5); Neutrophil # 7.84 X10^3/uL (2.7-7.7); Neutrophil % 87.3 % (47-70); Platelet Count 157 K/mm3 (150-450); RBC Distribution Width CV 15.9 % (11.6-14.6); Red Blood Count 2.86 M/mm3 (4.6-6.2)
--- NOTE | 2023-08-07 07:00 | US_ITS ---
PROCEDURE: ULTRASOUND GUIDED THORACENTESIS. DATE: August 07, 2023.. INDICATION: Male, 82 years old. Left pleural effusion. PHYSICIAN: Samson Bob M.D. PROCEDURE: The risks, benefits, and alternatives to the procedure were explained to the patient. The specific risks of bleeding, infection, and pneumothorax requiring chest tube insertion were discussed and accepted. Written informed consent was obtained. Ultrasonographic evaluation of the left lower pleural space was carried out. An adequate pocket was identified. The patient was placed in the sitting, upright position. The overlying skin was prepped and draped in sterile fashion. 1% lidocaine was administered subcutaneously for local anesthesia. Under ultrasound guidance, a 5 Chilean thoracentesis needle/catheter system was advanced into the left posterior lower pleural fluid collection. Approximately 1100 mL of camilo-colored fluid was drained. The catheter was removed, and a sterile dressing was applied. A specimen was collected and sent to the laboratory for analysis, as requested by the referring clinician. The patient tolerated the procedure well. A chest x-ray was ordered. US/Thoracentesis W US IMPRESSION: Ultrasound-guided left thoracentesis. Electronically Signed: Samson Bob MD at 13:01 EDT ,
[2023-08-07 07:23] LABS: Anion Gap 8 (5-15); BUN 42 mg/dL (7-18); BUN/Creat Ratio 9.1 RATIO (10-20); Chloride 97 mmol/L (98-107); Creatinine, Serum 4.62 mg/dL (0.70-1.30); EST Glomerular Filtration Rate 13 mL/min (>60); Est Glom Filt Rate - Afr Amer 16 mL/min (>60); Estimated Creatinine Clearance 10.66 ml/min; Glucose 337 mg/dL (74-106); Potassium 5.3 mmol/L (3.5-5.1); Sodium Level 131 mmol/L (136-145)
--- NOTE | 2023-08-07 08:01 | PCM.PN.HOSP ---
Reason for Visit Reason for Visit: Diagnoses Acidosis, unspecified (08/05/23) Hyperkalemia (08/05/23) Pleural effusion, not elsewhere classified (08/05/23) Shortness of breath (08/05/23) Hypoxemia (08/05/23) Other nonspecific abnormal finding of lung field (08/05/23) Abnormal findings on diagnostic imaging of other specified body structures (08/05/23) Subjective Subjective Breathing better after the thoracentesis yesterday (seen before the 2nd thoracentesis) Objective Data Objective Data Vital Signs: Vital Signs Temp Pulse Resp BP Pulse Ox O2 Del Method O2 Flow Rate 36.8 C 59 L 18 145/62 H 94 Nasal Cannula 4 08/07/23 04:30 08/07/23 04:30 08/07/23 04:30 08/07/23 04:30 08/07/23 07:33 08/07/23 07:33 08/07/23 07:33 Oxygen Flow Rate (L/min) [4] 3 Oxygen Flow Rate (L/min) [3] 3 Oxygen Flow Rate (L/min) [2] 3 Oxygen Flow Rate (L/min) [1 ( 3 Initial Baseline)] Oxygen Flow Rate (L/min) 4 Oxygen Delivery Method [4] Nasal Cannula Oxygen Delivery Method [3] Nasal Cannula Oxygen Delivery Method [2] Nasal Cannula Oxygen Delivery Method [1 ( Nasal Cannula Initial Baseline)] Oxygen Delivery Method Nasal Cannula Weight: 59.1 kg Body Mass Index (BMI) 19.3 Intake & Output: Intake and Output for Last 24 Hours 08/05/23 08/06/23 08/07/23 23:59 23:59 23:59 Intake Total 1105 / 1105 100 / 240 280 / 280 Output Total 3970 / 3970 Balance 1105 / 1105 -3870 / -3730 280 / 280 Medical Nutrition Assessment Dietitian: Malnutrition Criteria Met Start: 08/06/23 15:52 Freq: Status: Active Protocol: Document 08/06/23 15:52 RMA (Rec: 08/06/23 15:52 RMA [id number]) Nutrition Malnutrition Evidence of Malnutrition Exists Yes Malnutrition (severe): Chronic Evidenced By Suboptimal Energy Intake ( Severe),Weight Loss (Severe) Clinical Problem Chronic Disease or Condition Related Malnutrition Etiology Severe protein-calorie malnutrition in the context of chronic disease related to inadequate oral intake Signs/Symptoms as evidenced by ~9% unintentional weight loss x 2 months, BMI 19.2 and PO meeting less than 50% estimated nutrition needs x 2- 3 months Status Active Problem Recommendation Dietitian Recommendations/Changes Will adjust diet to renal/ consistent carbohydrate. Will continue Nepro PO 120mL 3 times per day w/ medpass. Pt avoids milk due to induces diarrhea. Additional ONS as PO established. Lab / Micro Data 08/07/23 06:29 08/07/23 06:29 Labs: Laboratory Results - last 24 hr 08/06/23 06:45: Anisocytosis 1+, PT 16.2 H, INR 1.3, APTT 31.9, Sodium 134 L, Potassium 6.1 H*, Chloride 98, Carbon Dioxide 27.0, Anion Gap 9, BUN 44 H, Creatinine 5.61 H, Estim Creat Clear Calc 9.18, Est GFR (MDRD) Af Amer 13 L, Est GFR (MDRD) Non-Af 10 L, BUN/Creatinine Ratio 7.8 L, Glucose 245 H, Calcium 9.2, Phosphorus 4.9, Magnesium 2.5, Total Bilirubin 0.80, Direct Bilirubin 0.27, AST 21, ALT 18, Alkaline Phosphatase 72, Lactate Dehydrogenase 214, Total Protein 6.6, Albumin 3.0 L, Globulin 3.6 08/06/23 13:40: Fluid Source THORACENTESIS, Fluid Color YELLOW, Fluid Appearance CLEAR, Fluid WBC 0.068, Fluid RBC 7, Fluid Tot Cell Count 0.079, Fld Polynuclear WBCs # 0.008, Fld Polynuclear WBCs % 11.7, Fluid Mononuclear WBCs 0.060, Fld Mononuclear WBCs % 88.3, Fluid Neutrophils 20, Fluid Lymphocytes 60, Fluid Monocytes 20, Fl Pathologist Comment May follow, Fluid Glucose 299 H, Fluid Total Protein 2.4 08/06/23 13:40: Fluid Total Protein Cancelled, Fluid LDH 65 08/06/23 13:40: Fluid LDH Cancelled, Fluid Comment 2 SEE COMMENT 08/07/23 06:29: WBC 9.0, RBC 2.86 L, Hgb 10.0 L, Hct 30.8 L, MCV 107.7 H, MCH 35.0 H, MCHC 32.5, RDW Std Deviation 64.0 H, RDW Coeff of Mihaela 15.9 H, Plt Count 157, MPV 11.6, Immature Gran % (Auto) 0.400, Neut % (Auto) 87.3 H, Lymph % (Auto) 7.2 L, [place] % (Auto) 5.1, Eos % (Auto) 0.0, Baso % (Auto) 0.0, Absolute Neuts (auto) 7.8 H, Absolute Lymphs (auto) 0.65 L, Nucleated RBC % 0, Sodium 131 L, Potassium 5.3 H, Chloride 97 L, Carbon Dioxide 26.0, Anion Gap 8, BUN 42 H, Creatinine 4.62 H, Estim Creat Clear Calc 10.66, Est GFR (MDRD) Af Amer 16 L, Est GFR (MDRD) Non-Af 13 L, BUN/Creatinine Ratio 9.1 L, Glucose 337 H, Calcium 9.0 Micro: Microbiology 08/05/23 15:05 Mucosa - Nasopharyngeal Respiratory Panel (PCR) - Final Rhinovirus 08/05/23 13:40 Nasal Secretion SARS-CoV-2 & FLU Antigen (Rapid) - Final Radiography Diagnostic Testing: Radiology Impression Chest X-Ray 08/06/23 13:46 IMPRESSION: Status post right thoracentesis. No evidence of pneumothorax. Electronically Signed: Samson Bob MD at 14:06 EDT , Thoracentesis Ultrasound 08/06/23 17:38 IMPRESSION: Ultrasound-guided right thoracentesis. Electronically Signed: Samson Bob MD at 14:37 EDT , Physical Exam Const alert and no apparent distress Resp normal respiratory effort, no retractions, no use of accessory muscles and clear to auscultation bilaterally Cardio regular rate, regular rhythm, S1 normal heart sound and S2 normal heart sound GI normal to inspection, nondistended, normoactive bowel sounds, soft to palpation, non-tender and non-distended Extremity normal to inspection Neuro Sensorium / Orientation: awake and alert Assessment & Plan Assessment/Plan (1) Pleural effusion: PLAN: Bilateral pleural effusions. R > L Appears transudative based on Light's Criteria. Pt underwent a right-side thoracentesis on 08/06 which removed 1270 cc. Repeat thoracentesis ordered for the left side today removed 1.1 liters of fluid. Sent off for cytology. (2) Lung mass: PLAN: Concerning for malignancy Check cytology on thoracentesis, if negative, eventually will require CT-guided biopsy of lung mass. (3) Hypoxia: PLAN: POA 2/2 pleural effusions and rhinovirus Reported 88% on 2l. 28mmHg on ABG (though I suspect it was a VBG) wean oxygen as tolerated. (4) Hyperkalemia: PLAN: ESRD monitor (5) Lactic acidosis: PLAN: likely 2/2 hypoxia. resolved no additional work up. PLAN: Plan Chronic conditions: Chronic anemia secondary to end-stage renal disease-Counts are stable-Continue to monitor Chronic hyponatremia-Currently mild at 135-Volume management with dialysis Left foot diabetic foot wound-Follows with [facility] and the wound center-Previous left second digit amputation-Recent debridement on 07/24/2023 by podiatry-Is on doxycycline 100 mg p.o. twice daily for 14 days which was started on 07/24/2023 with a stop date of 08/07/2023. Culture shows staph epi with resistance to quinolones-Consult wound care UP-3-Ngmzkxr is currently not taking any medication for his diabetes but he has been having elevated blood sugars at home-Last hemoglobin was A1c was 5.9 on 05/13/2023-He required some basal insulin with steroid use but will monitor for now-SSI End-stage renal disease on HD-MWF HD-Continue home phosphate binder and daily vitamin-Consult nephrology-Dr. Hamilton Chronic systolic heart failure-Last echocardiogram was performed Hypertension-Continue home medication once verified Hyperlipidemia-It does not appear patient is currently on any regimen for hyperlipidemia-Recommend outpatient follow-up History of stroke-We will hold Plavix for now given need for thoracentesis and possible lung nodule biopsy History of GOKUL-Continue home CPAP Debility-Consult PT/OT-Patient is currently residing at [facility] may need pre-CERT to return-We will consult social work/case management director History of colon cancer status post colectomy-Hemoglobin stable-No current issues Tobacco abuse-Last use was about a week ago-Patient defers need for any nicotine replacement therapy stating it will make him crazy History of alcohol abuse-Last use was 14 years ago DVT prophylaxis -Subcu heparin 3 times daily CODE STATUS Full code. Disposition: to [facility] pending insurance authorization. 08/06: Discussed with the patient's daughter Jovita about the pleural effusion, follow-up for cytology if that is negative then patient will likely need an outpatient CT-guided biopsy of the lung mass. Charges/Coding Visit Charges Inpatient E&M: 28291 Subs Hosp L2
[2023-08-07] MEDS: Calcium Acetate 667 MG Capsule 1334 MG PO ×3 (08:07→17:39)
[2023-08-07] MEDS: Carvedilol 12.5 MG Tablet PO ×2 (08:07→21:46)
[2023-08-07] MEDS: Folic Acid/Vitamin B Comp W-C 1 Capsule 1 CAP PO (08:07)
[2023-08-07] MEDS: amLODIPine 5 MG Tablet PO ×2 (08:08→21:47)
[2023-08-07] MEDS: guaiFENesin 1,200 MG Tablet 1200 MG PO ×2 (08:08→21:46)
[2023-08-07] MEDS: Magnesium Hydroxide 30 ML UDC 15 ML PO (08:13)
--- NOTE | 2023-08-07 09:43 | CASEMGMT ---
Discharge Planning Updates sent to [facility] via [facility]. Asked for precert to be submitted. Updated SW that patient has not been seen by therapy. Monica Locke, Discharge Planning Asst.
--- NOTE | 2023-08-07 10:54 | WOUNDNOTE ---
wound photo: left lateral foot
--- NOTE | 2023-08-07 11:10 | CASEMGMT ---
Discharge Planning Therapy evals sent to [facility] via [employer]. Precert will be submitted. Monica Locke, Discharge Planning Asst.
[2023-08-07] MEDS: Lidocaine 2% (20 ml mdv) 20 ML Vial INFILT (12:13)
--- NOTE | 2023-08-07 12:22 | RAD_ITS ---
STUDY: X-RAY CHEST REASON FOR EXAM: Male, 82 years old. Post thora TECHNIQUE: AP inspiration and expiration views. COMPARISON: Comparison is made with prior study dated August 06, 2023. FINDINGS: The patient is status post left thoracentesis. No evidence of pneumothorax. RAD/Chest Insp/Exp 2 View IMPRESSION: No evidence of pneumothorax on the posterior left thoracentesis images. Electronically Signed: Samson Bob MD at 12:38 EDT ,
[2023-08-07 12:34] LABS: Cytology, Body Fluid / CSF SEE PATHOLOGY REPORT
--- NOTE | 2023-08-07 13:03 | PCM.OP.PRO ---
Procedure Report Date of Procedure: 08/07/23 Assessment & Plan Assessment/Plan (1) Pleural effusion: PLAN: PROCEDURE: Ultrasound Guided Thoracentesis ORDERING PROVIDER: Dr. Cantrell INDICATION: Male, 82 years old. Left pleural effusion. PROVIDER: BERHANE Victoria PROCEDURE: The risks, benefits, and alternatives to the procedure were explained to the patient. The specific risks of bleeding, infection, and pneumothorax requiring chest tube insertion were discussed and accepted. Written informed consent was obtained. Ultrasonographic evaluation of the bilateral lower pleural spaces was carried out. An adequate pocket was identified in the left lower pleural space. The patient was placed in the sitting, upright position. The overlying skin was prepped and draped in sterile fashion. 2% lidocaine was administered subcutaneously for local anesthesia. Under ultrasound guidance, a 5-Russian thoracentesis needle/catheter system was advanced into the left posterior lower pleural fluid collection. 1100 ml of clear yellow colored fluid was drained. A 100 mL sample of total fluid collected was sent to the laboratory for analysis, as requested by the referring clinician. The catheter was removed, and a sterile dressing was applied. The patient tolerated the procedure well. A chest x-ray was ordered. IMPRESSION: Successful ultrasound-guided thoracentesis of left pleural effusion. Procedures Radiology Radiology US Procedures: 32022 Thoracentesis
[2023-08-07] MEDS: Nepro Liquid 120 ML LIQUID PO (13:06)
[2023-08-07] MEDS: Heparin Injection (Vial) 5,000 UNIT/ML VIAL 5000 UNIT SC ×2 (13:06→21:46)
--- NOTE | 2023-08-07 14:34 | TREXTCAR_ITS ---
Diet Diet Order/Speech Therapy: 08/05/23 17:38 Diet: Renal - General Food consistency:: Regular Liquid Consistency:: Regular/Thin Dietary Modifications:: Consistent Carbohydrate Potassium Restricted Sodium Restricted Phosphorus Restricted Is pt able to select menu?: Yes Diet Comments: no milk Routine Orders/Code Status O2 Liters per Minute: 2 O2 Frequency: Continuous Keep PO Greater than or Equal to (%): 90 Routine Lab Work: CBC (weekly) and BMP (weekly) Code Status: Full Code Wound(s) top of head: Wound Type: Laceration top of left foot: Wound Type: Skin Tear lateral side of left foot: Wound Type: Neuropathic/Diabetic Foot Ulcer rt upper back: Wound Type: Puncture Therapies Physical Therapy: Eval and Treat Occupational Therapy: Eval and Treat Problem/Diagnosis (1) Pleural effusion: Status: Acute Code(s): J90 - Pleural effusion, not elsewhere classified Plan: Bilateral pleural effusions. R > L Appears transudative based on Light's Criteria. Pt underwent a right-side thoracentesis on 08/06 which removed 1270 cc. Repeat thoracentesis ordered for the left side today removed 1.1 liters of fluid. Sent off for cytology. (2) Lung mass: Status: Acute Code(s): R91.8 - Other nonspecific abnormal finding of lung field Plan: Concerning for malignancy Check cytology on thoracentesis, if negative, eventually will require CT-guided biopsy of lung mass. (3) Hypoxia: Status: Acute Code(s): R09.02 - Hypoxemia Plan: POA 2/2 pleural effusions and rhinovirus Reported 88% on 2l. 28mmHg on ABG (though I suspect it was a VBG) wean oxygen as tolerated. (4) Hyperkalemia: Status: Acute Code(s): E87.5 - Hyperkalemia Plan: ESRD monitor (5) Lactic acidosis: Status: Acute Code(s): E87.20 - Acidosis, unspecified Plan: likely 2/2 hypoxia. resolved no additional work up. Plan Chronic conditions: * Chronic anemia secondary to end-stage renal disease-Counts are stable-Continue to monitor * Chronic hyponatremia-Currently mild at 135-Volume management with dialysis * Left foot diabetic foot wound-Follows with [facility] podiatry and the wound center- Previous left second digit amputation-Recent debridement on 07/24/2023 by podiatry-Is on doxycycline 100 mg p.o. twice daily for 14 days which was started on 07/24/2023 with a stop date of 08/07/2023. Culture shows staph epi with resistance to quinolones-Consult wound care * GM-6-Lmlizkh is currently not taking any medication for his diabetes but he has been having elevated blood sugars at home-Last hemoglobin was A1c was 5.9 on 05/13/2023-He required some basal insulin with steroid use but will monitor for now-SSI * End-stage renal disease on HD-MWF HD-Continue home phosphate binder and daily vitamin-Consult nephrology-Dr. Hamilton * Chronic systolic heart failure-Last echocardiogram was performed * Hypertension-Continue home medication once verified * Hyperlipidemia-It does not appear patient is currently on any regimen for hyperlipidemia-Recommend outpatient follow-up * History of stroke-We will hold Plavix for now given need for thoracentesis and possible lung nodule biopsy * History of GOKUL-Continue home CPAP * Debility-Consult PT/OT-Patient is currently residing at [facility] may need pre-CERT to return-We will consult social work/caseworker intake * History of colon cancer status post colectomy-Hemoglobin stable-No current issues * Tobacco abuse-Last use was about a week ago-Patient defers need for any nicoti ne replacement therapy stating it will make him crazy * History of alcohol abuse-Last use was 14 years ago DVT prophylaxis -Subcu heparin 3 times daily CODE STATUS Full code. Disposition: to [facility] pending insurance authorization. 08/06: Discussed with the patient's daughter Jovita about the pleural effusion, follow-up for cytology if that is negative then patient will likely need an outpatient CT-guided biopsy of the lung mass. Allergies/Procedures Done in Hospital Allergies milk Allergy (Intermediate, Verified 08/05/23 16:05) Diarrhea varenicline tartrate [From Chantix] Allergy (Verified 08/05/23 16:05) makes me weird, hallucinations Procedures: None Type of Care/Length of Stay Estimated LOS: Convalescent Care Less Than 30 days Type of Care Needed: Skilled Rehab Potential: Good Prognosis: Good Additional Orders/Day of Discharge Day of Discharge: 08/07/23 Dietary and Speech Recommendations Dietitian Recommendations/Changes: Will adjust diet to renal/consistent carbohydrate. Will continue Nepro PO 120mL 3 times per day w/ medpass. Pt avoids milk due to induces diarrhea. Additional ONS as PO established. Discharge Plan Admission Admit Date/Time: 08/05/23 15:24 Primary Reason for Your Visit: pleural effusion Attending Provider: Ramana Cantrell Primary Care Provider: Fay Diaz Consulting Providers: Marck Segura; Kaley Hamilton Instructions Patient Instructions: MANUELITO RN Thoracentesis Dc Discharge Orders/Prescriptions Prescriptions: Continued acetaminophen [Tylenol] 325 mg tablet 650 mg PO Q4H PRN PRN (Reason: Pain Score 1-10/Temp > 100.7 F) ammonium lactate 12 % Lotion 1 applic TOPICAL TID loperamide 2 mg Capsule 2 mg PO Q6H PRN (Reason: Diarrhea) triamcinolone acetonide 0.1 % Cream 1 applic TOPICAL BID PRN (Reason: psoriasis) bisacodyl 10 mg Suppository 10 mg AK DAILY PRN (Reason: Constipation) calcium acetate(phosphat bind) 667 mg Capsule 1,334 mg PO TID Patient Comments: give with meals clonidine HCl 0.2 mg tablet 0.2 mg PO DAILY PRN (Reason: hypertensive emergency) Patient Comments: take as needed for bp >160 guaifenesin 100 mg/5 mL liquid 200 mg PO Q6H PRN (Reason: cough) insulin lispro [Humalog KwikPen Insulin] 100 unit/mL insulin pen 1 sliding scale dose subcut TID Rx Instructions: takes 2 units subcutaneously in the afternoon cholecalciferol (vitamin D3) [Vitamin D3] 125 mcg (5,000 unit) tablet 125 mcg PO .monthly Patient Comments: on the amlodipine 5 mg tablet 5 mg PO BID clopidogrel [Plavix] 75 mg tablet 75 mg PO DAILY carvedilol 3.125 mg Tablet 12.5 mg PO BID Nephro-Lola 0.8 mg tablet 1 tab PO DAILY magnesium hydroxide [Weinberg Milk of Magnesia] 30 ml PO .1 PRN (Reason: constipation) Discontinued potassium chloride 10 mEq capsule, extended release 20 meq PO DAILY Referrals / Follow Up: Fay Diaz MD [Primary Care Provider] - Within 1 Week Disposition Disposition (needs filled in before D/C Order can be placed): [facility]
--- NOTE | 2023-08-07 15:27 | PCM.PN.REN ---
Subjective Subjective no new complaints today. O2 requirements better Objective Data Objective Data Vital Signs: Vital Signs Temp Pulse Resp BP Pulse Ox O2 Del Method O2 Flow Rate 97.6 F L 57 L 15 134/51 H 96 Room Air 2 08/07/23 13:19 08/07/23 13:19 08/07/23 13:19 08/07/23 13:19 08/07/23 13:31 08/07/23 13:31 08/07/23 13:19 Oxygen Flow Rate (L/min) [4] 3 Oxygen Flow Rate (L/min) [3] 3 Oxygen Flow Rate (L/min) [2] 3 Oxygen Flow Rate (L/min) [1 ( 3 Initial Baseline)] Oxygen Flow Rate (L/min) [4] 3 Oxygen Flow Rate (L/min) [3] 3 Oxygen Flow Rate (L/min) [2] 3 Oxygen Flow Rate (L/min) [1 ( 3 Initial Baseline)] Oxygen Flow Rate (L/min) 2 Oxygen Delivery Method [4] Nasal Cannula Oxygen Delivery Method [3] Nasal Cannula Oxygen Delivery Method [2] Nasal Cannula Oxygen Delivery Method [1 ( Nasal Cannula Initial Baseline)] Oxygen Delivery Method [4] Nasal Cannula Oxygen Delivery Method [3] Nasal Cannula Oxygen Delivery Method [2] Nasal Cannula Oxygen Delivery Method [1 ( Nasal Cannula Initial Baseline)] Oxygen Delivery Method Room Air Weight: 59.1 kg Body Mass Index (BMI) 19.3 Intake & Output: Intake and Output for Last 24 Hours 08/05/23 08/06/23 08/07/23 23:59 23:59 23:59 Intake Total 1105 / 1105 100 / 240 280 / 280 Output Total 3970 / 3970 1100 / 1100 Balance 1105 / 1105 -3870 / -3730 -820 / -820 Medical Nutrition Assessment Dietitian: Malnutrition Criteria Met Start: 08/06/23 15:52 Freq: Status: Active Protocol: Document 08/06/23 15:52 RMA (Rec: 08/06/23 15:52 RMA [id number]) Nutrition Malnutrition Evidence of Malnutrition Exists Yes Malnutrition (severe): Chronic Evidenced By Suboptimal Energy Intake ( Severe),Weight Loss (Severe) Clinical Problem Chronic Disease or Condition Related Malnutrition Etiology Severe protein-calorie malnutrition in the context of chronic disease related to inadequate oral intake Signs/Symptoms as evidenced by ~9% unintentional weight loss x 2 months, BMI 19.2 and PO meeting less than 50% estimated nutrition needs x 2- 3 months Status Active Problem Recommendation Dietitian Recommendations/Changes Will adjust diet to renal/ consistent carbohydrate. Will continue Nepro PO 120mL 3 times per day w/ medpass. Pt avoids milk due to induces diarrhea. Additional ONS as PO established. Lab / Micro Data 08/07/23 06:29 08/07/23 06:29 Labs: Laboratory Results - last 24 hr 08/06/23 06:45: Total Bilirubin 0.80, Direct Bilirubin 0.27, AST 21, ALT 18, Alkaline Phosphatase 72, Total Protein 6.6, Albumin 3.0 L, Globulin 3.6 08/06/23 13:40: Fluid Neutrophils 20, Fluid Lymphocytes 60, Fluid Monocytes 20, Fluid Glucose 299 H, Fluid Total Protein 2.4, Fluid LDH 65 08/07/23 06:29: WBC 9.0, RBC 2.86 L, Hgb 10.0 L, Hct 30.8 L, MCV 107.7 H, MCH 35.0 H, MCHC 32.5, RDW Std Deviation 64.0 H, RDW Coeff of Mihaela 15.9 H, Plt Count 157, MPV 11.6, Immature Gran % (Auto) 0.400, Neut % (Auto) 87.3 H, Lymph % (Auto) 7.2 L, [place] % (Auto) 5.1, Eos % (Auto) 0.0, Baso % (Auto) 0.0, Absolute Neuts (auto) 7.8 H, Absolute Lymphs (auto) 0.65 L, Nucleated RBC % 0, Sodium 131 L, Potassium 5.3 H, Chloride 97 L, Carbon Dioxide 26.0, Anion Gap 8, BUN 42 H, Creatinine 4.62 H, Estim Creat Clear Calc 10.66, Est GFR (MDRD) Af Amer 16 L, Est GFR (MDRD) Non-Af 13 L, BUN/Creatinine Ratio 9.1 L, Glucose 337 H, Calcium 9.0 Micro: Microbiology 08/06/23 13:40 Fluid - Thoracentesis Fluid Gram Stain - Final 08/06/23 13:40 Fluid - Thoracentesis Fluid Body Fluid Culture - Preliminary No growth-Final to follow 08/05/23 15:29 Blood Culture (Wb) - Anticubital Right Blood Culture - Preliminary No growth in 48 hours. 08/05/23 13:40 Blood Culture (Wb) - Anticubital Right Blood Culture - Preliminary No growth in 48 hours. 08/05/23 15:05 Mucosa - Nasopharyngeal Respiratory Panel (PCR) - Final Rhinovirus 08/05/23 13:40 Nasal Secretion SARS-CoV-2 & FLU Antigen (Rapid) - Final Radiography Diagnostic Testing: Radiology Impression Thoracentesis Ultrasound 08/07/23 07:00 IMPRESSION: Ultrasound-guided left thoracentesis. Electronically Signed: Samson Bob MD at 13:01 EDT , Chest X-Ray 08/07/23 12:22 IMPRESSION: No evidence of pneumothorax on the posterior left thoracentesis images. Electronically Signed: Samson Bob MD at 12:38 EDT , Physical Exam Narrative Alert and oriented x3, no apparent distress S1, S2, RRR Diminished breath sounds with rhonchi Abdomen soft, nontender No pitting edema AV fistula left arm accessed for hemodialysis Assessment & Plan Assessment/Plan (1) End-stage renal disease on hemodialysis: (2) Hyperkalemia: (3) Lung mass: (4) Shortness of breath: PLAN: Plan This is a pleasant 82-year-old male with past medical history significant for ESRD on hemodialysis via AV fistula who was brought to the emergency room yesterday for evaluation of shortness of breath requiring more oxygen at the half-way. Work-up in the emergency room showed bilateral pleural effusions, lung mass concerning for malignancy. s/p dialysis. feels better.
[2023-08-08] VITALS (15 sets, daily range): BP systolic 131–282; BP diastolic 52–94; PULSE 60–69; RESP 14–20; TEMP 36.2–37.1; O2SAT 92–100; BMI 19.8; BMI 19.9; BMI 19.5
[2023-08-08] MEDS: Ipratropium/Albuterol Sulfate 3 ML AMPUL.NEB INHALATION ×4 (03:10→16:11)
[2023-08-08] MEDS: Heparin Injection (Vial) 5,000 UNIT/ML VIAL 5000 UNIT SC ×2 (05:32→14:58)
[2023-08-08] MEDS: Ammonium Lactate 225 gm Bottle 1 APPLIC TOPICAL ×2 (05:32→14:57)
[2023-08-08] MEDS: Calcium Acetate 667 MG Capsule 1334 MG PO ×2 (08:09→11:33)
[2023-08-08] MEDS: Ergocalciferol 1.25 MG (50, 000 UNIT) Capsule PO (08:10)
[2023-08-08] MEDS: guaiFENesin 1,200 MG Tablet 1200 MG PO (08:10)
[2023-08-08] MEDS: Folic Acid/Vitamin B Comp W-C 1 Capsule 1 CAP PO (08:11)
[2023-08-08] MEDS: amLODIPine 5 MG Tablet PO (08:56)
[2023-08-08] MEDS: Carvedilol 12.5 MG Tablet PO (08:58)
--- NOTE | 2023-08-08 09:02 | PCM.PN.HOSP ---
Reason for Visit Reason for Visit: Diagnoses Acidosis, unspecified (08/05/23) Hyperkalemia (08/05/23) Pleural effusion, not elsewhere classified (08/05/23) End stage renal disease (08/05/23) Shortness of breath (08/05/23) Hypoxemia (08/05/23) Other nonspecific abnormal finding of lung field (08/05/23) Abnormal findings on diagnostic imaging of other specified body structures (08/05/23) Dependence on renal dialysis (08/05/23) Subjective Subjective Breathing well. Now on room air. Objective Data Objective Data Vital Signs: Vital Signs Temp Pulse Resp BP Pulse Ox O2 Del Method O2 Flow Rate 36.8 C 65 18 150/66 H 94 Room Air 2 08/08/23 04:45 08/08/23 06:50 08/08/23 06:50 08/08/23 04:45 08/08/23 06:50 08/08/23 06:50 08/07/23 13:19 Oxygen Flow Rate (L/min) [4] 3 Oxygen Flow Rate (L/min) [3] 3 Oxygen Flow Rate (L/min) [2] 3 Oxygen Flow Rate (L/min) [1 ( 3 Initial Baseline)] Oxygen Flow Rate (L/min) [4] 3 Oxygen Flow Rate (L/min) [3] 3 Oxygen Flow Rate (L/min) [2] 3 Oxygen Flow Rate (L/min) [1 ( 3 Initial Baseline)] Oxygen Flow Rate (L/min) 2 Oxygen Delivery Method [4] Nasal Cannula Oxygen Delivery Method [3] Nasal Cannula Oxygen Delivery Method [2] Nasal Cannula Oxygen Delivery Method [1 ( Nasal Cannula Initial Baseline)] Oxygen Delivery Method [4] Nasal Cannula Oxygen Delivery Method [3] Nasal Cannula Oxygen Delivery Method [2] Nasal Cannula Oxygen Delivery Method [1 ( Nasal Cannula Initial Baseline)] Oxygen Delivery Method Room Air Weight: 59.1 kg Body Mass Index (BMI) 19.3 Intake & Output: Intake and Output for Last 24 Hours 08/06/23 08/07/23 08/08/23 23:59 23:59 23:59 Intake Total 100 / 240 280 / 560 420 / 420 Output Total 3970 / 3970 1100 / 1100 Balance -3870 / -3730 -820 / -540 420 / 420 Medical Nutrition Assessment Dietitian: Malnutrition Criteria Met Start: 08/06/23 15:52 Freq: Status: Active Protocol: Document 08/06/23 15:52 RMA (Rec: 08/06/23 15:52 RMA [id number]) Nutrition Malnutrition Evidence of Malnutrition Exists Yes Malnutrition (severe): Chronic Evidenced By Suboptimal Energy Intake ( Severe),Weight Loss (Severe) Clinical Problem Chronic Disease or Condition Related Malnutrition Etiology Severe protein-calorie malnutrition in the context of chronic disease related to inadequate oral intake Signs/Symptoms as evidenced by ~9% unintentional weight loss x 2 months, BMI 19.2 and PO meeting less than 50% estimated nutrition needs x 2- 3 months Status Active Problem Recommendation Dietitian Recommendations/Changes Will adjust diet to renal/ consistent carbohydrate. Will continue Nepro PO 120mL 3 times per day w/ medpass. Pt avoids milk due to induces diarrhea. Additional ONS as PO established. Lab / Micro Data 08/07/23 06:29 08/07/23 06:29 Micro: Microbiology 08/06/23 13:40 Fluid - Thoracentesis Fluid Gram Stain - Final 08/06/23 13:40 Fluid - Thoracentesis Fluid Body Fluid Culture - Preliminary No growth-Final to follow 08/06/23 13:40 Fluid - Thoracentesis Fluid Anaerobic Culture - Preliminary No growth in 48 hours. 08/05/23 15:29 Blood Culture (Wb) - Anticubital Right Blood Culture - Preliminary No growth in 48 hours. 08/05/23 13:40 Blood Culture (Wb) - Anticubital Right Blood Culture - Preliminary No growth in 48 hours. 08/05/23 15:05 Mucosa - Nasopharyngeal Respiratory Panel (PCR) - Final Rhinovirus 08/05/23 13:40 Nasal Secretion SARS-CoV-2 & FLU Antigen (Rapid) - Final Radiography Diagnostic Testing: Radiology Impression Thoracentesis Ultrasound 08/07/23 07:00 IMPRESSION: Ultrasound-guided left thoracentesis. Electronically Signed: Samson Bob MD at 13:01 EDT , Chest X-Ray 08/07/23 12:22 IMPRESSION: No evidence of pneumothorax on the posterior left thoracentesis images. Electronically Signed: Samson Bob MD at 12:38 EDT , Physical Exam Const alert and no apparent distress HEENT head/scalp atraumatic and moist oral mucous membranes Cardio regular rate, regular rhythm, S1 normal heart sound and S2 normal heart sound GI normal to inspection, nondistended, normoactive bowel sounds, soft to palpation, non-tender and non-distended Assessment & Plan Assessment/Plan (1) Pleural effusion: PLAN: Bilateral pleural effusions. R > L Appears transudative based on Light's Criteria. Pt underwent a right-side thoracentesis on 08/06 which removed 1270 cc. Repeat thoracentesis ordered for the left side today removed 1.1 liters of fluid. Sent off for cytology. (2) Lung mass: PLAN: Concerning for malignancy Check cytology on thoracentesis, if negative, eventually will require CT-guided biopsy of lung mass. Follow up with pulmonology. (3) Hypoxia: PLAN: POA and now resolved. 2/2 pleural effusions and rhinovirus Reported 88% on 2l. 28mmHg on ABG (though I suspect it was a VBG) wean oxygen as tolerated. (4) Hyperkalemia: PLAN: Patient was actually on potassium as outpatient. This will be discontinued moving forward. Continue with dialysis per nephrology. (5) Lactic acidosis: PLAN: likely 2/2 hypoxia. resolved no additional work up. PLAN: Plan Chronic conditions: Chronic anemia secondary to end-stage renal disease-Counts are stable-Continue to monitor Chronic hyponatremia-Currently mild at 135-Volume management with dialysis Left foot diabetic foot wound-Follows with [facility] podiatry and the wound center-Previous left second digit amputation-Recent debridement on 07/24/2023 by podiatry-Is on doxycycline 100 mg p.o. twice daily for 14 days which was started on 07/24/2023 with a stop date of 08/07/2023. Culture shows staph epi with resistance to quinolones-Consult wound care NM-9-Beppikc is currently not taking any medication for his diabetes but he has been having elevated blood sugars at home-Last hemoglobin was A1c was 5.9 on 05/13/2023-He required some basal insulin with steroid use but will monitor for now-SSI End-stage renal disease on HD-MWF HD-Continue home phosphate binder and daily vitamin-Consult nephrology-Dr. Hamilton Chronic systolic heart failure-Last echocardiogram was performed Hypertension-Continue home medication once verified Hyperlipidemia-It does not appear patient is currently on any regimen for hyperlipidemia-Recommend outpatient follow-up History of stroke-We will hold Plavix for now given need for thoracentesis and possible lung nodule biopsy History of GOKUL-Continue home CPAP Debility-Consult PT/OT-Patient is currently residing at [facility] may need pre-CERT to return-We will consult social work/case management coordinator History of colon cancer status post colectomy-Hemoglobin stable-No current issues Tobacco abuse-Last use was about a week ago-Patient defers need for any nicotine replacement therapy stating it will make him crazy History of alcohol abuse-Last use was 14 years ago DVT prophylaxis -Subcu heparin 3 times daily CODE STATUS Full code. Disposition: to [facility] 08/06: Discussed with the patient's daughter Jovita about the pleural effusion, follow-up for cytology if that is negative then patient will likely need an outpatient CT-guided biopsy of the lung mass.
[2023-08-08 09:21] LABS: Pathologist Comment/Body Fluid Reviewed
--- NOTE | 2023-08-08 10:02 | PCM.PN.REN ---
Subjective Subjective Resting in bed, no complaints and states breathing better. Objective Data Objective Data Vital Signs: Vital Signs Temp Pulse Resp BP Pulse Ox O2 Del Method O2 Flow Rate 98.2 F 65 18 150/66 H 94 Room Air 2 08/08/23 04:45 08/08/23 06:50 08/08/23 06:50 08/08/23 04:45 08/08/23 06:50 08/08/23 06:50 08/07/23 13:19 Oxygen Flow Rate (L/min) [4] 3 Oxygen Flow Rate (L/min) [3] 3 Oxygen Flow Rate (L/min) [2] 3 Oxygen Flow Rate (L/min) [1 ( 3 Initial Baseline)] Oxygen Flow Rate (L/min) [4] 3 Oxygen Flow Rate (L/min) [3] 3 Oxygen Flow Rate (L/min) [2] 3 Oxygen Flow Rate (L/min) [1 ( 3 Initial Baseline)] Oxygen Flow Rate (L/min) 2 Oxygen Delivery Method [4] Nasal Cannula Oxygen Delivery Method [3] Nasal Cannula Oxygen Delivery Method [2] Nasal Cannula Oxygen Delivery Method [1 ( Nasal Cannula Initial Baseline)] Oxygen Delivery Method [4] Nasal Cannula Oxygen Delivery Method [3] Nasal Cannula Oxygen Delivery Method [2] Nasal Cannula Oxygen Delivery Method [1 ( Nasal Cannula Initial Baseline)] Oxygen Delivery Method Room Air Weight: 59.1 kg Body Mass Index (BMI) 19.3 Intake & Output: Intake and Output for Last 24 Hours 08/06/23 08/07/23 08/08/23 23:59 23:59 23:59 Intake Total 100 / 240 280 / 560 420 / 420 Output Total 3970 / 3970 1100 / 1100 Balance -3870 / -3730 -820 / -540 420 / 420 Medical Nutrition Assessment Dietitian: Malnutrition Criteria Met Start: 08/06/23 15:52 Freq: Status: Active Protocol: Document 08/06/23 15:52 RMA (Rec: 08/06/23 15:52 RMA [id number]) Nutrition Malnutrition Evidence of Malnutrition Exists Yes Malnutrition (severe): Chronic Evidenced By Suboptimal Energy Intake ( Severe),Weight Loss (Severe) Clinical Problem Chronic Disease or Condition Related Malnutrition Etiology Severe protein-calorie malnutrition in the context of chronic disease related to inadequate oral intake Signs/Symptoms as evidenced by ~9% unintentional weight loss x 2 months, BMI 19.2 and PO meeting less than 50% estimated nutrition needs x 2- 3 months Status Active Problem Recommendation Dietitian Recommendations/Changes Will adjust diet to renal/ consistent carbohydrate. Will continue Nepro PO 120mL 3 times per day w/ medpass. Pt avoids milk due to induces diarrhea. Additional ONS as PO established. Lab / Micro Data 08/07/23 06:29 08/07/23 06:29 Labs: Laboratory Results - last 24 hr 08/06/23 13:40: Fl Pathologist Comment Reviewed Micro: Microbiology 08/06/23 13:40 Fluid - Thoracentesis Fluid Gram Stain - Final 08/06/23 13:40 Fluid - Thoracentesis Fluid Body Fluid Culture - Preliminary No growth-Final to follow 08/06/23 13:40 Fluid - Thoracentesis Fluid Anaerobic Culture - Preliminary No growth in 48 hours. 08/05/23 15:29 Blood Culture (Wb) - Anticubital Right Blood Culture - Preliminary No growth in 48 hours. 08/05/23 13:40 Blood Culture (Wb) - Anticubital Right Blood Culture - Preliminary No growth in 48 hours. 08/05/23 15:05 Mucosa - Nasopharyngeal Respiratory Panel (PCR) - Final Rhinovirus 08/05/23 13:40 Nasal Secretion SARS-CoV-2 & FLU Antigen (Rapid) - Final Radiography Diagnostic Testing: Radiology Impression Thoracentesis Ultrasound 08/07/23 07:00 IMPRESSION: Ultrasound-guided left thoracentesis. Electronically Signed: Samson Bob MD at 13:01 EDT , Chest X-Ray 08/07/23 12:22 IMPRESSION: No evidence of pneumothorax on the posterior left thoracentesis images. Electronically Signed: Samson Bob MD at 12:38 EDT , Physical Exam Narrative Alert and oriented x3, no apparent distress S1, S2, RRR Diminished breath sounds, no rales Abdomen soft, nontender No pitting edema AV fistula left arm accessed for hemodialysis Assessment & Plan Assessment/Plan (1) End-stage renal disease on hemodialysis: (2) Hyperkalemia: (3) Lung mass: (4) Shortness of breath: PLAN: Plan - ESRD on HD Sat///Sat; last HD Saturday. K+ 5.3 yesterday, will plan for HD today 2k bath. Continue renal diet - lung mass concerning for malignancy and bilateral pleural effusions s/p thoracentesis with total ~2.3L removed. - anemia of chronic disease; hgb 10 - discussed nephrology plan with Dr. Cantrell and discharge planning team.
[2023-08-08] MEDS: PureFlow B 2K Dialysis Soln 1 BAG 6 BAG PF (11:00)
[2023-08-08] MEDS: 0.9% Normal Saline 1,000 ML IV.SOLN. 1000 ML OPERA.SITE (11:00)
--- NOTE | 2023-08-08 13:19 | CASEMGMT ---
Discharge Planning [facility] has obtained auth. SW updated. Monica Locke, Discharge Planning Asst.
--- NOTE | 2023-08-08 13:43 | DS.PCM_ITS ---
Providers Date of Admission: 08/05/23 Primary Care Physician: Dr. Fay Diaz MD Consultations 08/05/23 17:38 Consult: Nephrology Routine Consulting Provider: Marck Segura Reason for Consult: ESRD-HD EMERGENT Consult: No MD Notified: Yes Date Notified: 08/05/23 Time Notified: 18:33 Method of Notification: Answering Service Consult: Onc/Wound/cigarette machine operator Routine Comment: Reason for Consult:: LLE diabetic foot wound Reason For Visit: RESPITORY FAILURE, COPD,HYPOXIA Diagnosis Discharge Diagnosis (1) Pleural effusion: Status: Acute Code(s): J90 - Pleural effusion, not elsewhere classified Plan: Bilateral pleural effusions. R > L Appears transudative based on Light's Criteria. Pt underwent a right-side thoracentesis on 08/06 which removed 1270 cc. Repeat thoracentesis ordered for the left side today removed 1.1 liters of fluid. Sent off for cytology. (2) Lung mass: Status: Acute Code(s): R91.8 - Other nonspecific abnormal finding of lung field Plan: Concerning for malignancy Check cytology on thoracentesis, if negative, eventually will require CT-guided biopsy of lung mass. Follow up with pulmonology. (3) Hypoxia: Status: Acute Code(s): R09.02 - Hypoxemia Plan: POA and now resolved. 2/2 pleural effusions and rhinovirus Reported 88% on 2l. 28mmHg on ABG (though I suspect it was a VBG) wean oxygen as tolerated. (4) Hyperkalemia: Status: Acute Code(s): E87.5 - Hyperkalemia Plan: Patient was actually on potassium as outpatient. This will be discontinued moving forward. Continue with dialysis per nephrology. (5) Lactic acidosis: Status: Acute Code(s): E87.20 - Acidosis, unspecified Plan: likely 2/2 hypoxia. resolved no additional work up. Plan Chronic conditions: * Chronic anemia secondary to end-stage renal disease-Counts are stable-Continue to monitor * Chronic hyponatremia-Currently mild at 135-Volume management with dialysis * Left foot diabetic foot wound-Follows with [facility] podiatry and the wound center- Previous left second digit amputation-Recent debridement on 07/24/2023 by podiatry-Is on doxycycline 100 mg p.o. twice daily for 14 days which was started on 07/24/2023 with a stop date of 08/07/2023. Culture shows staph epi with resistance to quinolones-Consult wound care * [place]-1-Hbssqba is currently not taking any medication for his diabetes but he valentino s been having elevated blood sugars at home-Last hemoglobin was A1c was 5.9 on 05/13/2023-He required some basal insulin with steroid use but will monitor for now-SSI * End-stage renal disease on HD-MWF HD-Continue home phosphate binder and daily vitamin-Consult nephrology-Dr. Hamilton * Chronic systolic heart failure-Last echocardiogram was performed * Hypertension-Continue home medication once verified * Hyperlipidemia-It does not appear patient is currently on any regimen for hyperlipidemia-Recommend outpatient follow-up * History of stroke-We will hold Plavix for now given need for thoracentesis and possible lung nodule biopsy * History of GOKUL-Continue home CPAP * Debility-Consult PT/OT-Patient is currently residing at [facility] may need pre-CERT to return-We will consult social work/residential case manager * History of colon cancer status post colectomy-Hemoglobin stable-No current issues * Tobacco abuse-Last use was about a week ago-Patient defers need for any nicotine replacement therapy stating it will make him crazy * History of alcohol abuse-Last use was 14 years ago DVT prophylaxis -Subcu heparin 3 times daily CODE STATUS Full code. Disposition: to [facility] 08/06: Discussed with the patient's daughter Jovita about the pleural effusion, follow-up for cytology if that is negative then patient will likely need an outpatient CT-guided biopsy of the lung mass. Medications at Discharge Home Medications acetaminophen 325 mg tablet (Tylenol) 650 mg PO Q4H PRN PRN Pain Score 1-10/Temp > 100.7 F 10/10/21 ammonium lactate 12 % lotion 1 applic topical TID dry skin 02/17/22 bisacodyl 10 mg rectal suppository 10 mg [place] DAILY PRN Constipation 02/17/22 calcium acetate(phosphat bind) 667 mg capsule 1,334 mg PO TID binder 02/17/22 loperamide 2 mg capsule 2 mg PO Q6H PRN Diarrhea 02/17/22 triamcinolone acetonide 0.1 % topical cream 1 applic topical BID PRN psoriasis 02/17/22 amlodipine 5 mg tablet 5 mg PO BID blood pressure 05/26/23 carvedilol 3.125 mg tablet 12.5 mg PO BID heart health 05/26/23 clopidogrel 75 mg tablet (Plavix) 75 mg PO DAILY antiplatelet 05/26/23 cholecalciferol (vitamin D3) 125 mcg (5,000 unit) tablet (Vitamin D3) 125 mcg PO .monthly supplement 07/24/23 clonidine HCl 0.2 mg tablet 0.2 mg PO DAILY PRN hypertensive emergency 07/24/23 guaifenesin 100 mg/5 mL oral liquid 200 mg PO Q6H PRN cough 07/24/23 insulin lispro 100 unit/mL subcutaneous pen (Humalog KwikPen (U-100) Insulin) 1 sliding scale dose subcut TID diabetes 07/24/23 magnesium hydroxide 30 ml PO .1 PRN constipation 08/05/23 vitamin B complex-vitamin C-folic acid 0.8 mg tablet (Nephro-Lola) 1 tab PO DAILY supplement 08/05/23 Hospital Course Operations None Procedures Dialysis and Thoracentesis Summary of Care Provided Minutes Spent on Discharge: 35 Hospital Course: Patient presents with shortness of breath and hypoxia. Patient had bilateral pleural effusions. Patient underwent ultrasound-guided thoracentesis on the right and left, removing 1.2 and 1.1 L respectively on the and , respectively. Patient actually wind up being on room air for the second thoracentesis. The fluid appeared to be transudative based on Light's criteria. Patient does have a right upper lobe mass. Concerning that could be malignancy. The fluid was sent off for cytology which is still pending. If the cytology is positive for malignancy, patient will need to be referred to oncology. If it is negative, patient will need to have a CT-guided biopsy of the lower right lung mass. Patient to follow-up with pulmonology to have the fluid followed up and further facilitation of future plans based on the cytology results. Additionally, patient did have rhinovirus. That did not require any treatment. Patient to be discharged in stable condition. Patient did continue with his dialysis while he was here and there is no complications with that. Medical Records Data Medical Nutrition Assessment Dietitian: Malnutrition Criteria Met Start: 08/06/23 15:52 Freq: Status: Active Protocol: Document 08/06/23 15:52 RMA (Rec: 08/06/23 15:52 RMA [id number]) Nutrition Malnutrition Evidence of Malnutrition Exists Yes Malnutrition (severe): Chronic Evidenced By Suboptimal Energy Intake ( Severe),Weight Loss (Severe) Clinical Problem Chronic Disease or Condition Related Malnutrition Etiology Severe protein-calorie malnutrition in the context of chronic disease related to inadequate oral intake Signs/Symptoms as evidenced by ~9% unintentional weight loss x 2 months, BMI 19.2 and PO meeting less than 50% estimated nutrition needs x 2- 3 months Status Active Problem Recommendation Dietitian Recommendations/Changes Will adjust diet to renal/ consistent carbohydrate. Will continue Nepro PO 120mL 3 times per day w/ medpass. Pt avoids milk due to induces diarrhea. Additional ONS as PO established. Weight / BMI Weight Weight: 60 kg Body Mass Index (BMI) 19.5 ABG / Lab / Microbiology Data 08/07/23 06:29 08/07/23 06:29 Laboratory: Laboratory Results - last 24 hr 08/06/23 13:40: Fl Pathologist Comment Reviewed Microbiology: Microbiology 08/06/23 13:40 Fluid - Thoracentesis Fluid Gram Stain - Final 08/06/23 13:40 Fluid - Thoracentesis Fluid Body Fluid Culture - Preliminary No growth-Final to follow 08/06/23 13:40 Fluid - Thoracentesis Fluid Anaerobic Culture - Preliminary No growth in 48 hours. 08/05/23 15:29 Blood Culture (Wb) - Anticubital Right Blood Culture - Preliminary No growth in 48 hours. 08/05/23 13:40 Blood Culture (Wb) - Anticubital Right Blood Culture - Preliminary No growth in 48 hours. 08/05/23 15:05 Mucosa - Nasopharyngeal Respiratory Panel (PCR) - Final Rhinovirus 08/05/23 13:40 Nasal Secretion SARS-CoV-2 & FLU Antigen (Rapid) - Final D/C Instructions Discharge Diet: Renal Diet Meaningful Use Info Meaningful Use Diagnoses (Choose all that apply): None applicable Discharge Plan Admission Admit Date/Time: 08/05/23 15:24 Primary Reason for Your Visit: pleural effusion Attending Provider: Ramana Cantrell Primary Care Provider: Fay Diaz Consulting Providers: Marck Segura; Kaley Hamilton Instructions Patient Instructions: RAD RN Thoracentesis Dc Discharge Orders/Prescriptions Prescriptions: Continued acetaminophen [Tylenol] 325 mg tablet 650 mg PO Q4H PRN PRN (Reason: Pain Score 1-10/Temp > 100.7 F) ammonium lactate 12 % Lotion 1 applic TOPICAL TID loperamide 2 mg Capsule 2 mg PO Q6H PRN (Reason: Diarrhea) triamcinolone acetonide 0.1 % Cream 1 applic TOPICAL BID PRN (Reason: psoriasis) bisacodyl 10 mg Suppository 10 mg [place] DAILY PRN (Reason: Constipation) calcium acetate(phosphat bind) 667 mg Capsule 1,334 mg PO TID Patient Comments: give with meals clonidine HCl 0.2 mg tablet 0.2 mg PO DAILY PRN (Reason: hypertensive emergency) Patient Comments: take as needed for bp >160 guaifenesin 100 mg/5 mL liquid 200 mg PO Q6H PRN (Reason: cough) insulin lispro [Humalog KwikPen Insulin] 100 unit/mL insulin pen 1 sliding scale dose subcut TID Rx Instructions: takes 2 units subcutaneously in the afternoon cholecalciferol (vitamin D3) [Vitamin D3] 125 mcg (5,000 unit) tablet 125 mcg PO .monthly Patient Comments: on the amlodipine 5 mg tablet 5 mg PO BID clopidogrel [Plavix] 75 mg tablet 75 mg PO DAILY carvedilol 3.125 mg Tablet 12.5 mg PO BID Nephro-Lola 0.8 mg tablet 1 tab PO DAILY magnesium hydroxide [Weinberg Milk of Magnesia] 30 ml PO .1 PRN (Reason: constipation) Discontinued potassium chloride 10 mEq capsule, extended release 20 meq PO DAILY Referrals / Follow Up: [facility] [Provider Group] - Within 2 Weeks Fay Diaz MD [Primary Care Provider] - Within 1 Week Disposition Disposition (needs filled in before D/C Order can be placed): Custodial Facility
[2023-08-08] MEDS: Menthol/Lanolin/Calamine/Znox 113 GM Tube 1 APPLIC TOPICAL (14:57)
--- NOTE | 2023-08-08 15:36 | CASEMGMT ---
Discharge Planning Discharge orders, signed med list and transport time sent to [facility] via [facility]. [facility] will transport patient by wheelchair at 4p. Nursing, SW, patient and his daughter updated. Monica Locke, Discharge Planning Asst.
== END 2023-08-08 17:02 | disposition skilled nursing facility (03) | DRG 186 ==
LOC: ED 15:07 → MS3 16:28
PROVIDERS: Nurse Practitioner; Nurse Practitioner Acute Care; Admitting Provider Internal Medicine; Emergency Provider Emergency Medicine; PCP Internal Medicine
DX: J90 Pleural effusion, not elsewhere classified (principal); N18.6 End stage renal disease; E43 Unspecified severe protein-calorie malnutrition; E87.20 Acidosis, unspecified; E87.1 Hypo-osmolality and hyponatremia; I13.2 Hypertensive heart and chronic kidney disease with heart failure and with stage 5 chronic kidney disease, or end stage renal disease; I50.22 Chronic systolic (congestive) heart failure; D63.1 Anemia in chronic kidney disease; E11.22 Type 2 diabetes mellitus with diabetic chronic kidney disease; J44.9 Chronic obstructive pulmonary disease, unspecified; Z99.2 Dependence on renal dialysis; Z79.4 Long term (current) use of insulin; E11.65 Type 2 diabetes mellitus with hyperglycemia; E11.51 Type 2 diabetes mellitus with diabetic peripheral angiopathy without gangrene; E11.42 Type 2 diabetes mellitus with diabetic polyneuropathy; L97.519 Non-pressure chronic ulcer of other part of right foot with unspecified severity; E11.621 Type 2 diabetes mellitus with foot ulcer; E78.5 Hyperlipidemia, unspecified; E87.5 Hyperkalemia; S91.302A Unspecified open wound, left foot, initial encounter; F17.200 Nicotine dependence, unspecified, uncomplicated; Z82.3 Family history of stroke; R91.8 Other nonspecific abnormal finding of lung field; R59.0 Localized enlarged lymph nodes; Z86.73 Personal history of transient ischemic attack (TIA), and cerebral infarction without residual deficits; B97.89 Other viral agents as the cause of diseases classified elsewhere; Z85.038 Personal history of other malignant neoplasm of large intestine; Z68.20 Body mass index [BMI] 20.0-20.9, adult
CPT/HCPCS: 32555; 36415; 36600; 71045; 71046; 71250; 80048; 80053; 80076; 82803; 82945; 83605; 83615; 83735; 84100; 84157; 84484; 85025; 85610; 85730; 87040; 87070; 87075; 87205; 87428; 87633; 88108; 88305; 88313; 89050; 90937; 93005; 94640; 94668; 97162; 97166; 97802; 99252; 99284; J7030; J7040; A4216; G0257; G0463

== ENCOUNTER → 2023-08-09 | Outpatient (REF) | payer MEDICARE, MEDICAID, SELFPAY ==
[2023-08-09 08:11] LABS: Absolute Lymphocyte Count 1.34 X10^3/uL (0.83-4.51); Absolute Neutrophil Count 5.1 X10^3/uL (2.0-7.7); Eosinophil# 0.01 X10^3/uL; Eosinophils% 0.1 % (0-5); Hematocrit 32.9 % (40-54); Hemoglobin 10.6 g/dL (13.0-16.5); Lymphocyte # 1.34 X10^3/ul (0.83-4.51); Lymphocyte % 18.2 % (19-41); Mean Corp Hgb Conc 32.2 g/dL (32-36); Mean Corpuscular Hgb 34.4 pg (27.0-32.0); Mean Corpuscular Volume 106.8 fL (80-94); Mean Platelet Vol. 11.1 fl (6.2-12.0); Monocyte# 0.85 X10^3/uL; Monocyte% 11.5 % (0-10); NRBC Flagged by Analyzer 0 % (0-5); Neutrophil # 5.14 X10^3/uL (2.7-7.7); Neutrophil % 69.8 % (47-70); Platelet Count 141 K/mm3 (150-450); RBC Distribution Width CV 15.5 % (11.6-14.6); RBC Distribution Width SD 60.5 fl (35.1-43.9); Red Blood Count 3.08 M/mm3 (4.6-6.2); White Blood Count 7.4 K/mm3 (4.4-11.0)
[2023-08-09 08:30] LABS: Anion Gap 2 (5-15); BUN 56 mg/dL (7-18); BUN/Creat Ratio 10.9 RATIO (10-20); Calcium,Total 8.5 mg/dL (8.5-10.1); Chloride 102 mmol/L (98-107); Creatinine, Serum 5.13 mg/dL (0.70-1.30); EST Glomerular Filtration Rate 12 mL/min (>60); Est Glom Filt Rate - Afr Amer 14 mL/min (>60); Glucose 122 mg/dL (74-106); Magnesium 2.5 mg/dL (1.6-2.6); Potassium 5.1 mmol/L (3.5-5.1); Sodium Level 131 mmol/L (136-145)
[2023-08-09 09:56] LABS: Vitamin D,25 Hydroxy 59.4 ng/mL
[2023-08-09 19:20] LABS: Hemoglobin A1c 5.4 % (3.8-5.6)
== END ==
LOC: OLS.SW 05:00
PROVIDERS: PCP Internal Medicine; Visit Provider Internal Medicine
DX: Z02.2 Encounter for examination for admission to residential institution (principal); E11.22 Type 2 diabetes mellitus with diabetic chronic kidney disease; N18.5 Chronic kidney disease, stage 5
CPT/HCPCS: 36415; 80048; 82306; 83036; 83735; 85025

== ENCOUNTER 2023-08-28 14:25 | Outpatient (RCR) | payer MEDICARE, MEDICAID, SELFPAY ==
[2023-08-14 00:08] VITALS: BP 130/50; PULSE 48; RESP 18; TEMP 36.1; BMI 21.4
[2023-08-28 14:29] VITALS: BP 128/88; PULSE 53; RESP 18; TEMP 35.9; BMI 21.4
--- NOTE | 2023-08-28 16:18 | PCM.WC.PN ---
History of Present Illness Date of Service: 08/28/23 Chief Complaint: Diabetic foot ulceration, left foot History of Wound: Patient is a 82-year-old diabetic male presenting to the wound care center today [facility] for second evaluation for ulceration to the left foot. Patient was seen by an outside manager of environmental services at the [facility] for amputation of the left second digit and wound care. Patient is being seen today at the wound care center for evaluation and treatment. Patient is also on dialysis. He is currently residing at a facility. No treatment thus far to the left lateral wound underlying the subfifth metatarsal head. He admits to pain with weightbearing and touch. He denies trauma. Denies constitutional symptoms. No other pedal complaints at this time. Subjective Subjective Mr. Rodriguez is a 82-year-old diabetic male presenting to the wound care center today for follow-up of full-thickness ulceration to the lateral aspect of his left foot. Patient was recently hospitalized and seen by internal medicine and is planning to have a lung biopsy secondary to a shadow seen on radiograph. Patient mitts his pain is improved to the left foot but the wound is still present. He still resides at a intermediate facility. He denies trauma. Denies constitutional symptoms. No other pedal complaints at this time. Objective Data Objective Data Vital Signs: Vital Signs Temp Pulse Resp BP O2 Del Method 96.7 F L 53 L 18 128/88 H Room Air 08/28/23 14:29 08/28/23 14:29 08/28/23 14:29 08/28/23 14:29 08/28/23 14:29 Oxygen Delivery Method Room Air Weight: 65.771 kg Body Mass Index (BMI) 21.4 Physical Exam Narrative Vascular: DP and PT pulse are faintly palpable secondary to edema. CFT is delayed. Skin temperature is warm to cool from proximal ankle to distal digits to left lower extremity. +1 pitting edema appreciated to left foot Neurological light touch and epicritic station is intact. Patient response to painful stimuli. Dermatological: Evidence of dry eschar appreciated to the dorsum of the left foot which underlying skin is healed. There is evidence of a full-thickness ulceration to the subfifth metatarsal head eschar. Pain on palpation. No drainage noted. No probe to bone. Erythema with mild proximal streaking, improving. Excisional debridement down to including subcutaneous tissue of the full-thickness ulceration soft with metatarsal head of the left foot with a #15 blade without incident. Predebridement measurements are callus, postdebridement measurement is 0.9 x 0.4 x 0.2 cm. Musculoskeletal: Moderate bony tenderness appreciated full-thickness ulceration to the subfifth metatarsal head. No pain with calf compression. Debridement Note Debridement Note Debridement Free Text: Excisional debridement down to including subcutaneous tissue of the full-thickness ulceration soft with metatarsal head of the left foot with a #15 blade without incident. Predebridement measurements are callus, postdebridement measurement is 0.9 x 0.4 x 0.2 cm. Post-Debridement Measurements and Additional Note: Post-Debridement Measurements/Treatment WC - Nurse 1 - General Ulcer Assessment Start: 08/28/23 14:29 Freq: Status: Active Protocol: GINNY Activity Type Activity Date Activity User E-sign Co-sign Detail Recorded Client Recorded Date Recorded By Document 08/28/23 14:29 KW Desktop 08/28/23 14:40 KW 08/28/23 14:29 WC - Today's Visit Information Type of service Follow-up Visit (Physician/LABEL CUTTER ) Arrival Mode Wheelchair Patient Identification Verified (Name & Yes ) Height and Weight Body Mass Index (BMI) 21.4 BMI Classification Normal Vital Signs Temperature (97.8 F-99.1 F) 96.7 F L Temperature Source Temporal Pulse Rate (60-100) 53 L Pulse Location Monitor Respiratory Rate (12-18) 18 Respiratory rate source Observation Oxygen Delivery Method Room Air Blood Pressure (90/60-120/80) 128/88 H Blood Pressure Mean (mm Hg) 101 Source Monitor Position Sitting Blood Pressure Location Right Arm History Since Last Visit- (Skip if this is Patient's initial visit) Have you changed medications since your Yes last visit? Any new allergies or adverse reactions No Had a fall/change in ADL's that may No increase risk of falls Signs or symptoms of abuse and/or No neglect since last visit Have you been in the hospital since your No last visit? Has dressing in place as prescribed No Has compression in place as prescribed No Has offloadiing in place as prescribed Yes Experienced any changes in pain level or No management Left Footwear Surgical Shoe with pressure relief insole Right Footwear Regular Shoe Pain Scale: 0-10 Numeric Is Patient Pain Free? Yes - Nurse 1 - General Ulcer Measurement Start: 08/28/23 14:29 Freq: Status: Active Protocol: Activity Type Activity Date Activity User E-sign Co-sign Detail Recorded Client Recorded Date Recorded By Document 08/28/23 14:29 KW Desktop 08/28/23 14:40 KW 08/28/23 14:29 Wound Center Nurse 1 #1- L LAT FOOT -Current Size (cm) - Length 0.3 -Current Size (cm) - Width 0.6 -Current Size (cm) - Depth 0.1 -Total Square Cm 0.18 -Exudate Amt Small -Exudate Type Serosanguineous -Wound Margin Distinct, Outline Attached -Granulation Amt Small (1-33%) -Granulation Quality [place] -Necrosis Amt Small (1-33%) -Necrotic Tissue Type Adherent Slough -Texture (Doreen-wound Skin Appearance) Assessed,Callus -Moisture (Doreen-wound Skin Appearance) Assessed,Dry/ Scaly -Color (Doreen-wound Skin Appearance) Assessed -Temperature (Doreen-wound Skin No Abnormality Appearance) (Pt Warm) -Ulcer Cleansing Rinsed/ Irrigated with Saline -Foul Odor after Cleansing No -Anesthetic Used 5% Lidocaine Gel WC - Nurse 2 - General Ulcer CM Notes Start: 08/28/23 14:29 Freq: Status: Active Protocol: Activity Type Activity Date Activity User E-sign Co-sign Detail Recorded Client Recorded Date Recorded By Document 08/28/23 14:47 Laptop 08/28/23 14:49 08/28/23 14:47 Wound Center Nurse 2 -Time 14:48 -Correct Patient Yes -Correct Side, Site, Position Yes -Correct Procedure Yes -Procedure Performed Yes -Type of Procedure Debridement -Clinical Debridement Subcutaneous -Tissue Removed Subcutaneous -Post Debridement (cm) - Length 0.9 -Post Debridement (cm) - Width 0.4 -Post Debridement (cm) - Depth 0.2 -Total Square (Post) (cm) 0.36 -Area of Debridement (cm) - Length 0.9 -Area of Debridement (cm) - Width 0.4 -Total Square (Area) (cm) 0.36 -Tunneling No -Undermining/Tunneling No -Circular Undermining No -Wound/Ulcer Outcome Not Healed -Ulcer Cleansing Rinsed/ Irrigated with Saline -Foul Odor after Cleansing No -Bioengineered Tissue No -Bleeding Controlled with Pressure -Treatment Response Procedure Tolerated Well -Offloading Yes -Type of Offloading Surgical Shoe -Debridement - Subq, 1st 20sq cm Yes Pain Scale: 0-10 Numeric Is Patient Pain Free? Yes - Nurse 3 - General Ulcer D/C NN Start: 08/28/23 14:29 Freq: Status: Active Protocol: Activity Type Activity Date Activity User E-sign Co-sign Detail Recorded Client Recorded Date Recorded By Document 08/28/23 14:59 [facility] Desktop 08/28/23 15:00 [facility] 08/28/23 14:59 Wound Care Center Nurse 3 #1- L LAT FOOT -Ulcer Cleansing Rinsed/ Irrigated with Saline -Foul Odor after Cleansing No -Other Dressing HYDROGEL PER KW -Primary Dressing Covered/Secured with Dry Gauze & Roll Gauze, Secured with Tape Treatment Response Procedure Tolerated Well Pain Scale: 0-10 Numeric Is Patient Pain Free? Yes WC - Visit Discharge Discharge Condition Stable Ambulatory Status Wheelchair Transportation F Facility Type Group Home Care Facility Assessment/Plan Assessment/Plan (1) Ulcer of left foot with fat layer exposed: CODE(S): L97.522 - Non-pressure chronic ulcer of other part of left foot with fat layer exposed PLAN: Patient was examined and evaluated. All findings were discussed with the patient. All questions were answered the patient satisfaction. Excisional debridement down to including subcutaneous tissue of the full-thickness ulceration soft with metatarsal head of the left foot with a #15 blade without incident. Predebridement measurements are callus, postdebridement measurement is 0.9 x 0.4 x 0.2 cm. The left foot ulceration was dressed with Kenna Betadine paint and dry sterile dressing. Patient is to change his dressing every other day. Follow-up in 2 weeks. Orders were given to the patient intermediate facility for dressing changes. (2) Chronic painful diabetic polyneuropathy: CODE(S): E11.42 - Type 2 diabetes mellitus with diabetic polyneuropathy
== END 2023-09-12 23:59 | disposition home or self-care (01) ==
LOC: WC 14:25
PROVIDERS: PCP Internal Medicine; Referring Provider Internal Medicine; Visit Provider Podiatrist Foot & Ankle Surgery
DX: E11.621 Type 2 diabetes mellitus with foot ulcer (principal); L97.522 Non-pressure chronic ulcer of other part of left foot with fat layer exposed; Z79.4 Long term (current) use of insulin; M79.672 Pain in left foot; Z79.899 Other long term (current) drug therapy
CPT/HCPCS: 11042

== ENCOUNTER → 2023-09-11 | Outpatient (REF) | payer MEDICARE, MEDICAID, SELFPAY ==
[2023-09-11 09:11] LABS: Bacteria 0 SEEN /hpf (None Seen); Mucous, Urine 0 SEEN /hpf (<or=2+); Red Blood Cells-Urine 0 SEEN /hpf (0-5); White Blood Cells 0 SEEN /hpf (0-5)
[2023-09-11 10:11] LABS: Absolute Lymphocyte Count 1.46 X10^3/uL (0.83-4.51); Absolute Neutrophil Count 3.6 X10^3/uL (2.0-7.7); Basophil# 0.04 X10^3/uL; Basophil% 0.7 % (0-1); Eosinophils% 1.6 % (0-5); Hematocrit 25.9 % (40-54); Hemoglobin 8.2 g/dL (13.0-16.5); Lymphocyte # 1.46 X10^3/ul (0.83-4.51); Lymphocyte % 23.8 % (19-41); Mean Corp Hgb Conc 31.7 g/dL (32-36); Mean Corpuscular Hgb 34.6 pg (27.0-32.0); Mean Corpuscular Volume 109.3 fL (80-94); Mean Platelet Vol. 10.8 fl (6.2-12.0); Monocyte# 0.88 X10^3/uL; Monocyte% 14.3 % (0-10); NRBC Flagged by Analyzer 0 % (0-5); Neutrophil # 3.64 X10^3/uL (2.7-7.7); Neutrophil % 59.3 % (47-70); Platelet Count 175 K/mm3 (150-450); RBC Distribution Width CV 15.3 % (11.6-14.6); RBC Distribution Width SD 60.8 fl (35.1-43.9); Red Blood Count 2.37 M/mm3 (4.6-6.2); White Blood Count 6.1 K/mm3 (4.4-11.0)
[2023-09-11 10:13] LABS: Anion Gap 6 (5-15); BUN 33 mg/dL (7-18); BUN/Creat Ratio 6.6 RATIO (10-20); Calcium,Total 8.4 mg/dL (8.5-10.1); Chloride 99 mmol/L (98-107); EST Glomerular Filtration Rate 12 mL/min (>60); Est Glom Filt Rate - Afr Amer 14 mL/min (>60); Glucose 112 mg/dL (74-106); Potassium 4.6 mmol/L (3.5-5.1); Sodium Level 135 mmol/L (136-145)
[2023-09-11 10:28] LABS: Vitamin B12 549 pg/mL (211-911); Vitamin D,25 Hydroxy 46.9 ng/mL
[2023-09-11 10:31] LABS: Color, Urine Yellow (Yellow); Glucose, Dipstick Normal (Normal); Ketone-Dipstick Negative (Negative); Leukocyte Esterase-Dipstick Negative /ul (Negative); Nitrite-Dipstick Negative (Negative); Occult Blood-Urine Negative /ul (Negative); Protein-Dipstick 100 mg/dl (Negative); Urine Bilirubin Dipstick Negative (Negative); Urine Clarity Sl. Cloudy (Clear); Urine Urobilinogen Normal (Normal)
[2023-09-11 10:55] LABS: Squamous Epithelial Cells - UA 0-5 SEEN /hpf (0-5); Transitional Epithelial - Ur 0-5 SEEN /hpf (0-5)
== END ==
LOC: OLS.SWAL 07:00
PROVIDERS: PCP Internal Medicine; Visit Provider Internal Medicine
DX: E11.22 Type 2 diabetes mellitus with diabetic chronic kidney disease (principal); E55.9 Vitamin D deficiency, unspecified; N18.9 Chronic kidney disease, unspecified; Z79.899 Other long term (current) drug therapy
CPT/HCPCS: 36415; 80048; 81001; 82306; 82607; 85025; 87086; 87088

== ENCOUNTER 2023-09-16 07:51 | Outpatient (CLI) | payer MEDICARE, MEDICAID, SELFPAY ==
[2023-09-16] VITALS (16 sets, daily range): BP systolic 136–173; BP diastolic 51–94; PULSE 50–84; RESP 14–18; TEMP 36.7; O2SAT 87–100; BMI 20.9
--- NOTE | 2023-09-16 | ASPIGT_PTH ---
PATIENT: ABEL SOLIS LOC: CT U#:[id number] AGE/SX: 82/M ROOM: RE09/16/[address]: Dr. Eddy Mclean MD : 1940 BED: DIS: 09/16/2023 SPEC #: [id number] RECD: 09/16/23 09:35 STATUS: RACHNA JOANNE #: [id number] LOS: 09/16/23 00:[address]: Eddy Mclean DEPT: SURGICAL PATHOLOGY RECD BY: Tiffanie Garcia ENTERED: 09/16/23 11:17 SP TYPE: ASP RAD OTHR DR: Dr. Fay Diaz MD Tissues: Lung, NOS Procedures: FNA Specimen Adequacy Special Stain Group II Surgery Specimen Level IV Imprint (control) HEADER OPERATION: CT-guided right upper lobe lung biopsy PRE-OP DIAGNOSIS: Right upper lobe lung mass TISSUE SUBMITTED: Right upper lobe lung mass 20-gauge core x5 MICROSCOPIC DIAGNOSIS Right upper lobe lung mass, CT-guided core biopsy: Non-small cell carcinoma, favor adenosquamous carcinoma. See comment. ELIAS:gil 09/17/2023 COMMENT The specimen is evaluated at the time of biopsy by Dr. Paniagua. Immediate Evaluation = Malignant cells present derived from non-small cell carcinoma. Immunohistochemistry ([id number]) supports the above diagnosis. Molecular studies on the tumor can be performed if clinically indicated. Please notify the laboratory if they are needed. Case has been reviewed in consultation with Dr. De La Rosa who concurs with the above diagnosis. IDC:AM MICROSCOPIC DESCRIPTION Slides are reviewed. GROSS DESCRIPTION Received in fixative is one container labeled with the patient's name and designated right upper lobe lung biopsy. The specimen consists of multiple irregular fragments of fonseca soft tissue that in aggregate measure 1.0 x 0.2 x 0.1 cm. The specimen is totally submitted in one cassette. Two touch imprints are prepared at the time of core biopsy. / ELIAS:gil 09/16/2023 TC:0 CPT: 36510, 80831
[2023-09-16 08:39] LABS: Platelet Count 188 K/mm3 (150-450)
[2023-09-16] MEDS: 0.9% Normal Saline (250mL Bag) 250 ML 15 ML IV ×2 (08:48→09:27)
[2023-09-16] MEDS: 0.9% Saline Lock 10 ML Syringe IV (08:49)
[2023-09-16 09:05] LABS: International Normalized Ratio 1.1; Prothrombin Time (Protime)PT. 14.3 SECONDS (11.7-14.9)
--- NOTE | 2023-09-16 09:15 | RAD_ITS ---
STUDY: X-RAY CHEST REASON FOR EXAM: Male, 82 years old. Immediately post lung biopsy -- Immediately post lung biopsy TECHNIQUE: AP inspiration and expiration views. COMPARISON: Comparison is made with prior study August 07, 2023. FINDINGS: The patient is status post right lung biopsy. No evidence of pneumothorax. RAD/Chest Insp/Exp 2 View IMPRESSION: No evidence of pneumothorax on the immediate post right lung biopsy radiographs. Electronically Signed: Samson Bob MD at 10:11 EST ,
[2023-09-16] MEDS: Midazolam 2 MG/2 ML Syringe IV (09:22)
[2023-09-16] MEDS: fentaNYL 100 MCG/2 ML Ampul IV (09:26)
--- NOTE | 2023-09-16 09:30 | IMM_PTH ---
PATIENT: ABEL SOLIS LOC: CT U#:[id number] AGE/SX: 82/M ROOM: RE09/16/[address]: Dr. Eddy Mclean MD : 1940 BED: DIS: 09/16/2023 SPEC #: [id number] RECD: 09/16/23 14:29 STATUS: RACHNA REWindy #: [id number] LOS: 09/16/23 09:[address]: Eddy Mclean DEPT: IMMUNOHISTOCHEMISTRY RECD BY: Irena Murillo ENTERED: 09/16/23 14:30 SP TYPE: IMMUNO OTHR DR: Dr. Fay Diaz MD Tissues: Right upper lobe of lung, NOS Procedures: RCC (add) NAPSIN A (add) CK20 (add) CK5-6 (add) CK7 (add) CK8 (add) HEP PAR (add) TTF1 (add) Pankeratin (initial) P40 (add) PSAP (add) PHYSICIAN & [address] [address] SPECIMEN INFORMATION: Tissue Source: Right upper lobe of lung Clinical Info: Right upper lobe of lung mass Specimen Number: [id number] CPT code: 34667, 71073 x10 METHODOLOGY: Deparaffinized sections of prefer/formalin-fixed tissue or PAP/DQ stained slides are incubated with monoclonal/polyclonal antibodies/oligonucleotide probes. Localization is made via biotin free immunoperoxidase method. Appropriate controls are performed and reacted as expected. Results on target cell population are indicated in the following table: RESULTS: ANTIBODY / CLONE RESULT AE1-3 (AE1/AE3/PCK26) positive CK7 (OV-TL12/30) positive, focal CK8 (16nbxgG02) positive, weak CK20 (KS20.8) negative TTF-1 (8G7G3/1) positive, focal Napsin A (Rabbit Polyclonal) positive, focal HepPar (OCh1E5) negative RCC (PN-15) negative PSAP (PASE/4LJ) negative CK5-6 (D5 & 1684) positive, focal P40 (BC28) positive, focal These tests were developed and their performance characteristics determined by [facility]. They may not have been cleared or approved by the U.S. Food and Drug Administration. The FDA has determined that such clearance or approval is not necessary. The above immunohistochemical/dualISH markers are ordered and reviewed by the Pathologist. INTERPRETATION: Right upper lobe of lung mass, CT-guided core biopsy: Non-small cell carcinoma, favor adenosquamous carcinoma. SJ/bl 09/17/2023 Case has been reviewed in consultation with Dr. De La Rosa who concurs with the above diagnosis. IDC:AM
[2023-09-16] MEDS: Lidocaine 2% (20 ml mdv) 20 ML Vial INFILT (09:38)
--- NOTE | 2023-09-16 10:41 | PCM.OP.PRO ---
Procedure Report Date of Procedure: 09/16/23 Assessment & Plan Assessment/Plan (1) Lung mass: PLAN: PROCEDURE: CT GUIDED CORE NEEDLE LUNG BIOPSY ORDERING PROVIDER: Dr. Eddy Mclean INDICATION: Male, 82 years old. Right upper lobe mass. PROVIDER: BERHANE Victoria CONSENT: Written informed consent was obtained having explained the risks, benefits and alternatives in detail with the patient who accepted the risks and agreed to proceed. Laboratory review and clinical assessment was performed. PRE-PROCEDURE SEDATION ASSESSMENT: Current history and physical dictated by referring physician and reviewed. No clinical changes since date of exam. Patient has an ASA Class of 2. PROCEDURAL SEDATION PROTOCOL: The Drugs used were: 1 mg Versed, IV, and 25 mcg Fentanyl, IV. The sedation time was: 24 minutes, starting at 9:22 AM and terminated at 9:46 AM. The procedural sedation protocol was independently monitored by the department nurse. RADIATION DOSAGE (If Supplied By Facility): CTDIvol = 17.76 mGy, DLP = 396.60 mGycm Individualized dose optimization techniques were used for this CT. TECHNIQUE: The patient was placed in a supine position. A noncontrast CT was performed to localize the lesion in the right upper lobe. The skin surface was prepped and draped in a sterile fashion. 2% lidocaine was used for local anesthesia. Using CT guidance, a 20-gauge coaxial biopsy device was advanced to the periphery of the lesion. A total of 5 core specimens were obtained. Specimens were microscopically reviewed by pathology in the CT suite and placed in formalin solution. BioSentry tract sealant system was deployed at the biopsy site, and the biopsy needle was removed. A sterile occlusive dressing was applied to the biopsy site. The patient tolerated the procedure well. An immediate chest xray was ordered, per protocol. A negative biopsy does not exclude malignancy. Further imaging or clinical followup based on patient condition and degree of clinical suspicion for malignancy. Suggest rebiopsy, if biopsy results do not match with clinical scenario. IMPRESSION: 1. CT directed core needle biopsy of right upper lobe mass using CT image guidance with image documentation as described. Pathology results are pending. 2. Procedural Sedation protocol utilized with independent monitoring by the department nurse. Procedures Radiology Radiology CT Procedures: [id number] Biopsy Lung
--- NOTE | 2023-09-16 11:15 | RAD_ITS ---
STUDY: X-RAY CHEST REASON FOR EXAM: Male, 82 years old. 2 hours post lung biopsy -- 2 hours post lung biopsy TECHNIQUE: AP and inspiration expiration views. COMPARISON: Comparison is made with prior study done earlier today. FINDINGS: No evidence of pneumothorax on the 2 hour post right lung biopsy radiographs. RAD/Chest Insp/Exp 2 View IMPRESSION: No evidence of pneumothorax on the 2 hour post right lung biopsy radiographs. Electronically Signed: Samson Bob MD at 12:20 EST ,
== END 2023-09-16 23:59 | disposition home or self-care (01) ==
PROVIDERS: Nurse Practitioner Acute Care; PCP Internal Medicine; Referring Provider Internal Medicine Critical Care Medicine; Visit Provider Internal Medicine Critical Care Medicine
DX: Z01.818 Encounter for other preprocedural examination (principal); R91.8 Other nonspecific abnormal finding of lung field
CPT/HCPCS: 32408; 71046; 77012; 85049; 85610; 85730; 88172; 88305; 88313; 88341; 88342; 99156; J7050; A4216; C2613

== ENCOUNTER 2023-09-24 09:49 | Day surgery (SDC) | payer MEDICARE, MEDICAID, SELFPAY ==
[2023-09-24 07:13] VITALS: BMI 26.9
--- NOTE | 2023-09-24 10:16 | HP.PCM_ITS ---
History and Physical Date of Admission: 09/24/23 Visit Reasons: check arm swelling per Miracle carver Chief Complaint: check arm swelling Is patient in pain?: No Allergies milk Allergy (Intermediate, Verified 09/17/23 09:01) Diarrheavarenicline tartrate [From Chantix] Allergy (Verified 09/17/23 09:01) makes me weird, hallucinations Medications acetaminophen 325 mg tablet (Tylenol) 650 mg PO Q4H PRN PRN Pain Score 1-10/Temp > 100.7 F 10/10/21 [History Confirmed 09/17/23] ammonium lactate 12 % lotion 1 applic topical TID dry skin 02/17/22 [History Confirmed 09/17/23] bisacodyl 10 mg rectal suppository 10 mg AR DAILY PRN Constipation 02/17/22 [History Confirmed 09/17/23] calcium acetate(phosphat bind) 667 mg capsule 1,334 mg PO TID binder 02/17/22 [History Confirmed 09/17/23] loperamide 2 mg capsule 2 mg PO Q6H PRN Diarrhea 02/17/22 [History Confirmed 09/17/23] triamcinolone acetonide 0.1 % topical cream 1 applic topical BID PRN psoriasis 02/17/22 [History Confirmed 09/17/23] amlodipine 5 mg tablet 5 mg PO BID blood pressure 05/26/23 [History Confirmed 09/17/23] cholecalciferol (vitamin D3) 125 mcg (5,000 unit) tablet (Vitamin D3) 125 mcg PO .monthly supplement 07/24/23 [History Confirmed 09/17/23] clonidine HCl 0.2 mg tablet 0.2 mg PO DAILY PRN hypertensive emergency 07/24/23 [History Confirmed 09/17/23] guaifenesin 100 mg/5 mL oral liquid 200 mg PO Q6H PRN cough 07/24/23 [History Confirmed 09/17/23] insulin lispro 100 unit/mL subcutaneous pen (Humalog KwikPen (U-100) Insulin) 1 sliding scale dose subcut TID diabetes 07/24/23 [History Confirmed 09/17/23] magnesium hydroxide 30 ml PO .1 PRN constipation 08/05/23 [History Confirmed 09/17/23] vitamin B complex-vitamin C-folic acid 0.8 mg tablet (Nephro-Lola) 1 tab PO DAILY supplement 08/05/23 [History Confirmed 09/17/23] acetaminophen 650 mg rectal suppository 650 mg AR Q4H PRN 08/26/23 [History Confirmed 09/17/23] aluminum-magnesium hydroxide 225 mg-200 mg/5 mL oral suspension 30 ml PO Q4H PRN 08/26/23 [History Confirmed 09/17/23] carvedilol 12.5 mg tablet 12.5 mg PO BID 08/26/23 [History Confirmed 09/17/23] glucagon 1 mg solution for injection (Glucagon Emergency Kit) 1 mg subcut Q20M PRN 08/26/23 [History Confirmed 09/17/23] insulin lispro 100 unit/mL subcutaneous pen (Humalog Tempo Pen (U-100) Insulin) 2 unit subcut .AFTERNOON 08/26/23 [History Confirmed 09/17/23] mineral oil (Fleet Mineral Oil enema) 118 ml AR DAILY PRN 08/26/23 [History Confirmed 09/17/23] PFS Medical History (Updated 09/17/23 @ 08:58 by Mae Weinberg) Anemia Asthma Atrial fibrillation Benign essential HTN Brain aneurysm Chronic renal failure, stage 5 Closed head injury Colon polyps COPD (chronic obstructive pulmonary disease) CVA (cerebral vascular accident) Diabetes Dialysis complication Dialysis patient End stage renal disease End-stage renal disease on hemodialysis Fall Febrile illness, acute Fistula HCAP (healthcare-associated pneumonia) Hepatitis C History of GI bleed Hyperlipemia Hyponatremia Kidney disease Leukocytosis LFT elevation Metabolic encephalopathy Multifocal pneumonia NSTEMI, initial episode of care On home oxygen therapy Pneumonia Problem with dialysis access PVD (peripheral vascular disease) Sleep apnea Smoker TIA (transient ischemic attack) Tobacco use disorder Troponin level elevated Type II diabetes mellitus, uncontrolled Surgical History history insertion dialysis catheter (~11/04/20) History of cataract extraction History of colectomy History of colonoscopy (~06/2020) History of surgery on left wrist History of vein stripping Family History Mother CVA (cerebral vascular accident) Diabetes HypertensionFather Colon cancer DiabetesBrother Diabetes Social History (Updated 08/26/23 @ 09:13 by Dayana Menendez) housing: alf Smoking Status: Current some day smoker tobacco type: cigarettes Tobacco: How many years used: 65 second hand exposure: No alcohol intake: former details: Patient quit using alcohol 14 years ago substance use type: does not use HPI HPI Surgical H&P: Yes HPI: Patient is an 82 y/o M I am seeing for left upper extremity swelling. Patient has a left upper extremity brachial cephalic arteriovenous hemodialysis fistula. Patient resides at [facility] on the assisted living side. He performs dialysis on M, W and F at [facility]. Patient's daughter is also present with the patient. She notes he has had left upper extremity swelling since July, which is becoming worse. He notes no true difficulties with dialysis treatment. He notes the occasional prolonged post-treatment blee ding. Patient denies pain/discomfort at the fistula site. Patient is currently undergoing a work-up for a lung mass. Patient's most recent intervention was on 12/25/[address] Nelson. Findings included high-grade proximal fistula venous stenosis in the distal left upper arm. A 9 x 2 conquest angioplasty was performed with success and good central venous outflow. ROS General General: Yes weight change and fatigue; No appetite, colon cancer, breast cancer or weakness HEENT HEENT: No difficulty swallowing, eye injury, eye surgery, swollen glands or hoarseness Endo Endocrine: Yes diabetes mellitus; No thyroid disease, thyroid cancer, Hair loss, heat intolerance or cold intolerance Skin Skin: No rash or changing moles Breast Breast: No left breast lump, right breast lump, nipple discharge, breast pain, abnormal mammogram, abnormal US or breast enlargement Musc Musculoskeletal: Yes arthritis; No back problems, rheumatoid arthritis, gout or joint pain Cardio Cardiovascular: Yes heart disease; No murmur, pacemaker, atrial fibrillation, high blood pressure, heart attack, heart stent, palpitations, shortness of breat with exertion or chest pain Psych Psychiatric: No depression, anxiety or hearing voices Resp Respiratory: No shortness of breath, No sleep apnea, No cough, No COPD, No asthma, No emphysema and No wheezing Gastro Gastrointestinal: No abdominal pain, No nausea or vomiting, No diarrhea, No constipation, No blood in stool, No acid reflux, No hemorrhoids, No ulcers, No gallbladder problem and No black,tarry stools [place] Hematologic: No blood thinners, No blood disorders, No bleeding, No anemia and No blood clots Neuro Neurologic: No system reviewed and no additional complaints, except as documented, No as per HPI, No abnormal gait, No abnormal hearing, No abnormal movements, No abnormal speech, No behavioral changes, No burning sensations, No confusion, No convulsions, No disequilibrium, No dizziness, No localized weakness, No frequent falls, No headache(s), No lack of coordination, No loss of vision, No memory loss, No numbness, No other visual disturbances, No radicular pain, No restless legs, No sensory deficit, No syncope, No tingling, No tremor(s), No weakness and No other Exam Const General: cooperative, healthy appearing, comfortable and no acute distress [facility] Head: normal to inspection Eyes General: appearance normal, both eyes and all related structures Neck Neck: normal visual inspection Neck mass: No Resp Effort & Inspection: normal respiratory effort Auscultation: clear to auscultation bilaterally Cardio Rate: regular rate Rhythm: regular rhythm GI Inspection: normal to inspection Palpation: soft Auscultation: normal bowel sounds Musc Cervical Spine: normal cervical lordosis Skin General: no rashes or lesions noted Neuro General: no focal motor deficits and CN's II-XI intact bilaterally Extrem Other: Left upper extremity- moderate amount of swelling of the entire left upper extremity. Fistula pulse is good, slightly diminished bruit and thrill. Psych Appearance: grossly normal Attitude: cooperative Assessment and Plan Assessment and Plan (1) Problem with dialysis access: Status: Acute Qualifiers: Encounter type: initial encounter Qualified Code(s): T82.898A - Other specified complication of vascular prosthetic devices, implants and grafts, initial encounter Plan: Dr. Nelson will plan to perform a non-urgent left upper extremity AV fistulogram. Concern for possible central venous stenosis. Procedure details, risks and benefits have been explained. Patient resides at [facility]. Patient's daughter will be present with the patient the day of the procedure. An order was sent to the [facility] to hold patient's Plavix 3 days prior to the procedure. Patient has had the opportunity to ask and have questions answered. Patient verbally understands and agrees with the plan. (2) Edema of left upper extremity: Status: Acute I have examined the patient and the H&P has been reviewed. There are no clinical changes since date of exam. Meir Nelson M.D., F.A.C.S.
[2023-09-24 10:31] LABS: Bedside Glucose 138 mg/dL (74-106)
--- NOTE | 2023-09-24 11:00 | PCM.OPRPT ---
Report of Operation Date of Procedure: 09/24/23 Pre-Operative Diagnosis: Swelling, diminished flow left upper arm brachiocephalic arteriovenous hemodialysis fistula Post-Operative Diagnosis: Left upper arm brachial cephalic arteriovenous hemodialysis fistula with proximal fistula venous stenosis Surgery/Procedure Performed:: Left extremity fistulogram with 8 x 2 conquest angioplasty Description of Surgical Findings:: Timeout informed consent was obtained. 82-year-old gentleman was taken to the special procedures lab placed upon the table the left upper extremity was sterilely prepped and draped because of significant comorbidity no sedative was given today. Ultrasound was performed demonstrating what appeared to be widely patent anastomosis the proximal portion of the fistula for the first 3 to 4 cm appeared patent and there was a relative narrowing and then dilatation. Just at the very proximal portion of the fistula close to the arterial anastomosis antegrade with flow using ultrasound I injected 2% lidocaine and then a micropuncture needle micropuncture wire 6 Palestinian sheath dilator. Using Isovue contrast a left extremity fistulogram was obtained. This demonstrated relative stenosis approximately 6 cm from the origin of the fistula. So through the sheath I placed an 035 J-wire and then placed an 8 x 2 conquest balloon and performed balloon angioplasty up to 35 adriana of pressure did 2 insufflations at that spot. I did briefly place a balloon slightly more distally in the fistula and inflated it and try to get a retrograde view which demonstrated the brachial artery was patent as was the anastomosis. Completion views subsequent to the angioplasty demonstrated improvement in degree of stenosis. The palpable thrill was improved as well. Use suture of 4-0 nylon was placed followed by sterile dressing he tolerated procedure well no apparent complication contrast used was 16 cc and he was taken to the recovery area in satisfied condition. Left upper arm brachiocephalic arteriovenous fistula that has moderate stenosis at about 6 cm from the serial anastomosis improved with the angioplasty. There is no evidence of any central venous outflow obstruction. The patient may have left upper extremity swelling secondary to progressive congestive heart issues in the presence of a fistula in the left upper arm Meir Nelson M.D., F.A.C.S. Surgeon: Meir Nelson Type of Anesthesia: Local
== END 2023-09-24 12:00 | disposition home or self-care (01) ==
LOC: CLSP 09:50
PROVIDERS: PCP Internal Medicine; Referring Provider Surgery; Visit Provider Surgery
DX: T82.858A Stenosis of other vascular prosthetic devices, implants and grafts, initial encounter (principal); Z99.2 Dependence on renal dialysis; J44.9 Chronic obstructive pulmonary disease, unspecified; E11.22 Type 2 diabetes mellitus with diabetic chronic kidney disease; N18.6 End stage renal disease; I12.0 Hypertensive chronic kidney disease with stage 5 chronic kidney disease or end stage renal disease; I48.91 Unspecified atrial fibrillation; E78.5 Hyperlipidemia, unspecified; F17.210 Nicotine dependence, cigarettes, uncomplicated; R60.0 Localized edema; Y71.8 Miscellaneous cardiovascular devices associated with adverse incidents, not elsewhere classified
CPT/HCPCS: 36902; 76937; 82962; Q9967; C1725; C1769

== ENCOUNTER → 2023-10-08 04:00 | Outpatient (REF) | payer MEDICARE, MEDICAID, SELFPAY ==
[2023-10-08 08:54] LABS: Absolute Lymphocyte Count 1.11 X10^3/uL (0.83-4.51); Absolute Neutrophil Count 5.8 X10^3/uL (2.0-7.7); Basophil# 0.02 X10^3/uL; Basophil% 0.2 % (0-1); Eosinophil# 0.02 X10^3/uL; Eosinophils% 0.2 % (0-5); Hematocrit 33.1 % (40-54); Hemoglobin 10.4 g/dL (13.0-16.5); Lymphocyte # 1.11 X10^3/ul (0.83-4.51); Lymphocyte % 13.8 % (19-41); Mean Corp Hgb Conc 31.4 g/dL (32-36); Mean Corpuscular Hgb 36.7 pg (27.0-32.0); Mean Platelet Vol. 11.9 fl (6.2-12.0); Monocyte# 1.09 X10^3/uL; Monocyte% 13.6 % (0-10); NRBC Flagged by Analyzer 0 % (0-5); Neutrophil # 5.76 X10^3/uL (2.7-7.7); Neutrophil % 71.7 % (47-70); POSITIVE MORPHOLOGY YES; Platelet Count 160 K/mm3 (150-450); RBC Distribution Width CV 17.7 % (11.6-14.6); RBC Distribution Width SD 76.4 fl (35.1-43.9); Red Blood Count 2.83 M/mm3 (4.6-6.2)
[2023-10-08 09:02] LABS: Differential Indicated SCAN CRITERIA MET
[2023-10-08 09:07] LABS: Hemoglobin A1c 5.3 % (3.8-5.6)
[2023-10-08 09:32] LABS: Anion Gap 12 (5-15); BUN 65 mg/dL (7-18); BUN/Creat Ratio 8.7 RATIO (10-20); Calcium,Total 9.3 mg/dL (8.5-10.1); Chloride 95 mmol/L (98-107); Creatinine, Serum 7.46 mg/dL (0.70-1.30); EST Glomerular Filtration Rate 8 mL/min (>60); Est Glom Filt Rate - Afr Amer 9 mL/min (>60); Glucose 169 mg/dL (74-106); Magnesium 3.1 mg/dL (1.6-2.6); Potassium 5.6 mmol/L (3.5-5.1); Sodium Level 132 mmol/L (136-145)
[2023-10-08 09:38] LABS: Anisocytosis 2+; Differential Comment SCANNED
== END ==
LOC: OLS.SW 04:00
PROVIDERS: PCP Internal Medicine; Visit Provider Internal Medicine
DX: E11.9 Type 2 diabetes mellitus without complications (principal); I10 Essential (primary) hypertension
CPT/HCPCS: 36415; 80048; 83036; 83735; 85025

== ENCOUNTER 2023-10-09 09:45 | Outpatient (RCR) | payer MEDICARE, MEDICAID, SELFPAY ==
[2023-09-13 00:32] VITALS: BP 128/88; PULSE 53; RESP 18; TEMP 35.9; BMI 21.4
[2023-09-18 10:07] VITALS: BP 136/89; PULSE 61; RESP 20; TEMP 36.7; BMI 21.4
--- NOTE | 2023-09-18 11:27 | PN.PCM_ITS ---
History of Present Illness Date of Service: 09/18/23 Chief Complaint: Diabetic foot ulceration, left foot History of Wound: Patient is a 82-year-old diabetic male presenting to the wound care center today [facility] for second evaluation for ulceration to the left foot. Patient was seen by an outside corporate tax preparer at the [facility] for amputation of the left second digit and wound care. Patient is being seen today at the wound care center for evaluation and treatment. Patient is also on dialysis. He is currently residing at a facility. No treatment thus far to the left lateral wound underlying the subfifth metatarsal head. He admits to pain with weightbearing and touch. He denies trauma. Denies constitutional symptoms. No other pedal complaints at this time. Subjective Subjective Mr. Rodriguez is a 82-year-old diabetic male presenting to the wound care center today for follow-up of full-thickness ulceration to the lateral aspect of his left foot. Patient was recently hospitalized and seen by internal medicine and is planning to have a lung biopsy secondary to a shadow seen on radiograph. Patient mitts his pain is improved to the left foot but the wound is still present. He still resides at a correction facility. He denies trauma. Denies constitutional symptoms. No other pedal complaints at this time Objective Data Objective Data Vital Signs: Vital Signs Temp Pulse Resp BP 98.1 F 61 20 H 136/89 H 09/18/23 10:07 09/18/23 10:07 09/18/23 10:07 09/18/23 10:07 Weight: 65.771 kg Body Mass Index (BMI) 21.4 Physical Exam Narrative Vascular: DP and PT pulse are faintly palpable secondary to edema. CFT is delayed. Skin temperature is warm to cool from proximal ankle to distal digits to left lower extremity. +1 pitting edema appreciated to left foot Neurological light touch and epicritic station is intact. Patient response to painful stimuli. Dermatological: Evidence of dry eschar appreciated to the dorsum of the left foot which underlying skin is healed. There is evidence of a full-thickness ulceration to the subfifth metatarsal head eschar. Pain on palpation. No drainage noted. No probe to bone. Erythema with mild proximal streaking, improving. Toenails 1 through 5 to the right and 1 through 4 on the left show evidence of thickened, elongated, discolored with evidence of subungual debris's. Excisional debridement down to including subcutaneous tissue of the full- thickness ulceration soft with metatarsal head of the left foot with a #15 blade without incident. Predebridement measurements are callus, postdebridement measurement is 0.8 x 0.4 x 0.1 cm. Musculoskeletal: Moderate bony tenderness appreciated full-thickness ulceration to the subfifth metatarsal head. No pain with calf compression. Debridement Note Debridement Note Debridement Free Text: Excisional debridement down to including subcutaneous tissue of the full-thickness ulceration soft with metatarsal head of the left foot with a #15 blade without incident. Predebridement measurements are callus, postdebridement measurement is 0.8 x 0.4 x 0.1 cm. 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 ) Arrival Mode Wheelchair Transfer Assistance None Patient Identification Verified (Name & Yes ) Patient Requires Transmission-Based No Precautions Height and Weight Body Mass Index (BMI) 21.4 BMI Classification Normal Vital Signs Temperature (97.8 F-99.1 F) 98.1 F Temperature Source Oral Pulse Rate (60-100) 61 Pulse Location Monitor Respiratory Rate (12-18) 20 H Respiratory rate source Observation Blood Pressure (90/60-120/80) 136/89 H Blood Pressure Mean (mm Hg) 104 Source Monitor History Since Last Visit- (Skip if this is Patient's initial visit) Have you changed medications since your No last visit? Had a fall/change in ADL's that may No increase risk of falls Signs or symptoms of abuse and/or No neglect since last visit Have you been in the hospital since your No last visit? Has dressing in place as prescribed Yes Has compression in place as prescribed N/A Has offloadiing in place as prescribed Yes Experienced any changes in pain level or No management Pain Scale: 0-10 Numeric Is Patient Pain Free? Yes - Nurse 1 - General Ulcer Measurement Start: 09/18/23 10:07 Freq: Status: Active Protocol: Activity Type Activity Date Activity User E-sign Co-sign Detail Recorded Client Recorded Date Recorded By Document 09/18/23 10:07 DL Desktop 09/18/23 10:13 DL 09/18/23 10:07 Wound Center Nurse 1 #1- L LAT FOOT -Current Size (cm) - Length 0.9 -Current Size (cm) - Width 0.4 -Current Size (cm) - Depth 0.1 -Total Square Cm 0.36 -Exudate Amt None Present -Wound Margin Thickened -Granulation Amt None Present (0 %) -Necrotic Tissue Type Eschar -Structure Exposed N/A -Texture (Doreen-wound Skin Appearance) Scarring -Moisture (Doreen-wound Skin Appearance) No Abnormality -Color (Doreen-wound Skin Appearance) No Abnormality -Temperature (Doreen-wound Skin No Abnormality Appearance) (Pt Warm) -Tenderness on Palpation (Doreen-wound No Skin Appearance) -Ulcer Cleansing Soap and Water -Foul Odor after Cleansing No -Anesthetic Used 5% Lidocaine Gel WC - Nurse 2 - General Ulcer CM Notes Start: 09/18/23 10:07 Freq: Status: Active Protocol: Activity Type Activity Date Activity User E-sign Co-sign Detail Recorded Client Recorded Date Recorded By Document 09/18/23 10:40 Laptop 09/18/23 10:47 09/18/23 10:40 Wound Center Nurse 2 -Time 10:41 -Correct Patient Yes -Correct Side, Site, Position Yes -Correct Procedure Yes -Procedure Performed Yes -Type of Procedure Debridement -Clinical Debridement Subcutaneous -Tissue Removed Subcutaneous -Post Debridement (cm) - Length 0.8 -Post Debridement (cm) - Width 0.4 -Post Debridement (cm) - Depth 0.1 -Total Square (Post) (cm) 0.32 -Area of Debridement (cm) - Length 0.8 -Area of Debridement (cm) - Width 0.4 -Total Square (Area) (cm) 0.32 -Tunneling No -Undermining/Tunneling No -Circular Undermining No -Wound/Ulcer Outcome Not Healed -Ulcer Cleansing Rinsed/ Irrigated with Saline -Foul Odor after Cleansing No -Bioengineered Tissue No -Bleeding Controlled with Pressure -Treatment Response Procedure Tolerated Well -Offloading Yes -Type of Offloading Surgical Shoe -Debridement - Subq, 1st 20sq cm Yes Pain Scale: 0-10 Numeric Is Patient Pain Free? Yes WC - Nurse 3 - General Ulcer D/C NN Start: 09/18/23 10:07 Freq: Status: Active Protocol: Activity Type Activity Date Activity User E-sign Co-sign Detail Recorded Client Recorded Date Recorded By Document 09/18/23 10:52 GM Desktop 09/18/23 10:53 GM 09/18/23 10:52 Wound Care Center Nurse 3 #1- L LAT FOOT -Ulcer Cleansing Rinsed/ Irrigated with Saline -Foul Odor after Cleansing No -Primary Dressing Applied Promogran Kenna Matter -Other Dressing betadine -Primary Dressing Covered/Secured with Dry Gauze, Secured with Tape -Promogran Kenna Matter 1 Treatment Response Procedure Tolerated Well Pain Scale: 0-10 Numeric Is Patient Pain Free? Yes WC - Visit Discharge Discharge Condition Stable Ambulatory Status Wheelchair Transportation [facility] Facility Type [facility] Orders Sent Yes Assessment/Plan Assessment/Plan (1) Non-pressure chronic ulcer of other part of left foot with fat layer exposed: CODE(S): L97.522 - Non-pressure chronic ulcer of other part of left foot with fat layer exposed PLAN: Patient was examined evaluated. All findings were discussed with the patient. All questions were answered to the patient's satisfaction. Excisional debridement down to including subcutaneous tissue of the full- thickness ulceration soft with metatarsal head of the left foot with a #15 blade without incident. Predebridement measurements are callus, postdebridement measurement is 0.8 x 0.4 x 0.1 cm. Wound was dressed with Kenna, Betadine paint sterile Band-Aid. Educated the patient continue strict glucose control. Follow-up in 2 weeks. (2) Tinea unguium: CODE(S): B35.1 - Tinea unguium PLAN: Patient's toenails 1 through 5 on the right and 1 through 4 on the left were debrided down to and including normal levels with a sterile double-action nail nipper without incident. Patient expectorates relief after his debridement. He was grateful for his care. (3) DM type 2 (diabetes mellitus, type 2): CODE(S): E11.9 - Type 2 diabetes mellitus without complications
[2023-09-25 09:21] VITALS: BP 128/69; PULSE 88; RESP 20; TEMP 36.2; BMI 21.4
[2023-09-25 10:05] LABS: Bedside Glucose 208 mg/dL (74-106)
--- NOTE | 2023-09-25 11:47 | PCM.WC.PN ---
History of Present Illness Date of Service: 09/25/23 Chief Complaint: Diabetic foot ulceration, left foot History of Wound: Patient is a 82-year-old diabetic male presenting to the wound care center today [facility] for second evaluation for ulceration to the left foot. Patient was seen by an outside food service worker at the [facility] for amputation of the left second digit and wound care. Patient is being seen today at the wound care center for evaluation and treatment. Patient is also on dialysis. He is currently residing at a facility. No treatment thus far to the left lateral wound underlying the subfifth metatarsal head. He admits to pain with weightbearing and touch. He denies trauma. Denies constitutional symptoms. No other pedal complaints at this time. Subjective Subjective Mr. Rodriguez is a 82-year-old diabetic male presenting to the wound care center today for follow-up of full-thickness ulceration to the lateral aspect of his left foot. Patient was recently hospitalized and seen by internal medicine and is planning to have a lung biopsy secondary to a shadow seen on radiograph. Patient mitts his pain is improved to the left foot but the wound is still present. [facility] a [facility]. He denies trauma. Denies constitutional symptoms. No other pedal complaints at this time Objective Data Objective Data Vital Signs: Vital Signs Temp Pulse Resp BP O2 Del Method 97.1 F L 88 20 H 128/69 H Room Air 09/25/23 09:21 09/25/23 09:21 09/25/23 09:21 09/25/23 09:21 09/25/23 09:21 Oxygen Delivery Method Room Air Weight: 65.771 kg Body Mass Index (BMI) 21.4 Lab / Micro Data Labs: Laboratory Results - last 24 hr 09/25/23 09:47: POC Glucose 208 H Physical Exam Narrative Vascular: DP and PT pulse are faintly palpable secondary to edema. CFT is delayed. Skin temperature is warm to cool from proximal ankle to distal digits to left lower extremity. +1 pitting edema appreciated to left foot Neurological light touch and epicritic station is intact. Patient response to painful stimuli. Dermatological: Evidence of dry eschar appreciated to the dorsum of the left foot which underlying skin is healed. There is evidence of a full-thickness ulceration to the subfifth metatarsal head eschar. Pain on palpation. No drainage noted. No probe to bone. Erythema with mild proximal streaking, improving. Toenails 1 through 5 to the right and 1 through 4 on the left show evidence of thickened, elongated, discolored with evidence of subungual debris's. Excisional debridement down to including subcutaneous tissue of the full-thickness ulceration soft with metatarsal head of the left foot with a #15 blade without incident. Predebridement measurements are 0.4 x 0.2 x 0.1 cm, postdebridement measurement is 0.5 x 0.3 x 0.1 cm. Musculoskeletal: Moderate bony tenderness appreciated full-thickness ulceration to the subfifth metatarsal head. No pain with calf compression. Debridement Note Debridement Note Debridement Free Text: Excisional debridement down to including subcutaneous tissue of the full-thickness ulceration soft with metatarsal head of the left foot with a #15 blade without incident. Predebridement measurements are 0.4 x 0.2 x 0.1 cm, postdebridement measurement is 0.5 x 0.3 x 0.1 cm. Post-Debridement Measurements and Additional Note: Post-Debridement Measurements/Treatment - Nurse 1 - General Ulcer Assessment Start: 09/18/23 10:07 Freq: Status: Active Protocol: ESME.LOWMACK Activity Type Activity Date Activity User E-sign Co-sign Detail Recorded Client Recorded Date Recorded By Document 09/18/23 10:07 DL Desktop 09/18/23 10:13 DL Document 09/25/23 09:[address] [facility] Desktop 09/25/23 09:29 BMF 09/18/23 09/25/23 10:07 09:21 - Today's Visit Information Type of service Follow-up Visit Follow-up Visit (Physician/ANVILSMITH (Physician/ANVILSMITH ) ) Arrival Mode Wheelchair Wheelchair Transfer Assistance None Patient Identification Verified (Name & Yes ) Patient Requires Transmission-Based No Precautions Height and Weight Body Mass Index (BMI) 21.4 21.4 BMI Classification Normal Normal Vital Signs Temperature (97.8 F-99.1 F) 98.1 F 97.1 F L Temperature Source Oral Temporal Pulse Rate (60-100) 61 88 Pulse Location Monitor Monitor Respiratory Rate (12-18) 20 H 20 H Respiratory rate source Observation Observation Oxygen Delivery Method Room Air Blood Pressure (90/60-120/80) 136/89 H 128/69 H Blood Pressure Mean (mm Hg) 104 88 Source Monitor Monitor Position Semi-Fowlers Blood Pressure Location Left Forearm History Since Last Visit- (Skip if this is Patient's initial visit) Have you changed medications since your No No last visit? Any new allergies or adverse reactions No Had a fall/change in ADL's that may No No increase risk of falls Signs or symptoms of abuse and/or No No neglect since last visit Have you been in the hospital since your No No last visit? Has dressing in place as prescribed Yes Yes Has compression in place as prescribed N/A No Has offloadiing in place as prescribed Yes No Experienced any changes in pain level or No No management Left Footwear Regular Shoe Right Footwear Regular Shoe Pain Scale: 0-10 Numeric Is Patient Pain Free? Yes Yes WC - Nurse 1 - General Ulcer Measurement Start: 09/18/23 10:07 Freq: Status: Active Protocol: Activity Type Activity Date Activity User E-sign Co-sign Detail Recorded Client Recorded Date Recorded By Document 09/18/23 10:07 DL Desktop 09/18/23 10:13 DL Document 09/25/23 09:21 BMF Desktop 09/25/23 09:29 BMF 09/18/23 09/25/23 10:07 09:21 Wound Center Nurse 1 #1- L LAT FOOT -Current Size (cm) - Length 0.9 0.4 -Current Size (cm) - Width 0.4 0.3 -Current Size (cm) - Depth 0.1 0.2 -Total Square Cm 0.36 0.12 -Exudate Amt None Present Medium -Exudate Type Serosanguineous -Wound Margin Thickened Distinct, Outline Attached -Granulation Amt None Present (0 Small (1-33%) %) -Granulation Quality [place] -Necrosis Amt Large (67-100%) -Necrotic Tissue Type Eschar Adherent Slough -Structure Exposed N/A -Texture (Doreen-wound Skin Appearance) Scarring Assessed,Callus -Moisture (Doreen-wound Skin Appearance) No Abnormality Dry/Scaly -Color (Doreen-wound Skin Appearance) No Abnormality Assessed -Temperature (Doreen-wound Skin No Abnormality No Abnormality Appearance) (Pt Warm) (Pt Warm) -Tenderness on Palpation (Doreen-wound No Skin Appearance) -Ulcer Cleansing Soap and Water Rinsed/ Irrigated with Saline -Foul Odor after Cleansing No -Anesthetic Used 5% Lidocaine 5% Lidocaine Gel Gel - Nurse 2 - General Ulcer CM Notes Start: 09/18/23 10:07 Freq: Status: Active Protocol: Activity Type Activity Date Activity User E-sign Co-sign Detail Recorded Client Recorded Date Recorded By Document 09/18/23 10:40 Laptop 09/18/23 10:47 Document 09/25/23 09:50 Desktop 09/25/23 09:55 09/18/23 09/25/23 10:40 09:50 Wound Center Nurse 2 #1- L LAT FOOT -Time 10:41 09:50 -Correct Patient Yes Yes -Correct Side, Site, Position Yes Yes -Correct Procedure Yes Yes -Procedure Performed Yes Yes -Type of Procedure Debridement Debridement -Clinical Debridement Subcutaneous Subcutaneous -Tissue Removed Subcutaneous Subcutaneous -Post Debridement (cm) - Length 0.8 0.5 -Post Debridement (cm) - Width 0.4 0.3 -Post Debridement (cm) - Depth 0.1 0.1 -Total Square (Post) (cm) 0.32 0.15 -Area of Debridement (cm) - Length 0.8 0.5 -Area of Debridement (cm) - Width 0.4 0.3 -Total Square (Area) (cm) 0.32 0.15 -Tunneling No No -Undermining/Tunneling No No -Circular Undermining No No -Wound/Ulcer Outcome Not Healed Not Healed -Ulcer Cleansing Rinsed/ Irrigated with Saline -Foul Odor after Cleansing No No -Bioengineered Tissue No No -Bleeding Controlled with Pressure Pressure -Treatment Response Procedure Procedure Tolerated Well Tolerated Well -Offloading Yes Yes -Type of Offloading Surgical Shoe Surgical Shoe -Debridement - Subq, 1st 20sq cm Yes Yes Pain Scale: 0-10 Numeric Is Patient Pain Free? Yes Yes - Nurse 3 - General Ulcer D/C NN Start: 09/18/23 10:07 Freq: Status: Active Protocol: Activity Type Activity Date Activity User E-sign Co-sign Detail Recorded Client Recorded Date Recorded By Document 09/18/23 10:52 [employer] 09/18/23 10:53 Document 09/25/23 10:[address] [facility] Desktop 09/25/23 10:[address] [facility] 09/18/23 09/25/23 10:52 10:08 Wound Care Center Nurse 3 #1- L LAT FOOT -Ulcer Cleansing Rinsed/ Rinsed/ Irrigated with Irrigated with Saline Saline -Foul Odor after Cleansing No No -Primary Dressing Applied Promogran Promogran Kenna Matter Kenna Matter -Other Dressing betadine betadine -Primary Dressing Covered/Secured with Dry Gauze, Dry Gauze, Secured with Secured with Tape Tape -Promogran Kenna Matter 1 1 Treatment Response Procedure Procedure Tolerated Well Tolerated Well Pain Scale: 0-10 Numeric Is Patient Pain Free? Yes Yes WC - Visit Discharge Discharge Condition Stable Stable Ambulatory Status Wheelchair Wheelchair Transportation [facility] Facility Type Optometry Professor Care Nursing Home Care Facility Facility Orders Sent Yes Assessment/Plan Assessment/Plan (1) Non-pressure chronic ulcer of other part of left foot with fat layer exposed: CODE(S): L97.522 - Non-pressure chronic ulcer of other part of left foot with fat layer exposed PLAN: Patient was examined evaluated. All findings were discussed with the patient. All questions were answered to the patient satisfaction. Excisional debridement down to including subcutaneous tissue of the full-thickness ulceration soft with metatarsal head of the left foot with a #15 blade without incident. Predebridement measurements are 0.4 x 0.2 x 0.1 cm, postdebridement measurement is 0.5 x 0.3 x 0.1 cm. Ulcer x-rays with Kenna Betadine paint and sterile Band-Aid. Patient was instructed to have this changed at his nursing facility daily. Educated the patient to continue to have strict blood sugar control. The patient was a bit short of breath with low O2 sat he was monitored and put on nasal cannula 3 L of oxygen. Call was made out to the patient's nurse that the patient will need to continue oxygen and continue to have his O2 sat monitored. Educated the patient that if his status continues to decline that he will need to present to the emergency department for evaluation. Patient was understanding of this. Will follow-up in 2 weeks. (2) Chronic painful diabetic polyneuropathy: CODE(S): E11.42 - Type 2 diabetes mellitus with diabetic polyneuropathy
[2023-10-09 10:04] VITALS: BP 108/30; PULSE 33; RESP 20; TEMP 35.6; O2SAT 98; BMI 21.4
--- NOTE | 2023-10-09 10:17 | NURSING ---
vitals are not stable, 1015 HR 33 and bp 107/41, sats drops to 77% when he falls asleep. Is on 2L oxygen. Alek arrived at 1018 to tranport patient to ED.
--- NOTE | 2023-10-09 11:03 | PN.PCM_ITS ---
History of Present Illness Date of Service: 10/09/23 Chief Complaint: Diabetic foot ulceration, left foot History of Wound: Patient is a 82-year-old diabetic male presenting to the wound care center today [facility] for second evaluation for ulceration to the left foot. Patient was seen by an outside soda fountain manager at the [facility] for amputation of the left second digit and wound care. Patient is being seen today at the wound care center for evaluation and treatment. Patient is also on dialysis. He is currently residing at a facility. No treatment thus far to the left lateral wound underlying the subfifth metatarsal head. He admits to pain with weightbearing and touch. He denies trauma. Denies constitutional symptoms. No other pedal complaints at this time. Subjective Subjective Mr. Rodriguez is a 82-year-old diabetic male presenting to the wound care center today for follow-up of full-thickness ulceration to the lateral aspect of his left foot. Patient was recently hospitalized and seen by internal medicine and is planning to have a lung biopsy secondary to a shadow seen on radiograph. Patient mitts his pain is improved to the left foot but the wound is still present. He still resides at a fpc facility. He denies trauma. Denies constitutional symptoms. No other pedal complaints at this time At the time of initial visit the patient shows to have shortening of breath and is on 2 L nasal cannula. Patient has a blood pressure of 108/77 with a heart rate fluctuating from 30 to 40 bpm. Patient desats as he begins to breathe out of his mouth and not through his nose. A squad to be called to take the patient over to the emergency department for evaluation as the patient seems to have fluid overload. Objective Data Objective Data Vital Signs: Vital Signs Temp Pulse Resp BP Pulse Ox O2 Del Method O2 Flow Rate 96.1 F L 33 L 20 H 108/30 L 98 Nasal Cannula 2 10/09/23 10:04 10/09/23 10:04 10/09/23 10:04 10/09/23 10:04 10/09/23 10:04 10/09/23 10:04 10/09/23 10:04 Oxygen Flow Rate (L/min) 2 Oxygen Delivery Method Nasal Cannula Weight: 65.771 kg Body Mass Index (BMI) 21.4 Debridement Note Debridement Note Post-Debridement Measurements and Additional Note: Post-Debridement Measurements/Treatment WC - Nurse 1 - General Ulcer Assessment Start: 09/18/23 10:07 Freq: Status: Active Protocol: WC.LOWEXT Activity Type Activity Date Activity User E-sign Co-sign Detail Recorded Client Recorded Date Recorded By Document 09/18/23 10:07 DL Desktop 09/18/23 10:13 DL Document 09/25/23 09:21 BMF Desktop 09/25/23 09:29 BMF Document 10/09/23 10:04 GM Desktop 10/09/23 10:07 GM 09/18/23 09/25/23 10/09/23 10:07 09:21 10:04 WC - Today's Visit Information Type of service Follow-up Visit Follow-up Visit Follow-up Visit (Physician/DIALYSIS CHIEF EQUIPMENT TECHNICIAN (Physician/DIALYSIS CHIEF EQUIPMENT TECHNICIAN (Physician/DIALYSIS CHIEF EQUIPMENT TECHNICIAN ) ) ) Arrival Mode Wheelchair Wheelchair Wheelchair Transfer Assistance None Manual Patient Identification Verified (Name & Yes Yes ) Patient Requires Transmission-Based No Precautions Safety Precautions Fall Prevention Height and Weight Body Mass Index (BMI) 21.4 21.4 21.4 BMI Classification Normal Normal Normal Vital Signs Temperature (97.8 F-99.1 F) 98.1 F 97.1 F L 96.1 F L Temperature Source Oral Temporal Temporal Pulse Rate (60-100) 61 88 33 L Pulse Location Monitor Monitor Monitor Respiratory Rate (12-18) 20 H 20 H 20 H Respiratory rate source Observation Observation Observation Pulse Oximetry 98 Oxygen Delivery Method Room Air Nasal Cannula O2 L/MIN (L/min) 2 Blood Pressure (90/60-120/80) 136/89 H 128/69 H 108/30 L Blood Pressure Mean (mm Hg) 104 88 56 Source Monitor Monitor Monitor Position Semi-Fowlers Semi-Fowlers Blood Pressure Location Left Forearm Right Arm History Since Last Visit- (Skip if this is Patient's initial visit) Have you changed medications since your No No No last visit? Any new allergies or adverse reactions No No Had a fall/change in ADL's that may No No No increase risk of falls Signs or symptoms of abuse and/or No No No neglect since last visit Have you been in the hospital since your No No No last visit? Has dressing in place as prescribed Yes Yes Yes Has compression in place as prescribed N/A No No Has offloadiing in place as prescribed Yes No N/A Experienced any changes in pain level or No No No management Left Footwear Regular Shoe Regular Shoe Right Footwear Regular Shoe Pain Scale: 0-10 Numeric Is Patient Pain Free? Yes Yes Yes WC - Nurse 1 - General Ulcer Measurement Start: 09/18/23 10:07 Freq: Status: Active Protocol: Activity Type Activity Date Activity User E-sign Co-sign Detail Recorded Client Recorded Date Recorded By Document 09/18/23 10:07 DL Desktop 09/18/23 10:13 DL Document 09/25/23 09:21 BMF Desktop 09/25/23 09:29 BMF Document 10/09/23 10:04 GM Desktop 10/09/23 10:07 GM 09/18/23 09/25/23 10/09/23 10:07 09:21 10:04 Wound Center Nurse 1 #1- L LAT FOOT -Current Size (cm) - Length 0.9 0.4 0.4 -Current Size (cm) - Width 0.4 0.3 0.5 -Current Size (cm) - Depth 0.1 0.2 0.1 -Total Square Cm 0.36 0.12 0.20 -Photo Taken No -Epithelialization Small 1-33% -Tunneling No -Undermining/Tunneling No -Circular Undermining No -Exudate Amt None Present Medium None Present -Exudate Type Serosanguineous -Wound Margin Thickened Distinct, Distinct, Outline Outline Attached Attached -Granulation Amt None Present (0 Small (1-33%) Medium (34-66%) %) -Granulation Quality Buffalo Soapstone Buffalo Soapstone -Slough/Fibrin No -Necrosis Amt Large (67-100%) -Necrotic Tissue Type Eschar Adherent Slough -Structure Exposed N/A -Texture (Doreen-wound Skin Appearance) Scarring Assessed,Callus Assessed -Moisture (Doreen-wound Skin Appearance) No Abnormality Dry/Scaly Assessed -Color (Doreen-wound Skin Appearance) No Abnormality Assessed Assessed -Temperature (Doreen-wound Skin No Abnormality No Abnormality No Abnormality Appearance) (Pt Warm) (Pt Warm) (Pt Warm) -Tenderness on Palpation (Doreen-wound No No Skin Appearance) -Ulcer Cleansing Soap and Water Rinsed/ Rinsed/ Irrigated with Irrigated with Saline Saline -Foul Odor after Cleansing No No -Anesthetic Used 5% Lidocaine 5% Lidocaine 5% Lidocaine Gel Gel Gel Lower Limb Edema Present Yes Right Calf (cm) 35 Right Ankle (cm) 24 Left Calf (cm) 33 Left Ankle (cm) 23 - Nurse 2 - General Ulcer CM Notes Start: 09/18/23 10:07 Freq: Status: Active Protocol: Activity Type Activity Date Activity User E-sign Co-sign Detail Recorded Client Recorded Date Recorded By Document 09/18/23 10:40 Laptop 09/18/23 10:47 Document 09/25/23 09:50 Desktop 09/25/23 09:55 09/18/23 09/25/23 10:40 09:50 Wound Center Nurse 2 #1- L LAT FOOT -Time 10:41 09:50 -Correct Patient Yes Yes -Correct Side, Site, Position Yes Yes -Correct Procedure Yes Yes -Procedure Performed Yes Yes -Type of Procedure Debridement Debridement -Clinical Debridement Subcutaneous Subcutaneous -Tissue Removed Subcutaneous Subcutaneous -Post Debridement (cm) - Length 0.8 0.5 -Post Debridement (cm) - Width 0.4 0.3 -Post Debridement (cm) - Depth 0.1 0.1 -Total Square (Post) (cm) 0.32 0.15 -Area of Debridement (cm) - Length 0.8 0.5 -Area of Debridement (cm) - Width 0.4 0.3 -Total Square (Area) (cm) 0.32 0.15 -Tunneling No No -Undermining/Tunneling No No -Circular Undermining No No -Wound/Ulcer Outcome Not Healed Not Healed -Ulcer Cleansing Rinsed/ Irrigated with Saline -Foul Odor after Cleansing No No -Bioengineered Tissue No No -Bleeding Controlled with Pressure Pressure -Treatment Response Procedure Procedure Tolerated Well Tolerated Well -Offloading Yes Yes -Type of Offloading Surgical Shoe Surgical Shoe -Debridement - Subq, 1st 20sq cm Yes Yes Pain Scale: 0-10 Numeric Is Patient Pain Free? Yes Yes - Nurse 3 - General Ulcer D/C NN Start: 09/18/23 10:07 Freq: Status: Active Protocol: Activity Type Activity Date Activity User E-sign Co-sign Detail Recorded Client Recorded Date Recorded By Document 09/18/23 10:52 [employer] 09/18/23 10:53 Document 09/25/23 10:08 [facility] Desktop 09/25/23 10:08 [facility] 09/18/23 09/25/23 10:52 10:08 Wound Care Center Nurse 3 #1- L LAT FOOT -Ulcer Cleansing Rinsed/ Rinsed/ Irrigated with Irrigated with Saline Saline -Foul Odor after Cleansing No No -Primary Dressing Applied Promogran Promogran Kenna Matter Kenna Matter -Other Dressing betadine betadine -Primary Dressing Covered/Secured with Dry Gauze, Dry Gauze, Secured with Secured with Tape Tape -Promogran Kenna Matter 1 1 Treatment Response Procedure Procedure Tolerated Well Tolerated Well Pain Scale: 0-10 Numeric Is Patient Pain Free? Yes Yes WC - Visit Discharge Discharge Condition Stable Stable Ambulatory Status Wheelchair Wheelchair Transportation [facility] Facility Type [facility] Facility Orders Sent Yes Assessment/Plan Assessment/Plan (1) Fluid overload: CODE(S): E87.70 - Fluid overload, unspecified PLAN: Patient was seen at the wound care center today for left foot full- thickness wound evaluation however, at time of presentation the patient showed to have shortening of breath as well as wheezing to both lungs. The patient's blood pressure at time of visit was 108/77 with a heart rate fluctuating between 30 and 40 bpm. Patient with D-Stat as he would talk even with nasal cannula at 2 L. Patient would D-Stat to 77 oxygen saturation and would nod off from time to time while in the presence of nursing staff. A squad was called to take patient to emergency department at [facility] for evaluation and admission if needed per emergency medical personnel.
== END 2023-10-13 23:59 | disposition home or self-care (01) ==
LOC: WC 09:45
PROVIDERS: PCP Internal Medicine; Referring Provider Internal Medicine; Visit Provider Podiatrist Foot & Ankle Surgery
DX: E11.621 Type 2 diabetes mellitus with foot ulcer (principal); L97.522 Non-pressure chronic ulcer of other part of left foot with fat layer exposed; E11.42 Type 2 diabetes mellitus with diabetic polyneuropathy; Z79.4 Long term (current) use of insulin; R06.02 Shortness of breath; R60.0 Localized edema; E87.70 Fluid overload, unspecified; Z79.02 Long term (current) use of antithrombotics/antiplatelets; Z79.899 Other long term (current) drug therapy
CPT/HCPCS: 11042; 82962

== ENCOUNTER 2023-10-09 10:36 | Inpatient (IN) | payer MEDICARE, MEDICAID, SELFPAY ==
[2023-10-09] VITALS (30 sets, daily range): BP systolic 100–260; BP diastolic 43–97; PULSE 31–73; RESP 12–95; TEMP 36.2–36.4; O2SAT 88–100; BMI 24.2; BMI 23.1; BMI 22.4
[2023-10-09] MEDS: Atropine Sulfate 1 MG/10 ML Syringe 0.5 MG IV (10:39)
--- NOTE | 2023-10-09 10:42 | RAD_ITS ---
STUDY: X-RAY CHEST REASON FOR EXAM: Male, 82 years old. Shortness of breath. History of right lung biopsy. TECHNIQUE: Single frontal view of the chest on 2 images. Compatible projected over the chest obscuring much of the central portion of the chest COMPARISON: September 16, 2023 FINDINGS: Stable right upper lobe nodule measuring approximately 2 cm in diameter. Cardiomegaly, aortic tortuosity with calcification, diffuse interstitial pattern and increase in bilateral pleural effusions, right greater than left. Incidentally noted and unchanged are marked osteoarthrosis of both glenohumeral joints, right greater than left. No abnormality of the visualized soft tissue structures of the upper abdomen. RAD/Chest 1 View (Portable) IMPRESSION: Increased interstitial pattern diffusely and increase in bilateral pleural effusions, compatible with worsening interstitial edema/congestive failure. Follow-up chest imaging to resolution recommended Electronically Signed: Alec Saeed MD at 11:12 EST ,
[2023-10-09] MEDS: Ipratropium/Albuterol Sulfate 3 ML AMPUL.NEB 6 ML INHALATION (10:52)
[2023-10-09 10:53] LABS: Absolute Lymphocyte Count 1.21 X10^3/uL (0.83-4.51); Absolute Neutrophil Count 4.1 X10^3/uL (2.0-7.7); Basophil# 0.03 X10^3/uL; Basophil% 0.4 % (0-1); Eosinophil# 0.06 X10^3/uL; Eosinophils% 0.9 % (0-5); Hematocrit 34.2 % (40-54); Hemoglobin 11.1 g/dL (13.0-16.5); Lymphocyte # 1.21 X10^3/ul (0.83-4.51); Lymphocyte % 18.1 % (19-41); Mean Corp Hgb Conc 32.5 g/dL (32-36); Mean Corpuscular Hgb 37.6 pg (27.0-32.0); Mean Corpuscular Volume 115.9 fL (80-94); Mean Platelet Vol. 11.8 fl (6.2-12.0); Monocyte# 1.27 X10^3/uL; NRBC Flagged by Analyzer 0.3 % (0-5); Neutrophil # 4.09 X10^3/uL (2.7-7.7); Neutrophil % 61.3 % (47-70); POSITIVE MORPHOLOGY YES; Platelet Count 153 K/mm3 (150-450); RBC Distribution Width CV 17.9 % (11.6-14.6); Red Blood Count 2.95 M/mm3 (4.6-6.2); White Blood Count 6.7 K/mm3 (4.4-11.0)
--- NOTE | 2023-10-09 10:55 | EX.ED.DYSGE1 ---
HPI History of Present Illness Chief Complaint: Shortness of Breath Narrative Narrative: Patient is a 82-year-old male who is presenting to the ER with chief complaint shortness of breath, possible fluid overload, lethargic, hypoxic, and bradycardic. Patient is coming from the wound clinic. Patient has a ongoing chronic wound is being treated of his left foot by Dr. Reyes. Dr. Reyes called to give a report ahead of time that patient was coming over by EMS. Patient is able to speak in short sentences. Patient has a heart rate in the 30s. Patient says his heart rate is normally in the 50s. Patient typically goes to dialysis Saturday, Saturday, Saturday. Patient stated secondary to the holiday, he did go Saturday, he did go yesterday, due to go today, and Saturday. Patient is a full code. This is verified today with the patient By myself. During HPI and physical exam, chest x-ray was done, patient has a right lung mass that he is aware of. He Has chosen not to do any chemo or radiation for the right lung mass. Patient is aware of the right lung mass. Patient stays at [facility] Patient has a history of COPD, end-stage renal disease, dialysis on Saturday, Saturday, Saturday, type 2 diabetes with chronic kidney disease, hypertension, anemia with chronic kidney disease, hyperlipidemia. Patient does take Plavix, Humalog, Norvasc, clonidine, Coreg, PFSH PFSH Medical History Anemia Asthma Atrial fibrillation Benign essential HTN Brain aneurysm Chronic renal failure, stage 5 Closed head injury Colon polyps COPD (chronic obstructive pulmonary disease) CVA (cerebral vascular accident) Diabetes Dialysis complication Dialysis patient End stage renal disease End-stage renal disease on hemodialysis Fall Febrile illness, acute Fistula HCAP (healthcare-associated pneumonia) Hepatitis C History of GI bleed Hyperlipemia Hyponatremia Kidney disease Leukocytosis LFT elevation Metabolic encephalopathy Multifocal pneumonia NSTEMI, initial episode of care On home oxygen therapy Pneumonia Problem with dialysis access PVD (peripheral vascular disease) Sleep apnea Smoker TIA (transient ischemic attack) Tobacco use disorder Troponin level elevated Type II diabetes mellitus, uncontrolled Home Medications acetaminophen 325 mg tablet (Tylenol) 650 mg PO Q4H PRN PRN Pain Score 1-10/Temp > 100.7 F 10/10/21 [History Last Taken Unknown] bisacodyl 10 mg rectal suppository 10 mg IN DAILY PRN Constipation 02/17/22 [History Last Taken Unknown] calcium acetate(phosphat bind) 667 mg capsule 1,334 mg PO TID binder 02/17/22 [History Last Taken Unknown] loperamide 2 mg capsule 2 mg PO Q6H PRN Diarrhea 02/17/22 [History Last Taken Unknown] triamcinolone acetonide 0.1 % topical cream 1 applic topical BID PRN psoriasis 02/17/22 [History Last Taken Unknown] amlodipine 5 mg tablet 5 mg PO BID blood pressure 05/26/23 [History Last Taken Unknown] clonidine HCl 0.2 mg tablet 0.2 mg PO DAILY PRN hypertensive emergency 07/24/23 [History Last Taken Unknown] guaifenesin 100 mg/5 mL oral liquid 200 mg PO Q6H PRN cough 07/24/23 [History Last Taken Unknown] insulin lispro 100 unit/mL subcutaneous pen (Humalog KwikPen (U-100) Insulin) 1 sliding scale dose subcut TID diabetes 07/24/23 [History Last Taken Unknown] magnesium hydroxide 30 ml PO .1 PRN constipation 08/05/23 [History Last Taken Unknown] vitamin B complex-vitamin C-folic acid 0.8 mg tablet (Nephro-Lola) 1 tab PO DAILY supplement 08/05/23 [History Last Taken Unknown] acetaminophen 650 mg rectal suppository 650 mg IN Q4H PRN fever or pain 08/26/23 [History Last Taken Unknown] aluminum-magnesium hydroxide 225 mg-200 mg/5 mL oral suspension 30 ml PO Q4H PRN heartburn 08/26/23 [History Last Taken Unknown] carvedilol 12.5 mg tablet 12.5 mg PO BID 08/26/23 [History Last Taken Unknown] glucagon 1 mg solution for injection (Glucagon Emergency Kit) 1 mg subcut Q20M PRN hypoglycemia 08/26/23 [History Last Taken Unknown] insulin lispro 100 unit/mL subcutaneous pen (Humalog Tempo Pen (U-100) Insulin) 2 unit subcut .AFTERNOON 08/26/23 [History Last Taken Unknown] mineral oil (Fleet Mineral Oil enema) 118 ml IN DAILY PRN constipation 08/26/23 [History Last Taken Unknown] clopidogrel 75 mg tablet 75 mg PO DAILY a-fib 10/03/23 [History Last Taken Unknown] Allergy/AdvReac Type Severity Reaction Status Date / Time milk Allergy Intermediate Diarrhea Verified 10/03/23 16:03 varenicline tartrate Allergy makes me Verified 10/03/23 16:03 [From Chantix] we[place] , loyd Family History (Updated 10/09/23 @ 16:[address] Serena Gee MD) Mother CVA (cerebral vascular accident) Diabetes Hypertension Father Colon cancer Diabetes Brother Diabetes Other Atrial fibrillation Surgical History history insertion dialysis catheter (~11/04/20) History of cataract extraction History of colectomy History of colonoscopy (~06/2020) History of surgery on left wrist History of vein stripping Social History (Updated 10/09/23 @ 13:53 by Janet Lepe) housing: [facility] do you think of yourself as: straight/heterosexual current gender identity: male Smoking Status: Former smoker quit date: 07/22/23 pack-years: 65 Tobacco: How many years used: 65 second hand exposure: No alcohol intake: former details: Patient quit using alcohol 14 years ago substance use type: does not use ROS ROS ED ROS Narrative Unless otherwise stated in this report or unable to obtain because of the patient's clinical or mental status as evidenced by medical record, the patient's positive and negative responses for review of systems for constitutional, eyes, ENT, cardiovascular, respiratory, gastrointestinal, neurological, , musculoskeletal, and integument systems and related systems to the presenting problem are either stated in the history of present illness or were not pertinent or were negative for the symptoms and/or complaints related to the presenting medical problem. EXAM Physical Exam Narrative Exam Narrative: vital signs reviewed and patient is hypoxic. General: The patient appears In mild respiratory distress. Patient is resting uncomfortably on cart. Not toxic, lethargic, or listless. Skin: Warm, dry, mild pallor noted. There is no rash noted. Head: Normocephalic, atraumatic Eye: Normal conjunctiva, no drainage, EOMI. PERRL. Ears, Nose, Mouth, and Throat: oral mucosa is moist. Nares patent. Mouth without vesicles. Cardiovascular: Regular Rate and Rhythm, no murmurs, gallops, or rubs Respiratory: Patient is in Mild respiratory distress, no accessory muscle use, lungs are Decreased bilateral, rales and crackles noted to bilateral bases, no wheezing, no rhonchi. Back: non-tender, no CVA tenderness bilaterally to percussion. NO CTLS midline or paracervical tenderness to palpation. GI: Soft, no tenderness to palpation, no masses appreciated. No rebound, guarding, or rigidity noted. Musculoskeletal: The patient has full range of motion of all extremities and joints with no difficulty, 2+ pitting edema to bilateral lower extremities. Patient has no motor, no sensory deficits. Neurological: A&O x4, normal speech, no focal neurological deficits. Psychiatric: Cooperative Const Vital Signs: 10/09/23 10:38 10/09/23 10:44 10/09/23 10:56 Temperature 97.2 F L Temperature Source Temporal Pulse Rate 31 L 41 L Respiratory Rate 16 20 H Respiratory Effort Respiratory Depth Respiratory Pattern Blood Pressure 100/70 129/79 H Blood Pressure Mean 80 95 Pulse Ox 94 98 99 Oxygen Delivery Method Room Air Nasal Cannula Nasal Cannula Oxygen Flow Rate (L/min) 2 2 10/09/23 10:58 10/09/23 10:53 10/09/23 10:53 Temperature Temperature Source Pulse Rate 50 L Respiratory Rate 20 H Respiratory Effort Short of Breath Respiratory Depth Normal Respiratory Pattern Normal Normal Blood Pressure Blood Pressure Mean Pulse Ox 100 Oxygen Delivery Method Nasal Cannula Nasal Cannula Oxygen Flow Rate (L/min) 2 2 10/09/23 11:37 10/09/23 11:42 10/09/23 12:00 Temperature 97.5 F L 97.5 F L Temperature Source Oral Pulse Rate 34 L 39 L 39 L Respiratory Rate 15 14 14 Respiratory Effort Respiratory Depth Respiratory Pattern Blood Pressure 131/47 H 131/47 H 131/47 H Blood Pressure Mean 75 75 75 Pulse Ox 95 95 95 Oxygen Delivery Method Nasal Cannula Nasal Cannula Oxygen Flow Rate (L/min) 2 2 MDM MDM MDM Narrative Medical decision making narrative: [address] Castillo, she is willing to admit this patient. She will come to see and evaluate the patient. She wants to wait for the metabolic panel before the official admission is placed. She is aware of the need of dialysis today. 1115 Dr Castillo came to see and evaluate the patient in the ER. I spoke to her in person as well. Patient potassium is 5.2. She recommended placing patient on the PCU. Patient will also be given a second dose of atropine. We are currently working on getting patient dialysis, the dialysis team in the hospital was contacted at approximately 1015 to help reach dialysis sooner than later today. Dr Castillo is aware of this is as well. [address] Castillo on the phone again. She is aware of patient's heart rate in the upper 30s to low 40s. Patient was given a second dose of atropine with no significant relief. Patient normally has a heart rate in the 50s. She agrees with patient staying in the PCU, cardiology will be seeing the patient later today as well. Patient does take Plavix. Uncertain when slow A-fib may have started, patient is not aware of A-fib history. Further coagulation will be reviewed and discussed with cardiology and hospitalist whether additional anticoagulation should be started besides Plavix. Patient potassium was 5.2 Lab Data Attestation: I reviewed the patient's lab results. Labs: Laboratory Results - last 24 hr 10/09/23 10:40 WBC 6.7 RBC 2.95 L Hgb 11.1 L Hct 34.2 L MCV 115.9 H MCH 37.6 H MCHC 32.5 RDW Std Deviation 77.0 H RDW Coeff of Mihaela 17.9 H Plt Count 153 MPV 11.8 Immature Gran % (Auto) 0.300 Neut % (Auto) 61.3 Lymph % (Auto) 18.1 L [place] % (Auto) 19.0 H Eos % (Auto) 0.9 Baso % (Auto) 0.4 Absolute Neuts (auto) 4.1 Absolute Lymphs (auto) 1.21 Nucleated RBC % 0.3 Anisocytosis 1+ Sodium 132 L Potassium 5.2 H Chloride 95 L Carbon Dioxide 28.0 Anion Gap 9 BUN 56 H Creatinine 6.27 H Estim Creat Clear Calc 9.40 Est GFR (MDRD) Af Amer 11 L Est GFR (MDRD) Non-Af 9 L BUN/Creatinine Ratio 8.9 L Glucose 205 H Calcium 8.9 Troponin I High Sens 295 H* B-Natriuretic Peptide 2371.9 H Radiography Diagnostic Testing: Clinical Impression(s) from Imaging Studies Chest X-Ray 10/09/23 10:42 IMPRESSION: Increased interstitial pattern diffusely and increase in bilateral pleural effusions, compatible with worsening interstitial edema/congestive failure. Follow-up chest imaging to resolution recommended Electronically Signed: Alec Saeed MD at 11:12 EST , EKG Initial EKG: Attestation: I personally reviewed and interpreted this EKG as follows: Comments: EKG #1. EKG interpretation. EKG appears to be in slow A-fib, 49 beats a minute. This does not appear to be any type of acute block. Low voltage, no acute ST elevation. QTc of 448. EKG #2. EKG interpretation. Slow A-fib at 50 beats a minute. Normal axis deviation. No obvious heart block. QTc of 459, repeat EKG does not show any significant changes. Old EKG compared to August 05, 2023 shows normal axis deviation, artifact noted. Nonspecific ST changes in the lateral leads, QTc of 457, Discharge Plan Dx/Rx/DC Orders Clinical Impression: Atrial fibrillation, Bradycardia, Dyspnea, Hypoxia Disposition Disposition: Acute Care Hospital [facility] Discharge Date/Time: 10/09/23 12:58
--- NOTE | 2023-10-09 10:58 | HP.PCM_ITS ---
[facility] - General General Date of Admission: 10/09/23 Date of Service: 10/09/23 Chief Complaint: shortness of breath. HPI Narrative ABEL SOLIS, is a 82 M with a PMH as outlined who presents via the ED from the wound care center with a complaint of shortness of breath and lethargy. He went to the wound care center for evaluation and was noted to be more lethargic and weak. He denied any cough, chest pain, palpitations, dizziness, nausea, vomiting or any other symptoms. Patient is post have dialysis Wednesdays. He did not have dialysis on Saturday but had it on Saturday and was due to have it today as well. He was however brought into the ED because of his altered mental status and hypoxia. Vitals in the ED with temperature of 97.2 Fahrenheit with pulse rate which was as low as 31 but subsequently came up to 50, blood pressure 129/79 respiratory rate of 20. He was saturating at 98% on 2 L of oxygen. CBC showed hemoglobin of 11.1 with WBC of 6.7 and platelets of 153. Chemistry showed potassium of 5.2 and Cr of 5.27. Initial troponin was 295 and trended upwards to 315. BNP was also markedly elevated at 2371. He has been admitted to be managed for altered mental status and hypoxia likely due to bradycardia. Patient was initially admitted to the PCU as on review in the ED his heart rate was in the high 40s. However when patient got to the PCU his heart rate dropped down to the 20s and so he was to be transferred to the ICU for potential transcutaneous pacing. Cardiology was consulted cardiology took patient emergently to the Pharmacy Delivery Driver for transvenous pacing. [facility] Medical History Anemia Asthma Atrial fibrillation Benign essential HTN Brain aneurysm Chronic renal failure, stage 5 Closed head injury Colon polyps COPD (chronic obstructive pulmonary disease) CVA (cerebral vascular accident) Diabetes Dialysis complication Dialysis patient End stage renal disease End-stage renal disease on hemodialysis Fall Febrile illness, acute Fistula HCAP (healthcare-associated pneumonia) Hepatitis C History of GI bleed Hyperlipemia Hyponatremia Kidney disease Leukocytosis LFT elevation Metabolic encephalopathy Multifocal pneumonia NSTEMI, initial episode of care On home oxygen therapy Pneumonia Problem with dialysis access PVD (peripheral vascular disease) Sleep apnea Smoker TIA (transient ischemic attack) Tobacco use disorder Troponin level elevated Type II diabetes mellitus, uncontrolled Home Medications acetaminophen 325 mg tablet (Tylenol) 650 mg PO Q4H PRN PRN Pain Score 1-10/Temp > 100.7 F 10/10/21 [History Last Taken Unknown] bisacodyl 10 mg rectal suppository 10 mg [place] DAILY PRN Constipation 02/17/22 [History Last Taken Unknown] calcium acetate(phosphat bind) 667 mg capsule 1,334 mg PO TID binder 02/17/22 [History Last Taken Unknown] loperamide 2 mg capsule 2 mg PO Q6H PRN Diarrhea 02/17/22 [History Last Taken Unknown] triamcinolone acetonide 0.1 % topical cream 1 applic topical BID PRN psoriasis 02/17/22 [History Last Taken Unknown] amlodipine 5 mg tablet 5 mg PO BID blood pressure 05/26/23 [History Last Taken Unknown] clonidine HCl 0.2 mg tablet 0.2 mg PO DAILY PRN hypertensive emergency 07/24/23 [History Last Taken Unknown] guaifenesin 100 mg/5 mL oral liquid 200 mg PO Q6H PRN cough 07/24/23 [History Last Taken Unknown] insulin lispro 100 unit/mL subcutaneous pen (Humalog KwikPen (U-100) Insulin) 1 sliding scale dose subcut TID diabetes 07/24/23 [History Last Taken Unknown] magnesium hydroxide 30 ml PO .1 PRN constipation 08/05/23 [History Last Taken Unknown] vitamin B complex-vitamin C-folic acid 0.8 mg tablet (Nephro-Lola) 1 tab PO DAILY supplement 08/05/23 [History Last Taken Unknown] acetaminophen 650 mg rectal suppository 650 mg W[place] Q4H PRN fever or pain 08/26/23 [History Last Taken Unknown] aluminum-magnesium hydroxide 225 mg-200 mg/5 mL oral suspension 30 ml PO Q4H PRN heartburn 08/26/23 [History Last Taken Unknown] carvedilol 12.5 mg tablet 12.5 mg PO BID 08/26/23 [History Last Taken Unknown] glucagon 1 mg solution for injection (Glucagon Emergency Kit) 1 mg subcut Q20M PRN hypoglycemia 08/26/23 [History Last Taken Unknown] insulin lispro 100 unit/mL subcutaneous pen (Humalog Tempo Pen (U-100) Insulin) 2 unit subcut .AFTERNOON 08/26/23 [History Last Taken Unknown] mineral oil (Fleet Mineral Oil enema) 118 ml W[place] DAILY PRN constipation 08/26/23 [History Last Taken Unknown] clopidogrel 75 mg tablet 75 mg PO DAILY a-fib 10/03/23 [History Last Taken Unknown] Allergy/AdvReac Type Severity Reaction Status Date / Time milk Allergy Intermediate Diarrhea Verified 10/03/23 16:03 varenicline tartrate Allergy makes me Verified 10/03/23 16:03 [From Chantix] weird , hallucinations Family History (Updated 10/09/23 @ 16:[address] Serena Gee MD) Mother CVA (cerebral vascular accident) Diabetes Hypertension Father Colon cancer Diabetes Brother Diabetes Other Atrial fibrillation Surgical History history insertion dialysis catheter (~11/04/20) History of cataract extraction History of colectomy History of colonoscopy (~06/2020) History of surgery on left wrist History of vein stripping Social History (Updated 10/09/23 @ 13:53 by Janet Lepe) housing: retirement do you think of yourself as: straight/heterosexual current gender identity: male Smoking Status: Former smoker quit date: 07/22/23 pack-years: 65 Tobacco: How many years used: 65 second hand exposure: No alcohol intake: former details: Patient quit using alcohol 14 years ago substance use type: does not use Vital Signs Vital Signs Vital Signs: 10/09/23 10:38 10/09/23 10:44 10/09/23 10:56 Temperature 97.2 F L Temperature Source Temporal Pulse Rate 31 L 41 L Respiratory Rate 16 20 H Respiratory Pattern Blood Pressure 100/70 129/79 H Blood Pressure Mean 80 95 Pulse Ox 94 98 99 Oxygen Delivery Method Room Air Nasal Cannula Nasal Cannula Oxygen Flow Rate (L/min) 2 2 10/09/23 10:53 10/09/23 10:53 Temperature Temperature Source Pulse Rate 50 L Respiratory Rate 20 H Respiratory Pattern Normal Blood Pressure Blood Pressure Mean Pulse Ox 100 Oxygen Delivery Method Nasal Cannula Oxygen Flow Rate (L/min) 2 Weight Weight: 163 lb 12.855 oz Body Mass Index (BMI) 24.2 Physical Exam Const alert and oriented x3 General Appearance: cooperative Orientation / Consciousness: lethargic HEENT normocephalic and head/scalp atraumatic Mouth: dry mucous membranes Eyes PERRL and EOMs intact bilaterally Neck no lymphadenopathy and supple Lymph Lymphatic: no lymphadenopathy noted and no lymphedema noted Resp Resp Narrative: moderately diminished breath sounds bilaterally, bilateral crackles. on wheezin g. on 2L of oxygen at time of review Cardio S1 normal heart sound, S2 normal heart sound and no murmurs Cardio Narrative: bradycardia GI normal to inspection, nondistended, normoactive bowel sounds, soft to palpation and non-tender Extremity normal capillary refill, no clubbing, cyanosis or edema and no calf tenderness Skin Skin Narrative: left foot wrapped in bandage Neuro CN's II-XII intact bilaterally and no focal motor deficits Motor Exam: general weakness Psych thought process normal and cooperative Results Lab / Micro Data 10/09/23 10:40 10/09/23 10:40 Assessment & Plan Assessment/Plan (1) Hypoxia: (2) Dyspnea: (3) Bradycardia: (4) Fluid overload: PLAN: Plan #Symptomatic bradycardia * Patient initially admitted to the PCU and transferred emergently to the ICU because of worsening bradycardia * EKG showed A-fib with bradycardia * He received 3 doses of IV atropine 1 mg * Chest x-ray showed evidence of fluid overload * Cardiology consulted. Patient taken emergently to the Pharmacy Delivery Driver for trans venous pacing * Patient presents to the ICU after * IV atropine as needed. Bradycardia persists, will consider starting IV dopamine infusion * 2D echo from 2020 showed EF of 37% with moderate global hypokinesis of the LV and stage 1 diastolic dysfunction * tammi order 2D echo * discussed with cardiology; patient to be transferred to a tertiary facility for insertion of pacemaker. * #Acute hypoxic respiratory failure due to acute on chronic HFrEF * Patient up to 15 L of oxygen but he was initially on 2 L of oxygen. * Chest x-ray showed evidence of pulmonary vascular congestion. Patient due for dialysis today. This could not be done before he went down for the transvenous pacing due to concerns about his heart rate * Should improve with dialysis today. * Titrate oxygen to maintain saturation above 90%. Breathing treatments bronchodilators. * Consult critical care. * being dialysed which will help with fluid removal * #ESRD with mild hyperkalemia * On hemodialysis. * His usual schedule is Saturday. * Potassium is 5.2. Should improve with dialysis. * However he missed Saturday dialysis because it was . He did have dialysis yesterday and is scheduled for dialysis today. * Nephrology consulted. 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 * #Chronic left foot wound: * Due to diabetes. Follows up at the wound clinic and was seen later today prior to him coming in. To follow up with podiatry on outpatient basis #Hypertension: Carvedilol on hold due to bradycardia. On amlodipine. #History of colon cancer s/p colectomy. Stable. #History of CVA: On aspirin and Plavix. Not on statin DVT Prophylaxis; heparin Code status; full code * Patient counseled extensively about different types of CODE STATUS including full code, DNR CCA and DNR CCA. Patient elects to be full code * total face to face time 17 mins * Total time spent on evaluation and management of patient, reviewing chart, discussing plan with patient, discussion with nursing and ancillary staff as well as documentation: 77 mins Disposition: transfer initiated for insertion of permanent pacemaker 18:30 Patient accepted at [facility] Cardiac ICU. Patient to be picked up at 19:30 and transported to [facility]. Charges/Coding Visit Charges Inpatient E&M: 77199 Init Hosp L3 Procedures Hospitalists Procedures: 35307 Critical Care 1st Hr (advanced care pln:[id number])
[2023-10-09 10:59] LABS: Differential Indicated SCAN CRITERIA MET
[2023-10-09 11:13] LABS: Anisocytosis 1+
[2023-10-09 11:17] LABS: BNP,B-Type NATRIURETIC PEPTIDE 2371.9 pg/mL (0-100)
[2023-10-09 11:18] LABS: Anion Gap 9 (5-15); BUN 56 mg/dL (7-18); BUN/Creat Ratio 8.9 RATIO (10-20); Calcium,Total 8.9 mg/dL (8.5-10.1); Chloride 95 mmol/L (98-107); Creatinine, Serum 6.27 mg/dL (0.70-1.30); EST Glomerular Filtration Rate 9 mL/min (>60); Est Glom Filt Rate - Afr Amer 11 mL/min (>60); Glucose 205 mg/dL (74-106); Potassium 5.2 mmol/L (3.5-5.1); Sodium Level 132 mmol/L (136-145); Troponin-I HS 295 pg/mL (3.0-78.0)
[2023-10-09] MEDS: Atropine Sulfate 1 MG/10 ML Syringe IV (11:32)
--- NOTE | 2023-10-09 11:41 | ED.RN ---
CALLED AND UPDATED DAUGHTER, DANIEL DUARTE, ON PT STATUS AND DECISION TO ADMIT TO PCU. DAUGHTER STATES SHE WILL BE IN LATER TODAY TO SEE PT
[2023-10-09 12:31] LABS: Lactic Acid 2.1 mmol/L (0.4-1.9)
[2023-10-09 14:38] LABS: Troponin-I HS 315 pg/mL (3.0-78.0)
--- NOTE | 2023-10-09 14:39 | NURSING ---
at 1308 patient taken down to soap slabber nurse to nurse report given daughter present
[2023-10-09] MEDS: PureFlow B 2K Dialysis Soln 1 BAG 6 BAG PF (15:20)
--- NOTE | 2023-10-09 15:20 | HP.PCM.CAR_ITS ---
[facility] - General General Date of Admission: 10/09/23 Date of Service: 10/09/23 Chief Complaint: shortness of breath. HPI Narrative ABEL SOLIS, is a 82 M who presents with shortness of breath and lightheadedness. An 82-year-old male patient with past medical history of severe peripheral vascular disease, paroxysmal atrial fibrillation, ESRD on hemodialysis, congestive heart failure with moderate cardiomyopathy, EF of 37% which has been treated medically. Patient was in the wound center today and he was noted to have heart rate in the 20s so EMS was called and patient was transported to the ER. Patient said he was complaining of lightheadedness and shortness of breath today however denied any chest pain and denied syncope. EKG showed atrial fibrillation with slow ventricular response with a heart rate in the 30s beat per minute. There was no acute findings on EKG. Patient has bilateral lower extremity edema, orthopnea and shortness of breath. Labs showed hyperkalemia and slightly elevated troponin. [facility] Medical History Anemia Asthma Atrial fibrillation Benign essential HTN Brain aneurysm Chronic renal failure, stage 5 Closed head injury Colon polyps COPD (chronic obstructive pulmonary disease) CVA (cerebral vascular accident) Diabetes Dialysis complication Dialysis patient End stage renal disease End-stage renal disease on hemodialysis Fall Febrile illness, acute Fistula HCAP (healthcare-associated pneumonia) Hepatitis C History of GI bleed Hyperlipemia Hyponatremia Kidney disease Leukocytosis LFT elevation Metabolic encephalopathy Multifocal pneumonia NSTEMI, initial episode of care On home oxygen therapy Pneumonia Problem with dialysis access PVD (peripheral vascular disease) Sleep apnea Smoker TIA (transient ischemic attack) Tobacco use disorder Troponin level elevated Type II diabetes mellitus, uncontrolled Home Medications acetaminophen 325 mg tablet (Tylenol) 650 mg PO Q4H PRN PRN Pain Score 1-10/Temp > 100.7 F 10/10/21 [History Last Taken Unknown] bisacodyl 10 mg rectal suppository 10 mg SD DAILY PRN Constipation 02/17/22 [History Last Taken Unknown] calcium acetate(phosphat bind) 667 mg capsule 1,334 mg PO TID binder 02/17/22 [History Last Taken Unknown] loperamide 2 mg capsule 2 mg PO Q6H PRN Diarrhea 02/17/22 [History Last Taken Unknown] triamcinolone acetonide 0.1 % topical cream 1 applic topical BID PRN psoriasis 02/17/22 [History Last Taken Unknown] amlodipine 5 mg tablet 5 mg PO BID blood pressure 05/26/23 [History Last Taken Unknown] clonidine HCl 0.2 mg tablet 0.2 mg PO DAILY PRN hypertensive emergency 07/24/23 [History Last Taken Unknown] guaifenesin 100 mg/5 mL oral liquid 200 mg PO Q6H PRN cough 07/24/23 [History Last Taken Unknown] insulin lispro 100 unit/mL subcutaneous pen (Humalog KwikPen (U-100) Insulin) 1 sliding scale dose subcut TID diabetes 07/24/23 [History Last Taken Unknown] magnesium hydroxide 30 ml PO .1 PRN constipation 08/05/23 [History Last Taken Unknown] vitamin B complex-vitamin C-folic acid 0.8 mg tablet (Nephro-Lola) 1 tab PO DAILY supplement 08/05/23 [History Last Taken Unknown] acetaminophen 650 mg rectal suppository 650 mg SD Q4H PRN fever or pain 08/26/23 [History Last Taken Unknown] aluminum-magnesium hydroxide 225 mg-200 mg/5 mL oral suspension 30 ml PO Q4H PRN heartburn 08/26/23 [History Last Taken Unknown] carvedilol 12.5 mg tablet 12.5 mg PO BID 08/26/23 [History Last Taken Unknown] glucagon 1 mg solution for injection (Glucagon Emergency Kit) 1 mg subcut Q20M PRN hypoglycemia 08/26/23 [History Last Taken Unknown] insulin lispro 100 unit/mL subcutaneous pen (Humalog Tempo Pen (U-100) Insulin) 2 unit subcut .AFTERNOON 08/26/23 [History Last Taken Unknown] mineral oil (Fleet Mineral Oil enema) 118 ml SD DAILY PRN constipation 08/26/23 [History Last Taken Unknown] clopidogrel 75 mg tablet 75 mg PO DAILY a-fib 10/03/23 [History Last Taken Unknown] Allergy/AdvReac Type Severity Reaction Status Date / Time milk Allergy Intermediate Diarrhea Verified 10/03/23 16:03 varenicline tartrate Allergy makes me Verified 10/03/23 16:03 [From Chanjamaicax] loyd oseguera Family History Mother CVA (cerebral vascular accident) Diabetes Hypertension Father Colon cancer Diabetes Brother Diabetes Surgical History history insertion dialysis catheter (~11/04/20) History of cataract extraction History of colectomy History of colonoscopy (~06/2020) History of surgery on left wrist History of vein stripping Social History (Updated 10/09/23 @ 13:53 by Janet Lepe) housing: [email or web address] Smoking Status: Former smoker quit date: 07/22/23 pack-years: 65 Tobacco: How many years used: 65 second hand exposure: No alcohol intake: former details: Patient quit using alcohol 14 years ago substance use type: does not use Vital Signs Vital Signs Vital Signs: 10/09/23 10:38 10/09/23 10:44 10/09/23 10:56 Temperature 97.2 F L Temperature Source Temporal Pulse Rate 31 L 41 L Respiratory Rate 16 20 H Respiratory Effort Respiratory Depth Respiratory Pattern Blood Pressure 100/70 129/79 H Blood Pressure [BP] Blood Pressure Mean 80 95 Blood Pressure Mean [BP] Blood Pressure Source Blood Pressure Source [BP] Blood Pressure Position Blood Pressure Position [BP] Blood Pressure Location Blood Pressure Location [BP] Pulse Ox 94 98 99 Oxygen Delivery Method Room Air Nasal Cannula Nasal Cannula Oxygen Flow Rate (L/min) 2 2 10/09/23 10:58 10/09/23 10:53 10/09/23 10:53 Temperature Temperature Source Pulse Rate 50 L Respiratory Rate 20 H Respiratory Effort Short of Breath Respiratory Depth Normal Respiratory Pattern Normal Normal Blood Pressure Blood Pressure [BP] Blood Pressure Mean Blood Pressure Mean [BP] Blood Pressure Source Blood Pressure Source [BP] Blood Pressure Position Blood Pressure Position [BP] Blood Pressure Location Blood Pressure Location [BP] Pulse Ox 100 Oxygen Delivery Method Nasal Cannula Nasal Cannula Oxygen Flow Rate (L/min) 2 2 10/09/23 11:37 10/09/23 11:42 10/09/23 12:00 Temperature 97.5 F L 97.5 F L Temperature Source Oral Pulse Rate 34 L 39 L 39 L Respiratory Rate 15 14 14 Respiratory Effort Respiratory Depth Respiratory Pattern Blood Pressure 131/47 H 131/47 H 131/47 H Blood Pressure [BP] Blood Pressure Mean 75 75 75 Blood Pressure Mean [BP] Blood Pressure Source Blood Pressure Source [BP] Blood Pressure Position Blood Pressure Position [BP] Blood Pressure Location Blood Pressure Location [BP] Pulse Ox 95 95 95 Oxygen Delivery Method Nasal Cannula Nasal Cannula Oxygen Flow Rate (L/min) 2 2 10/09/23 13:07 10/09/23 13:17 10/09/23 14:50 Temperature 97.2 F L Temperature Source Oral Pulse Rate 34 L 42 L 65 Respiratory Rate 15 12 15 Respiratory Effort Respiratory Depth Respiratory Pattern Blood Pressure 114/68 Blood Pressure [BP] 119/43 L Blood Pressure Mean 83 Blood Pressure Mean [BP] 68 Blood Pressure Source Monitor Blood Pressure Source [BP] Monitor Blood Pressure Position Semi-Fowlers Blood Pressure Position [BP] Semi-Fowlers Blood Pressure Location Right Arm Blood Pressure Location [BP] Right Arm Pulse Ox 95 100 94 Oxygen Delivery Method Nasal Cannula Nasal Cannula Nasal Cannula Oxygen Flow Rate (L/min) 15 15 8 Weight Weight: 156 lb 1.396 oz Body Mass Index (BMI) 23.1 Cardiology Labs/Tests Cardiology Labs/Tests: 10/09/23 10:40: WBC 6.7, RBC 2.95 L, Hgb 11.1 L, Hct 34.2 L, MCV 115.9 H, MCH 37.6 H, MCHC 32.5, Plt Count 153, MPV 11.8, Immature Gran % (Auto) 0.300, Neut % (Auto) 61.3, Lymph % (Auto) 18.1 L, [place] % (Auto) 19.0 H, Eos % (Auto) 0.9, Baso % (Auto) 0.4, Absolute Neuts (auto) 4.1, Nucleated RBC % 0.3, Sodium 132 L, Potassium 5.2 H, Chloride 95 L, Carbon Dioxide 28.0, Anion Gap 9, BUN 56 H, Creatinine 6.27 H, Est GFR (MDRD) Af Amer 11 L, Est GFR (MDRD) Non-Af 9 L, BUN/Creatinine Ratio 8.9 L, Glucose 205 H, Calcium 8.9, B-Natriuretic Peptide 2371.9 H 10/09/23 12:37: Lactic Acid 2.1 H* Cardiology Impression Chest X-Ray 10/09/23 10:42 IMPRESSION: Increased interstitial pattern diffusely and increase in bilateral pleural effusions, compatible with worsening interstitial edema/congestive failure. Follow-up chest imaging to resolution recommended Electronically Signed: Alec Saeed MD at 11:12 EST , Rhythm: EKG: ECHO: Stress Test: Cardiac Cath: PCI: CT Surgery: Holter monitor: EPS: PPM: CXR: Chest CT Scan:
[2023-10-09] MEDS: 0.9% Normal Saline 1,000 ML IV.SOLN. 1000 ML OPERA.SITE (15:21)
--- NOTE | 2023-10-09 15:32 | PCM.CONS.C ---
Assessment & Plan Assessment/Plan (1) Bradycardia: PLAN: Symptomatic bradycardia, EKG showed atrial fibrillation with slow ventricular response. Patient is in acute congestive heart failure which probably is exaggerated by his bradycardia. Will proceed with temporary pacemaker. 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 Patient will need to be evaluated by EP for an inpatient permanent pacemaker. (2) ESRD (end stage renal disease) on dialysis: PLAN: Consult nephrology for hemodialysis (3) Congestive heart failure with cardiomyopathy: PLAN: Patient is known to have EF of 37% who has been on medical therapy because he has not been having any chest pain. Please consult nephrology for dialysis to pull off fluids as the patient is in congestive heart failure. Will proceed with temporary pacemaker (4) Adenocarcinoma of upper lobe of right lung: PLAN: Treatment as per primary team. (5) Atrial fibrillation: QUALIFIERS: Atrial fibrillation type: longstanding persistent Qualified Code(s): I48.11 - Longstanding persistent atrial fibrillation PLAN: Start patient on heparin drip for stroke prophylaxis. EKG showed atrial fibrillation with slow ventricular response Will hold off any AV sanjay blockers in the meantime (6) NSTEMI (non-ST elevated myocardial infarction): PLAN: Slightly elevated and non-ACS trend likely related to severe bradycardia, acute congestive heart failure and ESRD. Patient is not having any chest pain, he is known to have moderately depressed ejection fraction with an EF of 37%. Will repeat echocardiogram. Patient daughter does not want to proceed with aggressive measurements including left heart catheterization until they know the stage of his newly diagnosed lung cancer. PLAN: Plan Will proceed with temporary pacemaker for now HPI Consult Data Date of Consult: 10/09/23 HPI Narrative Reason for Consultation: Bradycardia HPI Narrative: ABEL SOLIS, is a 82 M who presents with shortness of breath and lightheadedness. An 82-year-old male patient with past medical history of severe peripheral vascular disease, paroxysmal atrial fibrillation, ESRD on hemodialysis, congestive heart failure with moderate cardiomyopathy, EF of 37% which has been treated medically. He was recently found to have lung cancer, he had recent lung biopsy a week ago and since then he has been holding his Eliquis. Stage of the lung cancer is not known yet. Patient is supposed to undergo PET scan for staging. Patient was in the wound center today and he was noted to have heart rate in the 20s so EMS was called and patient was transported to the ER. Patient said he was complaining of lightheadedness and shortness of breath today however denied any chest pain and denied syncope. EKG showed atrial fibrillation with slow ventricular response with a heart rate in the 30s beat per minute. There was no acute findings on EKG. Blood pressure has been stable. Patient has bilateral lower extremity edema, orthopnea and shortness of breath. Labs showed hyperkalemia and slightly elevated troponin. I discussed the case with the patient and his daughter. Patient and daughter would like to proceed with the most conservative pathway for now until his lung cancer stage is known. Patient daughter agreed to proceed with temporary pacemaker. [facility] Medical History Anemia Asthma Atrial fibrillation Benign essential HTN Brain aneurysm Chronic renal failure, stage 5 Closed head injury Colon polyps COPD (chronic obstructive pulmonary disease) CVA (cerebral vascular accident) Diabetes Dialysis complication Dialysis patient End stage renal disease End-stage renal disease on hemodialysis Fall Febrile illness, acute Fistula HCAP (healthcare-associated pneumonia) Hepatitis C History of GI bleed Hyperlipemia Hyponatremia Kidney disease Leukocytosis LFT elevation Metabolic encephalopathy Multifocal pneumonia NSTEMI, initial episode of care On home oxygen therapy Pneumonia Problem with dialysis access PVD (peripheral vascular disease) Sleep apnea Smoker TIA (transient ischemic attack) Tobacco use disorder Troponin level elevated Type II diabetes mellitus, uncontrolled Home Medications acetaminophen 325 mg tablet (Tylenol) 650 mg PO Q4H PRN PRN Pain Score 1-10/Temp > 100.7 F 10/10/21 [History Last Taken Unknown] bisacodyl 10 mg rectal suppository 10 mg [place] DAILY PRN Constipation 02/17/22 [History Last Taken Unknown] calcium acetate(phosphat bind) 667 mg capsule 1,334 mg PO TID binder 02/17/22 [History Last Taken Unknown] loperamide 2 mg capsule 2 mg PO Q6H PRN Diarrhea 02/17/22 [History Last Taken Unknown] triamcinolone acetonide 0.1 % topical cream 1 applic topical BID PRN psoriasis 02/17/22 [History Last Taken Unknown] amlodipine 5 mg tablet 5 mg PO BID blood pressure 05/26/23 [History Last Taken Unknown] clonidine HCl 0.2 mg tablet 0.2 mg PO DAILY PRN hypertensive emergency 07/24/23 [History Last Taken Unknown] guaifenesin 100 mg/5 mL oral liquid 200 mg PO Q6H PRN cough 07/24/23 [History Last Taken Unknown] insulin lispro 100 unit/mL subcutaneous pen (Humalog KwikPen (U-100) Insulin) 1 sliding scale dose subcut TID diabetes 07/24/23 [History Last Taken Unknown] magnesium hydroxide 30 ml PO .1 PRN constipation 08/05/23 [History Last Taken Unknown] vitamin B complex-vitamin C-folic acid 0.8 mg tablet (Nephro-Lola) 1 tab PO DAILY supplement 08/05/23 [History Last Taken Unknown] acetaminophen 650 mg rectal suppository 650 mg MN Q4H PRN fever or pain 08/26/23 [History Last Taken Unknown] aluminum-magnesium hydroxide 225 mg-200 mg/5 mL oral suspension 30 ml PO Q4H PRN heartburn 08/26/23 [History Last Taken Unknown] carvedilol 12.5 mg tablet 12.5 mg PO BID 08/26/23 [History Last Taken Unknown] glucagon 1 mg solution for injection (Glucagon Emergency Kit) 1 mg subcut Q20M PRN hypoglycemia 08/26/23 [History Last Taken Unknown] insulin lispro 100 unit/mL subcutaneous pen (Humalog Tempo Pen (U-100) Insulin) 2 unit subcut .AFTERNOON 08/26/23 [History Last Taken Unknown] mineral oil (Fleet Mineral Oil enema) 118 ml [place] DAILY PRN constipation 08/26/23 [History Last Taken Unknown] clopidogrel 75 mg tablet 75 mg PO DAILY a-fib 10/03/23 [History Last Taken Unknown] Allergy/AdvReac Type Severity Reaction Status Date / Time milk Allergy Intermediate Diarrhea Verified 10/03/23 16:03 [email or web address] tartrate Allergy makes me Verified 10/03/23 16:03 [From Chantix] loyd oseguera Family History (Updated 10/09/23 @ 16:[address] Serena Gee MD) Mother CVA (cerebral vascular accident) Diabetes Hypertension Father Colon cancer Diabetes Brother Diabetes Other Atrial fibrillation Surgical History history insertion dialysis catheter (~11/04/20) History of cataract extraction History of colectomy History of colonoscopy (~06/2020) History of surgery on left wrist History of vein stripping Social History (Updated 10/09/23 @ 13:53 by Janet Lepe) housing: [facility] Smoking Status: Former smoker quit date: 07/22/23 pack-years: 65 Tobacco: How many years used: 65 second hand exposure: No alcohol intake: former details: Patient quit using alcohol 14 years ago substance use type: does not use ROS ROS Narrative 12 point review of systems were obtained, negative other than what mentioned HPI. Physical Exam Const alert and oriented x3 HEENT normocephalic and head/scalp atraumatic Eyes PERRL and EOMs intact bilaterally Chest inspection of chest normal and palpation of chest normal Resp normal respiratory effort Auscultation: crackles, rales and rhonchi Cardio S1 normal heart sound and S2 normal heart sound Rate: bradycardia and other; Negative for regular rate Extremity Negative for no pedal edema Skin no rashes or lesions noted Risk Stratification Risk Stratification Applicable: No Objective Data Vital Signs: Vital Signs Temp Pulse Resp BP Pulse Ox O2 Del Method O2 Flow Rate 97.2 F L 63 19 H 141/91 H 88 Nasal Cannula 8 10/09/23 15:20 10/09/23 15:20 10/09/23 15:20 10/09/23 15:20 10/09/23 15:20 10/09/23 15:20 10/09/23 15:20 Oxygen Flow Rate (L/min) 8 Oxygen Delivery Method Nasal Cannula Weight: 156 lb 1.396 oz Body Mass Index (BMI) 23.1 Lab / Micro Data 10/09/23 10:40 10/09/23 10:40 Labs: Laboratory Results - last 24 hr 10/09/23 10:40: WBC 6.7, RBC 2.95 L, Hgb 11.1 L, Hct 34.2 L, MCV 115.9 H, MCH 37.6 H, MCHC 32.5, RDW Std Deviation 77.0 H, RDW Coeff of Mihaela 17.9 H, Plt Count 153, MPV 11.8, Immature Gran % (Auto) 0.300, Neut % (Auto) 61.3, Lymph % (Auto) 18.1 L, [place] % (Auto) 19.0 H, Eos % (Auto) 0.9, Baso % (Auto) 0.4, Absolute Neuts (auto) 4.1, Absolute Lymphs (auto) 1.21, Nucleated RBC % 0.3, Anisocytosis 1+, Sodium 132 L, Potassium 5.2 H, Chloride 95 L, Carbon Dioxide 28.0, Anion Gap 9, BUN 56 H, Creatinine 6.27 H, Estim Creat Clear Calc 9.40, Est GFR (MDRD) Af Amer 11 L, Est GFR (MDRD) Non-Af 9 L, BUN/Creatinine Ratio 8.9 L, Glucose 205 H, Calcium 8.9, Troponin I High Sens 295 H*, B-Natriuretic Peptide 2371.9 H 10/09/23 12:37: Lactic Acid 2.1 H* 10/09/23 14:00: Troponin I High Sens 315 H* Micro: Microbiology 10/09/23 10:58 Mucosa - Nasopharyngeal RSV RNA Qualitative (PCR) - Final RSV 10/09/23 10:55 Nasal Secretion SARS-CoV-2 & FLU Antigen (Rapid) - Final Cardiology Labs/Tests 10/09/23 10:40: WBC 6.7, RBC 2.95 L, Hgb 11.1 L, Hct 34.2 L, MCV 115.9 H, MCH 37.6 H, MCHC 32.5, Plt Count 153, MPV 11.8, Immature Gran % (Auto) 0.300, Neut % (Auto) 61.3, Lymph % (Auto) 18.1 L, [place] % (Auto) 19.0 H, Eos % (Auto) 0.9, Baso % (Auto) 0.4, Absolute Neuts (auto) 4.1, Nucleated RBC % 0.3, Sodium 132 L, Potassium 5.2 H, Chloride 95 L, Carbon Dioxide 28.0, Anion Gap 9, BUN 56 H, Creatinine 6.27 H, Est GFR (MDRD) Af Amer 11 L, Est GFR (MDRD) Non-Af 9 L, BUN/Creatinine Ratio 8.9 L, Glucose 205 H, Calcium 8.9, B-Natriuretic Peptide 2371.9 H 10/09/23 12:37: Lactic Acid 2.1 H* Rhythm: EKG: ECHO: Stress Test: Cardiac Cath: PCI: CT Surgery: Holter monitor: EPS: PPM: CXR: Chest CT Scan: Radiography Diagnostic Testing: Radiology Impression Chest X-Ray 10/09/23 10:42 IMPRESSION: Increased interstitial pattern diffusely and increase in bilateral pleural effusions, compatible with worsening interstitial edema/congestive failure. Follow-up chest imaging to resolution recommended Electronically Signed: Alec Saeed MD at 11:12 EST ,
--- NOTE | 2023-10-09 15:32 | CASEMGMT ---
[facility] is as follows: [facility], [place], [facility], [facility], [facility], [facility], [place], [place], [facility], [facility]), and . Monica Locke, Discharge Planning Asst.
[2023-10-09 16:37] LABS: Reflex Lactate? Y
[2023-10-09 17:40] LABS: Lactic Acid 0.6 mmol/L (0.4-1.9)
--- NOTE | 2023-10-09 17:45 | NURSING ---
approximately 1730, pt manually pulled both arterial & venous out by hand. pt was restless from the very start of tx- pulling at fistula needle tape & attempting to move from side to side. both needles were secured w/ tape x3, including butterfly tape technique at both sites. In addition, gauze roll bandage taped around both sites @ circumference of arm, but not restrictive enough to inhibit flow of fistula or effect distal radial pulse. Fortunately, this RN & staff auditor were both in pt room when pt pulled his needles out & were able to apply pressure to sites immediately. upon visual inspection, small tear at venous site observed & was bleeding more than arterial needle site. surgifoam applied to venous needle site & gauze placed over both sites until hemostasis visually achieved. gauze bandages applied to both sites once hemostasis achieved. estimated blood loss <100ml. epic professional notified.
--- NOTE | 2023-10-09 18:01 | NURSING ---
report called to [facility] will transfer to T1 floor [id number], daughter present & aware of room number &plan of care
--- NOTE | 2023-10-09 18:34 | DS.PCM_ITS ---
Providers Date of Admission: 10/09/23 Date of Discharge: 10/09/23 Primary Care Physician: Dr. Fay Diaz MD Consultations 10/09/23 12:45 Consult: Cardiology Routine Consulting Provider: Serena Gee Reason for Consult: bradycardia EMERGENT Consult: No Notified: Yes Date Notified: 10/09/23 Time Notified: 12:58 Method of Notification: Verbal Comments:: take to director of laboratory operations for temp pacer Consult: Nephrology Routine Consulting Provider: Marilyn Hinton Reason for Consult: ESRD,needs dialysis EMERGENT Consult: No Notified: Yes Date Notified: 10/09/23 Time Notified: 11:49 Method of Notification: Text 10/09/23 15:04 Consult: Plate Developer / Pulmonary Medicine Routine Consulting Provider: Pulmonary Medicine lucy [place] Reason for Consult: acute hypoxic resp failure EMERGENT Consult: No Notified: Yes Date Notified: 10/09/23 Time Notified: 15:04 Method of Notification: Text Reason For Visit: bradycardia Diagnosis Discharge Diagnosis (1) Hypoxia: Status: Acute Code(s): R09.02 - Hypoxemia (2) Dyspnea: Status: Acute Code(s): R06.00 - Dyspnea, unspecified (3) Bradycardia: Status: Acute Code(s): R00.1 - Bradycardia, unspecified (4) Fluid overload: Status: Acute Code(s): E87.70 - Fluid overload, unspecified Plan #Symptomatic bradycardia * Patient initially admitted to the PCU and transferred emergently to the ICU because of worsening bradycardia * EKG showed A-fib with bradycardia * He received 3 doses of IV atropine 1 mg * Chest x-ray showed evidence of fluid overload * Cardiology consulted. Patient taken emergently to the [facility] for trans venous pacing * Patient presents to the ICU after * IV atropine as needed. Bradycardia persists, will consider starting IV dopa mine infusion * 2D echo from 2020 showed EF of 37% with moderate global hypokinesis of the LV and stage 1 diastolic dysfunction * tammi order 2D echo * discussed with cardiology; patient to be transferred to a tertiary facility for insertion of pacemaker. * #Acute hypoxic respiratory failure due to acute on chronic HFrEF * Patient up to 15 L of oxygen but he was initially on 2 L of oxygen. * Chest x-ray showed evidence of pulmonary vascular congestion. Patient due for dialysis today. This could not be done before he went down for the transvenous pacing due to concerns about his heart rate * Should improve with dialysis today. * Titrate oxygen to maintain saturation above 90%. Breathing treatments bronchodilators. * Consult critical care. * being dialysed which will help with fluid removal * #ESRD with mild hyperkalemia * On hemodialysis. * His usual schedule is Saturday. * Potassium is 5.2. Should improve with dialysis. * However he missed Saturday dialysis because it was . He did have dialysis yesterday and is scheduled for dialysis today. * Nephrology consulted. 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 * #Chronic left foot wound: * Due to diabetes. Follows up at the wound clinic and was seen later today prior to him coming in. To follow up with podiatry on outpatient basis #Hypertension: Carvedilol on hold due to bradycardia. On amlodipine. #History of colon cancer s/p colectomy. Stable. #History of CVA: On aspirin and Plavix. Not on statin DVT Prophylaxis; heparin Code status; full code * Patient counseled extensively about different types of CODE STATUS including full code, DNR CCA and DNR CCA. Patient elects to be full code * total face to face time 17 mins * Total time spent on evaluation and management of patient, reviewing chart, discussing plan with patient, discussion with nursing and ancillary staff as well as documentation: 77 mins Disposition: transfer initiated for insertion of permanent pacemaker 18:30 Patient accepted at [facility] Cardiac ICU. Patient to be picked up at 19:30 and transported to [facility]. Medications at Discharge Home Medications acetaminophen 325 mg tablet (Tylenol) 650 mg PO Q4H PRN PRN Pain Score 1-10/Temp > 100.7 F 10/10/21 bisacodyl 10 mg rectal suppository 10 mg ME DAILY PRN Constipation 02/17/22 calcium acetate(phosphat bind) 667 mg capsule 1,334 mg PO TID binder 02/17/22 loperamide 2 mg capsule 2 mg PO Q6H PRN Diarrhea 02/17/22 triamcinolone acetonide 0.1 % topical cream 1 applic topical BID PRN psoriasis 02/17/22 amlodipine 5 mg tablet 5 mg PO BID blood pressure 05/26/23 clonidine HCl 0.2 mg tablet 0.2 mg PO DAILY PRN hypertensive emergency 07/24/23 guaifenesin 100 mg/5 mL oral liquid 200 mg PO Q6H PRN cough 07/24/23 insulin lispro 100 unit/mL subcutaneous pen (Humalog KwikPen (U-100) Insulin) 1 sliding scale dose subcut TID diabetes 07/24/23 magnesium hydroxide 30 ml PO .1 PRN constipation 08/05/23 vitamin B complex-vitamin C-folic acid 0.8 mg tablet (Nephro-Lola) 1 tab PO DA KIMBERLI supplement 08/05/23 acetaminophen 650 mg rectal suppository 650 mg ME Q4H PRN fever or pain 08/26/23 aluminum-magnesium hydroxide 225 mg-200 mg/5 mL oral suspension 30 ml PO Q4H PRN heartburn 08/26/23 carvedilol 12.5 mg tablet 12.5 mg PO BID 08/26/23 glucagon 1 mg solution for injection (Glucagon Emergency Kit) 1 mg subcut Q20M PRN hypoglycemia 08/26/23 insulin lispro 100 unit/mL subcutaneous pen (Humalog Tempo Pen (U-100) Insulin) 2 unit subcut .AFTERNOON 08/26/23 mineral oil (Fleet Mineral Oil enema) 118 ml ME DAILY PRN constipation 08/26/23 clopidogrel 75 mg tablet 75 mg PO DAILY a-fib 10/03/23 Hospital Course Procedures None Summary of Care Provided Minutes Spent on Discharge: 55 Hospital Course: ABEL SOLIS, is a 82 M with a PMH as outlined who presents via the ED from the wound care center with a complaint of shortness of breath and lethargy. He went to the wound care center for evaluation and was noted to be more lethargic and weak. He denied any cough, chest pain, palpitations, dizziness, nausea, vomiting or any other symptoms. Patient is post have dialysis Wednesdays. He did not have dialysis on Saturday but had it on Saturday and was due to have it today as well. He was however brought into the ED because of his altered mental status and hypoxia. Vitals in the ED with temperature of 97.2 Fahrenheit with pulse rate which was as low as 31 but subsequently came up to 50, blood pressure 129/79 respiratory rate of 20. He was saturating at 98% on 2 L of oxygen. CBC showed hemoglobin of 11.1 with WBC of 6.7 and platelets of 153. Chemistry showed potassium of 5.2 and Cr of 5.27. Initial troponin was 295 and trended upwards to 315. BNP was also markedly elevated at 2371. He has been admitted to be managed for altered mental status and hypoxia likely due to bradycardia. Patient was initially a dmitted to the PCU as on review in the ED his heart rate was in the high 40s. However when patient got to the PCU his heart rate dropped down to the 20s and so he was to be transferred to the ICU for potential transcutaneous pacing. Cardiology was consulted cardiology took patient emergently to the [facility] for transvenous pacing. Patient had the transvenous pacing done and was admitted to the ICU afterwards. Nephrology was consulted for dialysis.Decision was made to transfer patient emergently as he may need a permanent pacemaker. Patient was accepted at [facility] and was transferred to [facility] on 10/09/2023. Patient was seen and examined on day of admission and discharge, which is the same date. Please refer to admission H&P for review of systems. Physical Exam Const alert and oriented x3 General Appearance: cooperative Orientation / Consciousness: lethargic HEENT normocephalic and head/scalp atraumatic Eyes PERRL and EOMs intact bilaterally Neck no lymphadenopathy and supple Lymph Lymphatic: no lymphadenopathy noted and no lymphedema noted Resp Resp Narrative: moderately diminished breath sounds bilaterally, bilateral crackles. on wheezing. on 2L of oxygen at time of review Cardio S1 normal heart sound, S2 normal heart sound and no murmurs Cardio Narrative: bradycardia GI normal to inspection, nondistended, normoactive bowel sounds, soft to palpation and non-tender Extremity normal capillary refill, no clubbing, cyanosis or edema and no calf tenderness Skin Skin Narrative: left foot wrapped in bandage Neuro CN's II-XII intact bilaterally and no focal motor deficits Motor Exam: general weakness Psych thought process normal and cooperative Weight / BMI Weight Weight: 151 lb 0.266 oz Body Mass Index (BMI) 22.4 ABG / Lab / Microbiology Data 10/09/23 10:40 10/09/23 10:40 Laboratory: Laboratory Results - last 24 hr 10/09/23 10:40: WBC 6.7, RBC 2.95 L, Hgb 11.1 L, Hct 34.2 L, MCV 115.9 H, MCH 37.6 H, MCHC 32.5, RDW Std Deviation 77.0 H, RDW Coeff of Mihaela 17.9 H, Plt Count 153, MPV 11.8, Immature Gran % (Auto) 0.300, Neut % (Auto) 61.3, Lymph % (Auto) 18.1 L, [place] % (Auto) 19.0 H, Eos % (Auto) 0.9, Baso % (Auto) 0.4, Absolute Neuts (auto) 4.1, Absolute Lymphs (auto) 1.21, Nucleated RBC % 0.3, Anisocytosis 1+, Sodium 132 L, Potassium 5.2 H, Chloride 95 L, Carbon Dioxide 28.0, Anion Gap 9, BUN 56 H, Creatinine 6.27 H, Estim Creat Clear Calc 9.40, Est GFR (MDRD) Af Amer 11 L, Est GFR (MDRD) Non-Af 9 L, BUN/Creatinine Ratio 8.9 L, Glucose 205 H, Calcium 8.9, Troponin I High Sens 295 H*, B-Natriuretic Peptide 2371.9 H 10/09/23 12:37: Lactic Acid 2.1 H* 10/09/23 14:00: Troponin I High Sens 315 H* 10/09/23 17:00: Lactic Acid 0.6 Microbiology: Microbiology 10/09/23 10:58 Mucosa - Nasopharyngeal RSV RNA Qualitative (PCR) - Final RSV 10/09/23 10:55 Nasal Secretion SARS-CoV-2 & FLU Antigen (Rapid) - Final Radiography Diagnostic Testing: Radiology Impression Chest X-Ray 10/09/23 10:42 IMPRESSION: Increased interstitial pattern diffusely and increase in bilateral pleural effusions, compatible with worsening interstitial edema/congestive failure. Follow-up chest imaging to resolution recommended Electronically Signed: Alec Saeed MD at 11:12 EST , Meaningful Use Info Meaningful Use Diagnoses (Choose all that apply): CHF CHF HERNESTO/ARB ordered at discharge?: No Reason HERNESTO/ARB not ordered?: Not indicated Documented LVEF (%): 37 Discharge Plan Admission Admit Date/Time: 10/09/23 11:40 Attending Provider: Gretel Castillo Primary Care Provider: Fay Diaz Consulting Providers: Marilyn Hinton; Serena Gee; Pedro Gan; Eddy Mclean; Shane Marin; Chloe Marie NP; Lowell Mcgowan Discharge Orders/Prescriptions Prescriptions: No Action acetaminophen 650 mg suppository 650 mg ME Q4H PRN (Reason: fever or pain) aluminum-magnesium hydroxide 225-200 mg/5 mL suspension 30 ml PO Q4H PRN (Reason: heartburn) carvedilol 12.5 mg tablet 12.5 mg PO BID Rx Instructions: must administer with a meal/food mineral oil [Fleet Mineral Oil] Enema 118 ml ME DAILY PRN (Reason: constipation) Rx Instructions: discard any unused portion Glucagon Emergency Kit (human) 1 mg recon soln 1 mg subcut Q20M PRN (Reason: hypoglycemia) Rx Instructions: until target blood sugar attained insulin lispro [Humalog Tempo Pen(U-100)Insuln] 100 unit/mL insulin pen 2 unit subcut .AFTERNOON clopidogrel 75 mg tablet 75 mg PO DAILY acetaminophen [Tylenol] 325 mg tablet 650 mg PO Q4H PRN PRN (Reason: Pain Score 1-10/Temp > 100.7 F) loperamide 2 mg Capsule 2 mg PO Q6H PRN (Reason: Diarrhea) triamcinolone acetonide 0.1 % Cream 1 applic TOPICAL BID PRN (Reason: psoriasis) bisacodyl 10 mg Suppository 10 mg ME DAILY PRN (Reason: Constipation) calcium acetate(phosphat bind) 667 mg Capsule 1,334 mg PO TID Patient Comments: give with meals clonidine HCl 0.2 mg tablet 0.2 mg PO DAILY PRN (Reason: hypertensive emergency) Patient Comments: take as needed for bp >160 guaifenesin 100 mg/5 mL liquid 200 mg PO Q6H PRN (Reason: cough) insulin lispro [Humalog KwikPen Insulin] 100 unit/mL insulin pen 1 sliding scale dose subcut TID Rx Instructions: takes 2 units subcutaneously in the afternoon amlodipine 5 mg tablet 5 mg PO BID Nephro-Lola 0.8 mg tablet 1 tab PO DAILY magnesium hydroxide [[place] Milk of Magnesia] 30 ml PO .1 PRN (Reason: constipation) Referrals / Follow Up: Fay Diaz MD [Primary Care Provider] - Disposition Disposition (needs filled in before D/C Order can be placed): Acute Care Hospital Charges/Coding Visit Charges Inpatient E&M: 86612 Disch Hosp >30min
--- NOTE | 2023-10-09 19:04 | PCM.OPRPT ---
Report of Operation Date of Procedure: 10/09/23 Pre-Operative Diagnosis: Symptomatic bradycardia Post-Operative Diagnosis: Same Surgery/Procedure Performed:: Temporary pacemaker placement Description of Surgical Findings:: Procedure performed: Temporary pacemaker placement into the RV apex Patient was brought down to the [facility] for temporary pacemaker placement due to symptomatic bradycardia as detailed in the consultation note. Patient heart rate was in the 20s beat per minute, EKG showed A-fib with slow ventricular response. Patient is in decompensated heart failure and lightheaded. Bilateral groins were draped and prepped in the usual fashion. Using local lidocaine and ultrasound guidance the right common femoral vein was then cannulated, a 7 [place] sheath was inserted sheath was flushed. A 5 [place] balloontipped pacemaker was advanced into the RV apex, adequate capture was obtained. Pacemaker was set at 60 bpm VVI Pacemaker sheath was sutured in place. Patient was sent to ICU in stable condition. Patient was not given anesthesia for this procedure as he was hypoxemic when he lays flat Surgeon: Serena Gee Complications None
[2023-10-09 20:31] LABS: Troponin-I HS 375 pg/mL (3.0-78.0)
== END 2023-10-09 20:10 | disposition short-term general hospital (02) | DRG 280 ==
LOC: ED 12:30 → PCU 12:51 → ICU 13:40
PROVIDERS: Admitting Provider Student in an Organized Health Care Education/Training Program; Emergency Provider Emergency Medicine; PCP Internal Medicine; Visit Provider Student in an Organized Health Care Education/Training Program
DX: R00.1 Bradycardia, unspecified (principal); I21.4 Non-ST elevation (NSTEMI) myocardial infarction; J96.01 Acute respiratory failure with hypoxia; I50.23 Acute on chronic systolic (congestive) heart failure; N18.6 End stage renal disease; C34.11 Malignant neoplasm of upper lobe, right bronchus or lung; I13.2 Hypertensive heart and chronic kidney disease with heart failure and with stage 5 chronic kidney disease, or end stage renal disease; C34.12 Malignant neoplasm of upper lobe, left bronchus or lung; I42.9 Cardiomyopathy, unspecified; S91.302A Unspecified open wound, left foot, initial encounter; J44.9 Chronic obstructive pulmonary disease, unspecified; E11.22 Type 2 diabetes mellitus with diabetic chronic kidney disease; Z99.2 Dependence on renal dialysis; E11.51 Type 2 diabetes mellitus with diabetic peripheral angiopathy without gangrene; Z79.4 Long term (current) use of insulin; I48.11 Longstanding persistent atrial fibrillation; D64.9 Anemia, unspecified; E78.5 Hyperlipidemia, unspecified; E87.5 Hyperkalemia; Z66 Do not resuscitate; Z82.3 Family history of stroke; Z80.0 Family history of malignant neoplasm of digestive organs; Z87.891 Personal history of nicotine dependence; Z79.02 Long term (current) use of antithrombotics/antiplatelets
CPT/HCPCS: 33210; 71045; 76937; 80048; 83605; 83880; 84484; 85025; 87428; 87634; 90937; 93005; 94640; 94762; 97802; 99284; C1894; J7030; J7040; J7050; A4216; C1769; G0257